=== PATIENT | female | born 1990 | race Caucasian/White ===

== ENCOUNTER 2018-02-27 17:34 | Outpatient (CLI) | payer BC, SELFPAY ==
[2018-02-27 18:06] LABS: Absolute Basophil Count 0.04 k/cumm (0.0-0.2); Absolute Monocyte Count 0.37 k/cumm (0.11-0.7); Basophils % 0.7; Eosinophils % 6.5; HCT 39.4 % (36.0-46.0); HGB 13.6 g/dL (12.0-15.5); Immature Grans % 0.2; Lymphocytes % 29.4; Mean Corp. HGB Concentration 34.5 g/dL (32.0-36.0); Mean Corpuscular Hemoglobin 30.6 pg (27.0-33.0); Mean Corpuscular Volume 88.5 fL (80-95); Mean Platelet Volume 10.4 fL (8.0-11.0); Neutrophils % 57.2; Platelet Count 233 x1000/uL (130-400); RBC 4.45 m/cumm (4.00-5.20); RBC Distribution Width 11.8 % (11.7-14.6); White Blood Cell Count 6.12 k/cumm (4.4-10.8)
[2018-02-27 18:20] LABS: Abs Immature Grans 0.01 k/cumm (0.0-0.09)
== END 2018-02-27 17:54 ==
PROVIDERS: PCP Nurse Practitioner Family; Visit Provider Internal Medicine Hematology & Oncology
DX: D69.3 Immune thrombocytopenic purpura (principal)
CPT/HCPCS: 85025

== ENCOUNTER 2018-04-01 20:28 | Emergency (ER) | payer BC, SELFPAY ==
[2018-04-01 20:38] VITALS: BP 125/80; PULSE 97; RESP 18; TEMP 37.5; O2SAT 99
--- NOTE | 2018-04-01 20:56 | W.ED.GENAD ---
Discharge Plan Disposition Patient Disposition: HOME Condition: Stable Discharge Details Chief Complaint: Orthopedic Clinical Impression: Lumbar strain Primary Care Provider: Jessica Mohamud ED Provider: Raji Saldaña Home Meds and New Rx's Prescriptions: New cyclobenzaprine 10 mg tablet 10 mg PO TID PRN (Reason: pain) Qty: 20 RF: 0 Continue cyclobenzaprine 10 mg Tablet 10 mg PO PRN PRNRF: 0 promethazine 12.5 mg Tablet 12.5 mg PO PRN PRNRF: 0 Discharge Instructions Instructions: Low Back Strain (ED) Discharge Data Discharge Physician: Raji Saldaña Medical Decision Making 27 yo female with hx of ITP, fibromyalgia, migraines, who comes in with 2 weeks of lower back pain. Denies fevers, urinary retention, ivdu, fevers, weakness. She denies any trauma or unexplained weight loss. She has pain throughout the lumbar region, no saddle anesthesia and is ambulating on her own. Based on her exam doubt sea or cauda equina or other spinal cord pathology, do not feel emergent MRI indicated. No trauma and no systemic symptoms so doubt fx of cancer at this time so do not feel xray or ct indicated. I suspect muscle spasm vs strain, or possible spinal stenosis vs disc hernaition. Will treat her pain and ressess. She is concered about her plt count so will check this as well pt's pain after a dose of toradol given her plt counts are normal is now to her baseline, stll has reassuing neuro exam. Will d/c and have her f/u with pcp, return precautions given Differential Diagnosis spinal stenosis, disc herniation, muscle spasm HPI General Mode of arrival: ambulatory. Date/Time Provider Initiated Documentation: 04/01/18 20:37. Limitations to Documentation: no limitations. Information obtained by: patient. History of Present Illness 27 year old F presents to the emergency department with the chief complaint of back pain, described as moderate, with intensity rated at 5. Quality is described as aching, and is localized to the back. Patient reports no radiation. Patient started experiencing this week(s) (2) other things that improve symptom(s), (bending forward) No exacerbating factors reported . Patient notes no other symptoms.. Patient did receive the following treatments prior to arrival, other (tylenol) Related Data Home Medications Medication Instructions Recorded Confirmed cyclobenzaprine 10 mg PO PRN PRN 04/01/18 04/01/18 cyclobenzaprine 10 mg PO TID PRN #20 tab 04/01/18 promethazine 12.5 mg PO PRN PRN 04/01/18 04/01/18 Previous Rx's Medication Instructions Recorded cyclobenzaprine 10 mg PO TID PRN #20 tab 04/01/18 Allergies Allergy/AdvReac Type Severity Reaction Status Date / Time chocolate flavor Allergy Severe Painful Unverified 10/07/17 11:31 tongue gluten Allergy Severe Gi Upset Unverified 10/07/17 11:31 ondansetron [From Zofran] Allergy Intermediate Other (See Unverified 04/01/18 20:46 Comment) lactase [From Dairy Aid] AdvReac Unverified 10/07/17 11:31 peanut AdvReac Unverified 10/07/17 11:31 pineapple AdvReac Unverified 10/07/17 11:31 Yeast AdvReac Unverified 10/07/17 11:31 Environmental Allergy Intermediate Runny Uncoded 10/07/17 11:31 nose, sneezing cottage cheese AdvReac Uncoded 10/07/17 11:31 wheat AdvReac Uncoded 10/07/17 11:31 General Stated Complaint: Orthopedic ALL: 4 Review of Systems Review of Systems All systems reviewed & are unremarkable except as noted in HPI and below Constitutional Denies chills, Denies fever(s) and Denies weakness Eyes Denies loss of vision ENT Denies change in voice Cardiovascular Denies chest pain and Denies dyspnea Respiratory Denies dyspnea Gastrointestinal Denies abdominal pain, Denies nausea and Denies vomiting Genitourinary Denies dysuria Musculoskeletal Denies joint swelling Integumentary/Breasts Denies rash Neurologic Denies loss of vision and Denies weakness Psychiatric Denies depression Endocrine Denies cold intolerance and Denies heat intolerance Allergic/Immunologic Reports urticaria PFSH Family History Mother Polyp of colon Grandmother Diabetes Polyp of colon aunt Diabetes Polyp of colon uncle Diabetes Polyp of colon Medical History Migraine Social History Smoking/Tobacco Use Status: Former Tobacco Use Exam Const General: no acute distress Orientation: alert HENMT Head: normal to inspection Ears: external ears normal General nose exam: external nose normal Mouth: moist mucous membranes Eyes General: appearance normal, both eyes and all related structures Neck Neck: normal visual inspection Resp Effort & Inspection: normal respiratory effort and able to speak in complete sentences Cardio Rate: regular rate Skin General skin exam: no rashes or lesions noted Neuro General: alert and oriented x3 Extrem General: normal to inspection Psych Mental Status: mental status grossly normal Course Vital Signs Temperature 37.5 C 04/01/18 20:38 Pulse 97 H 04/01/18 20:38 Respiratory Rate 18 04/01/18 20:38 Blood Pressure 125/80 04/01/18 20:38 Pulse Oximetry 99 04/01/18 20:38 Temperature 37.5 C 04/01/18 20:38 Temperature Source Temporal Artery Scan 04/01/18 20:38 Pulse 97 H 04/01/18 20:38 Respiratory Rate 18 04/01/18 20:38 Respiratory Effort 04/01/18 20:38 Blood Pressure 125/80 04/01/18 20:38 Pulse Oximetry 99 04/01/18 20:38 Oxygen Delivery Method Room Air 04/01/18 20:38 Oxygen Flow Rate 0 04/01/18 20:38 Pain Level 8 04/01/18 20:44
[2018-04-01] MEDS: Cyclobenzaprine 10 MG TAB PO ×2 (20:58→22:44)
--- NOTE | 2018-04-01 20:59 | ED.GENADUL_ITS ---
Discharge Plan Disposition Patient Disposition: HOME Condition: Stable Discharge Details Chief Complaint: Orthopedic Clinical Impression: Lumbar strain Primary Care Provider: Jessica Mohamud ED Provider: Raji Saldaña Home Meds and New Rx's Prescriptions: New cyclobenzaprine 10 mg tablet 10 mg PO TID PRN (Reason: pain) Qty: 20 RF: 0 Continue cyclobenzaprine 10 mg Tablet 10 mg PO PRN PRNRF: 0 promethazine 12.5 mg Tablet 12.5 mg PO PRN PRNRF: 0 Discharge Instructions Instructions: Low Back Strain (ED) Discharge Data Discharge Physician: Raji Saldaña Medical Decision Making 27 yo female with hx of ITP, fibromyalgia, migraines, who comes in with 2 weeks of lower back pain. Denies fevers, urinary retention, ivdu, fevers, weakness. She denies any trauma or unexplained weight loss. She has pain throughout the lumbar region, no saddle anesthesia and is ambulating on her own. Based on her exam doubt sea or cauda equina or other spinal cord pathology, do not feel emergent MRI indicated. No trauma and no systemic symptoms so doubt fx of cancer at this time so do not feel xray or ct indicated. I suspect muscle spasm vs strain, or possible spinal stenosis vs disc hernaition. Will treat her pain and ressess. She is concered about her plt count so will check this as well pt's pain after a dose of toradol given her plt counts are normal is now to her baseline, stll has reassuing neuro exam. Will d/c and have her f/u with pcp, return precautions given Differential Diagnosis spinal stenosis, disc herniation, muscle spasm HPI General Mode of arrival: ambulatory . Date/Time Provider Initiated Documentation: 04/01/18 20:37 . Limitations to Documentation: no limitations . Information obtained by: patient . History of Present Illness 27 year old F presents to the emergency department with the chief complaint of back pain, described as moderate, with intensity rated at 5. Quality is described as aching, and is localized to the back. Patient reports no radiation. Patient started experiencing this week(s) (2) other things that improve symptom(s), (bending forward) No exacerbating factors reported . Patient notes no other symptoms.. Patient did receive the following treatments prior to arrival, other (tylenol) Related Data Home Medications Medication Instructions Recorded Confirmed cyclobenzaprine 10 mg PO PRN PRN 04/01/18 04/01/18 cyclobenzaprine 10 mg PO TID PRN #20 tab 04/01/18 promethazine 12.5 mg PO PRN PRN 04/01/18 04/01/18 Previous Rx's Medication Instructions Recorded cyclobenzaprine 10 mg PO TID PRN #20 tab 04/01/18 Allergies Allergy/AdvReac Type Severity Reaction Status Date / Time chocolate flavor Allergy Severe Painful Unverified 10/07/17 11:31 tongue gluten Allergy Severe Gi Upset Unverified 10/07/17 11:31 ondansetron [From Zofran] Allergy Intermediate Other (See Unverified 04/01/18 20 :46 Comment) lactase [From Dairy Aid] AdvReac Unverified 10/07/17 11:31 peanut AdvReac Unverified 10/07/17 11:31 pineapple AdvReac Unverified 10/07/17 11:31 Yeast AdvReac Unverified 10/07/17 11:31 Environmental Allergy Intermediate Runny Uncoded 10/07/17 11:31 nose, sneezing cottage cheese AdvReac Uncoded 10/07/17 11:31 wheat AdvReac Uncoded 10/07/17 11:31 General Stated Complaint: Orthopedic ALL: 4 Review of Systems Review of Systems All systems reviewed & are unremarkable except as noted in HPI and below Constitutional Denies chills, Denies fever(s) and Denies weakness Eyes Denies loss of vision ENT Denies change in voice Cardiovascular Denies chest pain and Denies dyspnea Respiratory Denies dyspnea Gastrointestinal Denies abdominal pain, Denies nausea and Denies vomiting Genitourinary Denies dysuria Musculoskeletal Denies joint swelling Integumentary/Breasts Denies rash Neurologic Denies loss of vision and Denies weakness Psychiatric Denies depression Endocrine Denies cold intolerance and Denies heat intolerance Allergic/Immunologic Reports urticaria PFSH Family History Mother Polyp of colon Grandmother Diabetes Polyp of colon aunt Diabetes Polyp of colon uncle Diabetes Polyp of colon Medical History Migraine Social History Smoking/Tobacco Use Status: Former Tobacco Use Exam Const General: no acute distress Orientation: alert HENMT Head: normal to inspection Ears: external ears normal General nose exam: external nose normal Mouth: moist mucous membranes Eyes General: appearance normal, both eyes and all related structures Neck Neck: normal visual inspection Resp Effort & Inspection: normal respiratory effort and able to speak in complete sentences Cardio Rate: regular rate Skin General skin exam: no rashes or lesions noted Neuro General: alert and oriented x3 Extrem General: normal to inspection Psych Mental Status: mental status grossly normal Course Vital Signs Temperature 37.5 C 04/01/18 20:38 Pulse 97 H 04/01/18 20:38 Respiratory Rate 18 04/01/18 20:38 Blood Pressure 125/80 04/01/18 20:38 Pulse Oximetry 99 04/01/18 20:38 Temperature 37.5 C 04/01/18 20:38 Temperature Source Temporal Artery Scan 04/01/18 20:38 Pulse 97 H 04/01/18 20:38 Respiratory Rate 18 04/01/18 20:38 Respiratory Effort 04/01/18 20:38 Blood Pressure 125/80 04/01/18 20:38 Pulse Oximetry 99 04/01/18 20:38 Oxygen Delivery Method Room Air 04/01/18 20:38 Oxygen Flow Rate 0 04/01/18 20:38 Pain Level 8 04/01/18 20:44
[2018-04-01] MEDS: Promethazine 25 MG TAB (21:02)
[2018-04-01 21:12] LABS: Abs Immature Grans 0.02 k/cumm (0.0-0.09); Absolute Basophil Count 0.04 k/cumm (0.0-0.2); Absolute Eosinophil Count 0.37 k/cumm (0.0-0.7); Absolute Lymphocyte Count 3.23 k/cumm (1.2-3.4); Absolute Monocyte Count 0.68 k/cumm (0.11-0.7); Absolute Neutrophil Count 6.73 k/cumm (1.2-6.7); Basophils % 0.4; Eosinophils % 3.3; HCT 37.1 % (36.0-46.0); HGB 13.2 g/dL (12.0-15.5); Immature Grans % 0.2; Lymphocytes % 29.2; Mean Corp. HGB Concentration 35.6 g/dL (32.0-36.0); Mean Corpuscular Hemoglobin 30.8 pg (27.0-33.0); Mean Corpuscular Volume 86.7 fL (80-95); Mean Platelet Volume 9.6 fL (8.0-11.0); Monocytes % 6.1; Neutrophils % 60.8; Platelet Count 247 x1000/uL (130-400); RBC 4.28 m/cumm (4.00-5.20); RBC Distribution Width 11.9 % (11.7-14.6); White Blood Cell Count 11.07 k/cumm (4.4-10.8)
[2018-04-01] MEDS: Ketorolac 30 MG/ML VIAL IM (22:09)
[2018-04-01] MEDS: Promethazine 25 MG TAB PO (22:09)
== END 2018-04-01 22:53 | disposition home or self-care (01) ==
PROVIDERS: Emergency Provider Emergency Medicine; PCP Nurse Practitioner Family
DX: S39.012A Strain of muscle, fascia and tendon of lower back, initial encounter (principal); X50.9XXA Other and unspecified overexertion or strenuous movements or postures, initial encounter
CPT/HCPCS: 36415; 96372; 99284; 85025; 99283; J1885

== ENCOUNTER 2018-04-21 01:22 | Emergency (ER) | payer BC, SELFPAY ==
[2018-04-21 01:31] VITALS: BP 130/91; PULSE 116; RESP 16; TEMP 36.6; O2SAT 99
--- NOTE | 2018-04-21 02:11 | W.ED.GENAD ---
Discharge Plan Disposition Patient Disposition: HOME Condition: Good Discharge Details Chief Complaint: Nausea/Vomit/Diar Clinical Impression: Abdominal cramping, Nausea, vomiting, and diarrhea Primary Care Provider: Jessica Mohamud ED Provider: Pacheco Russell Meds and Gianfranco Rx's Prescriptions: New metronidazole 500 mg tablet 500 mg PO TID Qty: 20 RF: 0 dicyclomine 20 mg tablet 20 mg PO Q6H PRN PRN (Reason: cramping) Qty: 7 RF: 0 promethazine 25 mg tablet 25 mg PO Q6H PRN (Reason: nausea and vomiting) Qty: 20 RF: 0 Continue cyclobenzaprine 10 mg tablet 10 mg PO TID PRN (Reason: pain) Qty: 20 RF: 0 Discontinued promethazine 12.5 mg Tablet 12.5 mg PO PRN PRNRF: 0 Discharge Instructions Instructions: Metronidazole (By mouth), Acute Nausea and Vomiting (ED) Additional Instructions: Use the promethazine for nausea and vomiting. Use the dicyclomine for abdominal cramping. May use Tylenol for pain and fever as well. Antibiotic for presumed colitis. Follow-up with your doctor this week. Return to ED for high fever, persistent vomiting, worsening abdominal pain, bloody diarrhea Referrals: Jessica Mohamud [Primary Care Provider] - Medical Decision Making Patient presenting with nausea, vomiting, diarrhea acute onset this evening. Prior history of colitis for which she has been scoped a number of times with no clear etiology made. There has been no blood in her diarrhea. Her abdomen is mildly tender on the left side. IV is established and fluids and Phenergan ordered. Laboratory studies were ordered. Patient does have an elevated white count 16. Platelets counts are normal tonight at 236. Chemistries unremarkable other than slightly low potassium at 3.4. Liver function and lipase are normal. Urine positive for some blood and ketones. She does have a few red cells and white cells on micro but has many epithelial cells suggesting contamination. She has no urinary symptoms so this is not treated. Patient does feel better after Bentyl. She has not had further vomiting. She still has some abdominal discomfort to palpation but no guarding and nothing surgical. She did spike a low-grade fever here. She has had a handful of CAT scans in the past. I really do not want to rescan her tonight. It is possible that she has recurrent colitis but since it has been indeterminate I do not wish to start her on prednisone. I think it reasonable to try Flagyl and have her follow-up with primary care this week. Return to ED for worsening abdominal pain, bloody diarrhea, persistent vomiting, continued high fevers. HPI General Mode of arrival: ambulatory. Date/Time Provider Initiated Documentation: 04/21/18 02:10. Limitations to Documentation: no limitations. Information obtained by: patient. HPI Narrative: Patient presents to ED with complaints of nausea, vomiting, diarrhea since earlier this evening. She has been unable to keep anything down despite taking Zofran and Phenergan at home. She reports nonbloody emesis and diarrhea. She apparently has history of colitis of unknown etiology. She has no fever. She has crampy abdominal pain more left-sided than right. She has no urinary symptoms other than decreased urination. She has no vaginal bleeding or discharge. She denies . Related Data Home Medications Medication Instructions Recorded Confirmed cyclobenzaprine 10 mg PO TID PRN #20 tab 04/01/18 04/21/18 dicyclomine 20 mg PO Q6H PRN PRN #7 tab 04/21/18 metronidazole 500 mg PO TID #20 tab 04/21/18 promethazine 25 mg PO Q6H PRN #20 tab 04/21/18 Previous Rx's Medication Instructions Recorded cyclobenzaprine 10 mg PO TID PRN #20 tab 04/01/18 dicyclomine 20 mg PO Q6H PRN PRN #7 tab 04/21/18 metronidazole 500 mg PO TID #20 tab 04/21/18 promethazine 25 mg PO Q6H PRN #20 tab 04/21/18 Allergies Allergy/AdvReac Type Severity Reaction Status Date / Time chocolate flavor Allergy Severe Painful Unverified 04/21/18 01:35 tongue gluten Allergy Severe Gi Upset Unverified 04/21/18 01:35 ondansetron [From Zofran] Allergy Intermediate Other (See Unverified 04/21/18 01:35 Comment) lactase [From Dairy Aid] AdvReac Unverified 04/21/18 01:35 peanut AdvReac Unverified 04/21/18 01:35 pineapple AdvReac Unverified 04/21/18 01:35 Yeast AdvReac Unverified 04/21/18 01:35 Environmental Allergy Intermediate Runny Uncoded 04/21/18 01:35 nose, sneezing cottage cheese AdvReac Uncoded 04/21/18 01:35 wheat AdvReac Uncoded 04/21/18 01:35 General Stated Complaint: Nausea/Vomit/Diar ALL: 3 Review of Systems Constitutional Denies chills, Denies fever(s), Denies headache(s) and Denies weakness Eyes Denies eye discharge and Denies eye pain ENT Denies headache(s), Denies nasal congestion and Denies sore throat Cardiovascular Denies chest pain, Denies rapid heart rate and Denies dyspnea Respiratory Denies cough and Denies dyspnea Gastrointestinal Reports abdominal pain, Denies melena, Denies hematochezia, Reports cramping, Reports diarrhea, Reports nausea, Reports vomiting and Denies hematemesis Genitourinary Denies abnormal vaginal bleeding, Denies dysuria and Denies flank pain Musculoskeletal Denies back pain, Denies myalgias, Denies arthralgias and Denies numbness Integumentary/Breasts Denies rash Neurologic Denies headache(s), Denies numbness and Denies weakness Exam Const General: cooperative and no acute distress Orientation: alert and oriented x3 [facility] Head: normocephalic and atraumatic Mouth: mucous membranes dry Eyes Conjunctivae: conjunctivae normal Sclera: sclerae normal Resp Effort & Inspection: normal respiratory effort Auscultation: clear to auscultation bilaterally Cardio Rate: regular rate Rhythm: regular rhythm Heart Sounds: S1 normal and S2 normal GI Inspection: normal to inspection Palpation: soft, not firm, no guarding and tender (mildly tender to palpation on left) Auscultation: normal bowel sounds Skin General skin exam: no rashes or lesions noted Neuro General: alert, oriented x3, no focal motor deficits and CN's II-XI intact bilaterally Extrem General: normal to inspection and full ROM Course Vital Signs Temperature 97.9 F 04/21/18 01:31 Pulse 116 H 04/21/18 01:31 Respiratory Rate 16 04/21/18 01:31 Blood Pressure 130/91 H 04/21/18 01:31 Pulse Oximetry 99 04/21/18 01:31 Temperature 97.9 F 04/21/18 01:31 Temperature Source Skin 04/21/18 01:31 Pulse 116 H 04/21/18 01:31 Respiratory Rate 16 04/21/18 01:31 Respiratory Effort Non-Labored 04/21/18 01:33 Blood Pressure 130/91 H 04/21/18 01:31 Pulse Oximetry 99 04/21/18 01:31 Pain Level 6 04/21/18 01:31
--- NOTE | 2018-04-21 02:17 | ED.GENADUL_ITS ---
Discharge Plan Disposition Patient Disposition: HOME Condition: Good Discharge Details Chief Complaint: Nausea/Vomit/Diar Clinical Impression: Abdominal cramping, Nausea, vomiting, and diarrhea Primary Care Provider: Jessica Mohamud ED Provider: Pacheco Russell Meds and Gianfranco Rx's Prescriptions: New metronidazole 500 mg tablet 500 mg PO TID Qty: 20 RF: 0 dicyclomine 20 mg tablet 20 mg PO Q6H PRN PRN (Reason: cramping) Qty: 7 RF: 0 promethazine 25 mg tablet 25 mg PO Q6H PRN (Reason: nausea and vomiting) Qty: 20 RF: 0 Continue cyclobenzaprine 10 mg tablet 10 mg PO TID PRN (Reason: pain) Qty: 20 RF: 0 Discontinued promethazine 12.5 mg Tablet 12.5 mg PO PRN PRNRF: 0 Discharge Instructions Instructions: Metronidazole (By mouth), Acute Nausea and Vomiting (ED) Additional Instructions: Use the promethazine for nausea and vomiting. Use the dicyclomine for abdominal cramping. May use Tylenol for pain and fever as well. Antibiotic for presumed colitis. Follow-up with your doctor this week. Return to ED for high fever, persistent vomiting, worsening abdominal pain, bloody diarrhea Referrals: Jessica Mohamud [Primary Care Provider] - Medical Decision Making Patient presenting with nausea, vomiting, diarrhea acute onset this evening. Prior history of colitis for which she has been scoped a number of times with no clear etiology made. There has been no blood in her diarrhea. Her abdomen is mildly tender on the left side. IV is established and fluids and Phenergan ordered. Laboratory studies were ordered. Patient does have an elevated white count 16. Platelets counts are normal tonight at 236. Chemistries unremarkable other than slightly low potassium at 3.4. Liver function and lipase are normal. Urine positive for some blood and ketones. She does have a few red cells and white cells on micro but has many epithelial cells suggesting contamination. She has no urinary symptoms so this is not treated. Patient does feel better after Bentyl. She has not had further vomiting. She still has some abdominal discomfort to palpation but no guarding and nothing surgical. She did spike a low-grade fever here. She has had a handful of CAT scans in the past. I really do not want to rescan her tonight. It is possible that she has recurrent colitis but since it has been indeterminate I do not wish to start her on prednisone. I think it reasonable to try Flagyl and have her follow-up with primary care this week. Return to ED for worsening abdominal pain, bloody diarrhea, persistent vomiting, continued high fevers. HPI General Mode of arrival: ambulatory . Date/Time Provider Initiated Documentation: 04/21/18 02:10 . Limitations to Documentation: no limitations . Information obtained by: patient . HPI Narrative: Patient presents to ED with complaints of nausea, vomiting, diarrhea since earlier this evening. She has been unable to keep anything down despite taking Zofran and Phenergan at home. She reports nonbloody emesis and diarrhea. She apparently has history of colitis of unknown etiology. She has no fever. She has crampy abdominal pain more left-sided than right. She has no urinary symptoms other than decreased urination. She has no vaginal bleeding or discharge. She denies . Related Data Home Medications Medication Instructions Recorded Confirmed cyclobenzaprine 10 mg PO TID PRN #20 tab 04/01/18 04/21/18 dicyclomine 20 mg PO Q6H PRN PRN #7 tab 04/21/18 metronidazole 500 mg PO TID #20 tab 04/21/18 promethazine 25 mg PO Q6H PRN #20 tab 04/21/18 Previous Rx's Medication Instructions Recorded cyclobenzaprine 10 mg PO TID PRN #20 tab 04/01/18 dicyclomine 20 mg PO Q6H PRN PRN #7 tab 04/21/18 metronidazole 500 mg PO TID #20 tab 04/21/18 promethazine 25 mg PO Q6H PRN #20 tab 04/21/18 Allergies Allergy/AdvReac Type Severity Reaction Status Date / Time chocolate flavor Allergy Severe Painful Unverified 04/21/18 01:35 tongue gluten Allergy Severe Gi Upset Unverified 04/21/18 01:35 ondansetron [From Zofran] Allergy Intermediate Other (See Unverified 04/21/18 01 :35 Comment) lactase [From Dairy Aid] AdvReac Unverified 04/21/18 01:35 peanut AdvReac Unverified 04/21/18 01:35 pineapple AdvReac Unverified 04/21/18 01:35 Yeast AdvReac Unverified 04/21/18 01:35 Environmental Allergy Intermediate Runny Uncoded 04/21/18 01:35 nose, sneezing cottage cheese AdvReac Uncoded 04/21/18 01:35 wheat AdvReac Uncoded 04/21/18 01:35 General Stated Complaint: Nausea/Vomit/Diar ALL: 3 Review of Systems Constitutional Denies chills, Denies fever(s), Denies headache(s) and Denies weakness Eyes Denies eye discharge and Denies eye pain ENT Denies headache(s), Denies nasal congestion and Denies sore throat Cardiovascular Denies chest pain, Denies rapid heart rate and Denies dyspnea Respiratory Denies cough and Denies dyspnea Gastrointestinal Reports abdominal pain, Denies melena, Denies hematochezia, Reports cramping, Reports diarrhea, Reports nausea, Reports vomiting and Denies hematemesis Genitourinary Denies abnormal vaginal bleeding, Denies dysuria and Denies flank pain Musculoskeletal Denies back pain, Denies myalgias, Denies arthralgias and Denies numbness Integumentary/Breasts Denies rash Neurologic Denies headache(s), Denies numbness and Denies weakness Exam Const General: cooperative and no acute distress Orientation: alert and oriented x3 [facility] Head: normocephalic and atraumatic Mouth: mucous membranes dry Eyes Conjunctivae: conjunctivae normal Sclera: sclerae normal Resp Effort & Inspection: normal respiratory effort Auscultation: clear to auscultation bilaterally Cardio Rate: regular rate Rhythm: regular rhythm Heart Sounds: S1 normal and S2 normal GI Inspection: normal to inspection Palpation: soft, not firm, no guarding and tender (mildly tender to palpation on left) Auscultation: normal bowel sounds Skin General skin exam: no rashes or lesions noted Neuro General: alert, oriented x3, no focal motor deficits and CN's II-XI intact bilaterally Extrem General: normal to inspection and full ROM Course Vital Signs Temperature 97.9 F 04/21/18 01:31 Pulse 116 H 04/21/18 01:31 Respiratory Rate 16 04/21/18 01:31 Blood Pressure 130/91 H 04/21/18 01:31 Pulse Oximetry 99 04/21/18 01:31 Temperature 97.9 F 04/21/18 01:31 Temperature Source Skin 04/21/18 01:31 Pulse 116 H 04/21/18 01:31 Respiratory Rate 16 04/21/18 01:31 Respiratory Effort Non-Labored 04/21/18 01:33 Blood Pressure 130/91 H 04/21/18 01:31 Pulse Oximetry 99 04/21/18 01:31 Pain Level 6 04/21/18 01:31
[2018-04-21 02:28] LABS: Abs Immature Grans 0.04 k/cumm (0.0-0.09); Absolute Eosinophil Count 0.19 k/cumm (0.0-0.7); Absolute Monocyte Count 1.09 k/cumm (0.11-0.7); Absolute Neutrophil Count 13.52 k/cumm (1.2-6.7); Basophils % 0.2; Eosinophils % 1.2; HGB 13.7 g/dL (12.0-15.5); Immature Grans % 0.2; Lymphocytes % 7.5; Mean Corp. HGB Concentration 35.1 g/dL (32.0-36.0); Mean Corpuscular Hemoglobin 31.1 pg (27.0-33.0); Mean Corpuscular Volume 88.6 fL (80-95); Mean Platelet Volume 9.4 fL (8.0-11.0); Monocytes % 6.8; Neutrophils % 84.1; Platelet Count 236 x1000/uL (130-400); RBC Distribution Width 12.1 % (11.7-14.6); White Blood Cell Count 16.08 k/cumm (4.4-10.8)
[2018-04-21 02:30] LABS: Absolute Basophil Count 0.03 k/cumm (0.0-0.2); Absolute Lymphocyte Count 1.21 k/cumm (1.2-3.4)
[2018-04-21] MEDS: Normal Saline 1,000 ML 1000 ML IV (02:33)
[2018-04-21 02:40] LABS: ALT 19 U/L (12-78); AST 17 U/L (15-37); Albumin 4.2 g/dL (3.4-5.0); Alkaline Phosphatase 69 U/L (46-116); Anion Gap 11.2 mmol/L (3-11); BUN 8 mg/dL (7-18); Bilirubin, Total 0.9 mg/dL (0.2-1.0); CO2 26.8 mmol/L (21.0-32.0); CREATININE 0.87 mg/dL (0.55-1.02); Calcium 8.8 mg/dL (8.5-10.1); Chloride 103 mmol/L (98-107); Glucose 96 mg/dL (70-100); Lipase 125 U/L (73-393); Potassium 3.4 mmol/L (3.5-5.1); Sodium 141 mmol/L (136-145); Total Protein 7.4 g/dL (6.4-8.2)
[2018-04-21 03:19] LABS: Bilirubin Negative (Negative); Blood Moderate (Negative); Clarity Sl Cloudy; Glucose Negative (Negative); Ketones 15 mg/dL (Negative); Leukocyte Esterase Negative (Negative); Nitrite Negative (Negative); Specific Gravity 1.025 (1.005-1.025); Urobilinogen 0.2 EU/dL (Up TO 0.2)
[2018-04-21 03:26] LABS: Bacteria Few HPF (Negative); C & S Indicated? No/Sq. Contamination; Casts Negative LPF (Negative); Crystals Negative HPF (Negative); Epithelial Cells Many HPF (Negative); Mucus Heavy (Negative)
[2018-04-21] MEDS: Dicyclomine 20 MG TAB PO (03:28)
[2018-04-21 04:46] VITALS: BP 108/64; PULSE 96; RESP 16; TEMP 38; O2SAT 97
[2018-04-21] MEDS: metroNIDAZOLE 500 MG TAB PO (05:00)
== END 2018-04-21 05:05 | disposition home or self-care (01) ==
PROVIDERS: Emergency Provider Emergency Medicine; PCP Nurse Practitioner Family
DX: R11.2 Nausea with vomiting, unspecified (principal); R19.7 Diarrhea, unspecified; R10.32 Left lower quadrant pain; E87.6 Hypokalemia
CPT/HCPCS: 36415; 80053; 81025; 83690; 96361; 96365; 99284; 81003; 81015; 85025

== ENCOUNTER 2018-06-17 02:58 | Outpatient (CLI) | payer BC, SELFPAY ==
[2018-06-17 10:18] LABS: Abs Immature Grans 0.01 k/cumm (0.0-0.09); Absolute Basophil Count 0.04 k/cumm (0.0-0.2); Absolute Lymphocyte Count 2.16 k/cumm (1.2-3.4); Absolute Monocyte Count 0.46 k/cumm (0.11-0.7); Absolute Neutrophil Count 3.81 k/cumm (1.2-6.7); Basophils % 0.6; Eosinophils % 4.4; HCT 40.2 % (36.0-46.0); Immature Grans % 0.1; Lymphocytes % 31.9; Mean Corp. HGB Concentration 34.8 g/dL (32.0-36.0); Mean Corpuscular Hemoglobin 31.1 pg (27.0-33.0); Mean Corpuscular Volume 89.3 fL (80-95); Mean Platelet Volume 10.2 fL (8.0-11.0); Monocytes % 6.8; Neutrophils % 56.2; Platelet Count 237 x1000/uL (130-400); RBC Distribution Width 12.2 % (11.7-14.6); White Blood Cell Count 6.78 k/cumm (4.4-10.8)
== END 2018-06-17 03:18 ==
PROVIDERS: PCP Nurse Practitioner Family; Visit Provider Internal Medicine Hematology & Oncology
DX: D69.3 Immune thrombocytopenic purpura (principal)
CPT/HCPCS: 36415; 85025

== ENCOUNTER 2018-07-02 09:57 | Emergency (ER) | payer BC, SELFPAY ==
[2018-07-02] VITALS (12 sets, daily range): BP systolic 109–115; BP diastolic 62–75; PULSE 85–102; RESP 9–18; TEMP 36.8–37; O2SAT 98–100
--- NOTE | 2018-07-02 10:28 | ED.GENADUL_ITS ---
Discharge Plan Disposition Patient Disposition: HOME Condition: Stable Discharge Details Chief Complaint: Dizzy/Sync Clinical Impression: Vertigo Primary Care Provider: Jessica Mohamud ED Provider: Chantale Phelps Home Meds and New Rx's Prescriptions: New meclizine 25 mg tablet 25 mg PO BID PRN (Reason: vertigo) Qty: 10 RF: 0 Continued cyclobenzaprine 10 mg tablet 10 mg PO TID PRN (Reason: pain) Qty: 20 RF: 0 metronidazole 500 mg tablet 500 mg PO TID Qty: 20 RF: 0 dicyclomine 20 mg tablet 20 mg PO Q6H PRN PRN (Reason: cramping) Qty: 7 RF: 0 promethazine 25 mg tablet 25 mg PO Q6H PRN (Reason: nausea and vomiting) Qty: 20 RF: 0 Discharge Instructions Instructions: Meclizine (By mouth), Vertigo (ED) Additional Instructions: Please return immediately to the emergency department if you develop any new or worsening symptoms or if you become otherwise concerned. It is extremely important that you make an appointment to be seen by your primary care doctor within the next 1-2 weeks in follow-up for this visit. 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 On exam Pt is very well and non-toxic appearing. Neuro exam shows no objective deficit. Unclear peripheral vs central etiology of vertigo, possible metabolic/lyte derangement. Although unlikey, given ITP, raynauds, Pt may have underlying process that would predispose her to CVA. Do not suspect arrhythmia, as Pt with symptoms while in NSR on monitor. Exam/hx not c/w meningitis, ACS, sepsis, other acute emergent life-threatening process. Plan for MRI/MRA brain, screening labs, IVF, meclizine. I discussed imaging tests with Dr. Mi, who reported MRA unnecessary to diagnose posterior circulation CVA. EKG okay. MRI brain neg. Pt reports feeling much better after meclizine. Has been ambulating about ED without issue. Plan for rx meclizine for peripheral vertigo. Lengthy discussion with Pt and her father re: RTED precautions and importance of outpt f/u with PCP. Pt verbalizes understanding of the plan and is amenable. Medical Records Medical records reviewed: Yes I reviewed the patient's medical records. Imaging Data Radiologic Study: Radiologist's impression: MRI neg per radiology Lab Data Lab results reviewed: Yes I reviewed the patient's lab results. Laboratory Tests Range/Units 07/02/18 07/02/18 07/02/18 11:00 12:34 12:34 WBC (4.4-10.8) k/cumm 7.17 RBC (4.00-5.20) m/cumm 4.34 Hgb (12.0-15.5) g/dL 13.6 Hct (36.0-46.0) % 39.0 MCV (80-95) fL 89.9 MCH (27.0-33.0) pg 31.3 MCHC (32.0-36.0) g/dL 34.9 RDW (11.7-14.6) % 12.0 Plt Count (130-400) x1000/uL 256 MPV (8.0-11.0) fL 9.3 Immature Gran % 0.1 Neutrophils % 59.5 Lymphocytes % 30.1 Monocytes % 6.4 Eosinophils % 3.5 Basophils % 0.4 Absolute Neutrophils (1.2-6.7) k/cumm 4.26 Absolute Lymphocytes (1.2-3.4) k/cumm 2.16 Absolute Monocytes (0.11-0.7) k/cumm 0.46 Absolute Eosinophils (0.0-0.7) k/cumm 0.25 Absolute Basophils (0.0-0.2) k/cumm 0.03 Sodium (136-145) mmol/L 141 Potassium (3.5-5.1) mmol/L 3.4 L Chloride (98-107) mmol/L 106 Carbon Dioxide (21.0-32.0) mmol/L 24.7 Anion Gap (3-11) mmol/L 10.3 BUN (7-18) mg/dL 8 Creatinine (0.55-1.02) mg/dL 0.87 Estimated GFR/1.73 m2 (mL/min/1.73m2) >= 60.00 Glucose (70-100) mg/dL 100 Calcium (8.5-10.1) mg/dL 8.8 Total Bilirubin (0.2-1.0) mg/dL 0.6 AST (15-37) U/L 19 ALT (12-78) U/L 18 Alkaline Phosphatase (46-116) U/L 68 Total Protein (6.4-8.2) g/dL 7.7 Albumin (3.4-5.0) g/dL 4.2 Urine Color (Yellow) Yellow Urine Clarity Clear Urine pH (5-8) 7.0 Ur Specific [place] (1.005-1.025) 1.010 Urine Protein (Negative) mg/dL Negative Urine Ketones (Negative) mg/dL Negative Urine Blood (Negative) Negative Urine Nitrite (Negative) Negative Urine Bilirubin (Negative) Negative Urine Urobilinogen (Up TO 0.2) EU/dL 0.2 Ur Leukocyte Esterase (Negative) Negative Urine Glucose (Negative) mg/dL Negative ECG Data Attestation: I personally reviewed and interpreted this ECG (s) as follows: Interpretation: EKG shows normal sinus rhythm at 79, normal axis, no acute ischemic changes, no Brugada, no WPW, no long QT, no HOCM HPI General Mode of arrival: ambulatory . Date/Time Provider Initiated Documentation: 07/02/18 10:28 . Limitations to Documentation: no limitations . Information obtained by: patient, RN notes reviewed and old records reviewed . HPI Narrative: Daniela Ruiz is a 27 y/o woman with history of renal disease, ITP first treated 1 year ago, IBS, asthma presenting to the emergency department with vertigo. Patient reports that 2 days ago she had a sensation of rotation and also as if her whole head was shaking. This occurred at bedtime, although patient was able to go to sleep. When she awoke symptoms have resolved. Patient reports that she had similar sensation again last night, and again went to bed. Patient reports that she when she woke up this morning sensation of motion had increased. She did go to work, but noticed that whenever she was standing up she felt somewhat lightheaded, and also had difficulty walking down the hallway due to feeling off balance. When she tried to sit on the toilet she missed since on the ground due to being off balance. Patient has not fallen or hit her head. She describes her symptoms as a sense of motion and not as a sense of being about to faint. Has not had any loss of consciousness. She denies having any pain. She has had no nausea/vomiting/diarrhea. Patient reports fever without any symptoms for 4 days approximately 2 weeks ago, but otherwise has not had any recent illness. Has been eating and drinking as usual. No recent alcohol or drug use. No recent travel. Has never had similar symptoms in the past. Related Data Home Medications Medication Instructions Recorded Confirmed cyclobenzaprine 10 mg PO TID PRN #20 tab 04/01/18 07/02/18 dicyclomine 20 mg PO Q6H PRN PRN #7 tab 04/21/18 07/02/18 metronidazole 500 mg PO TID #20 tab 04/21/18 07/02/18 promethazine 25 mg PO Q6H PRN #20 tab 04/21/18 07/02/18 meclizine 25 mg PO BID PRN #10 tab 07/02/18 Previous Rx's Medication Instructions Recorded cyclobenzaprine 10 mg PO TID PRN #20 tab 04/01/18 dicyclomine 20 mg PO Q6H PRN PRN #7 tab 04/21/18 metronidazole 500 mg PO TID #20 tab 04/21/18 promethazine 25 mg PO Q6H PRN #20 tab 04/21/18 meclizine 25 mg PO BID PRN #10 tab 07/02/18 Allergies Allergy/AdvReac Type Severity Reaction Status Date / Time chocolate flavor Allergy Severe Painful Unverified 07/02/18 10:07 tongue gluten Allergy Severe Gi Upset Unverified 07/02/18 10:07 ondansetron [From Zofran] Allergy Intermediate Other (See Unverified 07/02/18 10:07 Comment) lactase [From Dairy Aid] AdvReac Unverified 07/02/18 10:07 peanut AdvReac Unverified 07/02/18 10:07 pineapple AdvReac Unverified 07/02/18 10:07 Yeast AdvReac Unverified 07/02/18 10:07 Environmental Allergy Intermediate Runny Uncoded 07/02/18 10:07 nose, sneezing cottage cheese AdvReac Uncoded 07/02/18 10:07 wheat AdvReac Uncoded 07/02/18 10:07 General Stated Complaint: Dizzy/Sync ALL: 2 Review of Systems Review of Systems Constitutional: denies fevers Eyes: denies eye pain ENT: denies facial pain, dental pain, sore throat, ear pain, tinnitus Cardiovascular: denies chest pain, edema Respiratory: denies SOB, cough GI: denies abdominal pain, vomiting, diarrhea : denies flank pain MSK: denies back pain, neck pain, arthralgias, myalgias Skin: denies rash Neuro: denies headaches, weakness, reports vertigo, lightheadedness PFSH Medical History Colitis (Acute) History of ITP (Chronic) Migraine Social History Smoking/Tobacco Use Status: Former Tobacco Use Exam Narrative Exam Narrative: Constitutional: well and [id number], pleasant, conversing normally HENT: head atraumatic, normocephalic normal inspection, mucous membranes moist, b/l TMs and canals normal Eyes: conjunctiva normal, sclera normal, PERRLA 3mm, EOMI without nystagmus Neck: no stridor, normal ROM, trachea midline Chest: normal inspection Resp: normal work of breathing, LCTAB Cardio: normal rate, normal rhythm, no murmur appreciated GI: abdomen soft, non-tender, non-distended Back: normal inspection, no rash Skin: warm, dry, normal color, no rash Neuro: alert, 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 normal tone. normal gait. Ext: no edema Psych: normal mood, normal affect, normal behavior Course Vital Signs Temperature 36.8 C 07/02/18 10:02 Pulse 90 07/02/18 10:02 Respiratory Rate 18 07/02/18 10:02 Blood Pressure 113/64 07/02/18 10:02 Pulse Oximetry 100 07/02/18 10:02 Temperature 36.8 C 07/02/18 10:02 Temperature Source Temporal Artery Scan 07/02/18 10:02 Pulse 90 07/02/18 10:02 Respiratory Rate 18 07/02/18 10:02 Respiratory Effort Non-Labored 07/02/18 10:02 Blood Pressure 113/64 07/02/18 10:02 Blood Pressure Position Supine 07/02/18 10:02 Pulse Oximetry 100 07/02/18 10:02 Oxygen Delivery Method Room Air 07/02/18 10:02 Oxygen Flow Rate 0 07/02/18 10:02 Pain Level 0 07/02/18 10:02
--- NOTE | 2018-07-02 10:48 | DI.MRI_ITS ---
SYMPTOMS/DIAGNOSIS: VERTIGO, H/O ITP MRI OF THE BRAIN: Routine noncontrast examination was performed. There is normal signal in the brain parenchyma. No intracranial mass, midline shift or mass effect is identified. The diffusion weighted images have a normal appearance. No intracranial hemorrhage is present. There is a normal flow void seen in the [place], the distal vertebral arteries and basilar artery. The pituitary gland is grossly unremarkable. The visualized paranasal sinuses are clear. IMPRESSION: Normal MRI of the brain. The findings were discussed with the emergency department on the date of the examination.
[2018-07-02] MEDS: LORazepam 1 MG TAB PO (11:37)
[2018-07-02 12:00] LABS: Bilirubin Negative (Negative); Blood Negative (Negative); Clarity Clear; Glucose Negative (Negative); Ketones Negative (Negative); Leukocyte Esterase Negative (Negative); Nitrite Negative (Negative); Urobilinogen 0.2 EU/dL (Up TO 0.2)
[2018-07-02] MEDS: Meclizine 25 MG TAB PO (12:32)
[2018-07-02] MEDS: Normal Saline 1,000 ML 1000 ML IV (12:33)
[2018-07-02 12:43] LABS: Abs Immature Grans 0.01 k/cumm (0.0-0.09); Absolute Basophil Count 0.03 k/cumm (0.0-0.2); Absolute Eosinophil Count 0.25 k/cumm (0.0-0.7); Absolute Lymphocyte Count 2.16 k/cumm (1.2-3.4); Absolute Monocyte Count 0.46 k/cumm (0.11-0.7); Absolute Neutrophil Count 4.26 k/cumm (1.2-6.7); Basophils % 0.4; Eosinophils % 3.5; HGB 13.6 g/dL (12.0-15.5); Immature Grans % 0.1; Lymphocytes % 30.1; Mean Corp. HGB Concentration 34.9 g/dL (32.0-36.0); Mean Corpuscular Hemoglobin 31.3 pg (27.0-33.0); Mean Corpuscular Volume 89.9 fL (80-95); Mean Platelet Volume 9.3 fL (8.0-11.0); Monocytes % 6.4; Neutrophils % 59.5; Platelet Count 256 x1000/uL (130-400); RBC 4.34 m/cumm (4.00-5.20); White Blood Cell Count 7.17 k/cumm (4.4-10.8)
[2018-07-02 12:56] LABS: ALT 18 U/L (12-78); AST 19 U/L (15-37); Albumin 4.2 g/dL (3.4-5.0); Alkaline Phosphatase 68 U/L (46-116); Anion Gap 10.3 mmol/L (3-11); BUN 8 mg/dL (7-18); Bilirubin, Total 0.6 mg/dL (0.2-1.0); CO2 24.7 mmol/L (21.0-32.0); CREATININE 0.87 mg/dL (0.55-1.02); Calcium 8.8 mg/dL (8.5-10.1); Chloride 106 mmol/L (98-107); Glucose 100 mg/dL (70-100); Potassium 3.4 mmol/L (3.5-5.1); Sodium 141 mmol/L (136-145); Total Protein 7.7 g/dL (6.4-8.2)
--- NOTE | 2018-07-02 14:02 | NUR.NOTE ---
patient reports feelingbetter, eating lunch, IV dc'd patient home with family Nursing Note:
== END 2018-07-02 14:00 | disposition home or self-care (01) ==
PROVIDERS: Emergency Provider Student in an Organized Health Care Education/Training Program; PCP Nurse Practitioner Family
DX: H81.399 Other peripheral vertigo, unspecified ear (principal); D69.3 Immune thrombocytopenic purpura
CPT/HCPCS: 36415; 80053; 81025; 99285; 70551; 81003; 85025

== ENCOUNTER 2018-07-05 21:18 | Outpatient (REF) | payer BC, SELFPAY ==
[2018-07-05 21:54] LABS: Anion Gap 10.3 mmol/L (3-11); BUN 7 mg/dL (7-18); CO2 25.7 mmol/L (21.0-32.0); CREATININE 0.88 mg/dL (0.55-1.02); Calcium 8.7 mg/dL (8.5-10.1); Chloride 106 mmol/L (98-107); Glucose 99 mg/dL (70-100); Potassium 4.3 mmol/L (3.5-5.1); Sodium 142 mmol/L (136-145); TSH (W/Ref FT4) 1.78 uIU/mL (0.358-3.74)
== END 2018-07-05 21:38 ==
LOC: NCHCN 21:18
PROVIDERS: PCP Nurse Practitioner Family; Visit Provider Nurse Practitioner Family
DX: R42 Dizziness and giddiness (principal); F41.8 Other specified anxiety disorders; G47.00 Insomnia, unspecified
CPT/HCPCS: 80048; 84443

== ENCOUNTER 2018-08-02 02:33 | Outpatient (CLI) | payer BC, SELFPAY ==
--- NOTE | 2018-08-09 07:18 | HOLTER_ITS ---
HOLTER MONITOR RECORDING DATE OF DICTATION August 07, 2018 DATE OF RECORDING August 02, 2018 DATE OF ANALYSIS August 05, 2018 INDICATION Dizziness. FINDINGS 1. Baseline sinus rhythm/sinus tachycardia, heart rate spectrum 80 - 161 beats per minute, average 111 beats per minute. 2. No supraventricular ectopy. 3. No ventricular ectopy. 4. No pauses. 5. SYMPTOMS: Chest throbbing x30min with sinus tachycardia 115 beats per minute, dizziness x10 minutes with sinus tachycardia 105 beats per minute, add flutter x5 minutes with sinus rhythm 93 beats per minute, chest throbbing x30 minutes with sinus rhythm 96 beats per minute, dizziness x5 minutes with sinus rhythm 99 beats per minute, chest throbbing x5 minutes with sinus tachycardia 112 beats per minute, dizziness x10 minutes with sinus tachycardia 135 beats per minute, heart burn x30 minutes with sinus tachycardia 113 beats per minute, heart burn x5 minutes with sinus tachycardia 106 beats per minute. Cirilo Morel M.D. RENETTA/amy T - 08/09/2018
== END 2018-08-02 02:53 ==
PROVIDERS: PCP Nurse Practitioner Family; Visit Provider Nurse Practitioner
DX: R42 Dizziness and giddiness (principal); R00.0 Tachycardia, unspecified
CPT/HCPCS: 93225

== ENCOUNTER 2018-08-05 08:37 | Outpatient (CLI) | payer BC, SELFPAY | END 2018-08-05 08:57 | PROVIDERS: PCP Nurse Practitioner Family; Visit Provider Nurse Practitioner | DX: R42 Dizziness and giddiness (principal); R00.0 Tachycardia, unspecified | CPT/HCPCS: 93226 ==

== ENCOUNTER 2018-10-01 15:07 | Outpatient (CLI) | payer BC, SELFPAY ==
[2018-10-01 15:42] LABS: Abs Immature Grans 0.02 k/cumm (0.0-0.09); Absolute Basophil Count 0.05 k/cumm (0.0-0.2); Absolute Eosinophil Count 0.54 k/cumm (0.0-0.7); Absolute Lymphocyte Count 2.46 k/cumm (1.2-3.4); Absolute Monocyte Count 0.55 k/cumm (0.11-0.7); Absolute Neutrophil Count 4.55 k/cumm (1.2-6.7); Basophils % 0.6; Eosinophils % 6.6; HCT 36.8 % (36.0-46.0); HGB 12.2 g/dL (12.0-15.5); Immature Grans % 0.2; Lymphocytes % 30.1; Mean Corp. HGB Concentration 33.2 g/dL (32.0-36.0); Mean Corpuscular Hemoglobin 30.3 pg (27.0-33.0); Mean Corpuscular Volume 91.3 fL (80-95); Mean Platelet Volume 9.1 fL (8.0-11.0); Monocytes % 6.7; Neutrophils % 55.8; Platelet Count 242 x1000/uL (130-400); RBC 4.03 m/cumm (4.00-5.20); RBC Distribution Width 12.1 % (11.7-14.6); White Blood Cell Count 8.17 k/cumm (4.4-10.8)
== END 2018-10-01 15:27 ==
PROVIDERS: PCP Nurse Practitioner Family; Visit Provider Internal Medicine Hematology & Oncology
DX: D69.3 Immune thrombocytopenic purpura (principal)
CPT/HCPCS: 36415; 85025

== ENCOUNTER 2018-10-11 09:44 | Outpatient (CLI) | payer BC, SELFPAY | END 2018-10-11 10:04 | PROVIDERS: PCP Nurse Practitioner Family; Visit Provider Internal Medicine Interventional Cardiology | DX: R00.0 Tachycardia, unspecified (principal) | CPT/HCPCS: 93005; 93010 ==

== ENCOUNTER 2018-11-16 14:12 | Outpatient (REF) | payer BC, SELFPAY ==
[2018-11-16 22:12] LABS: HCT 37.7 % (36.0-46.0); HGB 12.5 g/dL (12.0-15.5); Mean Corp. HGB Concentration 33.2 g/dL (32.0-36.0); Mean Corpuscular Hemoglobin 30.5 pg (27.0-33.0); Mean Platelet Volume 10.2 fL (8.0-11.0); Platelet Count 274 x1000/uL (130-400); RBC Distribution Width 12.6 % (11.7-14.6); White Blood Cell Count 7.25 k/cumm (4.4-10.8)
[2018-11-16 22:37] LABS: TSH (W/Ref FT4) 2.82 uIU/mL (0.358-3.74)
== END 2018-11-16 14:32 ==
LOC: NCHCN 14:12
PROVIDERS: PCP Nurse Practitioner Family; Visit Provider Nurse Practitioner Family
DX: E03.9 Hypothyroidism, unspecified (principal); F41.8 Other specified anxiety disorders; R00.0 Tachycardia, unspecified; E66.9 Obesity, unspecified
CPT/HCPCS: 85027; 84443

== ENCOUNTER 2018-11-29 01:10 | Outpatient (CLI) | payer BC, SELFPAY ==
--- NOTE | 2018-11-29 13:00 | NS.NUTBLAN_ITS ---
DESCRIPTION: Daniela Ruiz presents for weight management for ongoing weight gain. She has co-morbidities of Idiopathic Thrombocytopenia. Her chemo treatment has impacted her lung and muscle capacity. She was also treated with Dexamethasone. She was diagnosed with celiac/crohns disease 4-5 years ago but does not follow gluten free diet at this time. She reports a strong family history of diabetes and is determined to prevent this. Daniela has had a steady weight gain of 28 pounds over the past year with a gain of 5 pounds over the past 3 month. She most recently is following a vegetarian meal plan for past 3 months. She eats 2 eggs with toast for breakfast; protein shake or vegetable sandwich for lunch; grain and vegetables for supper. She also has other protein sources of prydeinig yogurt, cottage cheese or cheese. She drinks Lactaid or almond milk. She does have foods she loves such as Tu and Danie ice cream, munchkins, oatmeal raisin cookies, pretzels, dark chocolate. At times she eats these less discriminately. She also states she sleep eats. She finds wrappers the next morning. She attempts to purchase food that is portioned for her family to avoid having open food available. Daniela states she does not believe she eats more than 1000 calories daily. She has tracked her food in the past. She also reports tendency for dehydration and she has an Noreen to remind her to drinks. Daniela walks 1.5 miles in the evening. She tracks her steps aiming for 10,000 steps. She attempts to do yoga with goal of 30 minutes twice a week. She states she is currently on FMLA for anxiety and depression. BMI: 33 A1c 5.3 NUTRITION DIAGNOSIS: Obesity as a result of night eating and question of chemo treatment and h/o GI distress. IINTERVENTION: Discussed her weight gain causes which she does not feel she understands given she eats minimal calories. DIscussed strategies to decrease likelihood of sleep-eating. Discussed impact of gluten on her GI symptoms and weight. PLAN: She will have snack 1 hour prior to going to bed to address sleep eating follow gluten free meal plan for the next 2 weeks
== END 2018-11-29 01:30 ==
PROVIDERS: PCP Nurse Practitioner Family; Visit Provider Dietitian, Registered
DX: R63.5 Abnormal weight gain (principal); E66.09 Other obesity due to excess calories; Z68.33 Body mass index [BMI] 33.0-33.9, adult; Z71.3 Dietary counseling and surveillance
CPT/HCPCS: 97802

== ENCOUNTER 2019-01-14 12:26 | Emergency (ER) | payer BC, SELFPAY ==
[2019-01-14 12:30] VITALS: BP 121/68; PULSE 91; RESP 20; TEMP 36.8; O2SAT 99
[2019-01-14] MEDS: Normal Saline 1,000 ML 1000 ML IV (13:00)
--- NOTE | 2019-01-14 13:12 | ED.GENADUL_ITS ---
Discharge Plan Disposition Patient Disposition: HOME Condition: Stable Discharge Details Chief Complaint: Nausea/Vomit/Diar Clinical Impression: Abdominal pain Primary Care Provider: Jessica Mohamud ED Provider: Randy Rai Home Meds and New Rx's Prescriptions: No Action Nexplanon 68 mg implant 1 implant SBD ONCE RF: 0 dicyclomine 10 mg capsule 10 mg PO QID RF: 0 albuterol sulfate 2.5 mg /3 mL (0.083 %) solution for nebulization 1.25 mg IH QID PRNRF: 0 Flovent HFA 44 mcg/actuation HFA aerosol inhaler 1 inh IH BID RF: 0 sumatriptan succinate 100 mg tablet 100 mg PO ONCE RF: 0 propranolol 10 mg tablet 10 mg PO BID RF: 0 quetiapine [Seroquel] 25 mg tablet 25 mg PO HS RF: 0 paroxetine HCl [Paxil] 20 mg tablet 30 mg PO DAILY RF: 0 cyclobenzaprine 10 mg tablet 10 mg PO TID PRN (Reason: pain) Qty: 20 RF: 0 meclizine 25 mg tablet 25 mg PO BID PRN (Reason: vertigo) Qty: 10 RF: 0 dicyclomine 20 mg tablet 20 mg PO Q6H PRN PRN (Reason: cramping) Qty: 7 RF: 0 promethazine 25 mg tablet 25 mg PO Q6H PRN (Reason: nausea and vomiting) Qty: 20 RF: 0 Discharge Instructions Instructions: Abdominal Pain (ED) Medical Decision Making 28-year-old female past medical history of IBS and ITP with nausea vomiting and diarrhea benign soft nonrigid no guarding abdominal exam with mild right upper quadrant tenderness positive Sanchez sign. Stool guaiac negative we will check basic labs give IV fluid and right upper quadrant ultrasound and observe in the emergency depart. 2:05 PM patient resting comfortably labs only remarkable for blood sugar 130 patient not fasting to follow-up for repeat labs with 5 primary care. Right upper quadrant ultrasound negative. Will DC patient home fluids rest primary care follow-up Thursday return to ER for worsening pain fever chills inability to tolerate oral fluids or other concern. HPI 28-year-old female past medical history of colitis irritable bowel syndrome & ITP presents with 4 days of diffuse intermittent abdominal pain loose diarrhea and last 2 days with 4-5 episodes of vomiting last episode today with some blood-streaked sputum in the emesis. No known sick contacts no recent trauma no fever chills shortness of breath chest pain loss of consciousness. No previous abdominal surgeries. Pain is sharp nonradiating diffuse mildly worse patient's right upper quadrant. General Date/Time Provider Initiated Documentation: 01/14/19 12:54 . Related Data Home Medications Medication Instructions Recorded Confirmed cyclobenzaprine 10 mg PO TID PRN #20 tab 04/01/18 01/14/19 dicyclomine 20 mg PO Q6H PRN PRN #7 tab 04/21/18 01/14/19 promethazine 25 mg PO Q6H PRN #20 tab 04/21/18 01/14/19 meclizine 25 mg PO BID PRN #10 tab 07/02/18 01/14/19 albuterol sulfate 1.25 mg IH QID PRN 10/11/18 01/14/19 dicyclomine 10 mg capsule 10 mg PO QID 10/11/18 01/14/19 etonogestrel 68 mg subdermal 1 implant SBD ONCE 10/11/18 01/14/19 implant fluticasone propionate 44 1 inh IH BID 10/11/18 01/14/19 mcg/actuation HFA aerosol inhaler paroxetine HCl 20 mg tablet 30 mg PO DAILY tab 10/11/18 01/14/19 propranolol 10 mg tablet 10 mg PO BID 10/11/18 01/14/19 quetiapine 25 mg tablet 25 mg PO HS tab 10/11/18 01/14/19 sumatriptan succinate 100 mg tablet 100 mg PO ONCE 10/11/18 01/14/19 Previous Rx's Medication Instructions Recorded cyclobenzaprine 10 mg PO TID PRN #20 tab 04/01/18 dicyclomine 20 mg PO Q6H PRN PRN #7 tab 04/21/18 promethazine 25 mg PO Q6H PRN #20 tab 04/21/18 meclizine 25 mg PO BID PRN #10 tab 07/02/18 Allergies Allergy/AdvReac Type Severity Reaction Status Date / Time chocolate flavor Allergy Severe Painful Unverified 01/14/19 12:33 tongue gluten Allergy Severe Gi Upset Unverified 01/14/19 12:33 ondansetron [From Zofran] Allergy Intermediate Other (See Unverified 01/14/19 12:33 Comment) lactase [From Dairy Aid] AdvReac Unverified 01/14/19 12:33 peanut AdvReac Unverified 01/14/19 12:33 pineapple AdvReac Unverified 01/14/19 12:33 Yeast AdvReac Unverified 01/14/19 12:33 Environmental Allergy Intermediate Runny Uncoded 01/14/19 12:33 nose, sneezing cottage cheese AdvReac Uncoded 01/14/19 12:33 wheat AdvReac Uncoded 01/14/19 12:33 General Stated Complaint: Nausea/Vomit/Diar ALL: 3 Review of Systems Review of Systems All systems reviewed & are unremarkable except as noted in HPI and below PFSH Social History Smoking/Tobacco Use Status: Former Tobacco Use Alcohol Intake: never Drug use: Never Substance use type: does not use Do you feel safe at home: Yes Do you feel safe in your relationship?: Yes Exam Const General: cooperative, healthy appearing, no acute distress, well developed and well groomed Nutritional Appearance: well nourished Orientation: alert, awake and oriented x3 HENMT Head: normal to inspection, normocephalic and atraumatic Ears: hearing grossly normal bilaterally and external ears normal General nose exam: external nose normal Face and sinus: normal facial exam Mouth: oral mucosae normal and lip normal Chest Chest: normal inspection of the chest Resp Effort & Inspection: normal respiratory effort and able to speak in complete sentences Cardio Jugular venous pressure: no JVD Rate: regular rate GI Inspection: normal to inspection Palpation: soft and tender Percussion: normal to percussion Skin General skin exam: no rashes or lesions noted Lesions: no lesions Rashes: no rashes Trauma: no lacerations or abrasions Neuro General: alert, awake and oriented x3 Cognition: normal cognition Motor: muscle tone normal throughout Sensory Exam: no sensory deficits noted Extrem General: normal to inspection Right upper extremity: normal to inspection Left upper extremity: normal to inspection Right lower extremity: normal to inspection Left lower extremity: normal to inspection Psych Appearance: grossly normal Mental Status: mental status grossly normal Speech and Movement: speech and movement normal Course Vital Signs Temperature 36.8 C 01/14/19 12:30 Pulse 91 H 01/14/19 12:30 Respiratory Rate 20 01/14/19 12:30 Blood Pressure 121/68 01/14/19 12:30 Pulse Oximetry 99 01/14/19 12:30 Temperature 36.8 C 01/14/19 12:30 Temperature Source Temporal Artery Scan 01/14/19 12:30 Pulse 91 H 01/14/19 12:30 Respiratory Rate 20 01/14/19 12:30 Respiratory Effort Non-Labored 01/14/19 12:30 Blood Pressure 121/68 01/14/19 12:30 Pulse Oximetry 99 01/14/19 12:30 Oxygen Delivery Method Room Air 01/14/19 12:30 Oxygen Flow Rate 0 01/14/19 12:30 Pain Level 8 01/14/19 12:30
--- NOTE | 2019-01-14 13:12 | DI.US_ITS ---
SYMPTOM/DIAGNOSIS: RUQ PAIN, NAUSEA, VOMITING, DIARRHEA ABDOMEN ULTRASOUND: Routine examination was performed. The aorta and inferior vena cava are unremarkable. The liver is normal in size. There is diffuse increased echogenicity of the liver consistent with fatty infiltration. No hepatic mass is seen. The gallbladder is negative. No stones or sludge is seen. There is a negative sonographic Sanchez's sign. The common duct is with normal limits at .2 cm. The pancreas, spleen and kidneys are unremarkable. IMPRESSION: Hepatic steatosis.
[2019-01-14 13:27] LABS: Abs Immature Grans 0.03 k/cumm (0.0-0.09); Absolute Basophil Count 0.02 k/cumm (0.0-0.2); Absolute Eosinophil Count 0.08 k/cumm (0.0-0.7); Absolute Lymphocyte Count 0.69 k/cumm (1.2-3.4); Absolute Monocyte Count 0.49 k/cumm (0.11-0.7); Absolute Neutrophil Count 6.87 k/cumm (1.2-6.7); Basophils % 0.2; HCT 42.6 % (36.0-46.0); HGB 14.5 g/dL (12.0-15.5); Immature Grans % 0.4; Lymphocytes % 8.4; Mean Corpuscular Hemoglobin 30.3 pg (27.0-33.0); Mean Corpuscular Volume 88.9 fL (80-95); Mean Platelet Volume 9.1 fL (8.0-11.0); Platelet Count 271 x1000/uL (130-400); RBC 4.79 m/cumm (4.00-5.20); RBC Distribution Width 12.5 % (11.7-14.6); White Blood Cell Count 8.18 k/cumm (4.4-10.8)
[2019-01-14 13:28] LABS: Bilirubin Negative (Negative); Blood Trace-lysed (Negative); Clarity Clear (Clear); Glucose Negative (Negative); Ketones Negative (Negative); Leukocyte Esterase Negative (Negative); Nitrite Negative (Negative); Specific Gravity >= 1.030 (1.005-1.025); Urobilinogen 0.2 EU/dL (Up TO 0.2)
[2019-01-14 13:38] LABS: Bacteria Few HPF (Negative); C & S Indicated? No; Casts Negative LPF (Negative); Crystals Negative HPF (Negative); Epithelial Cells Few HPF (Negative); Mucus Heavy (Negative); Other Cells Rare Renal (Negative); RBC 0-2 (0-2); WBC 0-2 HPF (0-5)
[2019-01-14 13:41] LABS: ALT 20 U/L (12-78); AST 18 U/L (15-37); Albumin 3.9 g/dL (3.4-5.0); Alkaline Phosphatase 99 U/L (46-116); Anion Gap 9.4 mmol/L (3-11); BUN 6 mg/dL (7-18); Bilirubin, Direct 0.05 mg/dL (0.00-0.20); Bilirubin, Total 0.4 mg/dL (0.2-1.0); CO2 25.6 mmol/L (21.0-32.0); CREATININE 0.86 mg/dL (0.55-1.02); Calcium 8.8 mg/dL (8.5-10.1); Chloride 102 mmol/L (98-107); Glucose 131 mg/dL (70-100); Lipase 101 U/L (73-393); Potassium 3.8 mmol/L (3.5-5.1); Sodium 137 mmol/L (136-145); Total Protein 7.8 g/dL (6.4-8.2)
[2019-01-14 14:17] VITALS: BP 121/68; PULSE 91; RESP 20; TEMP 36.8; O2SAT 99
== END 2019-01-14 14:17 | disposition home or self-care (01) ==
PROVIDERS: Emergency Provider Emergency Medicine; PCP Nurse Practitioner Family
DX: R10.11 Right upper quadrant pain (principal)
CPT/HCPCS: 36415; 80053; 80076; 81025; 83690; 96360; 99285; 76700; 81003; 81015; 85025; 99284

== ENCOUNTER 2019-01-14 20:20 | Inpatient (IN) | payer BC, SELFPAY ==
[2019-01-14 20:25] VITALS: BP 127/79; PULSE 121; RESP 20; TEMP 37.2; O2SAT 99
[2019-01-14] MEDS: Normal Saline 1,000 ML 1000 ML IV (21:06)
[2019-01-14 21:36] LABS: Abs Immature Grans 0.01 k/cumm (0.0-0.09); Absolute Basophil Count 0.02 k/cumm (0.0-0.2); Absolute Eosinophil Count 0.03 k/cumm (0.0-0.7); Absolute Lymphocyte Count 0.69 k/cumm (1.2-3.4); Absolute Monocyte Count 0.39 k/cumm (0.11-0.7); Absolute Neutrophil Count 5.91 k/cumm (1.2-6.7); Basophils % 0.3; Eosinophils % 0.4; HGB 13.6 g/dL (12.0-15.5); Immature Grans % 0.1; Lymphocytes % 9.8; Mean Corpuscular Volume 88.1 fL (80-95); Monocytes % 5.5; Neutrophils % 83.9; Platelet Count 230 x1000/uL (130-400); RBC 4.54 m/cumm (4.00-5.20); RBC Distribution Width 12.4 % (11.7-14.6); White Blood Cell Count 7.05 k/cumm (4.4-10.8)
[2019-01-14 21:40] LABS: ALT 21 U/L (12-78); AST 16 U/L (15-37); Albumin 3.6 g/dL (3.4-5.0); Alkaline Phosphatase 92 U/L (46-116); BUN 4 mg/dL (7-18); Bilirubin, Total 0.3 mg/dL (0.2-1.0); CREATININE 0.89 mg/dL (0.55-1.02); Calcium 8.3 mg/dL (8.5-10.1); Chloride 104 mmol/L (98-107); Glucose 109 mg/dL (70-100); Magnesium 1.5 mg/dL (1.8-2.4); Potassium 3.5 mmol/L (3.5-5.1); Sodium 138 mmol/L (136-145); Total Protein 7.1 g/dL (6.4-8.2)
[2019-01-14 22:07] LABS: Lipase 101 U/L (73-393)
[2019-01-14] MEDS: Magnesium Oxide 400 MG TAB PO (23:02)
[2019-01-14] MEDS: Ketorolac 30 MG/ML VIAL IVP (23:02)
--- NOTE | 2019-01-14 23:08 | W.ED.GENAD ---
Discharge Plan Disposition Patient Disposition: [facility] INPATIENT Condition: Stable Discharge Details Chief Complaint: Nausea/Vomit/Diar Clinical Impression: Acute appendicitis Admit Date/Time: 01/15/19 01:12 Admit Provider: Wil Chavez Attending Provider: Wil Chavez Primary Care Provider: Jessica Mohamud ED Provider: Shiv Green Hospital Course Hospital Course: 28 y/o female who presented to the ED on 01/15/19 with findings consistent with acute appendicitis. CT abd/pelvis showed a dilated appendix with scant periappendiceal fluid consistent with an early appendicitis. She underwent an uneventful laparoscopic appendectomy on 01/15/19. Findings noted consistent with possible endometriosis in addition to the early acute appendicitis. Reviewed with patient. She is currently asymptomatic on control. Photos from surgery provided. Patient to follow-up with PCP. Postoperatively she had some nausea and vomiting associated with Dilaudid. She denies any nausea or vomiting this am, has voided, had a bowel movement, and is tolerating a regular diet. She notes some soreness at her umbilical incision site. Pain controlled with Toradol. 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 Homegoing instructions/restrictions discussed. Discharge Instructions Instructions: Laparoscopic Appendectomy (DC) Additional Instructions: No lifting > 20 pounds x 2 weeks. May shower, climb stairs, ambulate as tolerated. Avoid strenuous exercise x 2 weeks. OK to stretch/ walk. Forms: Nursing Discharge Form Referrals: Jessica Mohamud [Primary Care Provider] - (1-2 weeks. Follow-up possible endometriosis on laparoscopy.) Gwen Harrison MD [ [facility] STAFF PHYSICIAN] - (2 weeks. Post-op follow-up s/p laparoscopic appendectomy.) Discharge Data Discharge Date/Time-TO BE ENTERED AT DEPARTURE: 01/15/19 01:51 Medical Decision Making <Taran Wright NP - Last Filed: 01/17/19 19:00> Patient presenting to the emergency department for chief complaint of abdominal pain, nausea vomiting diarrhea. Patient states this started couple days ago with diarrhea that is now worsened with now having abdominal pain and watery diarrhea along with her profuse vomiting. Patient was seen earlier today and evaluated emergency department with no acute findings noted and negative ultrasound the right upper quadrant and was discharged home. Patient went home and was able to take half tablet of Phenergan but this did not help her symptoms and she continued to have nausea and vomiting and not able to tolerate any p.o. intake and came back to the emergency department. Patient does state slightly worsened abdominal pain. Physical exam shows a soft abdomen with tenderness to the left lower quadrant and epigastrium otherwise no focal surgical findings noted but given that patient is having worsening of symptoms and unable to tolerate p.o. intake I do feel that IV fluids, labs, and CT imaging is warranted at this time. Pending results patient given 1 L normal saline, IV Phenergan, and Toradol. Review of labs show unremarkable CBC, CMP showing hypomagnesemia otherwise nondiagnostic findings with normal lipase, and LFTs. <Shiv Green, - Last Filed: 01/15/19 01:15> The case was signed out to me by my colleague Taran Wright. We are pending CT results. CT scan per virtual radiology shows that the appendix is borderline dilated at 7 mm with trace adjacent stranding suspicious for acute appendicitis. I discussed the case with Dr. Chavez, she agrees on the need for surgery in the morning. She has requested that I place admission orders and in order for Invanz. Nasal be placed. She has accepted care for the patient. Currently the patient appears hemodynamically stable. I have extensively reviewed the treatment plan with the patient. I have addressed all patient concerns at this time. I have also discussed the plan with the admitting physician and they agree with the current assessment and plan and have agreed to assume responsibility for the patient. All parties demonstrate verbal understanding and agreement with our assessment and plan at this time. FINDINGS: Liver: Normal. No mass. Gallbladder and bile ducts: Normal. No calcified stones. No ductal dilation. Pancreas: Normal. No ductal dilation. Spleen: Normal. No splenomegaly. Adrenals: Normal. No mass. Kidneys and ureters: Normal. No hydronephrosis. Stomach and bowel: Normal. No obstruction. No mucosal thickening. Appendix: The appendix is borderline dilated at 7 mm with trace adjacent stranding, suspicious for acute appendicitis. Intraperitoneal space: Normal. No free air. No significant fluid collection. Vasculature: Normal. No abdominal aortic aneurysm. Lymph nodes: Normal. No enlarged lymph nodes. Bladder: Unremarkable as visualized. Reproductive: Unremarkable as visualized. Bones/joints: No acute fracture. No dislocation. Soft tissues: Unremarkable. IMPRESSION: The appendix is borderline dilated at 7 mm with trace adjacent stranding, suspicious for acute appendicitis. Dictated and Authenticated by: Raji Rashid MD. Ordering:ISIS Chirinos MD HPI <Taran Wright [employer]TER - Last Filed: 01/17/19 19:00> General Mode of arrival: ambulatory. Date/Time Provider Initiated Documentation: 01/14/19 20:24. Limitations to Documentation: no limitations. Information obtained by: patient. History of Present Illness 28 year old F presents to the emergency department with the chief complaint of Abdominal pain, nausea vomiting diarrhea, described as moderate, with intensity rated at 3. Quality is described as aching and sharp, and is localized to the abdomen. Patient started experiencing this day(s) (4) and it has been constant. No relieving factors improve symptom(s), No exacerbating factors reported . Patient did receive the following treatments prior to arrival, other (P.o. Phenergan) Related Data Home Medications Medication Instructions Recorded Confirmed cyclobenzaprine 10 mg PO TID PRN #20 tab 04/01/18 01/15/19 promethazine 25 mg PO Q6H PRN #20 tab 04/21/18 01/14/19 meclizine 25 mg PO BID PRN #10 tab 07/02/18 01/14/19 albuterol sulfate 1.25 mg IH QID PRN 10/11/18 01/15/19 etonogestrel 68 mg subdermal 1 implant SBD ONCE 10/11/18 01/14/19 implant fluticasone propionate 44 1 inh IH BID 10/11/18 01/14/19 mcg/actuation HFA aerosol inhaler paroxetine HCl 20 mg tablet 30 mg PO DAILY tab 10/11/18 01/14/19 propranolol 10 mg tablet 10 mg PO BID 10/11/18 01/14/19 quetiapine 25 mg tablet 25 mg PO HS tab 10/11/18 01/14/19 sumatriptan succinate 100 mg tablet 100 mg PO ONCE 10/11/18 01/14/19 paroxetine HCl [Paxil] 50 mg PO DAILY 01/15/19 01/15/19 ketorolac 10 mg PO Q6H PRN 5 Days tab MDD 01/16/19 40 mg Previous Rx's Medication Instructions Recorded cyclobenzaprine 10 mg PO TID PRN #20 tab 04/01/18 promethazine 25 mg PO Q6H PRN #20 tab 04/21/18 meclizine 25 mg PO BID PRN #10 tab 07/02/18 ketorolac 10 mg PO Q6H PRN 5 Days tab MDD 01/16/19 40 mg Allergies Allergy/AdvReac Type Severity Reaction Status Date / Time chocolate flavor Allergy Severe Painful Unverified 01/14/19 20:31 tongue gluten Allergy Severe Gi Upset Unverified 01/14/19 20:31 ondansetron [From Zofran] Allergy Intermediate Other (See Unverified 01/14/19 20:31 Comment) lactase [From Dairy Aid] AdvReac Unverified 01/14/19 20:31 peanut AdvReac Unverified 01/14/19 20:31 pineapple AdvReac Unverified 01/14/19 20:31 Yeast AdvReac Unverified 01/14/19 20:31 Environmental Allergy Intermediate Runny Uncoded 01/14/19 20:31 nose, sneezing cottage cheese AdvReac Uncoded 01/14/19 20:31 wheat AdvReac Uncoded 01/14/19 20:31 General Stated Complaint: Nausea/Vomit/Diar ALL: 4 Review of Systems <Taran Wright NP - Last Filed: 01/17/19 19:00> Constitutional Denies chills, Denies fever(s) and Reports poor appetite Cardiovascular Denies chest pain and Denies dyspnea Respiratory Denies cough and Denies dyspnea Gastrointestinal Reports as per HPI, Reports abdominal pain, Denies melena, Denies change in bowel habits, Denies constipation, Reports diarrhea, Reports nausea and Reports vomiting Genitourinary Denies hematuria, Denies urinary incontinence, Denies urinary hesitancy and Denies urinary urgency Integumentary/Breasts Denies rash PFSH <Taran Wright NP - Last Filed: 01/17/19 19:00> Medical History (Updated 01/15/19 @ 18:50 by Wil Chavez MD) Colitis (Acute) History of ITP (Chronic) Migraine Surgical History (Updated 01/15/19 @ 08:05 by Wil Chavez MD) H/O colonoscopy (Chronic) H/O esophagogastroduodenoscopy (Chronic) Family History Mother Polyp of colon Grandmother Diabetes Polyp of colon aunt Diabetes Polyp of colon uncle Diabetes Polyp of colon Social History Smoking/Tobacco Use Status: Former Tobacco Use Alcohol Intake: never Drug use: Never Substance use type: does not use Do you feel safe at home: Yes Do you feel safe in your relationship?: Yes Exam <Taran Wright NP - Last Filed: 01/17/19 19:00> Const General: cooperative Orientation: alert, awake and oriented x3 Resp Effort & Inspection: normal respiratory effort and able to speak in complete sentences Auscultation: clear to auscultation bilaterally Cardio Rate: regular rate Rhythm: regular rhythm Heart Sounds: S1 normal and S2 normal GI Palpation: soft, no hepatosplenomegaly, not firm, no guarding, no masses, no pulsatile masses, not rigid, no splenomegaly and tender in the epigastrum and in the LLQ; not at McBurney's point and Sanchez's sign negative Auscultation: normal bowel sounds Back/Spine/Pelvis Back: no CVA tenderness Neuro General: alert, awake, oriented x3, gait normal and moves all extremities Course <Taran Wright NP - Last Filed: 01/17/19 19:00> Vital Signs Temperature 37.2 C 01/14/19 20:25 Pulse 121 H 01/14/19 20:25 Respiratory Rate 20 01/14/19 20:25 Blood Pressure 127/79 01/14/19 20:25 Pulse Oximetry 99 01/14/19 20:25 Temperature 37.2 C 01/14/19 20:25 Temperature Source Temporal Artery Scan 01/14/19 20:25 Pulse 121 H 01/14/19 20:25 Respiratory Rate 20 01/14/19 20:25 Respiratory Effort 01/14/19 20:25 Blood Pressure 127/79 01/14/19 20:25 Blood Pressure Position Sitting 01/14/19 20:25 Pulse Oximetry 99 01/14/19 20:25 Oxygen Delivery Method Room Air 01/14/19 20:25 Oxygen Flow Rate 0 01/14/19 20:25 Pain Level 0 01/14/19 23:02 Lab/Test Results Lab/Test Results: Laboratory Tests Range/Units 01/14/19 01/14/19 21:00 21:00 WBC (4.4-10.8) k/cumm 7.05 RBC (4.00-5.20) m/cumm 4.54 Hgb (12.0-15.5) g/dL 13.6 Hct (36.0-46.0) % 40.0 MCV (80-95) fL 88.1 MCH (27.0-33.0) pg 30.0 MCHC (32.0-36.0) g/dL 34.0 RDW (11.7-14.6) % 12.4 Plt Count (130-400) x1000/uL 230 MPV (8.0-11.0) fL 9.0 Immature Gran % 0.1 Neutrophils % 83.9 Lymphocytes % 9.8 Monocytes % 5.5 Eosinophils % 0.4 Basophils % 0.3 Absolute Neutrophils (1.2-6.7) k/cumm 5.91 Absolute Lymphocytes (1.2-3.4) k/cumm 0.69 L Absolute Monocytes (0.11-0.7) k/cumm 0.39 Absolute Eosinophils (0.0-0.7) k/cumm 0.03 Absolute Basophils (0.0-0.2) k/cumm 0.02 Sodium (136-145) mmol/L 138 Potassium (3.5-5.1) mmol/L 3.5 Chloride (98-107) mmol/L 104 Carbon Dioxide (21.0-32.0) mmol/L 23.0 Anion Gap (3-11) mmol/L 11.0 BUN (7-18) mg/dL 4 L Creatinine (0.55-1.02) mg/dL 0.89 Estimated GFR/1.73 m2 (mL/min/1.73m2) >= 60.00 Glucose (70-100) mg/dL 109 H Calcium (8.5-10.1) mg/dL 8.3 L Magnesium (1.8-2.4) mg/dL 1.5 L Total Bilirubin (0.2-1.0) mg/dL 0.3 AST (15-37) U/L 16 ALT (12-78) U/L 21 Alkaline Phosphatase (46-116) U/L 92 Total Protein (6.4-8.2) g/dL 7.1 Albumin (3.4-5.0) g/dL 3.6 Lipase (73-393) U/L 101 Sign Out <Taran Wright NP - Last Filed: 01/17/19 19:00> Sign Out Data: Sign Out Comment: Patient signed out to Dr. Green pending CT imaging results and reassessment along with p.o. challenge if no acute findings are noted. Last updated by Taran Wright NP at 01/14/19 23:56
[2019-01-14] MEDS: Omnipaque 350 MG/ML 100 ML BTL IJ (23:42)
--- NOTE | 2019-01-14 23:46 | DI.CT_ITS ---
SYMPTOM/DIAGNOSIS: ABD PAIN CT ABDOMEN AND PELVIS: CT scan of the abdomen and pelvis was performed following the uneventful administration of intravenous contrast material. Comparison is 02/04/17 The visualized lung bases are clear. The liver is normal in size. No suspicious hepatic mass is seen. The portals, superior mesenteric and splenic veins are patent. The gallbladder is negative. There is o biliary ductal dilatation. The pancreas and peripancreatic soft tissues are unremarkable as are the spleen, adrenal glands, kidneys, ureters and bladder. The reproductive organs are unremarkable. The appendix measures 0.7 cm in diameter. Mild increased attenuation is seen in the periappendiceal fat. This may represent an acute appendicitis. No abscess or free air is seen. No free fluid is seen in the pelvis. The remainder of the bowel is unremarkable. The aorta is of normal caliber. No acute osseous abnormality is identified. IMPRESSION: Appendix measuring 0.7 cm in diameter with question of mild increased attenuation in the surrounding fat. The findings raise the question of acute appendicitis. No abscess or free air.
[2019-01-15] VITALS (19 sets, daily range): BP systolic 79–122; BP diastolic 47–70; PULSE 85–101; RESP 9–24; TEMP 36.2–37.6; O2SAT 90–99
--- NOTE | 2019-01-15 01:03 | DI.VRAD_ITS ---
Addendum created by Raji Rashid MD on 01/15/2019 1:35:58 AM EDT THIS REPORT CONTAINS FINDINGS THAT MAY BE CRITICAL TO PATIENT CARE. The findings were discussed with UMU HDEZ at 1:35 AM EDT on 01/15/2019. The findings were acknowledged and understood. Initial report created on 01/15/2019 1:03:36 AM EDT EXAM: CT Abdomen and Pelvis With Contrast EXAM DATE/TIME: 01/14/2019 10:22 PM CLINICAL HISTORY: 28 years old, female; Abdominal pain; Generalized; Additional info: Nausea/vomiting and fever, history of ibs TECHNIQUE: Imaging protocol: Axial computed tomography images of the abdomen and pelvis with intravenous contrast. Coronal and sagittal reformatted images were created and reviewed. Radiation optimization: All CT scans at this facility use at least one of these dose optimization techniques: automated exposure control; mA and/or kV adjustment per patient size (includes targeted exams where dose is matched to clinical indication); or iterative reconstruction. Contrast material: [id number]; Contrast volume: 100 ml; Contrast route: IV; COMPARISON: CT ABD PELVIS WITH CONTRAST 02/04/2017 10:38 PM FINDINGS: Liver: Normal. No mass. Gallbladder and bile ducts: Normal. No calcified stones. No ductal dilation. Pancreas: Normal. No ductal dilation. Spleen: Normal. No splenomegaly. Adrenals: Normal. No mass. Kidneys and ureters: Normal. No hydronephrosis. Stomach and bowel: Normal. No obstruction. No mucosal thickening. Appendix: The appendix is borderline dilated at 7 mm with trace adjacent stranding, suspicious for acute appendicitis. Intraperitoneal space: Normal. No free air. No significant fluid collection. Vasculature: Normal. No abdominal aortic aneurysm. Lymph nodes: Normal. No enlarged lymph nodes. Bladder: Unremarkable as visualized. Reproductive: Unremarkable as visualized. Bones/joints: No acute fracture. No dislocation. Soft tissues: Unremarkable. IMPRESSION: The appendix is borderline dilated at 7 mm with trace adjacent stranding, suspicious for acute appendicitis. Dictated and Authenticated by: Raji Rashid MD. Ordering:ISIS Chirinos MD
[2019-01-15] MEDS: Normal Saline 1,000 ML 125 ML IV (01:34)
[2019-01-15] MEDS: HYDROmorphone 2 MG/ML VIAL 1 MG IVP ×2 (04:05→17:45)
--- NOTE | 2019-01-15 07:57 | W.PM.HP.N ---
Date of service: 01/15/19 Time of Service: 07:57 Assessment and Plan (1) Acute appendicitis: Current visit: Yes Status: Acute 28 y/o female with signs and symptoms consistent with acute appendicitis on history/exam/CT. Findings reviewed with patient. Recommended to proceed with a laparoscopic appendectomy this morning. Patient received Invanz in the ED for antibiotic coverage. Operative procedure with risks, benefits, and alternatives reviewed. These include but are not limited to risks with anesthesia, bleeding, infection, scarring, conversion to open, drain placement, injury to adjacent structures and organs, and possible additional procedures. We discussed tentative plans for discharge home later today after surgery pending her clinical course. All questions answered. Patient wishes to proceed with surgery. See orders. History of Present Illness Chief Complaint: Abdominal pain Narrative: 28 y/o female seen with her mother at the bedside. Patient notes a history of IBS. She had diarrhea starting 4 days ago which worsened with more cramping and watery diarrhea over the last 2 days. (+) nausea and vomiting. (+) fever up to 100.8 and chills. She denies any dysuria or hematuria. She notes left-sided discomfort typical for her IBS. However, she has also had pain in the epigastrium and mid-abdomen over the past few days. Her pain has now settled with a fullness/ pressure in the right lower quadrant. She was seen in the ED earlier in the day on 01/14/19 and had an abdominal ultrasound which noted hepatic steatosis but no acute findings. She was discharged home but then returned to the ED later in the day on 01/14/19 for worsening symptoms and had a CT abd/pelvis which suggested early appendicitis with an enlarged apppendix and trace amount of periappendiceal fluid. WBC has been within normal limits. Review of Systems Review of Systems All systems reviewed & are unremarkable except as noted in HPI and below Constitutional Reports as per HPI, Reports chills and Reports fever(s) Cardiovascular Denies chest pain, Reports rapid heart rate and Denies dyspnea Respiratory Denies cough and Denies dyspnea Gastrointestinal Reports abdominal pain, Denies melena, Denies hematochezia, Reports diarrhea, Reports nausea and Reports vomiting Genitourinary Denies hematuria and Denies dysuria Musculoskeletal Reports back pain and Reports myalgias [facility] [place] Medical History (Updated 01/15/19 @ 08:19 by Wil Chavez MD) Colitis (Acute) History of ITP (Chronic) Migraine Surgical History (Updated 01/15/19 @ 08:05 by Wil Chavez MD) H/O colonoscopy (Chronic) H/O esophagogastroduodenoscopy (Chronic) Family History Mother Polyp of colon Grandmother Diabetes Polyp of colon aunt Diabetes Polyp of colon uncle Diabetes Polyp of colon Social History Smoking/Tobacco Use Status: Former Tobacco Use Alcohol Intake: never Drug use: Never Substance use type: does not use Do you feel safe at home: Yes Do you feel safe in your relationship?: Yes Meds Home Medications Medication Instructions Recorded Confirmed Type cyclobenzaprine 10 mg PO TID PRN #20 tab 04/01/18 01/15/19 Rx promethazine 25 mg PO Q6H PRN #20 tab 04/21/18 01/14/19 Rx meclizine 25 mg PO BID PRN #10 tab 07/02/18 01/14/19 Rx albuterol sulfate 1.25 mg IH QID PRN 10/11/18 01/15/19 History etonogestrel 68 mg subdermal 1 implant SBD ONCE 10/11/18 01/14/19 History implant fluticasone propionate 44 1 inh IH BID 10/11/18 01/14/19 History mcg/actuation HFA aerosol inhaler paroxetine HCl 20 mg tablet 30 mg PO DAILY tab 10/11/18 01/14/19 History propranolol 10 mg tablet 10 mg PO BID 10/11/18 01/14/19 History quetiapine 25 mg tablet 25 mg PO HS tab 10/11/18 01/14/19 History sumatriptan succinate 100 mg tablet 100 mg PO ONCE 10/11/18 01/14/19 History paroxetine HCl [Paxil] 50 mg PO DAILY 01/15/19 01/15/19 History Allergies Allergy/AdvReac Type Severity Reaction Status Date / Time chocolate flavor Allergy Severe Painful Unverified 01/14/19 20:31 tongue gluten Allergy Severe Gi Upset Unverified 01/14/19 20:31 ondansetron [From Zofran] Allergy Intermediate Other (See Unverified 01/14/19 20:31 Comment) lactase [From Dairy Aid] AdvReac Unverified 01/14/19 20:31 peanut AdvReac Unverified 01/14/19 20:31 pineapple AdvReac Unverified 01/14/19 20:31 Yeast AdvReac Unverified 01/14/19 20:31 Environmental Allergy Intermediate Runny Uncoded 01/14/19 20:31 nose, sneezing cottage cheese AdvReac Uncoded 01/14/19 20:31 wheat AdvReac Uncoded 01/14/19 20:31 Exam Const General: cooperative, comfortable, no acute distress and well developed Nutritional Appearance: well nourished Orientation: alert and oriented x3 HENMT Head: normocephalic and atraumatic Eyes Sclera: sclerae normal Neck Neck: trachea midline, supple and no JVD Resp Effort & Inspection: normal respiratory effort and able to speak in complete sentences Cardio Jugular venous pressure: no JVD Rate: regular rate Rhythm: regular rhythm GI Inspection: non-distended and no scars Palpation: soft, not firm, no guarding, not rigid and tender (mildly tender diffusely) in the RLQ (moderately tender localized to RLQ) Skin General skin exam: no rashes or lesions noted and no jaundice Neuro General: oriented x3 Speech: speech normal Psych Appearance: grossly normal Mental Status: mental status grossly normal Results Imaging Abdomen CT scan report/results: report reviewed and image reviewed CT scan - pelvis: report reviewed and image reviewed Imaging Studies: Patient Name: Nessa DELUNA #: [id number]: ER Ordering Provider: : [facility] ER Primary Care Provider: Jessica Mohamud Date of Exam: 01/15/19Sex: F : 1990Age: 28 Exam(s) Addendum created by Raji Rashid MD on 01/15/2019 1:35:58 AM EDT THIS REPORT CONTAINS FINDINGS THAT MAY BE CRITICAL TO PATIENT CARE. The findings were discussed with UMU HDEZ at 1:35 AM EDT on 01/15/2019. The findings were acknowledged and understood. Initial report created on 01/15/2019 1:03:36 AM EDT EXAM: CT Abdomen and Pelvis With Contrast EXAM DATE/TIME: 01/14/2019 10:22 PM CLINICAL HISTORY: 28 years old, female; Abdominal pain; Generalized; Additional info: Nausea/vomiting and fever, history of ibs TECHNIQUE: Imaging protocol: Axial computed tomography images of the abdomen and pelvis with intravenous contrast. Coronal and sagittal reformatted images were created and reviewed. Radiation optimization: All CT scans at this facility use at least one of these dose optimization techniques: automated exposure control; mA and/or kV adjustment per patient size (includes targeted exams where dose is matched to clinical indication); or iterative reconstruction. Contrast material: [id number]; Contrast volume: 100 ml; Contrast route: IV; COMPARISON: CT ABD PELVIS WITH CONTRAST 02/04/2017 10:38 PM FINDINGS: Liver: Normal. No mass. Gallbladder and bile ducts: Normal. No calcified stones. No ductal dilation. Pancreas: Normal. No ductal dilation. Spleen: Normal. No splenomegaly. Adrenals: Normal. No mass. Kidneys and ureters: Normal. No hydronephrosis. Stomach and bowel: Normal. No obstruction. No mucosal thickening. Appendix: The appendix is borderline dilated at 7 mm with trace adjacent stranding, suspicious for acute appendicitis. Intraperitoneal space: Normal. No free air. No significant fluid collection. Vasculature: Normal. No abdominal aortic aneurysm. Lymph nodes: Normal. No enlarged lymph nodes. Bladder: Unremarkable as visualized. Reproductive: Unremarkable as visualized. Bones/joints: No acute fracture. No dislocation. Soft tissues: Unremarkable. IMPRESSION: The appendix is borderline dilated at 7 mm with trace adjacent stranding, suspicious for acute appendicitis. Dictated and Authenticated by: Raji Rashid MD. Ordering:ISIS Chirinos MD Ordered By: CC: Dictated By: Annie nguyen 01/14/19 2222 01/15/19 0135 Transcribed By: Katelynn Damon This is privileged, confidential information intended only for the provider named. Any use or distribution by any person other than this provider is strictly prohibited. If you receive this report in error, please notify us immediately at [phone] and return the original report to us at the address above. Thank-you. Labs : 01/14/19 21:00 01/14/19 21:00 Laboratory Results - last 24 hr 01/14/19 01/14/19 21:00 21:00 WBC 7.05 RBC 4.54 Hgb 13.6 Hct 40.0 MCV 88.1 MCH 30.0 MCHC 34.0 RDW 12.4 Plt Count 230 MPV 9.0 Immature Gran % 0.1 Neutrophils % 83.9 Lymphocytes % 9.8 Monocytes % 5.5 Eosinophils % 0.4 Basophils % 0.3 Absolute Neutrophils 5.91 Absolute Lymphocytes 0.69 L Absolute Monocytes 0.39 Absolute Eosinophils 0.03 Absolute Basophils 0.02 Sodium 138 Potassium 3.5 Chloride 104 Carbon Dioxide 23.0 Anion Gap 11.0 BUN 4 L Creatinine 0.89 Estimated GFR/1.73 m2 >= 60.00 Glucose 109 H Calcium 8.3 L Magnesium 1.5 L Total Bilirubin 0.3 AST 16 ALT 21 Alkaline Phosphatase 92 Total Protein 7.1 Albumin 3.6 Lipase 101 Last Vital Signs Temp 36.6 C 01/15/19 06:00 Pulse 96 H 01/15/19 06:00 Resp 16 01/15/19 06:00 BP 103/67 01/15/19 06:00 Pulse Ox 98 01/15/19 06:00
[2019-01-15] MEDS: Lactated Ringers 1,000 ML 125 ML IV ×2 (08:30→11:50)
--- NOTE | 2019-01-15 10:31 | APP_PTH ---
PATIENT: Daniela Ruiz LOC: [id number] AGE/SX: 28/F ROOM: [id number] RE01/15/[address]: Wil Chavez : 1990 BED: A DIS: 01/16/2019 SPEC #: [id number] RECD: 01/17/19 10:48 STATUS: SOUGeorgie REQ #: [id number] FRANCO: 01/15/19 10:[address]: Wil Chavez DEPT: Surgical Specimen RECD BY: Kayce Baeza ENTERED: 01/17/19 10:48 SP TYPE: Appendix OTHR DR: Jessica Mohamud Tissues: 1 - APPENDIX NOT INCIDENTAL Procedures: GROSS AND MICRO LEVEL 3 Comments: [id number]
[2019-01-15] MEDS: Bupivacaine 0.25% Pres-Free 30 ML VIAL (10:39)
--- NOTE | 2019-01-15 11:16 | W.PM.OP ---
Date of service: 01/15/19 Time of Service: 11:16 Operative Note DATE OF PROCEDURE: 01/15/19 PRE-OP DIAGNOSIS: Acute appendicitis POST-OP DIAGNOSIS: same PROCEDURE: Laparoscopic appendectomy SURGEON: Wil Chavez AIRCRAFT MAINTENANCE SUPERVISOR: Conchis Randhawa ANESTHESIA: GETA ESTIMATED BLOOD LOSS: 1 PATHOLOGY: other (Appendix) COMPLICATIONS: None Patient was transported to: PACU Patient's condition: stable Indications: 28 y/o female who presented to the ED at [facility] with signs and symptoms consistent with acute appendicitis. Patient presents at this time for a laparoscopic appendectomy. Operative procedure including risks, benefits,and alternatives discussed with patient and informed consent obtained prior to surgery. Findings: Thickened and mildl inflamed appendix with serous periappendiceal fluid consistent with acute appendicitis. Procedure Description: The patient was brought to the operating room and placed on the table in the supine position. SCDs in place on both lower extremities. Patient was intubated and placed under general anesthesia. Patel catheter was placed. Left arm carefully tucked at the side. Anterior abdominal wall was prepped with Chloraprep then draped in the usual sterile fashion. Time out performed per protocol. Patient had received Invanz in the ED for perioperative antibiotic coverage. Initial incision made just below the umbilicus. This was carried down to the fascia which was grasped, elevated, and sharply incised. Peritoneal cavity was then bluntly entered in the midline and swept with a finger. No adhesions noted. Stay sutures of 0-vicryl were placed on either side of the fascial opening. Twyla port was inserted and abdomen insufflated to 15 mm Hg. Remaining ports were placed under direct vision after injection with 0.25% Marcaine including a 5 mm port in the suprapubic region and a second 5 mm port in the LLQ. There was good visualization in the peritoneal cavity. Visualized cecum, right colon, sigmoid colon, and distal small bowel were grossly unremarkable as were the uterus, right tube and ovary, and gallbladder. There were noted to be small dark spots on the peritoneal surface of the pelvic/ right lower abdominal wall suggestive of endometriosis. Patient had not noted any history of endometriosis. Photos were taken and given to patient's family post-procedure. Serous fluid also noted in the pelvis which appeared to be reactive secondary to appendicitis. The appendix was noted to be thickened and mildly inflamed consistent with an early appendicitis. Appendix was noted to be lateral and retrocecal. Base of the appendix was isolated and divided with the 45 mm endoGIA medium-thick (purple) cartridge. A vascular (ku) cartridge was utilized to divide the mesoappendix. The pelvis and right lower quadrant were irrigated with saline and suctioned until the effluent was clear. Staple lines intact with good hemostasis on inspection. No signs of injury noted to adjacent bowel. Cautery was not used intraoperatively. Abdomen was desufflated as ports were removed under direct vision. Fascial suture was tied together in a pursestring fashion to close the midline fascia. Additional 0.25% Marcaine injected at the umbilical site for post-op analgesia. Skin incisions closed with subcuticular 4-0 monocryl and skin adhesive. Patient tolerated surgery well, was awakened from anesthesia, and transferred to recovery in satisfactory condition. Operative findings reviewed with patient's family and patient post-op.
[2019-01-15] MEDS: Albuterol 2.5 MG/3 ML INH SOLN VIAL (12:12)
--- NOTE | 2019-01-15 12:35 | PHARADMIT ---
Admission Pharmacy Clinical Review ACUTE APPY (SURGERY 01/15) Code Status Full Code Current Weight Wgt-87.5 kg Renally Cleared and Narrow Therapeutic Index Meds CrCl~76.4 mL/Min Meds-OK QTc Value / Action Taken QTc-461 (September-2018) BP Control, Fever BP- 79/48 Tmax-37.2C Electrolytes reviewed Na- 138 K+3.5 Mag-1.5 DVT Prophylaxis none Opiate Usage / Scheduled Bowel Regimen Ordered Yes No Plt/SCr for Heparin / Enoxaparin Plts-230 SCr-0.89 INR for Warfarin na H/H stable, WBC/Bands H&H-13.6/40.0 WBC- 7.05 Antibiotic appropriateness Ertepenem Cultures and Sensitivities none Surgical ABX d/c within 24 hr na DM control / Insulin Dosing BG-109 Heart Failure (Check EF%) (FLOYD's, B-Block, Diuretics) Propranolol IV to PO Switch No Home Meds Reviewed Yes Home Meds Not Ordered Flexeril, Diazepam, Meclizine, Nexplanon, Flovent, Paxil, Seroquel, Sumatriptan Comments
[2019-01-15] MEDS: Acetaminophen 325 MG TAB 650 MG PO ×2 (13:38→23:50)
[2019-01-15] MEDS: Lactated Ringers 1,000 ML 75 ML IV (15:42)
--- NOTE | 2019-01-15 16:12 | PDOC.CMIN ---
Care Management Initial Assess REASON FOR HOSPITALIZATION:: Acute Appendicitis PAST MEDICAL HISTORY/PAST SURGICAL HISTORY:: Medical: Colitis (Acute), History of ITP (Chronic), Migraine. Surgical: H/O colonoscopy (Chronic), H/O esophagogastroduodenoscopy (Chronic) PREVIOUS FUNCTIONAL STATUS/SOCIAL/FAMILY SUPPORTS:: Independent at baseline CURRENT FUNCTIONAL STATUS:: Just returned from the OR. Very sleepy and unable to have a conversation at this time. ADVANCE DIRECTIVES:: None on file Has patient been provided with information about the portal?: No Did the patient sign up for the portal?: No CODE STATUS:: Full Code INSURANCE COVERAGE / FINANCIAL ISSUES:: BC/BS CURRENT HOME/COMMUNITY SERVICES/EQUIPMENT:: None at this time PRIMARY CARE PHYSICIAN:: Jessica Mohamud POTENTIAL DISCHARGE NEEDS:: Limitations and follow up appointment with surgeon PATIENT/FAMILY EDUCATION NEEDS:: Discharge instructions ANTICIPATED BARRIERS TO DISCHARGE:: None identified TRANSPORTATION:: Family PLAN:: Return home when medically cleared for discharge. No services needed. Family will transporrt.
--- NOTE | 2019-01-15 18:47 | W.PM.PROGNOT ---
Date of Service Date of service: 01/15/19 Time of Service: 18:47 Assessment and Plan (1) Acute appendicitis: Current visit: Yes Status: Acute POD # 0 s/p lap appy this am. Will hold discharge til am. Encouraged OOB/diet as tolerated. Encouraged non-narcotic pain meds as tolerated. Heat pack to abdominal wall prn pain. Reviewed operative findings with patient. Findings suggestive of endometriosis. Patient denies pelvic pain but does not have periods on Nexplanon. She has a PCP but does not see a HYDROGENATION STILL OPERATOR regularly. Copy of surgical photos had been given to the patient's Mom post-operatively. Follow-up with PCP re: possible referral to HYDROGENATION STILL OPERATOR as outpatient. Findings of early acute appendicitis also reviewed. Re-eval for discharge in am. Qualifiers: Acute appendicitis type: with localized peritonitis Appendicitis gangrene presence: without gangrene Appendicitis perforation presence: without perforation Appendicitis abscess presence: without abscess Qualified Code(s): K35.30 - Acute appendicitis with localized peritonitis, without perforation or gangrene Subjective Interval history since last seen: Tolerated small amounts of po diet. Just medicated for pain with Dilaudid and notes nausea attributed to Dilaudid. Up to bathroom and voided without problems earlier. Exam Const General: cooperative and well developed Nutritional Appearance: well nourished Orientation: alert and oriented x3 Resp Effort & Inspection: normal respiratory effort and able to speak in complete sentences GI Inspection: incision (surgical sites x 3 - dry/clean/intact) Palpation: soft, not firm, no guarding, not rigid and nontender Skin General skin exam: no rashes or lesions noted and no jaundice Objective Objective Clinical Data: Abnormal lab results 01/14/19 01/14/19 Range/Units 21:00 21:00 Absolute Lymphocytes 0.69 L (1.2-3.4) k/cumm BUN 4 L (7-18) mg/dL Glucose 109 H (70-100) mg/dL Calcium 8.3 L (8.5-10.1) mg/dL Magnesium 1.5 L (1.8-2.4) mg/dL Vital Signs Temperature 37.0 C 01/15/19 15:31 Temperature Source Tympanic 01/15/19 15:31 Pulse 89 01/15/19 15:31 Pulse Rhythm Regular 01/15/19 08:30 Respiratory Rate 18 01/15/19 15:31 Respiratory Effort 01/15/19 08:30 Respiratory Depth Normal 01/15/19 08:30 Respiratory Pattern Normal 01/15/19 08:30 Blood Pressure 122/70 01/15/19 15:31 Blood Pressure Position Sitting 01/14/19 20:25 Pulse Oximetry 94 L 01/15/19 15:31 Respiratory End-tidal CO2 36 01/15/19 12:21 Oxygen Delivery Method Room Air 01/15/19 15:31 Oxygen Flow Rate 0 01/15/19 15:31 Pain Level 4 01/15/19 17:45 Comment 01/15/19 14:25 Intake & Output 01/14/19 01/15/19 01/15/19 23:59 11:59 23:59 Intake Total 1051 / 1051 1880.500 / 2851.333 970.833 / 2851.333 Output Total 50 / 550 500 / 550 Balance 1051 / 1051 1830.500 / 2301.333 470.833 / 2301.333 Weight 86.183 kg 87.5 kg 87.5 kg Intake: IV 1051 / 1051 1850.500 / 2771.333 920.833 / 2771.333 Oral 30 / 80 50 / 80 Output: Urine 50 / 550 500 / 550 Other: Urine Color Yellow Yellow Urine Appearance Clear Clear Urine Odor None Stool Size Moderate Stool Characteristics Liquid Emesis Description Bile None None Voiding Methods Toilet Toilet Laboratory Results WBC 7.05 k/cumm (4.4-10.8) 01/14/19 21:00 RBC 4.54 m/cumm (4.00-5.20) 01/14/19 21:00 Hgb 13.6 g/dL (12.0-15.5) 01/14/19 21:00 Hct 40.0 % (36.0-46.0) 01/14/19 21:00 MCV 88.1 fL (80-95) 01/14/19 21:00 MCH 30.0 pg (27.0-33.0) 01/14/19 21:00 MCHC 34.0 g/dL (32.0-36.0) 01/14/19 21:00 RDW 12.4 % (11.7-14.6) 01/14/19 21:00 Plt Count 230 x1000/uL (130-400) 01/14/19 21:00 MPV 9.0 fL (8.0-11.0) 01/14/19 21:00 Immature Gran % 0.1 01/14/19 21:00 83.9 01/14/19 21:00 9.8 01/14/19 21:00 5.5 01/14/19 21:00 0.4 01/14/19 21:00 0.3 01/14/19 21:00 Absolute Neutrophils 5.91 k/cumm (1.2-6.7) 01/14/19 21:00 Absolute Lymphocytes 0.69 k/cumm (1.2-3.4) L 01/14/19 21:00 Absolute Monocytes 0.39 k/cumm (0.11-0.7) 01/14/19 21:00 Absolute Eosinophils 0.03 k/cumm (0.0-0.7) 01/14/19 21:00 Absolute Basophils 0.02 k/cumm (0.0-0.2) 01/14/19 21:00 Sodium 138 mmol/L (136-145) 01/14/19 21:00 Potassium 3.5 mmol/L (3.5-5.1) 01/14/19 21:00 Chloride 104 mmol/L (98-107) 01/14/19 21:00 Carbon Dioxide 23.0 mmol/L (21.0-32.0) 01/14/19 21:00 11.0 mmol/L (3-11) 01/14/19 21:00 BUN 4 mg/dL (7-18) L 01/14/19 21:00 0.89 mg/dL (0.55-1.02) 01/14/19 21:00 >= 60.00 (mL/min/1.73m2) 01/14/19 21:00 Glucose 109 mg/dL (70-100) H 01/14/19 21:00 Calcium 8.3 mg/dL (8.5-10.1) L 01/14/19 21:00 Magnesium 1.5 mg/dL (1.8-2.4) L 01/14/19 21:00 0.3 mg/dL (0.2-1.0) 01/14/19 21:00 AST 16 U/L (15-37) 01/14/19 21:00 ALT 21 U/L (12-78) 01/14/19 21:00 92 U/L (46-116) 01/14/19 21:00 7.1 g/dL (6.4-8.2) 01/14/19 21:00 3.6 g/dL (3.4-5.0) 01/14/19 21:00 101 U/L (73-393) 01/14/19 21:00
[2019-01-15] MEDS: Propranolol 10 MG TAB PO (20:24)
[2019-01-15] MEDS: Ketorolac 30 MG/ML VIAL IVP (20:27)
[2019-01-15] MEDS: Normal Saline Flush 10 ML SYR IVP (20:28)
[2019-01-16] MEDS: Ketorolac 30 MG/ML VIAL IVP (02:18)
[2019-01-16] MEDS: Normal Saline Flush 10 ML SYR IVP ×2 (02:19→07:58)
[2019-01-16 04:40] VITALS: BP 124/71; PULSE 85; RESP 18; TEMP 36.5; O2SAT 98
[2019-01-16] MEDS: Lactated Ringers 1,000 ML 75 ML IV (05:18)
[2019-01-16] MEDS: Ibuprofen 400 MG TAB PO (06:53)
[2019-01-16] MEDS: Acetaminophen 325 MG TAB 650 MG PO (06:54)
[2019-01-16 07:45] VITALS: BP 106/64; PULSE 85; RESP 16; TEMP 37.2; O2SAT 99
[2019-01-16] MEDS: HYDROmorphone 2 MG/ML VIAL 0.5 MG IVP (07:58)
[2019-01-16] MEDS: Propranolol 10 MG TAB PO (07:59)
--- NOTE | 2019-01-16 09:53 | W.PM.DS.N ---
Date of service: 01/16/19 Time of Service: 09:57 DS: Diagnosis Discharge Diagnosis (1) Acute appendicitis: Status: Acute Discharge Plan Disposition Patient Disposition: HOME Condition: Stable Discharge Details Chief Complaint: Nausea/Vomit/Diar Clinical Impression: Acute appendicitis Reason For Visit: ACUTE APPE Admit Date/Time: 01/15/19 01:12 Admit Provider: Wil Chavez Attending Provider: Wil Chavez Primary Care Provider: Jessica Mohamud ED Provider: Shiv Green Hospital Course Hospital Course: 28 y/o female who presented to the ED on 01/15/19 with findings consistent with acute appendicitis. CT abd/pelvis showed a dilated appendix with scant periappendiceal fluid consistent with an early appendicitis. She underwent an uneventful laparoscopic appendectomy on 01/15/19. Findings noted consistent with possible endometriosis in addition to the early acute appendicitis. Reviewed with patient. She is currently asymptomatic on control. Photos from surgery provided. Patient to follow-up with PCP. Postoperatively she had some nausea and vomiting associated with Dilaudid. She denies any nausea or vomiting this am, has voided, had a bowel movement, and is tolerating a regular diet. She notes some soreness at her umbilical incision site. Pain controlled with Toradol. 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 Homegoing instructions/restrictions discussed. Home Meds and New Rx's Prescriptions: New ketorolac 10 mg tablet 10 mg PO Q6H MDD 40 mg PRN (Reason: pain) 5 Days RF: 0 Continued Nexplanon 68 mg implant 1 implant SBD ONCE RF: 0 albuterol sulfate 2.5 mg /3 mL (0.083 %) solution for nebulization 1.25 mg IH QID PRNRF: 0 Flovent HFA 44 mcg/actuation HFA aerosol inhaler 1 inh IH BID RF: 0 sumatriptan succinate 100 mg tablet 100 mg PO ONCE RF: 0 propranolol 10 mg tablet 10 mg PO BID RF: 0 quetiapine [Seroquel] 25 mg tablet 25 mg PO HS RF: 0 paroxetine HCl [Paxil] 20 mg tablet 30 mg PO DAILY RF: 0 cyclobenzaprine 10 mg tablet 10 mg PO TID PRN (Reason: pain) Qty: 20 RF: 0 meclizine 25 mg tablet 25 mg PO BID PRN (Reason: vertigo) Qty: 10 RF: 0 paroxetine HCl [Paxil] 40 mg Tablet 50 mg PO DAILY RF: 0 promethazine 25 mg tablet 25 mg PO Q6H PRN (Reason: nausea and vomiting) Qty: 20 RF: 0 Discharge Instructions Instructions: Laparoscopic Appendectomy (DC) Additional Instructions: No lifting > 20 pounds x 2 weeks. May shower, climb stairs, ambulate as tolerated. Avoid strenuous exercise x 2 weeks. OK to stretch/ walk. Referrals: Jessica Mohamud [Primary Care Provider] - (1-2 weeks. Follow-up possible endometriosis on laparoscopy.) Gwen Harrison MD [ [facility] STAFF PHYSICIAN] - (2 weeks. Post-op follow-up s/p laparoscopic appendectomy.) Activity:: See instructions. Equipment/Supplies:: No Equipment Needed Diet:: As Tolerated Discharge Orders Discharge Orders: Discharge Order (Routine); Ordered 01/16/19 Ordered By: Wil Chavez Exam Const General: cooperative, comfortable, no acute distress and well developed Nutritional Appearance: well nourished Orientation: alert and oriented x3 HENMT Head: normocephalic and atraumatic Resp Effort & Inspection: normal respiratory effort and able to speak in complete sentences GI Inspection: non-distended and incision (surgical sites x 3 - dry/clean/intact) Palpation: soft, not firm, no guarding and not rigid Skin General skin exam: no rashes or lesions noted and no jaundice Neuro Speech: speech normal DS: Data Vitals/I&O Vitals and I&O: Vital Signs Temperature 37.2 C 01/16/19 07:45 Temperature Source Tympanic 01/16/19 07:45 Pulse 85 01/16/19 07:45 Pulse Rhythm Regular 01/16/19 08:16 Respiratory Rate 16 01/16/19 07:45 Respiratory Effort Non-Labored 01/16/19 08:16 Respiratory Depth Normal 01/16/19 08:16 Respiratory Pattern Normal 01/16/19 08:16 Blood Pressure 106/64 01/16/19 07:45 Blood Pressure Position Sitting 01/14/19 20:25 Pulse Oximetry 99 01/16/19 07:45 Respiratory End-tidal CO2 36 01/15/19 12:21 Oxygen Delivery Method Room Air 01/16/19 07:45 Oxygen Flow Rate 0 01/16/19 07:45 Pain Level 6 01/16/19 07:58 Comment 01/15/19 14:25 Intake & Output 01/15/19 01/15/19 01/16/19 11:59 23:59 11:59 Intake Total 1880.500 / 3322.666 1442.166 / 3322.666 1000 / 1000 Output Total 50 / 2700 2650 / 2700 800 / 800 Balance 1830.500 / 622.666 -1207.834 / 622.666 200 / 200 Weight 87.5 kg 87.5 kg Intake: IV 1850.500 / 3242.666 1392.166 / 3242.666 1000 / 1000 Oral 30 / 80 50 / 80 Output: Urine 50 / 2100 0 / 2100 800 / 800 Emesis 600 / 600 Other: Urine Color Yellow Yellow Yellow Urine Appearance Clear Clear Clear Urine Odor None None Comment Void on toilet an unmeasured amount at this time. Stool Size Small Moderate Stool Characteristics Liquid Liquid Brown Brown Emesis Description None Retching Undigested Food Voiding Methods Toilet Toilet Toilet [facility] Medical History (Updated 01/15/19 @ 18:50 by Wil Chavez MD) Colitis (Acute) History of ITP (Chronic) Migraine Surgical History (Updated 01/15/19 @ 08:05 by Wil Chavez MD) H/O colonoscopy (Chronic) H/O esophagogastroduodenoscopy (Chronic) Family History Mother Polyp of colon Grandmother Diabetes Polyp of colon aunt Diabetes Polyp of colon uncle Diabetes Polyp of colon Social History Smoking/Tobacco Use Status: Former Tobacco Use Alcohol Intake: never Drug use: Never Substance use type: does not use Do you feel safe at home: Yes Do you feel safe in your relationship?: Yes
--- NOTE | 2019-01-16 15:11 | PDOC.CMDIS ---
LACE Index Scoring Tool - Questions: Length of Stay (in days): 1 Acuity (Admit via E.D.?): Yes E.D. Visits: 1 - Answers: Total Score: 5 Risk of Readmission: Low Risk Care Management Discharge Reason for Hospitalization: Acute Appendicitis Discharge Plan: Daniela will return home withher and two sons. No services needed. Family will transport by ar. Patient/Family Education Needs: Discharge instructions and follow up appointments
== END 2019-01-16 11:57 | disposition home or self-care (01) | DRG 343 ==
LOC: ER 01-15 01:21 → MS 01-15 01:53
PROVIDERS: Nurse Practitioner Family; Admitting Provider Surgery; Emergency Provider Student in an Organized Health Care Education/Training Program; PCP Nurse Practitioner Family; Visit Provider Surgery
PROC: 0DTJ4ZZ Resection of Appendix, Percutaneous Endoscopic Approach (ICD-10-PCS; CPT 44970; principal; 2019-01-15 08:35)
DX: K35.30 Acute appendicitis with localized peritonitis, without perforation or gangrene (principal); N80.3 Endometriosis of pelvic peritoneum
CPT/HCPCS: 44970; 36415; 80053; 83690; 96361; 96365; 96375; 99222; 99238; 99285; NC; 74177; 83735; 85025; 88304; 99284; J1335; J1885; J2250; J3490; J7613

== ENCOUNTER 2019-01-18 11:23 | Emergency (ER) | payer BC, SELFPAY ==
[2019-01-18 11:26] VITALS: BP 121/76; PULSE 99; RESP 20; TEMP 36.6; O2SAT 98
--- NOTE | 2019-01-18 11:36 | NUR.NOTE ---
pt as per triage pending md leon Nursing Note:
--- NOTE | 2019-01-18 11:46 | ED.GENADUL_ITS ---
Discharge Plan Disposition Patient Disposition: HOME Condition: Improving Discharge Details Chief Complaint: Abd Prob Clinical Impression: Post-operative pain, Status post appendectomy Primary Care Provider: Jessica Mohamud ED Provider: Yamilet Mathias Home Meds and New Rx's Prescriptions: Continued Nexplanon 68 mg implant 1 implant SBD ONCE RF: 0 albuterol sulfate 2.5 mg /3 mL (0.083 %) solution for nebulization 1.25 mg IH QID PRNRF: 0 Flovent HFA 44 mcg/actuation HFA aerosol inhaler 1 inh IH BID RF: 0 sumatriptan succinate 100 mg tablet 100 mg PO ONCE RF: 0 propranolol 10 mg tablet 10 mg PO BID RF: 0 quetiapine [Seroquel] 25 mg tablet 25 mg PO HS RF: 0 paroxetine HCl [Paxil] 20 mg tablet 30 mg PO DAILY RF: 0 cyclobenzaprine 10 mg tablet 10 mg PO TID PRN (Reason: pain) Qty: 20 RF: 0 meclizine 25 mg tablet 25 mg PO BID PRN (Reason: vertigo) Qty: 10 RF: 0 paroxetine HCl [Paxil] 40 mg Tablet 50 mg PO DAILY RF: 0 ketorolac 10 mg tablet 10 mg PO Q6H MDD 40 mg PRN (Reason: pain) 5 Days RF: 0 promethazine 25 mg tablet 25 mg PO Q6H PRN (Reason: nausea and vomiting) Qty: 20 RF: 0 Discharge Instructions Instructions: Abdominal Pain (ED) Additional Instructions: Take your ketorolac that you have at home as needed for pain and your Phenergan as needed and directed for nausea and vomiting Follow-up with your scheduled appointment with your primary care doctor on and with surgery as directed. Return to the emergency department if you develop any worsening or new concerning symptoms of fever or worsening pain. Discharge Data Discharge Date/Time-TO BE ENTERED AT DEPARTURE: 01/18/19 14:45 Discharge Physician: Yamilet Mathias Medical Decision Making 28-year-old female who is 3 days status post appendectomy presents with persistent abdominal pain, nausea and hot and cold chills. Vitals within normal limits. Afebrile. Patient appears nontoxic. She does appear uncomfortable. Her abdomen is soft and diffusely tender, worse in the left mid and lower quadrants and suprapubic region. Differential diagnosis includes postoperative pain, seroma, abscess or other acute abdominal process. Will place an IV, bolus IV fluids, labs, urinalysis and refer for CT abdomen and pelvis. Labs and imaging reviewed and unremarkable. Normal white blood cell count. Potassium 3.3, repleted. Lipase within normal limits. Urinalysis noted 10-20 WBCs but appeared contaminated. CT abdomen pelvis negative for acute findings. Patient feels better on reassessment. Abdomen soft and no rigidity or guarding. Case discussed with surgery and recommended patient continue her ketorolac and Phenergan that she has at home in addition to Tylenol and heating pad. She is instructed to follow-up with her scheduled appointment with her primary care doctor in 2 days and with surgery as directed. She is advised to return here immediately with any worsening or new concerning symptoms. Medical Records Medical records reviewed: Yes I reviewed the patient's medical records. Imaging Data Radiologic Study: Radiologist's impression: CT SCAN OF THE ABDOMEN AND PELVIS: CT scan of the abdomen and pelvis was performed following the uneventful administration of intravenous contrast material. Comparison examination is 01/14/19. The lung bases appear clear. The liver, gallbladder, bile ducts, pancreas, spleen, adrenal glands, kidneys, ureters and bladder are unremarkable, as are the reproductive organs. The portal, superior mesenteric and splenic veins are patent. The aorta is of normal caliber. No significant abdominal or pelvic adenopathy, ascites or pneumoperitoneum is seen. The patient is now status post appendectomy. No focal fluid collection is seen in the pelvis or abdomen to suggest abscess. IMPRESSION: Status post appendectomy. No evidence of an acute abdomen or pelvic process. Lab Data Lab results reviewed: Yes I reviewed the patient's lab results. Laboratory Tests Range/Units 01/18/19 01/18/19 01/18/19 12:00 12:00 12:10 WBC (4.4-10.8) k/cumm 6.76 RBC (4.00-5.20) m/cumm 4.38 Hgb (12.0-15.5) g/dL 13.1 Hct (36.0-46.0) % 38.3 MCV (80-95) fL 87.4 MCH (27.0-33.0) pg 29.9 MCHC (32.0-36.0) g/dL 34.2 RDW (11.7-14.6) % 12.3 Plt Count (130-400) x1000/uL 238 MPV (8.0-11.0) fL 8.9 Immature Gran % 0.3 Neutrophils % 67.2 Lymphocytes % 17.2 Monocytes % 9.2 Eosinophils % 5.5 Basophils % 0.6 Absolute Neutrophils (1.2-6.7) k/cumm 4.55 Absolute Lymphocytes (1.2-3.4) k/cumm 1.16 L Absolute Monocytes (0.11-0.7) k/cumm 0.62 Absolute Eosinophils (0.0-0.7) k/cumm 0.37 Absolute Basophils (0.0-0.2) k/cumm 0.04 Sodium (136-145) mmol/L 140 Potassium (3.5-5.1) mmol/L 3.3 L Chloride (98-107) mmol/L 104 Carbon Dioxide (21.0-32.0) mmol/L 28.4 Anion Gap (3-11) mmol/L 7.6 BUN (7-18) mg/dL 7 Creatinine (0.55-1.02) mg/dL 0.88 Estimated GFR/1.73 m2 (mL/min/1.73m2) >= 60.00 Glucose (70-100) mg/dL 97 Calcium (8.5-10.1) mg/dL 8.4 L Total Bilirubin (0.2-1.0) mg/dL 0.3 AST (15-37) U/L 22 ALT (12-78) U/L 25 Alkaline Phosphatase (46-116) U/L 76 Total Protein (6.4-8.2) g/dL 6.8 Albumin (3.4-5.0) g/dL 3.2 L Lipase (73-393) U/L 116 Urine Color (Yellow) Yellow Urine Clarity (Clear) Clear Urine pH (5-8) 7.0 Ur Specific [place] (1.005-1.025) 1.015 Urine Protein (Negative) mg/dL Negative Urine Ketones (Negative) mg/dL Negative Urine Blood (Negative) Negative Urine Nitrite (Negative) Negative Urine Bilirubin (Negative) Negative Urine Urobilinogen (Up TO 0.2) EU/dL 0.2 Ur Leukocyte Esterase (Negative) Small H Urine RBC (0-2) Negative Urine WBC (0-5) HPF 10-20 Ur Epithelial Cells (Negative) HPF Moderate Urine Crystals (Negative) HPF Negative Urine Bacteria (Negative) HPF Few Urine Casts (Negative) LPF Negative Urine Mucus (Negative) Negative Urine Other (Negative) Few renal Ur Culture Indicated? No/sq. contamination Urine Glucose (Negative) mg/dL Negative HPI General Mode of arrival: ambulatory . Date/Time Provider Initiated Documentation: 01/18/19 11:23 . Limitations to Documentation: no limitations . Information obtained by: patient . HPI Narrative: Pt is a 28yo F who is 2 days s/p appendectomy who presents to the ED w/ a c/o persistent diffuse abdominal pain since her surgery, that is worse on the left side and sharp without relief with Toradol given here upon discharge. She admits to nausea but denies any vomiting. She last ate this morning. She states her last bowel movement was today with liquid yellow stool but denies any bleeding. She denies any fever, chest pain, shortness of breath. She states her pain is currently 5/10. Related Data Home Medications Medication Instructions Recorded Confirmed cyclobenzaprine 10 mg PO TID PRN #20 tab 04/01/18 01/15/19 promethazine 25 mg PO Q6H PRN #20 tab 04/21/18 01/14/19 meclizine 25 mg PO BID PRN #10 tab 07/02/18 01/14/19 albuterol sulfate 1.25 mg IH QID PRN 10/11/18 01/15/19 etonogestrel 68 mg subdermal 1 implant SBD ONCE 10/11/18 01/14/19 implant fluticasone propionate 44 1 inh IH BID 10/11/18 01/14/19 mcg/actuation HFA aerosol inhaler paroxetine HCl 20 mg tablet 30 mg PO DAILY tab 10/11/18 01/14/19 propranolol 10 mg tablet 10 mg PO BID 10/11/18 01/14/19 quetiapine 25 mg tablet 25 mg PO HS tab 10/11/18 01/14/19 sumatriptan succinate 100 mg tablet 100 mg PO ONCE 10/11/18 01/14/19 paroxetine HCl [Paxil] 50 mg PO DAILY 01/15/19 01/15/19 ketorolac 10 mg PO Q6H PRN 5 Days tab MDD 01/16/19 40 mg Previous Rx's Medication Instructions Recorded cyclobenzaprine 10 mg PO TID PRN #20 tab 04/01/18 promethazine 25 mg PO Q6H PRN #20 tab 04/21/18 meclizine 25 mg PO BID PRN #10 tab 07/02/18 ketorolac 10 mg PO Q6H PRN 5 Days tab MDD 01/16/19 40 mg Allergies Allergy/AdvReac Type Severity Reaction Status Date / Time chocolate flavor Allergy Severe Painful Unverified 01/14/19 20:31 tongue gluten Allergy Severe Gi Upset Unverified 01/14/19 20:31 ondansetron [From Zofran] Allergy Intermediate Other (See Unverified 01/14/19 20:31 Comment) lactase [From Dairy Aid] AdvReac Unverified 01/14/19 20:31 peanut AdvReac Unverified 01/14/19 20:31 pineapple AdvReac Unverified 01/14/19 20:31 Yeast AdvReac Unverified 01/14/19 20:31 Environmental Allergy Intermediate Runny Uncoded 01/14/19 20:31 nose, sneezing cottage cheese AdvReac Uncoded 01/14/19 20:31 wheat AdvReac Uncoded 01/14/19 20:31 General Stated Complaint: Abd Prob ALL: 3 Review of Systems Review of Systems All systems reviewed & are unremarkable except as noted in HPI and below Constitutional Reports as per HPI, Denies chills and Denies fever(s) Eyes Denies blurry vision ENT Denies dizziness, Denies sore throat and Denies throat swelling Cardiovascular Denies chest pain and Denies dyspnea Respiratory Denies cough and Denies dyspnea Gastrointestinal Reports abdominal pain, Denies diarrhea, Reports nausea and Denies vomiting Genitourinary Denies hematuria and Denies dysuria Musculoskeletal Denies back pain and Denies numbness Integumentary/Breasts Denies lesions and Denies rash Neurologic Denies dizziness, Denies focal weakness and Denies numbness Allergic/Immunologic Denies throat swelling PFSH Medical History Colitis (Acute) History of IBS (Acute) History of ITP (Chronic) Migraine Surgical History H/O colonoscopy (Chronic) H/O esophagogastroduodenoscopy (Chronic) History of appendectomy (Chronic) Family History Mother Polyp of colon Grandmother Diabetes Polyp of colon aunt Diabetes Polyp of colon uncle Diabetes Polyp of colon Social History Smoking/Tobacco Use Status: Former Tobacco Use Alcohol Intake: never Drug use: Never Substance use type: does not use Do you feel safe at home: Yes Do you feel safe in your relationship?: Yes Exam Const General: cooperative, healthy appearing and no acute distress HENMT Head: normal to inspection Face and sinus: normal facial exam Eyes General: appearance normal, both eyes and all related structures EOM: EOM intact bilaterally Neck Neck: normal visual inspection and No submandibular swelling Lymphatic: no lymphadenopathy noted Chest Chest: normal inspection of the chest and no tenderness Resp Effort & Inspection: normal respiratory effort and able to speak in complete sentences Auscultation: clear to auscultation bilaterally Cardio Rate: regular rate Rhythm: regular rhythm GI Inspection: normal to inspection and abdominal wall ecchymosis (minimal, at periumbilical and LLQ incisions) Palpation: soft, not firm, no guarding, not rigid and tender (diffusely tender, worse on L side) Auscultation: normal bowel sounds Other: periumbilical and LLQ incision intact, no bleeding or drainage, no fluctuance or induration Skin General skin exam: no rashes or lesions noted Neuro General: alert, awake and oriented x3 Cognition: normal cognition Speech: speech normal Motor: muscle tone normal throughout Sensory Exam: no sensory deficits noted Extrem General: normal to inspection, full ROM, normal capillary refill, no calf tenderness bilaterally and no edema Psych Appearance: grossly normal Mental Status: mental status grossly normal Speech and Movement: speech and movement normal Affect: normal affect Course Vital Signs Temperature 97.8 F 01/18/19 11:26 Pulse 99 H 01/18/19 11:26 Respiratory Rate 20 01/18/19 11:26 Blood Pressure 121/76 01/18/19 11:26 Pulse Oximetry 98 01/18/19 11:26 Temperature 97.8 F 01/18/19 11:26 Temperature Source Temporal Artery Scan 01/18/19 11:26 Pulse 99 H 01/18/19 11:26 Respiratory Rate 20 01/18/19 11:26 Respiratory Effort Non-Labored 01/18/19 11:35 Blood Pressure 121/76 01/18/19 11:26 Pulse Oximetry 98 01/18/19 11:26 Oxygen Delivery Method Room Air 01/18/19 11:26 Oxygen Flow Rate 0 01/18/19 11:26 Pain Level 8 01/18/19 11:35
--- NOTE | 2019-01-18 11:46 | DI.CT_ITS ---
SYMPTOMS/DIAGNOSIS: DIFFUSE ABDOMINAL PAIN S/P APPENDECTOMY, ? ACUTE ABSCESS/SEROMA/ACUTE ABDOMINAL PROCESS CT SCAN OF THE ABDOMEN AND PELVIS: CT scan of the abdomen and pelvis was performed following the uneventful administration of intravenous contrast material. Comparison examination is 01/14/19. The lung bases appear clear. The liver, gallbladder, bile ducts, pancreas, spleen, adrenal glands, kidneys, ureters and bladder are unremarkable, as are the reproductive organs. The portal, superior mesenteric and splenic veins are patent. The aorta is of normal caliber. No significant abdominal or pelvic adenopathy, ascites or pneumoperitoneum is seen. The patient is now status post appendectomy. No focal fluid collection is seen in the pelvis or abdomen to suggest abscess. IMPRESSION: Status post appendectomy. No evidence of an acute abdomen or pelvic process. The findings were discussed with Dr. Mathias of the Emergency Department on the date of the examination.
--- NOTE | 2019-01-18 12:02 | NUR.NOTE ---
labs drawn Nursing Note:
[2019-01-18 12:08] LABS: Abs Immature Grans 0.02 k/cumm (0.0-0.09); Absolute Basophil Count 0.04 k/cumm (0.0-0.2); Absolute Eosinophil Count 0.37 k/cumm (0.0-0.7); Absolute Lymphocyte Count 1.16 k/cumm (1.2-3.4); Absolute Monocyte Count 0.62 k/cumm (0.11-0.7); Absolute Neutrophil Count 4.55 k/cumm (1.2-6.7); Basophils % 0.6; Eosinophils % 5.5; HCT 38.3 % (36.0-46.0); HGB 13.1 g/dL (12.0-15.5); Immature Grans % 0.3; Lymphocytes % 17.2; Mean Corp. HGB Concentration 34.2 g/dL (32.0-36.0); Mean Corpuscular Hemoglobin 29.9 pg (27.0-33.0); Mean Corpuscular Volume 87.4 fL (80-95); Mean Platelet Volume 8.9 fL (8.0-11.0); Monocytes % 9.2; Neutrophils % 67.2; Platelet Count 238 x1000/uL (130-400); RBC 4.38 m/cumm (4.00-5.20); RBC Distribution Width 12.3 % (11.7-14.6); White Blood Cell Count 6.76 k/cumm (4.4-10.8)
[2019-01-18 12:17] LABS: Bilirubin Negative (Negative); Blood Negative (Negative); Clarity Clear (Clear); Glucose Negative (Negative); Ketones Negative (Negative); Leukocyte Esterase Small (Negative); Nitrite Negative (Negative); Specific Gravity 1.015 (1.005-1.025); Urobilinogen 0.2 EU/dL (Up TO 0.2)
[2019-01-18 12:27] LABS: Bacteria Few HPF (Negative); C & S Indicated? No/Sq. Contamination; Casts Negative LPF (Negative); Crystals Negative HPF (Negative); Epithelial Cells Moderate HPF (Negative); Mucus Negative (Negative); Other Cells Few Renal (Negative); RBC Negative (0-2)
[2019-01-18 12:28] LABS: ALT 25 U/L (12-78); AST 22 U/L (15-37); Albumin 3.2 g/dL (3.4-5.0); Alkaline Phosphatase 76 U/L (46-116); Anion Gap 7.6 mmol/L (3-11); BUN 7 mg/dL (7-18); Bilirubin, Total 0.3 mg/dL (0.2-1.0); CO2 28.4 mmol/L (21.0-32.0); CREATININE 0.88 mg/dL (0.55-1.02); Calcium 8.4 mg/dL (8.5-10.1); Chloride 104 mmol/L (98-107); Glucose 97 mg/dL (70-100); Lipase 116 U/L (73-393); Potassium 3.3 mmol/L (3.5-5.1); Sodium 140 mmol/L (136-145); Total Protein 6.8 g/dL (6.4-8.2)
[2019-01-18] MEDS: Normal Saline 1,000 ML 1000 ML IV (12:33)
[2019-01-18] MEDS: Omnipaque 350 MG/ML 100 ML BTL IJ (13:10)
[2019-01-18] MEDS: Breeza Beverage 473 ML BTL PO (13:11)
[2019-01-18] MEDS: Omnipaque 350 MG/ML 50 ML BTL IJ (13:12)
== END 2019-01-18 14:45 | disposition home or self-care (01) ==
PROVIDERS: Emergency Provider Physician Assistant; PCP Nurse Practitioner Family
DX: G89.18 Other acute postprocedural pain (principal); R10.9 Unspecified abdominal pain; Z90.89 Acquired absence of other organs
CPT/HCPCS: 36415; 80053; 81025; 83690; 96361; 96365; 96375; 99285; 74177; 81003; 81015; 85025; 99284; J2405; J3490; Q9967

== ENCOUNTER 2019-03-17 18:41 | Outpatient (REF) | payer SELFPAY ==
[2019-03-17 21:25] LABS: Abs Immature Grans 0.02 k/cumm (0.0-0.09); Absolute Basophil Count 0.04 k/cumm (0.0-0.2); Absolute Eosinophil Count 0.61 k/cumm (0.0-0.7); Absolute Lymphocyte Count 3.21 k/cumm (1.2-3.4); Absolute Monocyte Count 0.82 k/cumm (0.11-0.7); Absolute Neutrophil Count 5.65 k/cumm (1.2-6.7); Basophils % 0.4; Eosinophils % 5.9; HCT 38.7 % (36.0-46.0); HGB 13.2 g/dL (12.0-15.5); Immature Grans % 0.2; Mean Corp. HGB Concentration 34.1 g/dL (32.0-36.0); Mean Corpuscular Hemoglobin 29.9 pg (27.0-33.0); Mean Corpuscular Volume 87.8 fL (80-95); Mean Platelet Volume 9.9 fL (8.0-11.0); Monocytes % 7.9; Neutrophils % 54.6; Platelet Count 324 x1000/uL (130-400); RBC 4.41 m/cumm (4.00-5.20); RBC Distribution Width 12.8 % (11.7-14.6); White Blood Cell Count 10.35 k/cumm (4.4-10.8)
[2019-03-17 21:49] LABS: ALT 22 U/L (14-59); AST 23 U/L (15-37); Albumin 4.3 g/dL (3.4-5.0); Alkaline Phosphatase 87 U/L (46-116); Amylase 38 U/L (25-115); Anion Gap 13.1 mmol/L (3-11); BUN 10 mg/dL (7-18); Bilirubin, Total 0.3 mg/dL (0.2-1.0); CO2 22.9 mmol/L (21.0-32.0); CREATININE 0.89 mg/dL (0.55-1.02); Calcium 9.1 mg/dL (8.5-10.1); Chloride 105 mmol/L (98-107); Glucose 92 mg/dL (70-100); Lipase 176 U/L (73-393); Potassium 3.9 mmol/L (3.5-5.1); Sodium 141 mmol/L (136-145); TSH (W/Ref FT4) 2.33 uIU/mL (0.36-3.74); Total Protein 7.3 g/dL (6.4-8.2)
[2019-03-19 11:56] LABS: Campylobacter PCR SEE COMMENTS; Salmonella PCR SEE COMMENTS; Shiga Toxin PCR SEE COMMENTS; Shigella/Enteroinvasive Ecoli SEE COMMENTS
== END 2019-03-17 19:01 ==
LOC: NCHCN 18:41
PROVIDERS: PCP Nurse Practitioner Family; Visit Provider Nurse Practitioner Family
DX: R19.7 Diarrhea, unspecified (principal); K21.9 Gastro-esophageal reflux disease without esophagitis
CPT/HCPCS: 80053; 83690; 87505; 82150; 84443; 85025; 87177

== ENCOUNTER 2019-03-21 00:29 | Outpatient (CLI) | payer SELFPAY ==
--- NOTE | 2019-03-21 13:27 | DI.RAD_ITS ---
EXAM: XR ABDOMEN FLAT PLATE INDICATION: DIARRHEA, R19.7, ESOPHAGEAL REFLUX, K21.9. TECHNIQUE: 2D digital imaging was performed. FINDINGS: The bowel gas pattern is nonspecific. There is a small amount of stool throughout the colon. There is no evidence of bowel obstruction. The bones and joints are unremarkable. IMPRESSION: There is no evidence of an acute abdomen.
== END 2019-03-21 00:49 ==
PROVIDERS: PCP Nurse Practitioner Family; Visit Provider Nurse Practitioner Family
DX: K21.9 Gastro-esophageal reflux disease without esophagitis
CPT/HCPCS: 74018

== ENCOUNTER 2019-03-28 17:58 | Outpatient (REF) | payer SELFPAY | END 2019-03-28 18:18 | LOC: LBN 17:58 | PROVIDERS: PCP Nurse Practitioner Family; Visit Provider Surgery | DX: R69 Illness, unspecified (principal) | CPT/HCPCS: 87324 ==

== ENCOUNTER 2019-04-19 16:54 | Emergency (ER) | payer SELFPAY ==
[2019-04-19 16:57] VITALS: BP 138/82; PULSE 76; TEMP 36.8; O2SAT 100
--- NOTE | 2019-04-19 17:09 | ED.GENADUL_ITS ---
Discharge Plan Disposition Patient Disposition: HOME Condition: Fair Discharge Details Chief Complaint: GI Bleed Clinical Impression: Colitis Primary Care Provider: Jessica Mohamud ED Provider: Yolie Suarez Home Meds and New Rx's Prescriptions: New promethazine 25 mg tablet 25 mg PO Q6H PRN (Reason: nausea and vomiting) Qty: 10 RF: 0 Continued paroxetine HCl [Paxil] 40 mg tablet 40 mg PO DAILY RF: 0 Nexplanon 68 mg implant 1 implant SBD ONCE RF: 0 albuterol sulfate 2.5 mg /3 mL (0.083 %) solution for nebulization 1.25 mg IH QID PRNRF: 0 Flovent HFA 44 mcg/actuation HFA aerosol inhaler 1 inh IH BID RF: 0 propranolol 10 mg tablet 10 mg PO BID RF: 0 quetiapine [Seroquel] 25 mg tablet 25 mg PO HS RF: 0 cyclobenzaprine 10 mg tablet 10 mg PO TID PRN (Reason: pain) Qty: 20 RF: 0 meclizine 25 mg tablet 25 mg PO BID PRN (Reason: vertigo) Qty: 10 RF: 0 paroxetine HCl [Paxil] 40 mg Tablet 50 mg PO DAILY RF: 0 promethazine 25 mg tablet 25 mg PO Q6H PRN (Reason: nausea and vomiting) Qty: 20 RF: 0 Discharge Instructions Instructions: Promethazine (By mouth), Colitis (ED) Additional Instructions: Encourage hydration. Please continue with the Phenergan as prescribed if you have any recurrence of your nausea. Please follow-up with primary care if not improved in 1 week. If you develop fever/chills, increased pain or other new/worsening symptoms please seek care urgently once again. Otherwise, this is likely a viral etiology and will continue to improve. Stand Alone Forms: Work Release Referrals: Jessica Mohamud [Primary Care Provider] - Discharge Data Discharge Date/Time-TO BE ENTERED AT DEPARTURE: 04/19/19 19:40 Medical Decision Making Patient is a 28-year-old female presenting with chief complaint of left lower quadrant pain. She reports she has chronic left lower quadrant pain and associates this with her IBS. States that typically her pain is a 2 out of 10 but today it greatly exacerbated and is now feeling very similar to when she had my appendix out. Patient did have an appendectomy here 3 months ago per her report. States that yesterday she was having diarrhea, nausea and vomiting. However, her primary concern is that she noted some tarry stools yesterday and had black diarrhea today. Patient is concerned for possible GI bleed. She reports she has had multiple colonoscopies which have been thickened left colon. States that she and her primary had noted a mass in her rectum that she had evaluated by gastroenterology who were not able to feel this. They were primarily concern for possible internal hemorrhoid. However, patient is denying any bright light blood per rectum. On exam, patient is resting comfortably. She does have some left-sided abdominal discomfort with palpation but this seems to be quite mild. There is no peritoneal findings, no guarding or rebound tenderness. She has no CVA tende rness. She is denying any hematuria, dysuria or change in urinary habits. Patient believes she is able to give us a stool sample. She denies any recent antibiotics, no recent travel, camping. The diarrhea has been improving, do not feel that she needs stool study completed at this time as likely will not require antibiotics. However, given the patient's history, I am concerned for possible diverticulitis with the pain along the left side and feel that imaging is appropriate. Discussed this plan with the patient is in agreement. Patient received IV hydration. Labs reviewed. No leukocytosis. No electrolyte abnormalities. Urine significant for 15 ketones and trace leukocyte esterase. Again, patient is denying any urinary symptoms. I did consider possible kidney stone given the location of pain but find this less likely as she does not have any RBCs in the urine. CT is pending. CT was reviewed by radiologist: Liver: The liver is normal. Gallbladder and bile ducts: Normal. No calcified stones. No ductal dilation. Pancreas: The pancreas is normal. Spleen: The spleen is normal. Adrenals: No adrenal mass is present. Kidneys and ureters: The kidneys excrete contrast normally without evidence of solid renal mass or hydronephrosis. Stomach and bowel: Mild thickening of the wall of the descending and proximal sigmoid colon. Appendix: Patient is status post appendectomy. Intraperitoneal space: Unremarkable. No free air. No significant fluid collection. Vasculature: Unremarkable. No abdominal aortic aneurysm. Lymph nodes: Unremarkable. No enlarged lymph nodes. Bladder: Unremarkable as visualized. Reproductive: Unremarkable as visualized. Bones/joints: Unremarkable. No acute fracture. Soft tissues: Unremarkable. IMPRESSION: Mild thickening of the wall of the descending and proximal sigmoid colon that may represent mild colitis. Please correlate clinically. Discussed these findings with the patient. She is not surprised with this and advised that this is typically what is noted on her imaging. However, we did discuss that this may also be associated with her acute illness of vomiting diarrhea. Her Hemoccult was negative. Patient has not had Further bowel movements while here. She has been resting comfortably. Initially, she is not endorsing any nausea but no this. Will give Phenergan orally. She feels like she is able to be discharged at this point. Encourage hydration. Close follow-up with primary care if not improving. 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 She was given strict return precautions. All her questions and concerns were addressed she is in agreement this plan. HPI General Mode of arrival: ambulatory . Date/Time Provider Initiated Documentation: 04/19/19 17:06 . Limitations to Documentation: no limitations . Information obtained by: patient and RN notes reviewed . HPI Narrative: Patient is a 28-year-old female presented with chief complaint of GI bleed. She reports that yesterday she noted some dark tarry stools and was concerned for possible GI bleed. Had diarrhea and vomiting. 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 States that today, she is been having nausea but no vomiting. The diarrhea seems to have slowed but continues to notice that it is dark. Is concerned that she may have a GI bleed. She reports that she has had a multitude of gastroenterology issues historically, is followed by them closely. Reports IBS. Also reported that she was able to palpate an internal rectal mass. This is not able to be palpated by gastroenterology and there was a question of this having been internal hemorrhoid. She denies any bright red blood per rectum. Is not having pain with bowel movements. Patient is also endorsing left-sided abdominal discomfort. She reports she is a chronic left- sided discomfort but is much more than typical. States that this area has been noted to be inflamed on previous colonoscopies. Patient is status appendectomy, EGD and colonoscopy. Related Data Home Medications Medication Instructions Recorded Confirmed cyclobenzaprine 10 mg PO TID PRN #20 tab 04/01/18 03/28/19 promethazine 25 mg PO Q6H PRN #20 tab 04/21/18 03/28/19 meclizine 25 mg PO BID PRN #10 tab 07/02/18 03/28/19 albuterol sulfate 1.25 mg IH QID PRN 10/11/18 03/28/19 etonogestrel 68 mg subdermal 1 implant SBD ONCE 10/11/18 03/28/19 implant fluticasone propionate 44 1 inh IH BID 10/11/18 03/28/19 mcg/actuation HFA aerosol inhaler propranolol 10 mg tablet 10 mg PO BID 10/11/18 04/19/19 quetiapine 25 mg tablet 25 mg PO HS tab 10/11/18 03/28/19 paroxetine HCl [Paxil] 50 mg PO DAILY 01/15/19 04/19/19 paroxetine HCl 40 mg tablet 40 mg PO DAILY 03/28/19 04/19/19 promethazine 25 mg PO Q6H PRN #10 tab 04/19/19 Previous Rx's Medication Instructions Recorded cyclobenzaprine 10 mg PO TID PRN #20 tab 04/01/18 promethazine 25 mg PO Q6H PRN #20 tab 04/21/18 meclizine 25 mg PO BID PRN #10 tab 07/02/18 promethazine 25 mg PO Q6H PRN #10 tab 04/19/19 Allergies Allergy/AdvReac Type Severity Reaction Status Date / Time chocolate flavor Allergy Severe Painful Verified 04/19/19 17:55 tongue lamotrigine Allergy Unknown Verified 04/19/19 17:55 gluten AdvReac Severe Gi Upset Verified 04/19/19 18:01 ondansetron [From Zofran] AdvReac Intermediate Other (See Verified 04/19/19 18:01 Comment) lactase [From Dairy Aid] AdvReac Verified 04/19/19 17:55 peanut AdvReac Verified 04/19/19 17:55 pineapple AdvReac Verified 04/19/19 17:55 Yeast AdvReac Verified 04/19/19 17:55 Environmental Allergy Intermediate Runny Uncoded 04/19/19 17:55 nose, sneezing cottage cheese AdvReac Uncoded 04/19/19 17:55 wheat AdvReac Uncoded 04/19/19 17:55 General Stated Complaint: GenMedical ALL: 3 Review of Systems Constitutional Constitutional: Reports as per HPI, Denies chills, Denies fatigue, Denies fever(s) and Denies headache(s) ENT Ears, Nose, Mouth, and Throat: Denies headache(s) Cardiovascular Cardiovascular: Reports as per HPI, Denies chest pain and Denies dyspnea Respiratory Respiratory: Reports as per HPI, Denies cough and Denies dyspnea Gastrointestinal Gastrointestinal: Reports as per HPI Musculoskeletal Musculoskeletal: Reports as per HPI and Denies back pain Integumentary/Breasts Skin/Breast: Reports as per HPI and Denies rash Neurologic Neurologic: Reports as per HPI and Denies headache(s) Endocrine Endocrine: Denies fatigue [facility] Medical History Acute appendicitis (Inactive) MARK positive (Acute) Asthma, intermittent (Acute) Colitis (Acute) Diarrhea (Acute) Dizziness (Acute) Esophageal reflux (Chronic) Fatty liver (Acute) Fibromyalgia (Acute) Headache (Acute) Hip pain, bilateral (Acute) History of gluten intolerance (Acute) History of IBS (Acute) History of ITP (Chronic) Hypokalemia (Acute) Immune thrombocytopenic purpura (Acute) Leg pain, bilateral (Acute) Maculopapular rash (Acute) Menorrhagia (Acute) Migraine Murmur, cardiac (Acute) Obesity (Chronic) Post traumatic stress disorder (PTSD) (Acute) Raynauds syndrome (Acute) Rectal mass (Acute) Sinus tachycardia (Acute) Stress incontinence (Acute) Subclinical hypothyroidism (Acute) Surgical History H/O colonoscopy (Chronic) x 2 H/O esophagogastroduodenoscopy (Chronic) x 2 S/P laparoscopic appendectomy (Acute ~01/15/19) Social History Smoking/Tobacco Use Status: Former Tobacco Use Alcohol Intake: never Drug use: Never Substance use type: does not use Do you feel safe at home: Yes Do you feel safe in your relationship?: Yes Exam Const General: cooperative, healthy appearing, comfortable, no acute distress and well developed Nutritional Appearance: average body habitus and well nourished Orientation: alert and awake HENAL Head: normal to inspection Mouth: moist mucous membranes Resp Effort & Inspection: normal respiratory effort, able to speak in complete sentences and no respiratory distress Auscultation: clear to auscultation bilaterally, no rales, no rhonchi and no wheezes Cardio Rate: regular rate Rhythm: regular rhythm Heart Sounds: S1 normal and S2 normal GI Inspection: normal to inspection, no edema, non-distended, no large pannus, no visible herniation and no visible pulsation Palpation: soft, no hepatosplenomegaly, not firm, no guarding, no hernias, no pulsatile masses, not rigid and tender in the LLQ; with no rebound tenderness Percussion: normal to percussion Rectal Exam - female: laceration Back/Spine/Pelvis Back: no CVA tenderness Skin General skin exam: no rashes or lesions noted Trauma: no lacerations or abrasions Neuro General: alert and awake Cognition: normal cognition Speech: speech normal Gait: normal gait Psych Appearance: grossly normal and well kempt Mental Status: mental status grossly normal Speech and Movement: speech and movement normal Course Vital Signs Vital signs: Vital Signs Temperature 36.8 C 04/19/19 16:57 Pulse 76 04/19/19 16:57 Blood Pressure 138/82 04/19/19 16:57 Pulse Oximetry 100 04/19/19 16:57 Temperature 36.8 C 04/19/19 16:57 Temperature Source Skin 04/19/19 16:57 Pulse 76 04/19/19 16:57 Blood Pressure 138/82 04/19/19 16:57 Blood Pressure Position Sitting 04/19/19 16:57 Pulse Oximetry 100 04/19/19 16:57 Oxygen Delivery Method Room Air 04/19/19 16:57 Oxygen Flow Rate 0 04/19/19 16:57 Pain Level 6 04/19/19 16:57 Comment 04/19/19 16:57
--- NOTE | 2019-04-19 17:15 | DI.CT_ITS ---
EXAM: CT ABDOMEN PELVIS W CLINICAL HISTORY: LLQ pain. TECHNIQUE: The examination was carried out according to the usual protocol with intravenous administ ration of 100 cc of Omnipaque 350. COMPARISON: No exams were available for comparison FINDINGS: The liver is intact. The gallbladder is normal. There are no stones or ductal dilatation. The pancr eas and spleen and adrenals are intact. The kidneys are intact. There is some mild thickening of th e wall of the descending and proximal sigmoid colon. The patient is status post appendectomy. There is no evidence of free air or free fluid in the intraperitoneal space. The abdominal aorta is intac t. There is no evidence of an aneurysm. There is no evidence of lymphadenopathy. Bladder is unremar kable. The reproductive organs as visualized appear unremarkable. No acute bony abnormality is seen. The soft tissues are unremarkable. IMPRESSION: Mild thickening of the wall of the descending and proximal sigmoid colon is demonstrated which could represent mild colitis. Clinical correlation is suggested.
[2019-04-19 17:54] LABS: Bilirubin Negative (Negative); Blood Negative (Negative); Clarity Clear (Clear); Glucose Negative (Negative); Ketones 15 mg/dL (Negative); Leukocyte Esterase Trace (Negative); Nitrite Negative (Negative); Urobilinogen 0.2 EU/dL (Up TO 0.2)
[2019-04-19 18:09] LABS: Abs Immature Grans 0.01 k/cumm (0.0-0.09); Absolute Basophil Count 0.04 k/cumm (0.0-0.2); Absolute Eosinophil Count 0.33 k/cumm (0.0-0.7); Absolute Lymphocyte Count 3.08 k/cumm (1.2-3.4); Absolute Monocyte Count 0.64 k/cumm (0.11-0.7); Absolute Neutrophil Count 5.87 k/cumm (1.2-6.7); Basophils % 0.4; Eosinophils % 3.3; HCT 38.4 % (36.0-46.0); HGB 13.3 g/dL (12.0-15.5); Immature Grans % 0.1; Lymphocytes % 30.9; Mean Corp. HGB Concentration 34.6 g/dL (32.0-36.0); Mean Corpuscular Hemoglobin 30.5 pg (27.0-33.0); Mean Corpuscular Volume 88.1 fL (80-95); Mean Platelet Volume 9.1 fL (8.0-11.0); Monocytes % 6.4; Neutrophils % 58.9; Platelet Count 290 x1000/uL (130-400); RBC 4.36 m/cumm (4.00-5.20); RBC Distribution Width 12.7 % (11.7-14.6); White Blood Cell Count 9.97 k/cumm (4.4-10.8)
[2019-04-19 18:13] LABS: Bacteria Rare HPF (Negative); C & S Indicated? No; Casts Negative LPF (Negative); Crystals Negative HPF (Negative); Epithelial Cells Rare HPF (Negative); Mucus Negative (Negative); Other Cells Negative (Negative); RBC Negative (0-2); WBC 0-2 HPF (0-5)
[2019-04-19] MEDS: Omnipaque 350 MG/ML 100 ML BTL IJ (18:16)
[2019-04-19 18:20] LABS: ALT 16 U/L (14-59); AST 20 U/L (15-37); Albumin 4.2 g/dL (3.4-5.0); Alkaline Phosphatase 83 U/L (46-116); Anion Gap 12.6 mmol/L (3-11); BUN 6 mg/dL (7-18); Bilirubin, Total 0.6 mg/dL (0.2-1.0); CO2 24.4 mmol/L (21.0-32.0); CREATININE 0.78 mg/dL (0.55-1.02); Calcium 9.1 mg/dL (8.5-10.1); Chloride 104 mmol/L (98-107); Glucose 88 mg/dL (70-100); Lipase 125 U/L (73-393); Potassium 3.7 mmol/L (3.5-5.1); Sodium 141 mmol/L (136-145); Total Protein 7.6 g/dL (6.4-8.2)
[2019-04-19] MEDS: Lactated Ringers 1,000 ML 1000 ML IV (18:31)
--- NOTE | 2019-04-19 18:32 | NUR.NOTE ---
Nursing Note: Stool heme negative- tested in 2 separate areas. Provider aware.
--- NOTE | 2019-04-19 18:51 | DI.VRAD_ITS ---
PROCEDURE INFORMATION: Exam: CT Abdomen And Pelvis With Contrast Exam date and time: 04/19/2019 6:14 PM Clinical history: 28 years old, female; Abdominal pain TECHNIQUE: Imaging protocol: Computed tomography of the abdomen and pelvis with intravenous contrast. COMPARISON: CT Abdomen^ROUTINE ABDOMEN PELVIS WITH CONTRAST (Adult) 01/18/2019 1:01 PM FINDINGS: Liver: The liver is normal. Gallbladder and bile ducts: Normal. No calcified stones. No ductal dilation. Pancreas: The pancreas is normal. Spleen: The spleen is normal. Adrenals: No adrenal mass is present. Kidneys and ureters: The kidneys excrete contrast normally without evidence of solid renal mass or hydronephrosis. Stomach and bowel: Mild thickening of the wall of the descending and proximal sigmoid colon. Appendix: Patient is status post appendectomy. Intraperitoneal space: Unremarkable. No free air. No significant fluid collection. Vasculature: Unremarkable. No abdominal aortic aneurysm. Lymph nodes: Unremarkable. No enlarged lymph nodes. Bladder: Unremarkable as visualized. Reproductive: Unremarkable as visualized. Bones/joints: Unremarkable. No acute fracture. Soft tissues: Unremarkable. IMPRESSION: Mild thickening of the wall of the descending and proximal sigmoid colon that may represent mild colitis. Please correlate clinically. Dictated and Authenticated by: Nicolas Alamo MD. Ordering:QUINTON Urbano MD
[2019-04-19] MEDS: Promethazine 25 MG TAB PO (19:21)
== END 2019-04-19 19:40 | disposition home or self-care (01) ==
PROVIDERS: Emergency Provider Physician Assistant; PCP Nurse Practitioner Family
DX: K52.9 Noninfective gastroenteritis and colitis, unspecified (principal); Z98.890 Other specified postprocedural states
CPT/HCPCS: 36415; 80053; 81025; 83690; 96360; 99285; 74177; 81003; 81015; 85025; 99284; J3490

== ENCOUNTER 2019-06-06 18:09 | Outpatient (REF) | payer SELFPAY ==
--- NOTE | 2019-06-06 17:30 | PAPFT_PTH ---
PATIENT: Daniela Ruiz LOC: [facility] U#:[id number] AGE/SX: 28/F ROOM: RE06/06/[address]: Jessica Mohamud : 1990 BED: DIS: 06/06/2019 SPEC #: [id number] RECD: 06/07/19 12:43 STATUS: MARY RELeelee #: [id number] FRANCO: 06/06/19 17:[address]: Jessica Mohamud DEPT: [facility] Cytology RECD BY: Gissell Queen Tissues: 1 - CX/ENDOCX FOR PAP SMEARS Procedures: PAP THIN PREP/UVM Screening HPV DNA PROBE Comments: [id number] (CHLAMYDIA/GC)
[2019-06-08 15:06] LABS: Chlamydia Result Negative (Negative); GC Result Negative (Negative)
== END 2019-06-06 18:29 ==
LOC: NCHCN 18:09
PROVIDERS: PCP Nurse Practitioner Family; Visit Provider Nurse Practitioner Family
DX: Z11.3 Encounter for screening for infections with a predominantly sexual mode of transmission (principal); Z12.4 Encounter for screening for malignant neoplasm of cervix; N94.6 Dysmenorrhea, unspecified; Z01.419 Encounter for gynecological examination (general) (routine) without abnormal findings; Z00.00 Encounter for general adult medical examination without abnormal findings
CPT/HCPCS: 87491; 87591; 88142; 87624

== ENCOUNTER 2019-08-29 10:06 | Outpatient (CLI) | payer MEDICAID, SELFPAY ==
[2019-08-29 10:24] LABS: Absolute Basophil Count 0.02 k/cumm (0.0-0.2); Absolute Eosinophil Count 0.14 k/cumm (0.0-0.7); Absolute Lymphocyte Count 1.64 k/cumm (1.2-3.4); Absolute Monocyte Count 0.62 k/cumm (0.11-0.7); Absolute Neutrophil Count 2.62 k/cumm (1.2-6.7); Basophils % 0.4; Eosinophils % 2.8; HCT 42.5 % (36.0-46.0); HGB 14.6 g/dL (12.0-15.5); Lymphocytes % 32.5; Mean Corp. HGB Concentration 34.4 g/dL (32.0-36.0); Mean Corpuscular Hemoglobin 30.5 pg (27.0-33.0); Mean Corpuscular Volume 88.9 fL (80-95); Mean Platelet Volume 9.2 fL (8.0-11.0); Monocytes % 12.3; Platelet Count 260 x1000/uL (130-400); RBC 4.78 m/cumm (4.00-5.20); RBC Distribution Width 12.8 % (11.7-14.6); White Blood Cell Count 5.04 k/cumm (4.4-10.8)
== END 2019-08-29 10:26 ==
PROVIDERS: PCP Nurse Practitioner Family; Visit Provider Nurse Practitioner Family
DX: D69.3 Immune thrombocytopenic purpura (principal)
CPT/HCPCS: 36415; 85025

== ENCOUNTER 2019-10-22 09:35 | Emergency (ER) | payer MEDICAID, SELFPAY ==
[2019-10-22 09:39] VITALS: BP 142/80; PULSE 96; RESP 22; TEMP 37.1; O2SAT 100
--- NOTE | 2019-10-22 09:51 | W.ED.GENAD ---
Discharge Plan Disposition Patient Disposition: HOME Condition: Improving Discharge Details Chief Complaint: Nausea/Vomit/Diar Clinical Impression: Gastroenteritis Primary Care Provider: Jessica Mohamud ED Provider: Amadeo Ozuna Home Meds and New Rx's Prescriptions: New promethazine 25 mg tablet 25 mg PO TID PRN (Reason: nausea and vomiting) Qty: 10 RF: 0 Continued Nexplanon 68 mg implant 1 implant SBD ONCE RF: 0 albuterol sulfate 2.5 mg /3 mL (0.083 %) solution for nebulization 1.25 mg IH QID PRNRF: 0 Flovent HFA 44 mcg/actuation HFA aerosol inhaler 1 inh IH BID RF: 0 meclizine 25 mg tablet 25 mg PO BID PRN (Reason: vertigo) Qty: 10 RF: 0 citalopram [Celexa] 40 mg Tablet 40 mg PO DAILY RF: 0 mirtazapine 45 mg Tablet 45 mg PO HS RF: 0 Discontinued promethazine 25 mg tablet 25 mg PO Q6H PRN (Reason: nausea and vomiting) Qty: 20 RF: 0 Discharge Instructions Instructions: Gastroenteritis (ED) Additional Instructions: Small, frequent sips of fluids to maintain hydration. May use the provided Phenergan as needed for persistent nausea. Return if you develop worsening pain, high fever, persistent uncontrolled vomiting, or any other acute concerns. Medical Decision Making 28-year-old female presents with hours of nausea and vomiting at home. She did have a positive sick contact with her son who had a GI bug. She denies a fever, no cough, no recent travel or known ill contacts. She arrives with reassuring vital signs, afebrile, soft abdominal exam but with somewhat diminished bowel sounds. She does have a surgical history including appendectomy. Differential diagnosis includes gastroenteritis, ileus, bowel obstruction. IV access established, patient given fluid bolus and antiemetic, labs obtained, and she is referred for x-ray. CBC reveals a white count 10, medic at 40, platelets 282. Chemistries reassuring, glucose is 117, unremarkable electrolytes and LFTs. X-ray is without evidence of obstruction, there is note of a question of slight atelectasis at the right base but no focal consolidation. Following fluids, antiemetic, patient able to take a popsicle by mouth. Lab Data Lab results reviewed: Yes I reviewed the patient's lab results. Labs: Laboratory Results - last 24 hr 10/22/19 10/22/19 10/22/19 09:55 09:55 10:00 WBC 10.12 RBC 4.56 Hgb 14.0 Hct 40.7 MCV 89.3 MCH 30.7 MCHC 34.4 RDW 12.9 Plt Count 282 MPV 9.1 Immature Gran % 0.3 Neutrophils % 78.6 Lymphocytes % 15.0 Monocytes % 4.2 Eosinophils % 1.7 Basophils % 0.2 Absolute Neutrophils 7.96 H Absolute Lymphocytes 1.52 Absolute Monocytes 0.42 Absolute Eosinophils 0.17 Absolute Basophils 0.02 Sodium 139 Potassium 3.8 Chloride 104 Carbon Dioxide 26.2 Anion Gap 8.8 BUN 11 Creatinine 0.95 Estimated GFR/1.73 m2 >= 60.00 Glucose 117 H Calcium 8.6 Magnesium 1.9 Total Bilirubin 0.3 AST 35 ALT 39 Alkaline Phosphatase 90 Total Protein 7.6 Albumin 4.0 Urine Color Cancelled Urine Clarity Cancelled Urine pH Cancelled Ur Specific Gregory Cancelled Urine Protein Cancelled Urine Ketones Cancelled Urine Blood Cancelled Urine Nitrite Cancelled Urine Bilirubin Cancelled Urine Urobilinogen Cancelled Ur Leukocyte Esterase Cancelled Urine Glucose Cancelled HPI General Mode of arrival: ambulatory. Date/Time Provider Initiated Documentation: 10/22/19 09:35. Limitations to Documentation: no limitations. Information obtained by: patient. History of Present Illness 28 year old F presents to the emergency department with the chief complaint of Nausea and vomiting beginning this morning, described as moderate, Quality is described as dull, and is localized to the abdomen. Patient reports no radiation. Patient started experiencing this hour(s) and it has been intermittent. Rest improves symptom(s), Eating worsens symptoms . Patient notes other; denies fever/chills and headaches. Patient did receive the following treatments prior to arrival, none Related Data Home Medications Medication Instructions Recorded Confirmed meclizine 25 mg PO BID PRN #10 tab 07/02/18 10/22/19 albuterol sulfate 1.25 mg IH QID PRN 10/11/18 10/22/19 etonogestrel 68 mg subdermal 1 implant SBD ONCE 10/11/18 10/22/19 implant fluticasone propionate 44 1 inh IH BID 10/11/18 10/22/19 mcg/actuation HFA aerosol inhaler citalopram [Celexa] 40 mg PO DAILY 10/22/19 10/22/19 mirtazapine 45 mg PO HS 10/22/19 10/22/19 promethazine 25 mg PO TID PRN #10 tab 10/22/19 Previous Rx's Medication Instructions Recorded meclizine 25 mg PO BID PRN #10 tab 07/02/18 promethazine 25 mg PO TID PRN #10 tab 10/22/19 Allergies Allergy/AdvReac Type Severity Reaction Status Date / Time chocolate flavor Allergy Severe Painful Verified 10/22/19 09:43 tongue lamotrigine Allergy Unknown Verified 10/22/19 09:43 gluten AdvReac Severe Gi Upset Verified 10/22/19 09:43 ondansetron [From Zofran] AdvReac Intermediate Other (See Verified 10/22/19 09:43 Comment) lactase [From Dairy Aid] AdvReac Verified 10/22/19 09:43 peanut AdvReac Verified 10/22/19 09:43 pineapple AdvReac Verified 10/22/19 09:43 Yeast AdvReac Verified 10/22/19 09:43 Environmental Allergy Intermediate Runny Uncoded 10/22/19 09:43 nose, sneezing cottage cheese AdvReac Uncoded 10/22/19 09:43 wheat AdvReac Uncoded 10/22/19 09:43 General Stated Complaint: Nausea/Vomit/Diar ALL: 3 Review of Systems Narrative: Denies travel, known sick contacts, no fever or cough. 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 She has otherwise been well. Positive sick contacts with her son who had a GI bug [facility] Medical History Acute appendicitis (Inactive) MARK positive (Acute) Asthma, intermittent (Acute) Colitis (Acute) Diarrhea (Acute) Dizziness (Acute) Esophageal reflux (Chronic) Fatty liver (Acute) Fibromyalgia (Acute) Headache (Acute) Hip pain, bilateral (Acute) History of gluten intolerance (Acute) History of IBS (Acute) History of ITP (Chronic) Hypokalemia (Acute) Immune thrombocytopenic purpura (Acute) Leg pain, bilateral (Acute) Maculopapular rash (Acute) Menorrhagia (Acute) Migraine Murmur, cardiac (Acute) Obesity (Chronic) Post traumatic stress disorder (PTSD) (Acute) Raynauds syndrome (Acute) Rectal mass (Acute) Sinus tachycardia (Acute) Stress incontinence (Acute) Subclinical hypothyroidism (Acute) Surgical History H/O colonoscopy (Chronic) x 2 H/O esophagogastroduodenoscopy (Chronic) x 2 S/P laparoscopic appendectomy (Acute ~01/15/19) Social History Smoking/Tobacco Use Status: Former Tobacco Use Alcohol Intake: never Drug use: Never Substance use type: does not use Do you feel safe at home: Yes Do you feel safe in your relationship?: Yes Exam Narrative Exam Narrative: GEN: awake, alert, oriented 3. Pleasant, well groomed, interactive. HEAD: Normocephalic, atraumatic ENT: Mucous membranes moist, External ear exam unremarkable EYES: PERRL, EOMI NECK: Full ROM, no TEO, no menigismus CHEST/RESP: Nontender, clear to auscultation bilateral, no wheeze/rhonchi/rales CARDIOVASCULAR: RRR, no murmur, rub na. 2+ Rad pulse bilateral ABDOMEN: Soft, nontender, no mass. + But decreased bowel sounds EXT: Full ROM, no edema, no rash Neuro: Grossly normal neurologic exam, conversant, interactive. Psych: Speech fluent, thoughts congruent, affect normal Course Vital Signs Vital signs: Vital Signs Temperature 37.1 C 10/22/19 09:39 Pulse 96 H 10/22/19 09:39 Respiratory Rate 22 10/22/19 09:39 Blood Pressure 142/80 H 10/22/19 09:39 Pulse Oximetry 100 10/22/19 09:39 Temperature 37.1 C 10/22/19 09:39 Temperature Source Skin 10/22/19 09:39 Pulse 96 H 10/22/19 09:39 Respiratory Rate 22 10/22/19 09:39 Respiratory Effort 10/22/19 09:46 Blood Pressure 142/80 H 10/22/19 09:39 Blood Pressure Position Sitting 10/22/19 09:39 Pulse Oximetry 100 10/22/19 09:39 Oxygen Delivery Method Room Air 10/22/19 09:39 Oxygen Flow Rate 0 04/25/20 09:39 Pain Level 3 10/22/19 09:39
[2019-10-22] MEDS: Normal Saline Flush 10 ML SYR IVP (10:01)
[2019-10-22] MEDS: Normal Saline 1,000 ML 1000 ML IV (10:01)
[2019-10-22 10:14] LABS: Abs Immature Grans 0.03 k/cumm (0.0-0.09); Absolute Basophil Count 0.02 k/cumm (0.0-0.2); Absolute Eosinophil Count 0.17 k/cumm (0.0-0.7); Absolute Lymphocyte Count 1.52 k/cumm (1.2-3.4); Absolute Monocyte Count 0.42 k/cumm (0.11-0.7); Absolute Neutrophil Count 7.96 k/cumm (1.2-6.7); Basophils % 0.2; Eosinophils % 1.7; HCT 40.7 % (36.0-46.0); Immature Grans % 0.3 %; Mean Corp. HGB Concentration 34.4 g/dL (32.0-36.0); Mean Corpuscular Hemoglobin 30.7 pg (27.0-33.0); Mean Corpuscular Volume 89.3 fL (80-95); Mean Platelet Volume 9.1 fL (8.0-11.0); Monocytes % 4.2; Neutrophils % 78.6; Platelet Count 282 x1000/uL (130-400); RBC 4.56 m/cumm (4.00-5.20); RBC Distribution Width 12.9 % (11.7-14.6); White Blood Cell Count 10.12 k/cumm (4.4-10.8)
[2019-10-22 10:31] LABS: ALT 39 U/L (14-59); AST 35 U/L (15-37); Alkaline Phosphatase 90 U/L (46-116); Anion Gap 8.8 mmol/L (3-11); BUN 11 mg/dL (7-18); Bilirubin, Total 0.3 mg/dL (0.2-1.0); CO2 26.2 mmol/L (21.0-32.0); CREATININE 0.95 mg/dL (0.55-1.02); Calcium 8.6 mg/dL (8.5-10.1); Chloride 104 mmol/L (98-107); Glucose 117 mg/dL (74-106); Magnesium 1.9 mg/dL (1.8-2.4); Potassium 3.8 mmol/L (3.5-5.1); Sodium 139 mmol/L (136-145); Total Protein 7.6 g/dL (6.4-8.2)
--- NOTE | 2019-10-22 10:37 | DI.RAD_ITS ---
EXAM: XR ABD FLAT UPRIGHT PA CHEST CLINICAL HISTORY: Nausea and vomiting. Distant appendicitis. TECHNIQUE: 2D digital imaging was performed. COMPARISON: No exams were available for comparison FINDINGS: Lungs: Clear. No pneumothorax is present. Heart: Normal in size. Mediastinum: Normal. Bones: Unremarkable. Other: The patient has an umbilical ring that could not be removed. Abdomen:There are nondilated loops of small and large bowel containing gas and stool. There are no di lated loops to suggest ileus or obstruction. There is no evidence of free intra-abdominal gas. There is a moderate amount of retained stool in the right colon. IMPRESSION: Normal radiographs of the chest and abdomen. DATA REPOSITORY: RADIATION DOSE DELIVERED:
[2019-10-22 11:03] VITALS: BP 106/55; PULSE 73; RESP 20; TEMP 36.5; O2SAT 100
--- NOTE | 2019-10-22 11:05 | DI.VRAD_ITS ---
PROCEDURE INFORMATION: Exam: XR Complete Acute Abdomen Series Exam date and time: 10/22/2019 10:32 AM Age: 28 years old Clinical indication: Nausea and vomiting; Patient HX: Nausea, vomiting, distant appendicitis. TECHNIQUE: Imaging protocol: XR complete acute abdomen series, including 2 or more views of the abdomen and a single view chest. COMPARISON: CR CHEST 2 VIEWS PA,LAT 07/10/2017 12:36 PM FINDINGS: Lungs: Mild opacities in the medial right base may represent atelectasis or pneumonia. Pleural space: Normal. No pneumothorax. Heart/Mediastinum: Normal. No cardiomegaly. Gastrointestinal tract: Constipation in the right colon Intraperitoneal space: Normal. No free air. Bones/joints: Normal. No acute fracture. Soft tissues: Metallic density is thought to represent a umbilical ring IMPRESSION: Mild opacities in the medial right base may represent atelectasis or pneumonia. Dictated and Authenticated by: Teena Delgado MD. Ordering:DEVORA Childs MD
[2019-10-22 11:57] VITALS: BP 107/59; PULSE 89; RESP 16; TEMP 36.3; O2SAT 100
== END 2019-10-22 12:15 | disposition home or self-care (01) ==
LOC: ER 12:04
PROVIDERS: Emergency Provider Emergency Medicine; PCP Nurse Practitioner Family
DX: K52.89 Other specified noninfective gastroenteritis and colitis (principal)
CPT/HCPCS: 80053; 81025; 96361; 96365; 96366; 99285; 74022; 81003; 83735; 85025; 99284

== ENCOUNTER 2019-11-12 10:04 | Emergency (ER) | payer MEDICAID, SELFPAY ==
[2019-11-12 10:10] VITALS: BP 118/61; PULSE 94; RESP 16; TEMP 36.4; O2SAT 98
--- NOTE | 2019-11-12 10:23 | W.ED.GENAD ---
Discharge Plan Disposition Patient Disposition: HOME Condition: Improving Discharge Details Chief Complaint: Nausea/Vomit/Diar Clinical Impression: Gastroenteritis Primary Care Provider: Jessica Mohamud ED Provider: Amadeo Ozuna Home Meds and New Rx's Prescriptions: Continued Nexplanon 68 mg implant 1 implant SBD ONCE RF: 0 albuterol sulfate 2.5 mg /3 mL (0.083 %) solution for nebulization 1.25 mg IH QID PRNRF: 0 Flovent HFA 44 mcg/actuation HFA aerosol inhaler 1 inh IH BID RF: 0 promethazine 25 mg tablet 25 mg PO TID PRN (Reason: nausea and vomiting) Qty: 10 RF: 0 citalopram [Celexa] 40 mg Tablet 40 mg PO DAILY RF: 0 Discharge Instructions Instructions: Gastroenteritis (ED) Additional Instructions: Home to rest. Small, frequent sips of fluids to maintain hydration. May slowly progress a bland diet. Phenergan as needed at home for nausea. Return if you have a fever, recurrent vomiting, or any other acute concerns. Medical Decision Making 29-year-old female presents from home. She has a longstanding history of irritable bowel syndrome, presents with nausea, vomiting, loose watery stools that began after eating [employer] food and sushi with raw fish last night. No travel or known sick contacts, she is afebrile and well-appearing. IV access established, patient given 2 L fluid bolus, antiemetic, screening laboratories were obtained. Unremarkable CBC, chemistries note mild elevation of Cr over baseline. Pt improving with IVF and able to tolerate PO. She is improving and appears to respond nicely to conservative management of probable gastroenteritis. She will require possible PRN use of antiemetic at home and has done well with Phenergan in the past. Appropriate for discharge to home at this time. She understands homecare as well as indications to seek reevaluation. Lab Data Lab results reviewed: Yes I reviewed the patient's lab results. Labs: Laboratory Results - last 24 hr 11/12/19 11/12/19 10:55 10:55 WBC 9.25 RBC 4.69 Hgb 14.3 Hct 41.7 MCV 88.9 MCH 30.5 MCHC 34.3 RDW 12.5 Plt Count 285 MPV 8.9 Immature Gran % 0.2 Neutrophils % 80.5 Lymphocytes % 13.0 Monocytes % 5.0 Eosinophils % 1.1 Basophils % 0.2 Absolute Neutrophils 7.45 H Absolute Lymphocytes 1.20 Absolute Monocytes 0.46 Absolute Eosinophils 0.10 Absolute Basophils 0.02 Sodium 138 Potassium 4.0 Chloride 104 Carbon Dioxide 27.3 Anion Gap 6.7 BUN 10 Creatinine 1.03 H Estimated GFR/1.73 m2 >= 60.00 Glucose 118 H Calcium 8.7 Total Bilirubin 0.4 AST 21 ALT 22 Alkaline Phosphatase 86 Total Protein 7.5 Albumin 4.0 Lipase 136 HPI General Mode of arrival: ambulatory. Date/Time Provider Initiated Documentation: 11/12/19 10:09. Limitations to Documentation: no limitations. Information obtained by: patient. History of Present Illness 29 year old F presents to the emergency department with the chief complaint of Nausea, vomiting, diarrhea for hours time after eating sushi/setswana, described as moderate, Quality is described as dull, and is localized to the abdomen. Patient reports no radiation. Patient started experiencing this hour(s) and it has been intermittent. No relieving factors improve symptom(s), No exacerbating factors reported . Patient notes nausea/vomiting and other (Diarrhea). Patient did receive the following treatments prior to arrival, other (Phenergan but vomited up) Related Data Home Medications Medication Instructions Recorded Confirmed albuterol sulfate 1.25 mg IH QID PRN 10/11/18 11/12/19 etonogestrel 68 mg subdermal 1 implant SBD ONCE 10/11/18 11/12/19 implant fluticasone propionate 44 1 inh IH BID 10/11/18 11/12/19 mcg/actuation HFA aerosol inhaler citalopram [Celexa] 40 mg PO DAILY 10/22/19 11/12/19 promethazine 25 mg PO TID PRN #10 tab 11/12/19 Previous Rx's Medication Instructions Recorded promethazine 25 mg PO TID PRN #10 tab 11/12/19 Allergies Allergy/AdvReac Type Severity Reaction Status Date / Time chocolate flavor Allergy Severe Painful Verified 11/12/19 10:14 tongue lamotrigine Allergy Unknown Verified 11/12/19 10:14 gluten AdvReac Severe Gi Upset Verified 11/12/19 10:14 ondansetron [From Zofran] AdvReac Intermediate Other (See Verified 11/12/19 10:14 Comment) lactase [From Dairy Aid] AdvReac Verified 11/12/19 10:14 peanut AdvReac Verified 11/12/19 10:14 pineapple AdvReac Verified 11/12/19 10:14 Yeast AdvReac Verified 11/12/19 10:14 Environmental Allergy Intermediate Runny Uncoded 11/12/19 10:14 nose, sneezing cottage cheese AdvReac Uncoded 11/12/19 10:14 wheat AdvReac Uncoded 11/12/19 10:14 General Stated Complaint: Nausea/Vomit/Diar ALL: 3 Review of Systems Narrative: Similar to previous. No recent illness. No fever, chills. Positive nausea, vomiting, watery stool, no blood in the effluent. 6 systems reviewed and otherwise negative [facility] Medical History Acute appendicitis (Inactive) MARK positive (Acute) Asthma, intermittent (Acute) Colitis (Acute) Diarrhea (Acute) Dizziness (Acute) Esophageal reflux (Chronic) Fatty liver (Acute) Fibromyalgia (Acute) Headache (Acute) Hip pain, bilateral (Acute) History of gluten intolerance (Acute) History of IBS (Acute) History of ITP (Chronic) Hypokalemia (Acute) Immune thrombocytopenic purpura (Acute) Leg pain, bilateral (Acute) Maculopapular rash (Acute) Menorrhagia (Acute) Migraine Murmur, cardiac (Acute) Obesity (Chronic) Post traumatic stress disorder (PTSD) (Acute) Raynauds syndrome (Acute) Rectal mass (Acute) Sinus tachycardia (Acute) Stress incontinence (Acute) Subclinical hypothyroidism (Acute) Surgical History H/O colonoscopy (Chronic) x 2 H/O esophagogastroduodenoscopy (Chronic) x 2 S/P laparoscopic appendectomy (Acute ~01/15/19) Social History Smoking/Tobacco Use Status: Former Tobacco Use Alcohol Intake: never Drug use: Never Substance use type: marijuana Do you feel safe at home: Yes Do you feel safe in your relationship?: Yes Exam Narrative Exam Narrative: GEN: awake, alert, oriented 3. Pleasant, well groomed, interactive. HEAD: Normocephalic, atraumatic ENT: Mucous membranes dry, oropharynx unremarkable, External ear exam unremarkable EYES: PERRL, EOMI NECK: Full ROM, no TEO, no menigismus CHEST/RESP: Nontender, clear to auscultation bilateral, no wheeze/rhonchi/rales CARDIOVASCULAR: RRR, no murmur, rub na. 2+ Rad pulse bilateral ABDOMEN: Soft, diminished bowel sounds, diffusely tender but no rebound or guarding, no mass. EXT: Full ROM, no edema, no rash Neuro: Grossly normal neurologic exam, conversant, interactive. Psych: Speech fluent, thoughts congruent, affect normal Course Vital Signs Vital signs: Vital Signs Temperature 36.4 C L 11/12/19 10:10 Pulse 94 H 11/12/19 10:10 Respiratory Rate 16 11/12/19 10:10 Blood Pressure 118/61 11/12/19 10:10 Pulse Oximetry 98 11/12/19 10:10 Temperature 36.4 C L 11/12/19 10:10 Temperature Source Tympanic 11/12/19 10:10 Pulse 94 H 11/12/19 10:10 Respiratory Rate 16 11/12/19 10:10 Respiratory Effort Non-Labored 11/12/19 10:13 Blood Pressure 118/61 11/12/19 10:10 Blood Pressure Position Sitting 11/12/19 10:10 Pulse Oximetry 98 11/12/19 10:10 Oxygen Delivery Method Room Air 11/12/19 10:10 Oxygen Flow Rate 0 11/12/19 10:10 Pain Level 3 11/12/19 10:10
[2019-11-12] MEDS: Normal Saline 1,000 ML 2000 ML IV (11:00)
[2019-11-12 11:02] LABS: Abs Immature Grans 0.02 k/cumm (0.0-0.09); Absolute Basophil Count 0.02 k/cumm (0.0-0.2); Absolute Monocyte Count 0.46 k/cumm (0.11-0.7); Absolute Neutrophil Count 7.45 k/cumm (1.2-6.7); Basophils % 0.2; Eosinophils % 1.1; HCT 41.7 % (36.0-46.0); HGB 14.3 g/dL (12.0-15.5); Immature Grans % 0.2 %; Mean Corp. HGB Concentration 34.3 g/dL (32.0-36.0); Mean Corpuscular Hemoglobin 30.5 pg (27.0-33.0); Mean Corpuscular Volume 88.9 fL (80-95); Mean Platelet Volume 8.9 fL (8.0-11.0); Neutrophils % 80.5; Platelet Count 285 x1000/uL (130-400); RBC 4.69 m/cumm (4.00-5.20); RBC Distribution Width 12.5 % (11.7-14.6); White Blood Cell Count 9.25 k/cumm (4.4-10.8)
[2019-11-12 11:15] LABS: ALT 22 U/L (14-59); AST 21 U/L (15-37); Alkaline Phosphatase 86 U/L (46-116); Anion Gap 6.7 mmol/L (3-11); BUN 10 mg/dL (7-18); Bilirubin, Total 0.4 mg/dL (0.2-1.0); CO2 27.3 mmol/L (21.0-32.0); CREATININE 1.03 mg/dL (0.55-1.02); Calcium 8.7 mg/dL (8.5-10.1); Chloride 104 mmol/L (98-107); Glucose 118 mg/dL (74-106); Lipase 136 U/L (73-393); Sodium 138 mmol/L (136-145); Total Protein 7.5 g/dL (6.4-8.2)
[2019-11-12] MEDS: Normal Saline 1,000 ML 1000 ML IV (13:27)
== END 2019-11-12 13:37 | disposition home or self-care (01) ==
PROVIDERS: Emergency Provider Emergency Medicine; PCP Nurse Practitioner Family
DX: K52.89 Other specified noninfective gastroenteritis and colitis (principal); R45.4 Irritability and anger; K51.50 Left sided colitis without complications
CPT/HCPCS: 36415; 80053; 83690; 96361; 96365; 96375; 99284; 99285; 74019; 74177; 85025; J1100; J1885; J2060; J3490; J7042

== ENCOUNTER 2019-11-12 15:20 | Emergency (ER) | payer MEDICAID, SELFPAY ==
--- NOTE | 2019-11-12 15:21 | DI.RAD_ITS ---
EXAM: 2D digital imaging was performed. CLINICAL HISTORY: Nausea and vomiting, abdominal pain. COMPARISON: CT CT ABDOMEN PELVIS W from 11/12/2019 TECHNIQUE: Supine and uprightSupine and Lateral views of the abdomen was performed. FINDINGS: LUNG BASES: Clear. BOWEL GAS PATTERN: There is a paucity of air in the bowel. No findings to suggest obstruction. FREE AIR: None. CALCIFICATIONS: No radiopaque calcifications. OSSEOUS STRUCTURES: Normal for age. OTHER FINDINGS: None. IMPRESSION: No evidence of an acute abdomen. DATA REPOSITORY: RADIATION DOSE DELIVERED:
[2019-11-12 15:25] VITALS: BP 125/68; PULSE 100; RESP 16; TEMP 36.3; O2SAT 98
--- NOTE | 2019-11-12 15:46 | W.ED.GENAD ---
Discharge Plan Disposition Patient Disposition: HOME Condition: Improving Discharge Details Chief Complaint: Nausea/Vomit/Diar Clinical Impression: Gastroenteritis Primary Care Provider: Jessica Mohamud ED Provider: Amadeo Ozuna Home Meds and New Rx's Prescriptions: New famotidine 20 mg tablet 20 mg PO DAILY Qty: 14 RF: 0 dicyclomine 20 mg tablet 20 mg PO BID PRN (Reason: abdominal cramps) Qty: 14 RF: 0 Continued Nexplanon 68 mg implant 1 implant SBD ONCE RF: 0 albuterol sulfate 2.5 mg /3 mL (0.083 %) solution for nebulization 1.25 mg IH QID PRNRF: 0 Flovent HFA 44 mcg/actuation HFA aerosol inhaler 1 inh IH BID RF: 0 promethazine 25 mg tablet 25 mg PO TID PRN (Reason: nausea and vomiting) Qty: 10 RF: 0 citalopram [Celexa] 40 mg Tablet 40 mg PO DAILY RF: 0 Discharge Instructions Instructions: Gastroenteritis (ED) Additional Instructions: May use the previously prescribed Phenergan as needed for nausea. Home to rest this evening and continue small, frequent sips of fluids. May use Bentyl as needed for abdominal cramps and we will have you restart your famotidine once daily for at least the next 7 days time. Return if you have a fever, abdominal bloating, or any other acute concerns. May use Ativan tonight x1 if needed for persistent nausea. Medical Decision Making 29-year-old female presents from home after visit to the ER earlier in the day when she responded well to fluids and antiemetics for presumed gastroenteritis. She states after leaving the hospital she developed recurrent crampy abdominal pain and vomited her prescribed Phenergan. She remains afebrile with stable vital signs. Labs obtained at previous visit today revealed normal LFTs, unremarkable CBC and chemistries that noted slightly elevated creatinine at 1.03. Patient was given IV fluids and antiemetic along with a small aliquot of ketorolac for pain. I reviewed her records which do show [address] scans and previous episodes of colitis. Patient underwent flat and upright abdominal x-ray with no evidence of obstruction or free air, there is a paucity of bowel gas which was seen on comparison exam. Patient now relates that she is allergic to pineapple and believes she did ingest pineapple last night. There is a consideration of mild allergic reaction. Patient states she does not tolerate steroids well and therefore was given a single half dose of dexamethasone as well as Mylanta for some mild complaints of heartburn. Following these interventions and further dextrose containing fluid resuscitation, the patient did have some initial improvement and then with recurrent upper abdominal pain and nausea. She has a history of colitis, does have a risk for bowel obstruction, and despite a number of previous CT scans was referred for advanced imaging given the nonspecific findings on x-ray and persistence of pain. CT reveals mild left sided colitis with mild wall edema. This is similar presentation to that she has had in the past with good recovery in the outpatient setting. She requests, and I do feel is reasonable, to have an additional dose of Ativan for home tonight. She is stable and improving at this time. HPI General Mode of arrival: ambulatory. Date/Time Provider Initiated Documentation: 11/12/19 15:21. Limitations to Documentation: no limitations. Information obtained by: patient. History of Present Illness 29 year old F presents to the emergency department with the chief complaint of Recurrent vomiting and loose stools, described as similar to prior episodes, Quality is described as constant, and is localized to the abdomen. Patient reports no radiation. Patient started experiencing this hour(s) and it has been constant. No relieving factors improve symptom(s), No exacerbating factors reported . Patient notes loss of appetite and nausea/vomiting. Patient did receive the following treatments prior to arrival, other (Phenergan which she states she again vomited) Related Data Home Medications Medication Instructions Recorded Confirmed albuterol sulfate 1.25 mg IH QID PRN 10/11/18 11/12/19 etonogestrel 68 mg subdermal 1 implant SBD ONCE 10/11/18 11/12/19 implant fluticasone propionate 44 1 inh IH BID 10/11/18 11/12/19 mcg/actuation HFA aerosol inhaler citalopram [Celexa] 40 mg PO DAILY 10/22/19 11/12/19 dicyclomine 20 mg PO BID PRN #14 tab 11/12/19 famotidine 20 mg PO DAILY #14 tab 11/12/19 promethazine 25 mg PO TID PRN #10 tab 11/12/19 Previous Rx's Medication Instructions Recorded dicyclomine 20 mg PO BID PRN #14 tab 11/12/19 famotidine 20 mg PO DAILY #14 tab 11/12/19 promethazine 25 mg PO TID PRN #10 tab 11/12/19 Allergies Allergy/AdvReac Type Severity Reaction Status Date / Time chocolate flavor Allergy Severe Painful Verified 11/12/19 10:14 tongue lamotrigine Allergy Unknown Verified 11/12/19 10:14 gluten AdvReac Severe Gi Upset Verified 11/12/19 10:14 ondansetron [From Zofran] AdvReac Intermediate Other (See Verified 11/12/19 10:14 Comment) lactase [From Dairy Aid] AdvReac Verified 11/12/19 10:14 peanut AdvReac Verified 11/12/19 10:14 pineapple AdvReac Verified 11/12/19 10:14 Yeast AdvReac Verified 11/12/19 10:14 Environmental Allergy Intermediate Runny Uncoded 11/12/19 10:14 nose, sneezing cottage cheese AdvReac Uncoded 11/12/19 10:14 wheat AdvReac Uncoded 11/12/19 10:14 General Stated Complaint: Nausea/Vomit/Diar ALL: 3 Review of Systems Narrative: 4 systems reviewed and otherwise negative [facility] Medical History Acute appendicitis (Inactive) MARK positive (Acute) Asthma, intermittent (Acute) Colitis (Acute) Diarrhea (Acute) Dizziness (Acute) Esophageal reflux (Chronic) Fatty liver (Acute) Fibromyalgia (Acute) Headache (Acute) Hip pain, bilateral (Acute) History of gluten intolerance (Acute) History of IBS (Acute) History of ITP (Chronic) Hypokalemia (Acute) Immune thrombocytopenic purpura (Acute) Leg pain, bilateral (Acute) Maculopapular rash (Acute) Menorrhagia (Acute) Migraine Murmur, cardiac (Acute) Obesity (Chronic) Post traumatic stress disorder (PTSD) (Acute) Raynauds syndrome (Acute) Rectal mass (Acute) Sinus tachycardia (Acute) Stress incontinence (Acute) Subclinical hypothyroidism (Acute) Surgical History H/O colonoscopy (Chronic) x 2 H/O esophagogastroduodenoscopy (Chronic) x 2 S/P laparoscopic appendectomy (Acute ~07/20/19) Social History Smoking/Tobacco Use Status: Former Tobacco Use Alcohol Intake: never Drug use: Never Substance use type: marijuana Do you feel safe at home: Yes Do you feel safe in your relationship?: Yes Exam Narrative Exam Narrative: GEN: awake, alert, oriented 3. Pleasant, well groomed, interactive. HEAD: Normocephalic, atraumatic ENT: Mucous membranes moist, oropharynx unremarkable, External ear exam unremarkable EYES: PERRL, EOMI NECK: Full ROM, no TOE, no menigismus CHEST/RESP: Nontender, clear to auscultation bilateral, no wheeze/rhonchi/rales CARDIOVASCULAR: RRR, no murmur, rub na. 2+ Rad pulse bilateral ABDOMEN: Soft, mild diffusely tender without rebound or guarding, no mass. +Bowel sounds EXT: Full ROM, no edema, no rash Neuro: Grossly normal neurologic exam, conversant, interactive. Psych: Speech fluent, thoughts congruent, affect normal Course Vital Signs Vital signs: Vital Signs Temperature 36.3 C L 11/12/19 15:25 Pulse 100 H 11/12/19 15:25 Respiratory Rate 16 11/12/19 15:25 Blood Pressure 125/68 11/12/19 15:25 Pulse Oximetry 98 11/12/19 15:25 Temperature 36.3 C L 11/12/19 15:25 Temperature Source Tympanic 11/12/19 15:25 Pulse 100 H 11/12/19 15:25 Respiratory Rate 16 11/12/19 15:25 Respiratory Effort Non-Labored 11/12/19 15:27 Blood Pressure 125/68 11/12/19 15:25 Blood Pressure Position Sitting 11/12/19 15:25 Pulse Oximetry 98 11/12/19 15:25 Oxygen Delivery Method Room Air 11/12/19 15:25 Oxygen Flow Rate 0 11/12/19 15:25 Pain Level 4 11/12/19 15:25
[2019-11-12] MEDS: DEXTROSE 5%-0.9% SALINE 1,000 ML 150 ML IV (16:03)
[2019-11-12] MEDS: Ketorolac 15 MG/ML VIAL IVP (16:03)
--- NOTE | 2019-11-12 16:28 | DI.VRAD_ITS ---
PROCEDURE INFORMATION: Exam: XR Abdomen, 2 Views Exam date and time: 11/12/2019 4:23 PM Age: 29 years old Clinical indication: Abdominal pain TECHNIQUE: Imaging protocol: XR of the abdomen. Views: 2 Views. COMPARISON: CR XR ABD FLAT UPRIGHT PA CHEST 10/22/2019 10:31 AM FINDINGS: Gastrointestinal tract: There is a paucity of small and large bowel gas present on the exam. Overall appearance is unchanged from prior study. Previously seen periumbilical ring is no longer identified. Intraperitoneal space: Normal. No free air. Bones/joints: Unremarkable for age. IMPRESSION: Paucity of small bowel gas, nonspecific. This was seen previously as well. No definite acute abnormality noted. COMMENTS: Preliminary interpretation is based on receipt of 3 image(s). A final report will be issued subsequently. Dictated and Authenticated by: Katarina García MD. Ordering:DEVORA Childs MD
[2019-11-12] MEDS: Dexamethasone 4 MG/ML VIAL 5 MG IVP (17:16)
[2019-11-12] MEDS: Famotidine 20 MG TAB PO (18:09)
[2019-11-12] MEDS: Dicyclomine 10 MG CAP PO (18:09)
--- NOTE | 2019-11-12 18:30 | DI.CT_ITS ---
EXAM: CT ABDOMEN PELVIS W CLINICAL HISTORY: Persistent abd pain, vomiting, hx colitis TECHNIQUE: Imaging Protocol: Axial computed tomography images with coronal and sagittal reformatted images were created and reviewed CONTRAST MATERIAL: Intravenous: Omnipaque 350 Contrast volume:100 mL Oral: No COMPARISON: CT CT ABDOMEN PELVIS W from 04/19/2019 FINDINGS: ABDOMEN: Lung Bases: Normal where visualized. Liver: Normal density. No measurable mass. Portal, Superior Mesenteric, and Splenic Veins: Unremarkable. Gallbladder and Biliary Tract: No radiodense calculus or dilation. Pancreas: Normal density, no abnormal calcifications or inflammatory process. Spleen: Normal. Adrenals: No masses seen. Kidneys: Normal size, contour and axis. No radiodense stones or obstructive uropathy. No masses seen. Abdominal Aorta: Abdominal portion non-dilated. Bowel: No evidence of obstruction. Mild thickening of the wall of the distal transverse colon, desce nding colon and proximal sigmoid colon. While this may be due to underdistention, an infectious or i nflammatory colitis cannot be excluded. Patient appears to be status post appendectomy. Peritoneal Cavity: No ascites, collection or mesenteric inflammatory response. Lymph Nodes: Within normal limits. Bones: Unremarkable. Soft Tissues: Unremarkable. PELVIS: Bladder: Symmetric distention, no gross wall thickening. Reproductive Organs: Unremarkable as visualized. Lymph Nodes: Within normal limits. Bones: Within normal limits. IMPRESSION: Question of mild thickening of the wall of the distal transverse colon, descending colon and proximal sigmoid colon. While this may be due to underdistention, an infectious or inflammatory colitis chai ot be excluded. RADIATION DOSE DELIVERED: Total DLP DATA REPOSITORY: All CT scans at this facility are submitted to the National Radiology Data Registry (NRDR) Dose Index Registry (DIR) with the [employer] (A[employer]). RADIATION OPTIMIZATION: All CT scans at this facility use at least one of these dose optimization te chniques: automated exposure control; mA and/or kV adjustment per patient size (includes targeted exa ms where dose is matched to clinical indication); or iterative reconstruction.
[2019-11-12 18:34] VITALS: BP 126/82; PULSE 79; RESP 18; O2SAT 98
--- NOTE | 2019-11-12 18:34 | NUR.NOTE ---
pt reports nausa returning Nursing Note:
[2019-11-12] MEDS: LORazepam 2 MG/ML VIAL 0.5 MG IVP (18:40)
[2019-11-12 18:45] VITALS: BP 116/65; PULSE 77; RESP 16; TEMP 37; O2SAT 100
[2019-11-12] MEDS: Normal Saline - Diluent 50 ML VIAL IV (19:17)
[2019-11-12] MEDS: Omnipaque 350 MG/ML 100 ML BTL IJ (19:17)
--- NOTE | 2019-11-12 19:37 | DI.VRAD_ITS ---
PROCEDURE INFORMATION: Exam: CT Abdomen And Pelvis With Contrast Exam date and time: 11/12/2019 7:09 PM Age: 29 years old Clinical indication: Abdominal pain; Generalized; Patient HX: Persistent abd pain, vomiting; Additional info: HX colitis TECHNIQUE: Imaging protocol: Computed tomography of the abdomen and pelvis with intravenous contrast. COMPARISON: CT ABDOMEN PELVIS W 04/19/2019 6:17 PM FINDINGS: Mediastinum: Small hiatal hernia noted. Liver: Normal. No mass. Gallbladder and bile ducts: Normal. No calcified stones. No ductal dilation. Pancreas: Normal. No ductal dilation. Spleen: Normal. No splenomegaly. Adrenals: Normal. No mass. Kidneys and ureters: Normal. No hydronephrosis. Stomach and bowel: There is mild wall edema involving the distal transverse colon, descending colon, sigmoid and rectum. Mild right-sided colonic involvement is not excludable. Appendix: Status post appendectomy. Intraperitoneal space: Unremarkable. No free air. No significant fluid collection. Vasculature: Unremarkable. No abdominal aortic aneurysm. Lymph nodes: Unremarkable. No enlarged lymph nodes. Bladder: Unremarkable as visualized. Reproductive: Unremarkable as visualized. Bones/joints: Unremarkable. No acute fracture. Soft tissues: Unremarkable. IMPRESSION: Findings consistent with left-sided colitis. COMMENTS: Preliminary interpretation is based on receipt of 1232 image(s). A final report will be issued subsequently. Dictated and Authenticated by: Katarina García MD. Ordering:DEVORA Childs MD
[2019-11-12 19:59] VITALS: BP 118/68; PULSE 66; RESP 16; TEMP 36.6; O2SAT 98
--- NOTE | 2019-11-14 10:42 | NUR.NOTE ---
Nursing Note: Received call from [facility] stating pt brought prescription for Famotidine that was not signed by the Prescriber. Verbal order given for Famotidine 20mg daily QTY #14 no refills as prescribed by Dr. Ozuna.
== END 2019-11-12 20:00 | disposition home or self-care (01) ==
PROVIDERS: Emergency Provider Emergency Medicine; PCP Nurse Practitioner Family
DX: K51.50 Left sided colitis without complications (principal)
CPT/HCPCS: 36415; 96361; 96365; 96375; 99285; 74019; 74177; 99284; J1100; J1885; J2060; J3490; J7042

== ENCOUNTER 2019-12-11 08:22 | Emergency (ER) | payer MEDICAID, SELFPAY ==
[2019-12-11] VITALS (14 sets, daily range): BP systolic 99–131; BP diastolic 63–79; PULSE 53–100; RESP 10–28; TEMP 37; O2SAT 98–100
--- NOTE | 2019-12-11 08:28 | ED.GENADUL_ITS ---
Discharge Plan Disposition Patient Disposition: HOME Condition: Good Discharge Details Chief Complaint: Nausea/Vomit/Diar Clinical Impression: Nausea & vomiting Primary Care Provider: Jessica Mohamud ED Provider: Yolie Suarez Home Meds and New Rx's Prescriptions: New promethazine [Promethegan] 25 mg suppository 25 mg DC Q6H PRN (Reason: nausea and vomiting) Qty: 12 RF: 0 Continued Nexplanon 68 mg implant 1 implant SBD ONCE RF: 0 albuterol sulfate 2.5 mg /3 mL (0.083 %) solution for nebulization 1.25 mg IH QID PRNRF: 0 Flovent HFA 44 mcg/actuation HFA aerosol inhaler 1 inh IH BID RF: 0 promethazine 25 mg tablet 25 mg PO TID PRN (Reason: nausea and vomiting) Qty: 10 RF: 0 citalopram [Celexa] 40 mg Tablet 40 mg PO DAILY RF: 0 famotidine 20 mg tablet 20 mg PO DAILY Qty: 14 RF: 0 dicyclomine 20 mg tablet 20 mg PO BID PRN (Reason: abdominal cramps) Qty: 14 RF: 0 Discharge Instructions Instructions: Acute Nausea and Vomiting (ED) Additional Instructions: Continue to encourage frequent sips of fluids. Please use your Phenergan suppositories as previously advised. Please follow-up with primary care this week for reevaluation if not improved. If you develop abdominal pain, have blood in your vomit, or unable to stay hydrated, fevers or other new/worsening symptom please seek care urgently once again. You will need outpatient COVID-19 testing. Order has been placed. This will be performed in the outpatient testing site. In the interim, please continue to quarantine. Stand Alone Forms: POSITIVE COVID-19/TO BE TESTED Referrals: Jessica Mohamud [Primary Care Provider] - Discharge Data Discharge Date/Time-TO BE ENTERED AT DEPARTURE: 12/11/19 11:40 Medical Decision Making Patient is a 29-year-old female presenting today for recurrent nausea and vomiting symptoms x2 days. Patient has been here multiple times for gastroenteritis in the past. She reports she had multiple endoscopies and colonoscopies without diagnosis of her chronic recurrent abdominal upset. She reports that gastroenterology thinks I am crazy. She does report that she does have a history of anxiety but states that she has been being treated for this. She reports that typically when she has flares it manifested primarily left-sided abdominal discomfort however, she reports that for the past 2 days she has been having nausea and vomiting without pain. States that she vomited x1 this morning. Denies any hematemesis. Denies any fevers but does report that she is had chills. No change in bowel habits. Patient did just recently traveled to [place] to visit her sister. Came back 4 days ago. No known sick contacts. Denies any cough or other COVID-19 symptoms. Patient reports that she used rectal Phenergan last night with relief of her symptoms. Has not used any today. On exam, patient is resting comfortably. She appears nontoxic. Vital signs significant for heart rate of 95. Patient is not hypotensive. Lungs are clear. Normal cardiac exam. Abdomen is benign with no tenderness or peritoneal findings noted. Normal bowel sounds. Sounds to be recurrence of patient's chronic nausea and vomiting. Unclear etiology is so much is been ruled out by gastroenterology historically. This may also be viral versus bacterial etiology in the more acute setting. I did consider COVID-19 and plan for outpatient testing particularly given her recent travel. I see no evidence of acute abdominal pathology. Plan for the laboratory letter evaluation, hydration and treatment with Phenergan which essentially worked well for the patient historically. Labs were reviewed. No leukocytosis. Patient's not anemic. Normal CBC. Chemistry significant for mildly low potassium of 3.4. Has I am concerned that the patient may continue to drop her potassium if the vomiting persists, will replenish with 10 IV here. Creatinine is slightly elevated at 1.09. Patient is receiving IV hydration, will receive a total of 2 L. Labs otherwise without significant abnormality. Patient did have a small amount of leukocyte esterase in her urinalysis she does have moderate epithelial cells and few bacteria. This seems to be primarily associated with contamination patient denies any evidence to suggest urinary tract infection. Patient has not exhibited any vomiting here. She reports that she continues have some mild nausea although it is markedly improved. States that Viscous Lidocaine and Mylanta often works well for her. Patient given GI cocktail. Symptoms improved. Patient feels ready for discharge. Patient is hemodynamically stable. Pulse of 79. She is able to sip on water and hold this down with any evidence of recurrent symptoms. Patient to be discharged home with recurrent nausea and vomiting. I did advise close follow-up with primary care. Patient does have frustrated with her lack of progress with gastroenterology. I am hoping a primary care may have other idea for her continued nausea and vomiting. She has had success with rectal Phen ergan historically and has run out of this at home. I will refill this for her today. Patient was given return precautions. All of her questions or concerns were addressed and she is in agreement this plan. HPI General Mode of arrival: ambulatory . Date/Time Provider Initiated Documentation: 12/11/19 08:29 . Limitations to Documentation: no limitations . Information obtained by: patient and RN notes reviewed . History of Present Illness 29 year old F presents to the emergency department with the chief complaint of nausea and vomiting, described as moderate and similar to prior episodes, with intensity rated at 4. Quality is described as other (denies pain, reports nausea only), and is localized to the abdomen. Patient reports no radiation. Patient started experiencing this day(s) and it has been constant. Medication improves symptom(s), (phenergan supository) No exacerbating factors reported . Patient notes fever/chills (reports chills), loss of appetite (has been hydrating but denies food intake) and nausea/vomiting (last vomited at 0700); denies cough, diaphoresis, rash and shortness of breath. Patient did receive the following treatments prior to arrival, none Related Data Home Medications Medication Instructions Recorded Confirmed albuterol sulfate 1.25 mg IH QID PRN 10/11/18 12/11/19 etonogestrel 68 mg subdermal 1 implant SBD ONCE 10/11/18 12/11/19 implant fluticasone propionate 44 1 inh IH BID 10/11/18 12/11/19 mcg/actuation HFA aerosol inhaler citalopram [Celexa] 40 mg PO DAILY 10/22/19 12/11/19 dicyclomine 20 mg PO BID PRN #14 tab 11/12/19 12/11/19 famotidine 20 mg PO DAILY #14 tab 11/12/19 12/11/19 promethazine 25 mg PO TID PRN #10 tab 11/12/19 12/11/19 promethazine [Promethegan] 25 mg DC Q6H PRN #12 each 12/11/19 Previous Rx's Medication Instructions Recorded dicyclomine 20 mg PO BID PRN #14 tab 11/12/19 famotidine 20 mg PO DAILY #14 tab 11/12/19 promethazine 25 mg PO TID PRN #10 tab 11/12/19 promethazine [Promethegan] 25 mg DC Q6H PRN #12 each 12/11/19 Allergies Allergy/AdvReac Type Severity Reaction Status Date / Time chocolate flavor Allergy Severe Painful Verified 12/11/19 08:34 tongue lamotrigine Allergy Unknown Verified 12/11/19 08:34 gluten AdvReac Severe Gi Upset Verified 12/11/19 08:34 ondansetron [From Zofran] AdvReac Intermediate Other (See Verified 12/11/19 08:34 Comment) lactase [From Dairy Aid] AdvReac Verified 12/11/19 08:34 peanut AdvReac Verified 12/11/19 08:34 pineapple AdvReac Verified 12/11/19 08:34 Yeast AdvReac Verified 12/11/19 08:34 Environmental Allergy Intermediate Runny Uncoded 12/11/19 08:34 nose, sneezing cottage cheese AdvReac Uncoded 12/11/19 08:34 wheat AdvReac Uncoded 12/11/19 08:34 General ALL: 3 Review of Systems Constitutional Constitutional: Reports as per HPI, Reports chills, Denies fatigue, Denies fever(s), Denies headache(s) and Reports poor appetite ENT Ears, Nose, Mouth, and Throat: Denies headache(s) Cardiovascular Cardiovascular: Reports as per HPI, Denies chest pain and Denies dyspnea Respiratory Respiratory: Reports as per HPI, Denies cough and Denies dyspnea Gastrointestinal Gastrointestinal: Reports as per HPI, Denies abdominal pain, Denies melena, Denies bloating, Denies hematochezia, Denies coffee ground emesis, Denies constipation, Denies cramping, Reports nausea and Reports vomiting Musculoskeletal Musculoskeletal: Reports as per HPI and Denies back pain Integumentary/Breasts Skin/Breast: Reports as per HPI and Denies rash Neurologic Neurologic: Reports as per HPI and Denies headache(s) Endocrine Endocrine: Denies fatigue PFSH Social History Smoking/Tobacco Use Status: Former Tobacco Use Alcohol Intake: current Alcohol Intake frequency: holidays/special occasions only Drug use: Occasionally Substance use type: marijuana Do you feel safe at home: Yes Do you feel safe in your relationship?: Yes Exam Const General: cooperative, healthy appearing, comfortable, no acute distress and well developed Nutritional Appearance: average body habitus and well nourished Orientation: alert and awake HENMO Head: normal to inspection Mouth: mucous membranes dry (patient appears dry) Resp Effort & Inspection: normal respiratory effort, able to speak in complete sentences and no respiratory distress Auscultation: clear to auscultation bilaterally, no rales, no rhonchi and no wheezes Cardio Rate: regular rate Rhythm: regular rhythm Heart Sounds: S1 normal and S2 normal GI Inspection: normal to inspection Palpation: soft, no hepatosplenomegaly, not firm, not rigid and nontender Percussion: normal to percussion Auscultation: normal bowel sounds Back/Spine/Pelvis Back: no CVA tenderness Skin General skin exam: no rashes or lesions noted Trauma: no lacerations or abrasions Neuro General: patient alert and patient awake Cognition: normal cognition Speech: speech normal Gait: normal gait Psych Appearance: grossly normal and well kempt Mental Status: mental status grossly normal Speech and Movement: speech and movement normal
[2019-12-11 09:05] LABS: Abs Immature Grans 0.01 k/cumm (0.0-0.09); Absolute Basophil Count 0.03 k/cumm (0.0-0.2); Absolute Eosinophil Count 0.19 k/cumm (0.0-0.7); Absolute Lymphocyte Count 1.89 k/cumm (1.2-3.4); Absolute Monocyte Count 0.58 k/cumm (0.11-0.7); Absolute Neutrophil Count 7.14 k/cumm (1.2-6.7); Basophils % 0.3; Eosinophils % 1.9; HGB 14.9 g/dL (12.0-15.5); Immature Grans % 0.1 %; Lymphocytes % 19.2; Mean Corp. HGB Concentration 34.7 g/dL (32.0-36.0); Mean Corpuscular Hemoglobin 30.6 pg (27.0-33.0); Mean Corpuscular Volume 88.3 fL (80-95); Mean Platelet Volume 9.2 fL (8.0-11.0); Monocytes % 5.9; Neutrophils % 72.6; Platelet Count 301 x1000/uL (130-400); RBC 4.87 m/cumm (4.00-5.20); RBC Distribution Width 12.7 % (11.7-14.6); White Blood Cell Count 9.84 k/cumm (4.4-10.8)
[2019-12-11] MEDS: Normal Saline 1,000 ML 1000 ML IV (09:08)
[2019-12-11 09:18] LABS: ALT 21 U/L (14-59); AST 21 U/L (15-37); Albumin 4.4 g/dL (3.4-5.0); Alkaline Phosphatase 93 U/L (46-116); Anion Gap 10.8 mmol/L (3-11); BUN 9 mg/dL (7-18); Bilirubin, Total 0.7 mg/dL (0.2-1.0); CO2 26.2 mmol/L (21.0-32.0); CREATININE 1.09 mg/dL (0.55-1.02); Calcium 8.8 mg/dL (8.5-10.1); Chloride 101 mmol/L (98-107); Estimated GFR 58.55 (mL/min/1.73m2); Glucose 112 mg/dL (74-106); Potassium 3.4 mmol/L (3.5-5.1); Sodium 138 mmol/L (136-145)
[2019-12-11 09:20] LABS: Bilirubin Negative (Negative); Blood Negative (Negative); Clarity Clear (Clear); Glucose Negative (Negative); Ketones Negative (Negative); Leukocyte Esterase Small (Negative); Nitrite Negative (Negative); Urobilinogen 0.2 EU/dL (Up TO 0.2); pH 5.5 (5-8)
[2019-12-11 09:34] LABS: Bacteria Few HPF (Negative); C & S Indicated? No/Sq. Contamination; Casts Negative LPF (Negative); Crystals Negative HPF (Negative); Epithelial Cells Moderate HPF (Negative); Mucus Trace (Negative); RBC 0-2 HPF (0-2)
[2019-12-11] MEDS: POTASSIUM CHLORIDE 10 MEQ/100 ML BAG 100 MEQ IVPB (09:52)
[2019-12-11 09:56] LABS: Lipase 139 U/L (73-393)
[2019-12-11] MEDS: Lactated Ringers 1,000 ML 1000 ML IV (10:18)
== END 2019-12-11 11:40 | disposition home or self-care (01) ==
PROVIDERS: Emergency Provider Physician Assistant; PCP Nurse Practitioner Family
DX: R11.2 Nausea with vomiting, unspecified (principal); E87.6 Hypokalemia
CPT/HCPCS: 36415; 80053; 83690; 93005; 96361; 96365; 96367; 99285; 81003; 81015; 85025; 93010; 99284; J3480

== ENCOUNTER 2019-12-12 07:35 | Observation (INO) | payer MEDICAID, SELFPAY ==
[2019-12-12] VITALS (19 sets, daily range): BP systolic 111–122; BP diastolic 61–76; PULSE 68–94; RESP 10–20; TEMP 36.2–36.9; O2SAT 95–100
--- NOTE | 2019-12-12 08:22 | ED.GENADUL_ITS ---
Discharge Plan Disposition Condition: Good Discharge Details Chief Complaint: Nausea/Vomit/Diar Admit Date/Time: 12/12/19 10:32 Admit Provider: Hemal Mccabe Attending Provider: Tony Dozier Primary Care Provider: Jessica Mohamud ED Provider: Chantale Phelps Discharge Instructions Activity:: Activity as Tolerated Equipment/Supplies:: No Equipment Needed Diet:: As Tolerated Discharge Orders Discharge Orders: Discharge Order (Routine); Ordered 12/14/19 Ordered By: Libertad Chen Discharge Data Discharge Date/Time-TO BE ENTERED AT DEPARTURE: 12/12/19 11:17 Medical Decision Making Daniela Ruiz is a 29-year-old woman with a history of asthma, 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 On exam patient is well and nontoxic-appearing. Abdominal exam benign. Concern for dehydration, electrolyte derangement, other. Exam/history at this time is not consistent with small bowel obstruction, acute surgical abdominal emergency, acute aortic pathology, acute coronary syndrome, sepsis. Do not suspect COVID-19 at this time. Plan for screening labs, EKG, urinalysis, urine , IV fluid hydration, IV Reglan. Will monitor and reassess. Labs reviewed, potassium 3.1. Yesterday potassium 3.4, potassium was repleted at that time. CBC unremarkable, no leukocytosis. Urinalysis shows ketones, high specific gravity. Urine test negative per nursing. Plan for admission for failed trial PO anti-emetics at home. Clinical Impression: intractable vomiting, hypokalemia Disposition: [facility] inpatient Medical Records Medical records reviewed: Yes I reviewed the patient's medical records. Lab Data Lab results reviewed: Yes I reviewed the patient's lab results. ECG Data Attestation: I personally reviewed and interpreted this ECG (s) as follows: Interpretation: EKG shows sinus rhythm at 76, normal axis, no acute ischemic changes, QTC 456, nondiagnostic EKG HPI General Mode of arrival: ambulatory . Date/Time Provider Initiated Documentation: 12/12/19 07:41 . Limitations to Documentation: no limitations . Information obtained by: patient, RN notes reviewed and old records reviewed . 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 Symptoms started 3 days ago. Patient reports that she has had chronic intermittent episodes of vomiting, diarrhea, and abdominal pain over the past 4 to 5 years. She has had significant work-up for this, including CT scans, upper and lower endoscopy with no etiology identified at this time. Per patient and record review, patient was seen here yesterday for same. In the emergency department she was hydrated, potassium 3.4 was repleted, and patient was discharged home with Phenergan suppositories. Patient reports that she took suppositories as prescribed, and has had no improvement in vomiting since discharge. She reports that she has not been able to hold down any fluids. Patient reports abdominal pain is unchanged since onset 3 days ago. Patient reports that symptoms are typical of her usual chronic vomiting/diarrhea/abdominal pain. She denies any other pain, fever, cough, shortness of breath, numbness, weakness, rash. Patient reports that she uses marijuana daily to manage her symptoms. Related Data Home Medications Medication Instructions Recorded Confirmed albuterol sulfate 1.25 mg IH QID PRN 10/11/18 12/12/19 etonogestrel 68 mg subdermal 1 implant SBD ONCE 10/11/18 12/12/19 implant fluticasone propionate 44 1 inh IH BID 10/11/18 12/12/19 mcg/actuation HFA aerosol inhaler dicyclomine 20 mg PO BID PRN #14 tab 11/12/19 12/12/19 famotidine 20 mg PO DAILY #14 tab 11/12/19 12/12/19 promethazine 25 mg PO TID PRN #10 tab 11/12/19 12/11/19 promethazine [Promethegan] 25 mg MT Q6H PRN #12 each 12/11/19 12/12/19 mirtazapine 45 mg PO QHS 12/12/19 12/12/19 escitalopram oxalate [Lexapro] 20 mg PO DAILY #30 tab 12/14/19 nystatin 1 applic TOPICAL TID #30 gm 12/14/19 potassium chloride 10 meq PO DAILY #30 tab 12/14/19 Previous Rx's Medication Instructions Recorded dicyclomine 20 mg PO BID PRN #14 tab 11/12/19 famotidine 20 mg PO DAILY #14 tab 11/12/19 promethazine 25 mg PO TID PRN #10 tab 11/12/19 promethazine [Promethegan] 25 mg MT Q6H PRN #12 each 12/11/19 escitalopram oxalate [Lexapro] 20 mg PO DAILY #30 tab 12/14/19 nystatin 1 applic TOPICAL TID #30 gm 12/14/19 potassium chloride 10 meq PO DAILY #30 tab 12/14/19 Allergies Allergy/AdvReac Type Severity Reaction Status Date / Time chocolate flavor Allergy Severe Painful Verified 12/12/19 07:45 tongue lamotrigine Allergy Unknown Verified 12/12/19 07:45 gluten AdvReac Severe Gi Upset Verified 12/12/19 07:45 ondansetron [From Zofran] AdvReac Intermediate Other (See Verified 12/12/19 07:45 Comment) lactase [From Dairy Aid] AdvReac Verified 12/12/19 07:45 peanut AdvReac Verified 12/12/19 07:45 pineapple AdvReac Verified 12/12/19 07:45 Yeast AdvReac Verified 12/12/19 07:45 Environmental Allergy Intermediate Runny Uncoded 12/12/19 07:45 nose, sneezing cottage cheese AdvReac Uncoded 12/12/19 07:45 wheat AdvReac Uncoded 12/12/19 07:45 General Stated Complaint: Nausea/Vomit/Diar ALL: 3 Review of Systems Narrative: Constitutional: denies fevers (reports temp of 99 last night) Eyes: denies eye pain ENT: denies ear pain, dental pain, sore throat Cardiovascular: denies chest pain Respiratory: denies SOB, cough GI: Denies bloody stool, bloody emesis, dark stool, constipation, reports abdominal pain, vomiting, diarrhea : denies flank pain MSK: denies back pain, neck pain, arthralgias, myalgias Skin: denies rash Neuro: denies headaches, numbness, weakness PFSH Medical History (Updated 12/12/19 @ 16:33 by Hemal Mccabe) Acute appendicitis (Inactive) MARK positive (Acute) Asthma, intermittent (Chronic) Colitis (Acute) Diarrhea (Acute) Dizziness (Acute) Esophageal reflux (Chronic) Fatty liver (Acute) Fibromyalgia (Acute) Headache (Acute) Hip pain, bilateral (Acute) History of gluten intolerance (Acute) History of IBS (Acute) History of ITP (Chronic) Hypokalemia (Acute) Immune thrombocytopenic purpura (Acute) Leg pain, bilateral (Acute) Maculopapular rash (Acute) Menorrhagia (Acute) Migraine Murmur, cardiac (Acute) Obesity (Chronic) Post traumatic stress disorder (PTSD) (Acute) Raynauds syndrome (Acute) Rectal mass (Acute) Sinus tachycardia (Acute) Stress incontinence (Acute) Subclinical hypothyroidism (Acute) Surgical History H/O colonoscopy (Chronic) x 2 H/O esophagogastroduodenoscopy (Chronic) x 2 S/P laparoscopic appendectomy (Acute ~01/15/19) Family History Mother Polyp of colon Grandmother Diabetes Polyp of colon aunt Diabetes Polyp of colon uncle Diabetes Polyp of colon Social History (Updated 12/12/19 @ 16:22 by Hemal Mccabe) Smoking/Tobacco Use Status: Former Tobacco Use Alcohol Intake: current Alcohol Intake frequency: holidays/special occasions only Details: She denies use over the past week Drug use: Occasionally Substance use type: marijuana Details: She denies use for at least the past 6 days Do you feel safe at home: Yes Do you feel safe in your relationship?: Yes Additional Social history: Lives in [place] with her fianc? and 2 school-aged children. 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 Exam Narrative Exam Narrative: Constitutional: well and [id number], pleasant, conversing normally HENT: head atraumatic/normocephalic/normal inspection, mucous membranes moist Eyes: conjunctiva normal, sclera normal, pupils 3mm b/l Neck: no stridor, normal ROM, trachea midline Resp: normal work of breathing Cardio: normal rate, normal rhythm GI: abdomen soft, non-tender, non-distended Back: normal inspection, no rash Skin: warm, dry, normal color, no rash Neuro: alert, not altered, grossly non-focal, normal tone Ext: no edema, moving all extremities equally Psych: normal mood, normal affect, normal behavior Course Vital Signs Vital signs: Vital Signs Temperature 36.2 C L 12/12/19 07:39 Pulse 94 H 12/12/19 07:39 Respiratory Rate 18 12/12/19 07:39 Blood Pressure 122/74 12/12/19 07:39 Pulse Oximetry 100 12/12/19 07:39 Temperature 36.2 C L 12/12/19 07:39 Temperature Source Temporal Artery Scan 12/12/19 07:39 Pulse 94 H 12/12/19 07:39 Respiratory Rate 18 12/12/19 07:39 Respiratory Effort Non-Labored 12/12/19 07:48 Blood Pressure 122/74 12/12/19 07:39 Blood Pressure Position Sitting 12/12/19 07:39 Pulse Oximetry 100 12/12/19 07:39 Oxygen Delivery Method Room Air 12/12/19 07:39 Oxygen Flow Rate 0 12/12/19 07:39 Pain Level 6 12/12/19 07:39
[2019-12-12 08:41] LABS: Abs Immature Grans 0.01 k/cumm (0.0-0.09); Absolute Basophil Count 0.03 k/cumm (0.0-0.2); Absolute Eosinophil Count 0.11 k/cumm (0.0-0.7); Absolute Lymphocyte Count 1.98 k/cumm (1.2-3.4); Absolute Monocyte Count 0.52 k/cumm (0.11-0.7); Absolute Neutrophil Count 6.24 k/cumm (1.2-6.7); Basophils % 0.3; Eosinophils % 1.2; HCT 42.3 % (36.0-46.0); HGB 14.4 g/dL (12.0-15.5); Immature Grans % 0.1 %; Lymphocytes % 22.3; Mean Corpuscular Hemoglobin 30.2 pg (27.0-33.0); Mean Corpuscular Volume 88.7 fL (80-95); Mean Platelet Volume 9.4 fL (8.0-11.0); Monocytes % 5.8; Neutrophils % 70.3; Platelet Count 268 x1000/uL (130-400); RBC 4.77 m/cumm (4.00-5.20); RBC Distribution Width 12.6 % (11.7-14.6); White Blood Cell Count 8.89 k/cumm (4.4-10.8)
[2019-12-12] MEDS: Normal Saline 1,000 ML 1000 ML IV ×2 (08:42→10:41)
[2019-12-12] MEDS: Metoclopramide 10 MG/2 ML VIAL IVP (08:47)
[2019-12-12 08:53] LABS: ALT 22 U/L (14-59); AST 22 U/L (15-37); Albumin 4.3 g/dL (3.4-5.0); Alkaline Phosphatase 85 U/L (46-116); Anion Gap 11.6 mmol/L (3-11); BUN 9 mg/dL (7-18); Bilirubin, Total 0.8 mg/dL (0.2-1.0); CO2 24.4 mmol/L (21.0-32.0); CREATININE 0.96 mg/dL (0.55-1.02); Calcium 8.9 mg/dL (8.5-10.1); Chloride 102 mmol/L (98-107); Glucose 107 mg/dL (74-106); Lipase 190 U/L (73-393); Potassium 3.1 mmol/L (3.5-5.1); Sodium 138 mmol/L (136-145); Total Protein 7.8 g/dL (6.4-8.2)
[2019-12-12 08:56] LABS: Bilirubin Small (Negative); Blood Negative (Negative); Clarity Clear (Clear); Glucose Negative (Negative); Ketones 80 mg/dL (Negative); Leukocyte Esterase Negative (Negative); Nitrite Negative (Negative); Specific Gravity >= 1.030 (1.005-1.025); Urobilinogen 0.2 EU/dL (Up TO 0.2); pH 5.5 (5-8)
[2019-12-12] MEDS: POTASSIUM CHLORIDE 20 MEQ/100 ML BAG 50 MEQ IVPB ×2 (09:16→12:38)
[2019-12-12] MEDS: POTASSIUM CHLORIDE/D5-0.9%NACL 1,000 ML 150 MEQ IV ×2 (11:45→18:32)
--- NOTE | 2019-12-12 16:10 | HPE_ITS ---
Date of service: 12/12/19 Time of Service: 15:41 Assessment and Plan Assessment and plan (1) Dehydration: Status: Acute Assessment and plan: Dehydration is critical reason for admission, given she failed outpatient management for the emergency room yesterday. Recurrent fluid status is improved after 2 boluses and emergency room and regular IV fluids. Patient does have a long history of vomiting and diarrheal illness, though she states her current symptoms are different. She may very well have an acute gastroenteritis. Given she has felt fevers and chills, I will order stool studies for C. difficile and bacterial antigens. Also get fecal leukocyte to see if this is inflammatory. COVID infection can present with vomiting and diarrhea, swab has been taken and she is on precautions. For now, treat supportively with IV fluids and antiemetics. If no signs of inflammatory diarrhea, can also add antidiarrheals. Patient has a history of multiple food intolerances, but she denies any new f oods that may have provoked a severe intolerance. We will adjust her diet per her pre-. (2) Hypokalemia: Status: Acute Assessment and plan: Secondary to vomiting diarrhea. Normal magnesium. Replacing potassium with IV fluids. (3) Anahi infection of flexural skin: Status: Acute Assessment and plan: Nystatin to the skin in the groin. (4) Asthma, intermittent: Status: Chronic Assessment and plan: Not active. Continue inhaled corticosteroid and albuterol MDI as needed. (5) Post traumatic stress disorder (PTSD): Status: Acute Assessment and plan: Mood appears stable despite being unable to tolerate her medications over the past several days. I have changed her citalopram to escitalopram at equivalent dose given her frequent use of antiemetics to avoid QT prolongation. (6) DVT prophylaxis: Status: Acute Assessment and plan: She is young and walking and not on treatment therapy, non-smoker. Low risk, will use SCDs while she is in the bed. (7) Discharge planning issues: Status: Acute Assessment and plan: Patient is observation status for supportive care. Given her travel and acute infection, she will be on respiratory precautions until she is out of the 1 week quarantine with a second negative swab done on day 7, which will be tomorrow afternoon. History of Present Illness History of Present Illness Chief Complaint: Vomiting and diarrhea Narrative: 29-year-old female with history of IBS, GERD, and multiple dietary intolerances who presented emergency room today with ongoing vomiting diarrhea and inability to keep fluids down. Symptoms started on Thursday, 2 days prior to admission. She went to sleep the night before slightly queasy, woke up with profuse vomiting and watery diarrhea. Both vomitus and diarrhea started more yellowish and have become green in coloration. No blood or black in either. Treated with some epigastric crampy pain that is different from her usual IBS/colitis pain which is in the left lower quadrant and more associated with bloating. She presented the emergency room December 10, 1 day prior to admission. She was given IV fluids and a run of 10 mEq potassium for potassium 3.4. She was also given a GI cocktail which helped some. She was discharged with Phenergan suppositories. Vomiting and diarrhea did not improve and [facility] so she returned to the emergency room today. [place] feverish yesterday, temperature was 100.1. She is also had some sweating at night over the last 2 days. She denies any respiratory symptoms including cough, sore throat, runny nose. Patient traveled to the [facility] for 3-day trip, returning around 2 PM on December 05. She denies sick contacts while there or exposure to large groups, other than the airport. Fikarine? did vomit this morning, but he attributed to postnasal drip. She denies any other exposures or sick contacts. She does feel like she has intestinal infection rather than bleeding exacerbation of her chronic gastrointestinal syndrome. Review of Systems Narrative: Per HPI. General: No recent weight change HEENT: Has chronic migraines, but no current headache. No vision changes or eye irritation. No sore throat or ear pain. Mouth sores or difficulty swallowing. Respiratory: No cough or sputum production. No wheezing. Cardiovascular: No chest pain or palpitations GI: Per HPI : Amenorrheic since Nexplanon placement. No vaginal discharge. No dysuria or hematuria. MSK: No joint pain or swelling Skin: No rashes or other skin lesions, no open wounds Psychiatric: No mood swings or recurrent severe depression or anxiety. Has been unable to take her regular medication over the past few days Heme: No bleeding or bruising [facility] Medical History Acute appendicitis (Inactive) MARK positive (Acute) Asthma, intermittent (Acute) Colitis (Acute) Diarrhea (Acute) Dizziness (Acute) Esophageal reflux (Chronic) Fatty liver (Acute) Fibromyalgia (Acute) Headache (Acute) Hip pain, bilateral (Acute) History of gluten intolerance (Acute) History of IBS (Acute) History of ITP (Chronic) Hypokalemia (Acute) Immune thrombocytopenic purpura (Acute) Leg pain, bilateral (Acute) Maculopapular rash (Acute) Menorrhagia (Acute) Migraine Murmur, cardiac (Acute) Obesity (Chronic) Post traumatic stress disorder (PTSD) (Acute) Raynauds syndrome (Acute) Rectal mass (Acute) Sinus tachycardia (Acute) Stress incontinence (Acute) Subclinical hypothyroidism (Acute) Surgical History H/O colonoscopy (Chronic) x 2 H/O esophagogastroduodenoscopy (Chronic) x 2 S/P laparoscopic appendectomy (Acute ~01/15/19) Family History Mother Polyp of colon Grandmother Diabetes Polyp of colon aunt Diabetes Polyp of colon uncle Diabetes Polyp of colon Social History (Updated 12/12/19 @ 16:22 by Hemal Mccabe) Smoking/Tobacco Use Status: Former Tobacco Use Alcohol Intake: current Alcohol Intake frequency: holidays/special occasions only Details: She denies use over the past week Drug use: Occasionally Substance use type: marijuana Details: She denies use for at least the past 6 days Do you feel safe at home: Yes Do you feel safe in your relationship?: Yes Additional Social history: Lives in [place] with her [facility]? and 2 school-aged children. 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 Female Reproductive History Menstrual control method: implanted Meds Home Medications and Allergies Home Medications Medication Instructions Recorded Confirmed Type albuterol sulfate 1.25 mg IH QID PRN 10/11/18 12/12/19 History etonogestrel 68 mg subdermal 1 implant SBD ONCE 10/11/18 12/12/19 History implant fluticasone propionate 44 1 inh IH BID 10/11/18 12/12/19 History mcg/actuation HFA aerosol inhaler citalopram [Celexa] 40 mg PO DAILY 10/22/19 12/12/19 History dicyclomine 20 mg PO BID PRN #14 tab 11/12/19 12/12/19 Rx famotidine 20 mg PO DAILY #14 tab 11/12/19 12/12/19 Rx promethazine 25 mg PO TID PRN #10 tab 11/12/19 12/11/19 Rx promethazine [Promethegan] 25 mg [place] Q6H PRN #12 each 12/11/19 12/12/19 Rx mirtazapine 45 mg PO QHS 12/12/19 12/12/19 History Allergies Allergy/AdvReac Type Severity Reaction Status Date / Time chocolate flavor Allergy Severe Painful Verified 12/12/19 07:45 tongue lamotrigine Allergy Unknown Verified 12/12/19 07:45 gluten AdvReac Severe Gi Upset Verified 12/12/19 07:45 ondansetron [From Zofran] AdvReac Intermediate Other (See Verified 12/12/19 07:45 Comment) lactase [From Dairy Aid] AdvReac Verified 12/12/19 07:45 peanut AdvReac Verified 12/12/19 07:45 pineapple AdvReac Verified 12/12/19 07:45 Yeast AdvReac Verified 12/12/19 07:45 Environmental Allergy Intermediate Runny Uncoded 12/12/19 07:45 nose, sneezing cottage cheese AdvReac Uncoded 12/12/19 07:45 wheat AdvReac Uncoded 12/12/19 07:45 Exam Narrative Exam Narrative: General: Alert and oriented x3, pleasant, no acute distress. HEENT: Normocephalic, atraumatic. Conjunctive are clear with no icterus. Pupils equal 3 mm in room light, extraocular motion intact. No rhinorrhea. Mucous membranes moist with oropharynx benign. Neck is supple with no masses or lymphadenopathy. Lungs: Clear to auscultation bilaterally normal effort. Cardiovascular: Regular rate and rhythm, 1 out of 6 systolic murmur at the left sternal border, no radiation. Abdomen: Active bowel sounds. Soft, nondistended. Mild tenderness in epigastrium slightly more on right than left. Negative Sanchez's. No organomegaly or other masses. No rebound. Extremities: No cyanosis, clubbing, or edema. Nontender to palpation legs. MSK: No joint redness or swelling. No deformity. Skin: 5 mm red patch in left inguinal fold. No other rashes or skin lesions. Neurologic: Cranial nerves grossly intact. Normal speech and coordination. No tremor. Psychiatric: Normal mood and affect. Normal thought process. Results Labs Result diagrams: 12/12/19 08:05 12/12/19 08:05 Labs: Laboratory Results - last 24 hr 12/12/19 12/12/19 12/12/19 08:05 08:05 08:05 WBC 8.89 RBC 4.77 Hgb 14.4 Hct 42.3 MCV 88.7 MCH 30.2 MCHC 34.0 RDW 12.6 Plt Count 268 MPV 9.4 Immature Gran % 0.1 Neutrophils % 70.3 Lymphocytes % 22.3 Monocytes % 5.8 Eosinophils % 1.2 Basophils % 0.3 Absolute Neutrophils 6.24 Absolute Lymphocytes 1.98 Absolute Monocytes 0.52 Absolute Eosinophils 0.11 Absolute Basophils 0.03 Sodium 138 Potassium 3.1 L Chloride 102 Carbon Dioxide 24.4 Anion Gap 11.6 H BUN 9 Creatinine 0.96 Estimated GFR/1.73 m2 >= 60.00 Glucose 107 H Calcium 8.9 Magnesium 2.0 Total Bilirubin 0.8 AST 22 ALT 22 Alkaline Phosphatase 85 Total Protein 7.8 Albumin 4.3 Lipase 190 Urine Color Urine Clarity Urine pH Ur Specific [place] Urine Protein Urine Ketones Urine Blood Urine Nitrite Urine Bilirubin Urine Urobilinogen Ur Leukocyte Esterase Urine Glucose 12/12/19 08:39 WBC RBC Hgb Hct MCV MCH MCHC RDW Plt Count MPV Immature Gran % Neutrophils % Lymphocytes % Monocytes % Eosinophils % Basophils % Absolute Neutrophils Absolute Lymphocytes Absolute Monocytes Absolute Eosinophils Absolute Basophils Sodium Potassium Chloride Carbon Dioxide Anion Gap BUN Creatinine Estimated GFR/1.73 m2 Glucose Calcium Magnesium Total Bilirubin AST ALT Alkaline Phosphatase Total Protein Albumin Lipase Urine Color Yellow Urine Clarity Clear Urine pH 5.5 Ur Specific [place] >= 1.030 H Urine Protein Negative Urine Ketones 80 H Urine Blood Negative Urine Nitrite Negative Urine Bilirubin Small H Urine Urobilinogen 0.2 Ur Leukocyte Esterase Negative Urine Glucose Negative Last Vital Signs Temp 36.6 C 12/12/19 11:28 Pulse 81 12/12/19 11:28 Resp 18 12/12/19 11:28 BP 116/67 12/12/19 11:28 Pulse Ox 100 12/12/19 11:28 COVID-19 Screening In the past 14 days, have you traveled outside of [place] or [place]?: YES Had IN PERSON contact w/suspected or confirmed C-19 person: No
[2019-12-12] MEDS: Dicyclomine 20 MG TAB PO (16:12)
[2019-12-12] MEDS: Nystatin CREAM 15 GM TUBE TP (20:33)
[2019-12-12] MEDS: Mirtazapine 15 MG TAB 45 MG PO (20:33)
[2019-12-13] MEDS: POTASSIUM CHLORIDE/D5-0.9%NACL 1,000 ML 150 MEQ IV ×4 (00:21→19:18)
[2019-12-13] MEDS: Famotidine 20 MG TAB PO (06:07)
[2019-12-13 07:36] LABS: Anion Gap 10.1 mmol/L (3-11); BUN 4 mg/dL (7-18); CO2 22.9 mmol/L (21.0-32.0); CREATININE 0.84 mg/dL (0.55-1.02); Calcium 8.3 mg/dL (8.5-10.1); Chloride 107 mmol/L (98-107); Glucose 105 mg/dL (74-106); Potassium 3.9 mmol/L (3.5-5.1); Sodium 140 mmol/L (136-145)
[2019-12-13 07:53] VITALS: BP 107/66; PULSE 73; RESP 18; TEMP 36.3; O2SAT 99
[2019-12-13] MEDS: Escitalopram 20 MG TAB PO (08:01)
[2019-12-13] MEDS: Nystatin CREAM 15 GM TUBE TP ×3 (08:02→20:05)
[2019-12-13] MEDS: diphenhydrAMINE 25 MG CAP PO ×2 (08:19→19:27)
[2019-12-13] MEDS: Normal Saline Flush 10 ML SYR (08:20)
[2019-12-13 08:31] LABS: COVID-19 RT-PCR UVMMC Result Negative (Negative)
--- NOTE | 2019-12-13 08:40 | PDOC.CMIN ---
- If Service Date Differs Date of service: 12/13/19 Time of Service: 15:33 Care Management Initial Assess REASON FOR HOSPITALIZATION:: Dehydration and vomiting PAST MEDICAL HISTORY/PAST SURGICAL HISTORY:: 5 ER visits 10/22/19-12/12/19. Acute appendicitis, MARK positive, asthma intermittent, colitis, esophageal reflux, fatty liver, fibromyalgia, bilateral hip pain, gluten intolerance, IBS, ITP, hypokalemia, immune thrombocytopenic purpura, bilateral leg pain, maculopapular rash, menorrhagia, migrain, cardiac murmur, obesity, PTSD, Raynauds syndrome, rectal mass, sinus tacchycardia, stress incontinence, sublinical hypothyroidism, colonoscopy, EGD, laparascopic appendectomy. PREVIOUS FUNCTIONAL STATUS/SOCIAL/FAMILY SUPPORTS:: Daniela resides in [facility]. Her mother resides in [place]. She is independent at baseline in the community. CURRENT FUNCTIONAL STATUS:: Daniela is in the CV-19 unit awaiting repeat Covid results, and remains in isolation at this time. CM continues to follow. ADVANCE DIRECTIVES:: None on file at [facility]. Has patient been provided with info about the portal/API?: Yes Did the patient sign up for the portal?: No CODE STATUS:: Full Code INSURANCE COVERAGE / FINANCIAL ISSUES:: Medicaid CURRENT HOME/COMMUNITY SERVICES/EQUIPMENT:: No current services or equipment. PRIMARY CARE PHYSICIAN:: Jessica Mohamud POTENTIAL DISCHARGE NEEDS:: Follow up appointment with PCP. PATIENT/FAMILY EDUCATION NEEDS:: Review discharge instructions, discuss Ask Me Three. ANTICIPATED BARRIERS TO DISCHARGE:: None identified at this time. TRANSPORTATION:: Via private vehicle with family. PLAN:: Daniela continues to be closely monitored at this time. Anticipate she will return home when ready per MD, she will follow up with her PCP and plan of care as prescribed. CM continues to follow.
[2019-12-13 12:28] VITALS: BP 121/73; PULSE 81; RESP 18; TEMP 36.4; O2SAT 99
--- NOTE | 2019-12-13 13:27 | W.NUTCONSULT ---
Date of service: 12/13/19 Time of Service: 13:27 Nutritional Consult ASSESSMENT: 29 year old female admitted after 3 days of n/v/d with dehydration, hypokalemia. PMH: IBS, PTSD. Has multiple food allergies including gluten, lactose, peanut and yeast allergy. Intolerant of pineapple. Following allergen free diet. Labs unremarkable however 15 lbs weight loss noted in last 12 months. Current BMI indicates obesity, recent weight loss considered beneficial. Estimated Needs: 8477-5608 kcal, 50-60 g protein, 2400 ml fluid. At nutritional risk in view of multiple food allergies and persistent frequent episodes of n/v/d in past year. labs unremarkable. NUTRITIONAL DIAGNOSIS: Increased nutrient needs in view of losses with frequent periods of n/v/d of unknown origin INTERVENTION: Allergen free diet MONITORING AND EVALUATION: weight, po intake, labs Time Spent in Nutritional Counseling and Treatment: 10
--- NOTE | 2019-12-13 16:02 | PGE_ITS ---
Date of Service Date of service: 12/13/19 Time of Service: 16:02 Assessment and Plan Assessment and plan (1) Nausea & vomiting: Status: Acute Assessment and plan: ongoing. will continue with IV hydration, antiemetics, (2) Hypokalemia: Status: Acute Assessment and plan: from GI losses, replete and follow (3) Anahi infection of flexural skin: Status: Acute Assessment and plan: continue Nystatin to the skin in the groin. (4) Asthma, intermittent: Status: Chronic Assessment and plan: stable, Continue inhaled corticosteroid and albuterol MDI as needed. (5) Post traumatic stress disorder (PTSD): Status: Acute Assessment and plan: Mood stable despite being unable to tolerate her medications over the past several days. she was changed from citalopram to escitalopram at equivalent dose given her frequent use of antiemetics to avoid QT prolongation. (6) DVT prophylaxis: Status: Acute Assessment and plan: low risk d/t age, ambulatory, non smoker, scd's when in bed (7) Discharge planning issues: Status: Acute Assessment and plan: Given her travel and acute infection, she will be on respiratory precautions until she is out of the 1 week quarantine with a second negative swab done today, on day 7. Subjective Subjective Patient reports: nausea and vomiting Interval history since last seen: patient with ongoing nausea, reports headache today. no fevers, hemodynamically stable Exam Narrative Exam Narrative: General: Alert and oriented x3, pleasant, no acute distress. pink warm dry HEENT: Normocephalic, atraumatic. Conjunctive are clear with no icterus. EOM intact Mucous membranes moist with no exudate. Neck is supple Lungs: Clear bilaterally, respirations even and unlabored. Cardiovascular: Regular rate and rhythm, Abdomen: Active bowel sounds. Soft, nondistended. Mild tenderness upper abdomen right than left. no masses, no rebound. Extremities: No edema, moves all extremities. Skin: rash left inguinal fold most consistent with fungal Neurologic: awake and oriented, no focal deficits Psychiatric: Normal mood and affect. Normal thought process. Objective Objective Clinical Data: Abnormal lab results 12/13/19 Range/Units 06:30 BUN 4 L (7-18) mg/dL Calcium 8.3 L (8.5-10.1) mg/dL Vital Signs Temperature 36.4 C L 12/13/19 12:28 Temperature Source Tympanic 06/16/20 12:28 Pulse 81 12/13/19 12:28 Pulse Rhythm Regular 12/13/19 09:14 Pulse 85 12/12/19 10:40 Respiratory Rate 18 12/13/19 12:28 Respiratory Effort Non-Labored 12/13/19 09:14 Respiratory Depth Normal 12/13/19 09:14 Respiratory Pattern Normal 12/13/19 09:14 Blood Pressure 121/73 12/13/19 12:28 Blood Pressure Mean 82 12/12/19 10:31 Blood Pressure Position Sitting 12/12/19 07:39 Pulse Oximetry 99 12/13/19 12:28 Oxygen Delivery Method Room Air 12/13/19 12:28 Oxygen Flow Rate 0 12/13/19 12:28 Pain Level 2 12/13/19 12:28 Intake & Output 12/12/19 12/13/19 12/13/19 23:59 11:59 23:59 Intake Total 1923.5 / 4023.5 1967.5 / 2967.5 1000 / 2967.5 Balance 1923.5 / 4023.5 1967.5 / 2967.5 1000 / 2967.5 Weight 82 kg Intake: IV 1923.5 / 4023.5 1717.5 / 2717.5 1000 / 2717.5 Oral 250 / 250 Other: Urine Appearance Clear Comment independant Stool Characteristics Liquid Laboratory Results WBC 8.89 k/cumm (4.4-10.8) 12/12/19 08:05 RBC 4.77 m/cumm (4.00-5.20) 12/12/19 08:05 Hgb 14.4 g/dL (12.0-15.5) 12/12/19 08:05 Hct 42.3 % (36.0-46.0) 12/12/19 08:05 MCV 88.7 fL (80-95) 12/12/19 08:05 MCH 30.2 pg (27.0-33.0) 12/12/19 08:05 MCHC 34.0 g/dL (32.0-36.0) 12/12/19 08:05 RDW 12.6 % (11.7-14.6) 12/12/19 08:05 Plt Count 268 x1000/uL (130-400) 12/12/19 08:05 MPV 9.4 fL (8.0-11.0) 12/12/19 08:05 Immature Gran % 0.1 % 12/12/19 08:05 Neutrophils % 70.3 12/12/19 08:05 Lymphocytes % 22.3 12/12/19 08:05 Monocytes % 5.8 12/12/19 08:05 Eosinophils % 1.2 12/12/19 08:05 Basophils % 0.3 12/12/19 08:05 Absolute Neutrophils 6.24 k/cumm (1.2-6.7) 12/12/19 08:05 Absolute Lymphocytes 1.98 k/cumm (1.2-3.4) 12/12/19 08:05 Absolute Monocytes 0.52 k/cumm (0.11-0.7) 12/12/19 08:05 Absolute Eosinophils 0.11 k/cumm (0.0-0.7) 12/12/19 08:05 Absolute Basophils 0.03 k/cumm (0.0-0.2) 12/12/19 08:05 Sodium 140 mmol/L (136-145) 12/13/19 06:30 Potassium 3.9 mmol/L (3.5-5.1) D 12/13/19 06:30 Chloride 107 mmol/L (98-107) 12/13/19 06:30 Carbon Dioxide 22.9 mmol/L (21.0-32.0) 12/13/19 06:30 Anion Gap 10.1 mmol/L (3-11) 12/13/19 06:30 BUN 4 mg/dL (7-18) L 12/13/19 06:30 Creatinine 0.84 mg/dL (0.55-1.02) 12/13/19 06:30 Estimated GFR/1.73 m2 >= 60.00 (mL/min/1.73m2) 12/13/19 06:30 Glucose 105 mg/dL (74-106) 12/13/19 06:30 Calcium 8.3 mg/dL (8.5-10.1) L 12/13/19 06:30 Magnesium 2.0 mg/dL (1.8-2.4) 12/12/19 08:05 Total Bilirubin 0.8 mg/dL (0.2-1.0) 12/12/19 08:05 AST 22 U/L (15-37) 12/12/19 08:05 ALT 22 U/L (14-59) 12/12/19 08:05 Alkaline Phosphatase 85 U/L (46-116) 12/12/19 08:05 Total Protein 7.8 g/dL (6.4-8.2) 12/12/19 08:05 Albumin 4.3 g/dL (3.4-5.0) 12/12/19 08:05 Lipase 190 U/L (73-393) 12/12/19 08:05 Urine Color Yellow (Yellow) 12/12/19 08:39 Urine Clarity Clear (Clear) 12/12/19 08:39 Urine pH 5.5 (5-8) 12/12/19 08:39 Ur Specific [place] >= 1.030 (1.005-1.025) H 12/12/19 08:39 Urine Protein Negative mg/dL (Negative) 12/12/19 08:39 Urine Ketones 80 mg/dL (Negative) H 12/12/19 08:39 Urine Blood Negative (Negative) 12/12/19 08:39 Urine Nitrite Negative (Negative) 12/12/19 08:39 Urine Bilirubin Small (Negative) H 12/12/19 08:39 Urine Urobilinogen 0.2 EU/dL (Up TO 0.2) 12/12/19 08:39 Ur Leukocyte Esterase Negative (Negative) 12/12/19 08:39 Urine Glucose Negative mg/dL (Negative) 12/12/19 08:39 COVID-19 PCR Negative (Negative) 12/12/19 10:55 Nasopharyn COVID-19 PCR Not Applicable 12/12/19 10:55 Ref Test Perform Site [facility] lab 12/12/19 10:55
[2019-12-13] MEDS: Acetaminophen 325 MG TAB 650 MG PO (16:20)
--- NOTE | 2019-12-13 16:33 | PHACLINREV_ITS ---
Pharmacy Admission Review - Admission Clinical Review (Last Updated 12/12/19 @ 16:33 by Hemal Mccabe) Post traumatic stress disorder (PTSD) (Acute) Hypokalemia (Acute) Discharge planning issues (Acute) DVT prophylaxis (Acute) Anahi infection of flexural skin (Acute) Dehydration (Acute) Nausea & vomiting (Acute) chocolate flavor Allergy (Severe, Verified 12/12/19 07:45) Painful tongue lamotrigine Allergy (Unknown, Verified 12/12/19 07:45) gluten Adverse Reaction (Severe, Verified 12/12/19 07:45) Gi Upset ondansetron [From Zofran] Adverse Reaction (Intermediate, Verified 12/12/19 07:45) Other (See Comment) lactase [From Dairy Aid] Adverse Reaction (Verified 12/12/19 07:45) peanut Adverse Reaction (Verified 12/12/19 07:45) pineapple Adverse Reaction (Verified 12/12/19 07:45) Yeast Adverse Reaction (Verified 12/12/19 07:45) Environmental Allergy (Intermediate, Uncoded 12/12/19 07:45) Runny nose, sneezing cottage cheese Adverse Reaction (Uncoded 12/12/19 07:45) wheat Adverse Reaction (Uncoded 12/12/19 07:45) Height 5 ft 3 in Weight 82 kg - Renal Dosing Renal Dosing: BUN 4 mg/dL (7-18) L 12/13/19 06:30 Creatinine 0.84 mg/dL (0.55-1.02) 12/13/19 06:30 Medications needing adjustments: Reviewed (Crcl ~98.3 mL/min using adjusted bodyweight. Current meds okay) - Anticoagulation Anticoagulation: Hgb 14.4 g/dL (12.0-15.5) 12/12/19 08:05 Hct 42.3 % (36.0-46.0) 12/12/19 08:05 Plt Count 268 x1000/uL (130-400) 12/12/19 08:05 Creatinine 0.84 mg/dL (0.55-1.02) 12/13/19 06:30 DVT Prohphylaxis: Reviewed (low risk (young and moving), has SCDs ordered per H &P) - Opiate Usage Evaluate Pain Scale/Pains Meds: N/A - Relevant Labs Sodium 140 mmol/L (136-145) 12/13/19 06:30 Potassium 3.9 mmol/L (3.5-5.1) D 12/13/19 06:30 Chloride 107 mmol/L (98-107) 12/13/19 06:30 Magnesium 2.0 mg/dL (1.8-2.4) 12/12/19 08:05 Electrolytes, C-Reactive P, ESR: Reviewed (has IVF w/ K+ still going) - DM Control DM Control: Glucose 105 mg/dL (74-106) 12/13/19 06:30 Insulin Dosing: N/A - Heart Failure/NC EF%, FLOYD's, B-Blockers, Diuretics: N/A - BP Control BP Control: Blood Pressure 121/73 Blood Pressure 107/66 If elevated: N/A - Qtc Review If Elevated: N/A (QTc 456) - IV to PO Switch IV Medications: N/A - Home Meds Home Med List reviewed: Reviewed (multiple QT prolonging meds: citalopram, promethazine, albuterol) Relevent Home Meds Not ordered & why?: albuterol, citalopram (changed to escitalopram), etonogestrel (implant), flouticasone (has mometasone ordered). - Current meds Current Medication Order Review: Intervened (pt has IV meds ordered but not IV access or flushes ordered (message sent to provider)) - Comments Comments/Follow Ups: watch K+, for any QT prolonging meds and for med changes.
[2019-12-13] MEDS: Normal Saline Flush 10 ML SYR IVP (19:26)
[2019-12-13] MEDS: Mirtazapine 15 MG TAB 45 MG PO (20:04)
[2019-12-13] MEDS: Mometasone 220 MCG 14 DOSE INHALER IH (20:05)
[2019-12-13 22:04] LABS: COVID-19 RT-PCR UVMMC Result Negative (Negative)
[2019-12-13 23:42] VITALS: BP 129/78; PULSE 78; RESP 18; TEMP 36.9; O2SAT 99
[2019-12-14] MEDS: POTASSIUM CHLORIDE/D5-0.9%NACL 1,000 ML 150 MEQ IV (02:56)
[2019-12-14 03:50] VITALS: BP 100/65; PULSE 72; RESP 17; TEMP 35.4; O2SAT 96
[2019-12-14] MEDS: Normal Saline Flush 10 ML SYR IVP (06:54)
[2019-12-14] MEDS: diphenhydrAMINE 25 MG CAP PO ×2 (06:54→08:24)
[2019-12-14 07:13] VITALS: BP 136/92; PULSE 101; RESP 18; TEMP 37.4; O2SAT 100
[2019-12-14 07:15] VITALS: O2SAT 100
[2019-12-14] MEDS: Escitalopram 20 MG TAB PO (08:24)
[2019-12-14] MEDS: Famotidine 20 MG TAB PO (08:24)
--- NOTE | 2019-12-14 09:09 | DSE_ITS ---
Date of service: 12/14/19 Time of Service: 09:10 DS: Diagnosis Discharge Diagnosis (1) Nausea & vomiting: Status: Acute (2) Hypokalemia: Status: Acute (3) Anahi infection of flexural skin: Status: Acute (4) Asthma, intermittent: Status: Chronic (5) Post traumatic stress disorder (PTSD): Status: Acute Discharge Plan Disposition Patient Disposition: HOME Condition: Good Discharge Details Chief Complaint: Nausea/Vomit/Diar Reason For Visit: DEHYDRATION, VOMITING Admit Date/Time: 12/12/19 10:32 Admit Provider: Hemal Mccabe Attending Provider: Hemal Mccabe Primary Care Provider: Jessica Mohamud ED Provider: Chantale Phelps Hospital Course Hospital Course: This is a 29-year-old female with history of IBS, GERD, and multiple dietary intolerances who presented emergency room with ongoing vomiting diarrhea and inability to keep fluids down. Symptoms started 2 days prior to admission. She Had also presented the emergency room December 10, 1 day prior to admission. She was given IV fluids and a run of 10 mEq potassium for potassium 3.4. She was also given a GI cocktail which helped some. She was discharged with Phenergan suppositories. Vomiting and diarrhea did not improve and she was unable to take fluids at home, so she returned to the emergency room today. temperature was 100.1. Patient traveled to the [facility] for 3-day trip, returning around 2 PM on December 05. She denies sick contacts while there or exposure to large groups, other than the airport. Fikarine? did vomit this morning, but he attributed to postnasal drip. She was referred to observation for IV hydration and antiemetics. She slowly improved and diet was advanced. Hemodynamically she remained stable. She was afebrile. Labs normalized. Lactoferrin and C. difficile were negative fecal bacterial pathogens still pending at time of discharge She was still experiencing some mild symptoms but was stable for discharge to home. She has prescriptions for Phenergan at home and will follow-up outpatient with her primary care provider and general surgery. She did have 2 COVID tests while hospitalized which were both negative. She will be discharged home on oral potassium. Her citalopram was changed to esitalopram at the equivalent dose given her frequent use of antiemetics to avoid QT prolongation. She will have lab work to check electrolytes and CBC on December 15. Her case and discharge plan was discussed with Dr. Dozier who is in agreement Home Meds and New Rx's Prescriptions: New nystatin 100,000 unit/gram Cream 1 applic topical TID Qty: 30 RF: 0 escitalopram oxalate [Lexapro] 20 mg Tablet 20 mg PO DAILY Qty: 30 RF: 0 potassium chloride 10 mEq tablet extended release 10 meq PO DAILY Qty: 30 RF: 0 Continued Nexplanon 68 mg implant 1 implant SBD ONCE RF: 0 albuterol sulfate 2.5 mg /3 mL (0.083 %) solution for nebulization 1.25 mg IH QID PRNRF: 0 Flovent HFA 44 mcg/actuation HFA aerosol inhaler 1 inh IH BID RF: 0 promethazine 25 mg tablet 25 mg PO TID PRN (Reason: nausea and vomiting) Qty: 10 RF: 0 mirtazapine 45 mg Tablet 45 mg PO QHS RF: 0 famotidine 20 mg tablet 20 mg PO DAILY Qty: 14 RF: 0 dicyclomine 20 mg tablet 20 mg PO BID PRN (Reason: abdominal cramps) Qty: 14 RF: 0 promethazine [Promethegan] 25 mg suppository 25 mg MA Q6H PRN (Reason: nausea and vomiting) Qty: 12 RF: 0 Discontinued citalopram [Celexa] 40 mg Tablet 40 mg PO DAILY RF: 0 Discharge Instructions Instructions: Acute Diarrhea (ED) Additional Instructions: continue medications as directed. clear liquids, advance as tolerated Referrals: Jessica Mohamud [Primary Care Provider] - (one week) Gwen Harrison MD [ [facility] STAFF PHYSICIAN] - Activity:: Activity as Tolerated Equipment/Supplies:: No Equipment Needed Diet:: As Tolerated Discharge Orders Discharge Orders: Discharge Order (Routine); Ordered 12/14/19 Ordered By: Libertad Chen Other Ambulatory Orders: Basic Metabolic Panel (Routine) Timeframe: 20191216 Location: None Selected Ordered By: Libertad Chen Complete Blood Count w/Diff (Routine) Timeframe: 20191216 Location: None Selected Ordered By: Libertad Chen DS: Summary Status at Discharge Functional status at discharge: independent ambulation Overall status at discharge: patient is progressing back to baseline Mental Status: mental status grossly normal Speech and Movement: speech and movement normal Mood: congruent mood Affect: normal affect Exam Narrative Exam Narrative: General: Alert and oriented x3, pleasant, no acute distress. pink warm dry HEENT: Normocephalic, atraumatic. Conjunctive are clear with no icterus. EOM intact Mucous membranes moist with no exudate. Neck is supple Lungs: Clear bilaterally, respirations even and unlabored. Cardiovascular: Regular rate and rhythm, Abdomen: Active bowel sounds. Soft, nondistended. Mild tenderness upper abdomen right than left. no masses, no rebound. Extremities: No edema, moves all extremities. Skin: rash left inguinal fold most consistent with fungal Neurologic: awake and oriented, no focal deficits Psychiatric: Normal mood and affect. Normal thought process. Psych Mental Status: mental status grossly normal Speech and Movement: speech and movement normal Mood: congruent mood Affect: normal affect DS: Data Vitals/I&O Vitals and I&O: Vital Signs Temperature 37.4 C 12/14/19 07:13 Temperature Source Tympanic 12/14/19 07:13 Pulse 101 H 12/14/19 07:13 Pulse Rhythm Regular 12/14/19 07:15 Pulse 85 12/12/19 10:40 Respiratory Rate 18 12/14/19 07:13 Respiratory Effort Non-Labored 12/14/19 07:15 Respiratory Depth Normal 12/14/19 07:15 Respiratory Pattern Normal 12/14/19 07:15 Blood Pressure 136/92 H 12/14/19 07:13 Blood Pressure Mean 82 12/12/19 10:31 Blood Pressure Position Sitting 12/12/19 07:39 Pulse Oximetry 100 12/14/19 07:15 Oxygen Delivery Method Room Air 12/14/19 07:15 Oxygen Flow Rate 0 12/14/19 07:15 Pain Level 6 12/14/19 07:13 Intake & Output 12/13/19 12/13/19 12/14/19 11:59 23:59 11:59 Intake Total 1966.3972.2005 1250 / 1250 Balance 2005 1250 / 1250 Weight 82 kg 83.2 kg Intake: IV 1717. / 3723.5 2005 1000 / 1000 Oral 250 / 250 250 / 250 Other: Urine Color Yellow Urine Appearance Clear Clear Comment independant Stool Size Moderate Stool Characteristics Liquid Emesis Description Bile Voiding Methods Toilet Toilet Data Completed and Pending Labs on day of discharge: Labs from last 24 hours 12/13/19 12:30 COVID-19 PCR Negative Fahad COVID-19 PCR Not Applicable Ref Test Perform Site [facility] Medical History (Updated 12/12/19 @ 16:33 by Hemal Mccabe) Acute appendicitis (Inactive) MARK positive (Acute) Asthma, intermittent (Chronic) Colitis (Acute) Diarrhea (Acute) Dizziness (Acute) Esophageal reflux (Chronic) Fatty liver (Acute) Fibromyalgia (Acute) Headache (Acute) Hip pain, bilateral (Acute) History of gluten intolerance (Acute) History of IBS (Acute) History of ITP (Chronic) Hypokalemia (Acute) Immune thrombocytopenic purpura (Acute) Leg pain, bilateral (Acute) Maculopapular rash (Acute) Menorrhagia (Acute) Migraine Murmur, cardiac (Acute) Obesity (Chronic) Post traumatic stress disorder (PTSD) (Acute) Raynauds syndrome (Acute) Rectal mass (Acute) Sinus tachycardia (Acute) Stress incontinence (Acute) Subclinical hypothyroidism (Acute) Surgical History H/O colonoscopy (Chronic) x 2 H/O esophagogastroduodenoscopy (Chronic) x 2 S/P laparoscopic appendectomy (Acute ~01/15/19) Family History Mother Polyp of colon Grandmother Diabetes Polyp of colon aunt Diabetes Polyp of colon uncle Diabetes Polyp of colon Social History (Updated 12/12/19 @ 16:22 by Hemal Mccabe) Smoking/Tobacco Use Status: Former Tobacco Use Alcohol Intake: current Alcohol Intake frequency: holidays/special occasions only Details: She denies use over the past week Drug use: Occasionally Substance use type: marijuana Details: She denies use for at least the past 6 days Do you feel safe at home: Yes Do you feel safe in your relationship?: Yes Additional Social history: Lives in [place] with her fianc? and 2 school-aged children. 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 Female Reproductive History Menstrual control method: implanted
--- NOTE | 2019-12-14 10:09 | PDOC.CMDIS ---
LACE Index Scoring Tool - Questions: Length of Stay (in days): 2 Acuity (Admit via E.D.?): Yes E.D. Visits: 9 - Answers: Total Score: 9 Risk of Readmission: Low Risk Care Management Discharge Reason for Hospitalization: Dehydration and vomiting Discharge Plan: Daniela will return home when ready per MD, she will follow up with her PCP and plan of care as prescribed. She will transport via private vehicle with family. Patient/Family Education Needs: Review discharge instructions, discuss Ask Me Three.
[2019-12-14 13:33] LABS: Campylobacter PCR Negative (Negative); Salmonella PCR Negative (Negative); Shiga Toxin PCR Negative (Negative); Shigella/Enteroinvasive Ecoli Negative (Negative)
== END 2019-12-14 12:05 | disposition home or self-care (01) ==
LOC: ER 09:53 → MS 11:19
PROVIDERS: Admitting Provider Family Medicine; Emergency Provider Student in an Organized Health Care Education/Training Program; PCP Nurse Practitioner Family; Visit Provider Internal Medicine
DX: E86.0 Dehydration (principal); E87.6 Hypokalemia; R11.2 Nausea with vomiting, unspecified; R19.7 Diarrhea, unspecified; B37.2 Candidiasis of skin and nail; F43.10 Post-traumatic stress disorder, unspecified; J45.20 Mild intermittent asthma, uncomplicated
CPT/HCPCS: 36415; 80048; 80053; 81025; 83690; 87505; 93005; 96361; 96365; 96366; 96375; 99217; 99219; 99226; 99285; U0003; 81003; 83630; 83735; 85025; 87324; 93010; 99284; G0378; J2765; J3480; J3490

== ENCOUNTER 2019-12-16 09:35 | Outpatient (CLI) | payer MEDICAID, SELFPAY ==
[2019-12-16 12:53] LABS: Absolute Basophil Count 0.02 k/cumm (0.0-0.2); Absolute Eosinophil Count 0.25 k/cumm (0.0-0.7); Absolute Lymphocyte Count 2.74 k/cumm (1.2-3.4); Absolute Monocyte Count 0.64 k/cumm (0.11-0.7); Absolute Neutrophil Count 4.35 k/cumm (1.2-6.7); Basophils % 0.3; Eosinophils % 3.1; HCT 40.5 % (36.0-46.0); Lymphocytes % 34.3; Mean Corp. HGB Concentration 34.6 g/dL (32.0-36.0); Mean Corpuscular Hemoglobin 30.7 pg (27.0-33.0); Mean Corpuscular Volume 88.8 fL (80-95); Mean Platelet Volume 9.3 fL (8.0-11.0); Neutrophils % 54.3; Platelet Count 306 x1000/uL (130-400); RBC 4.56 m/cumm (4.00-5.20); RBC Distribution Width 12.3 % (11.7-14.6)
[2019-12-16 13:43] LABS: Anion Gap 9.1 mmol/L (3-11); BUN 11 mg/dL (7-18); CO2 27.9 mmol/L (21.0-32.0); Calcium 9.1 mg/dL (8.5-10.1); Chloride 102 mmol/L (98-107); Glucose 91 mg/dL (74-106); Potassium 4.6 mmol/L (3.5-5.1); Sodium 139 mmol/L (136-145)
== END 2019-12-16 09:55 ==
PROVIDERS: PCP Nurse Practitioner Family; Visit Provider Nurse Practitioner Acute Care
DX: E87.6 Hypokalemia (principal); R11.2 Nausea with vomiting, unspecified
CPT/HCPCS: 36415; 80048; 85025

== ENCOUNTER 2020-01-16 13:46 | Outpatient (REF) | payer MEDICAID, SELFPAY ==
[2020-01-21 12:32] LABS: SARS-CoV-2 RNA Undetected (Undetected); SARS-CoV-2 Specimen Source Nasopharynx
== END 2020-01-16 14:06 ==
LOC: NCHCN 13:46
PROVIDERS: PCP Nurse Practitioner Family; Visit Provider Nurse Practitioner Family
DX: R09.81 Nasal congestion (principal)
CPT/HCPCS: U0003

== ENCOUNTER 2020-03-18 06:53 | Emergency (ER) | payer MEDICAID, SELFPAY ==
[2020-03-18 06:58] VITALS: BP 143/74; PULSE 101; RESP 18; TEMP 36.4; O2SAT 100
--- NOTE | 2020-03-18 07:12 | W.ED.GENAD ---
Discharge Plan Disposition Patient Disposition: HOME Condition: Improving Discharge Details Clinical Impression: Chronic vomiting Primary Care Provider: Jessica Mohamud ED Provider: Yamilet Mathias Home Meds and New Rx's Prescriptions: Continued Nexplanon 68 mg implant 1 implant SBD ONCE RF: 0 albuterol sulfate 2.5 mg /3 mL (0.083 %) solution for nebulization 1.25 mg IH QID PRNRF: 0 Flovent HFA 44 mcg/actuation HFA aerosol inhaler 1 inh IH BID RF: 0 linaclotide 290 mcg capsule 290 mcg PO QAM Qty: 30 RF: 5 mirtazapine 45 mg Tablet 45 mg PO QHS RF: 0 nystatin 100,000 unit/gram Cream 1 applic topical TID Qty: 30 RF: 0 escitalopram oxalate [Lexapro] 20 mg Tablet 20 mg PO DAILY Qty: 30 RF: 0 famotidine 20 mg tablet 20 mg PO DAILY Qty: 14 RF: 0 promethazine [Promethegan] 25 mg suppository 25 mg MS Q6H PRN (Reason: nausea and vomiting) Qty: 12 RF: 0 Discharge Instructions Instructions: Acute Nausea and Vomiting (ED) Additional Instructions: Drink plenty of fluids and get plenty of rest. Take the Phenergan that you have at home as needed and directed for nausea and vomiting. Follow-up with your primary care doctor in 1 week. Return to the emergency department with any worsening or new concerning symptoms. Discharge Data Discharge Date/Time-TO BE ENTERED AT DEPARTURE: 03/18/20 10:20 Discharge Physician: Yamilet Mathias Medical Decision Making <Pacheco Russell MD - Last Filed: 03/18/20 07:26> Patient reports that she typically gets fluids and promethazine and does much better. IV established laboratory and medications ordered. Patient will be signed out to oncoming physician to follow-up on labs and reevaluate patient for discharge. Medical Records Medical records reviewed: Yes I reviewed the patient's medical records. <Yamilet Mathias DO - Last Filed: 03/18/20 19:46> 0800 --please see Dr. Russell's note for initial presentation, exam and plan. Case endorsed to follow-up on patient's response to fluids and meds. 29-year-old female with a history of chronic vomiting for the past few years which she has been seen by Dr. Harrison for and told was likely a vagal response to bowel movements. She states she started a new job 3 weeks ago and thought that her acute on chronic vomiting for the past 2 weeks was due to stress. She has been taking Linzess for chronic constipation and now mainly has occasional diarrhea. Labs reviewed and unremarkable. Normal white blood cell count. Potassium 3.4. Urinalysis negative. She has tenderness to palpation in the epigastrium and left lower quadrant. She is still complaining of pain and nausea Will give a dose of morphine and haldol for intractable nausea and obtain CT scan to rule out any acute abdominal process such as diverticulitis, bowel obstruction. 1010 --CT reviewed and negative. Patient told nurse she needs to leave. Patient reassessed and she is tearful and crying and requesting to leave. Discussed with patient that we can give her a dose of Benadryl which may offset some restlessness she may be experiencing after the Phenergan, Compazine and Haldol. Patient is adamant that she does not feel restless or jittery and that she just mainly does not want to be in the ER anymore. She denies any uncomfortable or upsetting conversations or experiences and she states just wants to go home to rest. She has Phenergan suppository at home to take as needed. She is advised to follow-up with her primary care doctor and Dr. Harrison if needed for reevaluation. Usual and customary return precautions given prior to discharge. Medical Records Medical records reviewed: Yes I reviewed the patient's medical records. Imaging Data Radiologic Study: Radiologist's impression: Laboratory Tests Range/Units 03/18/20 03/18/20 03/18/20 07:20 07:20 08:40 WBC (4.4-10.8) 10^3/uL 6.00 RBC (3.93-5.22) 10^6/uL 4.60 Hgb (11.2-15.7) g/dL 14.2 Hct (36.0-46.0) % 41.2 MCV (80-95) fL 89.6 MCH (27.0-33.0) pg 30.9 MCHC (32.0-36.0) % 34.5 RDW (11.7-14.6) % 12.1 Plt Count (130-400) 10^3/uL 278 MPV (8.0-11.0) fL 9.7 Immature Gran % 0.3 Neutrophils % 61.0 Lymphocytes % 28.3 Monocytes % 6.5 Eosinophils % 3.2 Basophils % 0.7 Nucleated RBC % % 0 Absolute Neutrophils (1.2-6.7) 10^3/uL 3.66 Absolute Lymphocytes (1.2-3.4) 10^3/uL 1.70 Absolute Monocytes (0.1-0.8) 10^3/uL 0.39 Absolute Eosinophils (0.0-0.7) 10^3/uL 0.19 Absolute Basophils (0.0-0.2) 10^3/uL 0.04 Sodium (136-145) mmol/L 141 Potassium (3.5-5.1) mmol/L 3.4 L Chloride (98-107) mmol/L 104 Carbon Dioxide (21.0-32.0) mmol/L 24.5 Anion Gap (3-11) mmol/L 12.5 H BUN (7-18) mg/dL 7 Creatinine (0.55-1.02) mg/dL 1.00 Estimated GFR/1.73 m2 (mL/min/1.73m2) >= 60.00 Glucose (74-106) mg/dL 115 H Calcium (8.5-10.1) mg/dL 8.9 Magnesium (1.8-2.4) mg/dL 2.2 Total Bilirubin (0.2-1.0) mg/dL 0.5 AST (15-37) U/L 18 ALT (14-59) U/L 19 Alkaline Phosphatase (46-116) U/L 82 Total Protein (6.4-8.2) g/dL 7.6 Albumin (3.4-5.0) g/dL 4.3 Lipase (73-393) U/L 127 Urine Color (Yellow) Yellow Urine Clarity (Clear) Clear Urine pH (5-8) 5.5 Ur Specific [place] (1.005-1.025) 1.015 Urine Protein (Negative) mg/dL Negative Urine Ketones (Negative) mg/dL Negative Urine Blood (Negative) Negative Urine Nitrite (Negative) Negative Urine Bilirubin (Negative) Negative Urine Urobilinogen (Up TO 0.2) EU/dL 0.2 Ur Leukocyte Esterase (Negative) Negative Urine Glucose (Negative) mg/dL Negative Lab Data Lab results reviewed: Yes I reviewed the patient's lab results. Labs: Laboratory Tests Range/Units 03/18/20 03/18/20 03/18/20 07:20 07:20 08:40 WBC (4.4-10.8) 10^3/uL 6.00 RBC (3.93-5.22) 10^6/uL 4.60 Hgb (11.2-15.7) g/dL 14.2 Hct (36.0-46.0) % 41.2 MCV (80-95) fL 89.6 MCH (27.0-33.0) pg 30.9 MCHC (32.0-36.0) % 34.5 RDW (11.7-14.6) % 12.1 Plt Count (130-400) 10^3/uL 278 MPV (8.0-11.0) fL 9.7 Immature Gran % 0.3 Neutrophils % 61.0 Lymphocytes % 28.3 Monocytes % 6.5 Eosinophils % 3.2 Basophils % 0.7 Nucleated RBC % % 0 Absolute Neutrophils (1.2-6.7) 10^3/uL 3.66 Absolute Lymphocytes (1.2-3.4) 10^3/uL 1.70 Absolute Monocytes (0.1-0.8) 10^3/uL 0.39 Absolute Eosinophils (0.0-0.7) 10^3/uL 0.19 Absolute Basophils (0.0-0.2) 10^3/uL 0.04 Sodium (136-145) mmol/L 141 Potassium (3.5-5.1) mmol/L 3.4 L Chloride (98-107) mmol/L 104 Carbon Dioxide (21.0-32.0) mmol/L 24.5 Anion Gap (3-11) mmol/L 12.5 H BUN (7-18) mg/dL 7 Creatinine (0.55-1.02) mg/dL 1.00 Estimated GFR/1.73 m2 (mL/min/1.73m2) >= 60.00 Glucose (74-106) mg/dL 115 H Calcium (8.5-10.1) mg/dL 8.9 Magnesium (1.8-2.4) mg/dL 2.2 Total Bilirubin (0.2-1.0) mg/dL 0.5 AST (15-37) U/L 18 ALT (14-59) U/L 19 Alkaline Phosphatase (46-116) U/L 82 Total Protein (6.4-8.2) g/dL 7.6 Albumin (3.4-5.0) g/dL 4.3 Lipase (73-393) U/L 127 Urine Color (Yellow) Yellow Urine Clarity (Clear) Clear Urine pH (5-8) 5.5 Ur Specific [place] (1.005-1.025) 1.015 Urine Protein (Negative) mg/dL Negative Urine Ketones (Negative) mg/dL Negative Urine Blood (Negative) Negative Urine Nitrite (Negative) Negative Urine Bilirubin (Negative) Negative Urine Urobilinogen (Up TO 0.2) EU/dL 0.2 Ur Leukocyte Esterase (Negative) Negative Urine Glucose (Negative) mg/dL Negative HPI <Pacheco Russell MD - Last Filed: 03/18/20 07:26> General Mode of arrival: ambulatory. Date/Time Provider Initiated Documentation: 03/18/20 07:08. Limitations to Documentation: no limitations. Information obtained by: patient, RN notes reviewed and old records reviewed. HPI Narrative: Patient presents to ED with complaint of nausea and vomiting. Patient has history of same. Also has history of diarrhea which is essentially unchanged. For the last couple of weeks she has had nausea and vomiting, some days not as bad as others. The last few days she is not really been able to keep anything down. She denies fever. She denies chest pain, cough, shortness of breath. This is not something new for her with previous work-ups not revealing of etiology. Related Data Home Medications Medication Instructions Recorded Confirmed albuterol sulfate 1.25 mg IH QID PRN 10/11/18 03/18/20 etonogestrel 68 mg subdermal 1 implant SBD ONCE 10/11/18 03/18/20 implant fluticasone propionate 44 1 inh IH BID 10/11/18 03/18/20 mcg/actuation HFA aerosol inhaler famotidine 20 mg PO DAILY #14 tab 11/12/19 03/18/20 promethazine [Promethegan] 25 mg MS Q6H PRN #12 each 12/11/19 03/18/20 mirtazapine 45 mg PO QHS 12/12/19 03/18/20 escitalopram oxalate [Lexapro] 20 mg PO DAILY #30 tab 12/14/19 03/18/20 nystatin 1 applic TOPICAL TID #30 gm 12/14/19 03/18/20 linaclotide 290 mcg capsule 290 mcg PO QAM #30 cap 01/13/20 03/18/20 Previous Rx's Medication Instructions Recorded famotidine 20 mg PO DAILY #14 tab 11/12/19 promethazine [Promethegan] 25 mg MS Q6H PRN #12 each 12/11/19 escitalopram oxalate [Lexapro] 20 mg PO DAILY #30 tab 12/14/19 nystatin 1 applic TOPICAL TID #30 gm 12/14/19 linaclotide 290 mcg capsule 290 mcg PO QAM #30 cap 01/13/20 Allergies Allergy/AdvReac Type Severity Reaction Status Date / Time chocolate flavor Allergy Severe Painful Verified 03/18/20 07:01 tongue lamotrigine Allergy Unknown Verified 03/18/20 07:01 gluten AdvReac Severe Gi Upset Verified 03/18/20 07:01 ondansetron [From Zofran] AdvReac Intermediate Other (See Verified 03/18/20 07:01 Comment) lactase [From Dairy Aid] AdvReac Verified 03/18/20 07:01 peanut AdvReac Verified 03/18/20 07:01 pineapple AdvReac Verified 03/18/20 07:01 Yeast AdvReac Verified 03/18/20 07:01 Environmental Allergy Intermediate Runny Uncoded 03/18/20 07:01 nose, sneezing cottage cheese AdvReac Uncoded 03/18/20 07:01 wheat AdvReac Uncoded 03/18/20 07:01 General Stated Complaint: Nausea/Vomit/Diar ALL: 3 Review of Systems <Pacheco Russell MD - Last Filed: 03/18/20 07:26> Narrative: As documented in HPI otherwise negative as below. Const: no fever, chills, weakness Resp: no cough, SOB, pleuritic pain CV: no CP, diaphoresis, edema, syncope Neuro: no headache, numbness, focal weakness, confusion PFSH <Pacheco Russell MD - Last Filed: 03/18/20 07:26> Medical History MARK positive Asthma, intermittent Colitis Esophageal reflux Fatty liver Fibromyalgia History of gluten intolerance History of IBS History of ITP Hypokalemia Menorrhagia Migraine Murmur, cardiac Obesity Post traumatic stress disorder (PTSD) Raynauds syndrome Rectal mass Sinus tachycardia Stress incontinence Subclinical hypothyroidism Surgical History H/O colonoscopy x 2 H/O esophagogastroduodenoscopy x 2 S/P laparoscopic appendectomy (~01/15/19) Family History Mother Polyp of colon Grandmother Diabetes Polyp of colon aunt Diabetes Polyp of colon uncle Diabetes Polyp of colon Social History Smoking/Tobacco Use Status: Former Tobacco Use Alcohol Intake: current Alcohol Intake frequency: holidays/special occasions only Details: She denies use over the past week Drug use: Occasionally Substance use type: marijuana Do you feel safe at home: Yes Do you feel safe in your relationship?: Yes Additional Social history: Lives in [place] with her fianc? and 2 school-aged children. 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 Female Reproductive History Menstrual control method: implanted Exam <Pacheco Russell MD - Last Filed: 03/18/20 07:26> Narrative Exam Narrative: Vitals: Afebrile. Mild elevated blood pressure and tachycardia. Normal room air pulse ox. Const: Obese female in NAD. HEENT: NC/AT. Normal facial exam. Eyes: Normal conjunctiva and sclera. Neck: Supple. Trachea midline. Lungs: Normal respiratory effort. Lungs are clear. Cor: RRR without murmur/gallop. Good radial pulses. GI: Soft. NT/ND. No guarding or rebound. Neuro: A+O x 3. Normal speech, mentation, gait. Cranial nerves II - XII grossly intact. No gross motor or sensory deficit. Ext: No C/C/E. Skin: Warm and dry without rash. Course <Pacheco Russell MD - Last Filed: 03/18/20 07:26> Vital Signs Vital signs: Vital Signs Temperature 97.5 F L 03/18/20 06:58 Pulse 101 H 03/18/20 06:58 Respiratory Rate 18 03/18/20 06:58 Blood Pressure 143/74 H 03/18/20 06:58 Pulse Oximetry 100 03/18/20 06:58 Temperature 97.5 F L 03/18/20 06:58 Pulse 101 H 03/18/20 06:58 Respiratory Rate 18 03/18/20 06:58 Blood Pressure 143/74 H 03/18/20 06:58 Pulse Oximetry 100 03/18/20 06:58 Pain Level 7 03/18/20 06:58 Sign Out <Pacheco Russell MD - Last Filed: 03/18/20 07:26> Sign Out Data: Sign Out Comment: pending labs, re-eval after fluids/meds Last updated by Pacheco Russell MD at 03/18/20 08:08
[2020-03-18] MEDS: Normal Saline 1,000 ML 1000 ML IV ×2 (07:25→08:25)
[2020-03-18] MEDS: Normal Saline Flush 10 ML SYR IVP ×2 (07:41→09:37)
[2020-03-18 07:49] LABS: Abs Immature Grans 0.02 10^3/uL (0.0-0.06); Absolute Basophil Count 0.04 10^3/uL (0.0-0.2); Absolute Eosinophil Count 0.19 10^3/uL (0.0-0.7); Absolute Monocyte Count 0.39 10^3/uL (0.1-0.8); Absolute Neutrophil Count 3.66 10^3/uL (1.2-6.7); Basophils % 0.7; Eosinophils % 3.2; HCT 41.2 % (36.0-46.0); HGB 14.2 g/dL (11.2-15.7); Immature Grans % 0.3; Lymphocytes % 28.3; MCH 30.9 pg (27.0-33.0); MCHC 34.5 % (32.0-36.0); MCV 89.6 fL (80-95); MPV 9.7 fL (8.0-11.0); Monocytes % 6.5; Nucleated RBC 0 %; Platelet Count 278 10^3/uL (130-400); RDW 12.1 % (11.7-14.6); RDW-SD 39.3 fL
[2020-03-18 07:58] LABS: ALT 19 U/L (14-59); AST 18 U/L (15-37); Albumin 4.3 g/dL (3.4-5.0); Alkaline Phosphatase 82 U/L (46-116); Anion Gap 12.5 mmol/L (3-11); BUN 7 mg/dL (7-18); Bilirubin, Total 0.5 mg/dL (0.2-1.0); CO2 24.5 mmol/L (21.0-32.0); Calcium 8.9 mg/dL (8.5-10.1); Chloride 104 mmol/L (98-107); Glucose 115 mg/dL (74-106); Lipase 127 U/L (73-393); Magnesium 2.2 mg/dL (1.8-2.4); Potassium 3.4 mmol/L (3.5-5.1); Sodium 141 mmol/L (136-145); Total Protein 7.6 g/dL (6.4-8.2)
[2020-03-18] MEDS: Prochlorperazine 10 MG/2 ML VIAL IVP (08:25)
[2020-03-18 08:52] LABS: Bilirubin Negative (Negative); Blood Negative (Negative); Clarity Clear (Clear); Glucose Negative (Negative); Ketones Negative (Negative); Leukocyte Esterase Negative (Negative); Nitrite Negative (Negative); Specific Gravity 1.015 (1.005-1.025); Urobilinogen 0.2 EU/dL (Up TO 0.2); pH 5.5 (5-8)
--- NOTE | 2020-03-18 09:15 | DI.CT_ITS ---
EXAM: CT ABDOMEN PELVIS W CLINICAL HISTORY: vomiting, LLQ abd pain, r/o diverticulitis, SBO TECHNIQUE: Imaging Protocol: Axial computed tomography images with coronal and sagittal reformatted images were created and reviewed CONTRAST MATERIAL: Intravenous: Omnipaque 350 Contrast volume:100 mL Oral: No COMPARISON: CT CT ABDOMEN PELVIS W from 11/12/2019 FINDINGS: ABDOMEN: Lung Bases: Normal where visualized. Liver: Normal density. No measurable mass. Portal, Superior Mesenteric, and Splenic Veins: Unremarkable. Gallbladder and Biliary Tract: No radiodense calculus or dilation. Pancreas: Normal density, no abnormal calcifications or inflammatory process. Spleen: Normal. Adrenals: No masses seen. Kidneys: Normal size, contour and axis. No radiodense stones or obstructive uropathy. No masses seen. Abdominal Aorta: Abdominal portion non-dilated. Bowel: No evidence of bowel obstruction. The patient is status post appendectomy. There is thickeni ng of the wall of the colon throughout but the bowel is not distended. No pericolonic inflammatory c hanges are seen. No evidence of acute diverticulitis. Peritoneal Cavity: No ascites, collection or mesenteric inflammatory response. Lymph Nodes: Within normal limits. Bones: Unremarkable. Soft Tissues: Unremarkable. PELVIS: Bladder: Symmetric distention, no gross wall thickening. Reproductive Organs: Unremarkable as visualized. Lymph Nodes: Within normal limits. Bones: Within normal limits. IMPRESSION: 1. No definite acute abdominal or pelvic process. 2. Apparent colonic wall thickening throughout which may be due to lack of distension. No pericoloni c inflammatory changes are seen. RADIATION DOSE DELIVERED: 950.49mGy.cm Total DLP DATA REPOSITORY: All CT scans at this facility are submitted to the National Radiology Data Registry (NRDR) Dose Index Registry (DIR) with the [employer] (A[employer]). RADIATION OPTIMIZATION: All CT scans at this facility use at least one of these dose optimization te chniques: automated exposure control; mA and/or kV adjustment per patient size (includes targeted exa ms where dose is matched to clinical indication); or iterative reconstruction.
[2020-03-18] MEDS: Haloperidol 5 MG/ML VIAL 2 MG IV (09:35)
[2020-03-18] MEDS: Omnipaque 350 MG/ML 100 ML BTL IJ (09:36)
[2020-03-18] MEDS: Normal Saline - Diluent 50 ML VIAL IV (09:37)
--- NOTE | 2020-03-18 10:12 | DI.VRAD_ITS ---
PROCEDURE INFORMATION: Exam: CT Abdomen And Pelvis With Contrast Exam date and time: 03/18/2020 9:23 AM Age: 29 years old Clinical indication: Other: Vomiting, llq abd pain, R/O diverticulitis, sbo; Additional info: Vomiting x 2 wks, llq abd pain, R/O diverticulitis, sbo TECHNIQUE: Imaging protocol: Computed tomography of the abdomen and pelvis with intravenous contrast. Radiation optimization: All CT scans at this facility use at least one of these dose optimization techniques: automated exposure control; mA and/or kV adjustment per patient size (includes targeted exams where dose is matched to clinical indication); or iterative reconstruction. Contrast material: OMNIPAQUE 350; Contrast volume: 100 ml; Contrast route: INTRAVENOUS (IV); COMPARISON: CT ABDOMEN PELVIS W 11/12/2019 7:06 PM FINDINGS: Liver: Normal. Gallbladder and bile ducts: Normal. Pancreas: Normal. Spleen: Normal. Adrenals: Normal. Kidneys and ureters: Normal. Stomach and bowel: Normal. Appendix: There has been prior appendectomy. Intraperitoneal space: No ascites, pneumoperitoneum or peritoneal lesion. Vasculature: No occlusion, dissection or aneuysm. Lymph nodes: No mesenteric, retroperitoneal or inguinal adenopathy. Bladder: Normal. Reproductive: Normal uterus and ovaries. Bones/joints: No fracture or suspicious osseous lesion. Soft tissues: No mass or hernia. IMPRESSION: No acute disease in the abdomen or pelvis. Normal, status post appendectomy. Dictated and Authenticated by: Dawson Rachel MD. Ordering:ANNIE Woodard MD
[2020-03-18 10:15] VITALS: BP 132/74; PULSE 97; RESP 22; TEMP 36.6; O2SAT 100
[2020-03-18 10:20] VITALS: BP 132/74; PULSE 97; RESP 22; TEMP 36.6; O2SAT 100
== END 2020-03-18 10:20 | disposition home or self-care (01) ==
PROVIDERS: Emergency Medicine; Emergency Provider Physician Assistant; PCP Nurse Practitioner Family
DX: R11.2 Nausea with vomiting, unspecified (principal); R10.13 Epigastric pain; R10.32 Left lower quadrant pain
CPT/HCPCS: 36415; 80053; 81025; 83690; 96361; 96365; 96375; 99285; 74177; 81003; 83735; 85025; 99284; J0780; J1630; J3490

== ENCOUNTER 2020-06-04 09:53 | Outpatient (REF) | payer MEDICAID, SELFPAY ==
[2020-06-04 22:46] LABS: Magnesium 2.1 mg/dL (1.8-2.4); TSH (W/Ref FT4) 3.07 uIU/mL (0.36-3.74); Vitamin B12 412 pg/mL (193-986)
== END 2020-06-04 10:13 ==
LOC: NCHCN 09:53
PROVIDERS: PCP Nurse Practitioner Family; Visit Provider Nurse Practitioner Family
DX: R51.9 Headache, unspecified (principal); F90.9 Attention-deficit hyperactivity disorder, unspecified type; E03.9 Hypothyroidism, unspecified; K58.9 Irritable bowel syndrome, unspecified; E66.9 Obesity, unspecified
CPT/HCPCS: 82607; 83735; 84443

== ENCOUNTER 2020-07-19 11:10 | Outpatient (CLI) | payer MEDICAID, SELFPAY ==
[2020-07-20 22:16] LABS: COVID-19 RT-PCR Result NEGATIVE (Negative)
== END 2020-07-19 11:30 ==
PROVIDERS: PCP Nurse Practitioner Family; Visit Provider Nurse Practitioner Family
DX: R05 Cough (principal); Z20.822 Contact with and (suspected) exposure to COVID-19
CPT/HCPCS: U0003

== ENCOUNTER 2020-07-23 16:39 | Outpatient (REF) | payer MEDICAID, SELFPAY ==
[2020-07-25 12:32] LABS: COVID-19 RT-PCR UVMMC Result Negative (Negative)
== END 2020-07-23 16:59 ==
LOC: NCHCN 16:39
PROVIDERS: PCP Nurse Practitioner Family; Visit Provider Nurse Practitioner Family
DX: R05 Cough (principal); Z20.822 Contact with and (suspected) exposure to COVID-19
CPT/HCPCS: U0003

== ENCOUNTER 2020-07-24 10:38 | Outpatient (CLI) | payer MEDICAID, SELFPAY ==
--- NOTE | 2020-07-24 13:10 | DI.RAD_ITS ---
EXAM: XR CHEST 2V PA LATERAL CLINICAL HISTORY: COUGH R05 TECHNIQUE: 2D digital imaging was performed. COMPARISON: CR,XR XR ABD FLAT UPRIGHT PA CHEST from 10/22/2019 FINDINGS: MEDIASTINUM: Normal. HEART: Normal. PULMONARY VASCULATURE: Normal. LUNGS: Clear. PLEURAL SPACE: No pleural effusion or pneumothorax. BONE:Normal. IMPRESSION: No acute pulmonary findings. DATA REPOSITORY: RADIATION DOSE DELIVERED:
== END 2020-07-24 10:58 ==
PROVIDERS: PCP Nurse Practitioner Family; Visit Provider Nurse Practitioner Family
DX: R05 Cough (principal)
CPT/HCPCS: 71046

== ENCOUNTER 2020-11-06 13:39 | Outpatient (REF) | payer MEDICAID, SELFPAY ==
[2020-11-07 11:28] LABS: COVID-19 RT-PCR UVMMC Result Negative (Negative)
== END 2020-11-06 13:40 | disposition home or self-care (01) ==
LOC: NCHCN 13:39
PROVIDERS: PCP Nurse Practitioner Family; Visit Provider Nurse Practitioner Family
DX: Z20.822 Contact with and (suspected) exposure to COVID-19 (principal)
CPT/HCPCS: U0003

== ENCOUNTER 2020-11-14 13:50 | Outpatient (REF) | payer MEDICAID, SELFPAY ==
[2020-11-14 14:20] LABS: HCT 39.7 % (36.0-46.0); HGB 13.5 g/dL (11.2-15.7); MCH 30.9 pg (27.0-33.0); MCV 90.8 fL (80-95); MPV 10.3 fL (8.0-11.0); Platelet Count 254 10^3/uL (130-400); RBC 4.37 10^6/uL (3.93-5.22); RDW 12.2 % (11.7-14.6); RDW-SD 40.8 fL
== END 2020-11-14 13:51 | disposition home or self-care (01) ==
LOC: NCHCN 13:50
PROVIDERS: PCP Nurse Practitioner Family; Visit Provider Nurse Practitioner Family
DX: D69.3 Immune thrombocytopenic purpura (principal)
CPT/HCPCS: 85027

== ENCOUNTER 2020-12-18 02:54 | Outpatient (CLI) | payer MEDICAID, SELFPAY ==
[2020-12-18 10:04] LABS: Source Nasal/Nares
[2020-12-18 12:28] LABS: COVID-19 PCR Negative (Negative)
== END 2020-12-18 02:55 | disposition home or self-care (01) ==
LOC: LBO 02:54
PROVIDERS: PCP Nurse Practitioner Family; Visit Provider Obstetrics & Gynecology Gynecology
DX: Z20.822 Contact with and (suspected) exposure to COVID-19 (principal); Z01.818 Encounter for other preprocedural examination
CPT/HCPCS: 87635

== ENCOUNTER 2020-12-18 03:07 | Outpatient (CLI) | payer MEDICAID, SELFPAY ==
[2020-12-18 09:25] LABS: HCT 40.6 % (36.0-46.0); HGB 13.8 g/dL (11.2-15.7); MCH 31.3 pg (27.0-33.0); MCV 92.1 fL (80-95); MPV 9.2 fL (8.0-11.0); Platelet Count 235 10^3/uL (130-400); RBC 4.41 10^6/uL (3.93-5.22); RDW 11.9 % (11.7-14.6); RDW-SD 40.3 fL
[2020-12-18 10:43] LABS: Anion Gap 9.2 mmol/L (3-11); BUN 8 mg/dL (7-18); CO2 27.8 mmol/L (21.0-32.0); CREATININE 0.9 mg/dL (0.55-1.02); Calcium 8.9 mg/dL (8.5-10.1); Chloride 106 mmol/L (98-107); Glucose 105 mg/dL (74-106); Potassium 4.3 mmol/L (3.5-5.1); Sodium 143 mmol/L (136-145)
[2020-12-18 10:50] LABS: HCG Qual (Serum) Negative
== END 2020-12-18 03:08 | disposition home or self-care (01) ==
LOC: LBO 03:07
PROVIDERS: PCP Nurse Practitioner Family; Visit Provider Obstetrics & Gynecology Gynecology
DX: Z01.818 Encounter for other preprocedural examination (principal); Z01.812 Encounter for preprocedural laboratory examination; N94.6 Dysmenorrhea, unspecified; N93.9 Abnormal uterine and vaginal bleeding, unspecified
CPT/HCPCS: 36415; 80048; 85027; 86850; 86900; 86901; 84703

== ENCOUNTER 2020-12-20 10:25 | Observation (INO) | payer MEDICAID, SELFPAY ==
[2020-12-20] VITALS (13 sets, daily range): BP systolic 76–124; BP diastolic 34–73; PULSE 63–90; RESP 9–18; TEMP 36.2–36.9; O2SAT 96–100; BMI 32.9
[2020-12-20] MEDS: Lactated Ringers 1,000 ML 125 ML IV ×2 (06:49→11:05)
--- NOTE | 2020-12-20 07:15 | W.ANESPRE ---
General Info Date of Service Date Performed: 12/20/20 Height: 5 ft 3 in Weight: 84.4 kg Body Mass Index (BMI): 32.9 Surgical Procedure: Operation Date: 12/20/20 07:40 Proposed Procedures Side Surgeon p Hysterectomy Vaginal Laparoscopic Assist with salpingectomy, bladder cysto Seema Cardenas MD Meds Allergies and Home Medications Allergies Allergy/AdvReac Type Severity Reaction Status Date / Time chocolate flavor Allergy Severe Painful Verified 12/18/20 11:20 tongue lamotrigine Allergy Unknown Verified 12/18/20 11:20 gluten AdvReac Severe Gi Upset Verified 12/18/20 11:20 ondansetron [From Zofran] AdvReac Intermediate Agitation Verified 12/20/20 06:17 lactase [From Dairy Aid] AdvReac Verified 12/18/20 11:20 peanut AdvReac Verified 12/18/20 11:20 pineapple AdvReac Verified 12/18/20 11:20 Yeast AdvReac Verified 12/18/20 11:20 Environmental Allergy Intermediate Runny Uncoded 12/18/20 11:20 nose, sneezing wheat AdvReac Uncoded 12/18/20 11:20 Home Medication Medication Instructions Recorded albuterol sulfate 1.25 mg IH QID PRN 10/11/18 etonogestrel 68 mg subdermal 1 implant SBD ONCE 10/11/18 implant fluticasone propionate 44 1 inh IH BID 10/11/18 mcg/actuation HFA aerosol inhaler famotidine 20 mg PO DAILY #14 tab 11/12/19 promethazine [Promethegan] 25 mg DE Q6H PRN #12 each 12/11/19 mirtazapine 45 mg PO QHS 12/12/19 escitalopram oxalate [Lexapro] 20 mg PO DAILY #30 tab 12/14/19 Current Visit Medications: Current Medications Generic Name Dose Route Start Last Admin Trade Name Freq PRN Reason Stop Dose Admin Ringer's Solution 1,000 mls @ 125 mls/hr 12/20/20 06:00 12/20/20 06:49 IV 01/18/21 23:59 125 mls/hr INFUSION MATIAS Administration Cefazolin Sodium/Dextrose 2 gm in 50 mls @ 100 mls/hr 12/20/20 06:00 Ancef Duplex IVPB 12/20/20 16:00 PREOP [facility] IV Miscellaneous Supplies 1 each 12/20/20 06:00 Iv Access IV 01/18/21 23:59 DIRECTED MATIAS Sodium Chloride 0 ml 12/20/20 06:00 Normal Saline Flush 10 Ml Syr IV 01/18/21 23:59 PRN PRN Sodium Chloride 0 ml 12/20/20 06:00 Normal Saline 10 Ml Vial IJ 01/18/21 23:59 DIRECTED PRN Sterile Water 0 ml 12/20/20 06:00 Water,Injection,Sterile 10 Ml Vial IJ 01/18/21 23:59 DIRECTED PRN PFSH Active Problems Active Problems: Problem Status Onset Code Preoperative general physical examination Z01.818 History of ITP Z86.[address] Z97.5 Dysmenorrhea N94.6 Abnormal uterine bleeding (AUB) N93.9 Menorrhagia N92.0 Leg pain, bilateral M79.604, M79.605 Maculopapular rash R21 Post traumatic stress disorder (PTSD) F43.10 Hypokalemia E87.6 Discharge planning issues Z02.9 DVT prophylaxis Z29.9 Asthma, intermittent J45.20 Anahi infection of flexural skin B37.2 Dehydration E86.0 Diarrhea R19.7 S/P laparoscopic appendectomy ~01/15/19 Z90.49 Medical History Medical History Abnormal uterine bleeding (AUB) MARK positive Asthma, intermittent Colitis Dysmenorrhea Esophageal reflux Fatty liver Fibromyalgia History of gluten intolerance History of IBS 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 Hypokalemia Menorrhagia Migraine Murmur, cardiac Nexplanon in place Obesity Post traumatic stress disorder (PTSD) Raynauds syndrome Rectal mass Sinus tachycardia Stress incontinence Subclinical hypothyroidism Surgical History Surgical History H/O colonoscopy x 2 H/O esophagogastroduodenoscopy x 2 S/P laparoscopic appendectomy (~01/15/19) Tobacco Smoking/Tobacco Use Status: Former Tobacco Use Alcohol Alcohol Intake: current Alcohol intake frequency: holidays/special occasions only Details: She denies use over the past week Substance Use Substance use: Daily Substance use type: marijuana Vital Signs and Lab Results Vital Signs Most Recent Vital Signs in EMR: Most Recent Vital Signs Temp Pulse Resp BP Pulse Ox 36.7 C 77 18 119/72 100 12/20/20 06:10 12/20/20 06:10 12/20/20 06:10 12/20/20 06:10 12/20/20 06:10 Lab Results Blood Type / Crossmatch: Patient ABO/Rh A Positive 12/18/20 09:15 12/18/20 Antibody Screen NEGATIVE 12/18/20 09:15 12/18/20 Complete Blood Count: White Blood Count 8.60 10^3/uL (4.4-10.8) 12/18/20 09:15 12/18/20 Red Blood Count 4.41 10^6/uL (3.93-5.22) 12/18/20 09:15 12/18/20 Hemoglobin 13.8 g/dL (11.2-15.7) 12/18/20 09:15 12/18/20 Hematocrit 40.6 % (36.0-46.0) 12/18/20 09:15 12/18/20 Platelet Count 235 10^3/uL (130-400) 12/18/20 09:15 12/18/20 Complete Metabolic Panel: Sodium Level 143 mmol/L (136-145) 12/18/20 09:15 12/18/20 Potassium Level 4.3 mmol/L (3.5-5.1) 12/18/20 09:15 12/18/20 Chloride Level 106 mmol/L (98-107) 12/18/20 09:15 12/18/20 Carbon Dioxide Level 27.8 mmol/L (21.0-32.0) 12/18/20 09:15 12/18/20 Blood Urea Nitrogen 8 mg/dL (7-18) 12/18/20 09:15 12/18/20 Creatinine 0.9 mg/dL (0.55-1.02) 12/18/20 09:15 12/18/20 Estimated GFR/1.73 m2 >= 60.00 (mL/min/1.73m2) 12/18/20 09:15 12/18/20 Calcium Level 8.9 mg/dL (8.5-10.1) 12/18/20 09:15 12/18/20 Glucose Level 105 mg/dL (74-106) 12/18/20 09:15 12/18/20 Liver Function Panel: No Data to Display Coagulation Panel: No Data to Display Cardiac Panel: No Data to Display Arterial Blood Gas: No Data to Display Venous Blood Gas: No Data to Display Pancreas Panel: No Data to Display Thyroid Panel: No Data to Display Infectious Disease: Coronavirus (COVID-19)(PCR) Negative (Negative) 12/18/20 09:18 12/18/20 Coronavirus 2019 Source Nasal/Nares 12/18/20 09:18 12/18/20 Blood Cultures: No Data to Display Toxicology Panel: No Data to Display Panel: Serum HCG, Qualitative Negative 12/18/20 09:15 12/18/20 Imaging and Studies Imaging and Studies Echocardiogram Summary: 05/2017: Summary: 1. Left ventricle: The cavity size was normal. Systolic function was normal. The estimated ejection fraction was 60-65%. 2. Mitral valve: There was mild regurgitation. 3. Right ventricle: The cavity size was normal. Wall thickness was normal. Systolic function was normal. 4. Atrial septum: No defect or patent foramen ovale was identified. 5. Pulmonary arteries: Pulmonary systolic pressure was in the range of 20mm Hg to 30mm Hg. 6. Inferior vena cava: The vessel was patent and normal in size. The respirophasic diameter changes were in the normal range (greater than or equal to 50%), consistent with normal central venous pressure. Anesthesia Assessment and Plan Anesthesia History Personal History: PONV Family History: No Family History of Anesthesia Complications Exercise Tolerance Exercise Tolerance: Metabolic Equivalents>4 Pertinent Negatives Pertinent Negatives: No Symptoms of GERD, No Major Cardiovascular Symptoms or Complaints and No Major Pulmonary Symptoms or Complaints Cardiac & Pulmonary Exam Cardiac Exam: Known Innocent Murmur Pulmonary Exam: Clear Bilateral Breath Sounds Airway Exam Known Difficult Airway: No Mallampati Class: 2 Mouth Opening: Normal (> 3cm) Thyromental Distance: Greater than 3 cm Neck Range of Motion: Full ROM Neck Circumference: Normal Teeth Condition: Normal Dentition ASA Classification ASA Score: ASA 2 Emergency Case?: No NPO Status NPO Status: NPO Clears >2 hours, Solids >8 hours Status Status: Negative HCG Anesthesia Plan Resuscitation Status: Full Code Anesthesia Technique: General Anesthesia Airway Planned: Endotracheal Tube Pain Management: Intrathecal Analgesia Monitors Used: Standard Monitors
[2020-12-20] MEDS: ceFAZolin 2 GM/50 ML BAG IVPB (08:07)
[2020-12-20] MEDS: Bupivacaine 0.25% Pres-Free 30 ML VIAL (09:26)
--- NOTE | 2020-12-20 09:32 | UTER_PTH ---
PATIENT: Daniela Ruiz LOC: OBS U#:[id number] AGE/SX: 30/F ROOM: OBS.305 RE12/20/[address]: Seema Cardenas : 1990 BED: A DIS: 12/21/2020 SPEC #: [id number] RECD: 12/20/20 12:36 STATUS: MARY REQ #: [id number] FRANCO: 12/20/20 09:[address]: Seema Cardensa DEPT: Surgical Specimen RECD BY: Gissell Queen ENTERED: 12/20/20 12:36 SP TYPE: UTER OTHR DR: Jessica Mohamud Tissues: 1 - UTERUS W OR W/O OVARIES(NOT TUMOR/PROLAPSE) Procedures: GROSS AND MICRO LEVEL 5 Comments: [id number]
--- NOTE | 2020-12-20 10:51 | W.PM.OP ---
Date of service: 12/20/20 Time of Service: 10:51 Operative Note Operative Note DATE OF PROCEDURE: 12/20/20 PRE-OP DIAGNOSIS: dysmenorrhea, abnormal uterine bleeding POST-OP DIAGNOSIS: same PROCEDURE: Laparoscopic-assisted vaginal hysterectomy with bilateral salpingectomy,bladder cystoscopy, and Nexplanon removal. INTERIOR SURFACE INSULATION WORKER: Xuan Fuller ANESTHESIA TYPE: General LMA/ETT and Spinal Refer to Anesthesia Record ESTIMATED BLOOD LOSS: 20 PATHOLOGY: other (Uterus, cervix, and fallopian tubes to pathology) COMPLICATIONS: None Patient was transported to: PACU Patient's condition: stable Indications: 30yo G0 female with a history of longstanding abnormal uterine bleeding and dysmenorrhea. Patient had unsuccessfully used OCPs and a Nexplanon device to control her abnormal uterine bleeding without success. Counseled the patient regarding other treatment options including LARC, endometrial ablation,and hysterectomy. She was clear in her reasons for declining LARC and stated that she had no intention of becoming in the future and wanted definitive therapy in the form of a hyster Findings: Small mobile uterus with normal-appearing adnexa. Normal upper abdomen appendix surgically absent. Question of endometriosis noted on serosal surface of anterior portion of the lower uterine segment. No pelvic adhesions initiated. Bimanual exam at time of surgery without evidence of a cystocele or uterine descent. At completion of procedure vaginal vault was well suspended Procedure Description: Patient was taken to the operating room where she was placed in the dorsal supine position and general endotracheal anesthesia was administered without difficulty. She was then placed in the dorsal lithotomy position in [facility] with SCDs in place. After being prepped and draped in the usual sterile fashion a surgical timeout was performed. Patel catheter was placed to gravity drainage. A bivalve speculum was placed in the vagina the anterior lip of the cervix was grasped with a single-tooth tenaculum. A Neha uterine manipulator was successfully inserted into the uterine cavity, the catheter bulb inflated with 3 cc of normal saline and the device left in place. Attention was then turned to the patient's abdomen. She received 2 g of Ancef prior to skin incision. The umbilical fold was infiltrated with quarter percent Marcaine without epinephrine. A scalpel was then used to make a 12mm vertical skin incision in the umbilical fold. Two penetrating towel clips were used to tent up the skin and through the periumbilical incision and a Veres needle was introduced into the abdomen with carbon dioxide as the distention medium. Intra-abdominal placement was confirmed by a drop in the intra-abdominal pressure. Once a pneumoperitoneum was established a 12 mm Visiport was placed under direct visualization and intra-abdominal placement confirmed by use of the laparoscope. Patient was then placed in Trendelenburg position. Two sites approximately 6 cm diagonally from the umbilical incision the skin were infiltrated with 1cc of 0.25% Marcaine without epinephrine, incised with a scalpel and two 5 mm lower ports were placed under direct visualization. After careful inspection of the pelvis a LigaSure electrocautery device was used to clamp, cauterize and transect the left mesosalpinx to the left isthmus of the left fallopian tube. Left ovarian ligament was then similarly clamped cauterized and transected from its attachment to the body of the uterus. The left round ligament and broad ligament were then clamped, cauterized and transected to the level of the lower uterine segment. The vesico-uterine peritoneum was incised and the the from the lower uterine segment and mobilized off of the body of the cervix. The pedicles of the suspensory, round and broad ligaments were inspected and noted to be hemostatic. On the contralateral side the right mesosalpinx, ovarian ligament, round, and right broad ligament were sequentially clamped, cauterized and transected using the Ligasure device to the level of the insertion of the uterine artery. The remaining the vesicouterine peritoneum was incised across the lower uterine segment and the bladder flap created using the Ligasure device and gently counter traction. All pedicles were inspected and noted to be hemostatic. Decision was made to proceed with the vaginal portion of the case. Laparoscopic instruments were removed from the ports , the pneumoperitoneum was reduced, and the was abdomen covered with sterile drape. A weighted vaginal speculum was placed in the vagina and the anterior and posterior lips of the cervix were grasped with Piper clamps. A solution of 1% lidocaine with dilute epinephrine was used to infiltrate the body of the cervix in a circumferential fashion followed by a circumferential incision of the cervical epithelium with Bovie electrocautery. The posterior cul-de-sac was entered sharply and through the this incision a right angle retractor was placed. The left and right uterosacral ligament complexes were identified clamped, transected and suture-ligated and the suture held long. The vesicouterine fascia was identified and the anterior cul-de-sac bluntly sharply. Through this incision a curved right angled retractor was inserted and used to retract the bladder away from the operative field. The remaining right and left broad ligament attatchments were sequentially clamped, cauterized, and transected and the specimen was passed off of the operative field. The vaginal cuff was reapproximated in a vertical fashion with a running suture of 2-0 Vicryl. Instruments removed from the vagina and attention was again turned to the abdomen where a pneumoperitoneum was reestablished and the pelvis inspected using the laparoscope. The vaginal cuff was intact and required two applications of the Ligasure device at the midline and R lateral margin of the vaginal cuff closure. The cuff was inspected again with abdominal pressure set at both 15mmHg and 5 mmHg and was hemostatic, as were the round ligament and broad ligament pedicles. The instruments were removed from the port sites, the pneumoperitoneum reduced and the ports removed. The fascia of the periumbilical skin incision was closed with interrupted suture of 0 Vicryl. The skin of all port site incisions were reapproximated with a subcuticular closure of 4-0 Monocryl and and covered with skin glue. A cystoscopy was performed with both ureteral jets patent with a brisk reflux of indigo carmine colored urine from each ureteral orifice . The bladder was inspected and no evidence of sutures were present. Patel catheter was reinserted to gravity drainage and the patient was placed in the dorsal supine position. After she was awakened and extubated the skin over the previous Nexplanon injection site on her left arem was cleansed with Betadine and the previous scar infiltrated with 0.5 cc of 1% lidocaine without epinephrine. A stab incision was made with the #11 blade at the previous insertion site. The fibrous attachments to the Nexplanon device were dissected away and the tip of the Nexplanon was delivered through the skin incision. It was grasped with a sterile snap and delivered intact. The incision was reapproximated with a skin glue and covered with a dry sterile dressing. Pt was then transported to recovery area in stable condition. All sponge lap needle counts correct x2.
--- NOTE | 2020-12-20 13:26 | W.ANESPOSTOP ---
Postoperative Evaluation Date, Time and Location Date Performed: 12/20/20 Time Performed: 13:26 Patient Location: Obstetrics Vital Signs Most Recent Imported Vital Signs: Most Recent Vital Signs Temp Pulse Resp BP Pulse Ox 36.9 C 66 16 100/61 99 12/20/20 12:44 12/20/20 12:44 12/20/20 12:44 12/20/20 12:44 12/20/20 12:44 Assessment Mental Status: Awake (Alert & Oriented to Patient Baseline) Airway and Respiratory Function: Patent airway with normal (patient baseline) respiratory exam Cardiovascular Function: Hemodynamically Stable Hydration Status: Adequately Hydrated Nausea & Vomiting: No Nausea or Vomiting Pain: Pt. Denies Any Pain Peripheral Nerve Block: Patient did not receive a nerve block
[2020-12-20] MEDS: diphenhydrAMINE 25 MG CAP PO (14:19)
[2020-12-20] MEDS: Mirtazapine 15 MG TAB 45 MG PO (22:10)
[2020-12-20] MEDS: Escitalopram 20 MG TAB PO (22:10)
[2020-12-20] MEDS: Famotidine 20 MG TAB PO (22:10)
[2020-12-20] MEDS: Acetaminophen 500 MG TAB PO (22:12)
[2020-12-21 04:35] VITALS: BP 116/58; PULSE 54; RESP 16; TEMP 36.7; O2SAT 98
[2020-12-21 07:18] LABS: HCT 36.6 % (36.0-46.0); HGB 12.7 g/dL (11.2-15.7); MCH 30.9 pg (27.0-33.0); MCHC 34.7 % (32.0-36.0); MCV 89.1 fL (80-95); MPV 9.5 fL (8.0-11.0); Platelet Count 240 10^3/uL (130-400); RBC 4.11 10^6/uL (3.93-5.22); RDW 11.8 % (11.7-14.6); RDW-SD 37.6 fL; WBC 13.76 10^3/uL (4.4-10.8)
[2020-12-21 07:31] LABS: ALT 22 U/L (14-59); AST 20 U/L (15-37); Albumin 3.4 g/dL (3.4-5.0); Alkaline Phosphatase 69 U/L (46-116); Anion Gap 9.3 mmol/L (3-11); BUN 7 mg/dL (7-18); Bilirubin, Total 0.3 mg/dL (0.2-1.0); CO2 25.7 mmol/L (21.0-32.0); CREATININE 0.8 mg/dL (0.55-1.02); Calcium 8.3 mg/dL (8.5-10.1); Chloride 105 mmol/L (98-107); Glucose 129 mg/dL (74-106); Potassium 3.9 mmol/L (3.5-5.1); Sodium 140 mmol/L (136-145); Total Protein 6.5 g/dL (6.4-8.2)
--- NOTE | 2020-12-21 07:58 | W.PM.DS.N ---
Date of service: 12/21/20 Time of Service: 07:59 DS: Diagnosis Discharge Diagnosis (1) Dysmenorrhea: Status: Acute (2) Abnormal uterine bleeding (AUB): Status: Acute (3) History of laparoscopy-assisted vaginal hysterectomy: Status: Acute Discharge Plan Disposition Patient Disposition: HOME Condition: Good Discharge Details Reason For Visit: Laparoscopic-Assisted Vaginal Hysterectomy Admit Date/Time: 12/20/20 10:25 Admit Provider: Seema Cardenas Attending Provider: Seema Cardenas Primary Care Provider: Jessica Mohamud Hospital Course Hospital Course: Patient was admitted the morning of surgery and underwent a laparoscopic-assisted vaginal hysterectomy bilateral salpingectomy. Her Nexplanon device was removed at the time of surgery. Bladder cystoscopy was performed after the hysterectomy. Postop course was uncomplicated she required no narcotic analgesics and was discharged home on postop day #1 successfully voiding and tolerating a regular diet. The plan is to have her follow-up with Dr. Cardenas approximately 2 weeks to assess her postop status and to review the anatomic pathology. Home Meds and New Rx's Prescriptions: Discontinued Nexplanon 68 mg implant 1 implant SBD ONCE RF: 0 No Action albuterol sulfate 2.5 mg /3 mL (0.083 %) solution for nebulization 1.25 mg IH QID PRNRF: 0 Flovent HFA 44 mcg/actuation HFA aerosol inhaler 1 inh IH BID RF: 0 mirtazapine 45 mg Tablet 45 mg PO QHS RF: 0 escitalopram oxalate [Lexapro] 20 mg Tablet 20 mg PO DAILY Qty: 30 RF: 0 famotidine 20 mg tablet 20 mg PO DAILY Qty: 14 RF: 0 promethazine [Promethegan] 25 mg suppository 25 mg IN Q6H PRN (Reason: nausea and vomiting) Qty: 12 RF: 0 Discharge Instructions Additional Instructions: Rest as much as possible. No heavy lifting (no greater than 10 pounds) for 2 weeks. No driving a car until you can safely apply the brakes during emergency. Return to the office in 2 weeks we will inspect your incisions and reviewed the pathology findings. Plan to restrict your activity for 6 weeks. Stand Alone Forms: [facility] Post Gynecology Surgery Referrals: Seema Cardenas MD [ [facility] STAFF PHYSICIAN] - 01/08/21 1:20 pm Activity:: Activity as Tolerated Equipment/Supplies:: No Equipment Needed Diet:: As Tolerated Discharge Orders Discharge Orders: Discharge Order (Routine); Ordered 12/21/20 Ordered By: Seema Cardenas DS: Summary Time Spent with Patient providing and/or coordinating discharge services: Less than 30 minutes Status at Discharge Functional status at discharge: independent ambulation Overall status at discharge: patient is progressing back to baseline Mental Status: mental status grossly normal Speech and Movement: speech and movement normal Mood: congruent mood Affect: normal affect Exam Const General: no acute distress Nutritional Appearance: overweight Orientation: alert, awake and oriented x3 Resp Effort & Inspection: normal respiratory effort Auscultation: clear to auscultation bilaterally Cardio Rate: regular rate Rhythm: regular rhythm GI Inspection: incision (Clean dry intact. Skin glue in place. ecchymosis post periumbilical incis) Palpation: soft and tender (Minimal tenderness no ecchymosis) periumbilically General: deferred Skin General skin exam: no rashes or lesions noted Extrem General: normal to inspection, capillary refill normal and no clubbing, cyanosis or edema Psych Appearance: grossly normal Mental Status: mental status grossly normal Speech and Movement: speech and movement normal Mood: congruent mood Affect: normal affect DS: Data Vitals/I&O Vitals and I&O: Vital Signs Temperature 98.1 F 12/21/20 04:35 Temperature Source Oral 12/21/20 04:35 Pulse 54 L 12/21/20 04:35 Pulse Rhythm Regular 12/20/20 19:43 Respiratory Rate 16 12/21/20 04:35 Respiratory Effort Non-Labored 12/20/20 19:43 Respiratory Depth Normal 12/20/20 19:43 Respiratory Pattern Normal 12/20/20 19:43 Blood Pressure 116/58 L 12/21/20 04:35 Pulse Oximetry 98 12/21/20 04:35 Respiratory End-tidal CO2 38 12/20/20 11:38 Oxygen Delivery Method Room Air 12/21/20 04:35 Oxygen Flow Rate 0 12/21/20 04:35 Pain Level 0 12/21/20 04:35 Comment 12/20/20 12:30 Intake & Output 12/20/20 12/20/20 12/21/20 11:59 23:59 11:59 Intake Total 1350 / 2050 700 / 0 Output Total 1000 / 1000 Balance 1350 / 1050 -300 / 1050 Weight 186 lb 1.122 oz Intake: IV 1350 / 0 / 0 Output: Urine 1000 / 1000 Other: Urine Color Yellow Yellow Urine Appearance Clear Urine Odor None Comment urine is light blue from dye used in procedure Emesis Description None Voiding Methods Toilet Data Completed and Pending Labs on day of discharge: Labs from last 24 hours 12/21/20 12/21/20 07:01 07:01 WBC 13.76 H RBC 4.11 Hgb 12.7 Hct 36.6 MCV 89.1 MCH 30.9 MCHC 34.7 RDW 11.8 Plt Count 240 MPV 9.5 Sodium 140 Potassium 3.9 Chloride 105 Carbon Dioxide 25.7 Anion Gap 9.3 BUN 7 Creatinine 0.8 Estimated GFR/1.73 m2 >= 60.00 Glucose 129 H Calcium 8.3 L Total Bilirubin 0.3 AST 20 ALT 22 Alkaline Phosphatase 69 Total Protein 6.5 Albumin 3.4 PFSH Medical History (Updated 12/21/20 @ 08:00 by Seema Cardenas MD) Abnormal uterine bleeding (AUB) 12/20/20. 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 Hypokalemia Menorrhagia Migraine Murmur, cardiac Obesity Post traumatic stress disorder (PTSD) Raynauds syndrome Rectal mass Sinus tachycardia Stress incontinence Subclinical hypothyroidism Surgical History (Updated 12/21/20 @ 08:00 by Seema Cardenas MD) H/O colonoscopy x 2 H/O esophagogastroduodenoscopy x 2 History of laparoscopy-assisted vaginal hysterectomy S/P laparoscopic appendectomy (~01/15/19) Family History Mother Polyp of colon Grandmother Diabetes Polyp of colon aunt Diabetes Polyp of colon uncle Diabetes Polyp of colon Social History Smoking/Tobacco Use Status: Former Tobacco Use Quit Date: 06/29/04 Smoking risk assessment performed?: Yes Alcohol Intake: current Alcohol Intake frequency: holidays/special occasions only Details: She denies use over the past week Drug use: Daily Substance use type: marijuana Do you feel safe at home: Yes Do you feel safe in your relationship?: Yes History History 0 Para Hx # Term Pregnancies Multiple births Hx # Pregnancies Ectopic pregnancies AB induced Hx Number of Living Children AB spontaneous
[2020-12-21] MEDS: Acetaminophen 500 MG TAB PO (08:24)
[2020-12-21] MEDS: Docusate Sodium 100 MG CAP PO (08:24)
[2020-12-21 08:28] VITALS: BP 117/78; PULSE 88; RESP 16; TEMP 36.6; O2SAT 100
== END 2020-12-21 12:30 | disposition home or self-care (01) ==
LOC: OBS 12-21 08:03
PROVIDERS: Admitting Provider Obstetrics & Gynecology Gynecology; PCP Nurse Practitioner Family; Visit Provider Obstetrics & Gynecology Gynecology
PROC: 0UT9FZZ Resection of Uterus, Via Natural or Artificial Opening With Percutaneous Endoscopic Assistance (ICD-10-PCS; CPT 58552; principal; 2020-12-20 07:30)
DX: N94.6 Dysmenorrhea, unspecified (principal); N93.9 Abnormal uterine and vaginal bleeding, unspecified; D25.9 Leiomyoma of uterus, unspecified; Z30.8 Encounter for other contraceptive management; F43.10 Post-traumatic stress disorder, unspecified; K76.0 Fatty (change of) liver, not elsewhere classified; M79.7 Fibromyalgia; E87.6 Hypokalemia; E66.9 Obesity, unspecified; I73.00 Raynaud's syndrome without gangrene; R00.0 Tachycardia, unspecified
CPT/HCPCS: 58552; 11982; 52000; 36415; 80053; 85027; 86850; 86900; 86901; 88307; J0690; J1100; J1885; J2001; J2250; J2370; J2405; J3010

== ENCOUNTER 2021-05-21 00:44 | Outpatient (CLI) | payer MEDICAID, SELFPAY ==
--- NOTE | 2021-05-21 | DI.US_ITS ---
Exam(s) US ABDOMEN EXAM: US ABDOMEN INDICATION: FATTY LIVER, K76.0 COMPARISON: US US ABDOMEN from 01/14/2019 TECHNIQUE: Ultrasound abdomen performed using standard protocol FINDINGS: Abdominal ultrasound was performed according to the usual protocol. The liver is normal in size and shape. No focal hepatic lesion seen. There is no evidence of cholelithiasis or biliary dilatation. No gallbladder wall thickening or peric holecystic fluid collection. Portal venous flow is hepatopetal. Pancreas appears intact as visualized. Spleen is unremarkable in appearance with no focal lesion. Kidneys are normal in size and shape. No renal mass, hydronephrosis, or nephrolithiasis. Abdominal aorta and IVC are of normal diameter. IMPRESSION: Negative abdominal ultrasound .
== END 2021-05-21 01:04 ==
PROVIDERS: PCP Nurse Practitioner Family; Visit Provider Nurse Practitioner Family
DX: K76.0 Fatty (change of) liver, not elsewhere classified (principal)
CPT/HCPCS: 76700

== ENCOUNTER 2021-06-20 10:50 | Outpatient (REF) | payer MEDICAID, SELFPAY ==
[2021-06-20 15:27] LABS: Magnesium 2.2 mg/dL (1.8-2.4); Vitamin B12 283 pg/mL (193-986)
== END 2021-06-20 10:51 | disposition home or self-care (01) ==
LOC: NCHCN 10:50
PROVIDERS: PCP Nurse Practitioner Family; Visit Provider Nurse Practitioner Family
DX: E03.9 Hypothyroidism, unspecified (principal); F41.9 Anxiety disorder, unspecified; N39.3 Stress incontinence (female) (male); K76.0 Fatty (change of) liver, not elsewhere classified; R20.2 Paresthesia of skin
CPT/HCPCS: 82607; 83735; 84443

== ENCOUNTER 2021-08-25 17:52 | Emergency (ER) | payer MEDICAID, SELFPAY ==
[2021-08-25 18:00] VITALS: BP 152/82; PULSE 80; RESP 17; TEMP 36.6; O2SAT 99
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
[2021-08-25] MEDS: Clindamycin 150 MG CAP, 12 CAPS/BTL 450 MG PO (18:40)
== END 2021-08-25 19:24 | disposition home or self-care (01) ==
PROVIDERS: Emergency Provider Nurse Practitioner Acute Care; PCP Nurse Practitioner Family
DX: K04.7 Periapical abscess without sinus (principal)
CPT/HCPCS: 99283

== ENCOUNTER 2021-08-28 21:54 | Outpatient (REF) | payer MEDICAID, SELFPAY ==
[2021-08-30 12:24] LABS: COVID-19 RT-PCR UVMMC Result Negative (Negative)
== END 2021-08-28 21:55 | disposition home or self-care (01) ==
LOC: LBN 21:54
PROVIDERS: PCP Nurse Practitioner Family; Visit Provider Physician Assistant Medical
DX: Z20.822 Contact with and (suspected) exposure to COVID-19 (principal); J06.9 Acute upper respiratory infection, unspecified
CPT/HCPCS: U0003

== ENCOUNTER 2021-08-29 05:23 | Emergency (ER) | payer MEDICAID, SELFPAY ==
[2021-08-29 05:31] VITALS: BP 139/83; PULSE 91; RESP 16; TEMP 36.7; O2SAT 100
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
[2021-08-29 05:55] LABS: Abs Immature Grans 0.03 10^3/uL (0.0-0.06); Absolute Basophil Count 0.05 10^3/uL (0.0-0.2); Absolute Eosinophil Count 0.14 10^3/uL (0.0-0.7); Absolute Lymphocyte Count 2.91 10^3/uL (1.2-3.4); Absolute Monocyte Count 0.62 10^3/uL (0.1-0.8); Absolute Neutrophil Count 5.98 10^3/uL (1.2-6.7); Basophils % 0.5; Eosinophils % 1.4; HCT 40.4 % (36.0-46.0); HGB 13.5 g/dL (11.2-15.7); Immature Grans % 0.3; Lymphocytes % 29.9; MCH 30.8 pg (27.0-33.0); MCHC 33.4 % (32.0-36.0); MCV 92.2 fL (80-95); MPV 8.9 fL (8.0-11.0); Monocytes % 6.4; Neutrophils % 61.5; Nucleated RBC 0 %; Platelet Count 280 10^3/uL (130-400); RBC 4.38 10^6/uL (3.93-5.22); RDW 11.8 % (11.7-14.6); RDW-SD 40.1 fL; WBC 9.73 10^3/uL (4.4-10.8)
[2021-08-29] MEDS: Normal Saline 1,000 ML 1000 ML IV (05:59)
[2021-08-29 06:09] LABS: ALT 23 U/L (14-59); AST 20 U/L (15-37); Alkaline Phosphatase 72 U/L (46-116); Anion Gap 10.4 mmol/L (3-11); BUN 8 mg/dL (7-18); Bilirubin, Total 0.7 mg/dL (0.2-1.0); CO2 26.6 mmol/L (21.0-32.0); Calcium 8.8 mg/dL (8.5-10.1); Chloride 103 mmol/L (98-107); Glucose 115 mg/dL (74-106); Lipase 114 U/L (73-393); Potassium 3.4 mmol/L (3.5-5.1); Sodium 140 mmol/L (136-145); Total Protein 7.5 g/dL (6.4-8.2)
[2021-08-29] MEDS: Metoclopramide 10 MG/2 ML VIAL IVP (06:37)
[2021-08-29] MEDS: Ondansetron 4 MG/2 ML VIAL IVP (07:26)
== END 2021-08-29 07:41 | disposition home or self-care (01) ==
PROVIDERS: Emergency Provider Student in an Organized Health Care Education/Training Program; PCP Nurse Practitioner Family
DX: R11.10 Vomiting, unspecified (principal); R10.12 Left upper quadrant pain
CPT/HCPCS: 80053; 83690; 96361; 96365; 96375; 99284; 85025; 99283; J2405; J2765

== ENCOUNTER 2021-11-26 13:22 | Outpatient (CLI) | payer MEDICAID, SELFPAY ==
[2021-11-26 09:49] LABS: Abs Immature Grans 0.02 10^3/uL (0.0-0.06); Absolute Basophil Count 0.03 10^3/uL (0.0-0.2); Absolute Eosinophil Count 0.16 10^3/uL (0.0-0.7); Absolute Lymphocyte Count 2.19 10^3/uL (1.2-3.4); Absolute Monocyte Count 0.55 10^3/uL (0.1-0.8); Absolute Neutrophil Count 4.18 10^3/uL (1.2-6.7); Basophils % 0.4; Eosinophils % 2.2; HCT 37.7 % (36.0-46.0); Immature Grans % 0.3; Lymphocytes % 30.7; MCH 31.1 pg (27.0-33.0); MCHC 34.5 % (32.0-36.0); MCV 90 fL (80-95); MPV 9.1 fL (8.0-11.0); Monocytes % 7.7; Neutrophils % 58.7; Platelet Count 233 10^3/uL (130-400); RBC 4.18 10^6/uL (3.93-5.22); RDW-SD 39.6 fL; WBC 7.13 10^3/uL (4.4-10.8)
== END 2021-11-26 13:23 | disposition home or self-care (01) ==
LOC: LBO 13:25
PROVIDERS: PCP Nurse Practitioner Family; Visit Provider Nurse Practitioner Family
DX: D69.3 Immune thrombocytopenic purpura (principal)
CPT/HCPCS: 36415; 85025

== ENCOUNTER 2021-12-03 06:28 | PSDC | payer MEDICAID, SELFPAY ==
[2021-12-03] VITALS (8 sets, daily range): BP systolic 84–126; BP diastolic 46–71; PULSE 69–98; RESP 15–16; TEMP 36.3–36.6; O2SAT 96–99; BMI 30.4
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
[2021-12-03] MEDS: Lactated Ringers 1,000 ML 80 ML IV (07:22)
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
[2021-12-03] MEDS: ceFAZolin 2 GM/50 ML BAG IVPB (07:30)
--- NOTE | 2021-12-03 07:39 | W.PM.DSUDISC ---
Discharge Plan Disposition Patient Disposition: HOME Condition: Good Discharge Details Reason For Visit: ECTR Attending Provider: Yovani Negro Primary Care Provider: Jessica Mohamud Home Meds and New Rx's Prescriptions: New ibuprofen 600 mg tablet 600 mg PO TID Qty: 30 0RF acetaminophen 500 mg capsule 1,000 mg PO Q8H PRN PRNQty: 30 0RF hydrocodone-acetaminophen 5-325 mg tablet 1 tab PO Q6H PRNQty: 5 0RF Continued albuterol sulfate 2.5 mg /3 mL (0.083 %) solution for nebulization 1.25 mg IH QID PRN bupropion HCl [Wellbutrin XL] 300 mg tablet extended release 24 hr 300 mg PO QAM methylphenidate HCl [Concerta] 36 mg tablet extended release 24hr 36 mg PO DAILY omeprazole 20 mg capsule,delayed release(DR/EC) 20 mg PO DAILY PRN mirtazapine 30 mg tablet 15 mg PO QHS famotidine 20 mg tablet 20 mg PO DAILY Qty: 14 0RF Discharge Instructions Stand Alone Forms: Sruthi Garcia Tunnel Release Activity:: Activity as Tolerated Remove Dressings/Wound Care:: 48 hours Shower/Bathe:: 48 hours Activity:: Activity as Tolerated Diet:: As Tolerated Discharge Orders Discharge Orders: Discharge Order (Routine); Ordered 12/03/21 Ordered By: Lorelei Kim DS: Diagnosis Discharge Diagnosis (1) Bilateral carpal tunnel syndrome: Status: Acute
[2021-12-03] MEDS: Sodium Bicarbonate 50 MEQ/50 ML VIAL (07:45)
[2021-12-03] MEDS: Lidocaine 1% Multi-Dose W/EPI 1/100,000 50 ML VIAL (07:45)
[2021-12-03] MEDS: ePHEDrine 50 MG/ML VIAL 25 MG IM (08:10)
--- NOTE | 2021-12-03 08:14 | ROE_ITS ---
Date of service: 12/03/21 Time of Service: 07:45 Operative Note Operative Note DATE OF PROCEDURE: 12/03/21 PRE-OP DIAGNOSIS: Left Carpal Tunnel Syndrome POST-OP DIAGNOSIS: same PROCEDURE: Left Endoscopic Carpal Tunnel Release SURGEON: Yovani Negro ANESTHESIA TYPE: General:No Airway Refer to Anesthesia Record ESTIMATED BLOOD LOSS: 0 PATHOLOGY: none sent TOURNIQUET TIME: 4 COMPLICATIONS: None Patient was transported to: same day Patient's condition: stable Indications: I have seen Daniela in clinic for symptoms of carpal tunnel syndrome. The numbness, tingling, and pain limited function. Clinical exam findings with nerve conduction tests confirmed the diagnosis of carpal tunnel syndrome. Nonoperative measures such as bracing, time, activity modifications had been tried but disability and pain persisted. I discussed carpal tunnel release with the patient. I reviewed the risks of the procedure to include, but not limited to, bleeding, infection, pain, stiffness, incomplete release, damage to nerves or vessels, persistent numbness, recurrence. Despite these risks, the patient elected to proceed. Findings: There was tightened carpal tunnel. This was dilated and released successfully with the endoscopic with increased space within the tunnel. The antebrachial fascia was released proximally freeing the median nerve at the wrist. Procedure Description: Daniela was greeted in the preoperative holding area where the correct side was identified and marked. The consent was reviewed with the patient and signed. The history and physical was updated. All questions were answered. She was taken back to the operating room. The patient was placed into the supine position on the operating room table with the left arm on an arm board. A nonsterile tourniquet was placed high onto the arm. All bony prominences were well padded. Prophylactic antibiotics in the form of Cefazolin were administered. The left arm was then prepped with Chloraprep and draped in a standard fashion with stockinette and extremity drape. A timeout to confirm correct identity, side and site, procedure, allergies, anesthesia, and medical concerns was performed. The surgical site was marked in the volar wrist creases in line with the radial border of the fourth ray. This area was anesthetized with approximately 6cc of 1% Lidocaine. The limb was then exsanguinated with an Esmarch. The skin was incised with a 15 blade, approximately 1cm. The skin only was cut and the deeper tissue was dissected bluntly with a tenotomy scissor, avoiding passing nerve and venous structures. The fascia was penetrated and opened bluntly. A two-prong skin hook was placed under this proximal fascial edge. A series of hamate finders were used to identify and dilate the carpal tunnel. Synovial elevator was used to free synovial attachments to the underside of the transverse carpal ligament. My thumb was kept in the palm to jose the distal extent of the carpal tunnel and correctly position the hand. The Microaire end oscope was inserted without difficulty and without resistance. Excellent visualization showed horizontally running fibers of the transverse carpal ligament (TCL). The distal extent of the TCL was visualized and the end of the scope palpated with the thumb. The blade was elevated and withdrawn from distal to proximal. The TCL was split into two flaps. The endoscope was reinserted to confirm complete release and any remnant ligament was incised. The scope was withdrawn and the proximal aspect of the carpal tunnel was grossly inspected and appeared release with the median nerve visible. The antebrachial fascia at the level of the wrist was then freed from the overlying skin and then the underlying median nerve with blunt dissection. This was transected longitudinally for about 3cm proximal to the wrist incision. The wound was then irrigated with easy flow of irrigant distally and proximally. The incision was closed with a single 4-0 Nylon suture. The wound was dressed with Xeroform, Gauze, Kerlix and Jemal. The tourniquet was deflated with the initial dressing and held with some pressure. Blood flow returned easily to all digits with capillary refill less than 2 seconds. The patient tolerated the procedure well and was returned to the Same Day Surgery area in a stable condition suffering no known complication.
--- NOTE | 2021-12-03 09:04 | W.ANESPOSTOP ---
Postoperative Evaluation Date, Time and Location Date Performed: 12/03/21 Time Performed: 09:05 Patient Location: Day Surgery Unit Vital Signs Most Recent Imported Vital Signs: Most Recent Vital Signs Temp Pulse Resp BP Pulse Ox 36.3 C L 84 16 117/63 97 12/03/21 08:40 12/03/21 08:40 12/03/21 08:40 12/03/21 08:40 12/03/21 08:40 Pain Score Most Recent Pain Score: Most Recent Pain Score Pain Level 0 12/03/21 08:40 Assessment Mental Status: Arousable with meaningful communication Airway and Respiratory Function: Patent airway with normal (patient baseline) respiratory exam Cardiovascular Function: Hemodynamically Stable Hydration Status: Adequately Hydrated Nausea & Vomiting: No Nausea or Vomiting Pain: Pain is tolerable per patient Peripheral Nerve Block: Patient did not receive a nerve block
== END 2021-12-03 09:27 | disposition home or self-care (01) ==
PROVIDERS: PCP Nurse Practitioner Family; Visit Provider Student in an Organized Health Care Education/Training Program
PROC: 01N54ZZ Release Median Nerve, Percutaneous Endoscopic Approach (ICD-10-PCS; CPT 29848; principal; 2021-12-03 07:30)
DX: G56.03 Carpal tunnel syndrome, bilateral upper limbs (principal); E87.6 Hypokalemia; I73.00 Raynaud's syndrome without gangrene
CPT/HCPCS: 29848; J0690; J2250

== ENCOUNTER 2021-12-10 06:14 | Day surgery (SDC) | payer MEDICAID, SELFPAY ==
[2021-12-10] VITALS (7 sets, daily range): BP systolic 85–112; BP diastolic 35–68; PULSE 58–88; RESP 14–17; TEMP 36.1–36.4; O2SAT 94–100; BMI 29.0
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
--- NOTE | 2021-12-10 07:04 | W.PM.DSUDISC ---
Discharge Plan Disposition Patient Disposition: HOME Condition: Good Discharge Details Reason For Visit: Right Carpal Tunnel Syndrome Attending Provider: Yovani Negro Primary Care Provider: Jessica Mohamud Home Meds and New Rx's Prescriptions: Continued albuterol sulfate 2.5 mg /3 mL (0.083 %) solution for nebulization 1.25 mg IH QID PRN bupropion HCl [Wellbutrin XL] 300 mg tablet extended release 24 hr 300 mg PO QAM methylphenidate HCl [Concerta] 36 mg tablet extended release 24hr 36 mg PO DAILY omeprazole 20 mg capsule,delayed release(DR/EC) 20 mg PO DAILY PRN mirtazapine 30 mg tablet 15 mg PO QHS Label Comments: no longer taking acetaminophen 500 mg capsule 1,000 mg PO Q8H PRN PRNQty: 30 0RF famotidine 20 mg tablet 20 mg PO DAILY Qty: 14 0RF escitalopram oxalate [Lexapro] 20 mg Tablet 20 mg PO DAILY hydrocodone-acetaminophen 5-325 mg tablet 1 tab PO Q6H PRNQty: 5 0RF ibuprofen 600 mg tablet 600 mg PO TID Qty: 30 0RF Discharge Instructions Stand Alone Forms: Sruthi Garcia Tunnel Release Referrals: Yovani Negro MD [ [facility] STAFF PHYSICIAN] - Activity:: Elevate Remove Dressings/Wound Care:: 48 hours Shower/Bathe:: 48 hours Diet:: As Tolerated Discharge Orders Discharge Orders: Discharge Order (Routine); Ordered 12/10/21 Ordered By: Yovani Negro
[2021-12-10] MEDS: Lactated Ringers 1,000 ML 80 ML IV (07:05)
[2021-12-10] MEDS: ceFAZolin 2 GM/50 ML BAG IVPB (07:12)
--- NOTE | 2021-12-10 07:17 | NUR.NOTE ---
0710: Pt. told Rigoberto Chao CRNA, she wasnt feeling like she needed the phenergan this am, discussion about other meds that will be given, pt. states she doesnt want phenergan orderedNursing Note:
[2021-12-10] MEDS: Lidocaine 1% Multi-Dose W/EPI 1/100,000 50 ML VIAL (07:25)
[2021-12-10] MEDS: Sodium Bicarbonate 50 MEQ/50 ML VIAL (07:26)
[2021-12-10] MEDS: HYDROcodone 5/Acetaminophen 325 TAB PO (08:55)
--- NOTE | 2021-12-10 09:16 | W.PM.OP ---
Date of service: 12/10/21 Time of Service: 07:35 Operative Note Operative Note DATE OF PROCEDURE: 12/10/21 PRE-OP DIAGNOSIS: Right Carpal Tunnel Syndrome POST-OP DIAGNOSIS: same PROCEDURE: Right Endoscopic Carpal Tunnel Release SURGEON: Yovani Negro ANESTHESIA TYPE: General:No Airway Refer to Anesthesia Record ESTIMATED BLOOD LOSS: 0 PATHOLOGY: none sent TOURNIQUET TIME: 7 COMPLICATIONS: None Patient was transported to: same day Patient's condition: stable Indications: I have seen Daniela in clinic for symptoms of carpal tunnel syndrome. The numbness, tingling, and pain limited function. Clinical exam findings with nerve conduction tests confirmed the diagnosis of carpal tunnel syndrome. Nonoperative measures such as bracing, time, activity modifications had been tried but disability and pain persisted. She had the left side released one week prior with good results. I discussed carpal tunnel release with the patient. I reviewed the risks of the procedure to include, but not limited to, bleeding, infection, pain, stiffness, incomplete release, damage to nerves or vessels, persistent numbness, recurrence. Despite these risks, the patient elected to proceed. Findings: There was tightened carpal tunnel. Inside the carpal tunnel was significant amount of synovitis which made visualization more challenging than usual. This was dilated and released successfully with the endoscopic with increased space within the tunnel. The antebrachial fascia was released proximally freeing the median nerve at the wrist. Procedure Description: Daniela was greeted in the preoperative holding area where the correct side was identified and marked. The consent was reviewed with the patient and signed. The history and physical was updated. All questions were answered. She was taken back to the operating room. The patient was placed into the supine position on the operating room table with the right arm on an arm board. A nonsterile tourniquet was placed high onto the arm. All bony prominences were well padded. Prophylactic antibiotics in the form of Cefazolin were administered. The right arm was then prepped with Chloraprep and draped in a standard fashion with stockinette and extremity drape. A timeout to confirm correct identity, side and site, procedure, allergies, anesthesia, and medical concerns was performed. The surgical site was marked in the volar wrist creases in line with the radial border of the fourth ray. This area was anesthetized with approximately 6cc of 1% Lidocaine. The limb was then exsanguinated with an Esmarch. The skin was incised with a 15 blade, approximately 1cm. The skin only was cut and the deeper tissue was dissected bluntly with a tenotomy scissor, avoiding passing nerve and venous structures. The fascia was penetrated and opened bluntly. A two-prong skin hook was placed under this proximal fascial edge. A series of hamate finders were used to identify and dilate the carpal tunnel. Synovial elevator was used to free synovial attachments to the underside of the transverse carpal ligament. My thumb was kept in the palm to jose the distal extent of the carpal tunnel and correctly position the hand. The Microaire endoscope was inserted without difficulty and without resistance. There was abundant synovium in the carpal tunnel which took multiple passes with the elevator to release. After this, I was able to obtain good visualization showing horizontally running fibers of the transverse carpal ligament (TCL). The distal extent of the TCL was visualized and the end of the scope palpated with the thumb. The blade was elevated and withdrawn from distal to proximal. The TCL was split into two flaps. The endoscope was reinserted to confirm complete release and any remnant ligament was incised. The scope was withdrawn and the proximal aspect of the carpal tunnel was grossly inspected and appeared release with the median nerve visible. The antebrachial fascia at the level of the wrist was then freed from the overlying skin and then the underlying median nerve with blunt dissection. This was transected longitudinally for about 3cm proximal to the wrist incision. The wound was then irrigated with easy flow of irrigant distally and proximally. The incision was closed with a single 4-0 Nylon suture. The wound was dressed with Xeroform, Gauze, Kerlix and Jemal. The tourniquet was deflated with the initial dressing and held with some pressure. Blood flow returned easily to all digits with capillary refill less than 2 seconds. The patient tolerated the procedure well and was returned to the Same Day Surgery area in a stable condition suffering no known complication.
--- NOTE | 2021-12-10 09:49 | W.ANESPOSTOP ---
Postoperative Evaluation Date, Time and Location Date Performed: 12/10/21 Time Performed: 09:00 Patient Location: Day Surgery Unit Vital Signs Most Recent Imported Vital Signs: Most Recent Vital Signs Temp Pulse Resp BP Pulse Ox 36.1 C L 68 16 109/57 L 100 12/10/21 08:43 12/10/21 08:43 12/10/21 08:43 12/10/21 08:43 12/10/21 08:43 Pain Score Most Recent Pain Score: Most Recent Pain Score Pain Level 4 12/10/21 08:43 Assessment Mental Status: Awake (Alert & Oriented to Patient Baseline) Airway and Respiratory Function: Patent airway with normal (patient baseline) respiratory exam Cardiovascular Function: Hemodynamically Stable Hydration Status: Adequately Hydrated Nausea & Vomiting: No Nausea or Vomiting Pain: Pain is tolerable per patient Peripheral Nerve Block: Patient did not receive a nerve block
== END 2021-12-10 09:26 | disposition home or self-care (01) ==
PROVIDERS: PCP Nurse Practitioner Family; Visit Provider Student in an Organized Health Care Education/Training Program
PROC: 01N54ZZ Release Median Nerve, Percutaneous Endoscopic Approach (ICD-10-PCS; CPT 29848; principal; 2021-12-10 07:30)
DX: G56.01 Carpal tunnel syndrome, right upper limb (principal); D69.3 Immune thrombocytopenic purpura; J45.909 Unspecified asthma, uncomplicated; F41.8 Other specified anxiety disorders; I73.00 Raynaud's syndrome without gangrene
CPT/HCPCS: 29848; J0690; J2250; J2405; J2704

== ENCOUNTER 2021-12-19 10:10 | Outpatient (CLI) | payer MEDICAID, SELFPAY ==
[2021-12-19 09:42] LABS: Abs Immature Grans 0.01 10^3/uL (0.0-0.06); Absolute Basophil Count 0.05 10^3/uL (0.0-0.2); Absolute Eosinophil Count 0.15 10^3/uL (0.0-0.7); Absolute Lymphocyte Count 1.93 10^3/uL (1.2-3.4); Absolute Monocyte Count 0.47 10^3/uL (0.1-0.8); Absolute Neutrophil Count 3.94 10^3/uL (1.2-6.7); Basophils % 0.8; Eosinophils % 2.3; HCT 36.7 % (36.0-46.0); HGB 12.6 g/dL (11.2-15.7); Immature Grans % 0.2; Lymphocytes % 29.5; MCH 31.3 pg (27.0-33.0); MCHC 34.3 % (32.0-36.0); MCV 91 fL (80-95); MPV 9.4 fL (8.0-11.0); Monocytes % 7.2; Platelet Count 235 10^3/uL (130-400); RBC 4.03 10^6/uL (3.93-5.22); RDW-SD 40.5 fL; WBC 6.55 10^3/uL (4.4-10.8)
== END 2021-12-19 10:11 | disposition home or self-care (01) ==
LOC: LBO 10:10
PROVIDERS: PCP Nurse Practitioner Family; Visit Provider Nurse Practitioner Family
DX: R23.8 Other skin changes (principal)
CPT/HCPCS: 36415; 85025

== ENCOUNTER 2022-03-25 21:05 | Outpatient (REF) | payer MEDICAID, SELFPAY | END 2022-03-25 21:06 | disposition home or self-care (01) | LOC: LBN 21:05 | PROVIDERS: PCP Nurse Practitioner Family; Visit Provider Nurse Practitioner Family | DX: N89.8 Other specified noninflammatory disorders of vagina (principal) | CPT/HCPCS: 87070; 87205 ==

== ENCOUNTER 2022-05-01 09:19 | Outpatient (REF) | payer MEDICAID, SELFPAY ==
--- NOTE | 2022-05-01 08:15 | SKI_PTH ---
PATIENT: Daniela Ruiz LOC: [facility] U#:[id number] AGE/SX: 31/F ROOM: RE05/01/[address]: Jessica Mohamud : 1990 BED: DIS: 05/01/2022 SPEC #: [id number] RECD: 05/01/22 18:22 STATUS: MARY FLORES #: [id number] FRANCO: 05/01/22 08:[address]: Jessica Mohamud DEPT: Surgical Specimen RECD BY: Gissell Queen Tissues: 1 - SKIN BIOPSY(SHAVE/PUNCH) 2 - SKIN BIOPSY(SHAVE/PUNCH) Procedures: SKIN LEVEL 4 Comments: [id number]
== END 2022-05-01 09:20 | disposition home or self-care (01) ==
LOC: NCHCN 09:19
PROVIDERS: PCP Nurse Practitioner Family; Visit Provider Nurse Practitioner Family
DX: L98.8 Other specified disorders of the skin and subcutaneous tissue (principal)
CPT/HCPCS: 88305

== ENCOUNTER 2022-12-20 18:18 | Emergency (ER) | payer MEDICAID, SELFPAY ==
[2022-12-20 18:22] VITALS: BP 118/72; PULSE 110; RESP 18; TEMP 37; O2SAT 100
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
[2022-12-20] MEDS: Prochlorperazine 10 MG/2 ML VIAL IVP (18:49)
[2022-12-20] MEDS: Lactated Ringers 2,000 ML 1000 ML IV (18:49)
[2022-12-20 18:55] LABS: Abs Immature Grans 0.02 10^3/uL (0.0-0.06); Absolute Basophil Count 0.05 10^3/uL (0.0-0.2); Absolute Eosinophil Count 0.07 10^3/uL (0.0-0.7); Absolute Lymphocyte Count 2.14 10^3/uL (1.2-3.4); Absolute Monocyte Count 0.42 10^3/uL (0.1-0.8); Absolute Neutrophil Count 7.34 10^3/uL (1.2-6.7); Basophils % 0.5; Eosinophils % 0.7; HCT 39.2 % (36.0-46.0); HGB 14.1 g/dL (11.2-15.7); Immature Grans % 0.2; Lymphocytes % 21.3; MCH 31.4 pg (27.0-33.0); MCV 87 fL (80-95); MPV 9.3 fL (8.0-11.0); Monocytes % 4.2; Neutrophils % 73.1; Platelet Count 250 10^3/uL (130-400); RBC 4.49 10^6/uL (3.93-5.22); RDW 11.1 % (11.7-14.6); RDW-SD 35.9 fL; WBC 10.04 10^3/uL (4.4-10.8)
[2022-12-20] MEDS: diphenhydrAMINE 50 MG/ML VIAL IVP (19:11)
[2022-12-20 19:12] LABS: ALT 20 U/L (14-59); AST 18 U/L (15-37); Albumin 4.7 g/dL (3.4-5.0); Alkaline Phosphatase 62 U/L (46-116); Anion Gap 10.2 mmol/L (3-11); BUN 7 mg/dL (7-18); Bilirubin, Total 1.2 mg/dL (0.2-1.0); CO2 26.8 mmol/L (21.0-32.0); CREATININE 0.7 mg/dL (0.55-1.02); Calcium 9.2 mg/dL (8.5-10.1); Chloride 103 mmol/L (98-107); Estimated GFR 116.31 (mL/min/1.73m2); Glucose 101 mg/dL (74-106); Lipase 28 U/L (16-77); Potassium 3.7 mmol/L (3.5-5.1); Sodium 140 mmol/L (136-145); Total Protein 7.8 g/dL (6.4-8.2)
[2022-12-20 19:52] VITALS: BP 114/70; PULSE 72; RESP 16; O2SAT 99
== END 2022-12-20 19:53 | disposition home or self-care (01) ==
PROVIDERS: Emergency Provider Emergency Medicine; PCP Nurse Practitioner Family
DX: R11.2 Nausea with vomiting, unspecified (principal)
CPT/HCPCS: 36415; 80053; 83690; 96361; 96374; 96375; 99284; 83735; 85025; J0780; J1200

== ENCOUNTER 2023-12-07 05:51 | Emergency (ER) | payer MEDICAID, SELFPAY ==
[2023-12-07 05:54] VITALS: BP 127/96; PULSE 84; RESP 16; TEMP 36.8; O2SAT 100
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
[2023-12-07] MEDS: ACETAMINOPHEN 1,000 MG/100 ML BTL 400 MG IVPB (06:28)
[2023-12-07] MEDS: diphenhydrAMINE 50 MG/ML VIAL IVP (06:29)
[2023-12-07] MEDS: methylPREDNISolone SUCC 125 MG VIAL IVP (06:30)
[2023-12-07] MEDS: Lactated Ringers 1,000 ML 1000 ML IV (06:30)
[2023-12-07 06:32] LABS: Abs Immature Grans 0.02 10^3/uL (0.0-0.06); Absolute Basophil Count 0.05 10^3/uL (0.0-0.2); Absolute Eosinophil Count 0.22 10^3/uL (0.0-0.7); Absolute Lymphocyte Count 2.23 10^3/uL (1.2-3.4); Absolute Monocyte Count 0.37 10^3/uL (0.1-0.8); Absolute Neutrophil Count 3.57 10^3/uL (1.2-6.7); Basophils % 0.8 %; Eosinophils % 3.4 %; HCT 38.3 % (36.0-46.0); HGB 13.3 g/dL (11.2-15.7); Immature Grans % 0.3 %; Lymphocytes % 34.5 %; MCH 31.2 pg (27.0-33.0); MCHC 34.7 % (32.0-36.0); MCV 90 fL (80-95); Monocytes % 5.7 %; Neutrophils % 55.3 %; Platelet Count 227 10^3/uL (130-400); RBC 4.26 10^6/uL (3.93-5.22); RDW 11.5 % (11.7-14.6); RDW-SD 37.4 fL; WBC 6.46 10^3/uL (4.4-10.8)
[2023-12-07] MEDS: Prochlorperazine 10 MG/2 ML VIAL IVP (06:36)
[2023-12-07 06:52] LABS: ALT 21 U/L (14-59); AST 17 U/L (15-37); Albumin 4.4 g/dL (3.4-5.0); Alkaline Phosphatase 53 U/L (46-116); Anion Gap 12.5 mmol/L (3-11); BUN 6 mg/dL (7-18); Bilirubin, Total 0.5 mg/dL (0.2-1.0); CO2 26.5 mmol/L (21.0-32.0); CREATININE 0.8 mg/dL (0.55-1.02); Calcium 8.5 mg/dL (8.5-10.1); Chloride 102 mmol/L (98-107); Estimated GFR 98.48 (mL/min/1.73m2); Glucose 112 mg/dL (74-106); Potassium 3.4 mmol/L (3.5-5.1); Sodium 141 mmol/L (136-145); Total Protein 7.3 g/dL (6.4-8.2)
[2023-12-07 07:36] VITALS: BP 113/63; PULSE 77; RESP 16; TEMP 36.3; O2SAT 97
== END 2023-12-07 07:39 | disposition home or self-care (01) ==
PROVIDERS: Emergency Provider Student in an Organized Health Care Education/Training Program; PCP Nurse Practitioner Family
DX: G43.909 Migraine, unspecified, not intractable, without status migrainosus (principal); Z87.891 Personal history of nicotine dependence
CPT/HCPCS: 80053; 96361; 96374; 96375; 99284; 85025; 99283; J0131; J0780; J1200; J2919

== ENCOUNTER 2023-12-22 03:22 | Outpatient (CLI) | payer MEDICAID, SELFPAY ==
[2023-12-22 14:33] LABS: Abs Immature Grans 0.02 10^3/uL (0.0-0.06); Absolute Basophil Count 0.05 10^3/uL (0.0-0.2); Absolute Eosinophil Count 0.14 10^3/uL (0.0-0.7); Absolute Lymphocyte Count 2.55 10^3/uL (1.2-3.4); Absolute Monocyte Count 0.34 10^3/uL (0.1-0.8); Absolute Neutrophil Count 4.65 10^3/uL (1.2-6.7); Basophils % 0.6 %; Eosinophils % 1.8 %; HCT 36.4 % (36.0-46.0); HGB 12.5 g/dL (11.2-15.7); Immature Grans % 0.3 %; Lymphocytes % 32.9 %; MCH 31.3 pg (27.0-33.0); MCHC 34.3 % (32.0-36.0); MCV 91 fL (80-95); Monocytes % 4.4 %; Platelet Count 222 10^3/uL (130-400); RBC 3.99 10^6/uL (3.93-5.22); RDW 11.4 % (11.7-14.6); RDW-SD 38.4 fL; WBC 7.75 10^3/uL (4.4-10.8)
[2023-12-22 15:25] LABS: ALT 23 U/L (14-59); AST 17 U/L (15-37); Albumin 4.2 g/dL (3.4-5.0); Alkaline Phosphatase 51 U/L (46-116); Anion Gap 9.8 mmol/L (3-11); BUN 4 mg/dL (7-18); Bilirubin, Total 0.57 mg/dL (0.2-1.0); CO2 28.2 mmol/L (21.0-32.0); CREATININE 0.9 mg/dL (0.55-1.02); Calcium 8.7 mg/dL (8.5-10.1); Chloride 105 mmol/L (98-107); Glucose 86 mg/dL (74-106); Potassium 3.5 mmol/L (3.5-5.1); Sodium 143 mmol/L (136-145); TSH (W/Ref FT4) 0.96 uIU/mL (0.36-3.74)
== END 2023-12-22 03:23 | disposition home or self-care (01) ==
LOC: LBO 03:22
PROVIDERS: PCP Nurse Practitioner Family; Visit Provider Nurse Practitioner Family
DX: K76.0 Fatty (change of) liver, not elsewhere classified (principal); E03.9 Hypothyroidism, unspecified
CPT/HCPCS: 36415; 80053; 84443; 85025

== ENCOUNTER 2023-12-25 15:19 | Outpatient (REF) | payer MEDICAID, SELFPAY ==
[2023-12-25 17:49] LABS: Ferritin 67 ng/mL (8-252); Folate 10.9 ng/mL (8.6-20.0); Vitamin B12 264 pg/mL (193-986)
[2023-12-25 18:00] LABS: Iron 89 ug/dL (50-170); Total Iron Binding Capacity 277 ug/dL (250-450); Transferrin Sat 32 % (15-50)
[2023-12-26 22:01] LABS: Estradiol 109 pg/mL (See Note)
[2023-12-28 08:56] LABS: FSH 20.3 mIU/mL (See Note)
[2023-12-29 12:11] LABS: Ceruloplasmin 22.8 mg/dL
== END 2023-12-25 15:20 | disposition home or self-care (01) ==
LOC: NCHCN 15:19
PROVIDERS: PCP Nurse Practitioner Family; Visit Provider Family Medicine
DX: R61 Generalized hyperhidrosis (principal); R25.1 Tremor, unspecified
CPT/HCPCS: 82390; 82607; 82670; 82728; 82746; 83001; 83540; 83550

== ENCOUNTER 2024-05-03 06:50 | Emergency (ER) | payer MEDICAID, SELFPAY ==
[2024-05-03 06:56] VITALS: BP 125/72; PULSE 73; RESP 18; TEMP 36.5; O2SAT 100
--- NOTE | 2024-05-03 07:00 | DI.US_ITS ---
Exam(s) US ABDOMEN LIMITED EXAM: US ABDOMEN LIMITED CLINICAL HISTORY: pain in RUQ, eval GB TECHNIQUE: Ultrasound abdomen performed using standard protocol. COMPARISON: CT CT ABDOMEN PELVIS W from 11/12/[address] ABDOMEN PELVIS W from 03/18/2020 US US ABDOMEN from 05/21/2021 FINDINGS: PANCREAS: Normal where visualized. LIVER: Normal. Hepatopetal flow in the Portal Vein. The liver measures in 16.0 cm length. No evidence of a hepatic mass. GALLBLADDER: No evidence of cholelithiasis. No evidence of wall thickening. No pericholecystic fluid identified. BILIARY SYSTEM: Common bile duct measures < 7 mm. No intrahepatic biliary ductal dilation. BARCLAY'S SIGN: Negative. RIGHT KIDNEY: Kidney is normal in size. No evidence of renal calculi. No evidence of hydronephrosis. No renal mass or cyst identified. ASCITES: None seen. IMPRESSION: Normal sonographic appearance of the upper abdomen. DATA REPOSITORY:
[2024-05-03 07:16] LABS: Lactate 1.8 mmol/L (0.6-1.4)
[2024-05-03 07:17] LABS: Abs Immature Grans 0.06 10^3/uL (0.0-0.06); Absolute Basophil Count 0.05 10^3/uL (0.0-0.2); Absolute Eosinophil Count 0.09 10^3/uL (0.0-0.7); Absolute Lymphocyte Count 1.49 10^3/uL (1.2-3.4); Absolute Monocyte Count 0.46 10^3/uL (0.1-0.8); Absolute Neutrophil Count 8.17 10^3/uL (1.2-6.7); Basophils % 0.5 %; Eosinophils % 0.9 %; HCT 39.9 % (36.0-46.0); HGB 13.6 g/dL (11.2-15.7); Immature Grans % 0.6 %; Lymphocytes % 14.4 %; MCH 31.1 pg (27.0-33.0); MCHC 34.1 % (32.0-36.0); MCV 91 fL (80-95); MPV 8.9 fL (8.0-11.0); Monocytes % 4.5 %; Neutrophils % 79.1 %; Platelet Count 260 10^3/uL (130-400); RBC 4.38 10^6/uL (3.93-5.22); RDW 11.7 % (11.7-14.6); RDW-SD 39.1 fL; WBC 10.32 10^3/uL (4.4-10.8)
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
--- OUTSIDE RECORDS SUMMARY | 2024-05-03 07:18 | XMS_ITS | Data Portability ---
Author Organization [place] - [facility] [place] [address] Assessment Encounter Date Assessment Date Assessment LastModified by Organization Details LastModified Time 12/25/2023 12/25/2023 The total time devoted to today's encounter, including both the mnaa-en-zsfq time with the patient and/or family/caregive r and unv-qfut-lz-fac e time I personally spent is 44 minutes. eoleson Not available 12/25/2023 22:30:15 01/20/2024 01/20/2024 Daniela meets criteria for ADHD and the more bothersome symptoms she is experiencing are consistent with this. Trial of stimulant. She recalls concerta working in the past. Will start with this, if she does not tolerate after the first dose or two, can decrease dose for a week. I suspect she will be fine. Follow up in 1 month and adjust dose if needed. eoleson Not available 01/21/2024 19:53:07 Plan of Treatment Reminders Order Date Submit Date Provider Last Modified By Organization Details Last Modified Time Details Appointments Office Visit 30 2023 11:30A M Shandra Amanda Not available Not available Not available Lab vitamin B12 + folate, serum or blood 2023 024 [facility] ([facility] [address] [place] [address] [place], [address], 12/29/2023 14:33:13 iron + TIBC + ferritin, serum 2023 024 [facility] ([facility]), [address] [place] [address] Dr, [place], [address], 12/29/2023 14:33:03 cerulopla smin, serum 2023 024 [facility] ([facility]), [address] [place] [address] [place], [address], 12/29/2023 15:37:11 FSH (follicle -stimulat ing hormone), serum - 1 red and 2 tigers drawn in office. 2023 024 [facility] ([facility]), [address] [place] [address] [place], [address], 12/28/2023 10:04:32 estradiol , serum 2023 024 [facility] ([facility]), [address] [place] [address] [place], [address], 12/29/2023 14:33:42 Referral None recorded. Procedures None recorded. Surgeries None recorded. Imaging None recorded. Medication Orders neomycin- polymyxin -hydrocor t 3.5 mg-10,000 unit/mL-1 % ear drops,shaun p 2023 024 [facility], [address] [place], [address], 12/25/2023 10:50:22 cyclobenz aprine 5 mg tablet 2023 024 [facility], [address] [place], [address], 12/25/2023 16:16:34 omeprazol e 20 mg capsule,d elayed release 2023 024 [facility], [address] [place], [address], 12/25/2023 16:16:24 gabapenti n 300 mg capsule 2023 024 [facility], [address] [place] [address], [address], 01/08/2024 07:53:34 Concerta 36 mg tablet,ex tended release 2023 [facility], [address] [place] [address], [address], 03/13/2024 14:22:11 promethaz ine 25 mg tablet 2023 024 [facility], [address] [place] [address], [address], 03/14/2024 08:50:18 mirtazapi ne 7.5 mg tablet 2023 [facility], [address] [place] [address], [address], 03/14/2024 08:50:20 duloxetin e 30 mg capsule,d elayed release 2023 024 [facility], [address] [place] [address], [id number], 03/14/2024 08:50:18 duloxetin e 60 mg capsule,d elayed release 2023 024 [facility], [address] [place] [address], [address], 03/14/2024 08:50:16 Concerta 54 mg tablet,ex tended release 2023 024 [facility], [address] [place] [address], [id number], 03/14/2024 08:50:23 Patient TargetsNo targets recorded. Patient Instructions Encounter Date Encounter Id Patient Instructions Last Modified By Organization Details Last Modified Time 10/14/2023 [id number] No sx OM, mild O E, rec course eardrops, sudafed/benadryl for congestion, return if any worsening. rigo Not available 10/14/2023 13:40:49 03/14/2024 [id number] Dear Daniela Ruiz, Thank you for visiting us today. Your dedication to managing your anxiety and ADHD effectively is commendable. Here is a summary of the calvillo instructions and changes we discussed during your visit: - Medications: - Continue Concerta: As prescribed for ADHD. - Start Duloxetine: 30 mg in the morning for anxiety, with a plan to increase to 60 mg after one week. - Reduce Mirtazapine: To 7.5 mg at bedtime to aid sleep. - Continue Gabapentin: As needed for irritability, three times a day. - Keep Promethazine: On hand for nausea as needed. - Therapy and Support: - Explore Online CBT Therapy: Options that accept Medicaid. - Work with Nickoals: Our peer presidential support specialist will reach out to connect you with suitable counselors. - Follow-Up: - Schedule Appointment: Around late April. - General Advice: - Monitor for Side Effects: From new medications, such as headaches, dizziness, or gastrointestinal issues. - Manage Day-time Anxiety: using internal coping strategies. - Duloxetine Improvement: Be aware that it may take 4-6 weeks before you notice improvements in anxiety. - Increased Bleeding or Bruising: Please let us know if you experience this. We hope these adjustments will help improve your symptoms and overall well-being. Do not hesitate to reach out if you have any concerns or if your symptoms change. Warm regards, MD david Ingramlestyesha Not available 03/14/2024 08:51:35 Reason for Referral None Reported. Results Created Date Observation Date Name Description Value Unit Range Abnormal Flag Note LastModifiedBy Organization Detail LastModifiedTime 12/07/19 24 12/07/2023 COMPL ETE BLOOD COUNT W/DIF F WBC 6.46 10_3/ uL 4.4-10 .8 normal Not Available [address] [place], [address] 12/07/2023 07:30:03 12/07/19 24 12/07/2023 COMPL ETE BLOOD COUNT W/DIF F RBC 4.26 10_6/ uL 3.93-5 .22 normal Not Available [address] [place], [address] 12/07/2023 07:30:03 12/07/19 24 12/07/2023 COMPL ETE BLOOD COUNT W/DIF F HGB 13.3 g/dL 11.2-1 5.7 normal Not Available [address] [place], [address] 12/07/2023 07:30:03 12/07/19 24 12/07/2023 COMPL ETE BLOOD COUNT W/DIF F HCT 38.3 % 36.0-4 6.0 normal Not Available [address] [place], [address] 12/07/2023 07:30:03 12/07/19 24 12/07/2023 COMPL ETE BLOOD COUNT W/DIF F MCV 90 fL 80-95 normal Not Available [address] [place], [address] 12/07/2023 07:30:03 12/07/19 24 12/07/2023 COMPL ETE BLOOD COUNT W/DIF F MCH 31.2 pg 27.0-3 3.0 normal Not Available [address] [place], [address] 12/07/2023 07:30:03 12/07/19 24 12/07/2023 COMPL ETE BLOOD COUNT W/DIF F MCHC 34.7 % 32.0-3 6.0 normal Not Available [address] [place], [address] 12/07/2023 07:30:03 12/07/19 24 12/07/2023 COMPL ETE BLOOD COUNT W/DIF F RDW 11.5 % 11.7-1 4.6 low Not Available [address] [place], [address] 12/07/2023 07:30:03 12/07/19 24 12/07/2023 COMPL ETE BLOOD COUNT W/DIF F platelet count 227 10_3/ uL 130-40 0 normal Not Available [address] [place], [address] 12/07/2023 07:30:03 12/07/19 24 12/07/2023 COMPL ETE BLOOD COUNT W/DIF F MPV 9.0 fL 8.0-11 .0 normal Not Available [address] [place], [address] 12/07/2023 07:30:03 12/07/19 24 12/07/2023 COMPL ETE BLOOD COUNT W/DIF F neutrophils % 55.3 % Not Available [address] [place], [address] 12/07/2023 07:30:03 12/07/19 24 12/07/2023 COMPL ETE BLOOD COUNT W/DIF F lymphocytes % 34.5 % Not Available [address] [place], [address] 12/07/2023 07:30:03 12/07/19 24 12/07/2023 COMPL ETE BLOOD COUNT W/DIF F monocytes % 5.7 % Not Available [address] [place], [address] 12/07/2023 07:30:03 12/07/19 24 12/07/2023 COMPL ETE BLOOD COUNT W/DIF F eosinophils % 3.4 % Not Available [address] [place], [address] 12/07/2023 07:30:03 12/07/19 24 12/07/2023 COMPL ETE BLOOD COUNT W/DIF F basophils % 0.8 % Not Available [address] [place], [address] 12/07/2023 07:30:03 12/07/19 24 12/07/2023 COMPL ETE BLOOD COUNT W/DIF F immature grans % 0.3 % Not Available [address] [place], [address] 12/07/2023 07:30:03 12/07/19 24 12/07/2023 COMPL ETE BLOOD COUNT W/DIF F nucleated RBC 0.0 % 0.0-0. 3 normal Not Available [address] [place], [address] 12/07/2023 07:30:03 12/07/19 24 12/07/2023 COMPL ETE BLOOD COUNT W/DIF F absolute neutrophil count 3.57 10_3/ uL 1.2-6. 7 normal Not Available [address] [place], [address] 12/07/2023 07:30:03 12/07/19 24 12/07/2023 COMPL ETE BLOOD COUNT W/DIF F absolute lymphocyte count 2.23 10_3/ uL 1.2-3. 4 normal Not Available [address] [place], [address] 12/07/2023 07:30:03 12/07/19 24 12/07/2023 COMPL ETE BLOOD COUNT W/DIF F absolute monocyte count 0.37 10_3/ uL 0.1-0. 8 normal Not Available [address] [place], [address] 12/07/2023 07:30:03 12/07/19 24 12/07/2023 COMPL ETE BLOOD COUNT W/DIF F absolute eosinophil count 0.22 10_3/ uL 0.0-0. 7 normal Not Available [address] [place], [address] 12/07/2023 07:30:03 12/07/19 24 12/07/2023 COMPL ETE BLOOD COUNT W/DIF F absolute basophil count 0.05 10_3/ uL 0.0-0. 2 normal Not Available [address] [place], [address] 12/07/2023 07:30:03 12/07/19 24 12/07/2023 COMPR EHENS LORRIE METAB OLIC PANEL calcium 8.5 mg/dL 8.5-10 .1 normal Not Available [address] [place], [address] 12/07/2023 07:31:15 12/07/19 24 12/07/2023 COMPR EHENS LORRIE METAB OLIC PANEL glucose 112 mg/dL 74-106 high Not Available [address] [place], [address] 12/07/2023 07:31:15 12/07/19 24 12/07/2023 COMPR EHENS LORRIE METAB OLIC PANEL BUN 6 mg/dL 7-18 low Not Available Tucker martinez [address] [place], [address] 12/07/2023 07:31:15 12/07/19 24 12/07/2023 COMPR EHENS LORRIE METAB OLIC PANEL creatinine 0.8 mg/dL 0.55-1 .02 normal Not Available [address] [place], [address] 12/07/2023 07:31:15 12/07/19 24 12/07/2023 COMPR EHENS LORRIE METAB OLIC PANEL estimated GFR 98.48 mL/min /1.73m 2 The eGFR is calcu lated from a serum creat inine using the CKD-E PI 2020 equat ion. Other varia bles requi red for the equat ion are gende r and age; this equat ion does not inclu de a race coeff icien t. This equat ion has simil ar overa ll perfo rmanc e to previ ous equat ions excep t value s may diffe r, in parti cular , in patie nts with highe r value s of eGFR and young er-ag ed adult s. Not Available [address] [place], [address] 12/07/2023 07:31:15 12/07/19 24 12/07/2023 COMPR EHENS LORRIE METAB OLIC PANEL total protein 7.3 g/dL 6.4-8. 2 normal Not Available [address] [place], [address] 12/07/2023 07:31:15 12/07/19 24 12/07/2023 COMPR EHENS LORRIE METAB OLIC PANEL albumin 4.4 g/dL 3.4-5. 0 normal Not Available [address] [place], [address] 12/07/2023 07:31:15 12/07/19 24 12/07/2023 COMPR EHENS LORRIE METAB OLIC PANEL bilirubin, total 0.5 mg/dL 0.2-1. 0 normal Not Available [address] [place], [address] 12/07/2023 07:31:15 12/07/19 24 12/07/2023 COMPR EHENS LORRIE METAB OLIC PANEL alk phos 53 U/L 46-116 normal Not Available [address] [place], [address] 12/07/2023 07:31:15 12/07/19 24 12/07/2023 COMPR EHENS LORRIE METAB OLIC PANEL sodium 141 mmol/ L 136-14 5 normal Not Available [address] [place], [address] 12/07/2023 07:31:15 12/07/19 24 12/07/2023 COMPR EHENS LORRIE METAB OLIC PANEL potassium 3.4 mmol/ L 3.5-5. 1 low Not Available [address] [place], [address] 12/07/2023 07:31:15 12/07/19 24 12/07/2023 COMPR EHENS LORRIE METAB OLIC PANEL chloride 102 mmol/ L 98-107 normal Not Available [address] [place], [address] 12/07/2023 07:31:15 12/07/19 24 12/07/2023 COMPR EHENS LORRIE METAB OLIC PANEL CO2 26.5 mmol/ L 21.0-3 2.0 normal Not Available [address] [place], [address] 12/07/2023 07:31:15 12/07/19 24 12/07/2023 COMPR EHENS LORRIE METAB OLIC PANEL anion gap 12.5 mmol/ L 3-11 high Not Available [address] [place], [address] 12/07/2023 07:31:15 12/07/19 24 12/07/2023 COMPR EHENS LORRIE METAB OLIC PANEL AST 17 U/L 15-37 normal Not Available Tucker martinez [address] [place], [address] 12/07/2023 07:31:15 12/07/19 24 12/07/2023 COMPR EHENS LORRIE METAB OLIC PANEL ALT 21 U/L 14-59 normal Not Available Tucker martinez [address] [place], [address] 12/07/2023 07:31:15 12/22/19 24 12/22/2023 COMPL ETE BLOOD COUNT W/DIF F WBC 7.75 10_3/ uL 4.4-10 .8 normal Not Available [address] [place], [address] 12/22/2023 14:37:47 12/22/19 24 12/22/2023 COMPL ETE BLOOD COUNT W/DIF F RBC 3.99 10_6/ uL 3.93-5 .22 normal Not Available [address] [place], [address] 12/22/2023 14:37:47 12/22/19 24 12/22/2023 COMPL ETE BLOOD COUNT W/DIF F HGB 12.5 g/dL 11.2-1 5.7 normal Not Available [address] [place], [address] 12/22/2023 14:37:47 12/22/19 24 12/22/2023 COMPL ETE BLOOD COUNT W/DIF F HCT 36.4 % 36.0-4 6.0 normal Not Available [address] [place], [address] 12/22/2023 14:37:47 12/22/19 24 12/22/2023 COMPL ETE BLOOD COUNT W/DIF F MCV 91 fL 80-95 normal Not Available Tucker martinez [address] [place], [address] 12/22/2023 14:37:47 12/22/19 24 12/22/2023 COMPL ETE BLOOD COUNT W/DIF F MCH 31.3 pg 27.0-3 3.0 normal Not Available [address] [place], [address] 12/22/2023 14:37:47 12/22/19 24 12/22/2023 COMPL ETE BLOOD COUNT W/DIF F MCHC 34.3 % 32.0-3 6.0 normal Not Available [address] [place], [address] 12/22/2023 14:37:47 12/22/19 24 12/22/2023 COMPL ETE BLOOD COUNT W/DIF F RDW 11.4 % 11.7-1 4.6 low Not Available [address] [place], [address] 12/22/2023 14:37:47 12/22/19 24 12/22/2023 COMPL ETE BLOOD COUNT W/DIF F platelet count 222 10_3/ uL 130-40 0 normal Not Available [address] [place], [address] 12/22/2023 14:37:47 12/22/19 24 12/22/2023 COMPL ETE BLOOD COUNT W/DIF F MPV 9.0 fL 8.0-11 .0 normal Not Available [address] [place], [address] 12/22/2023 14:37:47 12/22/19 24 12/22/2023 COMPL ETE BLOOD COUNT W/DIF F neutrophils % 60.0 % Not Available [address] [place], [address] 12/22/2023 14:37:47 12/22/19 24 12/22/2023 COMPL ETE BLOOD COUNT W/DIF F lymphocytes % 32.9 % Not Available [address] [place], [address] 12/22/2023 14:37:47 12/22/19 24 12/22/2023 COMPL ETE BLOOD COUNT W/DIF F monocytes % 4.4 % Not Available [address] [place], [address] 12/22/2023 14:37:47 12/22/19 24 12/22/2023 COMPL ETE BLOOD COUNT W/DIF F eosinophils % 1.8 % Not Available [address] [place], [address] 12/22/2023 14:37:47 12/22/19 24 12/22/2023 COMPL ETE BLOOD COUNT W/DIF F basophils % 0.6 % Not Available [address] [place], [address] 12/22/2023 14:37:47 12/22/19 24 12/22/2023 COMPL ETE BLOOD COUNT W/DIF F immature grans % 0.3 % Not Available [facility] [id number] [place], [address] 12/22/2023 14:37:47 12/22/19 24 12/22/2023 COMPL ETE BLOOD COUNT W/DIF F nucleated RBC 0.0 % 0.0-0. 3 normal Not Available [address] [place], [address] 12/22/2023 14:37:47 12/22/19 24 12/22/2023 COMPL ETE BLOOD COUNT W/DIF F absolute neutrophil count 4.65 10_3/ uL 1.2-6. 7 normal Not Available [address] [place], [address] 12/22/2023 14:37:47 12/22/19 24 12/22/2023 COMPL ETE BLOOD COUNT W/DIF F absolute lymphocyte count 2.55 10_3/ uL 1.2-3. 4 normal Not Available [address] [place], [address] 12/22/2023 14:37:47 12/22/19 24 12/22/2023 COMPL ETE BLOOD COUNT W/DIF F absolute monocyte count 0.34 10_3/ uL 0.1-0. 8 normal Not Available [address] [place], [address] 12/22/2023 14:37:47 12/22/19 24 12/22/2023 COMPL ETE BLOOD COUNT W/DIF F absolute eosinophil count 0.14 10_3/ uL 0.0-0. 7 normal Not Available [address] [place], [address] 12/22/2023 14:37:47 12/22/19 24 12/22/2023 COMPL ETE BLOOD COUNT W/DIF F absolute basophil count 0.05 10_3/ uL 0.0-0. 2 normal Not Available [address] [place], [address] 12/22/2023 14:37:47 12/22/19 24 12/22/2023 COMPR EHENS LORRIE METAB OLIC PANEL calcium 8.7 mg/dL 8.5-10 .1 normal Not Available [address] [place], [address] 12/22/2023 15:34:02 12/22/19 24 12/22/2023 COMPR EHENS LORRIE METAB OLIC PANEL glucose 86 mg/dL 74-106 normal Not Available Tucker martinez [address] [place], [address] 12/22/2023 15:34:02 12/22/19 24 12/22/2023 COMPR EHENS LORRIE METAB OLIC PANEL BUN 4 mg/dL 7-18 low Not Available Tucker [address] [place], [address] 12/22/2023 15:34:02 12/22/19 24 12/22/2023 COMPR EHENS LORRIE METAB OLIC PANEL creatinine 0.9 mg/dL 0.55-1 .02 normal Not Available [address] [place], [address] 12/22/2023 15:34:02 12/22/19 24 12/22/2023 COMPR EHENS LORRIE METAB OLIC PANEL estimated GFR 85.50 mL/min /1.73m 2 The eGFR is calcu lated from a serum creat inine using the CKD-E PI 2020 equat ion. Other varia bles requi red for the equat ion are gende r and age; this equat ion does not inclu de a race coeff icien t. This equat ion has simil ar overa ll perfo rmanc e to previ ous equat ions excep t value s may diffe r, in parti cular , in patie nts with highe r value s of eGFR and young er-ag ed adult s. Not Available [address] [place], [address] 12/22/2023 15:34:02 12/22/19 24 12/22/2023 COMPR EHENS LORRIE METAB OLIC PANEL total protein 7.0 g/dL 6.4-8. 2 normal Not Available [address] [place], [address] 12/22/2023 15:34:02 12/22/19 24 12/22/2023 COMPR EHENS LORRIE METAB OLIC PANEL albumin 4.2 g/dL 3.4-5. 0 normal Not Available [address] [place], [address] 12/22/2023 15:34:02 12/22/19 24 12/22/2023 COMPR EHENS LORRIE METAB OLIC PANEL bilirubin, total 0.57 mg/dL 0.2-1. 0 normal Not Available [address] [place], [address] 12/22/2023 15:34:02 12/22/19 24 12/22/2023 COMPR EHENS LORRIE METAB OLIC PANEL alk phos 51 U/L 46-116 normal Not Available [address] [place], [address] 12/22/2023 15:34:02 12/22/19 24 12/22/2023 COMPR EHENS LORRIE METAB OLIC PANEL sodium 143 mmol/ L 136-14 5 normal Not Available [address] [place], [address] 12/22/2023 15:34:02 12/22/19 24 12/22/2023 COMPR EHENS LORRIE METAB OLIC PANEL potassium 3.5 mmol/ L 3.5-5. 1 normal Not Available [address] [place], [address] 12/22/2023 15:34:02 12/22/19 24 12/22/2023 COMPR EHENS LORRIE METAB OLIC PANEL chloride 105 mmol/ L 98-107 normal Not Available [address] [place], [address] 12/22/2023 15:34:02 12/22/19 24 12/22/2023 COMPR EHENS LORRIE METAB OLIC PANEL CO2 28.2 mmol/ L 21.0-3 2.0 normal Not Available [address] [place], [address] 12/22/2023 15:34:02 12/22/19 24 12/22/2023 COMPR EHENS LORRIE METAB OLIC PANEL anion gap 9.8 mmol/ L 3-11 normal Not Available [address] [place], [address] 12/22/2023 15:34:02 12/22/19 24 12/22/2023 COMPR EHENS LORRIE METAB OLIC PANEL AST 17 U/L 15-37 normal Not Available Tucker martinez [address] [place], [address] 12/22/2023 15:34:02 12/22/19 24 12/22/2023 COMPR EHENS LORRIE METAB OLIC PANEL ALT 23 U/L 14-59 normal Not Available Tucker martinez [address] [place], [address] 12/22/2023 15:34:02 12/22/19 24 12/22/2023 TSH (W/RE F FT4) TSH (w/ref FT4) 0.96 uIU/m L 0.36-3 .74 normal Not Available [address] [place], [address] 12/22/2023 15:34:02 12/25/19 24 12/25/2023 BRI TIN ferritin 67 NG/mL 8-252 normal Not Available [facility] [address] [place] [address] [place], [address], 12/25/2023 17:53:25 12/25/19 24 12/25/2023 VITAM IN B12 vitamin B12 264 pg/mL 193-98 6 normal Not Available [facility]) [address] [place] [address] [place], [address], 12/25/2023 17:53:25 12/25/19 24 12/25/2023 FOLAT E folate 10.9 NG/mL 8.6-20 .0 normal Not Available [facility]) [address] [place] [address] [place], [address], 12/25/2023 17:53:26 12/25/19 24 12/25/2023 IRON AND IBCT iron 89 ug/dL 50-170 normal Not Available [facility]) [address] [place] [address] [place], [address], 12/25/2023 18:02:25 12/25/19 24 12/25/2023 IRON AND IBCT total iron binding capacity 277 ug/dL 250-45 0 normal Not Available [facility]) [address] [place] [address] [place], [address], 12/25/2023 18:02:25 12/25/19 24 12/25/2023 IRON AND IBCT transferrin sat 32 % 15-50 normal Not Available [facility] [address] [place] [address] [place], [address], 12/25/2023 18:02:25 12/25/19 24 12/26/2023 ESTRA DIOL estradiol 109 pg/mL see note NOTE: FEMAL E REFER ENCE RANGE S: MENST RUATI NG By cycle day relat lorrie to LH peak Folli cular (-12 to -4 days) 20-14 4 pg/mL Midcy jody (-3 to +2 days) 64-35 7 pg/mL Lutea l (+4 to +12 days) 56-21 4 pg/mL POSTM ENOPA USAL <32 pg/mL *Cros s react ivity with Fulve stran t could lead to a false ly eleva saray estra diol resul t in patie nts treat ed with this drug. Test perfo rmed or refer red by [facility] [address] [place] [address] Not Available [facility] ([facility]) [address] [place] [address] [place], [address], 12/28/2023 08:23:22 12/25/19 24 12/26/2023 ESTRA DIOL estradiol 109 pg/mL see note NOTE: FEMAL E REFER ENCE RANGE S: MENST RUATI NG By cycle day relat lorrie to LH peak Folli cular (-12 to -4 days) 20-14 4 pg/mL Midcy jody (-3 to +2 days) 64-35 7 pg/mL Lutea l (+4 to +12 days) 56-21 4 pg/mL POSTM ENOPA USAL <32 pg/mL *Cros s react ivity with Fulve stran t could lead to a false ly eleva saray estra diol resul t in patie nts treat ed with this drug. Test perfo rmed or refer red by [facility] [address] [place] [address] Not Available [facility]) [address] [place] [address] [place], [address], 12/28/2023 10:04:31 12/25/19 24 12/28/2023 FSH FSH 20.3 mIU/m L see note NOTE: Femal e FSH Refer ence Range s (Mens truat ing): PHYSI OLOGI ANDREW STATU S REFER ENCE RANGE ----- ----- ----- ----- ----- ----- ----- Folli cular (-12 to -4 days) : 2.5 - 10.2 mIU/m L Midcy jody (-3 to +2 days) : 3.4 - 33.4 mIU/m L Lutea l (+4 to +12 days) : 1.5 - 9.1 mIU/m L Postm enopa usal: 23.0 - 116.3 mIU/m L Refer ence Range s for pedia tric non-m enstr uatin g femal e patie nts have not been estab liswilma d. Test perfo rmed or refer red by [facility] [address] [place] [address] Not Available [address] [place], [address] 12/29/2023 15:37:12 12/25/19 24 12/29/2023 CERUL OPLAS MIN ceruloplasmi n 22.8 mg/dL ----- ----- ----- ----R EFERE NCE VALUE ----- ----- ----- ----- ----- - 20.0 - 51.0 Test Perfo rmed by: [facility] [address], [facility] [place] [address] Lab Direc tor: Arleth Gonzalez nn Ph.D. ; CLIA# [id number] Not Available [address] [place], [address] 12/29/2023 15:37:11 12/25/19 24 12/26/2023 ESTRA DIOL estradiol 109 pg/mL see note NOTE: FEMAL E REFER ENCE RANGE S: MENST RUATI NG By cycle day relat lorrie to LH peak Folli cular (-12 to -4 days) 20-14 4 pg/mL Midcy jody (-3 to +2 days) 64-35 7 pg/mL Lutea l (+4 to +12 days) 56-21 4 pg/mL POSTM ENOPA USAL <32 pg/mL *Cros s react ivity with Fulve stran t could lead to a false ly eleva saray estra diol resul t in patie nts treat ed with this drug. Test perfo rmed or refer red by [facility] [address] [place] [address] Not Available [address] [place] [place], [address] 12/29/2023 15:37:12 03/13/20 24 04/19/2019 imagi ng/di agnos tic resul t No observ ation record ed. [email or web address] Not Available 03/13 21:57:01 03/13/20 24 01/14/2019 imagi ng/di agnos tic resul t No observ ation record ed. [email or web address] Not Available 03/13 21:57:01 03/13/20 24 03/18/2020 imagi ng/di agnos tic resul t No observ ation record ed. [email or web address] Not Available 03/13 21:57:02 03/13/20 24 10/22/2019 imagi ng/di agnos tic resul t No observ ation record ed. [email or web address] Not Available 03/13 21:57:03 03/13/20 24 11/12/2019 imagi ng/di agnos tic resul t No observ ation record ed. [email or web address] Not Available 03/13 21:57:05 03/13/20 24 11/12/2019 imagi ng/di agnos tic resul t No observ ation record ed. [email or web address] Not Available 03/13 21:57:06 03/13/20 24 03/21/2019 imagi ng/di agnos tic resul t No observ ation record ed. [email or web address] Not Available 03/13 22:00:39 03/13/20 24 10/23/2019 imagi ng/di agnos tic resul t No observ ation record ed. [email or web address] Not Available 03/13 22:00:40 03/13/20 24 11/13/2019 imagi ng/di agnos tic resul t No observ ation record ed. [email or web address] Not Available 03/13 22:00:41 03/13/20 24 07/24/2020 imagi ng/di agnos tic resul t No observ ation record ed. [email or web address] Not Available 03/13 22:00:42 03/13/20 24 07/24/2020 imagi ng/di agnos tic resul t No observ ation record ed. [email or web address] Not Available 03/13 22:00:43 03/13/20 24 08/07/2018 imagi ng/di agnos tic resul t No observ ation record ed. [email or web address] Not Available 03/13 22:02:01 03/13/20 24 11/13/2019 imagi ng/di agnos tic resul t No observ ation record ed. [email or web address] Not Available 03/13 22:02:18 03/13/20 24 03/18/2020 imagi ng/di agnos tic resul t No observ ation record ed. [email or web address] Not Available 03/13 22:02:19 03/13/20 24 01/14/2019 imagi ng/di agnos tic resul t No observ ation record ed. [email or web address] Not Available 03/13 22:02:20 03/13/20 24 05/21/2021 imagi ng/di agnos tic resul t No observ ation record ed. [email or web address] Not Available 03/13 22:02:21 03/13/20 24 07/02/2018 imagi ng/di agnos tic resul t No observ ation record ed. [email or web address] Not Available 03/13 22:02:24 03/13/20 24 04/20/2019 imagi ng/di agnos tic resul t No observ ation record ed. [email or web address] Not Available 03/13 22:02:25 03/13/20 24 01/18/2019 imagi ng/di agnos tic resul t No observ ation record ed. [email or web address] Not Available 03/13 22:02:26 03/13/20 24 01/16/2019 imagi ng/di agnos tic resul t No observ ation record ed. [email or web address] Not Available 03/13 22:02:27 Result Notes None recorded. Problems Name Problem SNOMED Code Status Onset Date Resolution Date Notes Provider Name and Address Organization Details Recorded Time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 Not Available mirtazapi ne 30 mg tablet 1 tablet by mouth at bedtime take 1 tab QHS for 1 month, then reduce to 1/2 tab QHS for 1 month 10/30 completed Not Available Not Available Not Available nystatin 100,000 unit/gram topical cream apply three times daily to affected area 04/02 completed prescrib ed by [facility] Not Available Not Available Not Available Rituxan 10 mg/mL concentra te,intrav enous 375mg/M2 weekly X 4 doses 05/08 completed [facility] Not Available Not Available Not Available ranitidin e 150 mg tablet take 1 tab po HS for acid reflux 06/19 completed Not Available Not Available Not Available dexametha sone 4 mg tablet 10 tabs daily for 4 days every 21 days 05/08 completed [facility]. Not Available Not Available Not Available buspirone 10 mg tablet Take 1 tablet by mouth once a day as needed 05/20 completed Not Available Not Available Not Available Concerta 36 mg tablet,ex tended release TAKE ONE TABLET BY MOUTH EVERY DAY 03/13 completed Not Available Not Available Not Available promethaz ine 25 mg tablet TAKE ONE TABLET BY MOUTH THREE TIMES A DAY NEEDED active Not Available Not Available No t Available gabapenti n 300 mg capsule TAKE ONE CAPSULE BY MOUTH THREE TIMES A DAY active Not Available Not Available No t Available sertralin e 25 mg tablet Take 1 tab by mouth daily 2016 active Not Available Not Available Not Avai lable buspirone 7.5 mg tablet one at bedtime. 03/14 completed Not Available Not Available Not Available omeprazol e 20 mg capsule,d elayed release TAKE ONE CAPSULE BY MOUTH EVERY DAY NEEDED active Not Available Not Available No t Available magnesium citrate oral solution 09/14 completed Not Available Not Available Not Available mirtazapi ne 45 mg tablet TAKE ONE TABLET BY MOUTH AT BEDTIME 09/30 completed Not Available Not Available Not Available hydroxyzi ne HCl 25 mg tablet Take 1 tab by mouth at bedtime as needed 06/10 completed Not Available Not Available Not Available Entocort EC 3 mg capsule,d elayed,ex tended release 3 capsules daily 02/17 completed Not Available Not Available Not Available Seroquel 100 mg tablet Take 1 tab by mouth daily at bedtime 09/[address] goetz Not Available Not Available Not Available mirtazapi ne 15 mg tablet TAKE ONE TABLET BY MOUTH AT BEDTIME 03/14 completed Not Available Not Available Not Available diazepam 10 mg tablet Take 1 tablet [facility] 07/[address] goetz Not Available Not Available Not Available Tylenol-C odeine #3 300 mg-30 mg tablet take 1 tablet every 6 hours as needed for cough 09/14 completed Not Available Not Available Not Available ibuprofen 600 mg tablet Take 1 tab by mouth three times daily as needed 02/09 completed Not Available Not Available Not Available dexametha sone 0.5 mg tablet 40mg tablet daily 06/19 completed Not Available Not Available Not Available Paxil 10 mg tablet Take 1 tab by mouth daily. total daily dosage is 30mg daily 11/16 completed Not Available Not Available Not Available sertralin e 50 mg tablet TAKE ONE TABLET BY MOUTH EVERY DAY 02/27 completed Not Available Not Available Not Available Celexa 40 mg tablet Take 1 tab by mouth daily 12/18 completed dose increase Not Available Not Available Not Available Ambien 5 mg tablet Take 1/2- 1 tab by mouth at bedtime as needed for insomnia 09/10 completed Not Available Not Available Not Available doxycycli ne hyclate 100 mg tablet Take 1 tab by mouth twice daily 09/08 completed Not Available Not Available Not Available dicyclomi ne 10 mg capsule take 1 capsule every 8 hours as needed abdomina l cramps 12/25 completed Not Available Not Available Not Available loratadin e 10 mg tablet Take 1 tab by mouth daily PRN 02/09 completed Not Available Not Available Not Available diazepam 5 mg tablet Take 1 tab daily prn. Use sparingl y. 02/09 completed Not Available Not Available Not Available amoxicill in 875 mg-potass ium clavulana te 125 mg tablet Take 1 tablet by mouth twice a day 06/27 completed Not Available Not Available Not Available Ventolin HFA 90 mcg/actua tion aerosol inhaler INHALE TWO PUFFS BY MOUTH EVERY 4 TO 6 HOURS NEEDED (USE WITH SPACER) 08/16 completed Not Available Not Available Not Available buspirone 15 mg tablet Take 1 tab by mouth daily 02/09 completed Not Available Not Available Not Available oxycodone 5 mg tablet TAKE 1 TABLET BY MOUTH EVERY 6 HOURS NEEDED FOR PAIN (SEVERE PAIN 8 TO 10) 06/25 completed Not Available Not Available Not Available neomycin- polymyxin -hydrocor t 3.5 mg-10,000 unit/mL-1 % ear drops,shaun p INSTILL 4 DROPS INTO AFFECTED EAR(S) BY OTIC ROUTE 3 TIMES PER DAY for 1 week 12/24 completed Not Available Not Available Not Available Concerta 27 mg tablet,ex tended release Take 1 tablet by mouth once a day 05/20 completed fill 04/09/20 Not Available Not Available Not Available escitalop anjelica 10 mg tablet Take 1 tab by mouth daily 04/25 completed Not Available Not Available Not Available escitalop anjelica 20 mg tablet TAKE ONE TABLET BY MOUTH EVERY DAY 12/19 completed Not Available Not Available Not Available cyclobenz aprine 5 mg tablet TAKE ONE TABLET BY MOUTH TWICE A DAY NEEDED active Not Available Not Available No t Available potassium chloride ER 10 mEq tablet,ex tended release(p art/cryst ) one tab daily by mouth 12/25 completed Prescrib ed by [facility] ER Not Available Not Available Not Available Wellbutri n XL 150 mg 24 hr tablet, extended release Take 1 tablet by mouth once a day 05/20 completed Not Available Not Available Not Available Wellbutri n XL 300 mg 24 hr tablet, extended release Take 1 tablet by mouth once a day 07/24 completed Not Available Not Available Not Available mirtazapi ne 7.5 mg tablet TAKE ONE TABLET BY MOUTH AT BEDTIME active Not Available Not Available No t Available duloxetin e 30 mg capsule,d elayed release TAKE ONE CAPSULE BY MOUTH EVERY DAY active Not Available Not Available No t Available duloxetin e 60 mg capsule,d elayed release TAKE ONE CAPSULE BY MOUTH EVERY DAY active Not Available Not Available No t Available Constulos e 10 gram/15 mL oral solution 2 tablespo ons 3 times a day till stooling 08/14 completed Not Available Not Available Not Available Flovent HFA 44 mcg/actua tion aerosol inhaler INHALE ONE PUFF BY MOUTH TWICE A DAY 08/14 completed Not Available Not Available Not Available Flovent HFA 110 mcg/actua tion aerosol inhaler Inhale 2 puffs by mouth twice daily 08/14 completed Not Available Not Available Not Available multivita min 1 tab a day 07/05 completed Not Available Not Available Not Available Xopenex HFA 45 mcg/actua tion aerosol inhaler 2 puffs every 6 hours as needed for cough/ dyspnea 12/25 completed Not Available Not Available Not Available Multivita l 1 tab qd 04/22 completed Not Available Not Available Not Available acetylcys teine 600 mg capsule TAKE ONE CAPSULE BY MOUTH FOUR TIMES A DAY 06/25 completed Not Available Not Available Not Available Vyvanse 30 mg capsule Take 1 capsule by mouth once a day 09/12 completed stopped Not Available Not Available Not Available omeprazol e 20 mg tablet,de layed release Take 1 tab by mouth daily. 06/19 completed Not Available Not Available Not Available Probiotic 1 tab daily 04/22 completed Not Available Not Available Not Available Aerochamb er Mini use in conjunct ion with your inhaler 09/14 completed Not Available Not Available Not Available Nexplanon 68 mg subdermal implant inserted 03/09/182017 active Not Available Not Available Not Avai lable melatonin 10 mg tablet 1 tab qhs 06/04 completed Not Available Not Available Not Available Belsomra 10 mg tablet take 1/2- 1 tablet at bedtime 09/14 completed Not Available Not Available Not Available Vitals Date Recorded Body height Body mass index (BMI) Body weight Respiratory rate Body temperature Oxygen saturation Oxygen saturation in Arterial blood by Pulse oximetry Heart rate Systolic blood pressure Diastolic blood pressure Provider Name and Address Organization Details Last Updated DateTime 4 160.02 cm 25.2 kg/m2 69307.1 2 g 16 /min 97.5 [degF] 99 % 99 % 90 /min 118 mm[Hg] 76 mm[Hg] Ximena Trimble MA [facility]. 4 13:24:33 Date Recorded Body height Body mass index (BMI) Body weight Body temperature Oxygen saturation Oxygen saturation in Arterial blood by Pulse oximetry Heart rate Systolic blood pressure Diastolic blood pressure Provider Name and Address Organization Details Last Updated DateTime 4 160.02 cm 25.7 kg/m2 59310.8 9 g 96.7 [degF] 97 % 97 % 82 /min 110 mm[Hg] 70 mm[Hg] JOYCE BRUNO MA [facility], [facility]. 4 10:55:15 Date Recorded Body height Body mass index (BMI) Body weight Body temperature Oxygen saturation Oxygen saturation in Arterial blood by Pulse oximetry Heart rate Systolic blood pressure Diastolic blood pressure Provider Name and Address Organization Details Last Updated DateTime 4 160.02 cm 25.7 kg/m2 38361.8 9 g 97.6 [degF] 98 % 98 % 74 /min 110 mm[Hg] 72 mm[Hg] ANGI MARAVILLA MA [facility], [facility] 4 07:34:52 Date Recorded Body height Body mass index (BMI) Body weight Body temperature Oxygen saturation Oxygen saturation in Arterial blood by Pulse oximetry Heart rate Systolic blood pressure Diastolic blood pressure Provider Name and Address Organization Details Last Updated DateTime 4 160.02 cm 25.9 kg/m2 07014.4 9 g 97.8 [degF] 97 % 97 % 100 /min 112 mm[Hg] 68 mm[Hg] JOYCE BRUNO MA [facility], [facility] 4 13:53:23 Date Recorded Body height Body mass index (BMI) Body weight Body temperature Oxygen saturation Oxygen saturation in Arterial blood by Pulse oximetry Heart rate Systolic blood pressure Diastolic blood pressure Provider Name and Address Organization Details Last Updated DateTime 4 160.02 cm 25.9 kg/m2 53717.4 9 g 96.9 [degF] 97 % 97 % 80 /min 118 mm[Hg] 78 mm[Hg] JOYCE BRUNO MA [facility], [facility]. 4 08:07:27 Social History Question Answer Notes LastModified by Organizat ion Details LastModified Time Tobacco Smoking Status Never Smoker ANDREEA LOPEZ, [facility], [facility] 06/25/2023 09:51:31 1) Date Of Last VPMS Check? 03/14/2024 Information not available 03/14/2024 2) VPMS Findings No Concerns Information not available 03/14/2024 What Was The Date Of Your Most Recent Tobacco Screening? 12/25/2023 Information not available 12/25/2023 Has Tobacco Cessation Counseling Been Provided? No Information not available 12/25/2023 Do You Or Have You Ever Used Any Other Forms Of Tobacco Or Nicotine? No mdimick Information not available 06/25/2023 Sex: Female Functional Status None recorded. Mental Status None recorded. Family History Relationship Description Onset Age of this Age Resolved Age Notes LastModified by Organization Details LastModified Time Mother Family history of disorder of lung [email or web address] Not available 2022 03:55:06 Notes:*Problem: Mother- an e- hypothyroidism, prediabetes, obesity Father- unknown hx; estranged from Siblings- 2- Taran is hearing impaired. Yovani is hypoglycemic Children- none HTN: MGGM HLD: no CAD: no DM: yes Breast CA: no Colon CA: yes, maternal great grandparents (both) Uterine/ ovarian CA: no Other: Paternal grandparents both have alzhemier's Medical History No medical history recorded. Gynecological HistoryNo gynecological history recorded. Obstetrics History GPAL:G 0 P 0 0 0 0 Immunizations Vaccine Type Date Status Provider Name and Address Organization Details Recorded Time MMR 12/15/1997 completed Not Available [facility] 05:06:09 MMR 02/16/1990 completed Not Available [facility] 05:06:10 DTaP, unspecified formulation 11/12/1993 completed Not Available [facility] 05/08/2023 05:06:11 DTaP, unspecified formulation 01/20/1989 completed Not Available [facility] 05/08/2023 05:06:11 DTaP, unspecified formulation 03/24/1989 completed Not Available [facility] 05/08/2023 05:06:11 DTaP, unspecified formulation 05/05/1990 completed Not Available [facility] 05/08/2023 05:06:11 DTaP, unspecified formulation 05/26/1989 completed Not Available [facility] 05/08/2023 05:06:12 meningococcal ACWY, unspecified formulation 02/25/2007 completed Not Available [facility] 05/08/2023 05:06:12 Tdap 12/09/2011 completed Not Available [facility] 05:06:12 Tdap 04/08/2016 completed Not Available [facility] 05:06:13 HPV, unspecified formulation 12/17/2007 completed Not Available [facility] 05/08/2023 05:06:13 HPV, unspecified formulation 02/25/2007 completed Not Available [facility] 05/08/2023 05:06:13 HPV, unspecified formulation 05/28/2007 completed Not Available [facility] 05/08/2023 05:06:14 Td(adult) unspecified formulation 12/09/2011 completed Not Available [facility] 05/08/2023 05:06:14 Hib, unspecified formulation 02/16/1990 completed Not Available [facility] 05/08/2023 05:06:17 varicella 1993 completed Not Available [facility] 05:06:18 Hep B, unspecified formulation 10/15/2000 completed Not Available [facility] 05/08/2023 05:06:18 Hep B, unspecified formulation 12/23/1999 completed Not Available [facility] 05/08/2023 05:06:19 Hep B, unspecified formulation 03/21/2000 completed Not Available [facility] 05/08/2023 05:06:19 polio, unspecified formulation 11/12/1993 completed Not Available [facility] 05/08/2023 05:06:20 polio, unspecified formulation 01/20/1989 completed Not Available [facility] 05/08/2023 05:06:20 polio, unspecified formulation 03/24/1989 completed Not Available [facility] 05/08/2023 05:06:20 polio, unspecified formulation 05/05/1990 completed Not Available [facility] 05/08/2023 05:06:20 polio, unspecified formulation 05/26/1989 completed Not Available [facility] 05/08/2023 05:06:20 Past Encounters Encounter ID Performer Location Encounter Start Date Encounter Closed Date Diagnosis/Indication Diagnosis SNOMED-CT Code Diagnosis ICD10 Code [id number] JESSICA SALMON APRN [address] [address] 06/25/2023 09:34:48 06/25/2023 10:28:30 Steatosis of liver 372679424 K76.0 Fibromyalgia 107110785 M 79.7 Hypothyroidism 00954749 E03.9 Mild inter mittent asthma 242440142 J45.20 Gastroesop hageal reflux disease without esophagitis 967998709 K21.9 Irritable bowel syndrome 36121390 K58.9 Headache 37501958 R51.9 Thrombocyt openic purpura 882534283 D69.3 Anxiety 38916197 F41.9 Menopausal flushing 1984 13080 N95.1 [id number] Mckay Vilchis MD [address],[facility] [address] [place] [address] 10/14/2023 13:17:26 10/14/2023 13:38:08 Otitis externa of right ear 4017611251 550090 H60.91 [id number] SHANDRA AMANDA MD [address] [address] 12/25/2023 10:31:02 12/25/2023 12:12:30 Hot sweats 124251515 R61 Tremor 13436904 R25.1 Fibromyalgia 265641867 M 79.7 Gastroesop hageal reflux disease without esophagitis 295070680 K21.9 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 Postural dizziness 71576 7008 R42 [id number] SHANDRA AMANDA MD [address] [address] 01/08/2024 07:14:48 01/08/2024 08:04:56 Feeling irritable 10052609 R45.4 Cannabis h yperemesis syndrome co-occurrent and due to cannabis dependence 3734626103 4527461 R11.15 [id number] SHANDRA AMANDA MD [address] [address] 01/20/2024 13:34:26 01/20/2024 14:21:46 Attention deficit hyperactivity disorder 014667752 F90.9 Feeling irritable 974364 07 R45.4 [id number] SHANDRA AMANDA MD [address] [address] 03/14/2024 07:58:52 03/14/2024 08:51:53 Attention deficit hyperactivity disorder 418116813 F90.9 Anxiety 37061596 F41.9 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.15 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 Health Concerns Section Related Observation LastModified by Organization Detai ls LastModified Time None Recorded Concern Status LastModified by Organization Details LastModified Time None Recorded Advance Directives Directive None Recorded Payers Encounter Date Sequence Insurance Name Policy Number Policy Espinal Covered Member ID Espinal Member ID Guarantor Name 10/14/2023 1 [facility] Daniela Nunezfield [id number] Daniela Nunezfield 12/25/2023 1 [facility] (MEDICAID) Daniela Nunezfield [id number] Daniela Nunezfield 01/08/2024 1 [facility] (MEDICAID) Daniela Nunezfield [id number] Daniela Nunezfield 01/20/2024 1 [facility] ([facility]ICA[facility]) Daniela Nunezfield [id number] Daniela Nunezfield 03/14/2024 1 [facility] ([facility]ICA[facility]) Daniela Nunezfield [id number] Daniela Nunezfield Notes Date Note Type Note Provider Name and Address Organization Details Recorded Time 10/14/2023 text/html HPI Notes: some congestion from allergies, no fevers or sore throat, no hx chronic recurrent ear pain. Mckay Vilchis MD [address], [place], [address], [facility]. 10/14/2023 13:41:07 12/25/2023 text/html HPI Notes: 33 yo F presents to transfer care to [facility]. Has h/o MYERS, back and hip pain, fibro, ITP in remission, IBS, headaches, asthma, GERD. Mental health history including anxiety, depression, PTSD, insomnia, ADHD. Anxiety, depression - on buspirone and mirtazapine. Would like to discuss vomiting issues as well as constellation of neurologic symptoms. Vomiting: Has always had trouble with food, even as child. Had food aversions, anemic. Would eat like a bird. Even if starving, would only eat three bites and then done, felt full. Since around 2017, vomiting has been a big issues. The thought of food will cause nausea. Sometimes fine, can eat small portions and do fine sometimes. Other times, can barely get through a bite and then will vomit in the morning 5-6 times. When this first started it seemed like it was GI pain causing the vomiting. Now just morning vomiting out of nowhere. Reviewed GI records, doesn't seem GI has commented on the vomiting in the past. Avoiding gluten doesn't help. Will go through cycles of that for months at a time. Puking for 4 days at this point right now. Not eating at night, worried about puking the next morning. Or feels rock in stomach after eating. Lower abdomen feels constipated ,or notes movement in intestine, or top of stomach gurgles, then knows she will be in the bathroom vomiting. MJ helps her eat and allows her to keep the food down for a little while. Smokes every day for at least 4 years. Showers help stop the vomiting. Has cut back but not completely quit the MJ in the time she has had the vomiting. If really constipated, even if not pushing the poop out, ends up vomiting. Tried fodmap, gluten free, dairy free, shakes/meal replacement. Has had colonoscopies, endoscopies, imaging. Promethazine - does help when keeps it down Suppository is sedating. Was told once that her descending colon looked swollen on imaging but biopsies have been normal. Has tried linzess, makes gut pain worse. Bentyl, amitriptyline, doesn't help. MJ helps with reactivity, gives her thicker skin. Otherwise, she is easily tearful even if she doesn't feel sad. Finds this frustrating. Neuro issues: Has been having some difficulty getting the right word out even if she knows in her head what she is trying to say. Hands shake if using hand for a long time. 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 R worse than L. Bilateral carpal tunnel, made it worse, no feeling in between two fingers. Wrist hurts on the right, left wrist has electricity type feeling. Gets stabbing pain in neck. easily car sick, roller coaster feeling on flat road even when driving. Is woozy, weak knee feeling, used to be with vasovagal triggers but now happens more easily, feels like legs feel weak. L shoulder feels restless, has to whip arm around. Worse at night. Gets tunnel vision upon standing up from kneeling, bent over, crouching. Can't stand heat. Was told she has menopause since hysterectomy but still has her ovaries. Working on water intake, has been better. carries iced tea around. Can do gatorade. Doesn't like water. The aphasia, hand shaking and weakness, worse over the last year. Roller coaster feeling last 6-8 months, weak knee/woozy last 6-8 months, shoulder symptoms going on for a year or so. MD Elizabeth [address], [place], [id number], [facility]. 12/25/2023 22:30:40 01/08/2024 text/html HPI Notes: Seen 2 weeks ago with c/o daily vomiting in the morning, causing her to eat less. She was advised to stop smoking marijuana to rule out cannabinoid hyperemesis syndrome. The was helping her with irritability and controlling anger. Since stopping the MJ, the vomiting has resolved. She had one day where she used a few joints again and woke up the next day vomiting. However, she has really been struggling with her emotions and mood since then. It is starting to affect her marriage. Feels like everyone hates her. She wrote thoughts down regarding this, see scanned in docs. Has trouble focusing. States her mind moves too fast to allow her to be mindful and present, or think before she responds. The had been helping with this. She called a few days ago, struggling, and we started gabapentin. This has helped significantly. She has tried concerta and vyvanse in the past. Thinks that she wanted to increase the dose but it was causing her HR to increase. Doesn't recall if seroquel was helpful. She talks to people in her [place] but not current therapist. Saw psych at [facility] once, didn't like the person she saw. Has otherwise not seen psychiatry. MD Elizabeth [address], [place], [phone], [facility]. 01/08/2024 08:16:44 01/20/2024 text/html HPI Notes: Sheela denton presents essentially for a mood follow up. She is doing ok, gabapentin has helped a lot with irritability. However, it is hard to take it consistently with her schedule. Feels if she is doing things according to plan, she does fine but when there are twists in the day/her plan she struggles. Feels frazzled. Hard to find an inner calm. Has been feeling so much better since stopping marijuana. Worried she will fall back into these habits if her mental health doesn't improve. Worried about going back to school, time pressure is tough and worried about that, staying on task. Has h/o ADHD and stimulants have helped in the past, she recalls concerta being helpful. She recalls wanting to increase the dose but it was causing her HR to increase so they couldn't. She notes she was using marijuana then so that may have confounded things. She previously recalled trouble focusing. States her mind moves too fast to allow her to be mindful and present, or think before she responds. The MJ had helped slow her mind down. She endorses difficulty with focus, procrastination since childhood. She puts off tasks that require more thought. She starts multiple tasks without completing them as she goes. Doesn't recall seroquel helping. Some constipation issues. Going to work on probiotics. SHANDRA AMANDA MD [address], [place], [phone], [facility]. 01/21/2024 19:53:52 03/14/2024 text/html HPI Notes: [facility] Follow-Up - Daniela presents for a follow-up on her mental health. She reports that since stopping marijuana, her anxiety and irritability have worsened. Daniela has a history of using marijuana to manage anxiety and is now seeking alternative management methods. Therapy Experience - Daniela has had a mixed experience with therapy, including talk therapy, and EMDR. She is open to considering therapy. Medication Management - Daniela is interested in minimizing medication and questions the effectiveness of taking buspirone at bedtime for anxiety. She reports that gabapentin helps with irritability when she remembers to take it. Daniela has been on mirtazapine for sleep, but SSRIs have caused weight gain or decreased libido. She has tried Lexapro (escitalopram) and Paxil (paroxetine) but stopped due to side effects. She has also tried Wellbutrin, which was not a good fit for anxiety and irritability. Daniela is interested in trying an SNRI like Cymbalta (duloxetine) or Effexor (venlafaxine) due to fewer weight gain issues. ADHD Management - Daniela has ADHD and was started on Concerta in December, which has been helpful for her ADHD symptoms, but she still feels anxious. Sleep Issues - Regarding her sleep, Daniela reports that it could be better but is not as bad as it has been. She identifies as a genuine insomniac and has had sleep studies conducted. She can go to bed early and fall asleep quickly, but it otherwise often takes a long time for her to fall asleep. Other Concerns - Daniela mentions that other people have noticed her anxiety, including a parent volunteer at her school. She describes her experience with Concerta as helping her balance all the things going on but making her more aware of her anxiety. Daniela also reports recent nausea related to a back injury. She has significantly reduced her marijuana use, now using only about half a gram every other day. Her nausea is much better since decreasing use. SHANDRA AMANDA MD [address], [place], [address], [place] [facility]. 03/14/2024 08:58:52 OBGyn Episode No OBEpisode recorded.
[2024-05-03] MEDS: Metoclopramide 10 MG/2 ML VIAL IVP (07:19)
[2024-05-03] MEDS: MORPHine 4 MG/ML SYR IVP (07:19)
--- OUTSIDE RECORDS SUMMARY | 2024-05-03 07:19 | XMS_ITS | Encounter Summary ---
Author Organization [facility] [place] [address] Care Team Providers Care Wildfire Prevention Specialist Name Role Phone Presley Santillan MD Primary Care Provider Reason for Visit * Reason Onset Date Comments Labs Only 11/04/2017 Lab Tracking Encounter Details Date Type Department Care Team (Late st Contact Info) Description 11/04/2017 Telephone Hematology/Oncology at [address] [phone] Nolberto Monreal, RN Labs Only (Lab Tracking) Social History Tobacco Use Types Packs/Day Years Used Date Smoking Tobacco: Former Cigarettes 0 02/17/2010 - 02/17/2011 Smokeless Tobacco: Never Comments:quit years ago Alcohol Use Standard Drinks/Week Comments Yes 2 (1 standard drink = 0.6 oz pur e alcohol) 1-2 a week Sex and Gender Information Value Date Recorded Sex Assigned at Not on file Gender Identity Not on file Sexual Orientation Not on file documented as of this encounter Miscellaneous Notes * Telephone Encounter - Nolberto Monreal RN - 11/04/2017 11:36 AM EDT LAB TRACKING Yaneth Gardner [id number] Diagnosis: ITP Labs ordered: every 4 weeks CBC (and PRN if pt wants to see one, she will let us know she went to lab she realizes we may not get back to her for a few days with results) Medications: Dex 40mg x 4 days every 3 weeks completed 04/2017 Rituxan infusions x4 (03/11/17-04/01/17) Assessment: Spoke with Pt, no concerns at this time. Plan: Pt reports she will go for labs again November 26. Results for YANETH GARDNER ( ) as of 11/04/2017 11:36 Ref. Range 08/26/2017 00:00 09/23/2017 00:00 10/07/2017 00:00 11/02/2017 00:00 WBC Unknown 6.34 7.27 8.71 9.43 Hemoglobin Unknown 13.4 13.2 13.5 12.3 Hematocrit Unknown 38.6 38.7 39.0 35.7 Platelets Unknown 195 201 233 234 Neutr Abs (ANC) Unknown 3.51 4.34 6.48 5.87 Date WBC HGB/HCT PLT ANC PLAN LABS 07/31/17 8.59 12.8/38.0 201k 6.04 Patient has been under the weather. Labs again first week of August. 07/07/17 8.24 12.5/36.7 237k 5.45 Had bruising on knees and elbows [facility] 07/28/18 06/01/17 7.27 12.2/36.4 209k 3.86 Stopped dex [facility] 06/30/16 05/25/17 8.15 12.2/35.5 153k 5.21 Dex 40 mg 05/25-05/28 [facility] 06/1505/04/17 7.77 12.4/36.3 153k 4.74 Dex 40 mg 05/04-05/07 [facility] 05/2504/20/17 10.15 12.6/35.2 175k 5.67 Completed 4 days of dex 04/16/17 [facility] 05/04/17 04/10/17 10.44 12.3/36.1 112k 7.26 4ht cycle dex start 04/13. Prior to vs with Dr Whitfield on 04/2203/30/17 9.57 12.7/36.1 206k 5.04 4th Rituxan due03/31 Labs again on 04/0703/24/17 7.87 12/34.9 120k 5.13 3rd rituxan due 03/25 Labs again 03/31/17 03/16/17 11.79 12.1/34.8 129k 8.18 2nd Rituxan given 03/18 [facility] 03/2403/06/17 11.59 11.8/35.4 166k 9.67 1st rituxan given 03/11 [facility] 03/16 documented in this encounter Plan of Treatment Not on file documented as of this encounter Procedures Procedure Name Priority Date/Time Associated Diagnosis Comments CBC (WITH DIFF) Routine 11/02/2017 documented in this encounter Results * CBC (with Diff) (11/02/2017) White Blood Cell 9.43 Hemoglobin 12.3 Hematocrit 35.7 Platelet 234 Neutrophil Absolute (ANC) - Automated 5.87 Blood specimen (specimen) 11/02/2017 Mercedez Whitfield MD HEMATOLOGY ORDER ALBERTA documented in this encounter Visit Diagnoses Not on filedocumented in this encounter Care Teams Wildfire Prevention Specialist Relationship Specialty Start Date End Date Presley Santillan MD [address] [place] [address] PCP - General Internal Medicine 02/10/17 documented as of this encounter
--- OUTSIDE RECORDS SUMMARY | 2024-05-03 07:19 | XMS_ITS | Encounter Summary ---
Author Organization [facility] Address [facility] [place] [address] Care Team Providers Care Media Marketing Manager Name Role Phone Presley Santillan MD Primary Care Provider [phone] Encounter Details Date Type Department Care Team (Latest Contact Info) Description 02/02/2023 Travel Social History Tobacco Use Types Packs/Day Years Used Date Smoking Tobacco: Former Cigarettes 0 02/17/2010 - 02/17/2011 Smokeless Tobacco: Never Comments:quit years ago Alcohol Use Standard Drinks/Week Comments Yes 0 (1 standard drink = 0.6 oz pur e alcohol) rarely ever Overall Financial Resource Strain (CARDIA) Answe r Date Recorded How hard is it for you to pa y for the very basics like food, housing, medical care, and heating? Somewhat hard 04/18/2022 Hunger Vital Sign Answer Date Recorded Within the past 12 months, y ou worried that your food would run out before you got the money to buy more. Never true 04/18/20 22 Within the past 12 months, t he food you bought just didn't last and you didn't have money to get more. Never true 04/18/2022 PRAPARE - Transportation Answer Date Re corded In the past 12 months, has l ack of transportation kept you from medical appointments or from getting medications? No 03/30 In the past 12 months, has l ack of transportation kept you from meetings, work, or from getting things needed for daily living? No 04/18/2022 Housing Stability Vital Sign Answer Fernando e Recorded In the last 12 months, was t here a time when you were not able to pay the mortgage or rent on time? No 04/18/2022 In the last 12 months, how many places have you lived? 1 04/18/2022 In the last 12 months, was t here a time when you did not have a steady place to sleep or slept in a chcf (including now)? No 04/18/2022 DH IPV Inpatient Questions Answer Date Recorded Does Anyone Try to Keep You From Having Contact with Others or Doing Things Outside Your Home? no 10/20/2022 Feels Threatened by Someone no 09/28 Feels Unsafe at Home or Work/School no 10/20/2022 Physical Signs of Abuse Present no 10/20/2022 Sex and Gender Information Value Date Recorded Sex Assigned at Not on file Gender Identity Not on file Sexual Orientation Not on file documented as of this encounter Plan of Treatment Not on file documented as of this encounter Visit Diagnoses Not on filedocumented in this encounter Care Teams Media Marketing Manager Relationship Specialty Start Date End Date Presley Santillan MD [address] [place] [id number] PCP - General Internal Medicine 02/10/17 documented as of this encounter
--- OUTSIDE RECORDS SUMMARY | 2024-05-03 07:19 | XMS_ITS | Encounter Summary ---
Author Organization [facility] [place] [address] Care Team Providers Care Software Engineering Analyst Name Role Phone Presley Santillan MD Primary Care Provider [phone] Reason for Visit * Reason Onset Date Comments Reminder Appointment 06/16/2018 for labs Encounter Details Date Type Department Care Team (Late st Contact Info) Description 06/16/2018 Telephone Hematology/Oncology at [address] [phone] Nolberto Monreal RN Reminder Appointment (for labs) Social History Tobacco Use Types Packs/Day Years [...] Telephone Encounter - Nolberto Monreal RN - 06/16/2018 4:17 PM EST Called and LM on identified VM to remind Pt she is due for labs per lab tracking. documented in this encounter Plan of Treatment Not on file documented as of this encounter Visit Diagnoses Not on filedocumented in this encounter Care Teams Software Engineering Analyst Relationship Specialty Start Date End Date Presley Santillan MD [address] [place] [address] PCP - General Internal Medicine 02/10/17 documented as of this encounter
--- OUTSIDE RECORDS SUMMARY | 2024-05-03 07:19 | XMS_ITS | Encounter Summary ---
Author Organization [facility] Address [facility] [place] [address] Care Team Providers Care Ore Fielder Name Role Phone Presley Santillan MD Primary Care Provider [phone] Reason for Visit * Reason Comments Establish Care * Consultation (Routine) - Closed Specialty Diagnoses / Procedures Referred By Contac t Referred To Contact Hematology and Oncology Diagnoses Immune thrombocytopenic purpura Cora Robles APRN [address] [place] [address] [facility] [address] [place] [address] Referral ID Status Reason Start Date Expiration Date V isits Requested Visits Authorized [id number] Closed Consult, Test & Treat PCP Updated and/or Approved 12/25/2021 12/25/2022 1 1 Encounter Details Date Type Department Care Team (Latest Contact Info) Description 04/18/2022 9:00 AM EDT Office Visit [place] [address] Samira Oneill MD [facility] [address] [place] [address] Guille Rivas, [facility] HEMATOLOGY/[place] [address] Nory Clemons RN Easy bruising; Benign joint hypermobility syndrome Social History Tobacco Use Types Packs/Day Years [...] place to sleep or slept in a nursing home (including now)? No 04/18/2022 Sex and Gender Information Value Date Recorded Sex Assigned at Not on file Gender Identity Not on file Sexual Orientation Not on file documented as of this encounter Last Filed Vital Signs Vital Sign Reading Time Taken Comments Blood Pressure 114/63 04/18/2022 8:48 AM EDT Pulse 97 04/18/2022 8:48 AM EDT Temperature 36.6 ??C (97.9 ??F) 04/18/2022 8:48 AM ED T Respiratory Rate 16 04/18/2022 8:48 AM EDT Oxygen Saturation 100% 04/18/2022 8:48 AM EDT Inhaled Oxygen Concentration - - Weight 64.7 kg (142 lb 10.2 oz) 04/18/2022 8:48 AM EDT Height 160.3 cm (5' 3.11) 04/18/2022 8:48 AM ED T Body Mass Index 25.18 04/18/2022 8:48 AM EDT documented in this encounter Progress Notes * Guille Rivas, DO - 04/18/2022 9:00 AM EDT Images from the original note were not included. THROMBOSIS CONSULTATION DATE OF VISIT 04/18/2022 Patient Daniela Ruiz 1990 REFFERAL FROM: ELIGIO Gordon PRIMARY CARE PHYSICIAN Presley Santillan MD REASON FOR CONSULTATION Easy Bruising HISTORY OF THE PRESENT ILLNESS Daniela Ruiz is a 31 y.o. female with ITP, ADHD, fibromyalgia, anxiety, and Raynaud's Phenomenon, who is seen in consultation at the request of Cora Robles APRN for easy bruising. The history is obtained from the patient, and I have reviewed extensive medical records provided by the referring physician and located in the electronic medical record to fill in gaps in the patient's recollection of events, treatments and outcomes. Daniela is a 31 yo F with a history of ITP diagnosed in 2017 and treated with IVIG, Dex and Rituximab. She has not followed at [facility] (Dr. Whitfield) since 2018. Daniela is here with a complaint of easy bruising. She has noted this since she was a child. Some of these have occurred with trauma but somewhat out. She often wakes up in the morning with new bruises without explanation. She once noted a bruise on her leg from sitting down. These bruises are usually faint and start by being light green and fade to yellow. The bruising lasts about from 2 to 3 da ys to 2 to 3 weeks. Of note, she has not been on steroids since 2018. She had undergone a hysterectomy for heavy menstrual bleeding since menarche and did not have any perioperative bleeding complications. She has neverhad pRBC transfusions before. She reports that she had been undergoing work-up for colon inflammation but has not been formally diagnosed with inflammatory bowel disease. She is currently undergoing a flare which manifests as left-sided upper and lower abdominal pain with constipation. She denies any black or bloody stools. PAST MEDICAL HISTORY ITP, ADHD, fibromyalgia, anxiety, and Raynaud's Phenomenon OPERATIVE PROCEDURES Numerous colonoscopies for suspicion of IBD. Carpel Tunnel Release b/l Appendectomy recently (since 2018). [place] Teeth Hysterectomy (for heavy mensural bleeding). OBSTETRIC HISTORY Never had a confirmed . There were 2 incidences where she thought she was by symptoms but never had a positive test. MEDICATIONS Current Outpatient Medications on File Prior to Visit Medication Sig Dispense Refill ??? buPROPion XL (Wellbutrin XL) 150 mg Tablet Extended Release 24 hr Take 150 mg by mouth every morning. ??? methylphenidate (RITALIN) 10 mg Tablet Take 18 mg by mouth 2 times daily. Not sure of dose ??? cyclobenzaprine (FLEXERIL) 5 mg Tablet daily as needed. ??? [DISCONTINUED] Psyllium Seed-Sucrose (0) Powder Take by mouth. ??? [DISCONTINUED] albuterol (PROVENTIL) 2.5 mg /3 mL (0.083 %) Solution for Nebulization ??? [DISCONTINUED] dicyclomine (BENTYL) 10 mg Capsule Take 1 capsule by mouth 4 times daily. 120 capsule 5 ??? [DISCONTINUED] SUMAtriptan (IMITREX) 100 mg Tablet Take 100 mg by mouth as needed for Migraine. No current facility-administered medications on file prior to visit. ADVERSE DRUG REACTIONS Allergies as of 04/18/2022 - Review Complete 07/18/2019 Allergen Reaction Noted ??? Zofran odt [ondansetron] Other (See Comments) 06/25/2017 ??? [place] Other (See Comments) 02/10/2017 ??? Cis free text allergy ??? Gluten Other (See Comments) 02/10/2017 ??? Milk containing products Other (See Comments) 02/10/2017 ??? Peanut Other (See Comments) 02/10/2017 ??? Yeast Other (See Comments) 02/10/2017 ??? Cis free text allergy FAMILY HISTORY No one in family with hematologic issues. No one with cancer. SOCIAL HISTORY She smoked marijuana daily. No history of drug use. Rarely drinks alcohol. 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 She has 2 step children from a common law marriage. REVIEW OF SYSTEMS Fevers/chills/sweats No Recent infections No Unexplained weight loss No Headache/lightheadedness/syncope No Sinus pain/pressure No Oral sores/lesions/bleeding No Sore throat/dysphagia No Nosebleeds No Cough/SOB/chest pain/heart racing No Nausea/vomiting/dyspepsia No Abdominal pain No Diarrhea/constipation No Urinary pain, burning, incontinence No Hematuria No Vaginal discharge/bleeding No Skin rashes/ulcers No Back/joint pain/swelling Yes Leg swelling/pain/redness No Bruising/petechiae/bleeding/melena Yes Sensory/motor No Polydipsia/polyuria/heat/cold intol No Lumps/bumps/swollen glands No Other Negative except as above PHYSICAL EXAMINATION BP 114/63 (Patient Position: Sitting) Pulse 97 Temp 36.6 ??C (97.9 ??F) (Temporal) Resp 16 Ht 160.3 cm (5' 3.11) Wt 64.7 kg (142 lb 10.2 oz) SpO2 100% BMI 25.18 kg/m?? GENERAL: Well-appearing, articulate white female. HEENT: Oropharynx clear; no mucosal lesions, petechiae, bleeding, thrush or ulcers. NECK: Supple; no cervical, supraclavicular or submental adenopathy. BREASTS: Exam deferred. CHEST/LUNGS: Clear to auscultation/percussion. No rales, rhonchi, wheezes. HEART: Regular rate and rhythm; no murmur, rub, gallop GASTROINTESTINAL: LUQ and LLQ abd pain to palpation. +Bowel sounds. GENITOURINARY: Exam deferred. EXTREMITIES: No clubbing, cyanosis or edema. No erythema, tenderness or palpable cords. No venous varicosities. Some mild bruising on the abdomen and extremity. All fading. MUSCULOSKELETAL: Spine nontender. Full ROM all joints. No acutely inflamed joints. SKIN: No ecchymoses, petechiae, ulcers or rashes. Joint hyperextension. LYMPH: No palpable lymph nodes. NEUROLOGIC: Alert, oriented. Speech clear, coherent. No focal deficits noted. PSYCHIATRIC: Appropriate affect, no apparent distress. Beighton score for joint hypermobility: LABORATORY STUDIES 11/14/2020: Plt 254 12/18/2020: Plt 235 CBC 12/21/2020: Plt 240 CBC 08/29/2021: Plt 280 CBC 11/26/2021: WBC 7.13 Hgb 13.0 Plt 233 CBC 12/19/2021: Plt 235 RADIOGRAPHIC STUDIES I have personally reviewed images from the following studies where available: IMPRESSION Daniela Ruiz is a 31 y.o. woman with ITP, ADHD, fibromyalgia, anxiety, and Raynaud's Phenomenon, who is seen in consultation at the request of Cora Robles APRN for easy bruising. Daniela's bruising has been lifelong and has not been worsened since her ITP diagnosis. 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 She has a 9 out of 9 Beighton Score. We discussed that we would still like to rule out bleeding or bruising disorders with a bleeding screen. Additionally Daniela had a past medical history of hypothyroidism that was but is no longer being treated. Therefore we will screen her for recurrent hypothyroidism. Barring any surprises, we counseled Daniela on benign joint hypermobility syndrome and gave her a printed information regarding her diagnosis. We explained that some of the joint pain that she had experienced in the past mighthave been secondary to this. We recommended a diet rich in vitamins as it contributes to the collagen backbone and might help prevent some of the bruising. We also recommended avoiding ibuprofen or aspirin to an extent of possible which might also allay some of the bruising symptoms. However we explained that ultimately the bruising will continue and that it is benign and besides the cosmetic effect, there are no other problems. We will plan to follow with Daniela for a tele visit to go over the results of her bleeding screentoday. PLAN/RECOMMENDATIONS - Bleeding screen and TSH. - Avoid traumatic sports or high impact situations. - Avoid NSAIDs and aspirin when possible. - Maintain a diet rich in vitamin C. I informed Daniela Ruiz that she can call back with any questions. Patient was seen and discussed with Guille Lewis DO Fellow, Hematology and Medical Oncology [facility] [place] Pager: [phone], 04/18/22, 2:20 PM * Samira Oneill MD - 04/18/2022 9:00 AM EDT +*+*+*+*+*+*+*+*+*+*+*+*+*+*+*+*+*+*+*+*+*+*+*+*+*+*+*+*+*+*+*+*+*+*+*+*+*+* Hemostasis Attending Physician I have independently interviewed and examined this patient in the outpatient clinic and have personally reviewed the relevant clinical, laboratory and radiological data with Dr. Guille Rivas, Hematology/Oncology Fellow. Please refer to the separate consultation note, with which I concur, for complete details of our encounter with this patient. I have reviewed and endorse the recommendations as outlined and have made any additions/corrections below. In brief, Daniela has a lifelong history of easy bruisability and heavy menstrual periods but doesnot seem to bleed excessively with hemostatic challenges. She has a history of ITP but this was successfully treated with rituximab and corticosteroids and she's been in remission since 2017. She hasan otherwise normal CBC, kidney and liver function tests. A TSH was increased a few years ago. On clinical exam today, she meets / Beighton criteria for benign joint hypermobility, which I suspect is the underlying etiology of her bruising. We reviewed this entity with her and reassured her that this is not a disease but merely an unfortunate effect of having joints that are more lax than averag e, which extends to blood vessels that are also more fragile than average. Other associations with joint hypermobility include uterine atony leading to post- hemorrhage, uterine prolapse and stress urinary incontinence. Joint hypermobility often results from abnormal collagen proteins that can also affect blood vessels. Accordingly, people with joint hypermobility often have easy bruising as Daniela does. She takes an SNRI which has mild antiplatelet effects, but on its own does not pose a significantlyincreased bleeding risk. We reviewed with her that NSAIDs are not contraindicated for her but that she may notice increased bruising and should limit their use to not much more than once or twice a week if possible. I recommended that she make sure her diet contains a good source of vitamin C to ensure blood vessel strength by supporting collagen synthesis. We will check a screening coagulation panel to assess for additional abnormalities as well as a TSHas hypothyroidism can be associated with a mild bleeding diathesis due to a mild platelet function disorder. Daniela had the opportunity to ask questions and indicated that all her questions were answered toher satisfaction. She'll follow up with us by video in a few weeks to review the test results and we'll finalize our recommendations at that time. Samira Oneill MD [facility] documented in this encounter Plan of Treatment Not on file documented as of this encounter Results * ABORh Type Manual (04/18/2022 10:10 AM EDT) Expires at [id number] on: 04/21/2022 [facility] ABORH Type A Pos [facility] Blood 04/18/2022 10:1 0 AM EDT 04/18/2022 10:16 AM EDT Narrative Resulting Agency Comment Spec In Lab Samira Oneill MD BLOOD BANK LAB ORD ERABLES Performing Organization Address City/[facility] Co de Phone Number [facility] [place] [address] * TSH (04/18/2022 10:10 AM EDT) Thyroid Stimulating Hormone 1.07 0.27 - 4.20 mcIU/mL [facility] Comment: Reference Interval (mcIU/mL): Females: ??First Trimester: 0.23-3.88 ??Second Trimester: 0.22-3.90 ??Third Trimester: 0.44-4.66 Blood 04/18/2022 10:1 0 AM EDT 04/18/2022 10:32 AM EDT Narrative Resulting Agency Comment Spec In Lab Samira Oneill MD CHEMISTRY ORDERABL ES [facility] [place] [address] documented in this encounter Visit Diagnoses Diagnosis Easy bruising Other symptoms involving skin and integumentary tissues Benign joint hypermobility syndrome documented in this encounter Care Teams Ore Fielder Relationship Specialty Start Date End Date Presley Santillan MD [address] [place] [address] PCP - General Internal Medicine 02/10/17 documented as of this encounter
--- OUTSIDE RECORDS SUMMARY | 2024-05-03 07:19 | XMS_ITS | Encounter Summary ---
Author Organization [facility] Address [facility] [place] [address] Care Team Providers Care Environmental Compliance Engineer Name Role Phone Presley Santillan MD Primary Care Provider Encounter Details Date Type Department Care Team (Late st Contact Info) Description 12/20/2018 Orders Only Hematology/Oncology at [address] [phone] Mercedez Whitfield MD [facility] [address] [place] [address] Idiopathic thrombocytopenic purpura Social History Tobacco Use Types Packs/Day Years [...] documented as of this encounter Visit Diagnoses Diagnosis Idiopathic thrombocytopenic purpura Immune thrombocytopenic purpura documented in this encounter Care Teams Environmental Compliance Engineer Relationship Specialty Start Date End Date Presley Santillan MD [address] [place] [address] PCP - General Internal Medicine 02/10/17 documented as of this encounter
--- OUTSIDE RECORDS SUMMARY | 2024-05-03 07:19 | XMS_ITS | Encounter Summary ---
Author Organization [facility] [place] [address] Care Team Providers Care Demolition Crane Operator Name Role Phone Presley Santillan MD Primary Care Provider [phone] Reason for Visit * Reason Onset Date Comments Labs Only 10/01/2018 Lab Tracking Encounter Details Date Type Department Care Team (Late st Contact Info) Description 10/01/2018 Telephone Hematology/Oncology at [address] [address] Geovanna Quintero, RN Labs Only (Lab Tracking) Social History [...] encounter Miscellaneous Notes * Telephone Encounter - Geovanna Quintero, RN - 10/01/2018 4:57 PM EDT LAB TRACKING Yaneth Gardner [id number] Diagnosis: ITP Labs ordered: every 3 months CBC (and PRN if pt wants to see one, she will let us know she went to lab she realizes we may not get back to her for a few days with results) Medications: Dex 40mg x 4 days every 3 weeks completed 04/2017 Rituxan infusions x4 (03/11/17-04/01/17) Assessment:/Plan: Labs sent to Dr. Whitfield for review. The patient was called and given the results. In the future it would be helpful to send her a written reminder in the mail when labs are due. Results for YANETH GARDNER ( ) as of 10/01/2018 16:57 Ref. Range 10/07/2017 00:00 11/02/2017 00:00 12/01/2017 00:00 06/17/2018 00:00 10/01/2018 00:00 WBC Unknown 8.71 9.43 7.46 6.78 8.17 Hemoglobin Unknown 13.5 12.3 12.1 14.0 12.2 Hematocrit Unknown 39.0 35.7 35.3 40.2 36.8 Platelets Unknown 233 234 222 237 242 Neutr Abs (ANC) Unknown 6.48 5.87 3.90 3.81 4.55 documented in this encounter Plan of Treatment Not on file documented as of this encounter Procedures Procedure Name Priority Date/Time Associated Diagnosis Comments CBC (WITH DIFF) Routine 10/01/2018 documented in this encounter Results * CBC (with Diff) (10/01/2018) White Blood Cell 8.17 Hemoglobin 12.2 Hematocrit 36.8 Platelet 242 Neutrophil Absolute (ANC) - Automated 4.55 Blood specimen (specimen) 10/01/2018 Mercedez Whitfield MD HEMATOLOGY ORDER [place] documented in this encounter Visit Diagnoses Not on filedocumented in this encounter Care Teams Demolition Crane Operator Relationship Specialty Start Date End Date Presley Santillan MD [address] [place] [address] PCP - General Internal Medicine 02/10/17 documented as of this encounter
--- OUTSIDE RECORDS SUMMARY | 2024-05-03 07:19 | XMS_ITS | Encounter Summary ---
Author Organization [facility] [place] [address] Care Team Providers Care Ip Network Architect Name Role Phone Presley Santillan MD Primary Care Provider Reason for Visit * Reason Onset Date Comments Labs Only 09/23/2017 lab tracking Encounter Details Date Type Department Care Team (Late st Contact Info) Description 09/23/2017 Telephone Hematology/Oncology at [address] [phone] Anamaria Lamas RN Labs Only (lab tracking) Social History Tobacco Use Types Packs/Day Years [...] encounter Miscellaneous Notes * Telephone Encounter - Anaamria Lamas RN - 09/23/2017 4:28 PM EDT LAB TRACKING Yaneth Gardner [id number] Diagnosis: ITP Labs ordered: every 4 weeks CBC (and PRN if pt wants to see one , she will let us know she went to lab she realizes we may not get back to her for a few days with results) Medications: Dex 40mg x 4 days every 3 weeks completed 04/2017 Rituxan infusions x4 (03/11/17-04/01/17) Assessment: Patient states she is well without any bleeding issues. Plan: saw Dr. Whitfield in clinic today will continue labs as follows September, October, December, Feb , see provider in Feb. Results for YANETH GARDNER ( ) as of 09/23/2017 16:30 Ref. Range 08/26/2017 00:00 09/23/2017 00:00 WBC Unknown 6.34 7.27 Hemoglobin Unknown 13.4 13.2 Hematocrit Unknown 38.6 38.7 Platelets Unknown 195 201 Neutr Abs (ANC) Unknown 3.51 4.34 Date WBC HGB/HCT PLT ANC PLAN LABS 07/31/17 8.59 12.8/38.0 201k 6.04 Patient has been under the weather. Labs again first week of August. 07/07/17 8.24 12.5/36.7 237k 5.45 Had bruising on knees and elbows [facility] 07/28/18 06/01/17 7.27 12.2/36.4 209k 3.86 Stopped dex [facility] 06/30/16 05/25/17 8.15 12.2/35.5 153k 5.21 Dex 40 mg 05/25-05/28 [facility] 06/1505/04/17 7.77 12.4/36.3 153k 4.74 Dex 40 mg 05/04-05/07 [facility] 05/2504/20/17 10.15 12.6/35.2 175k 5.67 Completed 4 days of dex 04/16/17 [facility] 05/04/17 04/10/17 10.44 12.3/36.1 112k 7.26 4ht cycle dex start 04/13. Prior to vs with Dr Whitfield on 04/2203/30/17 9.57 12.7/36.1 206k 5.04 4th Rituxan due03/31 Labs again on 04/0703/24/17 7.87 12/34.9 120k 5.13 3rd rituxan due 03/25 Labs again 03/31/17 03/16/17 11.79 12.1/34.8 129k 8.18 2nd Rituxan given 03/18 [facility] 03/2403/06/17 11.59 11.8/35.4 166k 9.67 1st rituxan given 03/11 [facility] 03/16 documented in this encounter Plan of Treatment Not on file documented as of this encounter Procedures Procedure Name Priority Date/Time Associated Diagnosis Comments CBC (WITH DIFF) Routine 09/23/2017 documented in this encounter Results * CBC (with Diff) (09/23/2017) White Blood Cell 7.27 Hemoglobin 13.2 Hematocrit 38.7 Platelet 201 Neutrophil Absolute (ANC) - Automated 4.34 Blood specimen (specimen) 09/23/2017 Historical Provider HEMATOLOGY ORDERA BLES documented in this encounter Visit Diagnoses Not on filedocumented in this encounter Care Teams Ip Network Architect Relationship Specialty Start Date End Date Presley Santillan MD [address] [place] [address] PCP - General Internal Medicine 02/10/17 documented as of this encounter
--- OUTSIDE RECORDS SUMMARY | 2024-05-03 07:19 | XMS_ITS | Encounter Summary ---
Author Organization [facility] Address [facility] [place] [address] Care Team Providers Care Irish Moss Gatherer Name Role Phone Presley Santillan MD Primary Care Provider Encounter Details Date Type Department Care Team (Late st Contact Info) Description 11/03/2022 Telephone Plastic Surgery at [facility] [place] [phone] Vikki Ford Social History Tobacco Use Types Packs/Day Years [...] place to sleep or slept in a skilled nursing (including now)? No 04/18/2022 [facility] IP[facility] Inpatient [...] encounter Miscellaneous Notes * Telephone Encounter - Vikki Ford - 11/03/2022 2:59 PM EDT ----- Message from ZAHRA Baum sent at 11/03/2022 2:44 PM EDT ----- Regarding: referral Apparently this patient wants an external OT appointment closer to home. That's what she told OT but she did not give them a facility name.. can we call her when you get a chance and see where she would like a referral sent to? I'm happy to send one wherever she likes. Thanks milo documented in this encounter Plan of Treatment Not on file documented as of this encounter Visit Diagnoses Not on filedocumented in this encounter Care Teams Irish Moss Gatherer Relationship Specialty Start Date End Date Presley Santillan MD [address] [place] [address] PCP - General Internal Medicine 02/10/17 documented as of this encounter
--- OUTSIDE RECORDS SUMMARY | 2024-05-03 07:19 | XMS_ITS | Encounter Summary ---
Author Organization [facility] Address [facility] [place] [address] Care Team Providers Care Lay Out Drafter Name Role Phone Presley Santillan MD Primary Care Provider Reason for Referral * Occupational Therapy (Routine) - Closed Specialty Diagnoses / Procedures Referred By Daryl t Referred To Contact Diagnoses Carpal tunnel syndrome, bilateral Christian Abdullahi MD [facility] [address] Unknown None Referral ID Status Reason Start Date Expiration Date V isits Requested Visits Authorized [id number] Closed Evaluate and Treat 10/17/2022 04/15/2023 12 12 Encounter Details Date Type Department Care Team (Late st Contact Info) Description 10/17/2022 Orders [place] [address] Christian Abdullahi MD [facility] [place] [address] Carpal tunnel syndrome, bilateral (Primary Dx) Social History Tobacco Use Types Packs/Day Years [...] place to sleep or slept in a [facility] (including now)? No 04/18/2022 Sex and Gender Information Value Date Recorded Sex Assigned at Not on file Gender Identity Not on file Sexual Orientation Not on file documented as of this encounter Plan of Treatment Scheduled Referrals Name Type Priority Associated Diagnoses Order Schedule Referral to Occupational Therapy Outpatient Referral Routine Carpal tunnel syndrome, bilateral Ordered: 10/17/2022 documented as of this encounter Visit Diagnoses Diagnosis Carpal tunnel syndrome, bilateral- Primary Carpal tunnel syndrome documented in this encounter Care Teams Lay Out Drafter Relationship Specialty Start Date End Date Presley Santillan MD [address] [place] [address] PCP - General Internal Medicine 02/10/17 documented as of this encounter
--- OUTSIDE RECORDS SUMMARY | 2024-05-03 07:19 | XMS_ITS | Encounter Summary ---
Author Organization [facility] Address [facility] [place] [address] Care Team Providers Care Cook Fruit Name Role Phone Presley Santillan MD Primary Care Provider Reason for Visit * Reason Comments Follow Up Surgery S/p re-release right carpal tunnel with median nerve Encounter Details Date Type Department Care Team (Late st Contact Info) Description 02/02/2023 10:20 AM EDT Office [place] [address] Jocelyn Padilla SPECIALTY DEVELOPMENT CONSULTANT [facility] [place] [address] Surgery follow-up Social History Tobacco Use Types Packs/Day Years Used Date Smoking Tobacco: Former Cigarettes 0 02/17/2010 - 02/17/2011 Smokeless Tobacco: Never Tobacco Cessation:Counseling Given: Not Answered Comments:quit years ago Alcohol Use Standard Drinks/Week [...] place to sleep or slept in a half-way (including now)? No 04/18/2022 DH IPV Inpatient [...] on file documented as of this encounter Patient Instructions * Patient Instructions* Jocelyn Padilla APRN - 02/02/2023 10:20 AM EDT Follow up 3 months Night splinting bilaterally - wrist cock-up. No activity restrictions. documented in this encounter Progress Notes * Jocelyn Padilla APRN - 02/02/2023 10:20 AM EDT Plastic Surgery Post Op Note Provider: Jocelyn Padilla APRN Date of surgery: 10/20/22 Procedure(s): re-release right carpal tunnel with median nerve exploration and fat grafting (Kaylen) Complications: None reported HPI: Pt reports being well. She did one visit of hand therapy and has continued exercises at home. She is now able to do everything she wants with her hands with the exception of kneading dough. She is inquiring about her left hand. She has some symptoms on that side. She is aware of not trying to bend her wrists at night and this makes it difficult for her to sleep. Examination: Patient is alert, conversant, comfortable, ambulating Incision: maturing scar. Full active ROM> Impression: Daniela Ruiz is a 32 y.o. female who was seen today for follow up afterthe above procedure. Please see the operative note for details. Improvement in symptoms on right. Mild CT symptoms on left. Plan: Follow up 3 months Night splinting bilaterally - wrist cock-up. No activity restrictions. Dr. Abdullahi in to examine patient. He agrees with this plan. documented in this encounter Plan of Treatment Not on file documented as of this encounter Visit Diagnoses Diagnosis Surgery follow-up Follow-up examination, following unspecified surgery documented in this encounter Care Teams Cook Fruit Relationship Specialty Start Date End Date Presley Santillan MD [address] [place] [address] PCP - General Internal Medicine 02/10/17 documented as of this encounter
--- OUTSIDE RECORDS SUMMARY | 2024-05-03 07:19 | XMS_ITS | Encounter Summary ---
Author Organization [facility] Address [facility] [place] [address] Care Team Providers Care Foot Worker Name Role Phone Presley Santillan MD Primary Care Provider Reason for Visit * Occupational Therapy (Routine) - Closed Specialty Diagnoses / Procedures Referred By Daryl sargent Referred To Contact Occupational Therapy Diagnoses Carpal tunnel syndrome, bilateral Vini Greene, [facility] [place] [address] [facility] [address] [place] [address] Referral ID Status Reason Start Date Expiration Date V isits Requested Visits Authorized [id number] Closed Evaluate and Treat 10/20/2022 10/20/2023 30 30 Encounter Details Date Type Department Care Team (Late st Contact Info) Description 11/03/2022 11:15 AM EDT Office Visit Occupational Therapy at [facility] [address] [place] [address] Mercedez Shaw, OT Carpal tunnel syndrome of right wrist Social History Tobacco Use Types Packs/Day Years Used Date Smoking Tobacco: Former Cigarettes 0 02/17/2010 - 02/17/2011 Smokeless Tobacco: Never Comments:quit years ago Alcohol Use Standard Drinks/Week Comments Yes 0 (1 standard drink = 0.6 oz pur e alcohol) rarely ever Overall Financial Resource Strain (CARDIA) Karstene r Date Recorded How hard is it [...] place to sleep or slept in a alf (including now)? No 04/18/2022 DH IPV Inpatient [...] as of this encounter Miscellaneous Notes * Initial Evaluation - Mercedez Shaw, OT - 11/03/2022 11:15 AM EDT OCCUPATIONAL THERAPY INITIAL UPPER EXTREMITY EVALUATION Referral Source: Vini Greene PA-C & Dr. Kaylen Benitez MD Follow-up: Early January Total Treatment time: 45 Minutes Timed Code Treatment Time: 0 minutes History of Current Condition: Daniela Ruiz is a 31 y.o. year old Ambidextrous hand dominant person but relies predominatnly on her R hand who presents 2/wks s/p R CTR with fat grafting performed by Dr. Abdullahi on 10/20/22. Daniela is referred to Occupational Therapy for evaluation andtreatment. Patient presents today alone. Pertinent History and/or Co-morbidities: 1. Carpal tunnel syndrome of right wrist Date of onset of symptoms: Years Date of surgery: 10/20/22 - Dr. 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 Open a tight or new jar Unable 2. Write Severe difficulty 3. Turn a calvillo Moderate difficulty 4. Prepare a meal Severe difficulty 5. Push open a heavy door Moderate difficulty 6. Place an object on a shelf above your head Unable 7. Do heavy snuff drier (eg wash cornejo, wash floors) Unable 8. Garden or do yard work Severe difficulty 9. Make a bed Moderate difficulty 10. Carry a shopping bag or briefcase Moderate difficulty 11. Carry a heavy object (over 10 lbs) Unable 12. Change a lightbulb overhead Unable 13. Wash or blow dry your hair Severe difficulty 14. Wash your back Severe difficulty 15. Put on a pullover sweater Mild difficulty 16. Use a knife to cut food Unable 17. Recreational activities which require little effort (eg cardplaying, knitting, etc) Unable 18. Recreational activities in which you take some force or impact through your arm, shoulder or hand (eg golf, hammering, tennis, etc) Unable 19. Recreational activities in which you move your arm freely (eg playing frisbee, badminton, etc) Unable 20. Manage transportation needs (getting from one place to another) Mild difficulty 21. Sexual activities Unable 22. During the past week, to what extent has your arm, shoulder or hand problem interfered with your normal social activities with family, friends, neighbours or groups? Extremely 23. During the past week, were you limited in your work or other regular daily activities as a result of your arm, shoulder or hand problem? Moderately limited 24. Arm, shoulder or hand pain Moderate 25. Arm, shoulder or hand pain when you performed any specific activity Severe 26. Tingling (pins and needles) in your arm, shoulder or hand Moderate 27. Weakness in your arm, shoulder or hand Extreme 28. Stiffness in your arm, shoulder or hand Extreme 29. During the past week, how much difficulty have you had sleeping because of the pain in your arm, shoulder or hand? Severe difficulty 30. I feel less capable, less confident or less useful because of my arm, shoulder or hand problem Strongly agree 1. Work Technique Severe Difficulty 2. Usual Work Severe Difficulty 3. Work As Well Severe Difficulty 4. Spending your usual amount of time doing your work Severe Difficulty Sports/Performing Arts No DASH Score 77.5 DASH - Work Score 75 Standardized measurement of functional limitation related to an upper extremity disability, using 0-100 scale indicating percent of perceived functional impairment. 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, ice Symptoms worsen with: Special Testing Completed: Incision: Sutures removed by plastics, bandaged Edema: Present throughout the hand Tenderness: Incisional Sensation: MF 'falling asleep sensation'; RF diminished sensation radial side Active Range of Motion: Right Eval 5/8 Left Wrist Extension/Flexion 37/10 74/80 Ulnar/Radial Deviation 12/10 30/31 Pronation/Supination WNL WNL Composite Extension/Flexion 15/20 76/45 Digits Right: Eval 5/8 MP PIP DIP DPC Thumb -12/46 +5/45 - 1.5 Index Finger 0/50 81 51 2 Middle Finger 57 77 57 2 Ring Finger 42 87 51 2 Small Finger 39 76 58 2 Digits Left: DPC Thumb 0 Index Finger 0 Middle Finger 0 Ring Finger 0 Small Finger 0 DPC = distance measured from finger tip to distal palmar crease Strength: deferred 2/2 2/wks post op Treatment Today: Evaluation LOW Complexity (49411) Educated patient in etiology and biomechanics as related to the patient's symptoms Instructed patient in: Rest and activity modification and Protocol related to current diagnosis Provided with home exercise program to include the reviewed therex below, see scanned documents Therex / HEP: Composite fist Tendon glides AROM wrist flex/ext Dispensed full finger compression glove and fingertip free compression glove for mgmt of edema Discussed scar tissue massage with lotion once her incision is closed Retrograde massage throughout the day for mgmt edema ASSESSMENT: Daniela has edema, decreased ROM, pain, and scar tissue mgmt causing functional deficits in ADL/IADL performance. Please see above, PSFS and DASH for specific functional deficits. Daniela Ruiz is able to demonstrate home exercises with written instructions provided. Daniela has identified needs for skilled therapy to address deficits noted during evaluation to maximize functional performance. Of note, she would like to receive therapy closer to home. Will message the plastics PA for an external referral. Daniela Ruiz has good potential for gains with therapy; potential barriers to progress include. Global Mental Function: With gross screening of patient's global mental functions, patient demonstrates orientation to person, place, time, and situation. Patient's affect/behavior is appropriate andcooperative today. PLAN: Pt plans to f/u at a therapy clinic closer to home. (X) Daniela Ruiz participated in the evaluation, collaborated on treatment goals, and agrees to the treatment plan. documented in this encounter Plan of Treatment Scheduled Referrals Name Type Priority Associated Diagnoses Order Schedule Referral to Occupational Therapy Outpatient Referral Routine Carpal tunnel syndrome, bilateral Ordered: 10/20/2022 documented as of this encounter Visit Diagnoses Diagnosis Carpal tunnel syndrome of right wrist Carpal tunnel syndrome documented in this encounter Care Teams Foot Worker Relationship Specialty Start Date End Date Presley Santillan MD [address] [place] [address] PCP - General Internal Medicine 02/10/17 documented as of this encounter
--- OUTSIDE RECORDS SUMMARY | 2024-05-03 07:19 | XMS_ITS | Encounter Summary ---
Author Organization [facility] [place] [address] Care Team Providers Care Carver And Checkerer Specials Name Role Phone Presley Santillan MD Primary Care Provider [phone] Encounter Details Date Type Department Care Team (Late st Contact Info) Description 03/02/2018 Telephone Hematology Oncology at [address] [address] Carlita Hoskins RN Social History Tobacco Use Types Packs/Day Years [...] encounter Miscellaneous Notes * Telephone Encounter - Carlita Hoskins RN - 03/02/2018 4:49 PM EDT Platelet count 233 No complaints Labs again in May documented in this encounter Plan of Treatment Not on file documented as of this encounter Visit Diagnoses Not on filedocumented in this encounter Care Teams Carver And Checkerer Specials Relationship Specialty Start Date End Date Presley Santillan MD [address] [place] [address] PCP - General Internal Medicine 02/10/17 documented as of this encounter
--- OUTSIDE RECORDS SUMMARY | 2024-05-03 07:19 | XMS_ITS | Encounter Summary ---
[place] [address] Care Team Providers Care Bone Density Technician Name Role Phone Presley Santillan MD Primary Care Provider Reason for Referral * Consultation (Routine) - Closed Specialty Diagnoses / Procedures Referred By Contac t Referred To Contact Hematology and Oncology Diagnoses Immune thrombocytopenic purpura Cora Robles APRN [address] [place] [address] [facility] [address] [place] [address] Referral ID Status Reason Start Date Expiration Date V isits Requested Visits Authorized [id number] Closed Consult, Test & Treat PCP Updated and/or Approved 12/25/2021 12/25/2022 1 1 Encounter Details Date Type Department Care Team (Latest Contact Info) Description 12/25/2021 Transcribe Orders eDH Incoming Referrals [phone] Cora Robles APRN [address] [place] [address] Immune thrombocytopenic purpura Social History Tobacco Use Types Packs/Day Years Used Date Smoking Tobacco: Former Cigarettes 0 02/17/2010 - 02/17/2011 Smokeless Tobacco: Never Comments:quit years ago Alcohol Use Standard Drinks/Week Comments Yes 0 (1 standard drink = 0.6 oz pur e alcohol) rarely ever Sex and Gender Information Value Date Recorded Sex Assigned at Not on file Gender Identity Not on file Sexual Orientation Not on file documented as of this encounter Plan of Treatment Scheduled Referrals Name Type Priority Associated Diagnoses Orde r Schedule Referral to Hematology and Oncology Outpatient Referral Routine Immune thrombocytopenic purpura Ordered: 12/25/2021 documented as of this encounter Visit Diagnoses Diagnosis Immune thrombocytopenic purpura documented in this encounter Care Teams Bone Density Technician Relationship Specialty Start Date End Date Presley Santillan MD [address] [place] [id number] PCP - General Internal Medicine 02/10/17 documented as of this encounter
--- OUTSIDE RECORDS SUMMARY | 2024-05-03 07:19 | XMS_ITS | Encounter Summary ---
Author Organization [facility] [place] [address] Care Team Providers Care Frit Burner Name Role Phone Presley Santillan MD Primary Care Provider [phone] Reason for Visit * Reason Onset Date Comments Labs Only 12/01/2017 Encounter Details Date Type Department Care Team (Late st Contact Info) Description 12/01/2017 Telephone Hematology Oncology at [address] [address] Kandis Hill I RN Labs Only Social History Tobacco Use Types Packs/Day Years [...] encounter Miscellaneous Notes * Telephone Encounter - Kandis Hill RN - 12/01/2017 3:01 PM EDT Labs have not been drawn. Placed call and left mesage on identified VM with request for call back. documented in this encounter Plan of Treatment Not on file documented as of this encounter Visit Diagnoses Not on filedocumented in this encounter Care Teams Frit Burner Relationship Specialty Start Date End Date Presley Santillan MD [address] [place] [address] PCP - General Internal Medicine 02/10/17 documented as of this encounter
--- OUTSIDE RECORDS SUMMARY | 2024-05-03 07:19 | XMS_ITS | Encounter Summary ---
Author Organization [facility] [place] [address] Care Team Providers Care Atomic Physics Teacher Name Role Phone Presley Santillan MD Primary Care Provider Reason for Visit * Reason Onset Date Comments Labs Only 06/17/2018 lab tracking Encounter Details Date Type Department Care Team (Late st Contact Info) Description 06/17/2018 Telephone Hematology/Oncology at [address] [address] Anamaria Lamas RN Labs Only [...] encounter Miscellaneous Notes * Telephone Encounter - Anamaria Lamas RN - 06/17/2018 2:34 PM EST LAB TRACKING Yaneth Gardner [id number] Diagnosis: ITP Labs ordered: every 3 months CBC (and PRN if pt wants to see one, she will let us know she went to lab she realizes we may not get back to her for a few days with results) Medications: Dex 40mg x 4 days every 3 weeks completed 04/2017 Rituxan infusions x4 (03/11/17-04/01/17) Assessment:/Plan: Labs sent to Dr. Whitfield for review, pt can have labs again in 3 months, spoke with pt and she will go around september 15. Results for YANETH GARDNER ( ) as of 06/17/2018 14:35 Ref. Range 09/23/2017 00:00 10/07/2017 00:00 11/02/2017 00:00 12/01/2017 00:00 06/17/2018 00:00 WBC Unknown 7.27 8.71 9.43 7.46 6.78 Hemoglobin Unknown 13.2 13.5 12.3 12.1 14.0 Hematocrit Unknown 38.7 39.0 35.7 35.3 40.2 Platelets Unknown 201 233 234 222 237 Neutr Abs (ANC) Unknown 4.34 6.48 5.87 3.90 3.81 documented in this encounter Plan of Treatment Not on file documented as of this encounter Procedures Procedure Name Priority Date/Time Associated Diagnosis Comments CBC (WITH DIFF) Routine 06/17/2018 documented in this encounter Results * CBC (with Diff) (06/17/2018) White Blood Cell 6.78 Hemoglobin 14.0 Hematocrit 40.2 Platelet 237 Neutrophil Absolute (ANC) - Automated 3.81 Blood specimen (specimen) 06/17/2018 Historical Provider HEMATOLOGY ORDERA BLES documented in this encounter Visit Diagnoses Not on filedocumented in this encounter Care Teams Atomic Physics Teacher Relationship Specialty Start Date End Date Presley Santillan MD [address] [place] [address] PCP - General Internal Medicine 02/10/17 documented as of this encounter
--- OUTSIDE RECORDS SUMMARY | 2024-05-03 07:19 | XMS_ITS | Encounter Summary ---
Author Organization Formerly [facility] [place] [address] Care Team Providers Care Hand Spinner Name Role Phone Presley Santillan MD Primary Care Provider Reason for Visit * Auth/Cert (Routine) Specialty Diagnoses / Procedures Referred By Contac t Referred To Contact Diagnoses CARPAL TUNNEL SYNDROME Procedures PRO REVISE MEDIAN N/CARPAL TUNNEL SURG PRO GRAFTING OF AUTOLOGOUS SOFT TISS BY DIRECT EXCISION PRO REVISE ULNAR NERVE AT WRIST PRO REVISE MEDIAN N/CARPAL TUNNEL SURG MEDIAN NERVE DECOMPRESSION (CARPAL TUNNEL RELEASE) (WRVU 4.97) GRAFTING OF AUTOLOGOUS SOFT TISSUE, OTHER, HARVESTED BY DIRECT EXCISION (FAT, DERMIS, OR FASCIA) (WRVU 6.68) NEUROPLASTY &/OR TRANSPOSITION, ULNAR NERVE AT WRIST (WRVU 4.97) MEDIAN NERVE DECOMPRESSION (CARPAL TUNNEL RELEASE) MARK (WRVU 4.97) Christian Abdullahi MD [facility] [place] [address] [facility] Referral ID Status Reason Start Date Expiration Date Visits Re quested Visits Authorized [id number] 1 1 Encounter Details Date Type Department Care Team (Late st Contact Info) Description 10/20/2022 1:44 PM EDT Anesthesia Event [facility] [place] [id number] Shawna Fletcher MD Palmer, Justin D, MD [facility] [place] [address] Anesthesia Record Procedure Summary Procedure Name Responsible Anesthesiologist Anesthesia Start Time Anesthesia Stop Time MEDIAN NERVE DECOMPRESSION (CARPAL TUNNEL RELEASE) (WRVU 4.97) (Right: Hand) Shawna Fletcher MD 10/20/22 1344 10/20/22 1554 Events Date Time Event Comment 10/20/2022 1252 1344 AN Verify 1344 Start 1344 An Start Data 1349 An Induction 1352 An Intubation 1354 Anesthesia Ready 1414 An Tourn Inflated 1415 Procedure Start 1436 Break/Relief In I assumed ca re for Break Relief before which we: 1. Identified the patient 2. Identified the responsible provider(s) 3. Reviewed the pertinent medical history 4. Discussed the surgical plan and course 5. Reviewed intra-op anesthesia management and issues during anesthesia 6. Set expectations for the relief (and/or post-procedure) period 7. Allowed opportunity for questions and acknowledgement of understanding Catrachita Strong CRNA 1451 Break/Relief Out 1554 Stop 1600 an stop data 1605 Recovery or ICU Handoff Naomie ent care was transferred to the destination unit staff after review of the patient's medical history, current anesthetic/surgical status and plan, according to the Provider Handoff Checklist. Meds Name Total Propofol 250 mg Propofol INF 465.75 mg Midazolam 2 mg IV Lidocaine 50 mg ceFAZolin 2 g Dexmedetomidine 20 mcg PHENYLephrine 480 mcg HYDROmorphone 2 mg/mL 1 mg diphenhydrAMINE 25 mg Lactated Ringers 850 mL * Agents Name O2 Air N2O Sevoflurane (et) * Blood No blood administrations on file. Lines, Drains, and Airways Type Details Placement Removal Supraglottic Mask Ventilation: No t Attempted (0); LMA Type: iGel; LMA Size: 3; Inserted by: temitope alvarez 10/20/22 1357 by Eder Nice MD Incision 10/20/22; 1415; Righ t; palm 10/20/22 1415 by Rock De Dios, RN Incision 10/20/22; 1518; medial; lower quadrant; non-laparascopic puncture 10/20/22 1518 by Rock De Dios, RN (RETIRED) Peripheral IV Line - Single Lumen 10/20/22; 1231; metacarpal vein (top of hand), left; [id number] catheter system; Anatomical Landmarks; 22 gauge; emk; no longer indicated, catheter/device intact, removed per policy/procedure; 10/20/22; 165310/20/22 1231 by Cyndi Lepe RN 10/20/22 1654 by Hoang Acevedo RN documented in this encounter Social History Tobacco Use Types Packs/Day Years [...] on file documented as of this encounter OR Notes * Anesthesia Postprocedure Evaluation - Eder Nice MD - 10/20/2022 4:04 PM EDT Department of Anesthesiology Post-procedure Note Patient: Daniela Ruiz Procedure Summary Date: 10/20/22 Room / Location: [address] Anesthesia Start: 1344 Anesthesia Stop: 1554 Procedures: MEDIAN NERVE DECOMPRESSION (CARPAL TUNNEL RELEASE) (WRVU 4.97) (Right: Hand) GRAFTING OF AUTOLOGOUS SOFT TISSUE, OTHER, HARVESTED BY DIRECT EXCISION (FAT, DERMIS, OR FASCIA) (WRVU 6.68) (Perineum) MEDIAN NERVE DECOMPRESSION (CARPAL TUNNEL RELEASE) MARK (WRVU 4.97) (Right: Hand) Diagnosis: Carpal tunnel syndrome of right wrist (CARPAL TUNNEL SYNDROME) Surgeons: Christian Abdullahi MD; Daniela Justin MD Responsible Provider: Shawna Fletcher MD Anesthesia Type: general ASA Status: 2 All Anesthesia Providers: Anesthesiologist: Shawna Fletcher MD Ip Network Architect: Eder Nice MD Vitals Value Taken Time BP 106/76 10/20/22 1600 Temp 36.2 ??C (97.2 ??F) 10/20/22 1551 Pulse 76 10/20/22 1603 Resp 14 10/20/22 1551 SpO2 100 % 10/20/22 1602 Pain Level 0 10/20/22 1600 Vitals shown include unvalidated device data. Patient Location: PACU/[facility] Level of Consciousness: Conscious but Sleepy Pain Management: Satisfactory Analgesia PONV: None Cardiovascular Status: Hemodynamically Stable Respiratory Status: Stable Respiratory Status Postoperative Fluid Status: Intravascular EUvolemia Possible Anesthetic Complications: NONE apparent at time of evaluation Final Primary Anesthesia Type: General (The anesthetic type performed was the same as planned.) Comments: * Anesthesia Preprocedure Evaluation - Shawna Fletcher MD - 10/19/2022 8:05 PM EDT Pre-Anesthesia Evaluation for: Daniela Ruiz a 31 y.o. female. Procedure(s): MEDIAN NERVE DECOMPRESSION (CARPAL TUNNEL RELEASE) (WRVU 4.97) GRAFTING OF AUTOLOGOUS SOFT TISSUE, OTHER, HARVESTED BY DIRECT EXCISION (FAT, DERMIS, OR FASCIA) (WRVU 6.68) NEUROPLASTY &/OR TRANSPOSITION, ULNAR NERVE AT WRIST (WRVU 4.97) MEDIAN NERVE DECOMPRESSION (CARPAL TUNNEL RELEASE) MARK (WRVU 4.97) Patient Active Problem List Diagnosis Date Noted ??? Carpal tunnel syndrome, bilateral 07/19/2022 ??? Irritable bowel syndrome with both constipation and diarrhea 07/13/2017 ??? Acute ITP 02/10/2017 No past medical history on file. Past Surgical History: Procedure Laterality Date ??? PRO COLONOSCOPY, BIOPSY N/A 07/18/2019 COLONOSCOPY FLEXIBLE, WITH BX (WRVU 3.66) performed by Marino Smith MD at [facility] ??? PRO COLONOSCOPY, DIAGNOSTIC N/A 06/25/2017 COLONOSCOPY, DIAGNOSTIC performed by Marino Smith MD at [facility] ??? PRO UPPER GI ENDOSCOPY, DIAGNOSTIC N/A 06/25/2017 EGD, UPPER GI ENDOSCOPY performed by Marino Smith MD at [facility] Social History Tobacco Use ??? Smoking status: Former Years: 1.00 Types: Cigarettes Quit date: 02/17/2011 Years since quittin.6 ??? Smokeless tobacco: Never ??? Tobacco comments: quit years ago Substance Use Topics ??? Alcohol use: Yes Comment: rarely ever Social History Substance and Sexual Activity Drug Use Yes Comment: PRN valium Allergies Allergen Reactions ??? Zofran Odt [Ondansetron] Other (See Comments) MAKES ME RESTLESS ??? [place] Other (See Comments) Abdominal pain ??? Cis Free Text Allergy environmental. CIS - Allergic Rhinitis ??? Gluten Other (See Comments) Abdominal pain/intestinal pain ??? Milk Containing Products Other (See Comments) Abdominal/intestinal pain ??? Peanut Other (See Comments) Abdominal pain ??? Yeast Other (See Comments) Abdominal/intestinal pain ??? Cis Free Text Allergy sugars. CIS - Sensitive Medications: MAR and/or home medications have been reviewed. Physical Exam: Preprocedure Vitals Current as of 10/19/222004 No BP, pulse, respiration, SpO2, or temperature recorded. Height: Weight: BMI: IBW: Airway Assessment: Mallampati: I TM distance: >3 FB Neck ROM: full Cardiovascular Assessment: system normal Pulmonary Assessment: unlabored breathing Dental Assessment: Misc Assessment: IV access: Peripheral line Last Filed Perioperative Cognitive Screening None Anesthesia Plan: ASA 2 general, with a(n) intravenous induction 31f who presents for right median nerve decompression/fat grafting. PMH includes acute incident of ITP. No anesthesia/airway history other than colo/EGD. Last plt 215 in 2021. Plan: MARIANNE Nice MD Anesthesiology PGY4 Region - Other Informed Consent: Anesthetic plan and risks discussed with patient. Plan discussed with resident and attending. Anesthesia Screening documented in this encounter Plan of Treatment Not on file documented as of this encounter Visit Diagnoses Not on filedocumented in this encounter Administered Medications Inactive Administered Medications - up to 3 most recent administrations Medication Order MAR Action Action Date Dose Rate Site ceFAZolin (Ancef) 1 g in dextrose 5% 50 mL infusion Intravenous, PRN, Starting on Thu10/20/22 at 1354, Until Thu10/20/22 at 1554, Administer over 30 Minutes, Anesthesia Intra-op Given 10/20/2022 1:54 PM EDT 2 g dexmedeTOMIDine (Precedex) (4 mcg/mL) bolus injection (Anesthsia) Intravenous, PRN, Starting on Thu10/20/22 at 1402, Until Thu10/20/22 at 1554, Anesthesia Intra-op, Routine Given 10/20/2022 2:10 PM EDT 8 mcg Given 10/20/2022 2:02 PM EDT 4 mcg Given 10/20/2022 1:54 PM EDT 8 mcg diphenhydrAMINE (Benadryl) (50 mg/mL) injection Intravenous, PRN, Starting on Thu10/20/22 at 1530, Until Thu10/20/22 at 1554, Anesthesia Intra-op, Routine Given 10/20/2022 3:30 PM EDT 25 mg HYDROmorphone (Dilaudid) (2 mg/mL) multi-dose injection solution Intravenous, PRN, Starting on Thu10/20/22 at 1427, Until Thu10/20/22 at 1554, Anesthesia Intra-op, Routine Given 10/20/2022 3:26 PM EDT 0.2 mg Given 10/20/2022 2:53 PM EDT 0.2 mg Given 10/20/2022 2:27 PM EDT 0.6 mg lactated ringers infusion Intravenous, CONTINUOUS PRN, Starting on Thu10/20/22 at 1344, Until Thu10/20/22 at 1554, Anesthesia Intra-op New Bag 10/20/2022 1:44 PM EDT lidocaine (pf) (Xylocaine) (20 mg/mL) 2% injection syringe Intravenous, PRN, Starting on Thu10/20/22 at 1344, Until Thu10/20/22 at 1554, Anesthesia Intra-op, Routine Given 10/20/2022 1:44 PM EDT 50 mg midazolam (pf) (Versed) (1 mg/mL) multi-dose injection Intravenous, PRN, Starting on Thu10/20/22 at 1344, Until Thu10/20/22 at 1554, Anesthesia Intra-op, Routine Given 10/20/2022 1:44 PM EDT 2 mg PHENYLephrine in NS (PF) (FRANDY-SYNEPHRINE) 0.8 mg/10 mL (80 mcg/mL) multi-dose injection Syrg Intravenous, PRN, Starting on Thu10/20/22 at 1402, Until Thu10/20/22 at 1554, Anesthesia Intra-op, Routine Given 10/20/2022 2:50 PM EDT 80 mcg Given 10/20/2022 2:40 PM EDT 80 mcg Given 10/20/2022 2:31 PM EDT 80 mcg propofoL (Diprivan) (10 mg/mL) infusion Intravenous, CONTINUOUS PRN, Starting on Thu10/20/22 at 1354, Until Thu10/20/22 at 1554, Anesthesia Intra-op, Routine Rate/Dose Change 10/20/2022 2:15 PM EDT 75 mcg/kg/min 27.945 mL/hr Rate/Dose Change 10/20/2022 2:06 PM EDT 100 mcg/kg/min 37. 26 mL/hr New Bag 10/20/2022 1:54 PM EDT 50 mcg/kg/min 18.63 mL/h r propofoL (Diprivan) 10 mg/mL bolus injection (Anesthesia) Intravenous, PRN, Starting on Thu10/20/22 at 1349, Until Thu10/20/22 at 1554, Anesthesia Intra-op Given 10/20/2022 1:51 PM EDT 50 mg Given 10/20/2022 1:49 PM EDT 200 mg documented in this encounter Care Teams Hand Spinner Relationship Specialty Start Date End Date Presley Santillan MD [address] [place] [address] PCP - General Internal Medicine 02/10/17 documented as of this encounter
--- OUTSIDE RECORDS SUMMARY | 2024-05-03 07:19 | XMS_ITS | Encounter Summary ---
Author Organization Formerly [facility] [place] [address] Care Team Providers Care Learning Disabilities Teacher Name Role Phone Presley Santillan MD Primary Care Provider [phone] Reason for Visit * Auth/Cert (Routine) Specialty [...] (CARPAL TUNNEL RELEASE) MARK (WRVU 4.97) Christian Haynes MD [facility] [address] [facility] Referral ID Status Reason Start Date Expiration Date Visits Re quested Visits Authorized [id number] 1 1 Encounter Details Date Type Department Care Team (Late st Contact Info) Description 10/20/2022 1:20 PM EDT - 10/20/2022 3:40 PM EDT Surgery Outpatient [place] [address] Christian Haynes MD [facility] [address] MEDIAN NERVE DECOMPRESSION (CARPAL TUNNEL RELEASE) (WRVU 4.97) Social History Tobacco Use Types Packs/Day Years [...] place to sleep or slept in a correction (including now)? No 04/18/2022 DH IPV Inpatient [...] Sign Reading Time Taken Comments Blood Pressure 122/78 10/20/2022 12:20 PM EDT Pulse 67 10/20/2022 12:20 PM EDT Temperature 36.6 ??C (97.9 ??F) 10/20/2022 12:20 PM E DT Respiratory Rate 18 10/20/2022 12:20 PM EDT Oxygen Saturation 99% 10/20/2022 12:20 PM EDT Inhaled Oxygen Concentration - - Weight 62.1 kg (137 lb) 10/20/2022 12:12 PM EDT Height 160 cm (5' 3) 10/20/2022 12:12 PM EDT Body Mass Index 24.27 10/20/2022 12:12 PM EDT documented in this encounter Discharge Instructions * Discharge Instructions* Cyndi Lepe RN - 10/20/2022 11:57 AM EDT General Anesthesia Discharge Instructions Go home and rest. You may be sleepy for several hours. Take it easy as sudden position changes may cause nausea and/or dizziness. Use caution on stairs. Do not smoke if you are alone. Follow a light to regular diet as tolerated today. If nausea occurs, start with clear liquids, and progress slowly to a regular diet. Do not drive, operate machinery, drink alcoholic beverages or make any legal decisions after havinggeneral anesthesia. The medications given change your reaction time and alter your judgement. IV site -- slight redness is normal, you can use warm compresses. If tenderness and redness increases or foul drainage occurs, please contact your M.D. Patients who have had endotracheal tubes/LMA (tubes used by the anesthesia staff to ensure a safe airway during your operation) may have a sore throat. This is normal and cold liquids or soothing lozenges will help ease this discomfort. Narcotic pain medications can cause constipation, please ask the surgeons office what they recommend for prevention of this. Some non-pharmaceutical means of constipation prevention include increasing intake of fluids, eating more fruits and vegetables as well as fruit juices. If you are uncomfortable and/or unable to urinate within 8 hours of discharge and it is before 5 pm, call your physician. If it is after 5pm go to the closest emergency room or call the hospital railroad signal and switch operator at [phone] and ask for physician correspondence analyst covering for your physician. Questions or problems after 5pm or on a weekend: Call the [facility] railroad signal and switch operator at and ask for the physician correspondence analyst covering for your doctor. At 1215pm you received 1000 mg of acetaminophen- Your next dose should not be taken before 8 hours have passed. Next dose not before- 815pm You should not take more than a total of 3000 mg of acetaminophen in a 24 hour period. * Patient Instructions* Kandi Bal APRN - 10/20/2022 11:34 AM EDT Hand Discharge Instructions Keep dressing on and dry for 48 hours, then remove and leave the incision open to air. Keep hand elevated on pillow at night. Ok to shower, but put a bag over your hand and the dressing to keep dry for the next two days, thenit is ok to let water run over the incision. Do not submerge your incision in water until your follow-up appointment. Take Ibuprofen (Motrin, Advil) and acetaminophen (Tylenol) around the clock for pain relief. Take narcotic pain medication as needed for breakthrough pain. Maximum dose of acetaminophen is 4000mg perday. Ok to return to light duty with your hand, however, you should not use the hand to lift anything for six weeks after surgery. Call our office if: Fingers /orand hand are white, numb or cold. You have signs of infection A temperature over 100.4 F. Redness of the incision lines that is beginning to spread away from the incision. Yellow pus-like or foul smelling drainage from the incision or drain site. Increase pain/discomfort that is not relieved by your pain medication. You will have an appointment to have your sutures removed in 14 days. To make an appointment or forquestions about scheduling, please contact our administrative offices at [phone] Future Appointments Date Time Provider Department Center 11/03/2022 1:40 PM Kandi Bal APRN [facility] [place] [facility] For clinical questions, please call our nurses at [phone] Both offices are open Thursday thru Thursday 8a - 5p. With emergencies after hours, call the hospital railroad signal and switch operator at [phone] and ask for the Plastic Surgery Resident correspondence analyst. documented in this encounter Medications at Time of Discharge Medication Sig Dispensed Refills Start Date End Date famotidine (Pepcid) 20 mg tablet Take 20 mg by mouth daily. 08/25/2022 cyclobenzaprine (FLEXERIL) 5 mg Tablet daily as needed. 07/10/2017 oxyCODONE (Roxicodone) 5 mg tablet Take 1 tablet by mouth every 6 hours as needed for Pain (severe pain 8-10). 10 tablet 10/20/2022 02/02/2023 documented as of this encounter Progress Notes * Hoang Acevedo RN - 10/20/2022 4:56 PM EDT Discharge instructions and medications reviewed with patient and escort. All questions answered andwritten copy sent home with patient. Patient ambulated to car for discharge accompanied by [facility] staff member. documented in this encounter H&P Notes * Vini Greene PA - 10/20/2022 1:22 PM EDT Patient Name: Daniela Ruiz Patient Age: 31 y.o. Birthdate: 1990 Admit date: 10/20/2022 Attending Physician: Christian Haynes MD PLASTIC SURGERY INTERVAL H&P CC: residual paraesthesia and worsening of symptoms bilaterally, s/p carpal tunnel release S: Daniela Ruiz's condition is unchanged since H&P originally performed. Denies any new ED visits, hospitalizations, trauma, or new events. Overall the patient has been doing well and now presents for right hand re release carpal tunnel with median nerve exploration, nerve repair and fat grafting. History reviewed. No pertinent past medical history. Past Surgical History: Procedure Laterality Date ??? PARTIAL HYSTERECTOMY 12/10/2020 [facility] ??? PRO COLONOSCOPY, BIOPSY N/A 07/18/2019 COLONOSCOPY FLEXIBLE, WITH BX (WRVU 3.66) performed by Marino Smith MD at [facility] ??? PRO COLONOSCOPY, DIAGNOSTIC N/A 06/25/2017 COLONOSCOPY, DIAGNOSTIC performed by Marino Smith MD at [facility] ??? PRO UPPER GI ENDOSCOPY, DIAGNOSTIC N/A 06/25/2017 EGD, UPPER GI ENDOSCOPY performed by Marino Smith MD at [facility] Allergies Allergen Reactions ??? Zofran Odt [Ondansetron] Other (See Comments) MAKES ME RESTLESS ??? Buckner Other (See Comments) Abdominal pain ??? Cis Free Text Allergy environmental. CIS - Allergic Rhinitis ??? Gluten Other (See Comments) Abdominal pain/intestinal pain ??? Milk Containing Products Other (See Comments) Abdominal/intestinal pain ??? Peanut Other (See Comments) Abdominal pain ??? Yeast Other (See Comments) Abdominal/intestinal pain ??? Cis Free Text Allergy sugars. CIS - Sensitive No current facility-administered medications on file prior to encounter. Current Outpatient Medications on File Prior to Encounter Medication Sig Dispense Refill ??? famotidine (Pepcid) 20 mg tablet Take 20 mg by mouth daily. ??? cyclobenzaprine (FLEXERIL) 5 mg Tablet daily as needed. History reviewed. No pertinent family history. Social History Socioeconomic History ??? Marital status: Single Spouse name: Not on file ??? Number of children: Not on file ??? Years of education: Not on file ??? Highest education level: Not on file Occupational History ??? Not on file Tobacco Use ??? Smoking status: Former Years: 1.00 Types: Cigarettes Quit date: 02/17/2011 Years since quittin.6 ??? Smokeless tobacco: Never ??? Tobacco comments: quit years ago Substance and Sexual Activity ??? Alcohol use: Yes Comment: rarely ever ??? Drug use: Yes Frequency: 7.0 times per week Types: Marijuana Comment: PRN valium ??? Sexual activity: Yes Partners: Male control/protection: Surgical Comment: partner vasectomy Other Topics Concern ??? Not on file Social History Narrative ??? Not on file Social Determinants of Health Financial Resource Strain: Medium Risk ??? Difficulty of Paying Living Expenses: Somewhat hard Food Insecurity: No Food Insecurity ??? Worried About Running Out of Food in the Last Year: Never true ??? Ran Out of Food in the Last Year: Never true Transportation Needs: No Transportation Needs ??? Lack of Transportation (Medical): No ??? Lack of Transportation (Non-Medical): No Physical Activity: Not on file Housing Stability: Low Risk ??? Unable to Pay for Housing in the Last Year: No ??? Number of Places Lived in the Last Year: 1 ??? Unstable Housing in the Last Year: No Review of Systems: Constitutional: denies fever, chills Skin: denies rashes or skin changes HEENT, CV, Resp, GI, , Neuro: negative O: Patient Vitals for the past 24 hrs: BP Temp Temp src Pulse Resp SpO2 Height Weight 10/20/22 1220 122/78 36.6 ??C (97.9 ??F) Temporal 67 18 99 % -- -- 10/20/22 1212 -- -- -- -- -- -- 160 cm (5' 3) 62.1 kg (137 lb) NAD, A&Ox3 Non-labored respirations, clear to auscultation bilaterally Regular rate and rhythm Site: marked by attending AP: 31 y.o. female with CARPAL TUNNEL SYNDROME. - After extensive discussion of the risks, benefits, and alteratives of surgical intervention, the patient consented to proceed with surgery. - IV antibiotics ordered - Proceed to OR for: Procedure(s): MEDIAN NERVE DECOMPRESSION (CARPAL TUNNEL RELEASE) (WRVU 4.97) GRAFTING OF AUTOLOGOUS SOFT TISSUE, OTHER, HARVESTED BY DIRECT EXCISION (FAT, DERMIS, OR FASCIA) (WRVU 6.68) NEUROPLASTY &/OR TRANSPOSITION, ULNAR NERVE AT WRIST (WRVU 4.97) MEDIAN NERVE DECOMPRESSION (CARPAL TUNNEL RELEASE) MARK (WRVU 4.97) ZAHRA Baum documented in this encounter Miscellaneous Notes * Op Note - Christian Haynes MD - 10/20/2022 2:15 PM EDT [facility] [place] Patient Name: Daniela Ruiz : [id number] MR#: [id number] Case Date: 10/20/2022 Surgeon: Surgeon(s) and Role: Panel 1: * Christian Haynes MD - Primary Panel 2: * Daniela Justin MD - Primary * Kathryn Baldwin MD - Resident Preoperative diagnosis: CARPAL TUNNEL SYNDROME Postoperative diagnosis: CARPAL TUNNEL SYNDROME Procedure(s) (LRB): MEDIAN NERVE DECOMPRESSION (CARPAL TUNNEL RELEASE) (WRVU 4.97) (Right) GRAFTING OF AUTOLOGOUS SOFT TISSUE, OTHER, HARVESTED BY DIRECT EXCISION (FAT, DERMIS, OR FASCIA) (WRVU 6.68) (N/A) MEDIAN NERVE DECOMPRESSION (CARPAL TUNNEL RELEASE) MARK (WRVU 4.97) (Right) Neurolysis of median nerve with magnification and fat grafting from abdomen Anesthesia: General Estimated Blood Loss: Specimens removed during surgery: None Drains: * No LDAs found * Surgical Closure: Primary Closure - skin incision is completely closed without any wires, celina, drains or other devices Disposition: awakened from anesthesia, extubated and taken to the recovery room in a stable condition, having suffered no apparent untoward event. Condition: doing well without problems (Please see the Surgical Encounter Summary for any Implant and Specimen details pertinent to this patient.) HPI/Surgical Indications: Patient is s/p endoscopic release of right median nerve with persistent pain and numbness Procedure Description: patient brought to the OR. Time out was done. Patient was given general anesthesia. Right arm and abdomen were prepped and draped in A sterile manner. Tourniquet was applied tothe right arm for one hour. Local anesthesia block was done of abdomen and right wrist. Nerve median was explored. neurolysis was done. Most ulnar nerve of median nerve was scarred at the carpal tunnel. This was released under magnification. The nerve appeared to be intact. Fat 25 cc was harvested from the abdomen through an incision below the umbilicus. This was Processed with puregraft.10 cc ofpurified was Fat was placed around the median nerve. The deep layer was closed with 3-0 vicryl and the skin with 4-0 nylon. The abdomen was closed with 4-0 chromic. Light dressing was applied to abdomen. The hand was placed in a soft dressing with xeroform, fluffs, kerlix and a apryl. There were no complications. Surgical Infection Prevention Bundle Used? No Attestation: Case Date: 10/20/2022 I was present and I participated during the entire procedure (does not need to include opening and closing). CHRISTIAN HAYNES MD 10/20/2022 * Op Note - Daniela Justin MD - 10/20/2022 2:15 PM EDT [facility] [place] Patient Name: Daniela Ruiz : [id number] MR#: [id number] Case Date: 10/20/2022 Surgeon: Surgeon(s) and Role: Panel 1: * Christian Haynes MD - Primary Panel 2: * Daniela Justin MD - Primary * Kathryn Baldwin MD - Resident Preoperative diagnosis: CARPAL TUNNEL SYNDROME Postoperative diagnosis: CARPAL TUNNEL SYNDROME Procedure(s) (LRB): MEDIAN NERVE DECOMPRESSION (CARPAL TUNNEL RELEASE) (WRVU 4.97) (Right) GRAFTING OF AUTOLOGOUS SOFT TISSUE, OTHER, HARVESTED BY DIRECT EXCISION (FAT, DERMIS, OR FASCIA) (WRVU 6.68) (N/A) MEDIAN NERVE DECOMPRESSION (CARPAL TUNNEL RELEASE) MARK (WRVU 4.97) (Right) Anesthesia: General Estimated Blood Loss: Specimens removed during surgery: None Drains: * No LDAs found * Surgical Closure: Primary Closure - skin incision is completely closed without any wires, celina, drains or other devices Disposition: awakened from anesthesia, extubated and taken to the recovery room in a stable condition, having suffered no apparent untoward event. Condition: doing well without problems (Please see the Surgical Encounter Summary for any Implant and Specimen details pertinent to this patient.) Daniela Ruiz is a 31-year-old woman who presents with recurrent right carpal tunnel syndrome following endoscopic carpal tunnel release, with resulting numbness in the anterior web betweenthe ring and middle finger. After discussion of the risks, benefits, and alternatives, she elected to undergo open carpal tunnel release. The patient was seen and interviewed in the preoperative holding area. An updated history and physical was obtained. The operative site was the right wrist, this is marked with [place]. The patient was brought back to the operating by anesthesia. General anesthesia with LMA was induced without complication. She was positioned supine with the arm on an armboard. A tourniquet was applied. The entire arm was circumferentially prepped and draped in the usual sterile fashion. A timeout was undertaken, 2 g of cefazolin were administered intravenously. The arm was exsanguinated, and the tourniquet was raised. We opened the incision with a 15 blade. The skin was anesthetized quarter percent Marcaine with epinephrine. The fine tenotomy scissors was now used to dissect through the subcutaneousfascia until we could identify the median nerve proximal to the carpal tunnel. This was followed distally until we encountered the site of her prior endoscopic release incision. This area was denselyscarred. We released the scar, and then continued to release the overlying transverse carpal ligament through the carpal tunnel into the hand. We then inspected the median nerve and found it to be incomplete continuity. We also saw the thenar branch very clearly. We were satisfied with her decompre ssion but at this point. We proceeded to irrigate the entire wound, the tourniquet was released, meticulous hemostasis was obtained. And we closed in layered fashion. Ended with 3-0 Vicryl's were used for the dermal layer, and the skin was closed with interrupted 4 oh nylons. At the end of the case, all counts were correct. I was present for the entire procedure and served as co- surgeon with Dr. Christian Haynes. Surgical Infection Prevention Bundle Used? N/A Attestation: Case Date: 10/20/2022 I was present and I participated during the entire procedure (does not need to include opening and closing). Daniela Justin MD 10/22/2022 documented in this encounter Plan of Treatment Scheduled Referrals Name Type Priority Associated Diagnoses Order Schedule Referral to Occupational Therapy Outpatient Referral Routine Carpal tunnel syndrome, bilateral Ordered: 10/20/2022 documented as of this encounter Procedures Procedure Name Priority Date/Time Associated Diagnosis Comments Revise Median N/Carpal Tunnel Surg (26889) 10/20/2022 1:43 PM EDT Carpal tunnel syndrome of right wrist Grafting of Autologous Soft Tiss by Direct Excision (10246) 10/20/2022 1:43 PM EDT Carpal tunnel syndrome of right wrist Revise Median N/Carpal Tunnel Surg ([id number]) 10/20/2022 1:43 PM EDT Carpal tunnel syndrome of right wrist documented in this encounter Visit Diagnoses Diagnosis Carpal tunnel syndrome, bilateral Carpal tunnel syndrome Carpal tunnel syndrome of right wrist Carpal tunnel syndrome documented in this encounter Administered Medications Inactive Administered Medications - up to 3 most recent administrations Medication Order MAR Action Action Date Dose Rate Site acetaminophen (Tylenol) tablet 1,000 mg 1,000 mg, Oral, ONCE, 1 dose, On Thu10/20/22 at 1215, Administer with SIP of H2O only. Maximum dose of acetaminophen is 4,000 mg from all sources in 24 hours., Day of Surgery (Day of Procedure), Routine Given 10/20/2022 12:34 PM EDT 1,000 mg BUpivacaine (pf) (Marcaine) (5 mg/mL) 0.5% injection ONCE PRN, Starting on Thu10/20/22 at 1432, Until Thu10/20/22 at 1900, Intra-Operative (Intra-Procedure), Routine Given 10/20/2022 2:32 PM EDT 5 mLs 19- Surgical Site oxyCODONE (Roxicodone) tablet 5 mg 5 mg, Oral, EVERY 4 HOURS PRN, Starting on Thu10/20/22 at 1550, Until Thu10/20/22 at 1900, Pain, Recovery (Recovery-Hospital Unit), Routine Given 10/20/2022 4:16 PM EDT 5 mg documented in this encounter Active and Recently Administered Medications Times are shown in EDT. Scheduled Medication Order 10/18/2022 10/19/2022 10/20/2022 acetaminophen (Tylenol) tablet 1,000 mg (COMPLETED) 1,000 mg, Oral, ONCE, 1 dose, On Thu10/20/22 at 1215, Administer with SIP of H2O only. Maximum dose of acetaminophen is 4,000 mg from all sources in 24 hours., Day of Surgery (Day of Procedure), Routine 1234 (Given - Provid er: Cyndi Lepe RN) PRN Medication Order 10/18/2022 10/19/2022 10/20/2022 BUpivacaine (pf) (Marcaine) (5 mg/mL) 0.5% injection (CANCELED) ONCE PRN, Starting on Thu10/20/22 at 1432, Until Thu10/20/22 at 1900, Intra-Operative (Intra-Procedure), Routine 1432 (Given - Provid er: Christian Haynes MD) oxyCODONE (Roxicodone) tablet 5 mg 5 mg, Oral, EVERY 4 HOURS PRN, Starting on Thu10/20/22 at 1550, Until Thu10/20/22 at 1900, Pain, Recovery (Recovery-Hospital Unit), Routine 1616 (Given - Provid er: Hoang Acevedo RN) documented in this encounter Care Teams Learning Disabilities Teacher Relationship Specialty Start Date End Date Presley Santillan MD [address] [place] [address] PCP - General Internal Medicine 02/10/17 documented as of this encounter
--- OUTSIDE RECORDS SUMMARY | 2024-05-03 07:19 | XMS_ITS | Encounter Summary ---
Author Organization [facility] Address [facility] [place] [address] Care Team Providers Care Manager Electrical Name Role Phone Presley Santillan MD Primary Care Provider [phone] Encounter Details Date Type Department Care Team (Latest Contact Info) Description 05/02/2022 Travel Social History Tobacco Use Types Packs/Day [...] place to sleep or slept in a fpc (including now)? No 04/18/2022 Sex and Gender Information Value Date Recorded Sex Assigned at Not on file Gender Identity Not on file Sexual Orientation Not on file documented as of this encounter Plan of Treatment Not on file documented as of this encounter Visit Diagnoses Not on filedocumented in this encounter Care Teams Manager Electrical Relationship Specialty Start Date End Date Presley Santillan MD [address] [place] [id number] PCP - General Internal Medicine 02/10/17 documented as of this encounter
--- OUTSIDE RECORDS SUMMARY | 2024-05-03 07:19 | XMS_ITS | Encounter Summary ---
Author Organization Formerly [facility] [place] [address] Care Team Providers Care Radiotelegraph Operator Servicer Name Role Phone Presley Santillan MD Primary Care Provider [phone] Reason for Visit * Reason Onset Date Comments Labs Only 09/29/2018 Encounter Details Date Type Department Care Team (Late st Contact Info) Description 09/29/2018 Telephone Hematology/Oncology at [address] [address] Anamaria Lamas RN Labs Only Social History Tobacco Use [...] Telephone Encounter - Anamaria Lamas RN - 09/29/2018 11:03 AM EDT Mailed letter to pt's home requesting she does lab work and to call when she does this.. We called he phone number and left several messages over past week with no response. documented in this encounter Plan of Treatment Not on file documented as of this encounter Visit Diagnoses Not on filedocumented in this encounter Care Teams Radiotelegraph Operator Servicer Relationship Specialty Start Date End Date Presley Santillan MD [address] [place] [address] PCP - General Internal Medicine 02/10/17 documented as of this encounter
--- OUTSIDE RECORDS SUMMARY | 2024-05-03 07:19 | XMS_ITS | Encounter Summary ---
Author Organization [facility] [place] [address] Care Team Providers Care Pulper Tender Name Role Phone Presley Santillan MD Primary Care Provider [phone] Reason for Visit * Reason Onset Date Comments Follow-up 01/05/2019 Encounter Details Date Type Department Care Team (Late st Contact Info) Description 01/05/2019 Telephone Hematology/Oncology at [address] [phone] Anamaria Lamas RN Follow-up Social History Tobacco Use Types Packs/Day Years [...] Telephone Encounter - Anamaria Lamas RN - 01/05/2019 9:30 AM EDT Called pt on her cell phone , left message reminding her to get labs and that we sent her a letter two weeks ago reminding her of this. I asked that she call the clinic when she has gone and we will look for the labs at that time. Dr. Whitfield updated. documented in this encounter Plan of Treatment Not on file documented as of this encounter Visit Diagnoses Not on filedocumented in this encounter Care Teams Pulper Tender Relationship Specialty Start Date End Date Presley Santillan MD [address] [place] [address] PCP - General Internal Medicine 02/10/17 documented as of this encounter
--- OUTSIDE RECORDS SUMMARY | 2024-05-03 07:19 | XMS_ITS | Encounter Summary ---
Author Organization [facility] [place] [address] Care Team Providers Care Manager Surgery Name Role Phone Presley Santillan MD Primary Care Provider Reason for Visit * Reason Onset Date Comments Labs Only 10/22/2017 lab tracking Encounter Details Date Type Department Care Team (Late st Contact Info) Description 10/22/2017 Telephone Hematology/Oncology at [address] [phone] Anamaria Lamas RN Labs Only [...] Telephone Encounter - Anamaria Lamas RN - 10/22/2017 9:09 AM EDT LAB TRACKING Yaneth Gardner [id number] Diagnosis: ITP Labs ordered: every 4 weeks CBC (and PRN if pt wants to see one , she will let us know she went to lab she realizes we may not get back to her for a few days with results) Medications: Dex 40mg x 4 days every 3 weeks completed 04/2017 Rituxan infusions x4 (03/11/17-04/01/17) Assessment: Pt had labs when seeing another provider Plan: labs again in october Results for YANETH GARDNER ( ) as of 10/22/2017 09:10 Ref. Range 08/26/2017 00:00 09/23/2017 00:00 10/07/2017 00:00 WBC Unknown 6.34 7.27 8.71 Hemoglobin Unknown 13.4 13.2 13.5 Hematocrit Unknown 38.6 38.7 39.0 Platelets Unknown 195 201 233 Neutr Abs (ANC) Unknown 3.51 4.34 6.48 Date WBC HGB/HCT PLT ANC PLAN LABS 07/31/17 8.59 12.8/38.0 201k 6.04 Patient has been under the weather. Labs again first week of August. 07/07/17 8.24 12.5/36.7 237k 5.45 Had bruising on knees and elbows [facility] 07/28/18 06/01/17 7.27 12.2/36.4 209k 3.86 Stopped dex [facility] 06/30/16 05/25/17 8.15 12.2/35.5 153k 5.21 Dex 40 mg 05/25-05/28 [facility] 06/1505/04/17 7.77 12.4/36.3 153k 4.74 Dex 40 mg 05/04-05/07 [facility] 05/2504/20/17 10.15 12.6/35.2 175k 5.67 Completed 4 days of dex 04/16/17 [facility] 05/04/17 04/10/17 10.44 12.3/36.1 112k 7.26 4ht cycle dex start 04/13. Prior to vs with Dr Whitfield on 04/2203/30/17 9.57 12.7/36.1 206k 5.04 4th Rituxan due03/31 Labs again on 04/0703/24/17 7.87 12/34.9 120k 5.13 3rd rituxan due 03/25 Labs again 03/31/17 03/16/17 11.79 12.1/34.8 129k 8.18 2nd Rituxan given 03/18 [facility] 03/2403/06/17 11.59 11.8/35.4 166k 9.67 1st rituxan given 03/11 [facility] 03/16 documented in this encounter Plan of Treatment Not on file documented as of this encounter Procedures Procedure Name Priority Date/Time Associated Diagnosis Comments CBC (WITH DIFF) Routine 10/07/2017 documented in this encounter Results * CBC (with Diff) (10/07/2017) White Blood Cell 8.71 Hemoglobin 13.5 Hematocrit 39.0 Platelet 233 Neutrophil Absolute (ANC) - Automated 6.48 Blood specimen (specimen) 10/07/2017 Historical Provider HEMATOLOGY ORDERA BLES documented in this encounter Visit Diagnoses Not on filedocumented in this encounter Care Teams Manager Surgery Relationship Specialty Start Date End Date Presley Santillan MD [address] [place] [address] PCP - General Internal Medicine 02/10/17 documented as of this encounter
--- OUTSIDE RECORDS SUMMARY | 2024-05-03 07:19 | XMS_ITS | Encounter Summary ---
Author Organization [facility] Address [facility] [place] [address] Care Team Providers Care Fountain Manager Name Role Phone Presley Santillan MD Primary Care Provider [phone] Encounter Details Date Type Department Care Team (Latest Contact Info) Description 11/03/2022 Travel Social History Tobacco Use Types Packs/Day [...] place to sleep or slept in a fci (including now)? No 04/18/2022 [facility] IPV Inpatient [...] on filedocumented in this encounter Care Teams Fountain Manager Relationship Specialty Start Date End Date Presley Santillan MD [address] [place] [id number] PCP - General Internal Medicine 02/10/17 documented as of this encounter
--- OUTSIDE RECORDS SUMMARY | 2024-05-03 07:19 | XMS_ITS | Encounter Summary ---
Author Organization [facility] [place] [address] Care Team Providers Care Nuclear Power Reactor Operator Name Role Phone Presley Santillan MD Primary Care Provider Reason for Visit * Reason Onset Date Comments Labs Only 12/02/2017 Encounter Details Date Type Department Care Team (Late st Contact Info) Description 12/02/2017 Telephone Hematology [place] [phone] Kandis Hill I, RN Labs Only Social History Tobacco Use [...] Notes * Telephone Encounter - Kandis Hill I RN - 12/02/2017 8:50 AM EDT LAB TRACKING Yaneth Herrera Jj [id number] Diagnosis: ITP Labs ordered: every 8 weeks CBC (and PRN if pt wants [...] reports she will go for labs again 02/03 Results for YANETH DESOUZA ( ) as of 12/02/2017 08:49 Ref. Range 08/26/2017 00:00 09/23/2017 00:00 10/07/2017 00:00 11/02/2017 00:00 12/01/2017 00:00 WBC Unknown 6.34 7.27 8.71 9.43 7.46 Hemoglobin Unknown 13.4 13.2 13.5 12.3 12.1 Hematocrit Unknown 38.6 38.7 39.0 35.7 35.3 Platelets Unknown 195 201 233 234 222 Neutr Abs (ANC) Unknown 3.51 4.34 6.48 5.87 3.90 Date WBC HGB/HCT PLT ANC PLAN LABS 07/31/17 8.59 12.8/38.0 201k 6.04 Patient has been under the weather. Labs again first week of August. 07/07/17 8.24 12.5/36.7 237k 5.45 Had bruising on knees and elbows [facility] 07/28/18 06/01/17 7.27 12.2/36.4 209k 3.86 Stopped dex [facility] 06/30/16 05/25/17 8.15 12.2/35.5 153k 5.21 Dex 40 mg 05/25-05/28 [facility] 06/1505/04/17 7.77 12.4/36.3 153k 4.74 Dex 40 mg 05/04-05/07 [facility] 05/2504/20/17 10.15 12.6/35.2 175k 5.67 Completed 4 days of dex 04/16/17 [facility] 05/04/17 04/10/17 10.44 12.3/36.1 112k 7.26 4ht [...] on filedocumented in this encounter Care Teams Nuclear Power Reactor Operator Relationship Specialty Start Date End Date Presley Santillan MD [address] [place] [address] PCP - General Internal Medicine 02/10/17 documented as of this encounter
--- OUTSIDE RECORDS SUMMARY | 2024-05-03 07:19 | XMS_ITS | Encounter Summary ---
Author Organization [facility] Address [facility] [place] [address] Care Team Providers Care Business Area Manager Name Role Phone Presley Santillan MD Primary Care Provider [phone] Encounter Details Date Type Department Care Team (Latest Contact Info) Description 05/02/2022 12:00 PM EDT TH Visit (TeleHealth) [place]ology [place] [phone] Samira Oneill MD [facility] [address] [place]Y [place] [address] Bruising; Benign joint hypermobility syndrome Social History Tobacco [...] place to sleep or slept in a long term (including now)? No 04/18/2022 Sex and Gender Information Value Date Recorded Sex Assigned at Not on file Gender Identity Not on file Sexual Orientation Not on file documented as of this encounter Progress Notes * Samira Oneill MD - 05/02/2022 12:00 PM EDT Images from the original note were not included. THROMBOSIS CONSULTATION DATE OF VISIT 05/02/2022 Patient Daniela Ruiz 1990 REFFERAL FROM: ELIGIO Gordon PRIMARY CARE PHYSICIAN Presley Santillan MD REASON FOR FOLLOW UP Review lab test results This patient verbally consents to this video telehealth format and understands that this visit may be billed, similar to a clinic office visit. HISTORY OF THE PRESENT ILLNESS Daniela Ruiz is a 31 y.o. female with ITP, ADHD, fibromyalgia, anxiety, and Raynaud's Phenomenon, who is seen in follow up To review the results of lab tests done to evaluate easy bruisability. Daniela is a 31 yo F with a history of ITP diagnosed in 2017 and treated with IVIG, Dex and Rituximab. She has not followed at [facility] (Dr. Whitfield) since 2018. Daniela is here [...] She denies any black or bloody stools. INTERVAL HISTORY Daniela reports doing well with no new symptoms PAST MEDICAL HISTORY Easy bruisability as above ITP, ADHD, fibromyalgia, anxiety, and Raynaud's Phenomenon OPERATIVE PROCEDURES Numerous colonoscopies for suspicion of IBD. Carpel Tunnel Release b/l Appendectomy recently (since 2018). [place] Teeth Hysterectomy (for heavy mensural bleeding). OBSTETRIC [...] (FLEXERIL) 5 mg Tablet daily as needed. No current facility-administered medications on file prior to visit. ADVERSE DRUG REACTIONS Allergies as of 05/02/2022 - Review Complete 07/18/2019 Allergen Reaction Noted ??? Zofran odt [ondansetron] Other (See Comments) 06/25/2017 ??? [place] Other (See Comments) 02/10/2017 ??? Cis free [...] use. Rarely drinks alcohol. 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 She has 2 step children from a [...] Other Negative except as above PHYSICAL EXAMINATION There were no vitals taken for this visit. Video visit. Limited PE possible. GENERAL: Well-appearing, articulate white female in good spirits LABORATORY STUDIES 11/14/2020: Plt 254 12/18/2020: Plt 235 CBC 12/21/2020: Plt 240 CBC 08/29/2021: Plt 280 CBC 11/26/2021: WBC 7.13 Hgb 13.0 Plt 233 CBC 12/19/2021: Plt 235 Latest Reference Range & Units 04/18/22 10:10 WBC 4.0 - 9.5 x10(3)/mcL 7.4 RBC 4.00 - 5.21 x10(6)/mcL 4.26 Hemoglobin 11.7 - 15.5 g/dL 13.4 Hematocrit 35.7 - 45.8 % 38.7 MCV 82.6 - 94.4 fL 90.8 MCH 27.1 - 32.0 pg 31.5 MCHC 31.7 - 35.0 g/dL 34.6 RDWSD 37.0 - 46.0 fL 40.0 RDWCV 11.5 - 14.1 % 12.0 Platelets 145 - 357 x10(3)/mcL 215 MPV 7.6 - 12.9 fL 10.8 nRBC % Auto % 0.0 nRBC Abs Auto 0.000 - 0.000 x10(3)/mcL 0.000 Neutr Abs (ANC) 1.70 - 6.10 x10(3)/mcL 5.63 Neutrophils % % 75.8 Immature Gran % % 0.10 Lymphocytes % % 18.0 Monocytes % % 4.8 Eosinophils % % 0.8 Basophils % % 0.5 Ellie Gran Abs 0.00 - 0.04 x10(3)/mcL 0.01 Lymphocytes Abs 0.9 - 3.2 x10(3)/mcL 1.3 Monocyte Abs 0.3 - 0.9 x10(3)/mcL 0.4 Eosinophils Abs 0.0 - 0.4 x10(3)/mcL 0.1 Basophils Abs 0.0 - 0.1 x10(3)/mcL 0.0 PT 9.4 - 12.5 sec 11.5 INR 1.0 PTT 25 - 37 sec 34 Fibrinogen 200 - 393 mg/dL 308 Thrombin Time 10 - 17 sec 15 Factor 8 Assay 50 - 150 % 81 vWF Antigen % 92 vWF Activity % activity 77 Col/Epi 90 - 160 sec 112 TSH 0.27 - 4.20 mcIU/mL 1.07 ABORh Type A Pos RADIOGRAPHIC STUDIES I have personally reviewed images from the following studies where available: No relevant studies. IMPRESSION Daniela Ruiz is a 31 y.o. woman with easy bruisability likely on the basis of benign joint hypermobility. She has no laboratory evidence for an underlying bleeding disorder. Her ITP is not active and her thyroid function is normal. PLAN/RECOMMENDATIONS I reviewed the reassuring test results with Daniela and discussed with her that these results further support benign joint hypermobility as the underlying cause of easy bruisability. We reviewed precautions. She takes an SNRI which has mild antiplatelet effects, but on its own doesnot pose a significantly increased bleeding risk and is not contraindicated. We reviewed with her that NSAIDs are also not contraindicated for her but that she may notice increased bruising and should limit their use to not much more than once or twice a week if possible. I recommended that she make sure her diet contains a good source of vitamin C to ensure blood vessel strength by supporting collagen synthesis and vitamin K to support coagulation factor synthesis. We also reviewed skin protection from the sun. She does not require routine hemostatic support. Daniela Ruiz had the opportunity to ask questions and indicated that all her questions were answered to her satisfaction. While I won't plan to see her back routinely, I'll be happy to see her back at any time in the future as appropriate. Samira Oneill MD [facility] documented in this encounter Plan of Treatment Not on file documented as of this encounter Visit Diagnoses Diagnosis Bruising Contusion of unspecified site Benign joint hypermobility syndrome documented in this encounter Care Teams Business Area Manager Relationship Specialty Start Date End Date Presley Santillan MD [address] [place] [id number] PCP - General Internal Medicine 02/10/17 documented as of this encounter
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
--- OUTSIDE RECORDS SUMMARY | 2024-05-03 07:19 | XMS_ITS | Encounter Summary ---
Author Organization [facility] [place] [address] Care Team Providers Care Spare Person Name Role Phone Presley Santillan MD Primary Care Provider [phone] Reason for Visit * Reason Onset Date Comments Follow-up 09/15/2018 Encounter Details Date Type Department Care Team (Late st Contact Info) Description 09/15/2018 Telephone Hematology/Oncology at [address] [address] Nolberto Monreal RN Follow-up Social History Tobacco Use Types [...] Telephone Encounter - Nolberto Monreal RN - 09/15/2018 4:55 PM EDT Called and LM on Pt's cell to return call. She is due for CBC per lab tracking. Will continue to follow. documented in this encounter Plan of Treatment Not on file documented as of this encounter Visit Diagnoses Not on filedocumented in this encounter Care Teams Spare Person Relationship Specialty Start Date End Date Presley Santillan MD [address] [place] [address] PCP - General Internal Medicine 02/10/17 documented as of this encounter
--- OUTSIDE RECORDS SUMMARY | 2024-05-03 07:19 | XMS_ITS | Encounter Summary ---
Author Organization [facility] Address [facility] [place] [address] Care Team Providers Care Greenhouse Transplanter Name Role Phone Presley Santillan MD Primary Care Provider [phone] Encounter Details Date Type Department Care Team (Latest Contact Info) Description 06/27/2022 Travel Social History Tobacco Use Types Packs/Day [...] place to sleep or slept in a long-term (including now)? No 04/18/2022 Sex and Gender Information Value Date Recorded Sex Assigned at Not on file Gender Identity Not on file Sexual Orientation Not on file documented as of this encounter Plan of Treatment Not on file documented as of this encounter Visit Diagnoses Not on filedocumented in this encounter Care Teams Greenhouse Transplanter Relationship Specialty Start Date End Date Presley Santlilan MD [address] [place] [id number] PCP - General Internal Medicine 02/10/17 documented as of this encounter
--- OUTSIDE RECORDS SUMMARY | 2024-05-03 07:19 | XMS_ITS | Encounter Summary ---
Author Organization [facility] [place] [address] Care Team Providers Care Frame Cleaner Name Role Phone Presley Santillan MD Primary Care Provider [phone] Reason for Visit * Reason Onset Date Comments Labs Only 09/21/2018 Reminder to get labs Encounter Details Date Type Department Care Team (Late st Contact Info) Description 09/21/2018 Telephone Hematology/Oncology at [address] [phone] Geovanna Quintero RN Labs Only (Reminder to get labs) Social History Tobacco Use Types Packs/Day [...] Miscellaneous Notes * Telephone Encounter - Geovanna Quintero RN - 09/21/2018 10:35 AM EDT Called patient and left message for her to get labs and to call the clinic so we know to be lookingfor them. documented in this encounter Plan of Treatment Not on file documented as of this encounter Visit Diagnoses Not on filedocumented in this encounter Care Teams Frame Cleaner Relationship Specialty Start Date End Date Presley Santillan MD [address] [place] [address] PCP - General Internal Medicine 02/10/17 documented as of this encounter
--- OUTSIDE RECORDS SUMMARY | 2024-05-03 07:19 | XMS_ITS | Encounter Summary ---
Author Organization [facility] [place] [address] Care Team Providers Care Electric Lineman Name Role Phone Presley Santillan MD Primary Care Provider [phone] Reason for Visit * Reason Onset Date Comments Follow-up 12/20/2018 Encounter Details Date Type Department Care Team (Late st Contact Info) Description 12/20/2018 Telephone Hematology/Oncology at [address] [phone] Anamaria Lamas RN Follow-up Social [...] Telephone Encounter - Anamaria Lamas RN - 12/20/2018 8:52 AM EDT Per pt request letter mailed to pt stating she is due for labs by 12/29/18. CBC lab slip enclosedAntonio Jay look for labs on December 29. documented in this encounter Plan of Treatment Not on file documented as of this encounter Visit Diagnoses Not on filedocumented in this encounter Care Teams Electric Lineman Relationship Specialty Start Date End Date Presley Santillan MD [address] [place] [address] PCP - General Internal Medicine 02/10/17 documented as of this encounter
--- OUTSIDE RECORDS SUMMARY | 2024-05-03 07:19 | XMS_ITS | Encounter Summary ---
Author Organization [facility] Address [facility] [place] [address] Care Team Providers Care Top Cager Name Role Phone Presley Santillan MD Primary Care Provider [phone] Reason for Visit * Reason Comments Follow Up Surgery Encounter Details Date Type Department Care Team (Late st Contact Info) Description 11/03/2022 10:00 AM EDT Office [place] [phone] Jocelyn Padilla SEARCH ENGINE OPTIMIZATION STRATEGIST [facility] [place] [address] Surgery follow-up Social History Tobacco Use Types [...] place to sleep or slept in a fdc (including now)? No 04/18/2022 DH IPV Inpatient [...] as of this encounter Progress Notes * Jocelyn Padilla APRN - 11/03/2022 10:00 AM EDT Plastic Surgery Post Op Note Jocelyn Padilla APRN Date of surgery: 10/20/22 Procedure(s): re-release right carpal tunnel with median nerve exploration and fat grafting (Abdullahi) Complications: None reported HPI: Pt reports that her incision and wrist have been quite sensitive and notes that taking oxycodone did not help with her pain. She reports that she has limited ROM, however she is unsure if this is due to her anxiety and fear, or from the stiffness that she has in her hand/wrist. She notes that her paraesthesias are improving. Examination: Patient is alert, conversant, comfortable, ambulating Incision: CDI, healing well. Sutures removed today. No collection, no erythema, no evidence of cellulitis. Some limitations with ROM Donor site incision intact. Impression: Daniela Ruiz is a 31 y.o. female who was seen today for follow up afterthe above procedure. Please see the operative note for details. Healing as to be expected. Plan: Follow up 3 months. Hand therapy. I, Eloise Saab, have performed the documentation for this encounter in the presence of and acting as a scribe for JOCELYN PADILLA APRN. I performed the services which were documented by the scribe, and I agree with the accuracy of the documentation in this encounter. JOCELYN PADILLA APRN ] documented in this encounter Plan of Treatment Not on file documented as of this encounter Visit Diagnoses Diagnosis Surgery follow-up Follow-up examination, following unspecified surgery documented in this encounter Care Teams Top Cager Relationship Specialty Start Date End Date Presley Santillan MD [address] [place] [address] PCP - General Internal Medicine 02/10/17 documented as of this encounter
--- OUTSIDE RECORDS SUMMARY | 2024-05-03 07:19 | XMS_ITS | Encounter Summary ---
Author Organization [facility] Address [facility] [place] [address] Care Team Providers Care A/C Tech Name Role Phone Presley Santillan MD Primary Care Provider [phone] Encounter Details Date Type Department Care Team (Latest Contact Info) Description 04/18/2022 9:53 AM EDT - 04/18/2022 11:59 PM EDT Hospital Encounter [place] [phone] Easy bruising Discharge Disposition: Home Social History Tobacco Use Types Packs/Day Years [...] place to sleep or slept in a senior living (including now)? No 04/18/2022 Sex and Gender Information Value Date Recorded Sex Assigned at Not on file Gender Identity Not on file Sexual Orientation Not on file documented as of this encounter Medications at Time of Discharge Medication Sig Dispensed Refills Start Date End Date cyclobenzaprine (FLEXERIL) 5 mg Tablet daily as needed. 07/10/2017 buPROPion XL (Wellbutrin XL) 150 mg Tablet Extended Release 24 hr Take 150 mg by mouth every morning. 10/13/2022 methylphenidate (RITALIN) 10 mg Tablet Take 18 mg by mouth 2 times daily. Not sure of dose 10/13/2022 documented as of this encounter Plan of Treatment Not on file documented as of this encounter Procedures Procedure Name Priority Date/Time Associated Diagnosis Comments TYPE AND SCREEN VALIDITY Routine 04/18/2022 10:10 AM EDT HC HEMOGRAM Routine 04/18/2022 10:10 AM EDT Easy bruising HC ABO TYPE Routine 04/18/2022 10:10 AM EDT Easy bruising HEMOGRAM Routine 04/18/2022 10:10 AM EDT Easy bruising DIFFERENTIAL, AUTOMATED Routine 04/18/20 10:10 AM EDT Easy bruising VON WILLEBRAND FACTOR ANTIGEN Routine 04/18/2022 10:10 AM EDT Easy bruising VON WILLEBRAND FACTOR ACTIVITY Routine 04/18/2022 10:10 AM EDT Easy bruising APTT Routine 04/18/2022 10:10 AM EDT Easy bruising THROMBIN TIME Routine 04/18/2022 10:10 AM EDT Easy bruising PROTHROMBIN TIME Routine 04/18/2022 10:1 0 AM EDT Easy bruising PL[place]LET FUNCTION TEST [place] Routine 04/18/2022 10:10 AM EDT Easy bruising FIBRINOGEN Routine 04/18/2022 10:10 AM EDT Easy bruising FACTOR 8 ASSAY Routine 04/18/2022 10:10 AM EDT Easy bruising HC THYROID STIMULATING HORMONE, SERUM Routine 04/18/2022 10:10 AM EDT Easy bruising BLEEDING SCREEN INTERPRETATION Routine 04/18/2022 9:58 AM EDT documented in this encounter Results * Type and Screen Validity (04/18/2022 10:10 AM EDT) Pathologist [facility] T&S only valid at [facility] LABORATORY Comment:This Type and Screen result is only valid at the [facility] Blood 04/18/2022 10:1 0 AM EDT 04/18/2022 10:16 AM EDT Narrative Resulting Agency Comment Spec In Lab Marshar Evelyn DIXON BLOOD BANK LAB ORDER [facility] [place] [address] * Differential, Automated (04/18/2022 10:10 AM EDT) Neutrophil % 75.8 % [facility] Neutrophil Absolute 5.63 1.70 - 6.10 x10(3)/[facility] LABORATORY Lymph % 18.0 % [facility] LABORATORY Lymphocytes Abs 1.3 0.9 - 3.2 x10(3)/[facility] LABORATORY Monocyte % 4.8 % [facility] Monocyte Abs 0.4 0.3 - 0.9 x10(3)/[facility] LABORATORY Eos % 0.8 % [facility] LABORATORY Eosinophils Abs 0.1 0.0 - 0.4 x10(3)/[facility] LABORATORY Basophil % 0.5 % [facility] Baso Absolute 0.0 0.0 - 0.1 x10(3)/[facility] LABORATORY Immature Gran % 0.10 % [facility] Comment: Immature granulocytes(IG's)percentage and absolute count will include metamyelocytes, myelocytes, and promyelocytes. Blood smears from CBCs yielding IG's will be scanned manually for concordance. If this scan disagrees with the automated IG or if promyelocytes are noted, a manual differential will be performed. Immature Gran Absolute 0.01 0.00 - 0.04 x10(3)/[facility] LABORATORY Blood 04/18/2022 10:1 0 AM EDT 04/18/2022 10:32 AM EDT Narrative Resulting Agency Comment Spec In Lab Samer Evelyn DIXON HEMATOLOGY ORDERABLE S [facility] [place] [address] * Hemogram (04/18/2022 10:10 AM EDT) White Blood Cell 7.4 4.0 - 9.5 x10(3)/[facility] LABORATORY Red Blood Cell 4.26 4.00 - 5.21 x10(6)/[facility] LABORATORY Hemoglobin 13.4 11.7 - 15.5 g/dL [facility] Hematocrit 38.7 35.7 - 45.8 % [facility] Mean Cell Volume 90.8 82.6 - 94.4 fL [facility] Mean Cell Hemoglobin 31.5 27.1 - 32.0 pg [facility] Mean Cell Hemoglobin Concentration 34.6 31.7 - 35.0 g/dL [facility] Platelet 215 145 - 357 x10(3)/[facility] LABORATORY RDW Standard Deviation 40.0 37.0 - 46.0 fL [facility] RDW coefficient of variation 12.0 11.5 - 14.1 % [facility] Mean Platelet Volume 10.8 7.6 - 12.9 fL [facility] NRBC% auto 0.0 % [facility] NRBC Absolute 0.000 0.000 - 0.000 x10(3)/[facility] LABORATORY Blood 04/18/2022 10:1 0 AM EDT 04/18/2022 10:32 AM EDT Narrative Resulting Agency Comment Spec In Lab Samer Evelyn DIXON HEMATOLOGY ORDERABLE S Performing Organization Address City/State/[facility] Co de Phone Number [facility] [place] [address] * Platelet function analysis ([facility] (04/18/2022 10:10 AM EDT) Col/Epi 112 90 - 160 sec [facility] Comment: The PFA-100 test result is dependent on platelet function, plasma von Willebrand factor level, platelet number and the hematocrit. The PFA-100 test is initially performed with the Col/Epi cartridge. A normal Col/Epi closure time (<=160 seconds) excludes the presence of a significant platelet function defect and the Col/ADP test is not performed. If the Col/Epi closure time is prolonged (>160 seconds), the Col/ADP test is automatically performed. If the Col/ADP result is normal (<=120 seconds), then drug-induced platelet dysfunction is most likely (e.g., due to aspirin, NSAIDs). Prolongation of both test results (Col/Epi >160 seconds, Col/ADP >120 seconds) may indicate the presence of a hereditary or acquired qualitative platelet disorder, though jail aspirin treatment may sometimes cause a modestly prolonged Col/ADP closure time. Additionally, anemia and thrombocytopenia will result in prolonged closure times for both tests. Once aspirin use, anemia and thrombocytopenia have been excluded, further evaluation to exclude von Willebrand disease and inherited/acquired platelet dysfunction (e.g., due to uremia, platelet storage pool disorders, release defects, Olivier-Soulier disease, and Glanzmann thromboasthenia) should be considered. Blood 04/18/2022 10:1 0 AM EDT 04/18/2022 11:56 AM EDT Narrative Resulting Agency Comment Spec In Lab [facility] HEMATOLOGY ORDERABLE S Performing Organization Address [facility] Co de Phone Number [facility] [place] [address] * Von Willebrand Factor Antigen (04/18/2022 10:10 AM EDT) von Willebrand Factor Antigen 92 % [facility] Comment: ABO blood group has a significant influence on vWF antigen levels in normal individuals. Type O has a range of 42 ? 141%. Type A, B, and AB have a range of 66 - 176%. The presence of Rheumatoid Factor may produce an overestimation of the test results. Blood 04/18/2022 10:1 0 AM EDT 04/18/2022 11:56 AM EDT Narrative Resulting Agency Comment Spec In Lab [facility] HEMATOLOGY ORDERABLE S Performing Organization Address [facility] Co de Phone Number [facility] [place] [address] * Von Willebrand Factor Activity (04/18/2022 10:10 AM EDT) Von Willebrand Factor Assay 77 % activity [facility] Comment: ABO blood group has a significant influence on vWF activity levels in normal individuals. Type O has a range of 40 ? 126%. Type A, B, and AB have a range of 49 - 163%. Blood 04/18/2022 10:1 0 AM EDT 04/18/2022 11:56 AM EDT Narrative Resulting Agency Comment Spec In Lab [facility] HEMATOLOGY ORDERABLE S [facility] [place] [address] * Factor 8 assay (04/18/2022 10:10 AM EDT) [facility] Factor VIII Assay 81 50 - 150 % [facility] Blood 04/18/2022 10:1 0 AM EDT 04/18/2022 11:56 AM EDT Narrative Resulting Agency Comment Spec In Lab Samekaty Rivas DO HEMATOLOGY ORDERABLE S Performing Organization Address City/[facility]/ZIP Co de Phone Number [facility] [place] [address] * Fibrinogen (04/18/2022 10:10 AM EDT) [facility] Fibrinogen 308 200 - 393 mg/dL [facility] Comment: A fibrinogen level >100 mg/dL is adequate for hemostasis in most patients without underlying bleeding disorders. Blood 04/18/2022 10:1 0 AM EDT 04/18/2022 11:56 AM EDT Narrative Resulting Agency Comment Spec In Lab Guille Rivas DO HEMATOLOGY ORDERABLE S Performing Organization Address [facility]/ZIP Co de Phone Number [facility] [place] [address] * Thrombin time (04/18/2022 10:10 AM EDT) [facility] Thrombin Time 15 10 - 17 sec [facility] Comment: Specimen drawn more than one hour prior to testing. Results may not be reliable for heparin monitoring. Result may be falsely low. A prolongation in the thrombin time (>20 seconds) may be indicative of hypofibrinogenemia or dysfibrinogenemia. The thrombin time will be prolonged, often markedly so, by the presence of heparin or direct thrombin inhibitors (argatroban, bivalirudin, dabigatran) in the specimen. Blood 04/18/2022 10:1 0 AM EDT 04/18/2022 11:56 AM EDT Narrative Resulting Agency Comment Spec In Lab Guille Rivas DO HEMATOLOGY ORDERABLE S Performing Organization Address City/[facility]/ZIP Co de Phone Number [facility] [place] [address] * APTT (04/18/2022 10:10 AM EDT) Partial Thromboplastin Time 34 25 - 37 sec [facility] Comment: The PTT is NOT appropriate for heparin monitoring. Use the Anti-Xa level for heparin monitoring (HEP UFH) or LMWH monitoring (HEP LMW). A PTT less than 37 seconds generally indicates adequate hemostasis. Blood 04/18/2022 10:1 0 AM EDT 04/18/2022 11:56 AM EDT Narrative Resulting Agency Comment Spec In Lab Guille Rivas DO HEMATOLOGY ORDERABLE S Performing Organization Address [facility] Co de Phone Number [facility] [place] [address] * Prothrombin Time (04/18/2022 10:10 AM EDT) Prothrombin Time 11.5 9.4 - 12.5 sec [facility] International Normalization Ratio 1.0 [facility] Comment: An INR <2.0 indicates adequate procoagulant activity for hemostasis in most patients without underlying bleeding disorders, though the INR may not adequately reflect hemostatic capacity in patients with liver disease and synthetic impairment. The recommended target INR range for therapeutic anticoagulation is 2.0 ? 3.0 for most applications, though lower and higher ranges may be appropriate depending on clinical circumstances. Blood 04/18/2022 10:1 0 AM EDT 04/18/2022 11:56 AM EDT Narrative Resulting Agency Comment Spec In Lab Guille Rivas DO HEMATOLOGY ORDERABLE S Performing Organization Address City/[facility]/ZIP Co de Phone Number [facility] [place] [address] * TSH (04/18/2022 10:10 AM EDT) Thyroid Stimulating Hormone 1.07 0.27 - 4.20 mcIU/mL [facility] Comment: Reference Interval (mcIU/mL): Females: ??First Trimester: 0.23-3.88 ??Second Trimester: 0.22-3.90 ??Third Trimester: 0.44-4.66 Blood 04/18/2022 10:1 0 AM EDT 04/18/2022 10:32 AM EDT Narrative Resulting Agency Comment Spec In Lab Samira Oneill MD CHEMISTRY ORDERABL ES Performing Organization Address [facility]/ZIP Co de Phone Number [facility] [place] [address] * ABORh Type Manual (04/18/2022 10:10 AM EDT) Expires at [id number] on: 04/21/2022 [facility] ABORH Type A Pos [facility] Blood 04/18/2022 10:1 0 AM EDT 04/18/2022 10:16 AM EDT Narrative Resulting Agency Comment Spec In Lab Samira Oneill MD BLOOD BANK LAB ORD ERABLES Performing Organization Address [facility]/ZIP Co de Phone Number [facility] [place] [address] * Bleeding Screen Report (04/18/2022 9:58 AM EDT) Bleeding Screen Report [id number] ? Location: 3K The signing pathologist has (i) examined the relevant preparation(s) for the specimen(s) and (ii) rendered or confirmed the diagnosis(es). . ?Bleeding Screen DIAGNOSIS No evidence for significant platelet function disorder, coagulation factor deficiency or von Willebrand disease. A significant bleeding disorder is not identified on the basis of these test results. Consider medication effect, vitamin deficiency, collagen vascular, medical (kidney, liver, thyroid) or anatomic etiologies. If bleeding persists and remains unexplained, consideration for platelet function studies may be an appropriate next step. Electronically signed by: ?Pasquale CHRISTENSEN, Marlys Richards Verified: ??04/22/2022 10:07 ??Pathologist Performed at: ??[facility] [place]. [place], [place], [place] ADDITIONAL STUDIES See Epic for laboratory values. Platelet morphology: Normal ABO Type: A _ PFA-100 platelet function studies can only be performed on blood collected on site at the [facility] facility and are not performed when platelet aggregation studies performed concurrently. The PFA-100 Col/ADP is not performed when PFA-100 Col/EPI is normal. CLINICAL INFORMATION 31 y/o female with history of life long extensive easy bruising. No relevant family history. No antiplatelet or anticoagulant medications. [facility] 04/18/2022 9:58 AM EDT Samer Evelyn DIXON HEMATOLOGY ORDERABLE S [facility] [place] [address] documented in this encounter Visit Diagnoses Diagnosis Easy bruising Other symptoms involving skin and integumentary tissues documented in this encounter Care Teams A/C Tech Relationship Specialty Start Date End Date Presley Santillan MD [address] [place] [address] PCP - General Internal Medicine 02/10/17 documented as of this encounter
--- OUTSIDE RECORDS SUMMARY | 2024-05-03 07:19 | XMS_ITS | Encounter Summary ---
Author Organization [facility] Address [facility] [place] [address] Care Team Providers Care Operations Research Group Manager Name Role Phone Presley Santillan MD Primary Care Provider Encounter Details Date Type Department Care Team (Late st Contact Info) Description 07/18/2019 12:30 PM EST - 07/18/2019 3:44 PM EST Hospital En[place] [id number] Marino Smith MD [facility] [place] [address] Discharge Disposition: Home Social History Tobacco Use [...] Sign Reading Time Taken Comments Blood Pressure 110/65 07/18/2019 3:10 PM EST Pulse 86 07/18/2019 2:40 PM EST Temperature 36.7 ??C (98.1 ??F) 07/18/2019 1:06 PM ES T Respiratory Rate 18 07/18/2019 3:10 PM EST Oxygen Saturation 97% 07/18/2019 3:10 PM EST Inhaled Oxygen Concentration - - Weight 79.4 kg (175 lb) 07/18/2019 1:06 PM EST Height 160 cm (5' 3) 07/18/2019 1:06 PM EST Body Mass Index 31 07/18/2019 1:06 PM EST documented in this encounter Discharge Instructions * Attachments The following attachments cannot be sent through Care Everywhere. * Colonoscopy: Post-op (Tajik) documented in this encounter Medications at Time of Discharge Medication Sig Dispensed Refills Start Date End Date cyclobenzaprine (FLEXERIL) 5 mg Tablet daily as needed. 07/10/2017 Psyllium Seed-Sucrose (0) Powder Take by mouth. 04/18/2022 albuterol (PROVENTIL) 2.5 mg /3 mL (0.083 %) Solution for Nebulization 07/10/2017 04/18/2022 dicyclomine (BENTYL) 10 mg CapsuleIndications:Irri table bowel syndrome with diarrhea,Abdominal pain, generalized Take 1 capsule by mouth 4 times daily. 120 capsule 5 07/13/2017 04/18/2022 SUMAtriptan (IMITREX) 100 mg Tablet Take 100 mg by mouth as needed for Migraine. 04/18/2022 documented as of this encounter H&P Notes * Marino Smith MD - 07/18/2019 1:56 PM EST Patient Name: Daniela Gardner Patient Age: 28 y.o. Birthdate: 1990 Admit date: 07/18/2019 Attending Physician: Marino Smith MD Gastroenterology & Hepatology Pre-Procedure History and Physical Planned Procedure: Colonoscopy: Indication: worsening diarrhea and abnormal rectal exam. Patient Active Problem List Diagnosis Code ??? Acute ITP D69.3 ??? Irritable bowel syndrome with both constipation and diarrhea K58.2 Medications: Reviewed in EDH Allergies Allergen Reactions ??? Zofran Odt [Ondansetron] Other (See Comments) MAKES ME RESTLESS ??? [place] Other (See Comments) Abdominal pain ??? Cis Free Text Allergy environmental. CIS - Allergic Rhinitis ??? Gluten Other (See Comments) Abdominal pain/intestinal pain ??? Milk Containing Products Other (See Comments) Abdominal/intestinal pain ??? Peanut Other (See Comments) Abdominal pain ??? Yeast Other (See Comments) Abdominal/intestinal pain ??? Cis Free Text Allergy sugars. CIS - Sensitive Social History/Family History: Reviewed in EDH. No changes Exam: Most Recent Vitals: 07/18/19 1306 BP: 118/72 Pulse: 93 Resp: 18 Temp: 36.7 ??C (98.1 ??F) SpO2: 100% GEN: NAD, AAOX3 HEENT: NC/AT dryMM, anicteric Chest: CTAB Heart: RRR, nl s1, s2 Abdomen: normal bowel sounds, soft, non tender Assessment and Plan: Proceed with Colonoscopy: ASA Grade: ASA 2 - Patient with mild systemic disease with no functional limitations Mallampati: I (soft palate, uvula, fauces, tonsillar pillars visible) Sedation plan: IV Conscious Sedation Risks and benefits of the procedure were discussed with the patient. Risks discussed including bleeding, infection, reaction to anesthesia, perforation or other intraabdominal trauma, pancreatitis (if applicable), missing a cancer (if applicable) and/or other unforseen complication. Informed Consent signed by patient (or signs and displays sales representative). documented in this encounter Plan of Treatment Not on file documented as of this encounter Procedures Procedure Name Priority Date/Time Associated Diagnosis Comments SPECIMEN TO PATHOLOGY Routine 07/18/2019 2:44 PM EST SURGICAL PATHOLOGY REPORT Routine 07/18/2019 2:41 PM EST COLONOSCOPY Routine 07/18/2019 2:20 PM EST Colonoscopy, Biopsy ([id number]) 07/18/2019 2:19 PM EST colo documented in this encounter Results * Specimen to Pathology (07/18/2019 2:44 PM EST) AP Specimen 07/18/2019 2:44 PM EST 07/18/2019 2:44 PM EST Narrative [facility] - 07/18/2019 2:44 PM EST Specimen requisition ordered. ??Separate Pathology report to follow Marino Smith MD PATHOLOGY/CYTOLOG Y ORDERABLES [facility] [place] [address] * Surgical Pathology Report (07/18/2019 2:41 PM EST) Final Diagnosis [id number] ? Location: 4T; EA10; A The signing pathologist has (i) examined the relevant preparation(s) for the specimen(s) and (ii) rendered or confirmed the diagnosis(es). . ?Surgical Pathology DIAGNOSIS Random colon, biopsy: Colonic mucosa within normal limits. CR-PX Electronically signed by: ??Tati Bunch MD Verified: ??07/22/2019 ?Pathologist Performed at: ??-[facility] Dept. of Pathology, [place], [place] CLINICAL INFORMATION Specimen Submitted: A - Random colon biopsies non-targeted Clinical History and Diagnosis: Chronic diarrhea SPECIMEN PROCESSING A - Labeled/Fixativ e: Random colon biopsies non-targeted, formalin. Quantity/Size: Six, averaging 0.3 cm. Tissue Description: Soft, pink tissues. Sections/Proces sing: Submitted en toto ??in 2 cassettes labeled A1-A2. ??ejr 07/22/2019 9:06 AM EST [facility] GI Biopsy 07/18/2019 2:41 PM EST 07/18/2019 2:41 PM EST Marino Smith MD PATHOLOGY/CYTOLOG Y ORDERABLES [facility] [place] [address] * COLONOSCOPY (07/18/2019 2:20 PM EST) COLONOSCOPY [facility] Endoscopy ___ Procedure Date: 07/18/2019 2:20 PM ? Patient Name: Daniela Gardner ? Date of : 1990 ? Age: 28 ? Order #: [id number] ? Instrument Name: [id number] ? ___ Procedure: ? Colonoscopy Indications: ? Chronic diarrhea, Abnormal rectal exam Patient Profile: ? This is a 28 year old female. Refer ? to note in patient chart for ? documentation of history and ? physical. Last Colonoscopy: 2017. Providers: ? Marino Smith MD, Mari Milner ? HESHAM Lyn, Migdalia Cintron Referring : ?Jessica Mohamud Medicines: ? Midazolam 5 mg IV, Fentanyl 250 ? micrograms IV, Diphenhydramine 50 mg ? IV Complications: ? No immediate complications. ___ Procedure: ? Pre-Anesthesia Assessment: ? - Prior to the procedure, a History ? and Physical was performed, and ? patient medications and allergies ? were reviewed. The patient's ? tolerance of previous anesthesia was ? also reviewed. The risks and benefits ? of the procedure and the sedation ? options and risks were discussed with ? the patient. All questions were ? answered, and informed consent was ? obtained. Prior Anticoagulants: The ? patient has taken no previous ? anticoagulant or antiplatelet agents. ? ASA Grade Assessment: II - A patient ? with mild systemic disease. After ? reviewing the risks and benefits, the ? patient was deemed in satisfactory ? condition to undergo the procedure. ? The procedure, indications, benefits, ? risks and alternatives were explained ? to the patient. Specifically ? discussed were potential ? complications including, but not ? limited to, bleeding, perforation, ? infection, missing a cancer, and ? adverse medication reactions. The ? patient was placed in the left ? lateral decubitus position, and a ? digital rectal exam was performed. ? The Colonoscope was inserted in the ? anus and under direct visualization, ? advanced to 15 cm into the ileum. ? Careful inspection was made as the ? colonoscope was withdrawn. The ? colonoscopy was performed without ? difficulty. The patient tolerated the ? procedure well. The terminal ileum, ? ileocecal valve, appendiceal orifice, ? and rectum were photographed. The ? quality of the bowel preparation was ? evaluated using the BBPS ([place] ? Bowel Preparation Scale) with scores ? of: Right Colon = 3, Transverse Colon ? = 3 and Left Colon = 3 (entire mucosa ? seen well with no residual staining, ? small fragments of stool or opaque ? liquid). The total BBPS score equals ? 9. The entire colon was well ? visualized. Scope withdrawal time was ? 8 minutes. ? Findings: ? The perianal and digital rectal examinations were ? normal. Pertinent negatives include no palpable ? rectal lesions. ? The colon (entire examined portion) appeared normal. ? The terminal ileum appeared normal. ? The retroflexed view of the distal rectum and anal ? verge was normal and showed no anal or rectal ? abnormalities. ? Biopsies for histology were taken with a cold forceps ? from the ascending colon, transverse colon, ? descending colon and sigmoid colon for evaluation of ? microscopic colitis. ? Moderate Sedation: ? Moderate (conscious) sedation was administered by the ? endoscopy nurse and supervised by the endoscopist. ? The patient's oxygen saturation, heart rate, blood ? pressure and response to care were monitored. ? I was present during the intraservice time as ? documented by the sedation RN. Impression: ?- Normal digital rectal exam. There ? is no palpable mass on VILLA. ? - The entire examined colon is normal. ? - The examined portion of the ileum ? was normal. ? - The distal rectum and anal verge ? are normal on retroflexion view. ? - Biopsies were taken with a cold ? forceps from the ascending colon, ? transverse colon, descending colon ? and sigmoid colon for evaluation of ? microscopic colitis. Recommendation: ?- Use fiber, for example Citrucel, ? Fibercon, Konsyl or Metamucil. ? Attending Participation: ? I personally performed the entire procedure. I was ? present during the intraservice time as documented by ? the sedation RN. ? Dr. Dima Smith __ Marino Smith MD 07/18/2019 3:04:26 PM Number of Addenda: 0 Note Initiated On: 07/18/2019 2:20 PM PROVATION 07/18/2019 2:20 PM EST Jessica Mohamud [employer] SURGICAL ORDERABLES PROVATION documented in this encounter Visit Diagnoses Not on filedocumented in this encounter Administered Medications Inactive Administered Medications - up to 3 most recent administrations Medication Order MAR Action Action Date Dose Rate Site lactated ringers infusion 100 mL/hr, Intravenous, CONTINUOUS, Starting on Thu07/18/19 at 1315, Until Thu07/18/19 at 1522, Endoscopy (Day of Procedure) New Bag 07/18/2019 1:15 PM EST 100 mL/hr 100 mL/hr documented in this encounter Active and Recently Administered Medications Times are shown in EST. Continuous Medication Order 07/16/2019 07/17/2019 07/18/2019 lactated ringers infusion (CANCELED) 100 mL/hr, Intravenous, CONTINUOUS, Starting on Thu07/18/19 at 1315, Until Thu07/18/19 at 1522, Endoscopy (Day of Procedure) 1315 (New Bag - Prov ider: Leo Whitley RN) PRN Medication Order 07/16/2019 07/17/2019 07/18/2019 diphenhydrAMINE (BENADRYL) injection (CANCELED) ONCE PRN, Starting on Thu07/18/19 at 1427, Until Thu07/18/19 at 1744, Intra-Operative (Intra-Procedure), Routine 1427 (Given - Provid er: Mari Lyn RN)1432 (Given - Provider: Mari Lyn RN) fentaNYL 50 mcg/mL multi-dose injection (CANCELED) ONCE PRN, Starting on Thu07/18/19 at 1422, Until Thu07/18/19 at 1744, Intra-Operative (Intra-Procedure), Routine 1422 (Given - Provid er: Mari Lyn RN)1425 (Given - Provider: Mari Lyn RN)1430 (Given - Provider: Mari Lyn RN)1433 (Given - Provider: Mari Lyn, HESHAM)1439 (Given - Provider: Mari Lyn, HESHAM) midazolam (PF) (VERSED) multi-dose injection (CANCELED) ONCE PRN, Starting on Thu07/18/19 at 1422, Until 07/18/19 at 1744, Intra-Operative (Intra-Procedure), Routine 1422 (Given - Provid er: Mari Lyn RN)1425 (Given - Provider: Mari Lyn RN)1430 (Given - Provider: Mari Lyn RN)1433 (Given - Provider: Mari Lyn RN)1439 (Given - Provider: Mari Lyn RN) documented in this encounter Care Teams Operations Research Group Manager Relationship Specialty Start Date End Date Presley Santillan MD [address] [place] [address] PCP - General Internal Medicine 02/10/17 documented as of this encounter
--- OUTSIDE RECORDS SUMMARY | 2024-05-03 07:19 | XMS_ITS | Encounter Summary ---
Author Organization [facility] Address [facility] [place] [address] Care Team Providers Care Sales Hunter Name Role Phone Presley Santillan MD Primary Care Provider Reason for Visit * Consultation (Routine) - Closed Specialty Diagnoses / Procedures Referred By Daryl sargent Referred To Contact Plastic Surgery Diagnoses Bilateral carpal tunnel syndrome bilateral carpal tunnel syndrome- for PNF clinic Yovani Negro MD [address] [place] [address] [facility] Plastic Surg [address] [place] [address] Referral ID Status Reason Start Date Expiration Date Visits Re quested Visits Authorized [id number] Closed 04/29/2022 04/29/2023 1 1 Encounter Details Date Type Department Care Team (Late st Contact Info) Description 06/27/2022 1:45 PM EST Office Visit [place] [address] Christian Haynes MD [facility] [place] [address] Carpal tunnel syndrome, bilateral Social History Tobacco Use Types Packs/Day Years [...] Sign Reading Time Taken Comments Blood Pressure - - Pulse - - Temperature - - Respiratory Rate - - Oxygen Saturation - - Inhaled Oxygen Concentration - - Weight 64.4 kg (142 lb) 06/27/2022 1:45 PM EST Height 160 cm (5' 3) 06/27/2022 1:45 PM EST Body Mass Index 25.15 06/27/2022 1:45 PM EST documented in this encounter Patient Instructions * Patient Instructions* Maria Isabel Younger CCMA - 06/27/2022 1:45 PM EST Preoperative Instructions You have been scheduled to have plastic surgery. The instructions below are specific to your procedure. Two Weeks prior to Surgery Do not take any Aspirin or aspirin containing products for the 2 weeks leading up to surgery. You may resume taking 48 hours after surgery. Do not take medications containing Ibuprofen. Do not take any anti-steroidal's such as Advil, Aleve, Celebrex, Daypro, Indocin, Midol, Motrin, Naproxen, Nuprinand Toradol. These medications increase your risk of bleeding. You may resume taking any of these medications 48 hours after surgery. Stop Vitamin E, Garlic supplements, Ginseng, Fish Oil tablets, Ginkgo and [place]'s Wort and any other herbals. You may resume taking 48 hours after surgery. If you need medication for pain, you may take Tylenol or extra strength Tylenol during this two week period. Medication Specific Instructions n/a One Week prior to Surgery Please call if you feel ill, have cold or fever, have a rash or breaks in the skin near your surgical site. Stay hydrated. Avoid alcohol and recreational drugs Three Days before Surgery Do not shave near your surgical site One Day before Surgery Hand Surgery - Scrub your hand with an antibacterial soap for several minutes the night before and morning of surgery. Trim your fingernails and scrub them with a nail brush. DO NOT wear any rings, nail jordanian or artifical nails. The Same Day Surgery Team will call you the business day before your surgery to give you instructions specific to your procedure and your surgical time. Generally, you will be asked not to eat any solids after midnight. You are allowed clear liquids (water, janes sol, apple juice, black coffee andplain tea) until 2 hours prior to your surgery. Day of Surgery A local [place] truck driver is required at time of discharge. If you are a Same Day procedure and do not have a driveryour surgery will be canceled. DO NOT wear any jewelry, makeup or artificial nails the day of surgery. DO NOT apply any lotions, powders or deodorants on or near the surgical site the day of surgery. Do wear comfortable, loose fitting clothes. Anesthesia will meet with you the morning of surgery. They will perform an assessment and review your history with you. Contact Information: During regular office hours (Thursday- Thursday, non-holiday 8:00 am- 5:00 pm) For an appointment or insurance questions [phone] For questions pertaining to your surgical date [phone] For nursing related questions [phone] On weekends, holidays or after office hours: Call [phone] and ask the core blower operator to page the Plastic Surgery Resident cut in station operator. documented in this encounter Progress Notes * Christian Haynes MD - 06/27/2022 1:45 PM EST Plastic Surgery Consultation Note (Peripheral Nerve Clinic) Provider(s): Christian Haynes/Daniela Justin M.D. CC: S/p bilateral carpal tunnel releases HPI: Daniela Ruiz is a 31 y.o. female who presents to [facility] to discuss her concerns for ongoing issues with both her hands s/p endoscopic bilateral carpal tunnel releases that she underwent back in November with Dr. Negro. Post surgery she continues to have ongoing bothersome symptoms and notes that her right wrist is most problematic. She expresses that both of her hands are painfuland she continues to have reduced sensation at the tips of her fingers. Post surgery she thought she was recovering well in regards to her left wrist however, after her healing she continued to have index finger numbness and expresses that her right hand has had a host of problems post surgery. 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 She is here to understand her options. 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 Past Surgical History: Procedure Laterality Date ??? PRO COLONOSCOPY, BIOPSY N/A 07/18/2019 COLONOSCOPY FLEXIBLE, WITH BX (WRVU 3.66) performed by Marino Smith MD at [facility] ENDOSCOPY ??? PRO COLONOSCOPY, DIAGNOSTIC N/A 06/25/2017 COLONOSCOPY, DIAGNOSTIC performed by Marino Smith MD at [facility] ENDOSCOPY ??? PRO UPPER GI ENDOSCOPY, DIAGNOSTIC N/A 06/25/2017 EGD, UPPER GI ENDOSCOPY performed by Marino Smith MD at [facility] ENDOSCOPY Social History Socioeconomic History ??? Marital status: Single Spouse name: Not on file ??? Number of children: Not on file ??? Years of education: Not on file ??? Highest education level: Not on file Occupational History ??? Not on file Tobacco Use ??? Smoking status: Former Years: 1.00 Types: Cigarettes Quit date: 02/17/2011 Years since quittin.3 ??? Smokeless tobacco: Never ??? Tobacco comments: quit years ago Substance and Sexual Activity ??? Alcohol use: Yes Comment: rarely ever ??? Drug use: Yes Comment: PRN valium ??? Sexual activity: Yes [...] Unstable Housing in the Last Year: No Allergies Allergen Reactions ??? Zofran Odt [Ondansetron] Other (See Comments) MAKES ME RESTLESS ??? [place] Other (See Comments) Abdominal pain ??? Cis Free Text Allergy environmental. CIS - Allergic Rhinitis ??? Gluten Other (See Comments) Abdominal pain/intestinal pain ??? Milk Containing Products Other (See Comments) Abdominal/intestinal pain ??? Peanut Other (See Comments) Abdominal pain ??? Yeast Other (See Comments) Abdominal/intestinal pain ??? Cis Free Text Allergy sugars. CIS - Sensitive Current Outpatient Medications on File Prior to [...] facility-administered medications on file prior to visit. Examination: There were no vitals taken for this visit. Constitutional: No acute distress Well healed transverse scars bialterally No thenar atrophy bilaterally 5/5 thumb abduction bilaterally DS 5/5 + compression on the left +tinels in the left phalanes bilaterally EMG 04/05/22 Right median,ulnar, and median sensory were all normal. However, bilateral median palmar study were abnormal with difference in peak latency. Impression: Daniela Ruiz 31 y.o. female patient s/p endoscopic bilateral carpal tunnel releases continues to have residual paraesthesia and worsening of symptoms bilaterally, right worse then left. Discussed with patient that we recommend proceeding with revision on the right for now with nerve exploration possible repair and fat grafting- fat will be harvested from abdomen area. Post surgery she will need at least 2 weeks for recovery. Surgical Grid Dr Haynes Duration: 2 hours Timeframe: next available Coordinated with Dr. Justin (both providers will proceed at the same time.) Procedure: re release carpal tunnel with median nerve exploration, nerve repair and fat grafting CPT: 02421,63579, 49959 Surgical site: right Side: wrist Anesthesia: General Follow up: 14-21 Days THHF: Y/N: no PAT: no Implants needed: yes axogen graft OT needed at post op visit: no Plan: Proceed with releasing on the right, nerve exploration,repair and fat grafting. Follow up in 14-21 days. INanci, have performed the documentation for this encounter in the presence of and acting as a scribe for CHRISTIAN HAYNES MD. documented in this encounter Plan of Treatment Not on file documented as of this encounter Visit Diagnoses Diagnosis Carpal tunnel syndrome, bilateral Carpal tunnel syndrome documented in this encounter Care Teams Sales Hunter Relationship Specialty Start Date End Date Presley Santillan MD [address] [place] [address] PCP - General Internal Medicine 02/10/17 documented as of this encounter
--- OUTSIDE RECORDS SUMMARY | 2024-05-03 07:19 | XMS_ITS | Encounter Summary ---
Author Organization [facility] [place] [address] Care Team Providers Care Form Grader Operator Name Role Phone Presley Santillan MD Primary Care Provider [phone] Encounter Details Date Type Department Care Team (Late st Contact Info) Description 06/27/2022 2:00 PM EST Office [place] [address] Daniela Justin MD [facility] [place] [address] Carpal tunnel syndrome, bilateral Social History Tobacco [...] place to sleep or slept in a assisted (including now)? No 04/18/2022 Sex and Gender Information Value Date Recorded Sex Assigned at Not on file Gender Identity Not on file Sexual Orientation Not on file documented as of this encounter Progress Notes * Daniela Justin MD - 06/27/2022 2:00 PM EST This patient was seen with Dr. Christian Abdullahi, please see his notes for further details. documented in this encounter Plan of Treatment Not on file documented as of this encounter Visit Diagnoses Diagnosis Carpal tunnel syndrome, bilateral Carpal tunnel syndrome documented in this encounter Care Teams Form Grader Operator Relationship Specialty Start Date End Date Presley Santillan MD [address] [place] [address] PCP - General Internal Medicine 02/10/17 documented as of this encounter
--- OUTSIDE RECORDS SUMMARY | 2024-05-03 07:19 | XMS_ITS | Encounter Summary ---
Author Organization [facility] Address [facility] [place] [address] Care Team Providers Care University Relations Vice President Name Role Phone Presley Santillan MD Primary Care Provider Reason for Referral * Occupational Therapy (Routine) - Closed Specialty Diagnoses / Procedures Referred By Daryl sargent Referred To Contact Occupational Therapy Diagnoses Carpal tunnel syndrome, bilateral Vini Greene PA [facility] [address] PLASTIC [place] [address] [facility] [address] [place] [address] Referral ID Status Reason Start Date Expiration Date V isits Requested Visits Authorized [id number] Closed Evaluate and Treat 10/20/2022 10/20/2023 30 30 Reason for Visit * Auth/Cert (Routine) Specialty Diagnoses / Procedures Referred By Daryl sargent Referred To Contact Diagnoses CARPAL TUNNEL SYNDROME [...] RELEASE) MARK (WRVU 4.97) Christian Haynes MD [facility] [place]LASTIC [place] [address] [facility] Referral ID Status Reason Start Date Expiration Date Visits Re quested Visits Authorized [id number] 1 1 Encounter Details Date Type Department Care Team (Latest Contact Info) Description 10/20/2022 11:29 AM EDT - 10/20/2022 5:00 PM EDT Hospital Encounter Outpatient [place] [address] Christian Haynes MD [facility] PLASTIC [place] [address] Carpal tunnel syndrome, bilateral Discharge Disposition: Home Social History Tobacco Use [...] place to sleep or slept in a custodial (including now)? No 04/18/2022 DH IPV Inpatient [...] Sign Reading Time Taken Comments Blood Pressure 106/85 10/20/2022 4:30 PM EDT Pulse 56 10/20/2022 4:40 PM EDT Temperature 36.2 ??C (97.2 ??F) 10/20/2022 3:51 PM ED T Respiratory Rate 16 10/20/2022 4:30 PM EDT Oxygen Saturation 99% 10/20/2022 4:40 PM EDT Inhaled Oxygen Concentration - - [...] closest emergency room or call the hospital 411 directory assistance operator at [phone] and ask for physician induction heating equipment setter covering for your physician. Questions or problems after 5pm or on a weekend: Call the [facility] 411 directory assistance operator at and ask for the physician induction heating equipment setter covering for your doctor. At 1215pm you [...] scheduling, please contact our administrative offices at [phone] Future Appointments Date Time Provider Department Center 11/03/2022 1:40 PM Kandi Bal APRN [facility] For clinical questions, please call our nurses at [phone] Both offices are open Thursday thru Thursday 8a - 5p. With emergencies after hours, call the hospital 411 directory assistance operator at [phone] and ask for the Plastic Surgery Resident induction heating equipment setter. documented in this encounter Medications at Time [...] 3.66) performed by Marino Smith MD at [facility] ENDOSCOPY ??? PRO COLONOSCOPY, DIAGNOSTIC N/A 06/25/2017 COLONOSCOPY, DIAGNOSTIC performed by Marino Smith MD at [facility] ENDOSCOPY ??? PRO UPPER GI ENDOSCOPY, DIAGNOSTIC N/A 06/25/2017 EGD, UPPER GI ENDOSCOPY performed by Marino Smith MD at [facility] ENDOSCOPY Allergies Allergen Reactions ??? Zofran Odt [Ondansetron] Other (See Comments) MAKES ME RESTLESS ??? [place] Other (See Comments) Abdominal pain ??? Cis [...] Haynes MD - 10/20/2022 2:15 PM EDT [facility] Operative Note Patient Name: Daniela Ruiz : [id number] MR#: [id number] Case Date: 10/20/2022 Surgeon: Surgeon(s) and Role: [...] (N/A) MEDIAN NERVE DECOMPRESSION (CARPAL TUNNEL RELEASE) AMRK (WRVU 4.97) (Right) Neurolysis of median nerve [...] Justin MD - 10/20/2022 2:15 PM EDT [facility] Operative Note Patient Name: Daniela Ruiz : [id number] MR#: [id number] Case Date: 10/20/2022 Surgeon: Surgeon(s) and Role: [...] right wrist, this is marked with green pitka's point. The patient was brought back to the [...] Diagnosis Comments Revise Median N/Carpal Tunnel Surg ([id number]) 10/20/2022 1:43 PM EDT Carpal tunnel syndrome of right wrist Grafting of Autologous Soft Tiss by Direct Excision ([id number]) 10/20/2022 1:43 PM EDT Carpal tunnel syndrome of right wrist Revise Median N/Carpal Tunnel Surg ([id number]) 10/20/2022 1:43 PM EDT Carpal tunnel syndrome [...] Given 10/20/2022 12:34 PM EDT 1,000 mg oxyCODONE (Roxicodone) tablet 5 mg 5 mg, [...] RN) documented in this encounter Care Teams University Relations Vice President Relationship Specialty Start Date End Date Presley Santillan MD [address] [place] [address] PCP - General Internal Medicine 02/10/17 documented as of this encounter
--- OUTSIDE RECORDS SUMMARY | 2024-05-03 07:19 | XMS_ITS | Encounter Summary ---
Author Organization [facility] Address [facility] [place] [address] Care Team Providers Care Compotype Operator Name Role Phone Presley Santillan MD Primary Care Provider [phone] Encounter Details Date Type Department Care Team (Late st Contact Info) Description 07/18/2019 1:45 PM EST - 07/18/2019 2:30 PM EST [place] [id number] Marino Smith MD [facility] [place] [address] COLONOSCOPY FLEXIBLE, WITH BX (WRVU 3.56) Social History Tobacco Use Types Packs/Day Years [...] Sign Reading Time Taken Comments Blood Pressure 108/69 07/18/2019 2:30 PM EST Pulse 94 07/18/2019 2:30 PM EST Temperature 36.7 ??C (98.1 ??F) 07/18/2019 1:06 PM ES T Respiratory Rate 18 07/18/2019 2:30 PM EST Oxygen Saturation 99% 07/18/2019 2:30 PM EST Inhaled Oxygen Concentration - - Weight 79.4 kg (175 lb) 07/18/2019 1:06 PM EST Height 160 cm (5' 3) 07/18/2019 1:06 PM EST Body Mass Index 31 07/18/2019 1:06 PM EST documented in this encounter Discharge Instructions * Attachments The following attachments cannot be sent through Care Everywhere. * Colonoscopy: Post-op (Bengali) documented in this encounter Medications at Time [...] Other (See Comments) MAKES ME RESTLESS ??? [place] Other (See Comments) Abdominal pain ??? Cis [...] complication. Informed Consent signed by patient (or player services representative). documented in this encounter Plan of Treatment Not on file documented as of this encounter Procedures Procedure Name Priority Date/Time Associated Diagnosis Comments SPECIMEN TO PATHOLOGY Routine 07/18/2019 2:44 PM EST SURGICAL PATHOLOGY REPORT Routine 07/18/2019 2:41 PM EST COLONOSCOPY Routine 07/18/2019 2:20 PM EST Colonoscopy, Biopsy ([id number]) 07/18/2019 2:19 PM EST colo documented in this encounter Results * Specimen to Pathology (07/18/2019 2:44 PM EST) AP Specimen 07/18/2019 2:44 PM EST 07/18/2019 2:44 PM EST Narrative [facility] - 07/18/2019 2:44 PM EST Specimen requisition ordered. ??Separate Pathology report to follow Marino Smith MD PATHOLOGY/CYTOLOG Y ORDERABLES [facility] [place] [address] * Surgical Pathology Report (07/18/2019 2:41 PM EST) Final Diagnosis [id number] ? Location: 4T; EA10; A The signing pathologist has (i) examined the relevant preparation(s) for the specimen(s) and (ii) rendered or confirmed the diagnosis(es). . ?Surgical Pathology DIAGNOSIS Random colon, biopsy: Colonic mucosa within normal limits. CR-PX Electronically signed by: ??Tati Bunch MD Verified: ??07/22/2019 ?Pathologist Performed at: ??[facility] [place] [place], [place], [place] CLINICAL INFORMATION Specimen Submitted: A - Random colon biopsies non-targeted Clinical History and Diagnosis: Chronic diarrhea SPECIMEN PROCESSING A - Labeled/Fixativ e: Random colon biopsies non-targeted, formalin. Quantity/Size: Six, averaging 0.3 cm. Tissue Description: Soft, pink tissues. Sections/Proces sing: Submitted en toto ??in 2 cassettes labeled A1-A2. ??ejr 07/22/2019 9:06 AM EST [facility] GI Biopsy 07/18/2019 2:41 PM EST 07/18/2019 2:41 PM EST Marino Smith MD PATHOLOGY/CYTOLOG Y ORDERABLES [facility] [place] [address] * COLONOSCOPY (07/18/2019 2:20 PM EST) COLONOSCOPY [facility] Endoscopy ___ Procedure Date: 07/18/2019 2:20 PM ? Patient Name: Daniela Gardner ? Date of : 1990 ? Age: 28 ? Order #: [id number] ? Instrument Name: [id number] ? ___ Procedure: ? Colonoscopy Indications: ? Chronic diarrhea, Abnormal rectal exam Patient Profile: ? This is a 28 year old female. Refer ? to note in patient chart for ? documentation of history and ? physical. Last Colonoscopy: 2017. Providers: ? Marino Smith MD, Mari Milner ? HESHAM Lyn, Migadlia Cintron Referring : ?Jessica Mohamud Medicines: ? [...] preparation was ? evaluated using the BBPS (Coleman ? Bowel Preparation Scale) with scores ? [...] PROVATION 07/18/2019 2:20 PM EST Jessica Mohamud TIN STACKER GENERAL SURGICAL ORDERABLES PROVATION documented in this encounter Visit Diagnoses Not on filedocumented in this encounter Administered Medications Inactive Administered Medications - up to 3 most recent administrations Medication Order MAR Action Action Date Dose Rate Site diphenhydrAMINE (BENADRYL) injection ONCE PRN, Starting on Thu07/18/19 at 1427, Until Thu07/18/19 at 1744, Intra-Operative (Intra-Procedure), Routine Given 07/18/2019 2:32 PM EST 25 mg Right Arm Given 07/18/2019 2:27 PM EST 25 mg Ri ght Arm fentaNYL 50 mcg/mL multi-dose injection ONCE PRN, Starting on 07/18/19 at 1422, Until Thu07/18/19 at 1744, Intra-Operative (Intra-Procedure), Routine Given 07/18/2019 2:39 PM EST 50 mcg Right Arm Given 07/18/2019 2:33 PM EST 50 mcg Ri ght Arm Given 07/18/2019 2:30 PM EST 50 mcg Ri ght Arm lactated ringers infusion 100 mL/hr, Intravenous, CONTINUOUS, Starting on Thu07/18/19 at 1315, Until Thu07/18/19 at 1522, Endoscopy (Day of Procedure) New Bag 07/18/2019 1:15 PM EST 100 mL/hr 100 mL/hr midazolam (PF) (VERSED) multi-dose injection ONCE PRN, Starting on Thu07/18/19 at 1422, Until Thu07/18/19 at 1744, Intra-Operative (Intra-Procedure), Routine Given 07/18/2019 2:39 PM EST 1 mg Right Arm Given 07/18/2019 2:33 PM EST 1 mg Ri ght Arm Given 07/18/2019 2:30 PM EST 1 mg Ri ght Arm documented in this encounter Active and Recently Administered Medications Times are shown in EST. Continuous Medication Order 07/16/2019 07/17/2019 07/18/2019 lactated ringers infusion (CANCELED) 100 mL/hr, Intravenous, CONTINUOUS, Starting on 07/18/19 at 1315, Until Thu07/18/19 at 1522, Endoscopy (Day of Procedure) 1315 (New Bag - Prov ider: Leo Whitley RN) PRN Medication Order 07/16/2019 07/17/2019 07/18/2019 diphenhydrAMINE (BENADRYL) injection (CANCELED) ONCE PRN, Starting on 07/18/19 at 1427, Until Thu07/18/19 at 1744, Intra-Operative (Intra-Procedure), Routine 1427 (Given - Provid er: Mari Lyn RN)1432 (Given - Provider: Mari Lyn RN) fentaNYL 50 mcg/mL multi-dose injection (CANCELED) ONCE PRN, Starting on 07/18/19 at 1422, Until 07/18/19 at 1744, Intra-Operative (Intra-Procedure), Routine 1422 (Given - Provid er: Mari Lyn RN)1425 (Given - Provider: Mari Lyn RN)1430 (Given - Provider: Mari Lyn RN)1433 (Given - Provider: Mari Lyn RN)1439 (Given - Provider: Mari Lyn RN) midazolam (PF) (VERSED) multi-dose injection (CANCELED) ONCE PRN, Starting on Thu07/18/19 at 1422, Until 07/18/19 at 1744, Intra-Operative (Intra-Procedure), Routine 1422 (Given - Provid er: Mari Lyn RN)1425 (Given - Provider: Mari Lyn RN)1430 (Given - Provider: Mari Lyn RN)1433 (Given - Provider: Mari Lyn RN)1439 (Given - Provider: Mari Lyn RN) documented in this encounter Care Teams Compotype Operator Relationship Specialty Start Date End Date Presley Santillan MD [address] [place] [address] PCP - General Internal Medicine 02/10/17 documented as of this encounter
--- OUTSIDE RECORDS SUMMARY | 2024-05-03 07:19 | XMS_ITS | Encounter Summary ---
Author Organization [facility] [place] [address] Care Team Providers Care Network Architect Name Role Phone Presley Santillna MD Primary Care Provider [phone] Encounter Details Date Type Department Care Team (Late st Contact Info) Description 09/10/2022 Orders Only Neurosurgery at [facility] [place] [address] Daniela Justin MD [facility] [place] [address] Carpal tunnel syndrome, bilateral (Primary Dx) Social [...] place to sleep or slept in a group home (including now)? No 04/18/2022 Sex and Gender Information Value Date Recorded Sex Assigned at Not on file Gender Identity Not on file Sexual Orientation Not on file documented as of this encounter Plan of Treatment Not on file documented as of this encounter Visit Diagnoses Diagnosis Carpal tunnel syndrome, bilateral- Primary Carpal tunnel syndrome documented in this encounter Care Teams Network Architect Relationship Specialty Start Date End Date Presley Santillan MD [address] [place] [address] PCP - General Internal Medicine 02/10/17 documented as of this encounter
--- OUTSIDE RECORDS SUMMARY | 2024-05-03 07:19 | XMS_ITS | Encounter Summary ---
Author Organization [facility] Address [facility] [place] [address] Care Team Providers Care Copy Lathe Operator Name Role Phone Presley Santillan MD Primary Care Provider [phone] Encounter Details Date Type Department Care Team (Late st Contact Info) Description 09/04/2022 Telephone Plastic Surgery at [facility] [place] [phone] Julianne Urrutia Social History Tobacco Use Types Packs/Day Years [...] on filedocumented in this encounter Care Teams Copy Lathe Operator Relationship Specialty Start Date End Date Presley Santillan MD [address] [place] [address] PCP - General Internal Medicine 02/10/17 documented as of this encounter
--- OUTSIDE RECORDS SUMMARY | 2024-05-03 07:19 | XMS_ITS | Encounter Summary ---
Author Organization [facility] [address] Care Team Providers Care Repair Welder Name Role Phone Presley Santillan MD Primary Care Provider [phone] Encounter Details Date Type Department Care Team (Late st Contact Info) Description 12/02/2017 External Results Hematology [place] [phone] Mercedez [place]field MD [facility] [address] [place] [address] Social History Tobacco Use Types Packs/Day Years [...] Associated Diagnosis Comments CBC (WITH DIFF) Routine 12/01/2017 documented in this encounter Results * CBC (with Diff) (12/01/2017) White Blood Cell 7.46 Hemoglobin 12.1 Hematocrit 35.3 Platelet 222 Neutrophil Absolute (ANC) - Automated 3.90 Blood specimen (specimen) 12/01/2017 Mercedez M Roseann MD HEMATOLOGY ORDER [place] documented in this encounter Visit Diagnoses Not on filedocumented in this encounter Care Teams Repair Welder Relationship Specialty Start Date End Date Presley Santillan MD [address] [place] [address] PCP - General Internal Medicine 02/10/17 documented as of this encounter
--- OUTSIDE RECORDS SUMMARY | 2024-05-03 07:19 | XMS_ITS | Encounter Summary ---
Author Organization [facility] Address [facility] [place] [address] Care Team Providers Care Gun Sealing Machine Operator Name Role Phone Presley Santillan MD Primary Care Provider [phone] Encounter Details Date Type Department Care Team (Late st Contact Info) Description 08/28/2022 Telephone Plastic Surgery at [facility] [place] [phone] Vikki Ford Social History Tobacco Use Types [...] place to sleep or slept in a intermediate (including now)? No 04/18/2022 Sex and Gender Information Value Date Recorded Sex Assigned at Not on file Gender Identity Not on file Sexual Orientation Not on file documented as of this encounter Plan of Treatment Not on file documented as of this encounter Visit Diagnoses Not on filedocumented in this encounter Care Teams Gun Sealing Machine Operator Relationship Specialty Start Date End Date Presley Santillan MD [address] [place] [address] PCP - General Internal Medicine 02/10/17 documented as of this encounter
--- OUTSIDE RECORDS SUMMARY | 2024-05-03 07:19 | XMS_ITS | Clinical Summary ---
Author Organization [facility] Address [facility] [place] [address] Care Team Providers Care Supervisor Shop Name Role Phone Presley Santillan MD Primary Care Provider Allergies Active Allergy Reactions Criticality Noted Date Comments [place] Other (See Comments) 02/10/2017 Abdominal pain Cis Free Text Allergy Low sugars. CIS - Sensitive Cis Free Text Allergy environmental. CIS - Allergic Rhinitis Gluten Other (See Comments) 02/10/2017 Abdominal pain/intestinal pain Milk Containing Products (Dairy) Other (See Comments) 02/10/2017 Abdominal/intestinal pain Peanut Other (See Comments) 02/10/2017 Abdominal pain Yeast Other (See Comments) 02/10/2017 Abdominal/intestinal pain Ondansetron Other (See Comments) Medium 06/25/2017 MAKES ME RESTLESS Medications Medication Sig Dispensed Refills Start Date End Date Status cyclobenzaprine (FLEXERIL) 5 mg Tablet daily as needed. 07/10/2017 Active famotidine (Pepcid) 20 mg tablet Take 20 mg by mouth daily. 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 03/03/17 - Cycle 2 pulse Dex and dose #1 Rituxan (plan for 4 weekly doses) Rituximab given weekly X 4 03/11/17 to 10/4/17. -Cycle 3 Pulse Dex due 03/24/17 -Cycle 4 pulse Dex 04/13/17 - Cycle 5 pulse Dex due 05/04/17 ?? Resolved Problems Problem Noted Date Diagnosed Date Resolved Date Thrombocytopenia 02/10/2017 03/17/2017 Social History Tobacco Use Types Packs/Day Years [...] a senior living (including now)? No 04/18/2022 DH IPV Inpatient [...] on file Sexual Orientation Not on file Last Filed Vital Signs Vital Sign Reading [...] Mass Index 24.27 10/20/2022 12:12 PM EDT Plan of Treatment Health Maintenance Due Date Last Done Comments Tetanus/Diphtheria/Pertussis Vaccines (1 - Tdap) 11/10 HPV test 2018 PAP Smear 2018 Covid-19 Vaccine ( season) 2024 Influenza (Flu) vaccine (1 o f 1 - Influenza standard series) 02/28/2024 HIV screen Completed 02/10/2017 Hepatitis C Screening Completed 02/11/2017 Procedures Procedure Name Priority Date/Time Associated Diagnosis Comments HEPATITIS C ANTIBODY Routine 02/11/2017 1:13 PM EDT HIV SCREEN, 4TH GENERATION ([facility]/CGP/APD/NLH) Routine 02/10/2017 10:37 PM EDT from Last 3 Months or Most Recently Relevant to Health Maintenance Results * Hepatitis C Antibody (02/11/2017 1:13 PM EDT) Hepatitis C Antibody Negative Negative [facility] Comment: An updated Hepatitis C Ab assay reagent was implemented on 09/10/16. Please contact Dr. Alvarez at [phone] with any questions or concerns. Blood specimen (specimen) 02/11/2017 1:13 PM EDT 02/11/2017 1:32 PM EDT Narrative Resulting Agency Comment Spec In Lab Hemal Goodrich Jr., MD CHEMISTRY ORDERABLES [facility] [place] [address] * HIV Screen, 4th Generation (02/10/2017 10:37 PM EDT) HIV Ab/Ag Screen Negative Negative [facility] Comment: This 4th Generation HIV test screens for the presence of the HIV-1 p24 antigen as well as antibodies reactive against HIV-1 and HIV-2. A negative screen does not rule out an acute HIV infection. If acute HIV infection is suspected, testing should be repeated in 2 - 3 weeks or HIV nucleic acid testing performed. Blood specimen (specimen) 02/10/2017 10:37 PM EDT 02/10/2017 10:42 PM EDT Narrative Resulting Agency Comment Spec In Lab Hemal Goodrich Jr., MD CHEMISTRY ORDERABLES Performing Organization Address City/[facility] Co de Phone Number [facility] [place] [address] from Last 3 Months or Most Recently Relevant to Health Maintenance Advance Directives * Full Code (Latest Code Status on File) Date Activated Date Inactivated Comments 02/10/2017 9:01 PM 02/13/2017 4:36 PM Question Answer Comments Does patient have capacity to make decision: Yes * Full Code Date Activated Date Inactivated Comments 02/10/2017 8:04 PM 02/10/2017 9:01 PM Question Answer Comments Does patient have capacity to make decision: Yes Care Teams Supervisor Shop Relationship Specialty Start Date End Date Presley Santillan MD [address] [place] [address] PCP - General Internal Medicine 02/10/17
--- OUTSIDE RECORDS SUMMARY | 2024-05-03 07:19 | XMS_ITS | Encounter Summary ---
Author Organization [facility] [place] [address] Care Team Providers Care Electrical Engineering Director Name Role Phone Presley Santillan MD Primary Care Provider [phone] Encounter Details Date Type Department Care Team (Late st Contact Info) Description 12/02/2017 Notes Only Hematology Oncology at [address] [phone] Kandis Hill RN Social History Tobacco Use Types Packs/Day [...] as of this encounter Progress Notes * Kandis Hill RN - 12/02/2017 9:20 AM EDT Patient's last name is now Joseph. Clinical Primary Care Md notified. documented in this encounter Plan of Treatment Not on file documented as of this encounter Visit Diagnoses Not on filedocumented in this encounter Care Teams Electrical Engineering Director Relationship Specialty Start Date End Date Presley Santillan MD [address] [place] [address] PCP - General Internal Medicine 02/10/17 documented as of this encounter
--- OUTSIDE RECORDS SUMMARY | 2024-05-03 07:20 | XMS_ITS | Encounter Summary ---
Author Organization [facility] [place] [address] Care Team Providers Care Online Journalist Name Role Phone Presley Santillan MD Primary Care Provider Reason for Visit * Auth/Cert Specialty Diagnoses / Procedures Referred By Contac t Referred To Contact Diagnoses h/o colitis seen on CT scan at OSH, c/o abdominal pain, alternating diarreha/constipation. Needs to r/o IBD Procedures PRO COLONOSCOPY, DIAGNOSTIC PRO UPPER GI ENDOSCOPY, DIAGNOSTIC PRO ANESTH, UGI ENDOSCOPY PRO ANESTH, INTESTINE, SCOPE, LOW COLONOSCOPY, DIAGNOSTIC EGD, UPPER GI ENDOSCOPY Referral ID Status Reason Start Date Expiration Date Visits Re quested Visits Authorized [id number] 1 1 Encounter Details Date Type Department Care Team (Late st Contact Info) Description 06/25/2017 11:32 AM EST Anesthesia [place] [address] James Montiel DO [facility] DR [place] [address] Anesthesia Record Procedure Summary Procedure Name Responsible Anesthesiologist Anesthesia Start Time Anesthesia Stop Time COLONOSCOPY, DIAGNOSTIC (WRVU 3.26) (Trunk) James Montiel DO 06/25/17 1132 06/25/17 1225 Events Date Time Event Comment 06/25/2017 1042 1132 Start 1134 AN Verify 1135 An Start Data 1140 An Induction 4 L/min O2 via NC. Smooth IV induction; spontaneous ventilation maintained. 1142 Anesthesia Ready 1144 Procedure Start 1220 Procedure Stop 1223 an stop data Patient spontan eously ventilating without issue. VSS. Responding to commands. 1224 Recovery or ICU Handoff Naomei ent care was transferred to the destination unit staff after review of the patient's medical history, current anesthetic/surgical status and plan, according to the Provider Handoff Checklist. 1225 Stop Patient awake, alert, and oriented; actively conversing with staff. Spontaneous ventilation without issue. VSS. Full report given to POWER PLANT OPERATOR APPRENTICE. Meds Name Total IV Lidocaine 50 mg Propofol 140 mg Propofol INF 336.6 mg lactated Ringers infusion 900 mL * Agents Name O2 Auxiliary Flowmeter 1 * Blood No blood administrations on file. Lines, Drains, and Airways Type Details Placement Removal (RETIRED) Peripheral IV Line - Single Lumen 04/17/17; 1256; median cubital vein (antecubital fossa), right; gyym-chr-zjbytc catheter system; 22 gauge, 3/4 in length; tolerated well, appears comfortable; 06/25/17; 1306 04/17/17 1256 by Nitesh Brooke 06/25/17 1306 by Grisel Castanon RN (RETIRED) Peripheral IV Line - Single Lumen 06/25/17; 1030; metacarpal vein (top of hand), right; chtp-mue-heamoh catheter system; 20 gauge, 1 in length; SLYVIA; distraction, intradermal injection, tolerated well; 0; 06/25/17; 1232 06/25/17 1030 by Mercedez York RN 06/25/17 1232 by Karen Wade RN documented in this encounter Social History [...] OR Notes * Anesthesia Postprocedure Evaluation - James Montiel DO - 06/25/2017 2:53 PM EST [facility] Department of Anesthesiology Post-procedure Note Patient: Daniela Gardner Procedure Summary Date Anesthesia Start Anesthesia Stop Room / Location 06/25/17 1132 1225 [facility] ENDO 4 / [facility] END[facility] Procedure Diagnosis Surgeon Responsible Provider COLONOSCOPY, DIAGNOSTIC (N/A Trunk); EGD, UPPER GI ENDOSCOPY (N/A Trunk) Alternating constipation and diarrhea; Abdominal pain, unspecified location (h/o colitis seen on CT scan at OSH, c/o abdominal pain, alternating diarreha/constipation. Needs to r/o IBD Doctor ; (consult)) Marino Smith MD Joshi, [place], DO All Anesthesia Providers: Anesthesiologist: James Montiel DO PLANOGRAPH OPERATOR: Zaira Velasquez CRNA Most Recent Vitals: 06/25/17 1250 BP: Pulse: Resp: SpO2: 100% Pain Patient Location: PACU[facility] Level of Consciousness: Awake and Alert Pain Management: Satisfactory Analgesia PONV: None Cardiovascular Status: Hemodynamically Stable Respiratory Status: Stable Respiratory Status Postoperative Fluid Status: Intravascular EUvolemia Possible Anesthetic Complications: NONE apparent at time of evaluation Final Primary Anesthesia Type: Comments: * Anesthesia Preprocedure Evaluation - James Montiel DO - 06/24/2017 8:24 PM EST Pre-Anesthesia Evaluation for: Daniela Gardner a 26 y.o. female. Procedure(s): COLONOSCOPY, DIAGNOSTIC EGD, UPPER GI ENDOSCOPY Patient Active Problem List Diagnosis ??? Acute ITP DX 02/12: Received IVIG in house and 4 days of Dex on 02/10, with rapid response, and normalization of platelets. 03/03/17 - Cycle 2 pulse Dex and dose #1 Rituxan (plan for 4 weekly doses) Rituximab given weekly X 4 03/11/17 to 04/01/17. -Cycle 3 Pulse Dex due 03/24/17 -Cycle 4 pulse Dex 04/13/17 - Cycle 5 pulse Dex due 05/04/17 ?? No past medical history on file. No past surgical history on file. Social History Substance Use Topics ??? Smoking status: Former Smoker Years: 1.00 Types: Cigarettes Quit date: 02/17/2011 ??? Smokeless tobacco: Never Used Comment: quit years ago ??? Alcohol use Not on file History Drug Use Not on file Allergies Allergen Reactions ??? [place] Other (See Comments) Abdominal pain ??? Cis [...] home medications have been reviewed. Physical Exam: There were no vitals filed for this visit. There is no height or weight on file to calculate BMI. Airway Assessment: Mallampati: I TM distance: >3 FB Neck ROM: full Cardiovascular Assessment: Rhythm: regular Rate: normal Pulmonary Assessment: breath sounds clear to auscultation Dental Assessment: - normal exam Misc Assessment: Patient is wearing No contact(s). IV access: Peripheral line Anesthesia Plan: ASA 2 MAC, with a(n) intravenous induction 26 yr old with ITP. Last plt count 80,000 in 02/2017. EG/D/colonoscopy. More recent plt approximately 180,000. Patient also states she has asthma and takes Flovent for her symptoms. She also was diagnosed with mitral valve regurgitation. (mild) Echocardiogram done elsewhere. She denies any tachyarrhy thmias. Patient is requesting promethazine for nausea. Ok to proceed. Region - Other Informed Consent: Anesthetic plan and risks discussed with patient. Plan discussed with PLANOGRAPH OPERATOR and attending. PAT Staff Note documented in this encounter Plan of Treatment Not on file documented as of this encounter Visit Diagnoses Not on filedocumented in this encounter Administered Medications Inactive Administered Medications - up to 3 most recent administrations Medication Order MAR Action Action Date Dose Rate Site lactated Ringers infusion 100 mL/hr, Intravenous, CONTINUOUS, Starting on Dionne 06/25/17 at 1045, Until Dionne 06/25/17 at 1306, Endoscopy (Day of Procedure) New Bag 06/25/2017 10:30 AM EST lidocaine (PF) (XYLOCAINE) 100 mg/5 mL (2 %) injection PRN, Starting on Dionne 12/28/17 at 1140, Until Dionne 06/25/17 at 1224, Anesthesia Intra-op, Routine Given 06/25/2017 11:40 AM EST 50 mg propofol (DIPRIVAN) 10 mg/mL bolus injection (Anesthesia) PRN, Starting on Dionne 06/25/17 at 1140, Until Dionne 06/25/17 at 1224, Anesthesia Intra-op Given 06/25/2017 11:42 AM EST 40 mg Given 06/25/2017 11:41 AM EST 40 mg Given 06/25/2017 11:40 AM EST 60 mg propofol (DIPRIVAN) infusion CONTINUOUS PRN, Starting on Dionne 06/25/17 at 1142, Until Dionne 06/25/17 at 1224, Anesthesia Intra-op, Routine Rate/Dose Change 06/25/2017 12:00 PM EST 100 mcg/kg/min 40.8 mL/hr Rate/Dose Change 06/25/2017 11:58 AM EST 125 mcg/kg/min 51 mL/hr Rate/Dose Change 06/25/2017 11:52 AM EST 150 mcg/kg/min 61 .2 mL/hr documented in this encounter Care Teams Online Journalist Relationship Specialty Start Date End Date Presley Santillan MD [address] [place] [address] PCP - General Internal Medicine 02/10/17 documented as of this encounter
--- OUTSIDE RECORDS SUMMARY | 2024-05-03 07:20 | XMS_ITS | Encounter Summary ---
Author Organization [facility] Address [facility] [place] [address] Care Team Providers Care Glass Tinter Name Role Phone Presley Santillan MD Primary Care Provider Encounter Details Date Type Department Care Team (Late st Contact Info) Description 03/18/2017 8:00 AM EDT Office Visit Hematology/Oncolog y at [address] [phone] Mercedez Whitfield MD [facility] [address] HEMATOLOGY [place] [address] Angeli Dao, [place] [facility] [address] [place] [address] Acute ITP; Idiopathic thrombocytopenic purpura Social History Tobacco Use Types Packs/Day Years Used Date Smoking Tobacco: Former Cigarettes 0 02/17/2010 - 02/17/2011 Smokeless Tobacco: Never Comments:quit years ago Sex and Gender Information Value Date Recorded Sex Assigned at Not on file Gender Identity Not on file Sexual Orientation Not on file documented as of this encounter Last Filed Vital Signs Vital Sign Reading Time Taken Comments Blood Pressure 113/72 03/18/2017 8:00 AM EDT Pulse 96 03/18/2017 8:00 AM EDT Temperature 37 ??C (98.6 ??F) 03/18/2017 8:00 AM EDT Respiratory Rate 18 03/18/2017 8:00 AM EDT Oxygen Saturation 100% 03/18/2017 8:00 AM EDT Inhaled Oxygen Concentration - - Weight 65.3 kg (144 lb) 03/18/2017 8:00 AM EDT Height 160 cm (5' 2.99) 03/18/2017 8:00 AM EDT copied Body Mass Index 25.51 03/18/2017 8:00 AM EDT documented in this encounter Progress Notes * Angeli Dao, FELL CUTTER - 03/18/2017 8:00 AM EDT Subjective: Patient ID: Daniela Gardner is a 26 y.o. female here for f/u of ITP Patient Active Problem List Diagnosis ??? Acute ITP DX 02/12: Received IVIG in house and 4 days of Dex on 02/10, with rapid response, and normalization of platelets. 03/03/17 - Cycle 2 pulse Dex and dose #1 Rituxan (plan for 4 weekly doses) -Cycle 3 Pulse Dex due 03/24/17 ?? HPI Daniela is doing quite well. 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 NO bleeding or bruising. She does feel a bit 'sore' feels bruised, but is not. She has had some acid reflux - she does have Protonoix - she does not always take it. She did have to use her i nhaler yesterday. Both children at home with URI's. No fevers/chills. She has recently changed her diet - has increased her gluten - this has changed her bowels slightly - but no significant diarrheaor constipation. Review of Systems Constitutional: Positive for fatigue. Improving HENT: Negative. Eyes: Negative. Respiratory: Positive for shortness of breath. Negative for cough. Mild asthma symtpoms - inhaler PRN effective Cardiovascular: Negative. Negative for chest pain, palpitations and leg swelling. Gastrointestinal: Positive for constipation and diarrhea. Negative for nausea and vomiting. And GERD sx as above Genitourinary: Negative. Musculoskeletal: Positive for myalgias. Non- specific Skin: Negative. Neurological: Negative. Negative for weakness and numbness. Psychiatric/Behavioral: Negative. Objective: Physical Exam Constitutional: She is oriented to person, place, and time. She appears well- developed and well-nourished. No distress. HENT: Mouth/Throat: Oropharynx is clear and moist. No oropharyngeal exudate. Eyes: Conjunctivae are normal. Pupils are equal, round, and reactive to light. Neck: Normal range of motion. Neck supple. Cardiovascular: Normal rate, regular rhythm and normal heart sounds. No murmur heard. Pulmonary/Chest: Effort normal and breath sounds normal. She has no wheezes. She has no rales. Abdominal: Soft. Bowel sounds are normal. She exhibits no mass. There is no rebound and no guarding. Musculoskeletal: Normal range of motion. She exhibits no edema. Lymphadenopathy: She has no cervical adenopathy. She has no axillary adenopathy. Right: No inguinal and no supraclavicular adenopathy present. Left: No inguinal and no supraclavicular adenopathy present. Neurological: She is alert and oriented to person, place, and time. Skin: Skin is warm and dry. No bruises or pettechiae Psychiatric: She has a normal mood and affect. BP 113/72 (Patient Position: Sitting) Pulse 96 Temp 37 ??C (98.6 ??F) (Oral) Resp 18 Ht 160cm (5' 2.99) Comment: copied Wt 65.3 kg (144 lb) SpO2 100% BMI 25.51 kg/m2 WBC: 11.8 HG- 12.1 PLT- 129K Assessment and Plan: 1. ITP - Daniela was originally treated with IVIG as inpatient along with pulse Dex. She had a nice rapid response. Platelets did drop slightly and she was started on Rituxan last week. She tolerated this quite well with an atypical ? Infusion reaction with a cough and flush. She prefers to not have rapid Rituxan today - we will use second time dose and consider rapid for next infusion if she has no reactions today. GERD sx - worse with steroids - encourage to take daily PPI during Pulse of Dex as well as for a few days after. Due for Dex - will start cycle 3 on 03/24/17. RX provided and reviewed dosing - 10 pills - 4 mg each- daily for 4 days. Daniela Gardner will return to clinic in 3 weeks. We will conitnue with weekly CBC until then. she will call before then if any concerns or changes in status. 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
--- OUTSIDE RECORDS SUMMARY | 2024-05-03 07:20 | XMS_ITS | Encounter Summary ---
Author Organization [facility] [place] [address] Care Team Providers Care Mill Helper Name Role Phone Presley Santillan MD Primary Care Provider Reason for Referral * Diagnostic Test (Routine) - Closed Specialty Diagnoses / Procedures Referred By Daryl sargent Referred To Contact Radiology Diagnoses Alternating constipation and diarrhea Abdominal pain, unspecified location Procedures MRI Enterography wwo Contrast Litzy Barron APRN [facility] [place] [address] [place] [address] Referral ID Status Reason Start Date Expiration Date V isits Requested Visits Authorized [id number] Closed Specialty Service Requested 04/06/2017 06/04/2017 1 1 Reason for Visit * Consultation (Routine) - Closed Specialty Diagnoses / Procedures Referred By Daryl sargent Referred To Contact Gastroenterology Diagnoses Colitis; suspected non-infectious colitis. Presley Santillan MD [address] [place] [address] [facility] [place] [address] Referral ID Status Reason Start Date Expiration Date V isits Requested Visits Authorized [id number] Closed Consult, Test & Treat Connection Center 02/10/2017 02/10/2018 1 1 Encounter Details Date Type Department Care Team (Late st Contact Info) Description 02/17/2017 1:00 PM EDT Office Visit [place] [address] Litzy Barron, LEAD PL SQL DEVELOPER [facility] [place] [address] Abdominal pain, unspecified location; Alternating constipation and diarrhea; Gastroesophageal reflux disease, esophagitis presence not specified Social History Tobacco Use Types Packs/Day Years Used Date Smoking Tobacco: Former Cigarettes 0 02/17/2010 - 02/17/2011 Smokeless Tobacco: Never Comments:2 cigarettes a week Sex and Gender Information Value Date Recorded Sex Assigned at Not on file Gender Identity Not on file Sexual Orientation Not on file documented as of this encounter Last Filed Vital Signs Vital Sign Reading Time Taken Comments Blood Pressure 128/77 02/17/2017 1:00 PM EDT Pulse 99 02/17/2017 1:00 PM EDT Temperature - - Respiratory Rate - - Oxygen Saturation - - Inhaled Oxygen Concentration - - Weight 71 kg (156 lb 8 oz) 02/17/2017 1:00 PM ED T Height 154.9 cm (5' 1) 02/17/2017 1:00 PM EDT Body Mass Index 29.57 02/17/2017 1:00 PM EDT documented in this encounter Progress Notes * Litzy Barron, LEAD PL SQL DEVELOPER - 02/17/2017 1:00 PM EDT Department of Gastroenterology Outpatient Consult Note Reason for Consult: possible colitis ?? History of Present Illness: Ms. Gardner is a 26 y.o. female with pmh of irritable bowel syndrome ( constipation/diarrhea), Raynaud's phenomenon, hx of possible colitis who was admitted 02/11/17 for rapidly??progressive thrombocytopenia, ITP, s/p IVIG and now on oral steroid ( dexamethasone) followed by hematology, presents to our [facility] for further evaluation of possible colitis. She is scheduled to see Dr. Smith in April but advised to come in sooner instead. She has seen our GI team during her hospitalization, please see GI in- patient notes for details. Further work up for colitis( endoscopy) were on hold at that time due to severe thrombocytopenia. She reports longstanding history of constipation/diarrhea all her life. Certain foods could trigger her sxs but other times it could occur randomly. She has gluten sensitivity and has avoided gluten for many years. Despite avoiding gluten, some days she'll still have bouts of diarrhea/constipation, all at once. She'll have difficulty passing stool, and needs to either lift her legs up to defecate and stool will be hard followed by liquid stool multiples times per day. No bleeding. Never took laxatives. She has chronic abdominal pain the past 5 years. She has constant pain, pain scale 2-3/10 LLQ that fluctuates in intensity and flares up intermittently with associated nausea/vomiting. She gets bloated at times. Once in a while will take Motrin for aches/pains. Most recently she went to local ER due to increased/severe abdominal pain. She had a CT scan on 02/04/17 found Nonspecific colitis involving descending and sigmoid colon. Likely this is either infectious or inflammatory bowel disease.. She reports that last year, she had similar episodes of increased abdominal pain and had CT scan , EGD and colonoscopy, see below. ? No fever/chills. Review of Systems - as above, the rests negative. No past medical history on file. Patient Active Problem List Diagnosis Code ??? Thrombocytopenia D69.6 ??? Acute ITP D69.3 No past surgical history on file. Social History Social History ??? Marital status: Single Spouse name: N/A ??? Number of children: N/A ??? Years of education: N/A Occupational History ??? Not on file. Social History Main Topics ??? Smoking status: Former Smoker Years: 1.00 Types: Cigarettes Quit date: 02/17/2011 ??? Smokeless tobacco: Never Used Comment: 2 cigarettes a week ??? Alcohol use Not on file ??? Drug use: Not on file ??? Sexual activity: Not on file Other Topics Concern ??? 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 P. Grandfather colon cancer M. great grandmother colon cancer No IBD history. Vitals: 02/17/17 1300 BP: 128/77 Pulse: 99 Weight: 71 kg (156 lb 8 oz) Height: 154.9 cm (5' 1) Physical Exam Constitutional: She appears well-developed and well-nourished. No distress. HENT: Mouth/Throat: Oropharynx is clear and moist. No oropharyngeal exudate. Eyes: Conjunctivae are normal. No scleral icterus. Cardiovascular: Normal rate and regular rhythm. Pulmonary/Chest: Effort normal and breath sounds normal. No respiratory distress. Abdominal: Soft. Bowel sounds are normal. She exhibits no distension. There is tenderness (diffuse tendenrss on palpatpoin L>R and epigastric area. ). Neurological: She is alert. TESTINGS: LABS: Ref. Range 02/17/2017 10:05 WBC Latest Ref Range: 4.0 - 9.5 x10(3)/mcL 8.8 RBC Latest Ref Range: 4.00 - 5.21 x10(6)/mcL 3.99 (L) Hemoglobin Latest Ref Range: 11.7 - 15.5 gm/dL 12.6 Hematocrit Latest Ref Range: 35.7 - 45.8 % 34.2 (L) MCV Latest Ref Range: 82.6 - 94.4 fL 85.7 MCH Latest Ref Range: 27.1 - 32.0 pg 31.6 MCHC Latest Ref Range: 31.7 - 35.0 gm/dL 36.8 (H) RDWSD Latest Ref Range: 37.0 - 46.0 fL 35.8 (L) RDWCV Latest Ref Range: 11.5 - 14.1 % 11.7 Platelets Latest Ref Range: 145 - 357 x10(3)/mcL 217 MPV Latest Ref Range: 7.6 - 12.9 fL 9.1 nRBC % Auto Latest Units: % 0.0 nRBC Abs Auto Latest Ref Range: 0.000 - 0.000 x10(3)/mcL 0.000 Neutr Abs (ANC) Latest Ref Range: 1.70 - 6.10 x10(3)/mcL 3.70 Neutrophils % Latest Units: % 42.1 Immature Gran % Latest Units: % 0.80 Lymphocytes % Latest Units: % 44.3 Monocytes % Latest Units: % 9.3 Eosinophils % Latest Units: % 3.4 Basophils % Latest Units: % 0.1 Ellie Gran Abs Latest Ref Range: 0.00 - 0.04 x10(3)/mcL 0.07 (H) Lymphocytes Abs Latest Ref Range: 0.9 - 3.2 x10(3)/mcL 3.9 (H) Monocyte Abs Latest Ref Range: 0.3 - 0.9 x10(3)/mcL 0.8 Eosinophils Abs Latest Ref Range: 0.0 - 0.4 x10(3)/mcL 0.3 Basophils Abs Latest Ref Range: 0.0 - 0.1 x10(3)/mcL 0.0 Sodium Latest Ref Range: 135 - 145 mmol/L 138 Potassium Latest Ref Range: 3.5 - 5.0 mmol/L 3.8 Chloride Latest Ref Range: 98 - 107 mmol/L 101 CO2 Latest Ref Range: 22 - 31 mmol/L 25 Anion Gap Latest Ref Range: 5 - 15 mmol/L 12 BUN Latest Ref Range: 8 - 18 mg/dL 10 Creatinine Latest Ref Range: 0.70 - 1.20 mg/dL 0.93 Estimated GFR Latest Ref Range: >=60 >60 Glucose Lvl Latest Ref Range: 65 - 199 mg/dL 89 Calcium Latest Ref Range: 8.5 - 10.5 mg/dL 8.7 Total Protein Latest Ref Range: 6.1 - 8.0 gm/dL 7.3 Albumin Latest Ref Range: 3.2 - 5.2 gm/dL 3.8 Total Bilirubin Latest Ref Range: 0.2 - 1.3 mg/dL 0.9 Alk Phos Latest Ref Range: 40 - 104 unit/L 41 AST Latest Ref Range: 0 - 30 unit/L 12 ALT Latest Ref Range: 0 - 30 unit/L 8 CK, Total Latest Ref Range: 0 - 160 unit/L 26 Ref. Range 02/11/2017 16:03 H pylori Stool Ag Latest Ref Range: Negative Negative Imaging: CT abdomen and pelvis- IV contrast only ( [facility] 02/05/17) Nonspecific colitis involving descending and sigmoid colon. Likely this is either infectious or inflammatory bowel disease. ? CT abdomen and pelvis (08/12/15) - taken from Dr. Goldsmith note Mild thickening of the wall of the descending and proximal sigmoid colon. This may be due to decompressed bowel versus nonspecific colitis. ? ENDOSCOPY ([facility], Dr. Matute): EGD 09/04/15: normal duodenum... The stomach grossly unremarkable with no hiatal hernia. Esophagus was grossly unremarkable, no abnormalities. Pathology: Duodenum- with focal foveolar metaplasia and Ken' gland hyperplasia consistent with peptic duodenitis. Stomach, antrum- reactive (chemical)gastropathy. No evidence of H. pylori on H&E stain. Distal esophagus- w/ features of reflux esophagitis Prox esophagus- no specific pathologic features. ? Colonoscopy 09/04/15: appeared to be unremarkable except for one polyp that was about 0.75 cm in diameter in the transverse colon. ??Pathology: TI- no specific pathologic features. Ascending colon- no specific pathologic features. Transverse colon,polyp- Sessile serrated adenoma Transverse colon- with reactive lymphoid aggregate Descending colon- with focal hyperplastic changes Sigmoid- with reactive lymphoid aggregate Rectum- no specific pathologic features. ASSESSMENT/PLAN: Ms. Gardner is a 26 y.o. female with pmh of irritable bowel syndrome ( constipation/diarrhea), Raynaud's phenomenon, hx of possible colitis who was admitted 02/11/17 for rapidly??progressive thrombocytopenia, ITP, s/p IVIG and now on oral steroid ( dexamethasone) followed by hematology, presents to our [facility] for further evaluation of possible colitis. She has evidence of nonspecific colitis on recent CT scan. She had a colonoscopy last year that wasnegative. We will need to restage her disease to evaluate for any progression of disease. I recommend getting MRE, EGD and colonoscopy. She prefers to hold off on above testings until she finished her TX for her ITP. Her platelet currently is back to normal. In the meantime, We will get labs today for ESR, CRP and TSH I told her that she needs tTG IGA but needs to get back on regular with gluten diet for at least 3 weeks which she could do at the same time prior to her EGD as well. We will also get stool studies to R/O infection and calprotectin which is a surrogate marker for inflammation. Continue Protonix daily. Avoid all NSAID'S use as it could trigger IBD sx's. OK to use tylenol for aches/pain. Lastly, she may also have symptoms of pelvic floor dysfunction and in the future, once we have above findings and once ITP has been treated , we could consider anal manometry and consider PT for pelvic floor rehab if needed. RTC after above testings with Dr. Smith or sooner with me if needed. documented in this encounter Plan of Treatment Scheduled Orders Name Type Priority Associated Diagnoses Orde r Schedule COLONOSCOPY Procedures Routine Alternating constipation and diarrhea Abdominal pain, unspecified location Ordered: 02/17/2017 UPPER GI ENDOSCOPY Procedures Routine Alternating constipation and diarrhea Abdominal pain, unspecified location Ordered: 02/17/2017 documented as of this encounter Results * MRI Enterography wwo Contrast (04/17/2017 5:00 PM EDT) Anatomical Region Laterality Modality Abdomen Magnetic Resonan ce Impressions 04/20/2017 9:36 AM EDT No inflammatory bowel disease. Preliminary report signed by: Pj Goodrich at 04/20/2017 9:02 AM I have personally reviewed the image(s) and the residents interpretation and agree with the findings, Raji Nguyen at 04/20/2017 9:36 AM Narrative 04/20/2017 9:36 AM EDT EXAMINATION: MRI ENTEROGRAPHY WWO CONTRAST CLINICAL HISTORY: h/o thrombocytopenia, abdominal pain, n/v, prior CT from OSH found colitis, ? infection vs inflammatory bowel disease. PLease evalute for IBD TECHNIQUE: ??MRI of the abdomen and pelvis was performed with images obtained prior to and following intravenous administration of 6ml of Gadavist. ??1 ml glucagon was also administered. COMPARISON: None FINDINGS: GI tract: No dilated small or large bowel, bowel wall thickening, or mesenteric inflammation. ??No mucosal hyperenhancement. Normal appearance of the terminal ileum. Moderate fecal load throughout the colon. Peritoneum/mesentery: No free fluid or focal fluid collection. Liver: Normal signal, no lesions. Bile ducts: Nondilated. Gallbladder: No gallstones. Normal caliber wall. Pancreas: Normal. Spleen: Normal. Adrenals: Normal. Kidneys: Normal. Lymph nodes: No lymphadenopathy. Reproductive structures: A simple appearing 4 cm left ovarian cyst. No additional imaging is required. Osseous structures: No marrow signal abnormality. Procedure Note Raji Nguyen MD - 04/20/2017 EXAMINATION: MRI ENTEROGRAPHY WWO CONTRAST CLINICAL HISTORY: h/o thrombocytopenia, abdominal pain, n/v, prior CT fromOSH found colitis, ? infection vs inflammatory bowel disease. PLease evalutefor IBD TECHNIQUE: MRI of the abdomen and pelvis was performed with imagesobtained prior to and following intravenous administration of 6ml of Gadavist. 1ml glucagon was also administered. COMPARISON: None FINDINGS: GI tract: No dilated small or large bowel, bowel wall thickening, ormesenteric inflammation. No mucosal hyperenhancement. Normal appearance of theterminal ileum. Moderate fecal load throughout the colon. Peritoneum/mesentery: No free fluid or focal fluid collection. Liver: Normal signal, no lesions. Bile ducts: Nondilated. Gallbladder: No gallstones. Normal caliber wall. Pancreas: Normal. Spleen: Normal. Adrenals: Normal. Kidneys: Normal. Lymph nodes: No lymphadenopathy. Reproductive structures: A simple appearing 4 cm left ovarian cyst. No additional imaging is required. Osseous structures: No marrow signal abnormality. IMPRESSION No inflammatory bowel disease. Preliminary report signed by: Pj Goodrich at 04/20/2017 9:02 AM I have personally reviewed the image(s) and the residents interpretationand agree with the findings, Raji Nguyen at 04/20/2017 9:36 AM 9:36 AM Litzy Barron [address]AD [address] SQL DEVELOPER IMG MRI ORDERABLE S * (ABNORMAL) TSH (03/03/2017 8:59 AM EDT) Thyroid Stimulating Hormone 7.90(H) 0.27 - 4.20 mlU/ML [facility] Blood specimen (specimen) 03/03/2017 8:59 AM EDT 03/03/2017 9:10 AM EDT Narrative Resulting Agency Comment Spec In Lab Litzy Barron LEAD PL SQL DEVELOPER CHEMISTRY ORDERAB LES [facility] [place] [address] * CRP, acute inflammation (03/03/2017 8:59 AM EDT) C-Reactive Protein 1.8 <=4.9 mg/L [facility] Blood specimen (specimen) 03/03/2017 8:59 AM EDT 03/03/2017 9:10 AM EDT Narrative Resulting Agency Comment Spec In Lab Litzy Barron LEAD PL SQL DEVELOPER CHEMISTRY ORDERAB LES Performing Organization Address [facility]/ZIP Co de Phone Number [facility] [place] [address] * (ABNORMAL) Sedimentation rate (03/03/2017 8:59 AM EDT) Sedimentation Rate Automated 38(H) 0 - 20 mm/hr [facility] Blood specimen (specimen) 03/03/2017 8:59 AM EDT 03/03/2017 9:10 AM EDT Narrative Resulting Agency Comment Spec In Lab Litzy Henrynahomisharifa LEAD [address] SQL DEVELOPER HEMATOLOGY ORDERA BLES Performing Organization Address [facility] Co de Phone Number [facility] [place] [address] * Calprotectin (03/02/2017 4:30 PM EDT) Calprotectin <15.6 <=50.0 (Normal) mcg/gm [facility] Comment: Test Performed by: [facility] [address] [address] Stool specimen (specimen) 03/02/2017 4:30 PM EDT 03/03/2017 9:19 AM EDT Narrative Resulting Agency Comment Spec In Lab Litzy Henrynahomisharifa LEAD [address] SQL DEVELOPER BODY FLUIDS AND S TOOLS ORDERABLES Performing Organization Address [facility] Co de Phone Number [facility] [place] [address] * C. Difficile Screen (03/02/2017 4:30 PM EDT) C Diff Interp Negative Negative [facility] Comment: C. diff ??Negative Clostridium difficile is not present in the specimen. If patient is having diarrhea suspected to be from an infectious cause, then Contact Precautions are still required. Stool specimen (specimen) 03/02/2017 4:30 PM EDT 03/03/2017 8:57 AM EDT Narrative Resulting Agency Comment Spec In Lab MinalQuinten Barron LEAD PL SQL DEVELOPER MICROBIOLOGY - [place] [address] documented in this encounter Visit Diagnoses Diagnosis Abdominal pain, unspecified location Alternating constipation and diarrhea Other symptoms involving digestive system Gastroesophageal reflux disease, esophagitis presence not specified Alternating constipation and diarrhea Other symptoms involving digestive system Abdominal pain, unspecified location documented in this encounter Care Teams Mill Helper Relationship Specialty Start Date End Date Presley Santillan MD [address] [id number] PCP - General Internal Medicine 02/10/17 documented as of this encounter
--- OUTSIDE RECORDS SUMMARY | 2024-05-03 07:20 | XMS_ITS | Encounter Summary ---
Author Organization [facility] [place] [address] Care Team Providers Care Dielectric Testing Machine Operator Name Role Phone Presley Santillan MD Primary Care Provider Reason for Visit * Reason Onset Date Comments Labs Only 07/08/2017 Lab Tracking Encounter Details Date Type Department Care Team (Late st Contact Info) Description 07/08/2017 Telephone Hematology Oncology at [address] [address] Carlita Hoskins RN Labs Only (Lab Tracking) Social History [...] Telephone Encounter - Carlita Hoskins RN - 07/08/2017 4:00 PM EST LAB TRACKING Daniela Gardner [id number] Diagnosis: ITP Labs ordered: every 4 weeks CBC (and PRN if pt wants to see one , she will let us know she went to lab she realizes we may not get back to her for a few days with results) Medications: Dex 40mg x 4 days every 3 weeks completed 04/2017 Rituxan infusions x4 (03/11/17-04/01/17) Assessment: Called triage nurse with complaints of bleeding gums, bruising on knees. Plan pt will have labs done at end of month again. Date WBC HGB/HCT PLT ANC PLAN LABS 07/07/17 8.24 12.5/36.7 237k 5.45 Had bruising on knees and elbows [facility] 07/28/18 06/01/17 7.27 12.2/36.4 209k 3.86 Stopped dex [facility] 06/30/16 05/25/17 8.15 12.2/35.5 153k 5.21 Dex 40 mg 05/25-05/28 [facility] 06/1505/04/17 7.77 12.4/36.3 153k 4.74 Dex 40 mg 05/04-05/07 [facility] 05/2504/20/17 10.15 12.6/35.2 175k 5.67 Completed 4 days of dex 04/16/17 [facility] 05/04/17 04/10/17 10.44 12.3/36.1 112k 7.26 4ht cycle dex start 04/13. Prior to vs with Dr Whitfield on 04/2203/30/17 9.57 12.7/36.1 206k 5.04 4th Rituxan due03/31 Labs again on 04/0703/24/17 7.87 12/34.9 120k 5.13 3rd rituxan due 03/25 Labs again 03/31/17 03/16/17 11.79 12.1/34.8 129k 8.18 2nd Rituxan given 03/18 [facility] 03/2403/06/17 11.59 11.8/35.4 166k 9.67 1st rituxan given 03/11 [facility] 03/16 documented in this encounter Plan of Treatment Not on file documented as of this encounter Visit Diagnoses Not on filedocumented in this encounter Care Teams Dielectric Testing Machine Operator Relationship Specialty Start Date End Date Presley Santillan MD [address] [place] [address] PCP - General Internal Medicine 02/10/17 documented as of this encounter
--- OUTSIDE RECORDS SUMMARY | 2024-05-03 07:20 | XMS_ITS | Encounter Summary ---
Author Organization [facility] Address [facility] [place] [address] Care Team Providers Care Senior Net Application Developer Name Role Phone Presley Santillan MD Primary Care Provider Encounter Details Date Type Department Care Team (Late st Contact Info) Description 03/03/2017 9:30 AM EDT Office Visit Hematology [place] [address] Dennys Fajardo MD [facility] [address] HEMATOLOGY [place] [address] Acute ITP Social History Tobacco Use Types Packs/Day Years [...] Sign Reading Time Taken Comments Blood Pressure 115/57 03/03/2017 9:17 AM EDT Pulse 90 03/03/2017 9:17 AM EDT Temperature 36.4 ??C (97.5 ??F) 03/03/2017 9:17 AM ED T Respiratory Rate 16 03/03/2017 9:17 AM EDT Oxygen Saturation 100% 03/03/2017 9:17 AM EDT Inhaled Oxygen Concentration - - Weight 62.3 kg (137 lb 6.4 oz) 03/03/2017 9:17 A M EDT Height 160 cm (5' 3) 03/03/2017 9:17 AM EDT Body Mass Index 24.34 03/03/2017 9:17 AM EDT documented in this encounter Progress Notes * Dennys Fajardo MD - 03/03/2017 9:30 AM EDT OUTPATIENT HEMATOLOGY/ ONCOLOGY CONSULTATION HISTORY PRESENT ILLNESS This patient is a 26 y.o. female presenting for evaluation of ITP. Presentation: 26F w/ hx of IBS and Raynaud's phenomenon, presented to an outside hospital with abdominal pain. CT scan was performed which showed questionable colitis. She was also found to have platelets of roughly 56. She was discharged to home, and followed up with her PCP a few days later. Abdominal symptoms continued, and then she was found to have platelets= 14, while other cell lines were normal. She was then admitted to [facility] for urgent treatment of suspected ITP. No previous platelet abnormalities. No history of bleeding. No family history of bleeding. Relevant PMHx/ risk factors: ?? Raynaud's phenomenon Work up ?? Imaging: ?? Colonoscopy (~2015)- normal, no evidence of IBD by direct observation or biospies (per outside report) ?? CT abdomen and pelvis (02/05/17) Wall thickening of descending and rectosigmoid, consistent with infectious or inflammatory colitis ? CT abdomen and pelvis (08/12/15) Mild thickening of the wall of the descending and proximal sigmoid colon. This may be due to decompressed bowel versus nonspecific colitis. ?? Labs: ?? H.Pylori- negative by stool antigen ?? Hep B negative ?? HIV negative ?? MARK+ (1:160), antiDS DNA- negative ?? Biopsy: ?? (02/12) PERIPHERAL BLOOD, SMEAR: Marked thrombocytopenia in an otherwise unremarkable peripheral smear ?? Stage: Treatment Course ?? 02/11/2017- plts= 14: Diagnosis- IVIG + Dexamethasone 40mg x 4 days ?? 02/17- plts= 227 ?? Also had myalgias- ? IVIG side effect vs fibromyalgia. Resolved with 4 days of Dex 4mg daily ?? 03/03- C2D1 of Dex 40mg x 4 days ?? 03/03- Plts= 80 INTERIM HISTORY Today, pt feels very tired. 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 She also had a good day on Thursday, but then developed a bad migraine, requriing a trip to ED. Symptoms resolved with Reglan. No fevers/ chills. Her myalgias have resolved. After doing more research online, pt believes she may have fibromyalgia, which could have been triggered by stress of new ITP diagnosis. 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 QUEtiapine (SEROQUEL) 100 mg Tablet Yes NYSTOP Powder Yes budesonide (ENTOCORT EC) 3 mg Capsule, Delayed & Ext.Release Yes amitriptyline (ELAVIL) 25 mg Tablet Yes dexamethasone (DECADRON) 4 mg Tablet Take 10 tablets by mouth daily. For 4 days, every 21 days Yes pantoprazole (PROTONIX) 40 mg Tablet, Delayed Release (E.C.) Take 1 tablet by mouth daily. Yes PAST MEDICAL HISTORY- reviewed Patient Active Problem List Diagnosis Code ??? Thrombocytopenia D69.6 ??? Acute ITP D69.3 Migraines PAST SURGICAL HISTORY None FAMILY HISTORY- reviewed No ITP or heme disease COMPREHENSIVE REVIEW OF SYSTEMS Besides what is mentioned in the HPI, all other systems are negative PHYSICAL EXAMINATION Vitals: 03/03/17 0917 BP: 115/57 Pulse: 90 Resp: 16 Temp: 36.4 ??C (97.5 ??F) NAD, pleasant, Heart is RRR Lung sounds are CTAB Abd is soft, NT/ ND Lymphadenopathy is not appreciated Joints are not swollen or inflamed There are no gross neurologic deficits Affect and mood are appropriate for the situation There are no appreciable rashes or bruises on skin examined LABORATORY EVALUATION Recent Results (from the past 24 hour(s)) Platelet count Result Value Ref Range Platelets 80 (L) 145 - 357 x10(3)/mcL Plat Immature % 5.6 0.0 - 7.4 % Comprehensive metabolic panel (non-fasting) Result Value Ref Range Glucose Lvl 95 65 - 199 mg/dL BUN 12 8 - 18 mg/dL Creatinine 0.95 0.70 - 1.20 mg/dL Sodium 142 135 - 145 mmol/L Potassium 3.9 3.5 - 5.0 mmol/L Chloride 103 98 - 107 mmol/L CO2 24 22 - 31 mmol/L Anion Gap 15 5 - 15 mmol/L Calcium 9.3 8.5 - 10.5 mg/dL Total Protein 7.4 6.1 - 8.0 gm/dL Albumin 4.4 3.2 - 5.2 gm/dL AST 24 0 - 30 unit/L ALT 29 0 - 30 unit/L Alk Phos 49 40 - 104 unit/L Total Bilirubin 0.5 0.2 - 1.3 mg/dL Estimated GFR >60 >=60 Hemogram Result Value Ref Range WBC 6.1 4.0 - 9.5 x10(3)/mcL RBC 3.87 (L) 4.00 - 5.21 x10(6)/mcL Hemoglobin 12.2 11.7 - 15.5 gm/dL Hematocrit 35.3 (L) 35.7 - 45.8 % MCV 91.2 82.6 - 94.4 fL MCH 31.5 27.1 - 32.0 pg MCHC 34.6 31.7 - 35.0 gm/dL Platelets 80 (L) 145 - 357 x10(3)/mcL RDWSD 43.8 37.0 - 46.0 fL RDWCV 13.3 11.5 - 14.1 % MPV 10.9 7.6 - 12.9 fL nRBC % Auto 0.0 % nRBC Abs Auto 0.000 0.000 - 0.000 x10(3)/mcL Differential, Automated Result Value Ref Range Neutrophils % 51.7 % Neutr Abs (ANC) 3.16 1.70 - 6.10 x10(3)/mcL Lymphocytes % 35.0 % Lymphocytes Abs 2.1 0.9 - 3.2 x10(3)/mcL Monocytes % 6.7 % Monocyte Abs 0.4 0.3 - 0.9 x10(3)/mcL Eosinophils % 5.7 % Eosinophils Abs 0.4 0.0 - 0.4 x10(3)/mcL Basophils % 0.7 % Basophils Abs 0.0 0.0 - 0.1 x10(3)/mcL Immature Gran % 0.20 % Ellie Gran Abs 0.01 0.00 - 0.04 x10(3)/mcL Sedimentation rate Result Value Ref Range Sed Rate 38 (H) 0 - 20 mm/hr CRP, acute inflammation Result Value Ref Range CRP 1.8 <=4.9 mg/L TSH Result Value Ref Range TSH 7.90 (H) 0.27 - 4.20 mlU/ML RADIOGRAPHIC EVALUATION As above PATHOLOGY EVALUATION As above ASSESSMENT: Daniela Gardner is a 26 y.o. female presents with ITP. Unclear trigger. Received IVIG and 4 days of Dex on 02/10, with rapid response, and normalization of platelets. Now on day 22, her platelets have been dropping, which is clearly disappointing to her. The underlying trigger of her ITP has not been discovered. Infectious work up has been negative, and no evidence on imaging or labs of an underlying lymphoproliferative disorder. In the future, I might consider evaluation by Rheumatology for her +MARK and Raynauds, and how these might relate to her ITP. However, at this time, there are no clearly rheumatologic symptoms for evaluation, and the MARK is highly non-specific. We discussed the potential treatment options from here. 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 Ms Gardner in interested in this, as she hopes to not have to worry about her platelets and bleeding again. We discussed the option of switching to Prednisone, with a prolonged taper, but Ms Gardner has intolerable side effects to any steroids, and would prefer to continue the high dose Dex. In addition, platelets trending down today, on day 21 of C1. Her rapid response was most consistentwith the effect of IvIG, which makes me concerned that she may be less responsive to the Dexamathasone. Although she still has a technical respnse, I would like to continue the Dex 40mg x 4 days q 21days x 6 cycles, and also add Rituximab 375mg/ m2 weekly x 4 doses. Today will be C2D1 of Dex. Will set up Rituximab and transfer of care to [facility] for Rituximab treatment. The addition of Rituximab will also increase the chance of fpc remission. Today, we also some of Ms Gardner's fears about her ITP leading to a more aggressive malignancy, such as leukemia. I reassured her that ITP is not related to acute leukemias. Plan ?? Pulse Dex 40mg x 4 days, starting today. ?? Check labs and meet provider at [facility] next week ?? Hopefully schedule Rituximab infusion on day of appt in [facility] Dennys Fajardo MD Pager: [phone] 03/03/2017 documented in this encounter Miscellaneous Notes * Addendum Note - Dennys Fajardo MD - 03/06/2017 8:29 AM EDTAddended by: DENNYS FAJARDO on: 03/06/2017 08:29 AM Modules accepted: Orders documented in this encounter Plan of Treatment Not on file documented as of this encounter Results * Comprehensive metabolic panel (non-fasting) (03/03/2017 8:59 AM EDT) [facility] Glucose 95 65 - 199 mg/dL [facility] Comment:Diabetes: >=200 mg/d L plus symptoms Blood Urea Nitrogen 12 8 - 18 mg/dL [facility] Creatinine 0.95 0.70 - 1.20 mg/dL [facility] Comment: Please note that the pediatric reference intervals supplied above were not validated at [facility]. Results from pediatric patients should be interpreted in conjunction to the patient's age, height and muscle mass. Sodium 142 135 - 145 mmol/L [facility] Potassium 3.9 3.5 - 5.0 mmol/L [facility] Comment: Please note: ??Patients with WBC >100,000 may have falsely elevated Potassium levels. ??For accurate Potassium quantification in these patients send serum separator tube (gold top) for subsequent determinations. ??Contact the Clinical Chemistry Laboratory if there are any questions. Chloride 103 98 - 107 mmol/L [facility] Carbon Dioxide 24 22 - 31 mmol/L [facility] Anion Gap 15 5 - 15 mmol/L [facility] Calcium 9.3 8.5 - 10.5 mg/dL [facility] Protein, Total 7.4 6.1 - 8.0 gm/dL [facility] Albumin 4.4 3.2 - 5.2 gm/dL [facility] Aspartate Aminotransferase 24 0 - 30 unit/L [facility] Alanine Aminotransferase 29 0 - 30 unit/L [facility] Alkaline Phosphatase 49 40 - 104 unit/L [facility] Bilirubin, Total 0.5 0.2 - 1.3 mg/dL [facility] Est Glomerular Filtration Rate >60 >=60 [facility] Comment: This estimated GFR (eGFR) value was calculated using the MDRD equation which has been validated on patients between the ages of 18 and 70. The MDRD should not be used to assess kidney function in patients < 18 years of age or in patients with extremes of body mass, or in patients with acute kidney failure. This value should be multiplied by 1.2 for patients. For further information please copy and paste the following links into your internet browser. [email or web address] Blood specimen (specimen) 03/03/2017 8:59 AM EDT 03/03/2017 9:10 AM EDT Narrative Resulting Agency Comment Spec In Lab Dennys Fajardo MD CHEMISTRY ORDERABL ES [facility] [place] [id number] * (ABNORMAL) Platelet count (03/03/2017 8:59 AM EDT) Platelet 80(L) 145 - 357 x10(3)/mc L [facility] Immature Plt % 5.6 0.0 - 7.4 % [facility] Comment: Limitation of the Immature Platelet Fraction (IPF)-May be less reliable when the platelet count is less than 25a342/uL due to statistical imprecision. The IPF value provides an assessment of the Bone Marrow production status. ??It is useful in differentiating Thrombocytopenia caused by platelet destruction/consumption versus decreased production. It also helps to determine the imminent release of platelets and can be therefore a helpful parameter in Chemotherapy and Bone marrow transplant patients. ELEVATED IPF value: ?? When the bone marrow is in a state of over production such as when increased destruction and consumption are the underlying issue. ?? When the marrow is recovering post chemotherapy or bone marrow transplant. LOW to NORMAL IPF value: ?? When the bone marrow in not responding and is in a decreased state of production. References: [employer] The Clinical Value of the Immature Platelet Fraction (IPF) in Cell Recovery Document Number [id number] 11/2010 [employer] The Role of the Immature Platelet Fraction (IPF) in the Differential Diagnosis of Thrombocytopenia, Document [id number] V011/07/13 P011/09 Blood specimen (specimen) 03/03/2017 8:59 AM EDT 03/03/2017 9:10 AM EDT Narrative Resulting Agency Comment Spec In Lab Dennys Fajardo MD HEMATOLOGY ORDERAB LES [facility] [place] [address] documented in this encounter Visit Diagnoses Diagnosis Acute ITP Immune thrombocytopenic purpura documented in this encounter Care Teams Senior Net Application Developer Relationship Specialty Start Date End Date Presley Santillan MD [address] [place] [address] PCP - General Internal Medicine 02/10/17 documented as of this encounter
--- OUTSIDE RECORDS SUMMARY | 2024-05-03 07:20 | XMS_ITS | Encounter Summary ---
Author Organization [facility] Address [facility] [place] [address] Care Team Providers Care Employee Training Specialist Name Role Phone Presley Santillan MD [...] Expiration Date Visits Re quested Visits Authorized [id number] 1 1 Encounter Details Date Type Department Care Team (Late st Contact Info) Description 06/25/2017 11:00 AM EST - 06/25/2017 12:00 PM EST [place] [address] Marino Smith MD [facility] [place] [address] COLONOSCOPY, DIAGNOSTIC (WRVU 3.26) Social History Tobacco Use Types Packs/Day Years [...] Sign Reading Time Taken Comments Blood Pressure 116/76 06/25/2017 10:31 AM EST Pulse 87 06/25/2017 10:31 AM EST Temperature - - Respiratory Rate 16 06/25/2017 10:31 AM EST Oxygen Saturation 100% 06/25/2017 10:31 AM EST Inhaled Oxygen Concentration - - Weight 68 kg (150 lb) 06/25/2017 10:31 AM EST Height 160 cm (5' 3) 06/25/2017 10:31 AM EST Body Mass Index 26.57 06/25/2017 10:31 AM EST documented in this encounter Discharge Instructions * Discharge Instructions* Karen Wade RN - 06/25/2017 12:32 PM EST Colonoscopy What to expect after the procedure You may feel a little more gassy or bloated than usual. This is normal. You should expect the return of normal bowel function in the 2 to 3 days. Activity Because of the sedation that you received your judgement and reaction time are effected ?? Go home and rest quietly for the remainder of the day. You may resume your normal activities tomorrow. ?? Change from one position to the next slowly. You may lose your balance unexpectedly ?? Be careful on stairs, as you may be unsteady on your feet FOR THE NEXT 24 HRS ?? DO NOT DRIVE OR OPERATE ANY MACHINERY ?? DO NOT DRINK ALCOHOLIC BEVERAGES ?? DO NOT SIGN LEGAL DOCUMENTS ?? If you are a smoker: DO NOT SMOKE WHILE YOU ARE ALONE Diet ?? Start by eating small portions of foods that ordinarily will not upset your stomach . Avoid gas producing foods for the next few days ?? Be gentle with what you choose to start with ?? Drink plenty of fluids ( unless your doctor has told you not to). IV SITE-- slight redness, or tenderness is normal. You can use warm compresses if you become concerned. If the tenderness +/or redness increases or foul drainage and a red streak occurs, please contact your PCP immediately When shoud you call for help? Call 911 anytime you think you may need emergency care. For example If you pass out ( loss of consciousness) If you pass maroon or bloody stools If you have severe belly pain Call your doctor now or seek immediate medical care If your stools are black and tarlike If your stools have streaks of blood, but you did not have a biopsy or any polyps removed If you have belly pain, or your belly is swollen and firm If you vomit If you have a fever If you are very dizzy Watch closely for changes in your health, and be sure to contact your doctor if you have any problems Your doctor will let you know when you will need your next colonoscopy. The results of your test and your risk for colorectal cancer will help your doctor decide how often you need to be checked. Thursday-Thursday Same Day Endo [phone] 7a-8p Otherwise contact [phone] and ask to speak to the stationary engineer supervisor decontaminator Follow up care is a calvillo part of your treatment and safety. Be sure to make and go to all appointments, and call your doctor if you are having problems. Discharge instructions reviewed with patient who expresses understanding documented in this encounter Medications at Time of Discharge Medication Sig Dispensed Refills Start Date End Date SUMAtriptan (IMITREX) 100 mg Tablet Take 100 mg by mouth as needed for Migraine. 04/18/2022 QUEtiapine (SEROQUEL) 100 mg Tablet Take 100 mg by mouth nightly. 01/19/2017 09/23/2017 pantoprazole (PROTONIX) 40 mg Tablet, Delayed Release (E.C.)Indications:Abdomin al pain, unspecified location,Alternating constipation and diarrhea,Gastroesophageal reflux disease, esophagitis presence not specified Take 1 tablet by mouth daily. 30 tablet 3 02/17/2017 09/23/2017 documented as of this encounter H&P Notes * Marino Smith MD - 06/25/2017 10:29 AM EST Patient Name: Daniela Gardner Patient Age: 26 y.o. 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 History of chronic constipation, question of colitis in past vs incomplete distension of colon. Patient Active Problem List Diagnosis Code ??? 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 Zofran Odt [Ondansetron] Other (See Comments) MAKES ME RESTLESS ??? [place] Other (See Comments) Abdominal pain ??? Cis [...] EDH. No changes Exam: Most Recent Vitals: 06/25/17 1031 BP: 116/76 Pulse: 87 Resp: 16 SpO2: 100% GEN: NAD, AAOX3 HEENT: NC/AT dryMM, anicteric Chest: CTAB Heart: RRR, nl s1, s2 Abdomen: normal bowel sounds, soft, non tender Assessment and Plan: Proceed with EGD: Colonoscopy: ASA Grade: ASA 2 - Patient with mild systemic disease with no functional limitations Mallampati: I (soft palate, uvula, fauces, tonsillar pillars visible) Sedation plan: Monitored Anesthesia Care Risks and benefits of the procedure were discussed with the patient. Consent has been signed. documented in this encounter Plan of Treatment Not on file documented as of this encounter Procedures Procedure Name Priority Date/Time Associated Diagnosis Comments SPECIMEN TO PATHOLOGY Routine 06/25/2017 12:18 PM EST SPECIMEN TO PATHOLOGY Routine 06/25/2017 12:18 PM EST SPECIMEN TO PATHOLOGY Routine 06/25/2017 12:18 PM EST SPECIMEN TO PATHOLOGY Routine 06/25/2017 12:18 PM EST SPECIMEN TO PATHOLOGY Routine 06/25/2017 12:18 PM EST SURGICAL PATHOLOGY REPORT Routine 06/25/2017 12:17 PM EST EGD, UPPER GI ENDOSCOPY (WRVU 2.09) 06/25/2017 11:34 AM EST Alternating constipation and diarrhea Abdominal pain, unspecified location COLONOSCOPY, DIAGNOSTIC (WRVU 3.26) 06/25/2017 11:34 AM EST Alternating constipation and diarrhea Abdominal pain, unspecified location UPPER GI ENDOSCOPY Routine 06/25/2017 11 :27 AM EST COLONOSCOPY Routine 06/25/2017 11:25 AM EST documented in this encounter Results * Specimen to Pathology (surgical or derm) (06/25/2017 12:18 PM EST) AP Specimen 06/25/2017 12:1 8 PM EST 06/25/2017 1:20 PM EST Narrative [facility] - 06/25/2017 1:20 PM EST Specimen requisition ordered. ??Separate Pathology report to follow Resulting Agency Comment Spec In Lab Marino Smith MD PATHOLOGY/CYTOLOG Y ORDERABLES Performing Organization Address City/[facility]/ZIP Co de Phone Number [facility] [place] [address] * Specimen to Pathology (surgical or derm) (06/25/2017 12:18 PM EST) AP Specimen 06/25/2017 12:1 8 PM EST 06/25/2017 1:20 PM EST Narrative [facility] - 06/25/2017 1:20 PM EST Specimen requisition ordered. ??Separate Pathology report to follow Resulting Agency Comment Spec In Lab Marino Smith MD PATHOLOGY/CYTOLOG [place] [address] * Specimen to Pathology (surgical or derm) (06/25/2017 12:18 PM EST) AP Specimen 06/25/2017 12:1 8 PM EST 06/25/2017 1:20 PM EST Narrative [facility] - 06/25/2017 1:20 PM EST Specimen requisition ordered. ??Separate Pathology report to follow Resulting Agency Comment Spec In Lab Marino Smith MD PATHOLOGY/CYTOLOG Y ORDERABLES Performing Organization Address [facility]/[place] [address] * Specimen to Pathology (surgical or derm) (06/25/2017 12:18 PM EST) AP Specimen 06/25/2017 12:1 8 PM EST 06/25/2017 1:20 PM EST Narrative [facility] - 06/25/2017 1:20 PM EST Specimen requisition ordered. ??Separate Pathology report to follow Resulting Agency Comment Spec In Lab Marino Smith MD PATHOLOGY/CYTOLOG Y ORDERABLES Performing Organization Address [facility]/[place] [address] * Specimen to Pathology (surgical or derm) (06/25/2017 12:18 PM EST) AP Specimen 06/25/2017 12:1 8 PM EST 06/25/2017 1:20 PM EST Narrative [facility] - 06/25/2017 1:20 PM EST Specimen requisition ordered. ??Separate Pathology report to follow Resulting Agency Comment Spec In Lab Marino Smith MD PATHOLOGY/CYTOLOG Y ORDERABLES Performing Organization Address [facility]/[place] [address] * Surgical Pathology Report (06/25/2017 12:17 PM EST) Final Diagnosis [id number] ? Location: 4T; EA09; A The signing pathologist has (i) examined the relevant preparation(s) for the specimen(s) and (ii) rendered or confirmed the diagnosis(es). . ?Surgical Pathology DIAGNOSIS A - Duodenum, focal erosion, ?? biopsy: - ??Duodenal mucosa, negative for diagnostic abnormality ??. B - Antrum and body, ?? biopsy: - Gastric antrum-type and body/fundic-typ e mucosa, negative for diagnostic abnormality. C - Right colon, ??biopsy: - Colonic mucosa, negative for diagnostic abnormality. D - Descending colon, ?? biopsy: - Colonic mucosa, negative for diagnostic abnormality. E - Sigmoid colon, ??biopsy: - Colonic mucosa, negative for diagnostic abnormality. CR-PX Electronically signed by: ??David Oshea MD Verified: ??06/26/2017 ?Pathologist Performed at: ??-[facility] [place], [place], [place] CLINICAL INFORMATION Specimen Submitted: A - Duodenum 2 focal errosions owise normal B - Gastric antrum and body normal mucosa for history C - Right colon ??ascending and transvrese ?? otherwise normal D - Descending colon normal mucosa for histology E - Sigmoid colon mucosa minimally congested Clinical History: Chronic diarrhea abdominal pain Clinical Diagnosis: Same SPECIMEN PROCESSING A - Labeled/Fixativ e: Duodenum focal erosions, formalin. Quantity/Size: Six, 0.3-0.4 cm. Tissue Description: ??Soft, ku-pink tissue ??. Sections/Proces sing: (T2) B - Labeled/Fixativ e: Gastric antrum and body, formalin. Quantity/Size: Four, 0.2-0.3 cm. Tissue Description: ??Soft, ku-pink tissue ??. Sections/Proces sing: (T1) C - Labeled/Fixativ e: Right colon, formalin. Quantity/Size: Seven, 0.2-0.3 cm. Tissue Description: ??Soft, ku-pink tissue ??. Sections/Proces sing: (T2) D - Labeled/Fixativ e: Descending colon, formalin. . SPECIMEN PROCESSING Quantity/Size: Three, averaging 0.3 cm. Tissue Description: ??Soft, ku-pink tissue ??. Sections/Proces sing: (T1) E - Labeled/Fixativ e: Sigmoid colon, formalin. Quantity/Size: Three, 0.3-0.4 cm. Tissue Description: ??Soft, ku-pink tissue ??. Sections/Proces sing: (T1) ??ejr 06/26/2017 4:03 PM EST [facility] GI Biopsy 06/25/2017 12:1 7 PM EST 06/25/2017 12:17 PM EST GI Biopsy 06/25/2017 12:1 7 PM EST 06/25/2017 12:17 PM EST GI Biopsy 06/25/2017 12:1 7 PM EST 06/25/2017 12:17 PM EST GI Biopsy 06/25/2017 12:1 7 PM EST 06/25/2017 12:17 PM EST GI Biopsy 06/25/2017 12:1 7 PM EST 06/25/2017 12:17 PM EST Marino Smith MD PATHOLOGY/CYTOLOG Y ORDERABLES Performing Organization Address City/State/[place] Co de Phone Number [facility] [place] [address] * UPPER GI ENDOSCOPY (06/25/2017 11:27 AM EST) UPPER GI ENDOSCOPY [facility] Endoscopy Procedure Date: 06/25/2017 11:27 AM ? Patient Name: Daniela Gardner ? N: [id number] ? Date of : 1990 ? Age: 26 ? Order #: [id number] ? Instrument Name: [id number] ? Procedure: ? Upper GI endoscopy Indications: ? Upper abdominal pain, Diarrhea Providers: ? Marino Smith MD, Teresa Hartmann, ? RN, Lashawn Patterson MD: ?Presley Santillan MD Requesting Provider: Litzy Barron MD Medicines: ? Propofol per Anesthesia Complications: ? No immediate complications. Procedure: ? Pre-Anesthesia Assessment: ? - Prior [...] and ? adverse medication reactions. The ? Endoscope was introduced through the ? mouth, and advanced to the third part ? of duodenum. The patient tolerated ? the procedure well. The upper GI ? endoscopy was accomplished without ? difficulty. The patient tolerated the ? procedure well. ? Findings: ? The examined esophagus was normal. ? The Z-line was regular and was found 37 cm from the ? incisors. ? The stomach was normal. Biopsies were taken with a ? cold forceps for histology. ? There were two focal superficial erosions in the ? duodenal bulb. The examined duodenum was otherwise ? normal with normal appearing villi. Biopsies were ? taken with a cold forceps for histology from the ? duodenal bulb and second/third portion. ? Moderate Sedation: ? Not applicable - See Anesthesia documentation Impression: ?- Normal esophagus. ? - Z-line regular, 37 cm from the ? incisors. ? - Normal stomach. Biopsied. ? - Two focal superficial erosions in ? duodenal bulb. Otherwise normal ? examined duodenum. Biopsied. Recommendation: ?- Await pathology results. ? - Proceed with colonoscopy. ? - Avoid/minimize NSAIDs such as ? Ibuprofen (Advil/Motrin) and Naproxen ? (Aleve). ? Attending Participation: ? I personally performed the entire procedure. ? Dr. Dima Smith ____ Marino Smith MD 06/25/2017 11:56:20 AM Number of Addenda: 0 Note Initiated On: 06/25/2017 11:27 AM PROVATION 06/25/2017 11:2 7 AM EST Presley Santillan MD GENERAL SURGICAL ORD ERABLES PROVATION * COLONOSCOPY (06/25/2017 11:25 AM EST) COLONOSCOPY [facility] Endoscopy Procedure Date: 06/25/2017 11:25 AM ? Patient Name: Daniela Gardner ? N: [id number] ? Date of : 1990 ? Age: 26 ? Order #: [id number] ? Instrument Name: [id number] ? Procedure: ? Colonoscopy Indications: ? Upper abdominal pain, Clinically ? significant diarrhea of unexplained ? origin Patient Profile: ? This is a 26 year old female. Refer ? to note in patient chart for ? documentation of history and physical. Providers: ? Marino Smith MD, Teresa Hartmann, ? RN, Lashawn Pryor Referring MD: ?Presley Santillan MD Requesting Provider: Litzy Barron MD Medicines: ? Monitored Anesthesia Care Complications: ? No immediate complications. Procedure: ? Pre-Anesthesia Assessment: ? - Prior [...] patient tolerated the ? procedure well. The quality of the ? bowel preparation was evaluated using ? the BBPS ([place] Bowel Preparation ? Scale) with scores of: Right Colon = ? 2 (minor amount of residual staining, ? small fragments of stool and/or ? opaque liquid, but mucosa seen well), ? Transverse Colon = 3 (entire mucosa ? seen well with no residual staining, ? small fragments of stool or opaque ? liquid) and Left Colon = 3 (entire ? mucosa seen well with no residual ? staining, small fragments of stool or ? opaque liquid). The total BBPS score ? equals 8. The quality of the bowel ? preparation was good. The terminal ? ileum, ileocecal valve, appendiceal ? orifice, and rectum were ? photographed. Scope withdrawal time ? was 15 minutes. ? Findings: ? The perianal and digital rectal examinations were ? normal. ? An area of mildly congested mucosa with patchy mild ? mucosal erythema was found in the sigmoid colon. ? There was no evidence of ulceration or mucosal ? inflammation. Biopsies were taken with a cold forceps ? for histology in the sigmoid colon. ? The entire examined colon appeared otherwise normal. ? Biopsies were taken with a cold forceps for histology ? from the right colon (ascending/transv erse) and ? descending colon. ? The terminal ileum appeared normal. ? The exam was otherwise without abnormality on direct ? and retroflexion views. ? Moderate Sedation: ? Not applicable - See Anesthesia documentation Impression: ?- Congested mucosa with patchy ? erythema in the sigmoid colon. ? Otherwise normal without ? inflammation. Biopsied. ? - The entire examined colon is ? otherwise normal. Biopsied. ? - The examined portion of the ileum ? was normal. ? - The examination was otherwise ? normal on direct and retroflexion ? views. Recommendation: ?- Await pathology results. ? - Follow-up in GI clinic as scheduled. ? Attending Participation: ? I personally performed the entire procedure. ? Dr. Dima Smith ____ Marino Smith MD 06/25/2017 12:44:00 PM Number of Addenda: 0 Note Initiated On: 06/25/2017 11:25 AM PROVATION 06/25/2017 11:2 5 AM EST Presley Santillan MD GENERAL SURGICAL ORD ERABLES PROVATION documented in this encounter Visit Diagnoses Diagnosis Alternating constipation and diarrhea Other symptoms involving digestive system Abdominal pain, unspecified location documented in this encounter Administered Medications Inactive Administered Medications - up to 3 most recent administrations Medication Order MAR Action Action Date Dose Rate Site promethazine (PHENERGAN) injection 6.25 mg 6.25 mg, Intravenous, ONCE, On Dionne 06/25/17 at 1100, 1 dose, VESICANT - Dilute with a minimum of 10 mL saline. LARGE VEIN only. Inject over 10 minutes into the farthest port of a running IV infusion. Remain with the patient and STOP infusion immediately if patient reports burning. Avoid extravasation. Given 06/25/2017 10:51 AM EST 6.25 mg documented in this encounter Active and Recently Administered Medications Times are shown in EST. Scheduled Medication Order 06/23/2017 06/24/2017 06/25/2017 promethazine (PHENERGAN) injection 6.25 mg (COMPLETED) 6.25 mg, Intravenous, ONCE, On Dionne 06/25/17 at 1100, 1 dose, VESICANT - Dilute with a minimum of 10 mL saline. LARGE VEIN only. Inject over 10 minutes into the farthest port of a running IV infusion. Remain with the patient and STOP infusion immediately if patient reports burning. Avoid extravasation. 1051 (Given - Provid er: Melanie Velasquez, HESHAM)1100 (Due) Continuous Medication Order 06/23/2017 06/24/2017 06/25/2017 lactated Ringers infusion (CANCELED) 100 mL/hr, Intravenous, CONTINUOUS, Starting on Dionne 06/25/17 at 1045, Until Dionne 06/25/17 at 1306, Endoscopy (Day of Procedure) 1030 (New Bag - Prov ider: Zaira Velasquez CRNA - Comment: Started by pre-op RN)1130 (Anesthesia Volume Adjustment - Provider: Zaira Velasquez CRNA)1220 (Anesthesia Volume Adjustment - Provider: Zaira Velasquez CRNA) documented in this encounter Care Teams Employee Training Specialist Relationship Specialty Start Date End Date Presley Santillan MD [address] [place] [address] PCP - General Internal Medicine 02/10/17 documented as of this encounter
--- OUTSIDE RECORDS SUMMARY | 2024-05-03 07:20 | XMS_ITS | Encounter Summary ---
Author Organization [facility] [address] Care Team Providers Care Crab Backer Name Role Phone Presley Santillan MD Primary Care Provider Reason for Visit * Reason Onset Date Comments Labs Only 03/18/2017 Lab Tracking Encounter Details Date Type Department Care Team (Late st Contact Info) Description 03/18/2017 Telephone Hematology/Oncology at [address] [phone] Nolberto Monrael RN Labs Only (Lab Tracking) Social History [...] Telephone Encounter - Nolberto Monreal RN - 03/18/2017 8:45 AM EDT LAB TRACKING Daniela Gardner [id number] Diagnosis: ITP Labs ordered: weekly CBC Medications: Dex 40mg x 4 days Rituxan infusions x4 Date WBC HGB/HCT PLT ANC PLAN LABS 03/16/17 11.79 12.1/34.8 129k 8.18 2nd Rituxan given 03/18 [facility] 03/2403/06/17 11.59 11.8/35.4 166k 9.67 1st rituxan given 03/11 [facility] 03/16 documented in this encounter Plan of Treatment Not on file documented as of this encounter Visit Diagnoses Not on filedocumented in this encounter Care Teams Crab Backer Relationship Specialty Start Date End Date Presley Santillan MD [address] [place] [address] PCP - General Internal Medicine 02/10/17 documented as of this encounter
--- OUTSIDE RECORDS SUMMARY | 2024-05-03 07:20 | XMS_ITS | Encounter Summary ---
Author Organization [facility] [place] [address] Care Team Providers Care Enterprise Systems Administrator Name Role Phone Presley Santillan MD Primary Care Provider Reason for Visit * Reason Comments Chemotherapy # 2 of 4 * Treatment/Therapy Plan Authorization (Routine) - Closed Specialty Diagnoses / Procedures Referred By Contac t Referred To Contact Hematology and Oncology Diagnoses Acute ITP Immune thrombocytopenic purpura Procedures TC RITUXIMAB, 100MG, INJECTION (RITUXAN) Yovani Fajardo MD [facility] [address] HEMATOLOGY [place] [address] [facility] [address] [place] [address] Referral ID Status Reason Start Date Expiration Date Visits Re quested Visits Authorized [id number] Closed 03/06/2017 03/06/2018 52 52 Encounter Details Date Type Department Care Team (Late st Contact Info) Description 03/18/2017 8:30 AM EDT Infusion Hematology Oncology at [address] [phone] Acute ITP Social History Tobacco Use Types Packs/Day Years Used Date Smoking Tobacco: Former Cigarettes 0 02/17/2010 - 02/17/2011 Smokeless Tobacco: Never Comments:quit years ago Sex and Gender Information Value Date Recorded Sex Assigned at Not on file Gender Identity Not on file Sexual Orientation Not on file documented as of this encounter Progress Notes * Celeste Posada RN - 03/18/2017 8:30 AM EDT INFUSION THERAPY ADMINISTRATION NOTES DIAGNOSIS: ITP REASON FOR VISIT: Rituxan ( given at Second time rate) Treatment # 2 SUBJECTIVE Daniela Gardner offers no complaints. OBJECTIVE LAB DATA: Platelet Count 129 IV ACCESS: Peripheral IV L Cephalic. Discontinued prior to discharge REACTIONS (DESCRIPTION, TIME, INTERVENTION AND EFFECTIVENESS) Daniela Gardner was awake, alert and tolerated treatment well. PLAN Return to clinic per routine. documented in this encounter Plan of Treatment Not on file documented as of this encounter Visit Diagnoses Diagnosis Acute ITP Immune thrombocytopenic purpura documented in this encounter Administered Medications Inactive Administered Medications - up to 3 most recent administrations Medication Order MAR Action Action Date Dose Rate Site acetaminophen (TYLENOL) tablet 650 mg 650 mg, Oral, ONCE, 1 dose, On Thu03/18/17 at 0830, Maximum dose of acetaminophen is 4000 mg from all sources in 24 hours., Routine Given 03/18/2017 9:05 AM EDT 650 mg dexamethasone (DECADRON) injection 10 mg 10 mg, Intravenous, ONCE, 1 dose, On Thu03/18/17 at 0830 Given 03/18/2017 9:05 AM EDT 10 mg diphenhydrAMINE (BENADRYL) capsule 50 mg 50 mg, Oral, ONCE, 1 dose, On Thu03/18/17 at 0830, Routine Given 03/18/2017 9:03 AM EDT 50 mg LORazepam (ATIVAN) tablet 0.5 mg 0.5 mg, Oral, EVERY 1 HOUR PRN, Starting on Thu03/18/17 at 0836, Until Thu03/18/17 at 1653, Anxiety, Nausea, Vomiting, If multiple antiemetics are ordered, use in the following sequence: Ondansetron>Prochlorperazine or Promethazine>Lorazepam>Metoclopram jojo, Routine Given 03/18/2017 9:04 AM EDT 0.5 mg riTUXimab (RITUXAN) 600 mg in sodium chloride 0.9% 300 mL infusion 600 mg, Intravenous, ONCE, 1 dose, On Thu03/18/17 at 0830, Dose 1 of 4 New Bag 03/18/2017 9:46 AM EDT 600 mg documented in this encounter Care Teams Enterprise Systems Administrator Relationship Specialty Start Date End Date Presley Santillan MD [address] [place] [address] PCP - General Internal Medicine 02/10/17 documented as of this encounter
--- OUTSIDE RECORDS SUMMARY | 2024-05-03 07:20 | XMS_ITS | Encounter Summary ---
Author Organization [facility] [place] [address] Care Team Providers Care Circular Distributor Name Role Phone Presley Santillan MD Primary Care Provider Reason for Visit * Reason Onset Date Comments Labs Only 03/24/2017 Lab Tracking Encounter Details Date Type Department Care Team (Late st Contact Info) Description 03/24/2017 Telephone Hematology Oncology at [address] [phone] Carlita Hoskins RN Labs Only [...] Telephone Encounter - Carlita Hoskins RN - 03/24/2017 1:23 PM EDT LAB TRACKING Daniela Gardner [id number] Diagnosis: ITP Labs ordered: weekly CBC Medications: Dex 40mg x 4 days Start Cycle #3 on 03/24 Rituxan infusions x4 Date WBC HGB/HCT PLT ANC PLAN LABS 03/24/17 7.87 12/34.9 120k 5.13 3rd rituxan due 03/25 Labs again 03/31/17 03/16/17 11.79 12.1/34.8 129k 8.18 2nd Rituxan given 03/18 [facility] 03/2403/06/17 11.59 11.8/35.4 166k 9.67 1st rituxan given 03/11 [facility] 03/16 documented in this encounter Plan of Treatment Not on file documented as of this encounter Visit Diagnoses Not on filedocumented in this encounter Care Teams Circular Distributor Relationship Specialty Start Date End Date Presley Santillan MD [address] [place] [address] PCP - General Internal Medicine 02/10/17 documented as of this encounter
--- OUTSIDE RECORDS SUMMARY | 2024-05-03 07:20 | XMS_ITS | Encounter Summary ---
Author Organization [facility] [place] [address] Care Team Providers Care Sql Server Developer Name Role Phone Presley Santillan MD Primary Care Provider [phone] Encounter Details Date Type Department Care Team (Late st Contact Info) Description 06/23/2017 Telephone Hematology/Oncology at [address] [phone] Yusra Troy Social History Tobacco Use Types Packs/Day Years Used Date Smoking Tobacco: Former Cigarettes 0 02/17/2010 - 02/17/2011 Smokeless Tobacco: Never Comments:quit years ago Sex and Gender Information Value Date Recorded Sex Assigned at Not on file Gender Identity Not on file Sexual Orientation Not on file documented as of this encounter Miscellaneous Notes * Telephone Encounter - Yusra Troy - 06/23/2017 11:14 AM EST Daniela just called and asked if we could keep an eye out for her labs and call her with the results. documented in this encounter Plan of Treatment Not on file documented as of this encounter Visit Diagnoses Not on filedocumented in this encounter Care Teams Sql Server Developer Relationship Specialty Start Date End Date Presley Santillan MD [address] [place] [address] PCP - General Internal Medicine 02/10/17 documented as of this encounter
--- OUTSIDE RECORDS SUMMARY | 2024-05-03 07:20 | XMS_ITS | Encounter Summary ---
Author Organization [facility] [place] [address] Care Team Providers Care Land Development Manager Name Role Phone Presley Santillan MD Primary Care Provider [phone] Reason for Visit * Reason Onset Date Comments Labs Only 08/31/2017 lab tracking Encounter Details Date Type Department Care Team (Late st Contact Info) Description 08/31/2017 Telephone Hematology/Oncology at [address] [phone] Anamaria Lamas RN Labs Only [...] Telephone Encounter - Anamaria Lamas RN - 08/31/2017 9:57 AM EST LAB TRACKING Yaneth Gardner [id number] Diagnosis: ITP Labs ordered: every 4 weeks [...] she is well without any bleeding issues. Plan:Labs normal reviewed with Angeli Dao PAPER GLUING OPERATOR, labs again in 4 weeks. Results for YANETH GARDNER ( ) as of 08/31/2017 10:00 Ref. Range 08/26/2017 00:00 WBC Unknown 6.34 Hemoglobin Unknown 13.4 Hematocrit Unknown 38.6 Platelets Unknown 195 Neutr Abs (ANC) Unknown 3.51 Date WBC HGB/HCT PLT ANC PLAN LABS 07/31/17 8.59 12.8/38.0 201k 6.04 Patient has been under the weather. Labs again first week of August. 07/07/17 8.24 12.5/36.7 237k 5.45 Had bruising on knees and elbows [facility] 07/28/18 06/01/17 7.27 12.2/36.4 209k 3.86 Stopped dex [facility] 06/30/16 05/25/17 8.15 12.2/35.5 153k 5.21 Dex 40 mg 05/25-05/28 [facility] 06/1505/04/17 7.77 12.4/36.3 153k 4.74 Dex 40 mg 05/04-05/07 [facility] 05/2504/20/17 10.15 12.6/35.2 175k 5.67 Completed 4 days of dex 04/16/17 [facility] 05/04/17 04/10/17 10.44 12.3/36.1 112k 7.26 4ht cycle dex start 04/13. Prior to vs with Dr Whitfield on 04/2203/30/17 9.57 12.7/36.1 206k 5.04 4th Rituxan due03/31 Labs again on 04/0703/24/17 7.87 12/34.9 120k 5.13 3rd rituxan due 03/25 Labs again 03/31/17 03/16/17 11.79 12.1/34.8 129k 8.18 2nd Rituxan given 03/18 [facility] 03/2403/06/17 11.59 11.8/35.4 166k 9.67 1st rituxan given 03/11 [facility] 03/16 documented in this encounter Plan of Treatment Not on file documented as of this encounter Procedures Procedure Name Priority Date/Time Associated Diagnosis Comments CBC (WITH DIFF) Routine 08/26/2017 documented in this encounter Results * CBC (with Diff) (08/26/2017) White Blood Cell 6.34 Hemoglobin 13.4 Hematocrit 38.6 Platelet 195 Neutrophil Absolute (ANC) - Automated 3.51 Blood specimen (specimen) 08/26/2017 Historical Provider HEMATOLOGY ORDERA BLES documented in this encounter Visit Diagnoses Not on filedocumented in this encounter Care Teams Land Development Manager Relationship Specialty Start Date End Date Presley Santillan MD [address] [place] [address] PCP - General Internal Medicine 02/10/17 documented as of this encounter
--- OUTSIDE RECORDS SUMMARY | 2024-05-03 07:20 | XMS_ITS | Encounter Summary ---
Author Organization [facility] Address [facility] [place] [address] Care Team Providers Care Size Marker Name Role Phone Presley Santillan MD Primary [...] Expiration Date Visits Re quested Visits Authorized [id number] 1 1 Encounter Details Date Type Department Care Team (Latest Contact Info) Description 06/25/2017 9:45 AM EST - 06/25/2017 1:34 PM EST Hospital Encounter [place] [address] Sara Siddiqui MD [facility] [place] [address] Discharge Disposition: Home Social History Tobacco Use [...] Sign Reading Time Taken Comments Blood Pressure 103/65 06/25/2017 12:45 PM EST Pulse 87 06/25/2017 10:31 AM EST Temperature - - Respiratory Rate 18 06/25/2017 12:32 PM EST Oxygen Saturation 100% 06/25/2017 12:50 PM EST Inhaled Oxygen Concentration - - [...] to be checked. Thursday-Thursday Same Day Endo [phone]-8p Otherwise contact [phone] and ask to speak to the die trimmer commissioned sales associate Follow up care is a [place] part [...] Other (See Comments) MAKES ME RESTLESS ??? [place] Other (See Comments) Abdominal pain ??? Cis [...] PM EST 06/25/2017 1:20 PM EST Narrative [facility] - 06/25/2017 1:20 PM EST Specimen requisition ordered. ??Separate Pathology report to follow Resulting Agency Comment Spec In Lab Marino Smith MD PATHOLOGY/CYTOLOG Y ORDERABLES Performing Organization Address City/[facility]/ZIP Co de Phone Number [facility] [place] [address] * Specimen to Pathology (surgical or derm) (06/25/2017 12:18 PM EST) AP Specimen 06/25/2017 12:1 8 PM EST 06/25/2017 1:20 PM EST Narrative [facility] - 06/25/2017 1:20 PM EST Specimen requisition ordered. ??Separate Pathology report to follow Resulting Agency Comment Spec In Lab Marino Smith MD PATHOLOGY/CYTOLOG Y ORDERABLES Performing Organization Address City/[facility]/[place] [address] * Specimen to Pathology (surgical or derm) (06/25/2017 12:18 PM EST) AP Specimen 06/25/2017 12:1 8 PM EST 06/25/2017 1:20 PM EST Narrative [facility] - 06/25/2017 1:20 PM EST Specimen requisition ordered. ??Separate Pathology report to follow Resulting Agency Comment Spec In Lab Marino Smith MD PATHOLOGY/CYTOLOG Y ORDERABLES Performing Organization Address [facility] [place] [address] * Specimen to Pathology (surgical or derm) (06/25/2017 12:18 PM EST) AP Specimen 06/25/2017 12:1 8 PM EST 06/25/2017 1:20 PM EST Narrative [facility] - 06/25/2017 1:20 PM EST Specimen requisition ordered. ??Separate Pathology report to follow Resulting Agency Comment Spec In Lab Marino Smith MD PATHOLOGY/CYTOLOG Y ORDERABLES Performing Organization Address [facility] [place] [address] * Specimen to Pathology (surgical or derm) (06/25/2017 12:18 PM EST) AP Specimen 06/25/2017 12:1 8 PM EST 06/25/2017 1:20 PM EST Narrative [facility] - 06/25/2017 1:20 PM EST Specimen requisition ordered. ??Separate Pathology report to follow Resulting Agency Comment Spec In Lab Marino Smith MD PATHOLOGY/CYTOLOG Y ORDERABLES Performing Organization Address [facility] [place] [address] * Surgical Pathology Report (06/25/2017 12:17 PM EST) Final Diagnosis [id number] ? Location: 4T; EA09; A The signing [...] Oshea MD Verified: ??06/26/2017 ?Pathologist Performed at: ??-[facility] Dept. of Pathology, [place], [place] CLINICAL INFORMATION Specimen Submitted: A - [...] sing: (T1) ??ejr 06/26/2017 4:03 PM EST [facility] GI Biopsy 06/25/2017 12:1 7 [...] PATHOLOGY/CYTOLOG Y ORDERABLES [facility] [place] [address] * UPPER GI ENDOSCOPY (06/25/2017 11:27 AM EST) UPPER GI ENDOSCOPY [facility] Endoscopy Procedure Date: 06/25/2017 11:27 AM ? Patient Name: Daniela Gardner ? N: [id number] ? Date of : 1990 ? Age: 26 ? Order #: [id number] ? Instrument Name: [id number] ? Procedure: ? Upper GI endoscopy Indications: [...] * COLONOSCOPY (06/25/2017 11:25 AM EST) COLONOSCOPY [facility] Endoscopy Procedure Date: 06/25/2017 11:25 AM ? Patient Name: Daniela Gardner ? N: [id number] ? Date of : 1990 ? Age: 26 ? Order #: [id number] ? Instrument Name: [id number] ? Procedure: ? Colonoscopy Indications: ? Upper [...] preparation was evaluated using ? the BBPS ([place] Bowel Preparation ? Scale) with scores of: [...] extravasation. 1051 (Given - Provid er: Melanie Velasquez RN)1100 (Due) Continuous Medication Order 06/23/2017 06/24/2017 06/25/2017 [...] CRNA) documented in this encounter Care Teams Size Marker Relationship Specialty Start Date End Date Presley Santillan MD [address] [place] [address] PCP - General Internal Medicine 02/10/17 documented as of this encounter
--- OUTSIDE RECORDS SUMMARY | 2024-05-03 07:20 | XMS_ITS | Encounter Summary ---
Author Organization [facility] [place] [address] Care Team Providers Care Prosthodontist/Educator Name Role Phone Presley Santillan MD Primary Care Provider Reason for Visit * Reason Onset Date Comments Labs Only 04/22/2017 lab tracking Encounter Details Date Type Department Care Team (Late st Contact Info) Description 04/22/2017 Telephone Hematology/Oncology at [address] [phone] Anamaria Lamas RN Labs Only [...] Telephone Encounter - Anamaria Lamas RN - 04/22/2017 3:43 PM EDT LAB TRACKINGSpoke with patient who reports that she is having bruising which started 2 days ago. Denies bleeding.Asked to have cbc done early. Starts 4 cycle of dex on Thursday. Daniela Sharon Gardner [id number] Diagnosis: ITP Labs ordered: every 3 weeks CBC (and PRN if pt wants to see one , she will let us know she went to lab she realizes we may not get back to her for a few days with results) Medications: Dex 40mg x 4 days every 3 weeks Rituxan infusions x4 (03/11/17-04/01/17) Assessment saw Dr. Whitfield in clinic today Plan dex 40 mg daily for 4 days every 3 weeks with labs Date WBC HGB/HCT PLT ANC PLAN LABS 04/20/17 10.15 12.6/35.2 175k 5.67 Completed 4 days of dex 04/16/17 [facility] 05/04/17 04/10/17 10.44 12.3/36.1 112k 7.26 4ht cycle dex start 04/13. Prior to vs with Dr Whitfield on 04/2203/30/17 9.57 12.7/36.1 206k 5.04 4th Rituxan due03/31 Labs again on 04/0703/24/17 7.87 12/34.9 120k 5.13 3rd rituxan due 03/25 Labs again 03/31/17 03/16/17 11.79 12.1/34.8 129k 8.18 2nd Rituxan given 03/18 [facility] 03/2403/06/17 11.59 11.8/35.4 166k 9.67 1st rituxan given 03/11 [facility] 03/16 documented in this encounter Plan of Treatment Not on file documented as of this encounter Visit Diagnoses Not on filedocumented in this encounter Care Teams Prosthodontist/Educator Relationship Specialty Start Date End Date Presley Santillan MD [address] [place] [address] PCP - General Internal Medicine 02/10/17 documented as of this encounter
--- OUTSIDE RECORDS SUMMARY | 2024-05-03 07:20 | XMS_ITS | Encounter Summary ---
Author Organization [facility] [place] [address] Care Team Providers Care Button Grader Name Role Phone Presley Santillan MD Primary Care Provider Reason for Visit * Diagnostic Test (Routine) - Closed Specialty Diagnoses / Procedures Referred By Contac t Referred To Contact Radiology Diagnoses Alternating constipation and diarrhea Abdominal pain, unspecified location Procedures MRI Enterography wwo Contrast Litzy Barron APRN [facility] [place] [address] [place] [address] Referral ID Status Reason Start Date Expiration Date V isits Requested Visits Authorized [id number] Closed Specialty Service Requested 04/06/2017 06/04/2017 1 1 Encounter Details Date Type Department Care Team (Latest Contact Info) Description 04/17/2017 10:28 AM EDT - 04/17/2017 11:59 PM EDT Hospital [place] [address] Litzy Barron APRN [facility] [place] [address] Discharge Disposition: Home Social History Tobacco Use [...] Sig Dispensed Refills Start Date End Date sertraline (ZOLOFT) 25 mg TabletIndications:Mood Swings Take 100 mg by mouth daily. Indications: Mood Swings 06/25/2017 dexamethasone (DECADRON) 4 mg Tablet Take 10 tablets by mouth daily. For 4 days, every 21 days 40 tablet 3 03/18/2017 06/03/2017 diaZEPam (VALIUM) 5 mg Tablet Take 2.5 mg by mouth nightly. 06/03/2017 multivitamin (THERAGRAN) Tablet Take 1 tablet by mouth daily. 04/22/2017 levothyroxine (SYNTHROID) 25 mcg Tablet Take 25 mcg by mouth daily. 06/03/2017 SUMAtriptan (IMITREX) 100 mg Tablet Take 100 mg by mouth as needed for Migraine. 04/18/2022 QUEtiapine (SEROQUEL) 100 mg Tablet Take 100 mg by mouth nightly. 01/19/2017 09/23/2017 pantoprazole (PROTONIX) 40 mg Tablet, Delayed Release (E.C.)Indications:Abdomi nal pain, unspecified location,Alternating constipation and diarrhea,Gastroesophagea l reflux disease, esophagitis presence not specified Take 1 tablet by mouth daily. 30 tablet 3 02/17/2017 09/23/2017 documented as of this encounter Plan of Treatment Not on file documented as of this encounter Procedures Procedure Name Priority Date/Time Associated Diagnosis Comments MRI ENTEROGRAPHY WITH/WO CONTRAST Routine 04/17/2017 5:00 PM EDT Alternating constipation and diarrhea Abdominal pain, unspecified location documented in this encounter Visit Diagnoses Not on filedocumented in this encounter Administered Medications Inactive Administered Medications - up to 3 most recent administrations Medication Order MAR Action Action Date Dose Rate Site gadobutrol (GADAVIST) 1 mMol/mL injection 0-20 mL 0-20 mL, Intravenous, ONCE PRN, 1 dose, Starting on Thu04/17/17 at 1251, Until Thu04/17/17 at 1659, Per Protocol, Radiology Contrast, Routine Given 04/17/2017 4:59 PM EDT 6 mLs documented in this encounter Care Teams Button Grader Relationship Specialty Start Date End Date Presley Santillan MD [address] [place] [address] PCP - General Internal Medicine 02/10/17 documented as of this encounter
--- OUTSIDE RECORDS SUMMARY | 2024-05-03 07:20 | XMS_ITS | Encounter Summary ---
Author Organization [facility] [place] [address] Care Team Providers Care Authorization Nurse Name Role Phone Presley Santillan MD Primary Care Provider Encounter Details Date Type Department Care Team (Late st Contact Info) Description 03/12/2017 Telephone Hematology/Oncology at [address] [phone] Solo Emmanuel Social History Tobacco Use Types Packs/Day Years Used Date Smoking Tobacco: Former Cigarettes 0 02/17/2010 - 02/17/2011 Smokeless Tobacco: Never Comments:quit years ago Sex and Gender Information Value Date Recorded Sex Assigned at Not on file Gender Identity Not on file Sexual Orientation Not on file documented as of this encounter Miscellaneous Notes * Telephone Encounter - Solo Emmanuel - 03/12/2017 3:24 PM EDT Called pt and told her that her apt with [facility] will be on 03/18 @ 8 with infusion to follow. Pt agreed. She stated she would get labs every Thursday. documented in this encounter Plan of Treatment Not on file documented as of this encounter Visit Diagnoses Not on filedocumented in this encounter Care Teams Authorization Nurse Relationship Specialty Start Date End Date Presley Santillan MD [address] [place] [address] PCP - General Internal Medicine 02/10/17 documented as of this encounter
--- OUTSIDE RECORDS SUMMARY | 2024-05-03 07:20 | XMS_ITS | Encounter Summary ---
Author Organization [facility] [place] [address] Care Team Providers Care Plant Clerk Name Role Phone Presley Santillan MD Primary Care Provider [phone] Reason for Visit * Reason Onset Date Comments Illness 03/30/2017 I don't feel we ll Encounter Details Date Type Department Care Team (Late st Contact Info) Description 03/30/2017 Telephone Hematology/Oncology at [address] [phone] Geovanna Quintero, RN Illness (I don't feel well) Social History Tobacco Use Types Packs/Day Years Used Date Smoking Tobacco: Former Cigarettes 0 02/17/2010 - 02/17/2011 Smokeless Tobacco: Never Comments:quit years ago Sex and Gender Information Value Date Recorded Sex Assigned at Not on file Gender Identity Not on file Sexual Orientation Not on file documented as of this encounter Miscellaneous Notes * Telephone Encounter - Geovanna Quintero, RN - 03/30/2017 5:04 PM EDT Patient had called and she did not feel well. She said she was going to get labs at local hospital.I called her when labs resulted. She said her symptoms were, Not feeling well, flushed, hot flashes, fatigue, headache and blurry vision, and also mentally spacey. No fever reported. We discussed options of going to local ED or called and speaking to oncology provider she said as long as my labs are ok then I will probably be ok. Lab results reported to patient, All labs wnl, platelets 206.She verbalized relief and said she was probably just coming down with a cold. I reiterated her options of calling or if symptoms worsen to go to local ED. She verbalized understanding and was satisfied with the encounter. documented in this encounter Plan of Treatment Not on file documented as of this encounter Visit Diagnoses Not on filedocumented in this encounter Care Teams Plant Clerk Relationship Specialty Start Date End Date Presley Santillan MD [address] [place] [address] PCP - General Internal Medicine 02/10/17 documented as of this encounter
--- OUTSIDE RECORDS SUMMARY | 2024-05-03 07:20 | XMS_ITS | Encounter Summary ---
Author Organization [facility] [place] [address] Care Team Providers Care Horse Stud Manager Name Role Phone Presley Santillan MD Primary Care Provider [phone] Reason for Visit * Reason Onset Date Comments Labs Only 05/04/2017 lab tracking Encounter Details Date Type Department Care Team (Late st Contact Info) Description 05/04/2017 Telephone Hematology/Oncology at [address] [phone] Anamaria Lamas RN Labs Only [...] Telephone Encounter - Anamaria Lamas RN - 05/11/2017 11:25 AM EST LAB TRACKING Daniela Gardner [id number] Diagnosis: ITP Labs ordered: every 3 weeks CBC (and PRN if pt wants to see one , she will let us know she went to lab she realizes we may not get back to her for a few days with results) Medications: Dex 40mg x 4 days every 3 weeks Rituxan infusions x4 (03/11/17-04/01/17) Assessment labs sent to Dr. Whitfield for review Plan dex 40 mg daily for 4 days every 3 weeks with labs Date WBC HGB/HCT PLT ANC PLAN LABS 05/04/17 7.77 12.4/36.3 153k 4.74 Dex 40 mg 05/04-05/07 nv 05/2504/20/17 10.15 12.6/35.2 175k 5.67 Completed 4 days of dex 04/16/17 nv 05/04/17 04/10/17 10.44 12.3/36.1 112k 7.26 4ht cycle dex start 04/13. Prior to vs with Dr Whitfield on 04/2203/30/17 9.57 12.7/36.1 206k 5.04 4th Rituxan due03/31 Labs again on 04/0703/24/17 7.87 12/34.9 120k 5.13 3rd rituxan due 03/25 Labs again 03/31/17 03/16/17 11.79 12.1/34.8 129k 8.18 2nd Rituxan given 03/18 [facility] 03/2403/06/17 11.59 11.8/35.4 166k 9.67 1st rituxan given 03/11 [facility] 03/16 documented in this encounter Plan of Treatment Not on file documented as of this encounter Visit Diagnoses Not on filedocumented in this encounter Care Teams Horse Stud Manager Relationship Specialty Start Date End Date Presley Santillan MD [address] [place] [address] PCP - General Internal Medicine 02/10/17 documented as of this encounter
--- OUTSIDE RECORDS SUMMARY | 2024-05-03 07:20 | XMS_ITS | Encounter Summary ---
Author Organization [facility] Address [facility] [place] [address] Care Team Providers Care Electric Tool Repairer Name Role Phone Presley Santillan MD Primary Care Provider Encounter Details Date Type Department Care Team (Latest Contact Info) Description 03/03/2017 8:36 AM EDT - 03/03/2017 11:59 PM EDT Hospital Encounter [place] [phone] Acute ITP; Alternating constipation and diarrhea; Abdominal pain, unspecified location Discharge Disposition: Home Social History Tobacco Use [...] Sig Dispensed Refills Start Date End Date QUEtiapine (SEROQUEL) 100 mg Tablet Take 100 mg by mouth nightly. 01/19/2017 09/23/2017 NYSTOP Powder 12/26/2016 03/11/2017 budesonide (ENTOCORT EC) 3 mg Capsule, Delayed & Ext.Release 02/09/2017 03/11/2017 amitriptyline (ELAVIL) 25 mg Tablet 11/13/2016 03/11/2017 dexamethasone (DECADRON) 4 mg Tablet Take 10 tablets by mouth daily. For 4 days, every 21 days 100 tablet 1 02/17/2017 03/18/2017 pantoprazole (PROTONIX) 40 mg Tablet, Delayed Release (E.C.)Indications:Abdomi nal pain, unspecified location,Alternating constipation and diarrhea,Gastroesophagea l reflux disease, esophagitis presence not specified Take 1 tablet by mouth daily. 30 tablet 3 02/17/2017 09/23/2017 documented as of this encounter Plan of Treatment Not on file documented as of this encounter Procedures Procedure Name Priority Date/Time Associated Diagnosis Comments CRP, ACUTE INFLAMMATION Routine 03/03/2017 8:59 AM EDT Alternating constipation and diarrhea Abdominal pain, unspecified location HEMOGRAM Routine 03/03/2017 8:59 AM EDT Acute ITP DIFFERENTIAL, AUTOMATED Routine 03/03/2017 8:59 AM EDT Acute ITP SEDIMENTATION RATE Routine 03/03/2017 8: 59 AM EDT Alternating constipation and diarrhea Abdominal pain, unspecified location PLATELET COUNT Routine 03/03/2017 8:59 AM EDT Acute ITP CBC (WITH DIFF) Routine 03/03/2017 8:59 AM EDT Acute ITP TSH Routine 03/03/2017 8:59 AM EDT Alternating constipation and diarrhea Abdominal pain, unspecified location COMPREHENSIVE METABOLIC PANEL Routine 03/03/2017 8:59 AM EDT Acute ITP documented in this encounter Results * (ABNORMAL) TSH (03/03/2017 8:59 AM EDT) Pathologist [facility] Thyroid Stimulating Hormone 7.90(H) 0.27 - 4.20 mlU/ML [facility] Blood specimen (specimen) 03/03/2017 8:59 AM EDT 03/03/2017 9:10 AM EDT Narrative Resulting Agency Comment Spec In Lab Litzy Barron IT INFRASTRUCTURE CONSULTANT CHEMISTRY ORDERAB LES [facility] [place] [address] * CRP, acute inflammation (03/03/2017 8:59 AM EDT) C-Reactive Protein 1.8 <=4.9 mg/L [facility] Blood specimen (specimen) 03/03/2017 8:59 AM EDT 03/03/2017 9:10 AM EDT Narrative Resulting Agency Comment Spec In Lab Litzy Henrylamar IT INFRASTRUCTURE CONSULTANT CHEMISTRY ORDERAB LES Performing Organization Address City/[facility]/ZIP Co de Phone Number [facility] [place] [address] * (ABNORMAL) Sedimentation rate (03/03/2017 8:59 AM EDT) [facility] Sedimentation Rate Automated 38(H) 0 - 20 mm/hr [facility] Blood specimen (specimen) 03/03/2017 8:59 AM EDT 03/03/2017 9:10 AM EDT Narrative Resulting Agency Comment Spec In Lab Litzy Henrylamar IT INFRASTRUCTURE CONSULTANT HEMATOLOGY ORDERA BLES Performing Organization Address City/[facility]/ZIP Co de Phone Number [facility] [place] [address] * Differential, Automated (03/03/2017 8:59 AM EDT) [facility] Neutrophil % 51.7 % [facility] Neutrophil Absolute 3.16 1.70 - 6.10 x10(3)/[facility] Lymph % 35.0 % [facility] Lymphocytes Abs 2.1 0.9 - 3.2 x10(3)/[facility] Monocyte % 6.7 % [facility] Monocyte Abs 0.4 0.3 - 0.9 x10(3)/[facility] Eos % 5.7 % [facility] Eosinophils Abs 0.4 0.0 - 0.4 x10(3)/[facility] Basophil % 0.7 % [facility] Baso Absolute 0.0 0.0 - 0.1 x10(3)/[facility] Immature Gran % 0.20 % [facility] Comment: Immature granulocytes(IG's)percentage and absolute count will include metamyelocytes, myelocytes, and promyelocytes. Blood smears from CBCs yielding IG's will be scanned manually for concordance. If this scan disagrees with the automated IG or if promyelocytes are noted, a manual differential will be performed. Immature Gran Absolute 0.01 0.00 - 0.04 x10(3)/[facility] Blood specimen (specimen) 03/03/2017 8:59 AM EDT 03/03/2017 9:10 AM EDT Narrative Resulting Agency Comment Spec In Lab Yovani Fajardo MD HEMATOLOGY ORDERAB LES [facility] [place] [address] * (ABNORMAL) Hemogram (03/03/2017 8:59 AM EDT) White Blood Cell 6.1 4.0 - 9.5 x10(3)/ L [facility] Red Blood Cell 3.87(L) 4.00 - 5.21 x10(6)/mc L [facility] Hemoglobin 12.2 11.7 - 15.5 gm/dL [facility] Hematocrit 35.3(L) 35.7 - 45.8 % [facility] Mean Cell Volume 91.2 82.6 - 94.4 fL [facility] Mean Cell Hemoglobin 31.5 27.1 - 32.0 pg [facility] Mean Cell Hemoglobin Concentration 34.6 31.7 - 35.0 gm/dL [facility] Platelet 80(L) 145 - 357 x10(3)/mc L [facility] RDW Standard Deviation 43.8 37.0 - 46.0 fL [facility] RDW coefficient of variation 13.3 11.5 - 14.1 % [facility] Mean Platelet Volume 10.9 7.6 - 12.9 fL [facility] NRBC% auto 0.0 % [facility] NRBC Absolute 0.000 0.000 - 0.000 x10(3)/mc L [facility] Blood specimen (specimen) 03/03/2017 8:59 AM EDT 03/03/2017 9:10 AM EDT Narrative Resulting Agency Comment Spec In Lab Yovani Fajardo MD HEMATOLOGY ORDERAB LES [facility] [place] [address] * Comprehensive metabolic panel (non-fasting) (03/03/2017 8:59 AM EDT) Glucose 95 65 - 199 mg/dL [facility] Comment:Diabetes: >=200 mg/d L plus symptoms Blood Urea Nitrogen 12 8 - 18 mg/dL [facility] Creatinine 0.95 0.70 - 1.20 mg/dL [facility] Comment: Please note that the pediatric reference intervals supplied above were not validated at [facility]. Results from pediatric patients should be interpreted in conjunction to the patient's age, height and muscle mass. Sodium 142 135 - 145 mmol/L [facility] Potassium 3.9 3.5 - 5.0 mmol/L [facility] Comment: Please note: ??Patients with WBC >100,000 may have falsely elevated Potassium levels. ??For accurate Potassium quantification in these patients send serum separator tube (gold top) for subsequent determinations. ??Contact the Clinical Chemistry Laboratory if there are any questions. Chloride 103 98 - 107 mmol/L [facility] Carbon Dioxide 24 22 - 31 mmol/L [facility] Anion Gap 15 5 - 15 mmol/L [facility] Calcium 9.3 8.5 - 10.5 mg/dL [facility] Protein, Total 7.4 6.1 - 8.0 gm/dL [facility] Albumin 4.4 3.2 - 5.2 gm/dL [facility] Aspartate Aminotransferase 24 0 - 30 unit/L [facility] Alanine Aminotransferase 29 0 - 30 unit/L [facility] Alkaline Phosphatase 49 40 - 104 unit/L [facility] Bilirubin, Total 0.5 0.2 - 1.3 mg/dL [facility] Est Glomerular Filtration Rate >60 >=60 [facility] Comment: This estimated GFR (eGFR) value [...] the following links into your internet browser. [email or web address] Blood specimen (specimen) 03/03/2017 8:59 AM EDT 03/03/2017 9:10 AM EDT Narrative Resulting Agency Comment Spec In Lab Yovani Fajardo MD CHEMISTRY ORDERABL ES [facility] [place] [address] * (ABNORMAL) Platelet count (03/03/2017 8:59 AM EDT) Platelet 80(L) 145 - 357 x10(3)/mc L [facility] Immature Plt % 5.6 0.0 - 7.4 % [facility] Comment: Limitation of the Immature Platelet Fraction (IPF)-May be less reliable when the platelet count is less than 90o240/uL due to statistical imprecision. The IPF value [...] in a decreased state of production. References: [employer] The Clinical Value of the Immature Platelet Fraction (IPF) in Cell Recovery Document Number 10-1143 11/2010 [employer] The Role of the Immature Platelet Fraction (IPF) in the Differential Diagnosis of Thrombocytopenia, Document MKT-10-1209 V05 P011/09 Blood specimen (specimen) 03/03/2017 8:59 AM EDT 03/03/2017 9:10 AM EDT Narrative Resulting Agency Comment Spec In Lab Yovani Fajardo MD HEMATOLOGY ORDERAB LES Performing Organization Address City/State/[facility] Co de Phone Number [facility] [place] [address] documented in this encounter Visit Diagnoses Diagnosis Acute ITP Immune thrombocytopenic purpura Alternating constipation and diarrhea Other symptoms involving digestive system Abdominal pain, unspecified location documented in this encounter Care Teams Electric Tool Repairer Relationship Specialty Start Date End Date Presley Santillan MD [address] [place] [address] PCP - General Internal Medicine 02/10/17 documented as of this encounter
--- OUTSIDE RECORDS SUMMARY | 2024-05-03 07:20 | XMS_ITS | Encounter Summary ---
Author Organization [facility] [place] [address] Care Team Providers Care Gamma Ray Operator Name Role Phone Presley Santillan MD Primary Care Provider Reason for Visit * Reason Comments Chemotherapy Rituxan #3 of 4 * Treatment/Therapy Plan Authorization (Routine) - Closed Specialty Diagnoses / Procedures Referred By Contac t Referred To Contact Hematology and Oncology Diagnoses Acute ITP Immune thrombocytopenic purpura Procedures TC RITUXIMAB, 100MG, INJECTION (RITUXAN) Yovani Fajardo MD [facility] [address] HEMATOLOGY [place] [address] [facility] [address] [place] [address] Referral ID Status Reason Start Date Expiration Date Visits Re quested Visits Authorized [id number] Closed 03/06/2017 03/06/2018 52 52 Encounter Details Date Type Department Care Team (Late st Contact Info) Description 03/25/2017 10:00 AM EDT Infusion Hematology Oncology at [address] [phone] Acute ITP Social History Tobacco Use Types Packs/Day Years Used Date Smoking Tobacco: Former Cigarettes 0 02/17/2010 - 02/17/2011 Smokeless Tobacco: Never Comments:quit years ago Sex and Gender Information Value Date Recorded Sex Assigned at Not on file Gender Identity Not on file Sexual Orientation Not on file documented as of this encounter Progress Notes * Celeste Posada RN - 03/25/2017 10:00 AM EDT INFUSION THERAPY ADMINISTRATION NOTES DIAGNOSIS: ITP REASON FOR VISIT: Rituxan ( given at second time rate) Treatment # 3 SUBJECTIVE Daniela Gardner offers no complaints. OBJECTIVE [...] 650 mg, Oral, ONCE, 1 dose, On Thu03/25/17 at 1100, Maximum dose of acetaminophen is 4000 mg from all sources in 24 hours., Routine Given 03/25/2017 11:01 AM EDT 650 mg dexamethasone (DECADRON) injection 10 mg 10 mg, Intravenous, ONCE, 1 dose, On Thu03/25/17 at 1100 Given 03/25/2017 11:04 AM EDT 10 mg diphenhydrAMINE (BENADRYL) capsule 50 mg 50 mg, Oral, ONCE, 1 dose, On Thu03/25/17 at 1100, Routine Given 03/25/2017 11:02 AM EDT 50 mg riTUXimab (RITUXAN) 600 mg in sodium chloride 0.9% 300 mL infusion 600 mg, Intravenous, ONCE, 1 dose, On Thu03/25/17 at 1130, Dose 3 of 4 New Bag 03/25/2017 11:46 AM EDT 600 mg documented in this encounter Care Teams Gamma Ray Operator Relationship Specialty Start Date End Date Presley Santillan MD [address] [place] [address] PCP - General Internal Medicine 02/10/17 documented as of this encounter
--- OUTSIDE RECORDS SUMMARY | 2024-05-03 07:20 | XMS_ITS | Encounter Summary ---
Author Organization [facility] Address [facility] [place] [address] Care Team Providers Care Commercial Real Estate Assistant Name Role Phone Presley Santillan MD Primary Care Provider [phone] Encounter Details Date Type Department Care Team (Late st Contact Info) Description 03/11/2017 10:00 AM EDT Office Visit Hematology/Oncology at [address] [phone] Mercedez Goldberg MD [facility] [address] HEMATOLOGY [place] [address] Acute ITP Social History Tobacco Use Types [...] Sign Reading Time Taken Comments Blood Pressure 105/56 03/11/2017 9:55 AM EDT Pulse 86 03/11/2017 9:55 AM EDT Temperature 36.4 ??C (97.5 ??F) 03/11/2017 9:55 AM ED T Respiratory Rate 16 03/11/2017 9:55 AM EDT Oxygen Saturation 100% 03/11/2017 9:55 AM EDT Inhaled Oxygen Concentration - - Weight 62.1 kg (137 lb) 03/11/2017 9:55 AM EDT Height 160 cm (5' 2.99) 03/11/2017 9:55 AM EDT Body Mass Index 24.27 03/11/2017 9:55 AM EDT documented in this encounter Progress Notes * Mercedez Goldberg MD - 03/11/2017 10:00 AM EDT OUTPATIENT HEMATOLOGY/ ONCOLOGY CONSULTATION HISTORY [...] were normal. She was then admitted to [facility] for urgent treatment of suspected ITP. No [...] triggered by stress of new ITP diagnosis. The first seen in transfer today from Dr. Horacio Fajardo for ongoing treatment of her ITP. 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 She has multiple complaints today. She says she has ongoing bruising although if she had any at was extremely faint and difficult for me to appreciate. She also complains of ongoing total body aches, which she thought was fibromyalgia. Now she is wondering if the muscle aches just come after her dexamethasone. She also noted that when she got IVIG her entire arm 8. I have not seen this before with IVIG. She stated that they slowed the infusion but that did not change the symptoms. Our nurses also wondered whether the muscle cramping could've been an adverse reaction to Benadryl. 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 diaZEPam (VALIUM) 5 mg Tablet Take 2.5 mg by mouth nightly. Yes multivitamin (THERAGRAN) Tablet Take 1 tablet by mouth daily. Yes levothyroxine (SYNTHROID) 25 mcg Tablet Take 25 mcg by mouth daily. Yes QUEtiapine (SEROQUEL) 100 mg Tablet Take 100 mg by mouth nightly. Yes dexamethasone (DECADRON) 4 mg Tablet Take 10 tablets by mouth daily. For 4 days, every 21 days Yes pantoprazole (PROTONIX) 40 mg Tablet, Delayed Release (E.C.) Take 1 tablet by mouth daily. Yes SUMAtriptan (IMITREX) 100 mg Tablet Take 100 mg by mouth as needed for Migraine. PAST MEDICAL HISTORY- reviewed Patient Active Problem List Diagnosis Code ??? Thrombocytopenia D69.6 ??? 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 COMPREHENSIVE REVIEW OF SYSTEMS Besides what is mentioned in the HPI, all other systems are negative PHYSICAL EXAMINATION Most Recent Vitals: 03/11/17 0955 BP: 105/56 Pulse: 86 Resp: 16 Temp: 36.4 ??C (97.5 ??F) SpO2: 100% NAD, pleasant, Heart is RRR Lung sounds are CTAB Abd is soft, NT/ ND Lymphadenopathy is not appreciated Joints are not swollen or inflamed There are no gross neurologic deficits Affect and mood are appropriate for the situation There are no appreciable rashes or bruises on skin examined LABORATORY EVALUATION No results found for this or any previous visit (from the past 24 hour(s)). RADIOGRAPHIC EVALUATION As above PATHOLOGY EVALUATION As above ASSESSMENT: Daniela Gardner is a 26 y.o. female presents with ITP. Unclear trigger. Received IVIG and 4 days of Dex on 02/10, with rapid response, and normalization of platelets. On day 22, her platelets have been dropping, [...] effective, 6 cycles increases the likelihood of [facility] remission (based on Carmen et al, 2013). [...] Rituximab 375mg/ m2 weekly x 4 doses. She is s/p C#2 dexamethasone 40mg X 4 days. Rituximab day 1 today. I discussed the benefits and risks of rituxan with the patient. These include but are not limited to fever night after infusion and infusional reactions that include but are not limited to rash, hives, anaphylaxis, shortness of breath, chest pain, rigors, bone pain, fever, hepatitis B reactivation and case reports of EXPORT AGENT infections. Patient should use control, is not recommended while on rituximab or for a period of time following the rituximab. she agreed to proceed with therapy. She states that her significant other has had a vasectomy. Plan ?? Pulse Dex 40mg x 4 days, starting 03/03 and again on 03/24 ?? Rituximab day 1 today. Then weekly for a total of 4 infusions. ?? Given her anxiety, I think she would do well with a toxicity check next week with RAIL SIGNAL MECHANIC. ?? Continue weekly CBC at [facility] with RN tracking ?? Appointment with [facility] on week #4 of rituximab MERCEDEZ GOLDBERG MD Pager: [phone] 03/11/2017 * Anamaria Lamas RN - 03/11/2017 10:00 AM EDT MEDICAL ONCOLOGY INITIAL NURSING ASSESSMENT ADVANCE DIRECTIVES: In EDH [ ] Has documents [ x ] Will bring in [ ] IF NO: Advance Directive pamphlet provided : Referral to Care Management : PRESENTING SYSTEMS and PATHOLOGY: had colonitis issues, labs drawn and low platelets seen REVIEW OF SYSTEMS: see gabi note Prior Radiotherapy: no[ x ] Yes[ ]Site Date Facility Prior Chemotherapy: no[ x ] Yes[ ] Drug: Oncologist- LastTreatment: NO: YES: Claustrophobia or requires sedation for MRIs x Allergy to CT or MRI contrast agent or iodine or shellfish x Diabetic and on metformin x Metal in body, implanted device, worked with metal, body piercings,braces x Dentures or hearing device xx Pacemaker x Difficulty breathing while lying flat x Kidney problems/creatinine x Balance difficulty: [ x ]no [ ]yes At risk for fall: [ x ] no [ ] yes If yes, actions implemented to prevent fall. Patient/family instructed to avoid independent ambulation. Use wheelchair and ask for assistance of staff while in the clinic. ADL [ x ] no limits [ ] needs dressing assistance [ ] needs meal assistance Assistive device:[ x ]none [ ]cane [ ]walker [ ]wheelchair [ ]other: explain PAIN ASSESSMENT: [3 ] out of 10 Location: Description: [ ] Dull [ ] Sharp [ ] Burning [ ] Throbbing [ ] Radiating [ ] Continuous [ ]Intermittent Aggravating Factors: [ ] Movement [ ] Position [ ]Immobility [ ]Other Alleviating Factors: [ ]Medication [ ] Positioning [ ] Other Current Pain Management Plan: [ x ]Satisfied [ ] Not satisfied SOCIAL ASSESSMENT: See EDH social assessment information entered. Support Systems: lives back and forth mom, dad and finance and his two children transportation plan: [x ]private vehicle [ ] RCT needs Social Work referral [ ] Unknown at this time needs Social Work referral Barriers to treatment: Referrals/Interventions: LEARNING STYLE: Visual and verbal, wants written material and verbal discussion. TEACHING: __ NCI ???Chemotherapy and You?? and folder given __ Specific chemotherapy literature provided and reviewed with patient documented in this encounter Plan of Treatment Not on file documented as of this encounter Procedures Procedure Name Priority Date/Time Associated Diagnosis Comments CHEMOTHERAPY SCAN 03/11/2017 12: 00 AM EDT documented in this encounter Results * SCAN DOC: CHEMOTHERAPY (03/11/2017 12:00 AM EDT) Narrative 03/11/2017 12:00 AM EDT Ordered by an unspecified provider. Scanning Provider MEDIA MGR SCAN EXT O RDR/RSLT documented in this encounter Visit Diagnoses Diagnosis Acute ITP Immune thrombocytopenic purpura documented in this encounter Care Teams Commercial Real Estate Assistant Relationship Specialty Start Date End Date Presley Santillan MD [address] [place] [address] PCP - General Internal Medicine 02/10/17 documented as of this encounter
--- OUTSIDE RECORDS SUMMARY | 2024-05-03 07:20 | XMS_ITS | Encounter Summary ---
Author Organization [facility] [place] [address] Care Team Providers Care Glass Mould Cleaner Name Role Phone Presley Santillan MD Primary Care Provider [phone] Reason for Visit * Reason Onset Date Comments Labs Only 04/10/2017 Encounter Details Date Type Department Care Team (Late st Contact Info) Description 04/10/2017 Telephone Hematology Oncology at [address] [phone] Kandis Hill I, RN Labs Only Social [...] Encounter - Kandis Hill I RN - 04/10/2017 4:51 PM EDT LAB TRACKINGSpoke with patient who reports that she is having bruising which started 2 days ago. Denies bleeding.Asked to have cbc done early. Starts 4 cycle of dex on Thursday. Daniela Gardner [id number] Diagnosis: ITP Labs ordered: weekly CBC Medications: Dex 40mg x 4 days Start Cycle #3 on 03/24 Rituxan infusions x4 Spoke with patient who reports that she is having bruising which started 2 days ago. Denies bleeding. Starts 4 cycle of dex on Thursday. Dr Whitfield reviewed results. NO change to plan. Repeat lab prior to vs with Dr Whitfield. Date WBC HGB/HCT PLT ANC PLAN LABS 04/10/17 10.44 12.3/36.1 112k 7.26 4ht cycle dex start 04/13. Prior to vs with Dr Whitfield on 04/2203/30/17 9.57 12.7/36.1 206k 5.04 4th Rituxan due03/31 Labs again on 04/0703/24/17 7.87 12/34.9 120k 5.13 3rd rituxan due 03/25 Labs again 03/31/17 03/16/17 11.79 12.1/34.8 129k 8.18 2nd Rituxan given 03/[address] [facility] 03/2403/06/17 11.59 11.8/35.4 166k 9.67 1st rituxan given 03/[address] [facility] 03/16 documented in this encounter Plan of Treatment Not on file documented as of this encounter Visit Diagnoses Not on filedocumented in this encounter Care Teams Glass Mould Cleaner Relationship Specialty Start Date End Date Presley Santillan MD [address] [place] [address] PCP - General Internal Medicine 02/10/17 documented as of this encounter
--- OUTSIDE RECORDS SUMMARY | 2024-05-03 07:20 | XMS_ITS | Encounter Summary ---
Author Organization [facility] [place] [address] Care Team Providers Care Metal Bonding Press Operator Name Role Phone Presley Santillan MD Primary Care Provider [phone] Reason for Visit * Reason Onset Date Comments Labs Only 03/31/2017 Lab Tracking Encounter Details Date Type Department Care Team (Late st Contact Info) Description 03/31/2017 Telephone Hematology Oncology at [address] [phone] Carlita Hoskins RN Labs Only [...] Telephone Encounter - Carlita Hoskins RN - 03/31/2017 11:17 AM EDT LAB TRACKING Daniela Gardner [id number] Diagnosis: ITP Labs ordered: weekly CBC Medications: Dex 40mg x 4 days Start Cycle #3 on 03/24 Rituxan infusions x4 Date WBC HGB/HCT PLT ANC PLAN LABS 03/30/17 9.57 12.7/36.1 206k 5.04 4th Rituxan due03/31 [...] on filedocumented in this encounter Care Teams Metal Bonding Press Operator Relationship Specialty Start Date End Date Presley Santillan MD [address] [place] [address] PCP - General Internal Medicine 02/10/17 documented as of this encounter
--- OUTSIDE RECORDS SUMMARY | 2024-05-03 07:20 | XMS_ITS | Encounter Summary ---
Author Organization [facility] Address [facility] [place] [address] Care Team Providers Care Hangar Attendant Name Role Phone Presley Santillan MD Primary Care Provider Encounter Details Date Type Department Care Team (Latest Contact Info) Description 03/02/2017 8:42 AM EDT - 03/02/2017 8:44 AM EDT Hospital Encounter Laboratory [facility] [place] [phone] Alternating constipation and diarrhea; Abdominal pain, unspecified [...] Procedure Name Priority Date/Time Associated Diagnosis Comments STOOL CULTURE SCREEN ([facility] [place]/CGP/APD/NLH) Routine 03/02/2017 4:30 PM EDT Alternating constipation and diarrhea Abdominal pain, unspecified location CAMPYLOBACTER ANTIGEN Routine 03/02/2017 4:30 PM EDT Alternating constipation and diarrhea Abdominal pain, unspecified location C. DIFFICILE SCREEN Routine 03/02/2017 4 :30 PM EDT Alternating constipation and diarrhea Abdominal pain, unspecified location CALPROTECTIN,STOOL Routine 03/02/2017 4: 30 PM EDT Alternating constipation and diarrhea Abdominal pain, unspecified location SHIGA TOXIN ASSAY Routine 03/02/2017 4:3 0 PM EDT Alternating constipation and diarrhea Abdominal pain, unspecified location STOOL CULTURE Routine 03/02/2017 4:30 PM EDT Alternating constipation and diarrhea Abdominal pain, unspecified location documented in this encounter Results * Shiga Toxin Detection (03/02/2017 4:30 PM EDT) Shiga Toxin Assay EIA Negative for Shiga Toxin 1 EIA Negative for Shiga Toxin 2 [facility] Stool specimen (specimen) 03/02/2017 4:30 PM EDT 03/03/2017 8:57 AM EDT Narrative Resulting Agency Comment Spec In Lab Litzy Barron APRN MICROBIOLOGY - NERAL ORDERABLES [facility] [place] [address] * Campylobacter Antigen (03/02/2017 4:30 PM EDT) Campylobacter Ag Immunoassay Negative for Campylobacter Antigen [facility] Stool specimen (specimen) 03/02/2017 4:30 PM EDT 03/03/2017 8:57 AM EDT Narrative Resulting Agency Comment Spec In Lab Litzy Barron WEB DATABASE DEVELOPER MICROBIOLOGY - GE NERAL ORDERABLES [facility] [place] [place] [address] * Stool culture (03/02/2017 4:30 PM EDT) Stool Culture No enteric pathogens isolated [facility] Stool specimen (specimen) 03/02/2017 4:30 PM EDT 03/03/2017 8:57 AM EDT Narrative Resulting Agency Comment Spec In Lab Litzy Barron WEB DATABASE DEVELOPER MICROBIOLOGY - GE NERAL ORDERABLES Performing Organization Address [facility] Co de Phone Number [facility] [place] [address] * C. Difficile Screen (03/02/2017 4:30 PM EDT) C Diff Interp Negative Negative [facility] Comment: C. diff ??Negative Clostridium difficile is not present in the specimen. If patient is having diarrhea suspected to be from an infectious cause, then Contact Precautions are still required. Stool specimen (specimen) 03/02/2017 4:30 PM EDT 03/03/2017 8:57 AM EDT Narrative Resulting Agency Comment Spec In Lab Litzy Barron WEB DATABASE DEVELOPER MICROBIOLOGY - GE NERAL ORDERABLES Performing Organization Address City/[facility]/ZIP Co de Phone Number [facility] [place] [address] * Calprotectin (03/02/2017 4:30 PM EDT) Calprotectin <15.6 <=50.0 (Normal) [facility] [place]/gm [facility] Comment: Test Performed by: [address] [address] Stool specimen (specimen) 03/02/2017 4:30 PM EDT 03/03/2017 9:19 AM EDT Narrative Resulting Agency Comment Spec In Lab Litzy Terrazasv WEB DATABASE DEVELOPER BODY FLUIDS AND S TOOLS ORDERABLES Performing Organization Address City/State/[facility] Co de Phone Number [facility] [place] [address] documented in this encounter Visit Diagnoses Diagnosis Alternating constipation and diarrhea Other symptoms involving digestive system Abdominal pain, unspecified location documented in this encounter Care Teams Hangar Attendant Relationship Specialty Start Date End Date Presley Santillan MD [address] [place] [id number] PCP - General Internal Medicine 02/10/17 documented as of this encounter
--- OUTSIDE RECORDS SUMMARY | 2024-05-03 07:20 | XMS_ITS | Encounter Summary ---
Author Organization [facility] [place] [address] Care Team Providers Care Inspector Missile Name Role Phone Presley Santillan MD Primary Care Provider Reason for Visit * Reason Onset Date Comments Labs Only 06/03/2017 lab tracking Encounter Details Date Type Department Care Team (Late st Contact Info) Description 06/03/2017 Telephone Hematology/Oncology at [address] [phone] Anamaria Lmaas RN Labs Only (lab tracking) Social History [...] Telephone Encounter - Anamaria Lamas RN - 06/03/2017 2:19 PM EST LAB TRACKING Daniela Gardner [id number] Diagnosis: ITP Labs ordered: every 4 weeks CBC (and PRN if pt wants to see one , she will let us know she went to lab she realizes we may not get back to her for a few days with results) Medications: Dex 40mg x 4 days every 3 weeks completed 04/2017 Rituxan infusions x4 (03/11/17-04/01/17) Assessment saw Angeli Acosta COUNSELING SERVICES DIRECTOR in clinic today Plan pt will do labs in 4 weeks Date WBC HGB/HCT PLT ANC PLAN LABS 06/01/17 7.27 12.2/36.4 209k 3.86 Stopped dex [facility] 06/30/16 05/25/17 8.15 12.2/35.5 153k 5.21 Dex 40 mg 05/25-05/28 [facility] 06/1505/04/17 7.77 12.4/36.3 153k 4.74 Dex 40 mg 05/04-05/07 [facility] 05/2504/20/17 10.15 12.6/35.2 175k 5.67 Completed 4 days of dex 04/16/17 [facility] 05/04/17 04/10/17 10.44 12.3/36.1 112k 7.26 4ht cycle dex start 04/13. Prior to vs with Dr Whitfield on 04/2203/30/17 9.57 12.7/36.1 206k 5.04 4th Rituxan due03/31 Labs again on 04/0703/24/17 7.87 12/34.9 120k 5.13 3rd rituxan due 03/25 Labs again 03/31/17 03/16/17 11.79 12.1/34.8 129k 8.18 2nd Rituxan given 03/18 [facility] 03/2403/06/17 11.59 11.8/35.4 166k 9.67 1st rituxan given 03/11 [facility] 03/16 documented in this encounter Plan of Treatment Not on file documented as of this encounter Visit Diagnoses Not on filedocumented in this encounter Care Teams Inspector Missile Relationship Specialty Start Date End Date Presley Santillan MD [address] [place] [address] PCP - General Internal Medicine 02/10/17 documented as of this encounter
--- OUTSIDE RECORDS SUMMARY | 2024-05-03 07:20 | XMS_ITS | Encounter Summary ---
Author Organization [facility] Address [facility] [place] [address] Care Team Providers Care Lighting Equipment Operator Name Role Phone Presley Santillan MD Primary Care Provider [phone] Encounter Details Date Type Department Care Team (Late st Contact Info) Description 04/01/2017 9:30 AM EDT Office Visit Hematology/Oncolog y at [address] [phone] Mercedez Whitfield MD [facility] [address] [place] [address] Angeli Dao, KOTA [facility] [address] [place] [address] Idiopathic thrombocytopenic purpura Social History Tobacco Use [...] Sign Reading Time Taken Comments Blood Pressure 119/72 04/01/2017 9:51 AM EDT Pulse 84 04/01/2017 9:51 AM EDT Temperature 36.7 ??C (98.1 ??F) 04/01/2017 9:51 AM ED T Respiratory Rate 16 04/01/2017 9:51 AM EDT Oxygen Saturation 100% 04/01/2017 9:51 AM EDT Inhaled Oxygen Concentration - - Weight 63.8 kg (140 lb 9.6 oz) 04/01/2017 9:51 A M EDT Height - - Body Mass Index 24.91 03/18/2017 8:00 AM EDT documented in this encounter Progress Notes * Angeli Dao, TECHNICAL SALES DIRECTOR - 04/01/2017 9:30 AM EDT Subjective: Patient ID: Daniela Gardner [...] doses) -Cycle 3 Pulse Dex due 03/24/17 -Cycle 4 Due - 04/14/17 ?? HPI Daniela is being seen today at her request. She is due for dose #4 (final dose) of Rituxan today. She is here to discuss her Dexamethasone - she doesn't think she can keep taking it. She is struggling with relationship issues seocndary to the side effects of the Dex. She is also tired, Gets achy coming off, has ahd some skin breakouts, hair thinning, increased appetite and increased OCD tendencies. She is wondering if she can stop the Dex. Review of Systems Constitutional: Positive for fatigue. Negative for chills and fever. Gastrointestinal: Colitis symptoms chronic and stable Skin: Acne break outs Hematological: Negative. Psychiatric/Behavioral: Positive for agitation, decreased concentration and sleep disturbance. The patient is nervous/anxious. Objective: Physical Exam Constitutional: She is oriented to person, place, and time. She appears well- developed and well-nourished. No distress. Eyes: Conjunctivae are normal. Neck: Normal range of motion. Pulmonary/Chest: Effort normal. Neurological: She is alert and oriented to person, place, and time. Skin: Skin is warm and dry. Mild acne on face Psychiatric: She has a normal mood and affect. Date WBC HGB/HCT PLT ANC PLAN LABS ?? 03/30/17 ?? 9.57 ?? 12.7/36.1 ?? 206k ?? 5.04 ?? 4th Rituxan due03/31 Before next office visit ?? 03/24/17 7.87 12/34.9 120k 5.13 3rd rituxan due 03/25 Labs again 03/31/17 03/16/17 11.79 12.1/34.8 129k 8.18 2nd Rituxan given 03/18 [facility] 03/2403/06/17 11.59 11.8/35.4 166k 9.67 1st rituxan given 03/11 [facility] 03/16 BP 119/72 (Patient Position: Sitting) Pulse 84 Temp 36.7 ??C (98.1 ??F) (Oral) Resp 16 Wt 63.8 kg (140 lb 9.6 oz) SpO2 100% BMI 24.91 kg/m2 Assessment and Plan: 1. ITP - Daniela has had nice response IVIG followed by Pulse Dex and Rituxan therapy. She is due for her 4th and final Rituxan today which we will proceed with. She I sdue again for a DEX cycle on 04/13/17. All of this 30 minute visit was on discussionr egarding risk/benefit of more cycles of Dexamethasone. Her response rates increase with up to 6 cycles of Dex. We discussed numerous strategiesto help with the side effects. She is aware that she can stop at any time- but we would recommend that she try and get in all 6 cycles to maximize her chance of chcf response. - she will discuss with her family the importance of support during this time of therapy - I encouraged her to demand less of herself during this time - it is only temporary. Difficult to keep up a hectic schedule -we reviewed temporary nature of s/e like hair thinning, increased appetite and skin issues. She will get all the junk food out of the house. -I encouraged her to exercise /walk daily -she will discuss with PCP increasing her zoloft dose -she does think this helping. -we will move forward one cycle at a time She would like to do less labs/visits if possible - will decrease labs to Q3 weeks before each dex dose. She was scheduled for next week which we will cancel since she was seen today. We will re-schedule her for 04/22. She agrees to start her 4th cycle of Dex on 04/13. She will callbefore then if any changes in status. 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
--- OUTSIDE RECORDS SUMMARY | 2024-05-03 07:20 | XMS_ITS | Encounter Summary ---
Author Organization [facility] Address [facility] [place] [address] Care Team Providers Care Claims Administrator Name Role Phone Presley Santillan MD Primary Care Provider [phone] Encounter Details Date Type Department Care Team (Latest Contact Info) Description 06/03/2017 9:00 AM EST Office Visit Hematology/Oncology at [address] [phone] Angeli Dao, VARNISH SUPERVISOR [facility] DR [place] [address] Idiopathic thrombocytopenic purpura Social History Tobacco Use [...] Reading Time Taken Comments Blood Pressure 110/65 06/03/2017 9:04 AM EST Pulse 86 06/03/2017 9:04 AM EST Temperature 37 ??C (98.6 ??F) 06/03/2017 9:04 AM EST Respiratory Rate 16 06/03/2017 9:04 AM EST Oxygen Saturation 100% 06/03/2017 9:04 AM EST Inhaled Oxygen Concentration - - Weight 68.9 kg (152 lb) 06/03/2017 9:04 AM EST Height 160 cm (5' 2.99) 06/03/2017 9:04 AM EST Body Mass Index 26.93 06/03/2017 9:04 AM EST documented in this encounter Progress Notes * Angeli Dao, VARNISH SUPERVISOR - 06/03/2017 9:00 AM EST Subjective: Patient ID: Daniela Gardner is a [...] Cycle 5 pulse Dex due 05/04/17 ?? HPI Daniela has been struggling with Dex side effects - affects her 'physically, mentally and emotionally'. It is taking her longer and longer to return to baseline - it has been almost a month since last pulse and just now starting to feel better. She has a colo coming up. She has had pins and needles In her feet when first awakening - resolves once she takes a few steps. She also had a dizzy spelllast week - feels like she is spinning in numerous directions. This was surrounding her migraines- occurs when lying in bed. Occurred a few weeks after her dex. She also had a holter monitor - negative for her symptoms - but PCP heard new murmor - having echo tomorrow. Review of Systems Constitutional: Positive for fatigue and unexpected weight change. Respiratory: Negative. Gastrointestinal: Negative. Genitourinary: Positive for vaginal bleeding. Has had some unusal spotting Musculoskeletal: Positive for arthralgias. Chronic Skin: Positive for rash. Reports pettechia on legs during treatment Neurological: Positive for dizziness and headaches. As above Objective: Physical Exam Constitutional: She is oriented to person, place, and time. She appears well- developed and well-nourished. No distress. Eyes: Conjunctivae are normal. Musculoskeletal: Normal range of motion. She exhibits no edema. Neurological: She is alert and oriented to person, place, and time. Skin: Skin is warm and dry. NO Pettechia - skin colored small raised papules along lower legs Psychiatric: Her behavior is normal. WBC- 7.3 HG- 12.2 Plts- 209 Assessment and Plan: 1. ITP -Daniela has completed 5 cycles of PUlse Dex with normal platelet coutns. She has struggledwith s/e of dex - most being emotional at this time declines cycle 6. We did review at thsi point we will monitor for relapse - start with monthly CBC. We reviewed s/sx of relapse specifically abnormal bleeding and bruising. We reviewed photos of pettechia so she is aware - reassured her that the small bump son her legs are likely secondary to shaving and NOT Petechiae which are dark red and flat. Other symptoms of dizzyness, headaches, ect all pre-date her ITP and steriod therapy - she will continue to follow with PCP for these. Daniela Gardner will return to clinic in 3 months. she will call before then if any concerns or changes in status. documented in this encounter Plan of Treatment Not on file documented as of this encounter Visit Diagnoses Diagnosis Idiopathic thrombocytopenic purpura Immune thrombocytopenic purpura documented in this encounter Care Teams Claims Administrator Relationship Specialty Start Date End Date Presley Santillan MD [address] [place] [address] PCP - General Internal Medicine 02/10/17 documented as of this encounter
--- OUTSIDE RECORDS SUMMARY | 2024-05-03 07:20 | XMS_ITS | Encounter Summary ---
Author Organization [facility] [place] [address] Care Team Providers Care Sole Leveler Name Role Phone Presley Santillan MD Primary Care Provider Reason for Visit * Reason Comments Chemotherapy Cycle 1 Day 1 * Treatment/Therapy Plan Authorization (Routine) - Closed Specialty Diagnoses / Procedures Referred By Contac t Referred To Contact Hematology and Oncology Diagnoses Acute ITP Immune thrombocytopenic purpura Procedures TC RITUXIMAB, 100MG, INJECTION (RITUXAN) Yovani Fajardo MD [facility] DR HEMATOLOGY [place] [address] [facility] [address] [place] [address] Referral ID Status Reason Start Date Expiration Date Visits Re quested Visits Authorized [id number] Closed 03/06/2017 03/06/2018 52 52 Encounter Details Date Type Department Care Team (Late st Contact Info) Description 03/11/2017 10:30 AM EDT Infusion Hematology Oncology at [address] [phone] Acute ITP Social History Tobacco Use Types Packs/Day Years Used Date Smoking Tobacco: Former Cigarettes 0 02/17/2010 - 02/17/2011 Smokeless Tobacco: Never Comments:quit years ago Sex and Gender Information Value Date Recorded Sex Assigned at Not on file Gender Identity Not on file Sexual Orientation Not on file documented as of this encounter Progress Notes * Celeste Posada RN - 03/11/2017 10:30 AM EDT INFUSION THERAPY ADMINISTRATION NOTES DIAGNOSIS: ITP REASON FOR VISIT: Rituxan ( given at First time rate) Treatment # 1 SUBJECTIVE Daniela Gardner offers no complaints. OBJECTIVE LAB DATA: Platelet Count IV ACCESS: Peripheral IV L hand REACTIONS (DESCRIPTION, TIME, INTERVENTION AND EFFECTIVENESS) 14:10 /o feeling flushed and scratchy throat after coming back from bathroom. Infusion stopped. IV NS open to gravity. Bp 114/71 HR 106 AAntonio Dao TEAM CDL DRIVER in to see pt. States feeling better at 14:20. 14:28 121/75 HR 99 . Pt states feeling fine now. Med restarted per Sharon Daniela Gardner was awake, alert and tolerated remainder of treatment well. Teaching sheets given PLAN Return to clinic per routine. documented [...] 650 mg, Oral, ONCE, 1 dose, On Thu03/11/17 at 1130, Maximum dose of acetaminophen is 4000 mg from all sources in 24 hours., Routine Given 03/11/2017 12:25 PM EDT 650 mg dexamethasone (DECADRON) injection 10 mg 10 mg, Intravenous, ONCE, 1 dose, On Thu03/11/17 at 1130 Given 03/11/2017 12:25 PM EDT 10 mg diphenhydrAMINE (BENADRYL) capsule 50 mg 50 mg, Oral, ONCE, 1 dose, On Thu03/11/17 at 1130, Routine Given 03/11/2017 12:25 PM EDT 50 mg riTUXimab (RITUXAN) 600 mg in sodium chloride 0.9% 300 mL infusion 600 mg, Intravenous, ONCE, 1 dose, On Thu03/11/17 at 1130, Dose 1 of 4 New Bag 03/11/2017 1:08 PM EDT 600 mg documented in this encounter Care Teams Sole Leveler Relationship Specialty Start Date End Date Presley Santillan MD [address] [place] [address] PCP - General Internal Medicine 02/10/17 documented as of this encounter
--- OUTSIDE RECORDS SUMMARY | 2024-05-03 07:20 | XMS_ITS | Encounter Summary ---
Author Organization [facility] Address [facility] [place] [address] Care Team Providers Care Pacs Administrator Name Role Phone Presley Santillan MD Primary Care Provider Reason for Visit * Reason Comments Advice Only * Consultation (Urgent) - Specialty Diagnoses / Procedures Referred By Contac t Referred To Contact Hematology and Oncology Diagnoses Chronic ITP (idiopathic thrombocytopenia) ITP Procedures ITP Presley Santillan MD [address] [place] [address] [facility] Hem Onc [address] [place] [address] Referral ID Status Reason Start Date Expiration Date V isits Requested Visits Authorized [id number] Consult, Test & Treat 02/10/2017 02/10/2018 1 1 Encounter Details Date Type Department Care Team (Late st Contact Info) Description 02/17/2017 11:00 AM EDT Office Visit Hematology [place] [address] Yovani Fajardo MD [facility] [address] [place] [address] Acute ITP Social History Tobacco Use Types [...] Time Taken Comments Blood Pressure 128/77 02/17/2017 10:19 AM EDT Pulse 99 02/17/2017 10:19 AM EDT Temperature 37.1 ??C (98.8 ??F) 02/17/2017 10:19 AM E DT Respiratory Rate 20 02/17/2017 10:19 AM EDT Oxygen Saturation 100% 02/17/2017 10:19 AM EDT Inhaled Oxygen Concentration - - Weight 60.5 kg (133 lb 6.4 oz) 02/17/2017 10:19 AM EDT Height 156.5 cm (5' 1.61) 02/17/2017 10:19 AM E DT Body Mass Index 24.71 02/17/2017 10:19 AM EDT documented in this encounter Progress Notes * Yovani Fajardo MD - 02/17/2017 11:00 AM EDT OUTPATIENT HEMATOLOGY/ ONCOLOGY CONSULTATION HISTORY [...] were normal. She was then admitted to [facility] for urgent treatment of suspected ITP. No [...] Hep B negative ?? HIV negative ?? Biopsy: ?? (02/12) PERIPHERAL BLOOD, SMEAR: Marked thrombocytopenia in an otherwise unremarkable peripheral smear ?? Stage: Treatment Course ?? 02/11/2017- Diagnosis- IVIG + Dexamethasone 40mg x 4 days INTERIM HISTORY Today, pt feels very poorly. She complains of diffuse myalgias. She is extremely sensitive to even light touches. . No joint swelling/ fevers/ chills. Abdominal complaints present but not as bad as before. No rashes/ blisters. No headaches. She admits to being emotionally labile. She also has a lot of anxiety over her current health condition. She has a number of good questions about her disease and treatment. 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 pantoprazole (PROTONIX) 40 mg Tablet, Delayed Release (E.C.) Take 1 tablet by mouth daily. Yes dexamethasone (DECADRON) 4 mg Tablet Take 10 tablets by mouth daily. For 4 days, every 21 days PAST MEDICAL HISTORY- reviewed Patient Active Problem List Diagnosis Code ??? Thrombocytopenia D69.6 ??? Acute ITP D69.3 PAST SURGICAL HISTORY No past surgical history on file. FAMILY HISTORY- reviewed No family history on file. COMPREHENSIVE REVIEW OF SYSTEMS Besides what is mentioned in the HPI, all other systems are negative PHYSICAL EXAMINATION Vitals: 02/17/17 1019 BP: 128/77 Pulse: 99 Resp: 20 Temp: 37.1 ??C (98.8 ??F) NAD, pleasant, Heart is RRR Lung sounds are CTAB Abd is soft, NT/ ND, there is no palpable organomegally Lymphadenopathy is not appreciated Joints are not swollen or inflamed There are no gross neurologic deficits Affect and mood are appropriate for the situation There are no appreciable rashes LABORATORY EVALUATION Recent Results (from the past 24 hour(s)) Comprehensive metabolic panel (non-fasting) Result Value Ref Range Glucose Lvl 89 65 - 199 mg/dL BUN 10 8 - 18 mg/dL Creatinine 0.93 0.70 - 1.20 mg/dL Sodium 138 135 - 145 mmol/L Potassium 3.8 3.5 - 5.0 mmol/L Chloride 101 98 - 107 mmol/L CO2 25 22 - 31 mmol/L Anion Gap 12 5 - 15 mmol/L Calcium 8.7 8.5 - 10.5 mg/dL Total Protein 7.3 6.1 - 8.0 gm/dL Albumin 3.8 3.2 - 5.2 gm/dL AST 12 0 - 30 unit/L ALT 8 0 - 30 unit/L Alk Phos 41 40 - 104 unit/L Total Bilirubin 0.9 0.2 - 1.3 mg/dL Estimated GFR >60 >=60 Hemogram Result Value Ref Range WBC 8.8 4.0 - 9.5 x10(3)/mcL RBC 3.99 (L) 4.00 - 5.21 x10(6)/mcL Hemoglobin 12.6 11.7 - 15.5 gm/dL Hematocrit 34.2 (L) 35.7 - 45.8 % MCV 85.7 82.6 - 94.4 fL MCH 31.6 27.1 - 32.0 pg MCHC 36.8 (H) 31.7 - 35.0 gm/dL Platelets 217 145 - 357 x10(3)/mcL RDWSD 35.8 (L) 37.0 - 46.0 fL RDWCV 11.7 11.5 - 14.1 % MPV 9.1 7.6 - 12.9 fL nRBC % Auto 0.0 % nRBC Abs Auto 0.000 0.000 - 0.000 x10(3)/mcL Differential, Automated Result Value Ref Range Neutrophils % 42.1 % Neutr Abs (ANC) 3.70 1.70 - 6.10 x10(3)/mcL Lymphocytes % 44.3 % Lymphocytes Abs 3.9 (H) 0.9 - 3.2 x10(3)/mcL Monocytes % 9.3 % Monocyte Abs 0.8 0.3 - 0.9 x10(3)/mcL Eosinophils % 3.4 % Eosinophils Abs 0.3 0.0 - 0.4 x10(3)/mcL Basophils % 0.1 % Basophils Abs 0.0 0.0 - 0.1 x10(3)/mcL Immature Gran % 0.80 % Ellie Gran Abs 0.07 (H) 0.00 - 0.04 x10(3)/mcL CK Result Value Ref Range CK, Total 26 0 - 160 unit/L RADIOGRAPHIC EVALUATION As above PATHOLOGY EVALUATION As above ASSESSMENT: Daniela Gardner is a 26 y.o. female presents with ITP. Unclear trigger. Received IVIG and 4 days of Dex on 02/10, with rapid response, and normalization of platelets. Today, her only complaint is of diffuse myalgias, which seem to have started after IVIG. Unlikely related to steroids. CPK normal. No joint swelling or renal failure to suggest serum sickness. We will treat with NSAIDS and if no improvement, she can take Dex 4mg daily x 4 days. She will contact me with how she responds to the NSAIDs. She is also experiencing emotional lability, but she is managing this. In terms of ITP, we discussed the pathophysiology and the potential triggers for ITP, and the potential for a relapsing/ remitting course. We discussed to look for unexplained bruising and that she should contact us and get labs drawn, to determine platelet count. We discussed the potential treatment options from here. While a single course of Dex has been shownto be effective, 6 cycles likely increases the likelihood of halfway remission( based on Carmen et al, 2013). Ms Gardner in interested in this. We will plan on giving Dexamethasone 40mg daily x 4 days every 21 days for 6 (total) cycles. RTC on 03/03 for labs, toxicity check, and consideration of cycle 2, or else stop and observe for relapse if toxicity is ongoing. Yovani Fajardo MD Pager: [phone] 02/17/2017 documented in this encounter Plan of Treatment Not on file documented as of this encounter Visit Diagnoses Diagnosis Acute ITP Immune thrombocytopenic purpura documented in this encounter Care Teams Pacs Administrator Relationship Specialty Start Date End Date Presley Santillan MD [address] [place] [address] PCP - General Internal Medicine 02/10/17 documented as of this encounter
--- OUTSIDE RECORDS SUMMARY | 2024-05-03 07:20 | XMS_ITS | Encounter Summary ---
Author Organization [facility] Address [facility] [place] [address] Care Team Providers Care Waredresser Name Role Phone Presley Santillan MD Primary Care Provider [phone] Encounter Details Date Type Department Care Team (Latest Contact Info) Description 02/17/2017 9:50 AM EDT - 02/17/2017 11:59 PM EDT Hospital Encounter [place]ology [place] [address] Thrombocytopenia Discharge Disposition: Home Social History Tobacco Use [...] Procedure Name Priority Date/Time Associated Diagnosis Comments HEMOGRAM Routine 02/17/2017 10:05 AM EDT Thrombocytopenia DIFFERENTIAL, AUTOMATED Routine 02/17/2017 10:05 AM EDT Thrombocytopenia CBC (WITH DIFF) Routine 02/17/2017 10:05 AM EDT Thrombocytopenia CK Routine 02/17/2017 10:05 AM EDT COMPREHENSIVE METABOLIC PANEL Routine 02/17/2017 10:05 AM EDT Thrombocytopenia documented in this encounter Results * CK (02/17/2017 10:05 AM EDT) Pathologist [facility] Creatine Kinase 26 0 - 160 unit/L [facility] Blood specimen (specimen) Venous Draw / Unknown 02/17/2017 10:05 AM EDT 02/17/2017 10:16 AM EDT Narrative Resulting Agency Comment Spec In Lab Yovani Fajardo MD CHEMISTRY ORDERABL ES [facility] [place] [address] * (ABNORMAL) Differential, Automated (02/17/2017 10:05 AM EDT) Pathologist [facility] Neutrophil % 42.1 % [facility] Neutrophil Absolute 3.70 1.70 - 6.10 x10(3)/mc L [facility] Lymph % 44.3 % [facility] Lymphocytes Abs 3.9(H) 0.9 - 3.2 x10(3)/mc L [facility] Monocyte % 9.3 % [facility] Monocyte Abs 0.8 0.3 - 0.9 x10(3)/mc L [facility] Eos % 3.4 % [facility] Eosinophils Abs 0.3 0.0 - 0.4 x10(3)/[facility] Basophil % 0.1 % [facility] Baso Absolute 0.0 0.0 - 0.1 x10(3)/[facility] Immature Gran % 0.80 % [facility] Comment: Immature granulocytes(IG's)percentage and absolute count will include metamyelocytes, myelocytes, and promyelocytes. Blood smears from CBCs yielding IG's will be scanned manually for concordance. If this scan disagrees with the automated IG or if promyelocytes are noted, a manual differential will be performed. Immature Gran Absolute 0.07(H) 0.00 - 0.04 x10(3)/[facility] Blood specimen (specimen) 02/17/2017 10:05 AM EDT 02/17/2017 10:09 AM EDT Narrative Resulting Agency Comment Spec In Lab Yovani Fajardo MD HEMATOLOGY ORDERAB LES [facility] [place] [address] * (ABNORMAL) Hemogram (02/17/2017 10:05 AM EDT) White Blood Cell 8.8 4.0 - 9.5 x10(3)/[facility] Red Blood Cell 3.99(L) 4.00 - 5.21 x10(6)/[facility] Hemoglobin 12.6 11.7 - 15.5 gm/dL [facility] Hematocrit 34.2(L) 35.7 - 45.8 % [facility] Mean Cell Volume 85.7 82.6 - 94.4 fL [facility] Mean Cell Hemoglobin 31.6 27.1 - 32.0 pg [facility] Mean Cell Hemoglobin Concentration 36.8(H) 31.7 - 35.0 gm/dL [facility] Platelet 217 145 - 357 x10(3)/mc L [facility] RDW Standard Deviation 35.8(L) 37.0 - 46.0 fL [facility] RDW coefficient of variation 11.7 11.5 - 14.1 % [facility] Mean Platelet Volume 9.1 7.6 - 12.9 fL [facility] NRBC% auto 0.0 % [facility] NRBC Absolute 0.000 0.000 - 0.000 x10(3)/mc L [facility] Blood specimen (specimen) 02/17/2017 10:05 AM EDT 02/17/2017 10:09 AM EDT Narrative Resulting Agency Comment Spec In Lab Yovani Fajardo MD HEMATOLOGY ORDERAB LES [facility] [place] [address] * Comprehensive metabolic panel (non-fasting) (02/17/2017 10:05 AM EDT) Glucose 89 65 - 199 mg/dL [facility] Comment:Diabetes: >=200 mg/d L plus symptoms Blood Urea Nitrogen 10 8 - 18 mg/dL [facility] Creatinine 0.93 0.70 - 1.20 mg/dL [facility] Comment: Please note that the pediatric reference intervals supplied above were not validated at [facility]. Results from pediatric patients should be interpreted in conjunction to the patient's age, height and muscle mass. Sodium 138 135 - 145 mmol/L [facility] Potassium 3.8 3.5 - 5.0 mmol/L [facility] Comment: Please note: ??Patients with WBC >100,000 may have falsely elevated Potassium levels. ??For accurate Potassium quantification in these patients send serum separator tube (gold top) for subsequent determinations. ??Contact the Clinical Chemistry Laboratory if there are any questions. Chloride 101 98 - 107 mmol/L [facility] Carbon Dioxide 25 22 - 31 mmol/L [facility] Anion Gap 12 5 - 15 mmol/L [facility] Calcium 8.7 8.5 - 10.5 mg/dL [facility] Protein, Total 7.3 6.1 - 8.0 gm/dL [facility] Albumin 3.8 3.2 - 5.2 gm/dL [facility] Aspartate Aminotransferase 12 0 - 30 unit/L [facility] Alanine Aminotransferase 8 0 - 30 unit/L [facility] Alkaline Phosphatase 41 40 - 104 unit/L [facility] Bilirubin, Total 0.9 0.2 - 1.3 mg/dL [facility] Est Glomerular Filtration Rate >60 >=60 [facility] Comment: This estimated GFR (eGFR) [...] the following links into your internet browser. [email or web address] Blood specimen (specimen) 02/17/2017 10:05 AM EDT 02/17/2017 10:09 AM EDT Narrative Resulting Agency Comment Spec In Lab Yovani Fajardo MD CHEMISTRY ORDERABL ES [facility] [place] [address] documented in this encounter Visit Diagnoses Diagnosis Thrombocytopenia Thrombocytopenia, unspecified documented in this encounter Care Teams Waredresser Relationship Specialty Start Date End Date Presley Santillan MD [address] [place] [address] PCP - General Internal Medicine 02/10/17 documented as of this encounter
--- OUTSIDE RECORDS SUMMARY | 2024-05-03 07:20 | XMS_ITS | Encounter Summary ---
Author Organization [facility] [place] [address] Care Team Providers Care Child And Family Therapist Name Role Phone Presley Santillan MD Primary Care Provider [phone] Reason for Visit * Reason Onset Date Comments Labs Only 06/01/2017 Encounter Details Date Type Department Care Team (Late st Contact Info) Description 06/01/2017 Telephone Hematology/Oncology at [address] [address] Anamaria Lamas RN Labs Only [...] Telephone Encounter - Anamaria Lamas RN - 06/01/2017 4:47 PM EST Pt called and wanted to know what platelet count from today was. Told her it was 209k. Asked why she went for labs today as she went last week. She said she has appointment this wed with Angeli Hill and Angeli wanted her to get Thursday before appointment. She also states she went last week as she was having migraines and felt that might affect the platelets. She states she will not be taking last d ose of dexamethasone as it messes with her emotions to much. Angeli Dao NP updated via this note. documented in this encounter Plan of Treatment Not on file documented as of this encounter Visit Diagnoses Not on filedocumented in this encounter Care Teams Child And Family Therapist Relationship Specialty Start Date End Date Presley Snatillan MD [address] [place] [address] PCP - General Internal Medicine 02/10/17 documented as of this encounter
--- OUTSIDE RECORDS SUMMARY | 2024-05-03 07:20 | XMS_ITS | Encounter Summary ---
Author Organization [facility] [place] [address] Care Team Providers Care Help Desk Assistant Name Role Phone Presley Santillan MD Primary Care Provider [phone] Reason for Visit * Reason Onset Date Comments Labs Only 05/05/2017 Encounter Details Date Type Department Care Team (Late st Contact Info) Description 05/05/2017 Telephone Hematology Oncology at [address] [address] Kandis Hill RN Labs Only Social History Tobacco Use [...] Telephone Encounter - Kandis Hill RN - 05/05/2017 8:56 AM EST Patient had labs today at [facility] and was asking for results. Normal lab values reported to patient. Patient satisfied with exchange. documented in this encounter Plan of Treatment Not on file documented as of this encounter Visit Diagnoses Not on filedocumented in this encounter Care Teams Help Desk Assistant Relationship Specialty Start Date End Date Presley Santillan MD [address] [place] [address] PCP - General Internal Medicine 02/10/17 documented as of this encounter
--- OUTSIDE RECORDS SUMMARY | 2024-05-03 07:20 | XMS_ITS | Encounter Summary ---
Author Organization [facility] [place] [address] Care Team Providers Care Moulder Operator Name Role Phone Presley Santillan MD Primary Care Provider [phone] Encounter Details Date Type Department Care Team (Late st Contact Info) Description 03/05/2017 Tele[place] [address] Litzy Barron, PRODUCTION LAPPING MACHINE OPERATOR [facility] [place] [address] Social History Tobacco Use Types Packs/Day Years Used Date Smoking Tobacco: Former Cigarettes 0 02/17/2010 - 02/17/2011 Smokeless Tobacco: Never Comments:2 cigarettes a week Sex and Gender Information Value Date Recorded Sex Assigned at Not on file Gender Identity Not on file Sexual Orientation Not on file documented as of this encounter Miscellaneous Notes * Telephone Encounter - Litzy Barron, KOTA - 03/05/2017 3:23 PM EDT We reviewed her labs particularly mildly elevated ESR but normal CRP. Low platelet- followed by hematology. She doing well,as far as her GI goes, having normal BM. No bleeding. Of note her TSH is up. She has a f/u with her PCP tomorrow and I will forward this reports to them for further evaluation . May need to check T3-T4. Her stool studies were negative for infection. Her calprotectin is still in process and will f/u on this. We will f/u MRE and colonoscopy findings. Ref. Range 03/02/2017 16:30 CAMPYLOBACTER ANTIGEN Unknown Immunoassay Negative for Campylobacter Antigen C Diff Screen Latest Ref Range: Negative Negative SHIGA TOXIN ASSAY Unknown EIA Negative for Shiga Toxin 1 EIA Negative for Shiga Toxin 2 STOOL CULTURE Unknown No enteric pathogens isolated Labs: Ref. Range 03/03/2017 08:59 WBC Latest Ref Range: 4.0 - 9.5 x10(3)/mcL 6.1 RBC Latest Ref Range: 4.00 - 5.21 x10(6)/mcL 3.87 (L) Hemoglobin Latest Ref Range: 11.7 - 15.5 gm/dL 12.2 Hematocrit Latest Ref Range: 35.7 - 45.8 % 35.3 (L) MCV Latest Ref Range: 82.6 - 94.4 fL 91.2 MCH Latest Ref Range: 27.1 - 32.0 pg 31.5 MCHC Latest Ref Range: 31.7 - 35.0 gm/dL 34.6 RDWSD Latest Ref Range: 37.0 - 46.0 fL 43.8 RDWCV Latest Ref Range: 11.5 - 14.1 % 13.3 Platelets Latest Ref Range: 145 - 357 x10(3)/mcL 80 (L) MPV Latest Ref Range: 7.6 - 12.9 fL 10.9 Plat Immature % Latest Ref Range: 0.0 - 7.4 % nRBC % Auto Latest Units: % 0.0 nRBC Abs Auto Latest Ref Range: 0.000 - 0.000 x10(3)/mcL 0.000 Neutr Abs (ANC) Latest Ref Range: 1.70 - 6.10 x10(3)/mcL 3.16 Neutrophils % Latest Units: % 51.7 Immature Gran % Latest Units: % 0.20 Lymphocytes % Latest Units: % 35.0 Monocytes % Latest Units: % 6.7 Eosinophils % Latest Units: % 5.7 Basophils % Latest Units: % 0.7 Ellie Gran Abs Latest Ref Range: 0.00 - 0.04 x10(3)/mcL 0.01 Lymphocytes Abs Latest Ref Range: 0.9 - 3.2 x10(3)/mcL 2.1 Monocyte Abs Latest Ref Range: 0.3 - 0.9 x10(3)/mcL 0.4 Eosinophils Abs Latest Ref Range: 0.0 - 0.4 x10(3)/mcL 0.4 Basophils Abs Latest Ref Range: 0.0 - 0.1 x10(3)/mcL 0.0 Sed Rate Latest Ref Range: 0 - 20 mm/hr 38 (H) Sodium Latest Ref Range: 135 - 145 mmol/L 142 Potassium Latest Ref Range: 3.5 - 5.0 mmol/L 3.9 Chloride Latest Ref Range: 98 - 107 mmol/L 103 CO2 Latest Ref Range: 22 - 31 mmol/L 24 Anion Gap Latest Ref Range: 5 - 15 mmol/L 15 BUN Latest Ref Range: 8 - 18 mg/dL 12 Creatinine Latest Ref Range: 0.70 - 1.20 mg/dL 0.95 Estimated GFR Latest Ref Range: >=60 >60 Glucose Lvl Latest Ref Range: 65 - 199 mg/dL 95 Calcium Latest Ref Range: 8.5 - 10.5 mg/dL 9.3 Total Protein Latest Ref Range: 6.1 - 8.0 gm/dL 7.4 Albumin Latest Ref Range: 3.2 - 5.2 gm/dL 4.4 Total Bilirubin Latest Ref Range: 0.2 - 1.3 mg/dL 0.5 Alk Phos Latest Ref Range: 40 - 104 unit/L 49 AST Latest Ref Range: 0 - 30 unit/L 24 ALT Latest Ref Range: 0 - 30 unit/L 29 CRP Latest Ref Range: <=4.9 mg/L 1.8 TSH Latest Ref Range: 0.27 - 4.20 mlU/ML 7.90 (H) documented in this encounter Plan of Treatment Not on file documented as of this encounter Visit Diagnoses Not on filedocumented in this encounter Care Teams Moulder Operator Relationship Specialty Start Date End Date Presley Santillan MD [address] [place] [address] PCP - General Internal Medicine 02/10/17 documented as of this encounter
--- OUTSIDE RECORDS SUMMARY | 2024-05-03 07:20 | XMS_ITS | Encounter Summary ---
Author Organization [facility] [place] [address] Care Team Providers Care Liability Analyst Name Role Phone Presley Santillan MD Primary Care Provider Reason for Referral * Diagnostic Test (Routine) - Closed Specialty Diagnoses / Procedures Referred By Contac t Referred To Contact Radiology Diagnoses Alternating constipation and diarrhea Abdominal pain, unspecified location Procedures MRI Enterography wwo Contrast Litzy Barron APRN [facility] [place] [address] [place] [address] Referral ID Status Reason Start Date Expiration Date V isits Requested Visits Authorized [id number] Closed Specialty Service Requested 04/06/2017 06/04/2017 1 1 Reason for Visit * Diagnostic Test (Routine) - Closed Specialty Diagnoses / Procedures Referred By Contac t Referred To Contact Radiology Diagnoses Alternating constipation and diarrhea Abdominal pain, unspecified location Procedures MRI Enterography wwo Contrast Litzy Barron APRN [facility] [place] [address] [place] [address] Referral ID Status Reason Start Date Expiration Date V isits Requested Visits Authorized [id number] Closed Specialty Service Requested 04/06/2017 06/04/2017 1 1 Encounter Details Date Type Department Care Team (Latest Contact Info) Description 04/17/2017 10:25 AM EDT - 04/17/2017 10:27 AM EDT Hospital Encounter MRI at [facility] [place] [address] Litzy Barron APRN [facility] [place] [address] Alternating constipation and diarrhea; Abdominal pain, unspecified [...] 02/17/2017 09/23/2017 documented as of this encounter Progress Notes * Jerry Urena RN - 04/14/2017 8:11 AM EDT MRI PRE-SEDATION ASSESSMENT NOTE NAME: Daniela Gardner AGE: 26 y.o. : 1990 [address] [place] [address] Female [phone] (home) Telephone Information: Presley Santillan MD No primary care provider on file. Allergies Allergen Reactions ??? [place] Other (See Comments) Abdominal pain ??? Cis Free Text Allergy environmental. CIS - Allergic Rhinitis ??? Gluten Other (See Comments) Abdominal pain/intestinal pain ??? Milk Containing Products Other (See Comments) Abdominal/intestinal pain ??? Peanut Other (See Comments) Abdominal pain ??? Yeast Other (See Comments) Abdominal/intestinal pain ??? Cis Free Text Allergy sugars. CIS - Sensitive Date/Time of call: April 14, 2017/8:11 AM/ PREVIOUS MRI SCAN? Yes HEIGHT: 5'3 WEIGHT: 140 pds SCHEDULED SCAN:MRI Enterography wwo Contrast SUBJECTIVE: claustrophobic CAN YOU LAY FLAT? yes AIRWAY ISSUES? no DO YOU HAVE ANY INVOLUNTARY MOVEMENTS? (explain) DO YOU HAVE ANY PAIN? yes DO YOU TAKE PAIN MED ON A DAILY BASIS? no ASSESSMENT: Po sedation with Ativan PLAN: ativan 1-2mg po Guidelines for MRI Pre-Procedures Laboratory Studies: GFR Date of lab draw 1. Creatinine studies (GFR level needed) within 90 days of scan ??? 70 yo or older if they are getting contrast ??? 50 years and older if they are diabetic and getting contrast ( XXX ) You must have a otr van cdl truck driver present when you check in. This patient has been informed that they require a otr van cdl truck driver to drive them home after this procedure. In the absence of a otr van cdl truck driver, IR will not be able to sedate for your scan. Pt verbalized understanding of these instructions during the pre-procedure education via phone. Yes Dulce of otr van cdl truck driver: Mom- carrier Phone number PRIOR SCAN DATE/S SEDATION TYPE SUCCESSFUL MRI enterography w/wo Ativan 1 mg PO x 2 Of note: 2nd dose given 2/2 delay in obtaining MR (awaiting effect of oral contrast); 2nd pill adm 3 hours after first one. Revised 07/13/15 documented in this encounter Plan of Treatment Not on file documented as of this encounter Procedures Procedure Name Priority Date/Time Associated Diagnosis Comments MRI ENTEROGRAPHY WITH/WO CONTRAST Routine 04/17/2017 5:00 PM EDT Alternating constipation and diarrhea Abdominal pain, unspecified location documented in this encounter Results * MRI Enterography wwo [...] 04/20/2017 9:36 AM 9:36 AM Litzy Barron APRN IMG MRI ORDERABLE S documented in this encounter Visit Diagnoses Diagnosis Alternating constipation and diarrhea Other symptoms involving digestive system Abdominal pain, unspecified location documented in this encounter Administered Medications Inactive Administered Medications - up to 3 most recent administrations Medication Order MAR Action Action Date Dose Rate Site glucagon (human recombinant) injection SolR 1 mg 1 mg, Intramuscular, ONCE, 1 dose, On Thu04/17/17 at 1315, Routine Given 04/17/2017 4:35 PM EDT 1 mg LORazepam (ATIVAN) tablet 1 mg 1 mg, Oral, ONCE PRN, 2 doses, Starting on Thu04/17/17 at 1156, Until Thu04/17/17 at 1502, Anxiety, Angio/IR (Day of Procedure), Routine Given 04/17/2017 12:03 PM EDT 1 mg LORazepam (ATIVAN) tablet 1 mg 1 mg, Oral, ONCE PRN, 1 dose, Starting on Thu04/17/17 at 1502, Until Thu04/17/17 at 1507, Anxiety, Angio/IR (Day of Procedure), Routine Given 04/17/2017 3:07 PM EDT 1 mg documented in this encounter Care Teams Liability Analyst Relationship Specialty Start Date End Date Presley Santillan MD [address] [place] [id number] PCP - General Internal Medicine 02/10/17 documented as of this encounter
--- OUTSIDE RECORDS SUMMARY | 2024-05-03 07:20 | XMS_ITS | Encounter Summary ---
Author Organization [facility] [address] Care Team Providers Care Brass Burnisher Name Role Phone Presley Santillan MD Primary Care Provider Reason for Visit * Reason Onset Date Comments Labs Only 05/25/2017 lab tracking Encounter Details Date Type Department Care Team (Late st Contact Info) Description 05/25/2017 Telephone Hematology/Oncology at [address] [phone] Anamaria Lamas RN Labs Only [...] Telephone Encounter - Anamaria Lamas RN - 05/25/2017 4:50 PM EST LAB TRACKING Daniela Sharon Gardner [id number] Diagnosis: ITP Labs ordered: every 3 weeks [...] for 4 days every 3 weeks with labs, spoke with pt she is fine and agrees with plan. Date WBC HGB/HCT PLT ANC PLAN LABS 05/25/17 8.15 12.2/35.5 153k 5.21 Dex 40 mg 05/25-05/28 [facility] 06/1505/04/17 7.77 12.4/36.3 153k 4.74 Dex 40 mg 05/04-05/07 [facility] 05/2504/20/17 10.15 12.6/35.2 175k 5.67 Completed 4 days of dex 04/16/17 [facility] 05/04/17 04/10/17 10.44 12.3/36.1 112k 7.26 4ht cycle dex start 04/13. Prior to vs with Dr Whitfield on 04/2203/30/17 9.57 12.7/36.1 206k 5.04 4th Rituxan due03/31 Labs again on 04/0703/24/17 7.87 12/34.9 120k 5.13 3rd rituxan due 03/25 Labs again 03/31/17 03/16/17 11.79 12.1/34.8 129k 8.18 2nd Rituxan given 03/18 [facility] 03/2403/06/17 11.59 11.8/35.4 166k 9.67 1st rituxan given 03/11 [facility] 03/16 documented in this encounter Plan of Treatment Not on file documented as of this encounter Visit Diagnoses Not on filedocumented in this encounter Care Teams Brass Burnisher Relationship Specialty Start Date End Date Presley Santillan MD [address] [place] [address] PCP - General Internal Medicine 02/10/17 documented as of this encounter
--- OUTSIDE RECORDS SUMMARY | 2024-05-03 07:20 | XMS_ITS | Encounter Summary ---
Author Organization [facility] Address [facility] [place] [address] Care Team Providers Care Dip Lube Operator Name Role Phone Presley Santillan MD Primary Care Provider Encounter Details Date Type Department Care Team (Late st Contact Info) Description 06/25/2017 Telephone [place] [phone] Marino Smith MD [facility] [place] [address] Social History Tobacco Use Types Packs/Day Years [...] encounter Miscellaneous Notes * Telephone Encounter - Marino Smith MD - 06/25/2017 3:25 PM EST Patient calls endoscopy s/p [place]/EGD for chronic abdominal pain and diarrhea She underwent upper endoscopy and colonoscopy today. Exam was generally unremarkable with the exception of biopsies taken in the small bowel as well as throughout the entire examined colon. She notessome crampy discomfort with watery yellowish stool and flecks of blood. I provided reassurance thatthe bleeding is related to the biopsies taken today during the procedure. There are numerous biopsies taken throughout the length of the colon. If pain and diarrhea persists beyond her baseline chronic symptoms for the next 24 hours she will call and we can add Bentyl 10-20 mg 3 or 4 times daily. Otherwise I will see her in clinic July 13 as scheduled and we will await biopsies. Marino Smith MD [facility] [place] documented in this encounter Plan of Treatment Not on file documented as of this encounter Visit Diagnoses Not on filedocumented in this encounter Care Teams Dip Lube Operator Relationship Specialty Start Date End Date Presley Santillan MD [address] [place] [address] PCP - General Internal Medicine 02/10/17 documented as of this encounter
--- OUTSIDE RECORDS SUMMARY | 2024-05-03 07:20 | XMS_ITS | Encounter Summary ---
Author Organization [facility] Address [facility] [place] [address] Care Team Providers Care Net Programmer Analyst Name Role Phone Presley Santillan MD Primary Care Provider Encounter Details Date Type Department Care Team (Late st Contact Info) Description 09/23/2017 3:30 PM EDT Office Visit Hematology/Oncolog y at [address] [phone] Mercedez Whitfield MD [facility] [place] [address] Idiopathic thrombocytopenic purpura Social History Tobacco Use [...] Sign Reading Time Taken Comments Blood Pressure 118/60 09/23/2017 3:35 PM EDT Pulse 93 09/23/2017 3:35 PM EDT Temperature 37 ??C (98.6 ??F) 09/23/2017 3:35 PM EDT Respiratory Rate 16 09/23/2017 3:35 PM EDT Oxygen Saturation 100% 09/23/2017 3:35 PM EDT Inhaled Oxygen Concentration - - Weight 71.2 kg (157 lb) 09/23/2017 3:35 PM EDT Height 160 cm (5' 2.99) 09/23/2017 3:35 PM EDT Body Mass Index 27.82 09/23/2017 3:35 PM EDT documented in this encounter Progress Notes * Mercedez Whitfield MD - 09/23/2017 3:30 PM EDT Subjective: Patient ID: Daniela Gardner is a 26 y.o. female here for f/u of ITP Patient Active Problem List Diagnosis ??? Irritable bowel syndrome with both constipation and diarrhea ??? Acute ITP DX 02/12: Received IVIG [...] heard new murmor - having echo tomorrow. Notes occasional bruising, random, not sure where she gets them. Could be due to skin changes from the dex or due to just the estrogen of females which causes easy bruising. Acute bronchitis all winter long. Having sleep study for possible DIDIER. Saw GI with colo and thoughtto have IBS, not IBD, and treated with bentyl. She is getting PT for headaches. Thought that her mmsk tightness are causing head aches. Going to try dry needling - OK to do with normal plt count. Still in a relationship with his kids. Review of Systems Constitutional: Positive for fatigue and unexpected weight change due to steroids. Respiratory: Negative. Gastrointestinal: Negative. Genitourinary: Positive for [...] and oriented to person, place, and time. Lungs: clear Abd: soft normoactive BS; no palpable SM Skin: Skin is warm and dry. NO Pettechia - skin colored small raised papules along lower legs Psychiatric: Her behavior is normal. WBC- 7.27 HGB - 13.2 Plts- 201 Assessment and Plan: 1. ITP -Daniela has completed 5 cycles of Pulse Dex with normal platelet counts. Completed April 2017. She has struggled with s/e of dex - most being emotional at this time declines cycle 6. We did review at thsi point we will monitor for relapse - we will continue monthly CBC up to six months (October 2017) then change to q 2 mo cbc in December and Feb with appt in Feb. We reviewed s/sx of relapsespecifically abnormal bleeding and bruising. Other symptoms of dizziness, GI sx, headaches, ect all pre-date her ITP and steriod therapy - she will continue to follow with PCP for these. Daniela Gardner will return to clinic in 6 months. she will call before then if any concerns or changes in status. documented in this encounter Plan of Treatment Not on file documented as of this encounter Visit Diagnoses Diagnosis Idiopathic thrombocytopenic purpura Immune thrombocytopenic purpura documented in this encounter Care Teams Net Programmer Analyst Relationship Specialty Start Date End Date Presley Santillan MD [address] [place] [id number] PCP - General Internal Medicine 02/10/17 documented as of this encounter
--- OUTSIDE RECORDS SUMMARY | 2024-05-03 07:20 | XMS_ITS | Encounter Summary ---
Author Organization [facility] [address] Care Team Providers Care Sling Operator Name Role Phone Presley Santillan MD Primary Care Provider Encounter Details Date Type Department Care Team (Late st Contact Info) Description 03/04/2017 Telephone Hematology/Oncology at [address] [phone] Solo Emmanuel Social History Tobacco [...] * Telephone Encounter - Solo Emmanuel - 03/04/2017 4:40 PM EDT Talked to pt and let her know that her apt is 03/11 @ 10 pt agreed. documented in this encounter Plan of Treatment Not on file documented as of this encounter Visit Diagnoses Not on filedocumented in this encounter Care Teams Sling Operator Relationship Specialty Start Date End Date Presley Santillan MD [address] [place] [address] PCP - General Internal Medicine 02/10/17 documented as of this encounter
--- OUTSIDE RECORDS SUMMARY | 2024-05-03 07:20 | XMS_ITS | Encounter Summary ---
Author Organization [facility] Address [facility] [place] [address] Care Team Providers Care Heel Coverer Name Role Phone Presley Santillan MD Primary Care Provider Reason for Visit * Reason Comments Follow-up post-procedure Abdominal Pain Encounter Details Date Type Department Care Team (Late st Contact Info) Description 07/13/2017 9:30 AM EST Office [place] [address] Marino Smith MD [facility] [place] [address] Irritable bowel syndrome with diarrhea; Abdominal pain, generalized; Abdominal bloating; Functional diarrhea Social History Tobacco Use Types Packs/Day Years [...] Sign Reading Time Taken Comments Blood Pressure 121/61 07/13/2017 9:40 AM EST Pulse 105 07/13/2017 9:40 AM EST Temperature 36.9 ??C (98.5 ??F) 07/13/2017 9:40 AM ES T Respiratory Rate - - Oxygen Saturation - - Inhaled Oxygen Concentration - - Weight 68.3 kg (150 lb 9.6 oz) 07/13/2017 9:40 A M EST Height 160 cm (5' 3) 07/13/2017 9:40 AM EST Body Mass Index 26.68 07/13/2017 9:40 AM EST documented in this encounter Patient Instructions * Patient Instructions* Marino Smith MD - 07/13/2017 9:30 AM EST Trial of Bentyl 10-20mg 3-4 times daily. Start with 10 mg twice daily Probiotics are OK, either a supplement or yogurt/Kefir daily OK to use supplemental fiber 1 tablespoon daily Review the FODMAP diet and use as able. Also consider IBGard (lower abdominal cramps) and/or FDGard (mild nausea/heartburn like symptoms known as dyspepsia). documented in this encounter Progress Notes * Marino Smith MD - 07/13/2017 9:30 AM EST Gastroenterology Outpatient Progress Note Patient ID: Daniela Gardner is a 26 y.o. female with history of IBS who returns to clinic forfollow-up after recent colonoscopy and EGD. Patient Active Problem List Diagnosis ??? Irritable bowel syndrome with both constipation and diarrhea ??? Acute ITP Overview Note: DX 02/12: Received IVIG in house and 4 days of Dex on 02/10, with rapid response, and normalization of platelets. 03/03/17 - Cycle 2 pulse Dex and dose #1 Rituxan (plan for 4 weekly doses) Rituximab given weekly X 4 03/11/17 to 04/01/17. -Cycle 3 Pulse Dex due 03/24/17 -Cycle 4 pulse Dex 04/13/17 - Cycle 5 pulse Dex due 05/04/17 ?? Interim History: Ms. Gardner comes in today to follow-up recent colonoscopy and upper endoscopy. Both procedures were unremarkable with normal biopsies. She has had persistent lower abdominal pain and discomfort which is slightly more pronounced since having the colonoscopy. Pain is generally improved after moving herbowels. She has 2-3 bowel movements most days. She denies any blood in her stool except in the day after colonoscopy with biopsies. She is currently battling symptoms of upper respiratory infection possible flu. This is made her gastrointestinal symptoms more pronounced. She is not eating much food and still has lower abdominal pain. Abdominal symptoms are slightly more prominent than the last 6 months however otherwise similar to the symptoms that she has had over the last 3-5 years. She did have Rituxan treatments ??4 for her ITP in February and March along with some high-dose steroids. She has been off all steroids since early April. Review of Systems Constitutional: Negative for fever and unexpected weight change. HENT: Negative for mouth sores. Eyes: Negative for pain and redness. Respiratory: Negative for cough and shortness of breath. Cardiovascular: Negative for chest pain and palpitations. Gastrointestinal: See above Positive for nausea, abdominal pain, diarrhea, and abdominal distention. Genitourinary: Negative for dysuria. Musculoskeletal: Negative for joint swelling and arthralgias. Skin: Negative for rash. Current Outpatient Prescriptions Medication Sig Dispense Refill ??? sertraline (ZOLOFT) 25 mg Tablet ??? Psyllium Seed-Sucrose (0) Powder Take by mouth. ??? albuterol (PROVENTIL) 2.5 mg /3 mL (0.083 %) Solution for Nebulization ??? acetaminophen-codeine (TYLENOL #3) 300-30 mg Tablet ??? cyclobenzaprine (FLEXERIL) 5 mg Tablet ??? benzonatate (TESSALON) 100 mg Capsule ??? SUMAtriptan (IMITREX) 100 mg Tablet Take 100 mg by mouth as needed for Migraine. ??? QUEtiapine (SEROQUEL) 100 mg Tablet Take 100 mg by mouth nightly. ??? rifAXIMin (XIFAXIN) 550 mg Tablet Take 1 tablet by mouth 3 times daily. 42 tablet 1 ??? dicyclomine (BENTYL) 10 mg Capsule Take 1 capsule by mouth 4 times daily. 120 capsule 5 ??? pantoprazole (PROTONIX) 40 mg Tablet, Delayed Release (E.C.) Take 1 tablet by mouth daily. (Patient not taking: Reported on 07/13/2017) 30 tablet 3 No current facility-administered medications for this visit. Physical Examination: BP 121/61 Pulse (!) 105 Temp 36.9 ??C (98.5 ??F) (Oral) Ht 160 cm (5' 3) Wt 68.3 kg (150 lb 9.6 oz) BMI 26.68 kg/m2 General: Pleasant, cooperative, NAD HEENT: NC/AT, anicteric, MMM without exudate or discharge CHEST: CTA bilaterally without wheeze, rale or rhonchi CVS: RRR, normal s1/s2 ABD: soft, non-tender, non-distended, NABS Rectal: deferred Extremities: WWP, no clubbing cyanosis or edema Skin: Warm and dry Labs: Reviewed in EDH. Pertinent labs included below Colonoscopy and upper endoscopy normal biopsies normal. Impression: Daniela Gardner is a 26 y.o. female with history of IBS with diarrhea. She does occasionally have symptoms of mild constipation however however predominant symptom is diarrhea. Recent colonoscopy and upper endoscopy were unremarkable with biopsies taken in the small bowel both proximal and distal as well as biopsies throughout the colon which were negative for any inflammatory process. She did have recent diagnosis of ITP and required multiple courses of steroids as well as treatmentwith Rituxan per hematology oncology. She has completed this therapy and is now weaned off of steroids. Colonoscopy was performed off of steroids with no evidence of inflammation. It is possible thatRituxan did increase her gastrointestinal symptoms as it is associated with nausea as well as diarrhea. Given there is no evidence of any inflammatory process the diagnosis of IBS with diarrhea 6 minutesto explain her current symptoms. Today we reviewed the 5 map diet and provided handouts. I also suggested regular use of supplemental fiber as well as probiotics. We can also add Bentyl. Will start at 10 mg 2-3 times daily and titrate upward as needed. We also discussed IBGard and FDGard. Recommendations # Trial of Bentyl 10-20mg 3-4 times daily. Start with 10 mg twice daily # Probiotics are OK, either a supplement or yogurt/Kefir daily # OK to use supplemental fiber 1 tablespoon daily # Review the FODMAP diet and use as able. # Also consider IBGard (lower abdominal cramps) and/or FDGard (mild nausea/heartburn like symptoms known as dyspepsia). I spent 30 min of this 42 min visit counseling the patient in the issues outlined above. Marino Smith MD [facility] Gastroenterology documented in this encounter Plan of Treatment Not on file documented as of this encounter Visit Diagnoses Diagnosis Irritable bowel syndrome with diarrhea Irritable bowel syndrome Abdominal pain, generalized Abdominal bloating Flatulence, eructation, and gas pain Functional diarrhea documented in this encounter Care Teams Heel Coverer Relationship Specialty Start Date End Date Presley Santillan MD [address] [place] [address] PCP - General Internal Medicine 02/10/17 documented as of this encounter
--- OUTSIDE RECORDS SUMMARY | 2024-05-03 07:20 | XMS_ITS | Encounter Summary ---
Author Organization [facility] [place] [address] Care Team Providers Care Director Business Development Name Role Phone Presley Santillan MD Primary Care Provider [phone] Reason for Visit * Reason Onset Date Comments Labs Only 07/31/2017 Lab Tracking Encounter Details Date Type Department Care Team (Late st Contact Info) Description 07/31/2017 Telephone Hematology Oncology at [address] [phone] Carlita Hoskins RN Labs Only [...] Telephone Encounter - Carlita Hoskins RN - 07/31/2017 4:45 PM EST LAB TRACKING Daniela Gardner [id number] Diagnosis: ITP Labs ordered: every 4 weeks [...] is well without any bleeding issues. Plan:Labs again in a month, first week of august. Date WBC HGB/HCT PLT ANC PLAN LABS 07/31/17 8.59 12.8/38.0 201k 6.04 Patient has been under the weather. Labs again first week of August. 07/07/17 8.24 12.5/36.7 237k 5.45 Had bruising on knees and elbows [facility] 07/28/18 06/01/17 7.27 12.2/36.4 209k 3.86 Stopped dex [facility] 06/30/16 05/25/17 8.15 12.2/35.5 153k 5.21 Dex 40 mg 05/25-05/28 [facility] 06/1505/04/17 7.77 12.4/36.3 153k 4.74 Dex 40 mg 05/04-05/07 [facility] 05/2504/20/17 10.15 12.6/35.2 175k 5.67 Completed 4 days of dex 04/16/17 [facility] 05/04/17 04/10/17 10.44 12.3/36.1 112k 7.26 4ht cycle dex start 04/13. Prior to vs with Dr Whitfield on 04/2203/30/17 9.57 12.7/36.1 206k 5.04 4th Rituxan due03/31 Labs again on 04/0703/24/17 7.87 12/34.9 120k 5.13 3rd rituxan due 03/25 Labs again 03/31/17 03/16/17 11.79 12.1/34.8 129k 8.18 2nd Rituxan given 03/18 [facility] 03/2403/06/17 11.59 11.8/35.4 166k 9.67 1st rituxan given 03/11 [facility] 03/16 documented in this encounter Plan of Treatment Not on file documented as of this encounter Visit Diagnoses Not on filedocumented in this encounter Care Teams Director Business Development Relationship Specialty Start Date End Date Presley Santillan MD [address] [place] [address] PCP - General Internal Medicine 02/10/17 documented as of this encounter
--- OUTSIDE RECORDS SUMMARY | 2024-05-03 07:20 | XMS_ITS | Encounter Summary ---
Author Organization [facility] Address [facility] [place] [address] Care Team Providers Care Tractor Crane Operator Name Role Phone Presley Santillan MD Primary Care Provider Encounter Details Date Type Department Care Team (Late st Contact Info) Description 04/22/2017 12:30 PM EDT Office Visit Hematology/Oncology at [address] [phone] Mercedez Whitfield MD [facility] [address] [place] [address] Acute ITP Social History Tobacco Use Types [...] Sign Reading Time Taken Comments Blood Pressure 130/74 04/22/2017 12:43 PM EDT Pulse 99 04/22/2017 12:43 PM EDT Temperature 36.4 ??C (97.5 ??F) 04/22/2017 12:43 PM E DT Respiratory Rate 16 04/22/2017 12:43 PM EDT Oxygen Saturation 100% 04/22/2017 12:43 PM EDT Inhaled Oxygen Concentration - - Weight 66.2 kg (146 lb) 04/22/2017 12:43 PM EDT Height 160 cm (5' 2.99) 04/22/2017 12:43 PM EDT Body Mass Index 25.87 04/22/2017 12:43 PM EDT documented in this encounter Progress Notes * Mercedez Whitfield MD - 04/22/2017 12:30 PM EDT Subjective: Patient ID: Daniela Gardner [...] being seen today at her request. She completed #4 (final dose) of Rituxan. Much better today on Zoloft. Has a cold. No fevers. No ecchymoses. Notes irregular menstrual periods. No as much menorrhagia as before treatment. Review of Systems Constitutional: Positive for fatigue. Negative for chills and fever. Gastrointestinal: Colitis symptoms chronic and stable Skin: Acne break outs Hematological: Negative. Psychiatric/Behavioral: Patient is appropriate on exam today. Objective: Physical Exam Constitutional: She is oriented to person, place, and time. She appears well- developed and well-nourished. No distress. Wearing a mask, congested Eyes: Conjunctivae are normal. No thrush Neck: Normal range of motion. Pulmonary/Chest: Effort normal. Abd: No palpable SM Neurological: She is alert and oriented to person, place, and time. Skin: Skin is warm and dry. Mild acne on face Psychiatric: She has a normal mood and affect. Date WBC HGB/HCT PLT ANC PLAN LABS 04/20/17 10.1 12.6 175k 5.6 Continue dex every 3 weeks She will call when labs done ?? 03/30/17 ?? 9.57 ?? 12.7/36.1 ?? 206k ?? 5.04 ?? 4th Rituxan on 03/31/17 Before next office visit ?? 03/24/17 7.87 12/34.9 120k 5.13 3rd rituxan due 03/25 Labs again 03/31/17 03/16/17 11.79 12.1/34.8 129k 8.18 2nd Rituxan given 03/18 [facility] 03/2403/06/17 11.59 11.8/35.4 166k 9.67 1st rituxan given 03/11 [facility] 03/16 BP 130/74 (Patient Position: Sitting) Pulse 99 Temp 36.4 ??C (97.5 ??F) (Oral) Resp 16 Ht 160 cm (5' 2.99) Wt 66.2 kg (146 lb) SpO2 100% BMI 25.87 kg/m2 Assessment and Plan: ITP - Daniela has had nice response IVIG followed by Pulse Dex and Rituxan therapy. See Problem list above for schedule of rituxan and dex tapers. Next dex pulse starts on 05/04/17. Mood swings - Dr Santillan started her on Zoloft which she thinks is helping a lot. Viral URI sx - cold sx. She has not felt well but no fevers. Will not need ATB at this time. I would like Daniela to have a CBC drawn at least once before each cycle of dexamethasone. She sometimes is curious and wants to know her platelet count at other times, and has a standing order. Therefore we agreed that if she gets a CBC drawn at any time , she will call her nurse is to let us know so that we can track the labs for her. RTC in 5-6 weeks. She will call before then if any changes in status. documented in this encounter Plan of Treatment Not on file documented as of this encounter Visit Diagnoses Diagnosis Acute ITP Immune thrombocytopenic purpura documented in this encounter Care Teams Tractor Crane Operator Relationship Specialty Start Date End Date Presley Santillan MD [address] [place] [address] PCP - General Internal Medicine 02/10/17 documented as of this encounter
--- OUTSIDE RECORDS SUMMARY | 2024-05-03 07:20 | XMS_ITS | Encounter Summary ---
Author Organization [facility] Address [facility] [place] [address] Care Team Providers Care Household Appliance Mechanic Name Role Phone Presley Santillan MD Primary Care Provider Encounter Details Date Type Department Care Team (Late st Contact Info) Description 08/04/2017 Orders Only Hematology [place] [address] Yovani Fajardo MD [facility] [address] [place] [address] Social History Tobacco Use Types Packs/Day Years [...] on filedocumented in this encounter Care Teams Household Appliance Mechanic Relationship Specialty Start Date End Date Presley Santillan MD [address] [place] [address] PCP - General Internal Medicine 02/10/17 documented as of this encounter
--- OUTSIDE RECORDS SUMMARY | 2024-05-03 07:20 | XMS_ITS | Encounter Summary ---
Author Organization [facility] Address [facility] [place] [address] Care Team Providers Care Peanut Shaker Name Role Phone Presley Santillan MD Primary Care Provider Encounter Details Date Type Department Care Team (Latest Contact Info) Description 03/02/2017 8:45 AM EDT - 03/02/2017 11:59 PM EDT Hospital Encounter Laboratory [facility] [place] [phone] Discharge Disposition: Home Social History Tobacco Use [...] on filedocumented in this encounter Care Teams Peanut Shaker Relationship Specialty Start Date End Date Presley Santillan MD [address] [place] [address] PCP - General Internal Medicine 02/10/17 documented as of this encounter
--- OUTSIDE RECORDS SUMMARY | 2024-05-03 07:20 | XMS_ITS | Encounter Summary ---
Author Organization [facility] [place] [address] Care Team Providers Care Cardiology Consultant Name Role Phone Presley Santillan MD Primary Care Provider [phone] Reason for Visit * Reason Onset Date Comments Labs Only 05/04/2017 Patient calling to have lab results Encounter Details Date Type Department Care Team (Late st Contact Info) Description 05/04/2017 Telephone Hematology/Oncology at [address] [phone] Geovanna Quintero RN Labs Only (Patient calling to have lab results) Social History Tobacco Use Types Packs/Day Years Used Date Smoking Tobacco: Former Cigarettes 0 02/17/2010 - 02/17/2011 Smokeless Tobacco: Never Comments:quit years ago Sex and Gender Information Value Date Recorded Sex Assigned at Not on file Gender Identity Not on file Sexual Orientation Not on file documented as of this encounter Miscellaneous Notes * Telephone Encounter - Geovanna Quintero RN - 05/04/2017 5:00 PM EST Patient had labs today at [facility] and was asking for results. Normal lab values reported to patient. Patient satisfied with exchange. documented in this encounter Plan of Treatment Not on file documented as of this encounter Visit Diagnoses Not on filedocumented in this encounter Care Teams Cardiology Consultant Relationship Specialty Start Date End Date Presley Santillan MD [address] [place] [address] PCP - General Internal Medicine 02/10/17 documented as of this encounter
--- OUTSIDE RECORDS SUMMARY | 2024-05-03 07:20 | XMS_ITS | Encounter Summary ---
Author Organization [facility] [place] [address] Care Team Providers Care Respiratory Clinician Name Role Phone Presley Santillan MD Primary Care Provider [phone] Reason for Visit * Reason Comments Chemotherapy Rituxan #4 of 4 plan rodolfo * Treatment/Therapy Plan Authorization (Routine) - Closed Specialty Diagnoses / Procedures Referred By Contac t Referred To Contact Hematology and Oncology Diagnoses Acute ITP Immune thrombocytopenic purpura Procedures TC RITUXIMAB, 100MG, INJECTION (RITUXAN) Yovani Fajardo MD [facility] [address] [place] [address] [facility] [address] [place] [address] Referral ID Status Reason Start Date Expiration Date Visits Re quested Visits Authorized [id number] Closed 03/06/2017 03/06/2018 52 52 Encounter Details Date Type Department Care Team (Late st Contact Info) Description 04/01/2017 10:00 AM EDT Infusion Hematology Oncology at [address] [phone] Acute ITP Social History Tobacco Use Types Packs/Day Years Used Date Smoking Tobacco: Former Cigarettes 0 02/17/2010 - 02/17/2011 Smokeless Tobacco: Never Comments:quit years ago Sex and Gender Information Value Date Recorded Sex Assigned at Not on file Gender Identity Not on file Sexual Orientation Not on file documented as of this encounter Progress Notes * Carlita Hoskins RN - 04/01/2017 10:00 AM EDT INFUSION THERAPY ADMINISTRATION NOTES DIAGNOSIS: ITP REASON FOR VISIT: Rituxan Treatment # 4 SUBJECTIVE Daniela Gardner offers no complaints. OBJECTIVE LAB DATA: Platelet Count IV ACCESS: PIV placed in left hand. REACTIONS (DESCRIPTION, TIME, INTERVENTION AND EFFECTIVENESS) Daniela Gardner was awake, alert and tolerated treatment well. Requested that her Rituxan runover the 2nd time rate as she doesn't like it when it is run fast. PLAN Return to clinic per routine. documented [...] 650 mg, Oral, ONCE, 1 dose, On Thu04/01/17 at 1100, Maximum dose of acetaminophen is 4000 mg from all sources in 24 hours., Routine Given 04/01/2017 11:05 AM EDT 650 mg dexamethasone (DECADRON) injection 10 mg 10 mg, Intravenous, ONCE, 1 dose, On Thu04/01/17 at 1100 Given 04/01/2017 11:05 AM EDT 10 mg diphenhydrAMINE (BENADRYL) capsule 50 mg 50 mg, Oral, ONCE, 1 dose, On Thu04/01/17 at 1100, Routine Given 04/01/2017 11:05 AM EDT 50 mg riTUXimab (RITUXAN) 600 mg in sodium chloride 0.9% 300 mL infusion 600 mg, Intravenous, ONCE, 1 dose, On Thu04/01/17 at 1100, Dose 4 of 4 New Bag 04/01/2017 11:55 AM EDT 600 mg documented in this encounter Care Teams Respiratory Clinician Relationship Specialty Start Date End Date Presley Santillan MD [address] [place] [address] PCP - General Internal Medicine 02/10/17 documented as of this encounter
--- OUTSIDE RECORDS SUMMARY | 2024-05-03 07:21 | XMS_ITS | Encounter Summary ---
Author Organization [facility] Address [address] [place] [address] Care Team Providers Care Nursing Service Director Name Role Phone Unavailable Primary Care Provider Unavailabl e Encounter Details Date Type Department Care Team (Late st Contact Info) Description 11/15/2009 Results Only [facility] - [facility] [address] [place] [address] Brown Moy ARNP [address] [place] [address] Social History Tobacco Use Types Packs/Day Years Used Date Smoking Tobacco: Never Assessed Sex and Gender Information Value Date Recorded Sex Assigned at Not on file Gender Identity Not on file Sexual Orientation Not on file documented as of this encounter Plan of Treatment Not on file documented as of this encounter Procedures Procedure Name Priority Date/Time Associated Diagnosis Comments CYTOPATHOLOGY Routine 11/15/2009 0:00 EDT documented in this encounter Results * CYTOPATHOLOGY (11/15/2009 0:00 EDT) Pathology Report: CYTOPATHOLOGY REPORT ? Reports generated via electronic interface contain original data; ? however they are lacking the format of the original report. ? Caution should be taken when reading/interpreti ng unformatted reports. ? Name: ? YANETH DESOUZA ? Accession #: ? [id number] ? : ? 1990 (Age: 19) ??F ?Collect Date: ? 11/15/2009 ? Location: ? [facility] ? Receive Date: ? 11/19/2009 ? Provider: ?BROWN TORRES ? Copy to: ? Specimen/Source: ?Pap Test, Cervix/Endocervix, ThinPrep Imaging System ? with manual evaluation ? Last Menstrual Period: ? Hormonal/Contracep tive Status: ? Oral contraceptives: + ? Other: ? HPVA - HPV testing requested if ASC-US on the current ThinPrep Pap test. ? SPECIMEN ADEQUACY ? Satisfactory for Evaluation ? - transformation zone component present ? GENERAL CATEGORIZATION ? Negative for Intraepithelial Lesion or Malignancy ? Document reviewed and electronically signed by: ? Lorelei Sampson, CT(ASCP) ? Report Date: ??11/21/2009 10:36 ? End of Report ? LUKAS MILLER 11/15/2009 11/19/2009 Brown TORRES PATHOLOGY ORDERAB LES [facility] [address] [place] [address] documented in this encounter Visit Diagnoses Not on filedocumented in this encounter
--- OUTSIDE RECORDS SUMMARY | 2024-05-03 07:21 | XMS_ITS | Encounter Summary ---
Author Organization [facility] Address [address] [place] [address] Care Team Providers Care Raw Hide Trimmer Name Role Phone Mir Medina MD Primary Care Provider [phone] Encounter Details Date Type Department Care Team (Late st Contact Info) Description 01/15/2019 Results Only [facility] [phone] Wil Bhatt MD [address] [place] [address] Social History Tobacco Use Types Packs/Day Years Used Date Smoking Tobacco: Never Assessed Sex and Gender Information Value Date Recorded Sex Assigned at Not on file Gender Identity Not on file Sexual Orientation Not on file documented as of this encounter Plan of Treatment Not on file documented as of this encounter Procedures Procedure Name Priority Date/Time Associated Diagnosis Comments SURGICAL PATHOLOGY Routine 01/15/2019 17 :28 EDT documented in this encounter Results * SURGICAL PATHOLOGY (01/15/2019 17:28 EDT) Pathology Report: SURGICAL PATHOLOGY REPORT Reports generated via electronic interface contain original data; however they are lacking the format of the original report. Caution should be taken when reading/interpret ing unformatted reports. Name: ? YANETH DELUNA ? Accession #: ? [id number] ? : ? 1990 (Age: 28) ??F ? Collect Date: ? 01/15/2019 ? Location: ? [facility] ? Receive Date: ? 01/17/2019 ? Provider: WIL BHATT MD Copy to: ROSALINDA SALMON MANAGER GIFT ? Final Pathologic Diagnosis: APPENDIX, APPENDECTOMY: - ??Acute appendicitis. - ??Diverticulum with extra-appendicial mucin extravasation; negative for dysplasia. See comment. Comment: Deeper levels have been examined on 1. Document reviewed and electronically signed by: DOMENIC LEON MD Report ??Date: 01/21/2019 10:16 By the signature above, the attending physician certifies that he/she has personally conducted a gross and/or microscopic examination of the described specimens and rendered or confirmed the above diagnosis. Specimen(s) Received: Appendix Clinical History: Acute appendicitis Gross Description: ? Received in formalin labelled with proper patient identification (initials L, J) and appendix is a vermiform appendix (4.9 cm in length x 0.9 cm in diameter), with a moderate amount of attached mesoappendix. The proximal margin is stapled, and a portion of the mesoappendix is stapled, the staple line measuring 3.7 cm in length. ? The serosa is ku-white smooth. At the distal end of the mesoappendix, adjacent to the appendix tip, there is a cystic area filled with mucinous material. There is a small defect in the cystic area, oozing a small amount of mucinous material. This area is inked blue. The cut surface is unremarkable. The average wall thickness is 0.4 cm with no discernable perforation site. The lumen ranges from less than 0.1 cm to 0.2 cm in diameter and contains no fecalith. The proximal margin and mesoappendix margin are inked black. ? The section adjacent to the proximal stapled margin, two surgical device sales representative cross sections and one half of the longitudinally bisected distal tip are submitted in 1. The remainder of the specimen is submitted as 2-6. Dr. Winters 01/18/2019 2:56 PM End of Report [facility] 01/15/2019 17:2 8 EDT 01/17/2019 17:28 EDT Wil Bhatt MD PATHOLOGY ORDERABLES Performing Organization Address City/State/[facility] Co de Phone Number [facility] [address] [place] [address] documented in this encounter Visit Diagnoses Not on filedocumented in this encounter Care Teams Raw Hide Trimmer Relationship Specialty Start Date End Date Mir Medina MD PCP - General 09/07/15 01/18/19 documented as of this encounter
--- OUTSIDE RECORDS SUMMARY | 2024-05-03 07:21 | XMS_ITS | Encounter Summary ---
Author Organization [facility] Address [address] [place] [address] Care Team Providers Care Building Drafter Name Role Phone Jessica Mohamud KOTA Primary Care Provider [phone] Encounter Details Date Type Department Care Team (Late st Contact Info) Description 12/26/2023 Lab Requisition [facility] Pathology & Laboratory Medicine - [address] [phone] Outr Resulting Lab, Provider Social History Tobacco Use Types Packs/Day Years Used Date Smoking Tobacco: Never Assessed Interpersonal Safety Answer Date Record ed Physically Hurt Never 01/29/2020 Verbally Threaten Not on file 01/29/2020 Sex and Gender Information Value Date Recorded Sex Assigned at Not on file Gender Identity Not on file Sexual Orientation Not on file documented as of this encounter Plan of Treatment Not on file documented as of this encounter Procedures Procedure Name Priority Date/Time Associated Diagnosis Comments ESTRADIOL, ADULTS Routine 12/25/2023 12: 10 EDT [facility] Routine 12/25/2023 12:10 EDT documented in this encounter Results * FSH (12/25/2023 12:10 EDT) FSH 20.3 See Note mIU/mL 12/28/2023 8:52 EDT [facility] Blood VENOUS BLOOD / Unknown 12/25/2023 12:10 EDT 12/26/2023 21:11 EDT Narrative [facility] - 12/28/2023 8:52 EDT NOTE: Female FSH Reference Ranges (Menstruating): PHYSIOLOGICAL STATUS ? REFERENCE RANGE ? Follicular (-12 to -4 days): ?? 2.5 - 10.2 mIU/mL Midcycle (-3 to +2 days): ?3.4 - 33.4 mIU/mL Luteal (+4 to +12 days): ? 1.5 - 9.1 mIU/mL Postmenopausal: ?23.0 - 116.3 mIU/mL Reference Ranges for pediatric non-menstruating female patients have not been established. Provider Outr Resulting Lab CHEMISTRY & BLOOD GAS ORDERABLES Performing Organization Address [facility] de Phone Number [facility] [address] [place] [address] * ESTRADIOL, ADULTS (12/25/2023 12:10 EDT) [facility] Signature Estradiol 109 See Note pg/mL 12/26/2023 21:55 EDT [facility] Comment: NOTE: FEMALE REFERENCE RANGES: MENSTRUATING ? By cycle day relative to LH peak Follicular ?(-12 to -4 days) ??20-144 pg/mL Midcycle ?(-3 to +2 days) ?? 64-357 pg/mL Luteal ?(+4 to +12 days) ??56-214 pg/mL POSTMENOPAUSAL ?<32 pg/mL *Cross reactivity with Fulvestrant could lead to a falsely elevated estradiol result in patients treated with this drug. Blood VENOUS BLOOD / Unknown 12/25/2023 12:10 EDT 12/26/2023 21:11 EDT Provider Outr Resulting Lab CHEMISTRY & BLOOD GAS ORDERABLES Performing Organization Address [facility] de Phone Number [facility] [address] [place], [place] [address] documented in this encounter Visit Diagnoses Not on filedocumented in this encounter Care Teams Building Drafter Relationship Specialty Start Date End Date Jessica Mohamud APRN [address] [place] [address] PCP - General 01/19/19 documented as of this encounter
--- OUTSIDE RECORDS SUMMARY | 2024-05-03 07:21 | XMS_ITS | Encounter Summary ---
Author Organization [facility] Address [address] [place] [address] Care Team Providers Care Dance Master Name Role Phone Mir Medina MD Primary Care Provider [phone] Encounter Details Date Type Department Care Team (Late st Contact Info) Description 12/05/2015 Results Only [facility] [phone] Odin Casillas NP [address] [place] [address] Social History Tobacco Use Types Packs/Day Years Used Date Smoking Tobacco: Never Assessed Sex and Gender Information Value Date Recorded Sex Assigned at Not on file Gender Identity Not on file Sexual Orientation Not on file documented as of this encounter Plan of Treatment Not on file documented as of this encounter Procedures Procedure Name Priority Date/Time Associated Diagnosis Comments PAP TEST- RESULT ONLY Routine 12/05/2015 0:00 EDT documented in this encounter Results * PAP TEST- RESULT ONLY (12/05/2015 0:00 EDT) Pathology Report: CYTOPATHOLOGY REPORT Reports generated via electronic interface contain original data; however they are lacking the format of the original report. Caution should be taken when reading/interpreti ng unformatted reports. Name: ? YANETH DESOUZA ? Accession #: ? [id number] : ? 1990 (Age: 25) ??F ?Collect Date: ? 12/05/2015 Location: ? [facility] ? Receive Date: ? 12/07/2015 Provider: ?ODIN CASILLAS PATROL CONDUCTOR Copy to: ? Specimen/Source: ?Pap Test, Cervix/Endocervix, ThinPrep Imaging System with manual evaluation Last Menstrual Period: ? 11/20/15 Hormonal/Contracep tive Status: ? None Other: ? Previous NIL Pap(s) ? SPECIMEN ADEQUACY ? Satisfactory for Evaluation - transformation zone component present GENERAL CATEGORIZATION ? Negative for Intraepithelial Lesion or Malignancy ? Document reviewed and electronically signed by: ? DONATO Mujica(ASCP) ? Report Date: ??12/18/2015 13:24 End of Report [facility] 12/05/2015 12/07/2015 Odin Casillas NP PATHOLOGY ORDERABLES [facility] [address] [place] [address] documented in this encounter Visit Diagnoses Not on filedocumented in this encounter Care Teams Dance Master Relationship Specialty Start Date End Date Mir Medina MD PCP - General 09/07/15 01/18/19 documented as of this encounter
--- OUTSIDE RECORDS SUMMARY | 2024-05-03 07:21 | XMS_ITS | Encounter Summary ---
Author Organization [facility] Address [address] [place] [address] Care Team Providers Care Nuclear Security Officer Name Role Phone Jessica Mohamud KOTA Primary Care Provider [phone] Encounter Details Date Type Department Care Team (Late st Contact Info) Description 12/20/2020 Lab Requisition [facility] Pathology & Laboratory Medicine - [address] [address] Seema Gonzáles MD [facility] [place], [place] [id number] Encounter for other general examination Social History Tobacco Use Types Packs/Day Years [...] Priority Date/Time Associated Diagnosis Comments SURGICAL PATHOLOGY Today 12/20/2020 9: 32 EDT Encounter for other general examination documented in this encounter Results * SURGICAL PATHOLOGY (12/20/2020 9:32 EDT) Final Diagnosis A. UTERUS, CERVIX, AND FALLOPIAN TUBES, HYSTERECTOMY AND BILATERAL SALPINGECTOMY: - Endometrium: - Inactive to weakly secretory. 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 - Cervix: - No specific pathologic features. - Serosa: - No specific pathologic features. - Fallopian tubes: - No specific pathologic features. 12/25/2020 18:37 [facility] Attestation There was significant resident/fellow involvement in the diagnostic evaluation of this case. By the signature below, the attending physician certifies that they have personally conducted a gross and/or microscopic examination of the described specimens and rendered or confirmed the above diagnosis. 12/25/2020 18:37 [facility] at 1837 Clinical History Abnormal uterine bleeding 12/25/2020 18:37 [facility] Gross Description A. Received in formalin labelled with proper patient identification (initials L, J) and uterus and bilateral fallopian tubes is an intact uterus and cervix (45 g, 6.8 cm cervix to fundus by 3.2 cm cornu to cornu by 2.3 cm anterior to posterior). Also within the container are detached fimbriated fallopian tubes (4.2 cm and 4.4 cm in length by 0.4 cm in diameter). The uterine serosa is rodriguez-purple, dull and hyperemic. The ectocervix is rodriguez and ragged with a patent slit-like os. The endocervix has an unremarkable herringbone pattern. The endometrium has an average thickness of 0.1 cm. The myometrium is trabeculated with an average thickness of 1.2 cm. No myometrial nodules or lesions are identified. The fallopian tubes have dark purple hyperemic serosa with cut surfaces showing an unremarkable pinpoint lumen. Learning Engineer sections are submitted as follows: BLOCK TELLEZ A1- fimbria, longitudinally bisected and one cross section A2- opposite fimbria, longitudinally bisected and one cross section A3- anterior cervix A4- anterior endomyometrium A5- posterior cervix A6-A7- posterior endomyometrium ZAHRA KEARNS(ASCP) 12/21/2020 9:59 12/25/2020 18:37 [facility] Resident/Heber w: Ankur Sin MD 12/25/2020 18:37 [facility] Performing Lab [facility] 12/25/2020 18:37 [facility] Scanned Images 12/25/2020 18:37 [facility] Tissue SPECIMEN FROM UTERUS / Unknown 12/20/2020 9:32 EDT 12/20/2020 16:19 EDT Seema Gonzáles MD PATHOLOGY ORDERABLES [facility] [address] [place] [address] documented in this encounter Visit Diagnoses Diagnosis Encounter for other general examination documented in this encounter Care Teams Nuclear Security Officer Relationship Specialty Start Date End Date Jessica Mohamud APRN [address] [place] [address] PCP - General 01/19/19 documented as of this encounter
--- OUTSIDE RECORDS SUMMARY | 2024-05-03 07:21 | XMS_ITS | Referral Summary ---
Author Organization [facility] Address [address] [place] [address] Care Team Providers Care Industrial Roofer Helper Name Role Phone Jessica Mohamud KOTA Primary Care Provider [phone] Immunizations Name Administration Dates Next Due Influenza Vaccine =>1yo Split IM 05/19/2013 Social History Tobacco Use Types Packs/Day Years Used Date Smoking Tobacco: Never Assessed Interpersonal Safety Answer Date Record ed Physically Hurt Never 01/29/2020 Verbally Threaten Not on file 01/29/2020 Sex and Gender Information Value Date Recorded Sex Assigned at Not on file Gender Identity Not on file Sexual Orientation Not on file Plan of Treatment Not on file Care Teams Industrial Roofer Helper Relationship Specialty Start Date End Date Jessica Mohamud APRN [address] [place] [address] PCP - General 01/19/19
--- OUTSIDE RECORDS SUMMARY | 2024-05-03 07:21 | XMS_ITS | Encounter Summary ---
Author Organization [facility] Address [address] [place] [address] Care Team Providers Care Ore Roaster Name Role Phone Jessica Mohamud KOTA Primary Care Provider [phone] Encounter Details Date Type Department Care Team (Late st Contact Info) Description 08/29/2021 Lab Requisition [facility] Pathology & Laboratory Medicine - [address] [id number] Outr Resulting Lab, Provider Social History Tobacco [...] Procedure Name Priority Date/Time Associated Diagnosis Comments ZZCOVID-19 TEST [facility] PCR Today 08/28/2021 17:15 EST COVID-19 TESTING Routine 08/28/2021 17:1 5 EST documented in this encounter Results * COVID-19 TEST [facility] PCR (08/28/2021 17:15 EST) Swab 08/28/2021 17:1 5 EST 08/29/2021 19:26 EST Provider Outr Resulting Lab MICROBIOLOGY - GENERAL ORDERABLES [facility] [address] [place] [address] * COVID-19 TESTING (08/28/2021 17:15 EST) COVID-19 rt-PCR Result Negative Negative 08/30/2021 12:19 EST [facility] Comment: This test has not been FDA cleared or approved. This test has been authorized by FDA under an EUA for use by authorized laboratories. This test has been authorized only for detection of nucleic acid from 2019-nCoV, not for any other viruses or pathogens. This test is only authorized for the duration of the declaration that circumstances exist justifying the authorization of emergency use of in vitro diagnostic tests for detection and/or diagnosis of 2019-nCoV under section 564(b)(1) of Act, 21 U.S.C ?? 360bbb-3(b) (1), unless the authorization is terminated or revoked sooner. Negative results do not preclude 2019-nCoV infection and should not be used as the sole basis for treatment or other patient management decisions. Negative results must be combined with clinical observations, patient history, and epidemiological information. Testing was performed using the ruddy SARS-CoV-2 assay ([employer] on the Ruddy 6800 System Performing Lab Ruddy [address] [facility] 08/30/2021 12:19 EST [facility] Swab 08/28/2021 17:1 5 EST 08/29/2021 19:26 EST Provider Outr Resulting Lab MICROBIOLOGY - GENERAL ORDERABLES [facility] [address] [place] [address] documented in this encounter Visit Diagnoses Not on filedocumented in this encounter Care Teams Ore Roaster Relationship Specialty Start Date End Date Jessica Mohamud APRN [address] [place] [address] PCP - General 01/19/19 documented as of this encounter
--- OUTSIDE RECORDS SUMMARY | 2024-05-03 07:21 | XMS_ITS | Encounter Summary ---
Author Organization [facility] Address [address] [place] [address] Care Team Providers Care Emergency Medicine Name Role Phone Mir Medina MD Primary Care Provider [phone] Encounter Details Date Type Department Care Team (Late st Contact Info) Description 08/28/2017 Orders Only [facility] Adult Primary Care - [place] [address] [place] [address] Roberta Patricio MD [address] [place] [address] Social History Tobacco Use Types Packs/Day Years Used Date Smoking Tobacco: Never Assessed Sex and Gender Information Value Date Recorded Sex Assigned at Not on file Gender Identity Not on file Sexual Orientation Not on file documented as of this encounter Plan of Treatment Not on file documented as of this encounter Procedures Procedure Name Priority Date/Time Associated Diagnosis Comments THYROID CASCADE Routine 08/28/2017 7:50 EST LIPID PROFILE (INCLUDES CHOLESTEROL, TRIGLYCERIDES, HDL, LDL) Routine 08/28/2017 7:50 EST documented in this encounter Results * THYROID CASCADE (08/28/2017 7:50 EST) TSH, External 2.47 0.47 - 4.68 mlU/L [facility] Comment:Please see the scann ed report in PRISM for further interpretation. Blood specimen (specimen) 08/28/2017 7:50 EST Roberta Patricio MD CHEMISTRY & BLOOD GA S ORDERABLES [facility] * (ABNORMAL) LIPID PROFILE (INCLUDES CHOLESTEROL, TRIGLYCERIDES, HDL, LDL) (08/28/2017 7:50 EST) Cholesterol, External 182 59 - 199 mg/dL [facility] Triglycerides, External 94 0 - 149 mg/dL [facility] HDL, External 38(A) 40 - 60 mg/dL [facility] LDL, External 125.2 0 - 129 mg/dL [facility] Chol/HDL Ratio, External 4.78(A) 0 - 3.9 [facility] Fasting?, External Yes [facility] Comment:Please see the scann ed report in PRISM for further interpretation. Blood specimen (specimen) 08/28/2017 7:50 EST Roberta Patricio MD CHEMISTRY & BLOOD GA S ORDERABLES [facility] documented in this encounter Visit Diagnoses Not on filedocumented in this encounter Care Teams Emergency Medicine Relationship Specialty Start Date End Date Mir Medina MD PCP - General 09/07/15 01/18/19 documented as of this encounter
--- OUTSIDE RECORDS SUMMARY | 2024-05-03 07:21 | XMS_ITS | Encounter Summary ---
Author Organization [facility] Address [address] [place] [address] Care Team Providers Care Yarn Bleaching Machine Operator Name Role Phone Jessica Mohamud DIRECTOR OF CODING Primary Care Provider [phone] Encounter Details Date Type Department Care Team (Latest Contact Info) Description 06/07/2019 Lab Requisition [facility] Pathology & Laboratory Medicine - [facility] [address] [place] [address] Jessica Mohamud, KOTA [address] [facility] [address] [place] [address] Encounter for general adult medical examination without abnormal findings; Encounter for screening for malignant neoplasm of cervix; Encounter for gynecological examination (general) (routine) without abnormal findings Social History Tobacco Use Types Packs/Day Years Used Date Smoking Tobacco: Never Assessed Sex and Gender Information Value Date Recorded Sex Assigned at Not on file Gender Identity Not on file Sexual Orientation Not on file documented as of this encounter Plan of Treatment Not on file documented as of this encounter Procedures Procedure Name Priority Date/Time Associated Diagnosis Comments PAP TEST Today 06/06/2019 17:30 EST Encounter for general adult medical examination without abnormal findings Encounter for screening for malignant neoplasm of cervix Encounter for gynecological examination (general) (routine) without abnormal findings CHLAMYDIA/N. GONORRHOEAE AMPLIFIED NUCLEIC ACID, THINPREP Today 06/06/2019 17:30 EST HPV DNA DETECTION WITH GENOTYPING, PCR Today 06/06/2019 17:30 EST Encounter for general adult medical examination without abnormal findings Encounter for screening for malignant neoplasm of cervix Encounter for gynecological examination (general) (routine) without abnormal findings documented in this encounter Results * HUMAN PAPILLOMAVIRUS (HPV) DETECTION-HIGH RISK TYPES (06/06/2019 17:30 EST) HPV other High Risk types, PCR Negative Negative 06/13/2019 14:48 [facility] Comment:No E6 or E7 mRNA is detected from HPV types 16,18,31,33,35,39,45,51,52,56,58,59,66, and 68 by fire protection inspector mediated amplification. Papanicolaou smear specimen (specimen) CERVIX UTERI STRUCTURE / Unknown 06/06/2019 17:30 EST 06/10/2019 15:31 EST Jessica Mohamud APRN MICROBIOLOGY - GE NERAL ORDERABLES [facility] [address] [place] [address] * PAP TEST (06/06/2019 17:30 EST) Specimens A. Cervix and/or Endocervix, , ThinPrep Imaging System with Manual Evaluation 06/13/2019 14:48 [facility] Specimen Adequacy Satisfactory for Evaluation - transformation zone component present 06/13/2019 14:48 [facility] General Categorization Negative for intraepithelial lesion or malignancy 06/13/2019 14:48 [facility] Attestation . 06/13/2019 14:48 [facility] at 1448 Clinical History NONE 06/13/20 19 14:48 [facility] HPV The result for the Human Papillomavirus (HPV) Detection-High Risk Types is Negative. No E6 or E7 mRNA is detected from HPV types 16,18,31,33,35,39 ,45,51,52,56,58,5 9,66, and 68 by fire protection inspector mediated amplification.Jenifer ting was performed on specimen [id number] and was resulted on 06/13/2019 1444 EST by SHALA, LAB INSTRUMENT RESULTS IN 06/13/2019 14:48 [facility] Scanned Images 06/13/2019 14:48 EST [facility] Papanicolaou smear specimen (specimen) CERVIX UTERI STRUCTURE / Unknown 06/06/2019 17:30 EST 06/08/2019 11:41 EST Jessica Mohamud DIRECTOR OF CODING PATHOLOGY ORDERAB LES Performing Organization Address [facility] Co de Phone Number [facility] [address] [place] [address] * CHLAMYDIA/N. GONORRHOEAE AMPLIFIED RNA, THINPREP (06/06/2019 17:30 EST) Neisseria gonorrhoeae Result Negative Negative 06/08/2019 15:02 EST [facility] Chlamydia trachomatis Result Negative Negative 06/08/2019 15:02 EST [facility] Papanicolaou smear specimen (specimen) CERVIX UTERI STRUCTURE / Unknown 06/06/2019 17:30 EST 06/08/2019 8:28 EST Jessica Mohamud DIRECTOR OF CODING MICROBIOLOGY - GE NERAL ORDERABLES Performing Organization Address City/[facility] Co de Phone Number [facility] [address] [place] [address] documented in this encounter Visit Diagnoses Diagnosis Encounter for general adult medical examination without abnormal findings Unspecified general medical examination Encounter for screening for malignant neoplasm of cervix Screening for malignant neoplasm of the cervix Encounter for gynecological examination (general) (routine) without abnormal findings documented in this encounter Care Teams Yarn Bleaching Machine Operator Relationship Specialty Start Date End Date Jessica Mohamud APRN [address] [place] [address] PCP - General 01/19/19 documented as of this encounter
--- OUTSIDE RECORDS SUMMARY | 2024-05-03 07:21 | XMS_ITS | Clinical Summary ---
Author Organization [facility] Address [address] [place] [address] Care Team Providers Care Motorcycle Police Officer Name Role Phone Jessica Mohamud KOTA Primary Care Provider [phone] Immunizations Name Administration Dates Next Due Influenza [...] Orientation Not on file Plan of Treatment Health Maintenance Due Date Last Done Comments Hepatitis C Screen 1990 Hepatitis B Vaccine (1 of 3 - 19+ 3-dose series) 11/10 COVID-19 Vaccine (2022- season) 2023 Care Teams Motorcycle Police Officer Relationship Specialty Start Date End Date Jessica Mohamud APRN [address] [place] [address] PCP - General 01/19/19
--- OUTSIDE RECORDS SUMMARY | 2024-05-03 07:21 | XMS_ITS | Encounter Summary ---
Author Organization [facility] Address [address] [place] [address] Care Team Providers Care Supervisor Electronics Processing Name Role Phone Unavailable Primary Care Provider Unavailabl e Encounter Details Date Type Department Care Team (Late st Contact Info) Description 12/09/2011 Results Only [facility] ([facility] [address] [place] [address] Halina García, LIZBETH [address] [place] [address] Social History Tobacco Use Types Packs/Day Years [...] Diagnosis Comments PAP TEST- RESULT ONLY Routine 12/09/2011 0:00 EDT documented in this encounter Results * PAP TEST- RESULT ONLY (12/09/2011 0:00 EDT) Pathology Report: CYTOPATHOLOGY REPORT Reports generated via electronic interface contain original data; however they are lacking the format of the original report. Caution should be taken when reading/interpreti ng unformatted reports. Name: ? YANETH DESOUZA ? Accession #: ? [id number] : ? 1990 (Age: 21) ??F ?Collect Date: ? 12/09/2011 Location: ? [facility] ? Receive Date: ? 12/10/2011 Provider: ?HALINA GARCÍA TECHNICAL SERVICES REP Copy to: ? Specimen/Source: ?Pap Test, Cervix/Endocervix, ThinPrep Imaging System with manual evaluation Last Menstrual Period: ? 10/08/11 Hormonal/Contracep tive Status: ? Yes: Implanon-Implant ? SPECIMEN ADEQUACY ? Satisfactory for Evaluation - transformation zone component present GENERAL CATEGORIZATION ? Negative for Intraepithelial Lesion or Malignancy ? Document reviewed and electronically signed by: ? Elijah Johnson, CT(ASCP) ? Report Date: ??12/11/2011 13:05 End of Report [facility] 12/09/2011 12/10/2011 Halina García TECHNICAL SERVICES REP PATHOLOGY [facility] [address] [place] [address] documented in this encounter Visit Diagnoses Not on filedocumented in this encounter
--- OUTSIDE RECORDS SUMMARY | 2024-05-03 07:21 | XMS_ITS | Encounter Summary ---
Author Organization [facility] [place] [address] Care Team Providers Care Information Analyst Name Role Phone Presley Santillan MD Primary Care Provider [phone] Encounter Details Date Type Department Care Team (Late st Contact Info) Description 02/10/2017 Telephone Hematology [place] [phone] Presley Choudhary MD [facility] [address] HEMATOLOGY/[place] [address] Social History Tobacco Use Types Packs/Day Years Used Date Smoking Tobacco: Never Assessed Sex and Gender Information Value Date Recorded Sex Assigned at Not on file Gender Identity Not on file Sexual Orientation Not on file documented as of this encounter Miscellaneous Notes * Telephone Encounter - Presley Choudhary MD - 02/10/2017 5:26 PM EDT Next available appointment Thursday here. For expedited workup and treatment, discussed with patient that we would prefer to admit her now. She agreed to come in hospital for special surgery for a direct admission to hematology. Plan: Lab work overnight: CBC, CMP, viral hepatitis panel, coags (PT, PTT, d-dimer, fibrinogen), peripheral smear, B12, folate, MARK, HIV. Will not transfuse unless bleeding. Treatment plan for IVIG +/- steroids tomorrow. documented in this encounter Plan of Treatment Not on file documented as of this encounter Visit Diagnoses Not on filedocumented in this encounter Care Teams Information Analyst Relationship Specialty Start Date End Date Presley Santillan MD [address] [place] [address] PCP - General Internal Medicine 02/10/17 documented as of this encounter
--- OUTSIDE RECORDS SUMMARY | 2024-05-03 07:21 | XMS_ITS | Encounter Summary ---
Author Organization [facility] Address [address] [place] [address] Care Team Providers Care Recreational Vehicle Resort Manager Name Role Phone Mir Medina MD Primary Care Provider [phone] Encounter Details Date Type Department Care Team (Latest Contact Info) Description 01/15/2019 11:51 EDT - 01/15/2019 23:59 EDT Hospital Encounter [address] [address] Unknown, Provider, MD Discharge Disposition: Home or Self Care Social History Tobacco Use Types Packs/Day Years Used Date Smoking Tobacco: Never Assessed Sex and Gender Information Value Date Recorded Sex Assigned at Not on file Gender Identity Not on file Sexual Orientation Not on file documented as of this encounter Discharge Disposition Disposition Code Departure Means Destination Home or Self Custodial documented in this encounter Plan of Treatment Not on file documented as of this encounter Visit Diagnoses Not on filedocumented in this encounter Care Teams Recreational Vehicle Resort Manager Relationship Specialty Start Date End Date Mir Medina MD PCP - General 09/07/15 01/18/19 documented as of this encounter
--- OUTSIDE RECORDS SUMMARY | 2024-05-03 07:21 | XMS_ITS | Encounter Summary ---
Author Organization [facility] Address [address] [place] [address] Care Team Providers Care Braille Proofreader Name Role Phone Jessica Mohamud KOTA Primary Care Provider [phone] [phone] Encounter Details Date Type Department Care Team (Late st Contact Info) Description 07/19/2020 Lab Requisition [facility] Pathology & Laboratory Medicine - [address] [id number] Outr Resulting Lab, Provider Social History Tobacco [...] Procedure Name Priority Date/Time Associated Diagnosis Comments DO NOT ORDER STANDALONE - [facility] COVID TEST Today 07/19/2020 11:06 EST COVID-19 TESTING Routine 07/19/2020 11:0 6 EST documented in this encounter Results * DO NOT ORDER STANDALONE - [facility] COVID TEST (07/19/2020 11:06 EST) COVID-19 rt-PCR Result NEGATIVE Negative 07/20/2020 19:27 EST [facility] Comment: 2019-novel Coronavirus (2019-nCoV) not detected by the qRT-PCR assay. Consider testing for other respiratory viruses or re-collecting for 2019-nCoV testing. Note: Optimum timing for peak viral levels during infections caused by 2019-nCoV have not been determined. Collection of multiple specimens from the same patient may be necessary to detect the virus. Limitations Positive results are indicative of active infection with SARS-CoV-2 but do not rule out bacterial infection or co-infection with other viruses. The agent detected may not be the definite cause of disease. In addition, detection of viral RNA may not indicate the presence of infectious virus or that SARS-CoV-2 is the causative agent for clinical symptoms. Negative results do not preclude SARS-CoV-2 infection and should not be used as the sole basis for patient management decisions. Negative results must be combined with clinical observations, patient history, and epidemiological information. False negative results may also occur if amplification inhibitors are present in the specimen or if inadequate numbers of organisms are present in the specimen. Optimum specimen types and timing for peak viral levels during infections caused by SARS-CoV-2 have not been fully determined. Collection of multiple specimens (types and time points) from the same patient may be necessary to detect the virus. The test was validated for use with upper respiratory specimens obtained via nasopharyngeal or oropharyngeal swabs in VTM, UTM, M4, M5, M6, saline, and MTM media. The performance of this test has not been established for other specimens. Specimens collected using other FDA recommended Specimen Collection Materials listed in the FDA COVID-19 [employer] communication (September 22, 2019) are processed with the caveat that they were not all validated for use with this test and the result must be interpreted in this context. Furthermore, a false negative results may occur if a specimen is improperly collected, transported or handled. If the virus mutates in the RT-PCR target region, SARS-CoV-2 may not be detected or may be detected less predictably. Inhibitors or other types of interference may produce a false negative result. An interference study evaluating the effect of common cold medications was not performed. This test is not FDA-cleared but its performance characteristics were established by our CLIA-certified, CAP-accredited, high complexity laboratory in accordance with CLIA regulations, [employer] [place] [employer] (CAP) guidelines (Sep 15, 2019), and FDA guidance (Aug 27, 2019). This test is only for use under the Food and Drug Administration's Emergency Use Authorization. Swab ENTIRE NASOPHARYNX / Unknown 07/19/2020 11:06 EST 07/19/2020 15:58 EST Provider Outr Resulting Lab MICROBIOLOGY - GENERAL ORDERABLES [facility] [place], [place] * COVID-19 TESTING (07/19/2020 11:06 EST) COVID-19 rt-PCR Result NEGATIVE Negative 07/20/2020 22:11 EST [facility] Comment: 2019-novel Coronavirus (2019-nCoV) not detected by the qRT-PCR assay. Consider testing for other respiratory viruses or re-collecting for 2019-nCoV testing. Note: Optimum timing for peak viral levels during infections caused by 2019-nCoV have not been determined. Collection of multiple specimens from the same patient may be necessary to detect the virus. Limitations Positive results are indicative of active infection with SARS-CoV-2 but do not rule out bacterial infection or co-infection with other viruses. The agent detected may not be the definite cause of disease. In addition, detection of viral RNA may not indicate the presence of infectious virus or that SARS-CoV-2 is the causative agent for clinical symptoms. Negative results do not preclude SARS-CoV-2 infection and should not be used as the sole basis for patient management decisions. Negative results must be combined with clinical observations, patient history, and epidemiological information. False negative results may also occur if amplification inhibitors are present in the specimen or if inadequate numbers of organisms are present in the specimen. Optimum specimen types and timing for peak viral levels during infections caused by SARS-CoV-2 have not been fully determined. Collection of multiple specimens (types and time points) from the same patient may be necessary to detect the virus. The test was validated for use with upper respiratory specimens obtained via nasopharyngeal or oropharyngeal swabs in VTM, UTM, M4, M5, M6, saline, and MTM media. The performance of this test has not been established for other specimens. Specimens collected using other FDA recommended Specimen Collection Materials listed in the FDA COVID-19 [employer] communication (September 22, 2019) are processed with the caveat that they were not all validated for use with this test and the result must be interpreted in this context. Furthermore, a false negative results may occur if a specimen is improperly collected, transported or handled. If the virus mutates in the RT-PCR target region, SARS-CoV-2 may not be detected or may be detected less predictably. Inhibitors or other types of interference may produce a false negative result. An interference study evaluating the effect of common cold medications was not performed. This test is not FDA-cleared but its performance characteristics were established by our CLIA-certified, CAP-accredited, high complexity laboratory in accordance with CLIA regulations, [employer] of [place] [employer] (CAP) guidelines (Sep 15, 2019), and FDA guidance (Aug 27, 2019). This test is only for use under the Food and Drug Administration's Emergency Use Authorization. Performing Lab [facility] 07/20/2020 22:11 EST [facility] Swab 07/19/2020 11:0 6 EST 07/19/2020 15:58 EST Provider Outr Resulting Lab MICROBIOLOGY - GENERAL ORDERABLES [facility] [address] [place] [address] [facility] [place], [place] documented in this encounter Visit Diagnoses Not on filedocumented in this encounter Care Teams Braille Proofreader Relationship Specialty Start Date End Date Jessica Mohamud APRN [address] [place] [address] PCP - General 01/19/19 documented as of this encounter
--- OUTSIDE RECORDS SUMMARY | 2024-05-03 07:21 | XMS_ITS | Encounter Summary ---
Author Organization [facility] Address [address] [place] [address] Care Team Providers Care Block Chopper Hand Name Role Phone Jessica Mohamud KOTA Primary Care Provider [phone] [phone] Encounter Details Date Type Department Care Team (Late st Contact Info) Description 12/13/2019 Lab Requisition [facility] Pathology & Laboratory Medicine - [address] [id number] Outr Resulting Lab, Provider Social History Tobacco [...] Procedure Name Priority Date/Time Associated Diagnosis Comments FECAL BACTERIAL PATHOGENS BY PCR Routine 12/12/2019 20:15 EDT documented in this encounter Results * FECAL BACTERIAL PATHOGENS BY PCR (12/12/2019 20:15 EDT) Salmonella PCR Negative Negative 12/14/2019 13:28 EDT [facility] Shigella/Enteroin vasive E. coli Negative Negative 12/14/2019 13:28 EDT [facility] HN LAB CAMPYLOBACTER PCR Negative Negative 12/14/2019 13:28 EDT [facility] Shiga Toxin PCR Negative Negative 0 13:28 EDT [facility] Feces SPECIMEN FROM RECTUM / Unknown 12/12/2019 20:15 EDT 12/13/2019 17:13 EDT Provider Outr Resulting Lab MICROBIOLOGY - GENERAL ORDERABLES [facility] [address] [place] [address] documented in this encounter Visit Diagnoses Not on filedocumented in this encounter Care Teams Block Chopper Hand Relationship Specialty Start Date End Date Jessica Mohamud APRN [address] [place], [place] [address] PCP - General 01/19/19 documented as of this encounter
--- OUTSIDE RECORDS SUMMARY | 2024-05-03 07:21 | XMS_ITS | Encounter Summary ---
Author Organization [facility] Address [address] [place] [address] Care Team Providers Care Global Account Manager Name Role Phone Jessica Mohamud KOTA Primary Care Provider [phone] [phone] Encounter Details Date Type Department Care Team (Late st Contact Info) Description 12/12/2019 Lab Requisition [facility] Pathology & Laboratory Medicine - [facility] [address] [place], [place] [address] Outr Resulting Lab, Provider Social History Tobacco [...] Comments ZZCOVID-19 TEST [facility] PCR Today 12/12/2019 10:55 EDT COVID-19 TESTING Routine 12/12/2019 10:5 5 EDT documented in this encounter Results * COVID-19 TEST [facility] PCR (12/12/2019 10:55 EDT) Swab ENTIRE NASOPHARYNX / Unknown 12/12/2019 10:55 EDT 12/12/2019 17:26 EDT Provider Outr Resulting Lab MICROBIOLOGY - GENERAL ORDERABLES [facility] [address] [place] [address] * COVID-19 TESTING (12/12/2019 10:55 EDT) COVID-19 rt-PCR Result Negative Negative 12/13/2019 1:02 EDT [facility] Comment: This test has [...] clinical observations, patient history, and epidemiological information. Performed on the [employer] Fusion instrument Performing Lab [facility] 12/13/2019 1:02 EDT [facility] Swab ENTIRE NASOPHARYNX / Unknown 12/12/2019 10:55 EDT 12/12/2019 17:26 EDT Provider Outr Resulting Lab MICROBIOLOGY - GENERAL ORDERABLES [facility] [address] [place] [address] documented in this encounter Visit Diagnoses Not on filedocumented in this encounter Care Teams Global Account Manager Relationship Specialty Start Date End Date Jessica Mohamud APRN [address] [place] [address] PCP - General 01/19/19 documented as of this encounter
--- OUTSIDE RECORDS SUMMARY | 2024-05-03 07:21 | XMS_ITS | Encounter Summary ---
Author Organization [facility] Address [address] [place] [address] Care Team Providers Care Secondary Set Up Man Name Role Phone Halina Segura ROLL BUILDER Primary Care Provider + Encounter Details Date Type Department Care Team (Latest Contact Info) Description 09/04/2015 9:39 EST - 09/04/2015 23:59 EST Hospital Encounter [address] [address] Unknown, Provider, MD Discharge Disposition: Home or Self Care Social History Tobacco Use Types Packs/Day Years Used Date Smoking Tobacco: Never Assessed Sex and Gender Information Value Date Recorded Sex Assigned at Not on file Gender Identity Not on file Sexual Orientation Not on file documented as of this encounter Discharge Disposition Disposition Code Departure Means Destination Home or Self Group Home documented in this encounter Plan of Treatment Not on file documented as of this encounter Visit Diagnoses Not on filedocumented in this encounter Care Teams Secondary Set Up Man Relationship Specialty Start Date End Date Halina Segura NP [address] [place] [phone] PCP - General 12/11/11 09/06/15 documented as of this encounter
--- OUTSIDE RECORDS SUMMARY | 2024-05-03 07:21 | XMS_ITS | Encounter Summary ---
Author Organization [facility] Address [address] [place] [address] Care Team Providers Care Multimedia Engineer Name Role Phone Jessica Mohamud KOTA Primary Care Provider [phone] [phone] Encounter Details Date Type Department Care Team (Late st Contact Info) Description 07/24/[address] Lab Re[address] [facility] Pathology & Laboratory Medicine - [address] [address] Outr Resulting Lab, Provider Social History Tobacco [...] Comments ZZCOVID-19 TEST [facility] PCR Today 07/23/2020 16:00 EST COVID-19 TESTING Routine 07/23/2020 16:0 0 EST documented in this encounter Results * COVID-19 TEST [facility] PCR (07/23/2020 16:00 EST) Swab ENTIRE NASOPHARYNX / Unknown 07/23/2020 16:00 EST 07/24/2020 15:40 EST Provider Outr Resulting Lab MICROBIOLOGY - GENERAL ORDERABLES [facility] [address] [place] [address] * COVID-19 TESTING (07/23/2020 16:00 EST) COVID-19 rt-PCR Result Negative Negative 07/25/2020 12:25 EST [facility] Comment: This test [...] was performed using the ruddy SARS-CoV-2 assay ([employer] on the Ruddy 6800 System Performing Lab [address] [facility] 07/25/2020 12:25 EST [facility] Swab 07/23/2020 16:0 0 EST 07/24/2020 15:40 EST Provider Outr Resulting Lab MICROBIOLOGY - GENERAL ORDERABLES [facility] [address] [place] [address] documented in this encounter Visit Diagnoses Not on filedocumented in this encounter Care Teams Multimedia Engineer Relationship Specialty Start Date End Date Jessica Mohamud APRN [address] [place], [place] [address] PCP - General 01/19/19 documented as of this encounter
--- OUTSIDE RECORDS SUMMARY | 2024-05-03 07:21 | XMS_ITS | Encounter Summary ---
Author Organization [facility] Address [address] [place] [address] Care Team Providers Care Dispatch Machine Runner Name Role Phone Jessica Mohamud KOTA Primary Care Provider [phone] Encounter Details Date Type Department Care Team (Late st Contact Info) Description 11/06/2020 Lab Requisition [facility] Pathology & Laboratory Medicine - [address] [id number] Outr Resulting Lab, Provider Social History Tobacco [...] Comments ZZCOVID-19 TEST [facility] PCR Today 11/06/2020 9:40 EDT COVID-19 TESTING Routine 11/06/2020 9:40 EDT documented in this encounter Results * COVID-19 TEST [facility] PCR (11/06/2020 9:40 EDT) Swab ENTIRE NASOPHARYNX / Unknown 11/06/2020 9:40 EDT 11/06/2020 21:04 EDT Provider Outr Resulting Lab MICROBIOLOGY - GENERAL ORDERABLES [facility] [address] [place] [address] * COVID-19 TESTING (11/06/2020 9:40 EDT) COVID-19 rt-PCR Result Negative Negative 11/07/2020 11:23 EDT [facility] Comment: This test has [...] was performed using the ruddy SARS-CoV-2 assay ([employer] on the Ruddy 6800 System Performing Lab [address] [facility] 11/07/2020 11:23 EDT [facility] Swab 11/06/2020 9:40 EDT 11/06/2020 21:04 EDT Provider Outr Resulting Lab MICROBIOLOGY - GENERAL ORDERABLES [facility] [address] [place] [address] documented in this encounter Visit Diagnoses Not on filedocumented in this encounter Care Teams Dispatch Machine Runner Relationship Specialty Start Date End Date Jessica Mohamud APRN [address] [place] [address] PCP - General 01/19/19 documented as of this encounter
--- OUTSIDE RECORDS SUMMARY | 2024-05-03 07:21 | XMS_ITS | Encounter Summary ---
Author Organization [facility] Address [address] [place] [address] Care Team Providers Care Battery Service Technician Name Role Phone Unavailable Primary Care Provider Unavailabl e Encounter Details Date Type Department Care Team (Late st Contact Info) Description 12/03/2007 Results Only [facility] [address] [place] [address] Sally Garcia ARNP [address] [place] [address] Social History Tobacco Use Types Packs/Day Years Used Date Smoking Tobacco: Never Assessed Sex and Gender Information Value Date Recorded Sex Assigned at Not on file Gender Identity Not on file Sexual Orientation Not on file documented as of this encounter Plan of Treatment Not on file documented as of this encounter Procedures Procedure Name Priority Date/Time Associated Diagnosis Comments CYTOPATHOLOGY Routine 12/03/2007 0:00 EDT documented in this encounter Results * CYTOPATHOLOGY (12/03/2007 0:00 EDT) Pathology Report: CYTOPATHOLOGY REPORT Reports generated via electronic interface contain original data; however they are lacking the format of the original report. Caution should be taken when reading/interpreti ng unformatted reports. Name: ? YANETH DESOUZA ? Accession #: ? [id number] : ? 1990 (Age: 17) ??F ?Collect Date: ? 12/03/2007 Location: ? [facility] ? Receive Date: ? 12/08/2007 Provider: ?SALLY TORRES Copy to: ? Specimen/Source: ?ThinPrep Pap Test, Cervix/Endocervix, processed on [employer] ThinPrep Imaging System, with manual evaluation Last Menstrual Period: ? 11/12/07 Hormonal/Contracep tive Status: ? Oral contraceptives ? SPECIMEN ADEQUACY ? Satisfactory for Evaluation - transformation zone component present GENERAL CATEGORIZATION ? Negative for Intraepithelial Lesion or Malignancy ? Document reviewed and electronically signed by: ? Karen Yen, SCT(ASCP) ? Report Date: ??12/09/2007 12:07 End of Report [facility]UK[facility] MILLER 12/03/2007 12/08/2007 Sally TORRES PATHOLOGY ORDERAB LES LUKAS MILLER [address] [place] [address] documented in this encounter Visit Diagnoses Not on filedocumented in this encounter
--- OUTSIDE RECORDS SUMMARY | 2024-05-03 07:21 | XMS_ITS | Encounter Summary ---
Author Organization [facility] Address [address] [place] [address] Care Team Providers Care Associate Counsel Name Role Phone Jessica Mohamud PIPE CLEANER Primary Care Provider [phone] [phone] Encounter Details Date Type Department Care Team (Late st Contact Info) Description 05/02/2022 Lab Requisition [facility] Pathology & Laboratory Medicine - [facility] [address] [place] [address] Jessica Mohamud APRN [address] [facility] [address] [place] [phone] Encounter for other general examination Social History [...] Date/Time Associated Diagnosis Comments SURGICAL PATHOLOGY Today 05/01/2022 8: 15 EDT Encounter for other general examination documented in this encounter Results * SURGICAL PATHOLOGY (05/01/2022 8:15 EDT) Note to Patient The following pathology results have been interpreted by your pathologist and may be available to you before your health provider has had the opportunity to review them. Please allow time for your provider to receive these results and explore management options, if applicable. 05/05/2022 9:46 EST [facility] Final Diagnosis A. SKIN OF CALF, RIGHT, PUNCH BIOPSY: - Dermatofibroma. - Dermatofibroma present at peripheral tissue edge. B. SKIN OF THIGH, LEFT UPPER, PUNCH BIOPSY: - Dermatofibroma. - Dermatofibroma present at peripheral tissue edge. 05/05/2022 9:46 [facility] Attestation By the signature below, the attending physician certifies that they have 1) personally conducted a gross and/or microscopic examination of the described specimen(s), and/or personally interpreted the results of laboratory testing of the described specimen(s), and 2) personally rendered or confirmed the above diagnosis. 05/05/2022 9:46 [facility] at 0946 Microscopic Description There is irregular epidermal hyperplasia with basal hyperpigmentation . Within the dermis, there is a spindle cell proliferation accompanied by histiocytes. The spindle cells have plump nuclei that vary to a mild degree in size and shape. The proliferation is associated with thick bundles of collagen (collagen trapping) and areas of sclerosis. 05/05/2022 9:46 [facility] Clinical History A. Skin lesion RT calf x 5-6 yrs, changing, growing; B. Skin lesion left upper thigh x 1 yr, changing 05/05/2022 9:46 [facility] Gross Description A. Received in formalin labelled with proper patient identification (initials L, J) and 1. R calf is a punch biopsy of ku-white to ku-rodriguez skin (0.3 cm in diameter and 0.2 cm in thickness). The margin is wispy. Submitted intact in A1. B. Received in formalin labelled with proper patient identification (initials L, J) and 2. L upper thigh is a punch biopsy of ku-white skin (0.2 cm in diameter and 0.1 cm in thickness). Submitted intact in B1. ROBERT BELL 05/02/2022 11:11 05/05/2022 9:46 [facility] Performing Lab [facility] 05/05/2022 9:46 [facility] Scanned Images 05/05/2022 9:46 [facility] Tissue TISSUE SPECIMEN FROM SKIN / Unknown 05/01/2022 8:15 EDT 05/02/2022 9:42 EDT Tissue specimen (specimen) SPECIMEN FROM SKIN / Unknown 05/01/2022 8:15 EDT 05/02/2022 9:42 EDT Jessica Mohamud APRN PATHOLOGY ORDERAB LES [facility] [address] [place] [address] documented in this encounter Visit Diagnoses Diagnosis Encounter for other general examination documented in this encounter Care Teams Associate Counsel Relationship Specialty Start Date End Date Jessica Mohamud, KOTA [address] [place] [address] PCP - General 01/19/19 documented as of this encounter
--- OUTSIDE RECORDS SUMMARY | 2024-05-03 07:21 | XMS_ITS | Encounter Summary ---
Author Organization [facility] Address [address] [place] [address] Care Team Providers Care Carbonator Name Role Phone Halina Segura INTERACTIVE MEDIA MARKETING DIRECTOR Primary Care Provider + Encounter Details Date Type Department Care Team (Late st Contact Info) Description 09/04/2015 Results Only [facility] [phone] Chance Steele, DO [address] [facility] [address] [place], [place] [phone] Social History Tobacco Use Types Packs/Day Years Used Date Smoking Tobacco: Never Assessed Sex and Gender Information Value Date Recorded Sex Assigned at Not on file Gender Identity Not on file Sexual Orientation Not on file documented as of this encounter Plan of Treatment Not on file documented as of this encounter Procedures Procedure Name Priority Date/Time Associated Diagnosis Comments SURGICAL PATHOLOGY Routine 09/04/2015 9:59 EST documented in this encounter Results * SURGICAL PATHOLOGY (09/04/2015 9:59 EST) Pathology Report: SURGICAL PATHOLOGY REPORT Reports generated via electronic interface contain original data; however they are lacking the format of the original report. Caution should be taken when reading/interpret ing unformatted reports. Name: ? YANETH DESOUZA ? Accession #: ? [id number] ? : ? 1990 (Age: 24) ??F ? Collect Date: ? 09/04/2015 ? Location: ? [facility] ? Receive Date: ? 09/05/2015 ? Provider: CHANCE STEELE DO Copy to: MONTEZ HOWARD MD ? Final Pathologic Diagnosis: A. DUODENUM, RANDOM BIOPSIES: - ??Duodenal mucosa with focal foveolar metaplasia and Ken's gland hyperplasia consistent with peptic duodenitis. B. STOMACH, ANTRUM, BIOPSIES: - ??Gastric antral mucosa with reactive (chemical) gastropathy. - ??No evidence of H. pylori on H&E stain. C. ESOPHAGUS, DISTAL, BIOPSIES: - ??Squamous mucosa with histologic features of reflux esophagitis. ?? D. ESOPHAGUS, PROXIMAL, BIOPSIES: - ??Squamous mucosa with no specific pathologic features.. ?? E. TERMINAL ILEUM, BIOPSIES: - ??Ileal mucosa with no specific pathologic features. F. COLON, ASCENDING, BIOPSIES: - ??Colonic mucosa with no specific pathologic features. G. COLON, TRANSVERSE, POLYP, BIOPSY: - ??Sessile serrated adenoma. H. COLON, TRANSVERSE, BIOPSIES: - ??Colonic mucosa with reactive lymphoid aggregate. I. COLON, DESCENDING, BIOPSIES: - ??Colonic mucosa with focal hyperplastic changes. J. COLON, SIGMOID, BIOPSIES: - ??Colonic mucosa with reactive lymphoid aggregate. K. RECTUM, BIOPSIES: - ??Colonic mucosa with no specific pathologic features. Document reviewed and electronically signed by: TALA SCOTT MD Report ??Date: 09/07/2015 14:55 By the signature above, the attending physician certifies that he/she has personally conducted a gross and/or microscopic examination of the described specimens and rendered or confirmed the above diagnosis. Specimen(s) Received: A. ??Duodenal bxs random B. ??Antral bxs C. ??Distal esophagus D. ??Proximal esophagus E. ??Terminal ileum F. ??Ascending colon bx G. ??Transverse colon polyp H. ??Transverse colon bxs I. ?? Descending colon bxs J. ??Sigmoid colon K. ??Rectum Clinical History: LUQ pain Gross Description: A. ?Received in formalin labelled with proper patient identification (initials G, J) and bx duodenum random are six fragments of ku-pink tissue (0.2 x 0.2 x 0.2 cm to 0.4 x 0.2 x 0.2 cm). The specimens are submitted entirely in A1 and A2. B. ?Received in formalin labelled with proper patient identification (initials G, J) and antrum bx are two fragments of ku-pink tissue (each 0.3 x 0.2 x 0.2 cm). The specimens are submitted entirely in B1. C. ?Received in formalin labelled with proper patient identification (initials G, J) and distal esophagus are two fragments of ku-pink tissue (each 0.2 x 0.2 x 0.1 cm). The specimens are submitted entirely in C1. D. ?Received in formalin labelled with proper patient identification (initials G, J) and proximal esophagus are two fragments of ku-white tissue (each 0.2 x 0.1 x 0.1 cm). The specimens are submitted entirely in D1. E. ?Received in formalin labelled with proper patient identification (initials G, J) and terminal ileum are two fragments of ku-pink tissue (each 0.3 x 0.2 x 0.2 cm). The specimens are submitted entirely in E1. F. ?Received in formalin labelled with proper patient identification (initials G, J) and ascending colon are two fragments of ku-pink tissue (each 0.2 x 0.2 x 0.1 cm). The specimens are submitted entirely in F1. G. ?Received in formalin labelled with proper patient identification (initials G, J) and transverse colon polyp is a single fragment of ku-brown polypoid tissue (0.6 x 0.5 x 0.4 cm). The surgical margin is inked blue. The specimen is submitted entirely in G1. H. ?Received in formalin labelled with proper patient identification (initials G, J) and transverse colon bx are two fragments of ku-pink tissue (each 0.2 x 0.2 x 0.1 cm). The specimens are submitted entirely in H1. I. ?Received in formalin labelled with proper patient identification (initials G, J) and descending colon bx are three fragments of ku-pink tissue (each 0.2 x 0.2 x 0.1 cm). The specimens are submitted entirely in I1. J. ?Received in formalin labelled with proper patient identification (initials G, J) and sigmoid colon are two fragments of ku-pink tissue (0.2 x 0.1 x 0.1 and 0.3 x 0.2 x 0.1 cm). The specimens are submitted entirely in J1. K. ?Received in formalin labelled with proper patient identification (initials G, J) and rectal bx are two fragments of ku-pink tissue (each 0.2 x 0.2 x 0.1 cm). The specimens are submitted entirely in K1. Brandie09/05/2015 11:19 AM End of Report [facility] 09/04/2015 9:59 EST 09/05/2015 9:59 EST Chance Steele DO PATHOLOGY ORDER [facility] [address] [place] [address] documented in this encounter Visit Diagnoses Not on filedocumented in this encounter Care Teams Carbonator Relationship Specialty Start Date End Date Halina Segura NP [address] [place] [phone] PCP - General 12/11/11 09/06/15 documented as of this encounter
--- OUTSIDE RECORDS SUMMARY | 2024-05-03 07:21 | XMS_ITS | Encounter Summary ---
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 Pulp Name Role Phone Presley Santillan MD Primary Care Provider [phone] Reason for Visit * Auth/Cert Specialty Diagnoses / Procedures Referred By Contac t Referred To Contact Diagnoses Acute ITP THROMBOCYTOPENIA Procedures emergency ipi Referral ID Status Reason Start Date Expiration Date Visits Re quested Visits Authorized [id number] 1 1 Encounter Details Date Type Department Care Team (Latest Contact Info) Description 02/10/2017 7:43 PM EDT - 02/13/2017 2:31 PM EDT Hospital Encounter [address] [place] [id number] Hemal Goodrich Jr., MD [facility] [address] [place]EMAT[place] [address] Acute ITP Discharge Disposition: Home Social History Tobacco Use Types Packs/Day Years Used Date Smoking Tobacco: Never Assessed Sex and Gender Information Value Date Recorded Sex Assigned at Not on file Gender Identity Not on file Sexual Orientation Not on file documented as of this encounter Last Filed Vital Signs Vital Sign Reading Time Taken Comments Blood Pressure 102/70 02/13/2017 12:31 PM EDT Pulse 89 02/13/2017 12:31 PM EDT Temperature 36.8 ??C (98.2 ??F) 02/13/2017 12:31 PM E DT Respiratory Rate 20 02/13/2017 12:31 PM EDT Oxygen Saturation 100% 02/13/2017 12:31 PM EDT Inhaled Oxygen Concentration - - Weight 59.6 kg (131 lb 6.3 oz) 02/12/2017 11:15 AM EDT Height 156.5 cm (5' 1.61) 02/10/2017 7:51 PM ED T Body Mass Index 24.33 02/10/2017 7:51 PM EDT documented in this encounter Discharge Summaries * Hemal Goodrich MD - 02/13/2017 1:09 PM EDT Discharge Summary Patient Name: Daniela Gardner Patient Age: 26 y.o. Language: Turkish Race: White Ethnicity: Not nor Admit date: 02/10/2017 Discharge date and time: 02/13/2017 Attending Physician: Hemal Goodrich MD Discharge Physician: Nitesh Mao DO ID: Daniela Gardner is a 26 y.o. female w/ PMH of IBS and Raynoud's phenomenon admitted for idiopathic thrombocytopenic purpura. Follow-up Recommendations for Providers: ITP - Please check weekly CBC's to monitor thrombocytopenia - If patient has recurrent thrombocytopenia, consider steroids with a transition to rituximab - If patient continues to have refractory disease, then may need a thrombopoietin agonist or splenectomy - Please follow up with recommendations from Hematology on 02/17/17 for further ITP management Colitis - Please follow up with recommendations from GI on 02/17/17 regarding IBS / ?IBD management Hx of polyarthralgias: Positive MARK, Negative anti-ds DNA: - Consider rheumatological workup after IBD workup - Please follow MARK titer final results Discharge Diagnoses (Hospital Problems) and Secondary Diagnoses (Chronic Problems): Active Hospital Problems Diagnosis ??? Acute ITP Resolved Hospital Problems Diagnosis Date Resolved No resolved problems to display. Active Non-Hospital Problems Diagnosis ??? Thrombocytopenia History of Presentation (per 02/10/2017 Admission H&P): Ms. Daniela Gardner is a 26 y/o female with a past medical hx significant for irritable bowel syndrome, and Raynaud's phenomenon. She presents today from her home in [place], [place] after being found to have progressive thrombocytopenia. ?? History is collected from pt, her mother, and father at the bedside. Daniela has experienced significant constipation over the course of her life since childhood. She describes bouts of 3-5/10 abdominal pain with alternating constipation and diarrhea. Her sx prompted a colonoscopy around 18 months ago which revealed polyps (report not available). Typically, shecan handle the bouts wherein the pain is 3-5/10, however, for the past 5-6 days she has experiencedabdominal pain that is 7-8/10 in nature. The pain is constant, begins in the epigastric area then spreads to the LUQ and LLQ, pressure, at times stabbing with associated dyspnea. Feels like something is stuck trying to push its way out. For the past 1 month, Daniela has developed severe nausea with daily vomiting, puking beyond control which she treats with phenergan/zofran intermittently. The vomiting has been worse over the past 5 days leading to reduced PO intake. ?? A CT was reportedly obtained in her local ED which revealed colitis. At that time, her platelets were also noted to be low (do not have OSH records but per Presley Choudhary they were 61k). No splenomegaly was visualized on that CT. Over the course of her life, pt has not had blood in her stool but didnote something that looked like tomato skins in her stool. ?? On ROS, pt endorses bleeding of the gums with brushing her teeth for years, very heavy menstrual periods with golf ball sized clots on the first day of her menstrual period, heavier in the past 1 year, low grade fevers 1 month ago to 100.1, constant aching in all joints. Pertinent negative ROS include no rash, no joint swelling, no headaches, no chest pressure pain or dyspnea. Hospital Course: Daniela Gardner was admitted to the Hematology Service on 02/10/2017 in stable condition. The following issues were addressed and she was discharged on 02/13/2017. #Idiopathic Thrombocytopenic Purpura Patient was admitted with a platelet count of 17 after being found to have thrombocytopenia and colitis at an outside hospital. Patient had full workup of possible causes of thrombocytopenia. Peripheral smear revealed marked thrombocytopenia but no other abnormalities were seen. DIC panel was negative. Negative test. Negative H. Pylori, HIV, and HBV/HCV. IgG and IgA were normal, so IVIGand dexamethasone were started for suspected ITP. Her platelet count improved to 86 after two treatments of IVIG and 3/4 doses of dexamethasone. She was discharged with instructions to take an additional dose of dexamethasone the day following discharge. #Colitis Patient had CT done at OSH that revealed colitis of either infectious or inflammatory etiology involving her descending an sigmoid colon. Patient was able to move her bowels with minimal pain throughout the admission. Thought was inflammatory versus viral infection, both of which could cause thrombocytopenia. Gastroenterology was consulted and recommended outpatient workup for possible IBD. She was instructed to follow-up with GI on 02/17. #Hx of polyarthralgia Patient has a history of diffuse joint pains with no history of skin rash. She had positive MARK andnegative anti-ds DNA testing. The MARK titer was pending at the time of discharge. She was provided follow-up with her PCP. DISCHARGE BASIC LABS: Recent Labs 02/13/17 0328 02/12/17 0308 02/11/17 0510 WBC 10.2* 4.6 7.3 HGB 11.5* 12.8 12.4 HCT 31.8* 35.2* 34.7* PLATELET 86* 33* 18* Recent Labs 02/13/17 0328 02/12/17 0308 02/11/17 0510 NA 136 136 140 K 3.8 4.5 3.3* CL 101 104 103 CO2 19* 18* 23 BUN 9 8 6* CREATININE 0.82 0.78 0.80 MAGNESIUM 0.84 0.96 -- Recent Labs 02/10/17 2237 BILITOT 0.7 AST 15 ALT 9 ALKPHOS 50 Recent Labs 02/10/172236 INR 1.1 PTT 30 b-hCG: negative Microbiology/Immunological Studies H. Pylori, HIV, HBV/HCV: Negative MARK: Positive Anti-ds DNA Ab: Negative Pending studies: MARK titer Pertinent radiology/diagnostic studies: Peripheral blood smear: Marked thrombocytopenia in an otherwise unremarkable peripheral smear Discharge Conditions/Prognosis: Upon discharge the pt is hemodynamically stable, afebrile, fully ambulatory without requiring supplemental oxygen, holding down food/drink, and pain free Vital Signs: Last value Range last 24 hrs Temperature Temp: 36.8 ??C (98.2 ??F) Temp: [36.4 ??C (97.5 ??F)-37 ??C (98.6 ??F)] Heart Rate Heart Rate: 89 Heart Rate: [74-107] Blood Pressure BP: 102/70 BP: (98-116)/(52-72) Respiratory Rate Resp: 20 Resp: [16-20] SpO2 SpO2: 100 % SpO2: [98 %-100 %] General:??Pleasant, in NAD, family in the room HEENT:??EOMI, PERRLA, no pallor, anicteric sclera. OP clear, MMM Neck:??Supple with normal ROM. No obvious LAD. Cardiac:??Normal rate, regular rhythm, no m/g/r. JVD estimated flat. Pulses full and equal. Respiratory:??Nonlabored. CTA-B without wheezes/rhonchi/rales. Abd:??mild tender to light palpation throughout, especially LUQ , no ascites, no rebound tenderness Ext:??WWP, no C/C/E Neuro:??CN II-XII grossly intact; grossly non-focal MSK: Normal ROM in upper and lower extremity, no crepitus in bilateral hips, knees and ankles. Skin:??Ecchymosis on arms, legs, hips and back improving Discharge to: Home Discharge Medications: Your Medications New Medications Dose Details dexamethasone 4 mg Tab Commonly known as: DECADRON Take 10 tablets by mouth once for 1 dose. Start taking on: 02/14/2017 40 mg Quantity: 10 tablet Refills: 0 pantoprazole 40 mg Tbec Commonly known as: PROTONIX Take 1 tablet by mouth daily. 40 mg Quantity: 10 tablet Refills: 0 Updated Allergies/ADRs: Allergies Allergen Reactions ??? [place] Other (See Comments) Abdominal pain ??? Cis Free Text Allergy environmental. CIS - Allergic Rhinitis ??? Gluten Other (See Comments) Abdominal pain/intestinal pain ??? Milk Containing Products Other (See Comments) Abdominal/intestinal pain ??? Peanut Other (See Comments) Abdominal pain ??? Yeast Other (See Comments) Abdominal/intestinal pain ??? Cis Free Text Allergy sugars. CIS - Sensitive Instructions Given to Patient at Discharge: Patient Instructions Instructions on Discharge to Home Why you were hospitalized - You were hospitalized for immune thrombocytopenic purpura, an autoimmune condition that results in low platelet counts. Call your doctor or seek medical attention if you develop the following - chest pain, shortness of breath, fever, cough, weakness in an arm or leg Activity level - no restrictions Diet - no change in previous diet Driving - NO DRIVING with use of sedating drugs/medications (such as Ativan/lorazepam, oxycodone, trazodone, etc.) and/or feeling of passing out, lightheadedness, or dizziness Shower/Bath - permitted Wound Care - none Home Oxygen therapy - none Changes in Your Medications: New Medications: pantoprazole (for 10 days), dexamethasone (for 1 day) Medication dose changes: none Stop these medications: none Follow-up: Future Appointments Date Time Provider Department Center 02/17/2017 10:00 AM LABORATORY, TECH [facility] 02/17/2017 11:00 AM Yovani Fajardo MD [facility] 02/17/2017 1:00 PM Litzy Barron APRN [facility] 03/06/2017 4:15 PM Jessica Mohamud [place] Your Inpatient Doctor: Hemal Goodrich MD Your Primary Care Provider: Presley Santillan MD [phone] For questions regarding this document or issues relating to this hospitalization on the Medical Service, please contact your inpatient physician through the [facility] [facility] . Issues afterhours and on weekends will be handled by the Hospitalist staff on-call. General Instructions None Future Appointments and Orders Future Appointments Provider Department Dept Phone 02/17/2017 10:00 AM LABORATORY, TECH [facility] [phone] 02/17/2017 11:00 AM Yovani Fajardo MD [facility] [phone] 02/17/2017 1:00 PM Litzy Barron APRN Gastroenterology [phone] Provider Contact Information: Presley Santillan MD [address] / [place] [address] Discharge References/Attachments: Discharge References/Attachments None Inpatient BMT/Hematology Staff Addendum I have independently interviewed and examined this patient and have personally reviewed the relevant clinical, laboratory and radiological data with the housestaff on rounds. Please refer to the comprehensive Discharge Summary, with which I concur, for complete details of our encounter with this patient. I have reviewed and endorse the plan as outlined and have made any additions/corrections below. This patient meets criteria for inpatient level of care based on the above medical complexity. ? 26 year old woman with h/o chronic constipation and variable GI sxs thus far attributed to IBS, then recent symptom exacerbation, adm'd on 02/10 after incidental finding of significant, progressive thrombocytopenia at OSH ED visit with GI complaints. Also s/p CT c/w infectious vs inflammatory colitis at that visit ([facility]). ? Based on the above, we proceeded with GI CS, and results of remote colo (18 months ago) pursued with non-specific findings noted. In addition, following a lab work-up that was unrevealing for the thrombocytopenia, we proceeded with empiric steroids (dex 40 mg/d x4) and IVIG for presumed ITP (the dxof exclusion). Based on favorable response now with platelets 86k, this is c/w ITP, so will discharge for outpatient f/u with Heme, GI (for cont'd work-up, as nec) and PCP. Above plan reviewed with the patient and her mother, all questions addressed, and they are onboard with this plan. Updated Plan: 1. Discharge today. 2. No further IVIG currently indicated. 3. To complete dex as outpt. 4. RTC for Heme and GI f/u on 02/17. ? RENETTA Goodrich MD Heme/Onc Section documented in this encounter Discharge Instructions * Patient Instructions* Yovani Kumar - 02/12/2017 4:42 PM EDT Instructions on Discharge to Home Why you were hospitalized - You were hospitalized for immune thrombocytopenic purpura, an autoimmune condition that results in low platelet counts. Call your doctor or seek medical attention if you develop the following - chest pain, shortness of breath, fever, cough, weakness in an arm or leg Activity level - no restrictions Diet - no change in previous diet Driving - NO DRIVING with use of sedating drugs/medications (such as Ativan/lorazepam, oxycodone, trazodone, etc.) and/or feeling of passing out, lightheadedness, or dizziness Shower/Bath - permitted Wound Care - none Home Oxygen therapy - none Changes in Your Medications: New Medications: pantoprazole (for 10 days), dexamethasone (for 1 day) Medication dose changes: none Stop these medications: none Follow-up: Future Appointments Date Time Provider Department Center 02/17/2017 10:00 AM LABORATORY, TECH [facility] 02/17/2017 11:00 AM Yovani Fajardo MD [facility] 02/17/2017 1:00 PM Litzy Barron APRN [facility] 03/06/2017 4:15 PM Jessica Mohamud APRN [place], [place] Your Inpatient Doctor: Hemal Goodrich MD Your Primary Care Provider: Presley Santillan MD [phone] For questions regarding this document or issues relating to this hospitalization on the Medical Service, please contact your inpatient physician through the [facility] [facility] . Issues afterhours and on weekends will be handled by the Hospitalist staff on-call. documented in this encounter Medications at Time of Discharge Medication Sig Dispensed Refills Start Date End Date QUEtiapine (SEROQUEL) 100 mg Tablet Take 100 mg by mouth nightly. 01/19/2017 09/23/2017 NYSTOP Powder 12/26/2016 03/11/2017 budesonide (ENTOCORT EC) 3 mg Capsule, Delayed & Ext.Release 02/09/20172016 amitriptyline (ELAVIL) 25 mg Tablet 11/13/2016 03/11/2017 dexamethasone (DECADRON) 4 mg Tablet Take 10 tablets by mouth once for 1 dose. 10 tablet 02/14/2017 02/14/2017 pantoprazole (PROTONIX) 40 mg Tablet, Delayed Release (E.C.) Take 1 tablet by mouth daily. 10 tablet 02/13/2017 02/17/2017 documented as of this encounter Progress Notes * Floridalma Schilling RN - 02/13/2017 1:26 PM EDT Daniela tolerated plan of care for the day. VSS no complaints of pain. Pt complained on heartburn,given scheduled Protonix and the heartburn resolved over time. Pt expressed anxiety over financial issues, care management talked with pt and gave her information about available resources. Pt noted a decrease in appetite but continues to tolerate food well. Pt discharged to home via family memberscare. AVS reviewed with patient and mother, all questions and concerns addressed. PIV taken out, dressing c/d/i. * Diamond Morelos RN - 02/13/2017 12:32 PM EDT Per team recommendation, gave patient information, contact and application for financial assistanceand medication assistance. Diamond Morelos RN Case Management for [facility] pgr [phone] * Hemal Goodrich MD - 02/13/2017 11:36 AM EDT Inpatient BMT/Hematology Staff Pre-Discharge Note I have independently interviewed and examined this patient and have personally reviewed the relevant clinical, laboratory and radiological data with the housestaff on rounds. Please refer to the comprehensive progress note from today, with which I concur, for complete details of our encounter with this patient. I have reviewed and endorse the plan as outlined and have made any additions/corrections below. This patient meets criteria for inpatient level of care based on the above medical complexity. ? 26 year old woman with h/o chronic constipation and variable GI sxs thus far attributed to IBS, then recent symptom exacerbation, adm'd on 02/10 after incidental finding of significant, progressive thrombocytopenia at OSH ED visit with GI complaints. Also s/p CT c/w infectious vs inflammatory colitis at that visit ([facility]). ? Based on the above, we proceeded with GI CS, and results of remote colo (18 months ago) pursued with non-specific findings noted. In addition, following a lab work-up that was unrevealing for the thrombocytopenia, we proceeded with empiric steroids (dex 40 mg/d x4) and IVIG for presumed ITP (the dxof exclusion). Based on favorable response now with platelets 86k, this is c/w ITP, so will discharge for outpatient f/u with Heme, GI (for cont'd work-up, as nec) and PCP. Above plan reviewed with the patient and her mother, all questions addressed, and they are onboard with this plan. Updated Plan: 1. Discharge today. 2. No further IVIG currently indicated. 3. To complete dex as outpt. 4. RTC for Heme and GI f/u on 02/17. ? RENETTA Goodrich MD Heme/Onc Section * Hemal Goodrich MD - 02/12/2017 5:50 AM EDT Inpatient Hematology/Oncology/SCT Progress Note Patient info: Name: Daniela Gardner : 1990 PCP: Presley Santillan MD PCP phone number: [phone] Date of Admission: 02/10/2017 ( Hospital Day 2 days ) Service: Hem/Onc Team A pg [id number] (19/01) Responsible Attending:Hemal Goodrich MD ID: Daniela Gardner is a 26 y.o. w/ PMH of IBS and Raynoud's phenomenon admitted for progressive thrombocytopenia. 24 Hour Events/subjective: Patient had an increasing temperature overnight to the IVIG. It was stopped and then restarted onceher temperature started to come down again. She did not have a clinical fever. She completed the IVIG at 2300. Overall she is feeling well. She required a one time dose of Seroquel that helped assistwith sleep. She is having minimal abdominal pain today and no bowel movements overnight. She notes joint pain in her hips and knees, improved with steroids. Patient mentions today that she was started on Budesonide as an outpatient to see if it improved bowel symptoms. She only took one dose and then came to the hospital as she was found to have low platelets. Vitals: Last value Range last 24 hrs Temperature Temp: 36.8 ??C (98.2 ??F) Temp: [36.7 ??C (98.1 ??F)-37.3 ??C (99.1 ??F)] Heart Rate Heart Rate: 96 Heart Rate: [58-96] Blood Pressure BP: 114/58 BP: (100-114)/(52-60) Respiratory Rate Resp: 18 Resp: [16-18] SpO2 SpO2: 98 % SpO2: [98 %-100 %] Intake/Output Summary (Last 24 hours) at 02/12/17 1034 Last data filed at 02/12/17 0914 Gross per 24 hour Intake 748 ml Output 1700 ml Net -952 ml Patient Vitals for the past 168 hrs: Weight 02/10/17 1951 59 kg (130 lb 1.1 oz) Admit wt: 59 kg Physical Exam: General: Pleasant, in NAD, family in the room HEENT: EOMI, PERRLA, no pallor, anicteric sclera. OP clear, MMM Neck: Supple with normal ROM. No obvious LAD. Cardiac: Normal rate, regular rhythm, no m/g/r. JVD estimated flat. Pulses full and equal. Respiratory: Nonlabored. CTA-B without wheezes/rhonchi/rales. Abd: tender to light palpation throughout, especially LUQ , no ascites, no rebound tenderness Ext: WWP, no C/C/E Neuro: CN II-XII grossly intact; grossly non-focal MSK: Normal ROM in upper and lower extremity, no crepitus in bilateral hips, knees and ankles. Skin: Ecchymosis on arms, legs, hips and back Medications: Scheduled Meds: ??? dexamethasone inj 40 mg Intravenous Daily ??? sodium chloride 0.9 % 5 mL Intravenous BID Continuous Infusions: PRN Meds:.acetaminophen, diphenhydrAMINE, sodium chloride 0.9 %, lidocaine, ondansetron OR ondansetron, prochlorperazine OR prochlorperazine Labs: Recent Labs 02/12/17 0308 02/11/17 0510 02/10/172236 WBC 4.6 7.3 8.4 HGB 12.8 12.4 12.9 HCT 35.2* 34.7* 35.7 PLATELET 33* 18* 17* NEUTROABS 4.15 3.69 5.10 Recent Labs 02/12/17 0308 02/11/17 0510 02/10/172236 NA 136 140 140 K 4.5 3.3* 3.5 CL 104 103 102 CO2 18* 23 20* BUN 8 6* 6* CREATININE 0.78 0.80 0.80 Recent Labs 02/12/17 0308 02/11/17 0510 02/10/172236 CALCIUM 9.1 9.0 9.5 MAGNESIUM 0.96 -- -- Recent Labs 02/10/172236 AST 15 ALT 9 ALKPHOS 50 BILITOT 0.7 Recent Labs 02/10/172236 INR 1.1 PT 14.9 PTT 30 Ig IgA: 189 Hepatitis C: Negative MARK: Abnormal, titer to follow Folate and B12: Normal Microbiology: None Pertinent radiology/diagnostic studies: CT Abdomen/Pelvis Wall thickening of descending and rectosigmoid colon. Concern for infectious vs inflammatory colitis. Peripheral Smear Marked thrombocytopenia in an otherwise normal peripheral smear ASSESSMENT/PLAN: Daniela Gardner is a 26 y.o. w/ PMH of IBS and Raynoud's phenomenon admitted for progressive thrombocytopenia. Workup so far has been negative for DIC, B12 deficiency, folate deficiency, , HIV. With these new findings of thrombocytopenia, absence of splenomegaly, and bruising seen onher lower extremities, there is a concern for ITP. MARK has been found to be abnormal, so we will await titer results and pattern to determine possible further workup. We will wait on H. pylori blood test. Colonoscopy results with pathology were obtained from OSH. Multiple biopsies taken that were inconclusive in determining inflammatory bowel disease. Patient's joint pain in the lower extremitiesmay also be concerning for inflammatory process. Will discuss with GI regarding further workup. Thrombocytopenia Labs - Follow MARK - Follow H. Pylori - Hold on platelet transfusions Medications - Continue IVIG today - Continue Dexamethasone today Colitis Medications - Consider Ciprofloxacin - Consider Metronidazole Consults - Gastroenterology Consult for colonoscopy consideration Insomnia - Seroquel 25 mg PRN Nausea/Vomiting - Discontinue IV fluids - Continue Compazine - Continue Zofran PPx DVT - SCDs GI - Pantoprazole Diet - Regular diet/Gluten free diet Dispo - Pending course Nitesh Mao DO PGY1 Internal Medicine 02/12/2017 Pager #[phone] 19/01 Heme/Onc/BMT Team A Pager #[phone] Inpatient BMT/Hematology Staff Addendum I have independently interviewed and examined this patient and have personally reviewed the relevant clinical, laboratory and radiological data with the housestaff on rounds. Please refer to the comprehensive progress note from today, with which I concur, for complete details of our encounter with this patient. I have reviewed and endorse the plan as outlined and have made any additions/corrections below. This patient meets criteria for inpatient level of care based on the above medical complexity. ? 26 year old woman with h/o chronic constipation and variable GI sxs thus far attributed to IBS, then recent symptom exacerbation, adm'd on 02/10 after incidental finding of significant, progressive thrombocytopenia at OSH ED visit with GI complaints. Also s/p CT c/w infectious vs inflammatory colitis at that visit ([facility]), so will try to further elucidate GI status in the context of a heme work-up. ?? Based on the above, we have proceeded with stool work-up and a GI CS, and results of remote colo (18 months ago) pursued with non-specific findings noted. In addition, following preliminary lab work-up that is unrevealing for the thrombocytopenia, we have proceeded with empiric steroids (dex 40 mg/d x4) and IVIG for presumed ITP (the dx of exclusion). As of this AM, there is an apparent early response to the IVIG, so will consider discharge as early as 02/13 (Thu) with outpatient Heme (Dr. [place]), GI (for cont'd work-up, as nec) and PCP. Above plan reviewed with the patient and her mother, all questions addressed, and they are onboard with this plan. ? RENETTA Goodrich MD Heme/Onc Section * Hemal Goodrich MD - 02/11/2017 7:06 AM EDT Inpatient Hematology/Oncology/SCT Progress Note Patient info: Name: Daniela Gardner : 1990 PCP: Presley Santillan MD PCP phone number: [phone] Date of Admission: 02/10/2017 ( Hospital Day 1 day ) Service: Hem/Onc Team A pg [id number] (19/01) Responsible Attending:Hemal Goodrich MD ID: Daniela Gardner is a 26 y.o. w/ PMH of IBS and Raynoud's phenomenon admitted for progressive thrombocytopenia. 24 Hour Events/subjective: Admitted overnight. 3/10 abdominal pain this morning. Continues to have diarrhea one to two times per day. Vitals: Last value Range last 24 hrs Temperature Temp: 37.2 ??C (99 ??F) Temp: [37 ??C (98.6 ??F)-37.2 ??C (99 ??F)] Heart Rate Heart Rate: 100 Heart Rate: [100-104] Blood Pressure BP: 98/58 BP: (98-108)/(58-68) Respiratory Rate Resp: 18 Resp: [18] SpO2 SpO2: 97 % SpO2: [97 %-99 %] Intake/Output Summary (Last 24 hours) at 02/11/17 0706 Last data filed at 02/11/17 0627 Gross per 24 hour Intake 538 ml Output 700 ml Net -162 ml Patient Vitals for the past 168 hrs: Weight 02/10/17 1951 59 kg (130 lb 1.1 oz) Admit wt: 59 kg Physical Exam: General: Pleasant, in NAD, family in the room HEENT: EOMI, PERRLA, no pallor, anicteric sclera. OP clear, MMM Neck: Supple with normal ROM. No obvious LAD. Cardiac: Normal rate, regular rhythm, no m/g/r. JVD estimated flat. Pulses full and equal. Respiratory: Nonlabored. CTA-B without wheezes/rhonchi/rales. Abd: tender to light palpation throughout, especially LUQ , no ascites, no rebound tenderness Ext: WWP, no C/C/E Neuro: CN II-XII grossly intact; grossly non-focal. Skin: Ecchymosis on arms, legs, hips and back otherwise no petechiae Medications: Scheduled Meds: ??? sodium chloride 0.9 % 5 mL Intravenous BID Continuous Infusions: PRN Meds:.sodium chloride 0.9 %, lidocaine, ondansetron OR ondansetron, prochlorperazine ORprochlorperazine Labs: Recent Labs 02/11/17 0510 02/10/172236 WBC 7.3 8.4 HGB 12.4 12.9 HCT 34.7* 35.7 PLATELET 18* 17* NEUTROABS 3.69 5.10 Recent Labs 02/11/17 0510 02/10/172236 NA 140 140 K 3.3* 3.5 CL 103 102 CO2 23 20* BUN 6* 6* CREATININE 0.80 0.80 Recent Labs 02/11/17 0510 02/10/172236 CALCIUM 9.0 9.5 Recent Labs 02/10/172236 AST 15 ALT 9 ALKPHOS 50 BILITOT 0.7 Recent Labs 02/10/172236 INR 1.1 PT 14.9 PTT 30 No results for input(s): TROPONINT, CK in the last 168 hours. Microbiology: None Pertinent radiology/diagnostic studies: Wall thickening of descending and rectosigmoid colon. Concern for infectious vs inflammatory colitis. ASSESSMENT/PLAN: Daniela Gardner is a 26 y.o. w/ PMH of IBS and Raynoud's phenomenon admitted for progressive thrombocytopenia. Workup so far has been negative for DIC, B12 deficiency, folate deficiency, , HIV. With these new findings of thrombocytopenia, absence of splenomegaly, and bruising seen onher lower extremities, there is a concern for ITP. However, this is a diagnosis of exclusion, so wewill follow the peripheral smear. We will check for possible inciting factors, including MARK with her history of raynaud's and H. Pylori with her history of IBS. ITP is predominately initiated by a viral infection, which could explain her colitis. Colitis may also be from IBD with long standing hist ory of diarrhea and constipation. We will consult GI regarding a colonoscopy and biopsy. Will hold off on steroids as this could stop mask an underlying IBD Thrombocytopenia Labs - Follow Peripheral Smear - Follow MARK - Follow Immunoglobulins - Follow H. Pylori - Follow Hepatitis Panel - Hold on platelet transfusions Medications - Consider IVIG - Hold Dexamethasone Abdominal Pain Medications - Consider Ciprofloxacin - Consider Metronidazole Consults - Gastroenterology Consult for colonoscopy consideration Nausea/Vomiting - Continue IV fluids - Continue Compazine - Continue Zofran PPx DVT - SCDs GI - None Diet - Regular diet/Gluten free diet Dispo - Pending course Nitesh Mao DO PGY1 Internal Medicine 02/11/2017 Pager #[phone] 19/01 Heme/Onc/BMT Team A Pager #[phone] Heme Staff Addendum- Please see my addendum from this date to pt's H+P. -[facility] documented in this encounter H&P Notes * Hemal Goodrich MD - 02/11/2017 5:24 AM EDT Admission History and Physical Patient Name: Daniela Gardner Responsible Attending: MD Kp PCP: Presley Santillan MD PCP phone #: [phone] ID/Chief Complaint: thrombocytopenia History of Present Illness: Ms. Daniela Gardner is a 26 y/o female with a past medical hx significant for irritable bowel syndrome, and Raynaud's phenomenon. She presents today from her home in [place], [place] after being found to have progressive thrombocytopenia. History is collected from pt, her mother, and father at the bedside. Daniela has experienced significant constipation over the course of her life since childhood. She describes bouts of 3-5/10 abdominal pain with alternating constipation and diarrhea. Her sx prompted a colonoscopy around 18 months ago which revealed polyps (report not available). Typically, shecan handle the bouts wherein the pain is 3-5/10, however, for the past 5-6 days she has experiencedabdominal pain that is 7-8/10 in nature. The pain is constant, begins in the epigastric area then spreads to the LUQ and LLQ, pressure, at times stabbing with associated dyspnea. Feels like something is stuck trying to push its way out. For the past 1 month, Daniela has developed severe nausea with daily vomiting, puking beyond control which she treats with phenergan/zofran intermittently. The vomiting has been worse over the past 5 days leading to reduced PO intake. A CT was reportedly obtained in her local ED which revealed colitis. At that time, her platelets were also noted to be low (do not have OSH records but per Presley Choudhary they were 61k). No splenomegaly was visualized on that CT. Over the course of her life, pt has not had blood in her stool but didnote something that looked like tomato skins in her stool. On ROS, pt endorses bleeding of the gums with brushing her teeth for years, very heavy menstrual periods with golf ball sized clots on the first day of her menstrual period, heavier in the past 1 year, low grade fevers 1 month ago to 100.1, constant aching in all joints. Pertinent negative ROS include no rash, no joint swelling, no headaches, no chest pressure pain or dyspnea. Review of Systems: Positives in Bold: General: Denies weight changes, fevers (low grade), chills, night sweats, fatigue, syncope HEENT: Denies WELLS, visual changes, hearing changes, sinus congestion, epistaxis Chest: Denies CP, palpitations, othopnea, PND, cough, wheezing, SOB/PERRY GIT: Denies N/V, abd pain, dysphagia, blood in stools, constipation, diarrhea : Denies dysuria, increased frequency, polyuria, anuria/oliguria, discharge MSK: Denies myalgias, arthralgias, weakness, stiffness, LE swelling Skin: Denies recent rash, skin break down, easy brusing Neuro: Denies pain, tingling, numbness, focal weakness, seizure activity, tremors, spacticity Problem List/Past Medical History Patient Active Problem List Diagnosis ??? Thrombocytopenia ??? Acute ITP Meds: No herbal medications- had previously been rx thyroid supplementation by a bilingual patient support caseworker that she self d/c Allergies: Allergies Allergen Reactions ??? [place] Other (See Comments) Abdominal pain ??? Cis Free Text Allergy environmental. CIS - Allergic Rhinitis ??? Gluten Other (See Comments) Abdominal pain/intestinal pain ??? Milk Containing Products Other (See Comments) Abdominal/intestinal pain ??? Peanut Other (See Comments) Abdominal pain ??? Yeast Other (See Comments) Abdominal/intestinal pain ??? Cis Free Text Allergy sugars. 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 OP clear, MMM Neck: Supple with normal ROM. No obvious LAD. Cardiac: Normal rate, regular rhythm, no m/g/r. JVD estimated flat. Pulses full and equal. Respiratory: Nonlabored. CTA-B without wheezes/rhonchi/rales. Abd: tender to light palpation throughout, especially LUQ, no ascites, no rebound tenderness Ext: WWP, no C/C/E Neuro: CN II-XII grossly intact; grossly non-focal. Skin: multiple bruises on arms, legs, birthmark on back otherwise no petechiae Lines: PIVs Laboratory: Recent Results (from the past 24 hour(s)) Prothrombin Time Result Value Ref Range PT 14.9 12.0 - 15.0 sec INR 1.1 0.9 - 1.1 APTT Result Value Ref Range PTT 30 25 - 35 sec Fibrinogen Result Value Ref Range Fibrinogen 289 180 - 510 mg/dL Thrombin time Result Value Ref Range Thrombin Time 16 15 - 20 sec D-Dimer, Quantitative Result Value Ref Range D-Dimer, Quant <270 0 - 500 FEU ng/ml Beta HCG, quantitative Result Value Ref Range Beta hCG Quant <1 mlU/ML Peripheral Smear Review Result Value Ref Range Periph Smear Rev See Comment HIV Screen, 4th Generation Result Value Ref Range HIV-1/2 Ab and Ag Negative Negative Vitamin B12 Result Value Ref Range Vitamin B-12 549 207 - 974 pg/mL Folate, serum Result Value Ref Range Folate Lvl >20.0 4.8 - 24.2 ng/mL Comprehensive metabolic panel (non-fasting) Result Value Ref Range Glucose Lvl 114 65 - 199 mg/dL BUN 6 (L) 8 - 18 mg/dL Creatinine 0.80 0.70 - 1.20 mg/dL Sodium 140 135 - 145 mmol/L Potassium 3.5 3.5 - 5.0 mmol/L Chloride 102 98 - 107 mmol/L CO2 20 (L) 22 - 31 mmol/L Anion Gap 18 (H) 5 - 15 mmol/L Calcium 9.5 8.5 - 10.5 mg/dL Total Protein 7.6 6.1 - 8.0 gm/dL Albumin 4.3 3.2 - 5.2 gm/dL AST 15 0 - 30 unit/L ALT 9 0 - 30 unit/L Alk Phos 50 40 - 104 unit/L Total Bilirubin 0.7 0.2 - 1.3 mg/dL Estimated GFR >60 >=60 Hemogram Result Value Ref Range WBC 8.4 4.0 - 9.5 x10(3)/mcL RBC 4.16 4.00 - 5.21 x10(6)/mcL Hemoglobin 12.9 11.7 - 15.5 gm/dL Hematocrit 35.7 35.7 - 45.8 % MCV 85.8 82.6 - 94.4 fL MCH 31.0 27.1 - 32.0 pg MCHC 36.1 (H) 31.7 - 35.0 gm/dL Platelets 17 (CRIT) 145 - 357 x10(3)/mcL RDWSD 35.6 (L) 37.0 - 46.0 fL RDWCV 11.5 11.5 - 14.1 % MPV 13.4 (H) 7.6 - 12.9 fL nRBC % Auto 0.0 % nRBC Abs Auto 0.000 0.000 - 0.000 x10(3)/mcL Differential, Automated Result Value Ref Range Neutrophils % 61.0 % Neutr Abs (ANC) 5.10 1.70 - 6.10 x10(3)/mcL Lymphocytes % 30.1 % Lymphocytes Abs 2.5 0.9 - 3.2 x10(3)/mcL Monocytes % 6.5 % Monocyte Abs 0.5 0.3 - 0.9 x10(3)/mcL Eosinophils % 1.9 % Eosinophils Abs 0.2 0.0 - 0.4 x10(3)/mcL Basophils % 0.4 % Basophils Abs 0.0 0.0 - 0.1 x10(3)/mcL Immature Gran % 0.10 % Ellie Gran Abs 0.01 0.00 - 0.04 x10(3)/mcL Scan, Peripheral Blood Result Value Ref Range Plat Estimate Decreased RBC Morphology Normal Microbiology: None Diagnostic Studies: None ASSESSMENT: Daniela Gardner is a 26 y/o female with a past medical hx significant for irritable bowel syndrome, and Raynaud's phenomenon. She is here today due to rapidly progressive thrombocytopenia with concern for ITP. Otherwise, no signs of TTP-HUS (creatinine normal/ mental status normal/ no fever). Aside from her Raynaud's phenomenon, she does not endorse any specific rheumatologic sx. H pylori can potentially cause ITP and given her abdominal sx, it would certainly be worthwhile to investigate whether or not testing for this was done. Her B12 and folate are normal and she is not a heavy alcohol drinker; I asked her parentsto leave the room when discussing these sensitive topics. A serum test is negative. None of the medications she has used as of late are particularly concerning regarding ITP (zofran/ phenergan/ armour thyroid). A DIC panel is negative and her cell lines are otherwise normal. Will await read of peripheral smear and initiate tx in the AM with either IVIG or steroids with confirmation of final dx. Pt and family informed of plan, understanding with all questions answered. PLAN: # Admit to Hem Onc A Team service #thrombocytopenia, concern for ITP -DIC screen negative, b12 folate normal, test negative, hIV screen negative -consider testing for hpylori given significant GI sx -obtain documentation for CT abdomen, colonoscopy, and any Hpylori testing that may have already been done -peripheral smear pending -holding off on plt transfusions at this time #nausea/ vomiting -100cc/hr IVF, compazine/zofran prn PPx: DVT- holding, placed SCDs due to ambulatory status GI- none Code Status: FULL CODE Dispo- admit to 1W Lis Herrera MD Internal Medicine PGY-3 Team Pager # [phone] 02/11/2017 Inpatient BMT/Hematology Staff Addendum I have independently interviewed and examined this patient and have personally reviewed the relevant clinical, laboratory and radiological data with the housestaff on rounds. Please refer to the comprehensive admit note, with which I concur, for complete details of our encounter with this patient. I have reviewed and endorse the plan as outlined and have made any additions/corrections below. Thispatient meets criteria for inpatient level of care based on the above medical complexity. ? 26 year old woman with h/o chronic constipation and variable GI sxs thus far attributed to IBS, then recent symptom exacerbation, adm'd after incidental finding of significant, progressive thrombocytopenia upon OSH ED visit with GI complaints. Also s/p CT c/w infectious vs inflammatory colitis at that visit ([place]), so will need to further elucidate GI status in the context of heme work-up. Based on the above, we have proceeded with stool work-up and a GI CS today, and a colo is being considered pending receipt of prior colo report from 18 months ago. In addition, following preliminary lab work-up that is unrevealing for the thrombocytopenia, we are proceeding with empiric steroids (dex 40 mg/d x4) and IVIG for presumed ITP. Above plan reviewed with the patient and her mother, all questions addressed, and they are onboard with this plan. Hope to confirm Heme dx, optimize counts and clarify GI dx prior to discharge. RENETTA Goodrich MD Heme/Onc Section documented in this encounter Miscellaneous Notes * Plan of Care - Naida Patterson RN - 02/13/2017 3:40 AM EDT Problem: Patient Care Overview Goal: Plan of Care Review Outcome: Ongoing (Interventions Implemented as Appropriate) 02/12/17 1930 02/13/17 0320 Plan of Care Review Progress -- progress towards functional goals is fair Coping/Psychosocial Plan Of Care Reviewed With patient -- OUTCOME EVALUATION NOTE: OUTCOME SUMMARY: IVIG infusion completed. One-time order for Seroquel 25 mg obtained and administered for difficultysleeping. One-time order for Tums 1000 mg obtained and administered for c/o heartburn. Nursing consult for Social Work placed. PLAN MOVING FORWARD: Continue to monitor blood counts and VS. Pain control and emotional support. Social work consult. AM platelet count 86; discharge home later today (02/13) likely. INDIVIDUALIZED FALL PREVENTION INTERVENTIONS: Patient-specific fall risk factors per assessment: [current deficits]: Patient is young and completely independent at baseline. Scores medium on the Cobian Fall Risk scale. Strong and steady gait. Assistance [level of assistance required for transfers and ambulation]: Independent. Supervision [direct monitoring required during toileting and ADLs]: Independent. Surveillance [continuous indirect monitoring]: Purposeful rounding. Call-light within reach and used appropriately. Room near nurses' station. Patient-specific fall prevention interventions for sensory deficits provided, if applicable: N/A CPG GOAL OUTCOME EVALUATION: Goal: Individualization & Mutuality Outcome: Ongoing (Interventions Implemented as Appropriate) 02/13/17319 Individualization Patient Specific Preferences Very particular with phlebotomy draw. Wishes to know platelet count assoon as it's available. Patient Specific Goals Going home as soon as possible. Patient Specific Interventions Requesting specific phlebotomists. Goal: Fall Prevention-Safe Patient Handling Outcome: Ongoing (Interventions Implemented as Appropriate) 02/12/17192902/13/17319 Activity and Safety Assistive Device -- None Daily Care Interventions Self-Care Promotion -- independence encouraged Cobian Fall Risk History of Falling 0 -- Secondary Diagnosis 15 -- Ambulatory Aids 0 -- Intravenous Therapy/Heparin/Saline Lock 20 -- Gait/Transferring 0 -- Mental Status 0 -- Score 35 -- OTHER Cobian Fall Risk Med -- Restraint Interventions Safety Promotion/Fall Prevention activity supervised;fall prevention program maintained;muscle strengthening facilitated;nonskid shoes/slippers when out of bed;safety round/check completed -- Positioning Body Position independent -- Goal: Infection Control Outcome: Ongoing (Interventions Implemented as Appropriate) 02/12/171929 Safety Interventions Isolation Precautions standard precautions maintained Infection Prevention rest/sleep promoted;single patient room provided;environmental surveillance performed Coping Strategies Supportive Measures active listening utilized;verbalization of feelings encouraged Goal: Discharge Needs Assessment Outcome: Ongoing (Interventions Implemented as Appropriate) 02/11/1732002/13/17319 Discharge Needs Assessment Concerns To Be Addressed -- financial/insurance concerns Readmission Within The Last 30 Days -- no previous admission in last 30 days Equipment Needed After Discharge -- none Current Discharge Risk -- financial support inadequate Discharge Disposition still a patient -- Living Environment Transportation Available car;family or friend will provide -- Activity/Self Care Review of Systems Equipment Currently Used at Home -- none Current Health Anticipated Changes Related to Illness -- none Goal: Interdisciplinary Rounds/Family Conf Outcome: Ongoing (Interventions Implemented as Appropriate) 02/13/17 0320 Interdisciplinary Rounds/Family Conf Summary No meeting. * Plan of Care - Floridalma Schilling RN - 02/12/2017 5:54 PM EDT Problem: Patient Care Overview Goal: Plan of Care Review Outcome: Ongoing (Interventions Implemented as Appropriate) OUTCOME EVALUATION NOTE: OUTCOME SUMMARY: Daniela tolerated plan of care for the day. Ambulated independently and denied any symptoms with ambulation. Pt reported an increase in appetite and was able to tolerated meals and snacks throughoutthe day without an increase in GI pain or discomfort. PLAN MOVING FORWARD: Plan for IVIG infusion tonight. Monitor vitals signs and labs. Pain and nausea management. INDIVIDUALIZED FALL PREVENTION INTERVENTIONS: Patient-specific fall risk factors per assessment: [current deficits]: Medium fall risk (65) - independent at baseline. Steady on her feet and nonskid socks on while out of bed. Assistance [level of assistance required for transfers and ambulation]: Independent Supervision [direct monitoring required during toileting and ADLs]: Eyes on. Surveillance [continuous indirect monitoring]: Hourly rounding. Call celestin within reach and rings appropriately. Patient-specific fall prevention interventions for sensory deficits provided, if applicable: CPG GOAL OUTCOME EVALUATION: * Plan of Care - Naida Patterson, HESHAM - 02/12/2017 6:30 AM EDT Problem: Patient Care Overview Goal: Plan of Care Review Outcome: Ongoing (Interventions Implemented as Appropriate) 02/11/17 0321 02/11/17 2100 Plan of Care Review Progress no change -- Coping/Psychosocial Plan Of Care Reviewed With -- patient;father;mother OUTCOME EVALUATION NOTE: OUTCOME SUMMARY: IVIG infusion completed, albeit held for one hour d/t TMax 37.3. One-time order for PRN Seroquel obtained and administered for difficulty sleeping. Otherwise uneventful shift. AM platelets 33, up from 18. PLAN MOVING FORWARD: Continue to monitor blood counts and VS. Continue with steroids and IVIG if ordered. Pain control. Emotional support. INDIVIDUALIZED FALL PREVENTION INTERVENTIONS: Patient-specific fall risk factors per assessment: [current deficits]: Unfamiliar environment and tight quarters. Patient is young and completely independent at baseline. Parents are nurses and have stayed at the bedside to assist. Assistance [level of assistance required for transfers and ambulation]: Independent. Supervision [direct monitoring required during toileting and ADLs]: Independent. Surveillance [continuous indirect monitoring]: Purposeful rounding. Call-light within reach and used appropriately. Room near nurses' station. Family at bedside throughout the night. Semi-private room. Patient-specific fall prevention interventions for sensory deficits provided, if applicable: N/A CPG GOAL OUTCOME EVALUATION: Goal: Fall Prevention-Safe Patient Handling Outcome: Ongoing (Interventions Implemented as Appropriate) 02/11/17 2100 Cobian Fall Risk History of Falling 0 Secondary Diagnosis 15 Ambulatory Aids 0 Intravenous Therapy/Heparin/Saline Lock 20 Gait/Transferring 0 Mental Status 0 Score 35 OTHER Cobian Fall Risk Med Restraint Interventions Safety Promotion/Fall Prevention activity supervised;fall prevention program maintained;muscle strengthening facilitated;nonskid shoes/slippers when out of bed;safety round/check completed Positioning Body Position independent Goal: Infection Control Outcome: Ongoing (Interventions Implemented as Appropriate) 02/11/17 2100 Safety Interventions Isolation Precautions standard precautions maintained Infection Prevention rest/sleep promoted;environmental surveillance performed Coping Strategies Supportive Measures active listening utilized;verbalization of feelings encouraged Goal: Discharge Needs Assessment Outcome: Ongoing (Interventions Implemented as Appropriate) 02/11/17 0321 Discharge Needs Assessment Discharge Disposition still a patient Living Environment Transportation Available car;family or friend will provide Activity/Self Care Review of Systems Equipment Currently Used at Home none Goal: Interdisciplinary Rounds/Family Conf Outcome: Ongoing (Interventions Implemented as Appropriate) 02/11/17 0321 Interdisciplinary Rounds/Family Conf Participants family;nursing;patient * Consult Note - Candi Goldsmith MD - 02/11/2017 6:20 PM EDT [facility] Department of Gastroenterology Inpatient Consult Note Patient info: Daniela Gardner 1990 [id number] Presley Santillan MD Date of Admission: 02/10/2017 ( Hospital Day 1 day ) Attending: Dr. Roberts Service: Gastroenterology Source: patient Reason for Consult: nausea and vomiting, possible colitis History of Present Illness: Ms. Gardner is a 26 y.o. year old woman with a hx of irritable bowel syndrome with chronic constipation and Raynaud's phenomenon, who presented to an OSH with nausea, vomiting and abdominal pain and wasfound to be severely thrombocytopenic. She was subsequently transferred to [facility] for management of her thrombocytopenia. For the past month, she has had severe nausea and daily vomiting, which she attempts to manage with phenergan/zofran with intermittent success. She has had difficulty with PO intake, though she has been able to maintain her weight. She has also had worsening abdominal pain, particularly over the past 5-6 days. Her current pain is constant 7-8/10, initiating in the epigastric area with spread to the LUQ and LLQ. She characterizes the pain as intense pressure, with stabbing pain and associated dyspnea at times. Like the abdominal pain, the vomiting has worsened over the past5 days. Denies any fevers, chills, blood in stool or vomit. She has had significant constipation since childhood. She describes periods of 3-5/10 abdominal pain, with alternating constipation and non-bloody diarrhea. She first had severe abdominal pain, nausea and 20-lb weight loss in 07/2015, with associated fevers and hair loss. She had a colonoscopy at that time at [facility] by Dr. Matute; polyps were identified but other details are unavailable at this point. A CT revealed mild thickening of the wall of the descending and proximal sigmoid colon, consistent decompressed bowel versus colitis. She was recently treated in the ED for pain and nausea, and had a CT scan on 02/05/17 which was consistent with infectious or inflammatory colitis. She was seen by Dr. Presley Santillan at [facility] on 02/09/17 and referred to [facility] given abnormal labs. Past Medical History: No past medical history on file. Past Surgical History: No past surgical history on file. Medication History: No current facility-administered medications on file prior to encounter. No current outpatient prescriptions on file prior to encounter. Allergies: Allergies Allergen Reactions ??? [place] Other (See Comments) Abdominal pain ??? Cis Free Text Allergy environmental. CIS - Allergic Rhinitis ??? Gluten Other (See Comments) Abdominal pain/intestinal pain ??? Milk Containing Products Other (See Comments) Abdominal/intestinal pain ??? Peanut Other (See Comments) Abdominal pain ??? Yeast Other (See Comments) Abdominal/intestinal pain ??? Cis Free Text Allergy sugars. CIS - Sensitive Social History: Social History Social History ??? Marital status: Single Spouse name: N/A ??? Number of children: N/A ??? Years of education: N/A Occupational History ??? Not on file. Social History Main Topics ??? Smoking status: Not on file ??? Smokeless tobacco: Not on file ??? Alcohol use Not on file ??? Drug use: Not on file ??? Sexual activity: Not on file Other Topics Concern ??? Not on file Social History Narrative Family History: No family history on file. PHYSICAL EXAM: Vitals: Last value Range last 24 hrs Temperature Temp: 37.1 ??C (98.8 ??F) Temp: [37 ??C (98.6 ??F)-37.2 ??C (99 ??F)] Heart Rate Heart Rate: 58 Heart Rate: [58-104] Blood Pressure BP: 110/58 BP: (98-110)/(58-68) Respiratory Rate Resp: 16 Resp: [16-18] SpO2 SpO2: 100 % SpO2: [97 %-100 %] Intake/Output Summary (Last 24 hours) at 02/11/17 1821 Last data filed at 02/11/17 1650 Gross per 24 hour Intake 758 ml Output 1500 ml Net -742 ml Wt Readings from Last 3 Encounters: 02/10/17 59 kg (130 lb 1.1 oz) Body mass index is 24.09 kg/(m^2). Exam: Gen: AAOX3, NAD, cooperative HEENT: EOMI, Anicteric sclera, MMM Neck: supple CV: RRR, S1, S2, no murmurs Resp: CTAB Abd: Soft, tender to palpation on left side of abdomen, ND, NABS, No HSM appreciated EXT: No pedal edema Skin: No rashes, sores or ulcers Neuro: Grossly nonfocal Labs: Recent Labs 02/11/1750902/10/172236 WBC 7.3 8.4 HGB 12.4 12.9 HCT 34.7* 35.7 PLATELET 18* 17* NEUTROABS 3.69 5.10 Recent Labs 02/11/1710 02/10/172236 NA 140 140 K 3.3* 3.5 CL 103 102 CO2 23 20* BUN 6* 6* CREATININE 0.80 0.80 Recent Labs 02/11/1710 02/10/172236 CALCIUM 9.0 9.5 Recent Labs 02/10/172236 AST 15 ALT 9 ALKPHOS 50 BILITOT 0.7 Recent Labs 02/10/172236 INR 1.1 PT 14.9 PTT 30 Microbiology: Reviewed in eDH. Imaging: CT abdomen and pelvis (02/05/17) Wall thickening of descending and rectosigmoid, consistent with infectious or inflammatory colitis ?? CT abdomen and pelvis (08/12/15) Mild thickening of the wall of the descending and proximal sigmoid colon. This may be due to decompressed bowel versus nonspecific colitis. ?? ENDOSCOPY: EGD in 07/2015: details unavailable at this point ?? Colonoscopy 07/2015. ASSESSMENT/PLAN: 26 y.o. female with pmh of irritable bowel syndrome, hx of possible colitis and Raynaud's phenomenon, who was admitted 02/11/17 for rapidly progressive thrombocytopenia, with hematology considering IVIG vs steroids. Patient has evidence of nonspecific colitis on cross-sectional imaging. This may be inflammatory orinfectious. Findings of prior colonoscopy would be critical in assessing etiology and progression of colitis. Despite concern related to determining underlying cause of colitis, there are no contraindications to initiating treatment with steroids at this point. Further work-up of colitis and poor PO intake can be pursued as an outpatient, or at least following stabilization of thrombocytopenia. No antibiotics are indicated for the colitis at this point. Recommendations: -Agree with plan for IVIG and/or steroids -Continue zofran/compazine for nausea -Normal diet as tolerated, with maintenance fluids -Please obtain records of prior EGD and colonoscopy to direct next steps -Unable to perform endoscopic evaluation at this time due to severe thrombocytopenia Case discussed with Dr. Roberts. Electronically signed by: Candi Goldsmith MD Gastroenterology Fellow [facility] [place] Pager [phone] 02/11/2017 Associated attestation - Lori Roberts MD - 02/12/2017 10:28 PM EDT ATTENDING ATTESTATION: I have seen and evaluated the patient with Dr. Goldsmith. I have reviewed the fellow's history duringthe encounter and I agree with the details as written above with the following additions/modifications. My physical examination confirms the above findings. The assessment and plan were formulated in discussion with me at the time of the encounter and I agree with them as documented with the following additions/modifications. Daniela has a hx of chronic constipation that dates back to childhood. We had a nice talk with her. It is our understanding that she has previously undergone a colonoscopy for her current symptoms and prior imaging findings that did not show colitis, and that the past imaging findings seem comparable to the current findings and may be due to under-distention of the colon. Clinically it seems unlikely that this reflects a true colitis. Differential diagnosis includes Crohn's disease. We recommend symptom support at this time. We are awaiting outside records and will set her up in GI clinic todiscuss further, review her prior endo/colo reports and have her imaging re-reviewed. Agree with proceeding with treatment for ITP. Thanks for involving us in her care. Lori Roberts MD Gastroenterology Attending Pager [phone] * Plan of Care - Litzy Arciniega RN - 02/11/2017 5:49 PM EDT Problem: Patient Care Overview Goal: Plan of Care Review Outcome: Ongoing (Interventions Implemented as Appropriate) 02/11/17 0321 02/11/17 0822 Plan of Care Review Progress no change -- Coping/Psychosocial Plan Of Care Reviewed With -- patient OUTCOME EVALUATION NOTE: OUTCOME SUMMARY: At the beginning of the shift pt was reporting hip and knee pain due to bed being uncomfortable. Also pain in her L upper and lower abdominal quadrant as 3/10. Pt went for a walk and that help with hip and knee pain. Pt refused taking medication for abdominal pain. Pt also reported some nausea thismorning. Zofran given with good effect. Pt also received 40 mg of IV dexamethasone and IVIG. Pt wasable to move her bowels today. Sample sent to lab. Pt has had a fair appetite. Good output. Family at the bedside. Pt has gone for few walks around the unit with family. PLAN MOVING FORWARD: Continue monitoring pt, labs, vs Bleeding precautions Pain and nausea management Encourage ambulation INDIVIDUALIZED FALL PREVENTION INTERVENTIONS: Patient-specific fall risk factors per assessment: [current deficits]: Steady on her feet. Independent. Non skid socks when out of bed. Low risk to fall. Family at bedside. Assistance [level of assistance required for transfers and ambulation]: Independent Supervision [direct monitoring required during toileting and ADLs]: Eyes on Surveillance [continuous indirect monitoring]: Hourly rounding, masimo, call light within reach pt calls appropriately. Patient-specific fall prevention interventions for sensory deficits provided, if applicable: n/a CPG GOAL OUTCOME EVALUATION: Goal: Fall Prevention-Safe Patient Handling Outcome: Ongoing (Interventions Implemented as Appropriate) 02/11/17 0822 Cobian Fall Risk History of Falling 0 Secondary Diagnosis 0 Ambulatory Aids 0 Intravenous Therapy/Heparin/Saline Lock 20 Gait/Transferring 0 Mental Status 0 Score 20 OTHER Cobian Fall Risk Low Restraint Interventions Safety Promotion/Fall Prevention activity supervised;elopement precautions initiated;fall prevention program maintained;nonskid shoes/slippers when out of bed;safety round/check completed Positioning Body Position independent Goal: Infection Control Outcome: Ongoing (Interventions Implemented as Appropriate) 02/11/17 08 Safety Interventions Isolation Precautions standard precautions maintained Infection Prevention rest/sleep promoted;personal protective equipment utilized;environmental surveillance performed Coping Strategies Supportive Measures active listening utilized;verbalization of feelings encouraged Goal: Discharge Needs Assessment Outcome: Ongoing (Interventions Implemented as Appropriate) 02/11/17 0321 Discharge Needs Assessment Discharge Disposition still a patient Living Environment Transportation Available car;family or friend will provide Activity/Self Care Review of Systems Equipment Currently Used at Home none Goal: Interdisciplinary Rounds/Family Conf Outcome: Ongoing (Interventions Implemented as Appropriate) 02/11/17 0321 Interdisciplinary Rounds/Family Conf Participants family;nursing;patient * Med Student Consult - Remy Irby - 02/11/2017 2:06 PM EDT GASTROENTEROLOGY & HEPATOLOGY CONSULTATION PATIENT ID: Daniela Gardner is a 26 y.o. year old with a past medical history significant forirritable bowel syndrome and Raynaud's phenomenon, who was admitted 02/11/17 for progressive thrombocytopenia (Plt 18, 02/11/17) REASON FOR CONSULT: Consideration of steroids for possible ITP, concern for IBD HISTORY OF PRESENT ILLNESS: Daniela Gardner is a 26 y.o. year old with a past medical history significant for irritable bowel syndrome and Raynaud's phenomenon, who was admitted 02/11/17 for progressive thrombocytopenia (Plt 18, 02/11/17) in setting of worsening abdominal pain (7-8/10 in nature) for the past 5-6 days and severe nausea and daily vomiting for the past month. Patient has had significant constipation since childhood. She describes periods of 3-5/10 abdominalpain, with alternating constipation and non-bloody diarrhea. She first had severe abdominal pain, nausea and 20-lb weight loss in 07/2015, with associated fevers and hair loss. She had a colonoscopy at that time at [facility] by Dr. Matute; polyps were identified but other details are unavailable at this point. A CT revealed mild thickening of the wall of the descending and proximal sigmoid colon, consistent decompressed bowel versus colitis. Prior naturopathic testing showed allergy to gluten, dairy, yeast/fungi. She was tested for celiac disease by serology and EGD in 07/2015, with no diagnosis reached - however testing was done on gluten-free diet. For the past month, she has had severe nausea and daily vomiting, which she attempts to manage withphenergan/zofran (though patient dislikes phenergan). She has had difficulty with PO intake, thoughshe has been able to maintain her weight. She has also had worsening abdominal pain, particularly over the past 5- 6 days. Her current pain is constant 7-8/10, initiating in the epigastric area with spread to the LUQ and LLQ. She characterizes the pain as intense pressure, with stabbing pain and associated dyspnea at times. Like the abdominal pain, the vomiting has worsened over the past 5 days. Denies any blood in stool or vomit. She was recently treated in the ED for pain and nausea, and had a CT scan on 02/05/17 which was consistent with infectious or inflammatory colitis. She was seen by Dr. Presley Santillan at [facility] on 02/09/17 and referred to [facility] given abnormal labs. Workup so far has been negative for DIC, B12 deficiency, folate deficiency, , HIV. The progressive thrombocytopenia in the absence of splenomegaly raises concern for ITP. ROS: Constitutional: no weight loss HEENT: no visual changes, no URI symptoms Cardio: no chest pain Resp: no cough, no SOB, no PERRY or orthopnea Hem/Lymph: bleeding of gums with brushing of teeth, heavy menstrual periods GI: see HPI : no dysuria Integumentary: no new rashes Musculoskeletal: no new joint pains, history of joint pain Neuro: no new headaches, numbness or weakness ACTIVE GI PROBLEM LIST: -Weight loss, nausea/vomiting, abdominal pain -Colitis on abdominal CT scan PAST MEDICAL/SURGICAL HISTORY: Raynaud's phenomenon Irritable bowel syndrome MEDICATIONS ??? magnesium sulfate 2 g Intravenous Once ??? potassium chloride 40 mEq Oral Once ??? sodium chloride 0.9 % 5 mL Intravenous BID acetaminophen, sodium chloride 0.9 %, lidocaine, ondansetron OR ondansetron, prochlorperazine OR prochlorperazine ALLERGIES Allergies Allergen Reactions ??? [place] Other (See Comments) Abdominal pain ??? Cis Free Text Allergy environmental. CIS - Allergic Rhinitis ??? Gluten Other (See Comments) Abdominal pain/intestinal pain ??? Milk Containing Products Other (See Comments) Abdominal/intestinal pain ??? Peanut Other (See Comments) Abdominal pain ??? Yeast Other (See Comments) Abdominal/intestinal pain ??? Cis Free Text Allergy sugars. 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 [employer] Tobacco use: denies Alcohol: 1 drink per month Denies IVDU, no other recreational drug use FAMILY HISTORY History of colon cancer (maternal great grandmother and paternal grandfather) History of polyps (mother) PHYSICAL EXAM Last value Range last 24 hrs Temperature Temp: 37.1 ??C (98.8 ??F) Temp: [37 ??C (98.6 ??F)-37.2 ??C (99 ??F)] Heart Rate Heart Rate: 58 Heart Rate: [58-104] Blood Pressure BP: 110/58 BP: (98-110)/(58) Respiratory Rate Resp: 16 Resp: [16-18] SpO2 SpO2: 100 % SpO2: [97 %-100 %] GENERAL: Pleasant 26 y/o female, sitting up in bed with mother at bedside HENT: AT/NC, MMM Sclerae anicteric NECK: Supple, no adenopathy CHEST: CTA with good air entery CARDIAC: RRR: Normal S1, S2, no murmurs. ABDOMEN: Soft, non distended abdomen, diffuse L-sided tenderness, normoactive BS. No HSM. No fluid wave RECTAL: deferred Skin: No jaundice, no caput medusa, no palmar erythema EXT: Warm, well-perfused NEURO: moves all extremities LABS: Recent Labs 02/11/17 0510 02/10/172236 WBC 7.3 8.4 HGB 12.4 12.9 HCT 34.7* 35.7 PLATELET 18* 17* Recent Labs 02/11/17 0510 02/10/17 223 NA 140 140 K 3.3* 3.5 CL 103 102 CO2 23 20* BUN 6* 6* CREATININE 0.80 0.80 Recent Labs 02/10/172236 ALBUMIN 4.3 AST 15 ALT 9 ALKPHOS 50 BILITOT 0.7 Recent Labs 02/10/172236 INR 1.1 IMAGING: CT abdomen and pelvis (02/05/17) Wall thickening of descending and rectosigmoid, consistent with infectious or inflammatory colitis CT abdomen and pelvis (08/12/15) Mild thickening of the wall of the descending and proximal sigmoid colon. This may be due to decompressed bowel versus nonspecific colitis. ENDOSCOPY: EGD in 07/2015: details unavailable at this point Colonoscopy 07/2015 IMPRESSION: Daniela Gardner is a 26 y.o. year old with a past medical history significant for irritable bowel syndrome and Raynaud's phenomenon, who was admitted 02/11/17 for rapidly progressive thrombocytopenia (Plt 18, 02/11/17) in setting of worsening abdominal pain (7-8/10 in nature) for the past 5-6 days and severe nausea and daily vomiting for the past month. The work-up by the primary team raises concern for ITP, and we were consulted given pending plan toinitiate IVIG and steroids in setting of colitis and increased vomiting. Patient has evidence of nonspecific colitis on cross-sectional imaging. This may be inflammatory orinfectious. Findings of prior colonoscopy would be critical in assessing etiology and progression of colitis. Despite concern related to determining underlying cause of colitis, there are no contraindications to initiating treatment with steroids at this point. Further work-up of colitis and poor PO intake can be pursued as an outpatient, or at least secondary to stabilization of thrombocytopenia. No antibiotics are indicated for the colitis at this point. Patient has increased difficulty with PO intake over the past 5-6 days.This is thought to be secondary to nausea, as patient does not display evidence of obstruction on exam or imaging. Patient has had some benefit to phenergan, though patient expresses concern of side effect. We agree with zofran/compazine while inpatient, and an alternative anti-histamine can be used upon discharge. Patient does not appear to require a modified diet or nutritional support beyond IV fluids at this point; we will continue to follow the patient's nutritional status. RECOMMENDATIONS -Agree with plan for IVIG and steroids -Continue zofran/compazine for nausea -Normal diet as tolerated, with maintenance fluids -Review prior EGD and colonoscopy reports to direct next steps The plan as outlined above was discussed with Dr. Roberts. Remy Irby * Initial Assessments - Diamond Morelos RN - 02/11/2017 11:46 AM EDT Office of Care Management Initial Assessment Diamond Morelos RN reviewed record and discussed patient with Care Team. Source of Information: Patient and medical record Introduced self/reviewed role; services accepted. Reason for Hospitalization: Acute ITP No past medical history on file. Hospitalizations Within the Past 30 Days: None Anticipated Length Of Stay (If known): 1-2 days Current Decision-Making Capacity: Self, A&Ox3, Full Capacity Advance Care Planning: Full Code, No. Discussed with patient importance and process for doing Advance Directives. Provided copy(ies) of [place] [facility] Advance Directives Taking Steps booklet with forms. 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 3 steps to enter telma's home and lives on one level. [address] [facility] [id number] Social & Family Supports/Community Resources: Family Extended Emergency Contact Information Primary Emergency Contact: Yousuf Noyola Address: [address] [place] [id number] [facility] Mobile Relation: Friend Secondary Emergency Contact: Justus Gardner Address: [address] [place] [id number] [facility] Mobile Relation: Mother Behavioral Health History: n/a Substance Use/Abuse: n/a Other Pertinent/Service Specific Information: n/a Health/Prescription Coverage: Primary Insurance: [employer] OOS Payor: [employer] [facility] OOS / Plan: [facility] OOS PPO / Product Type: *No Product type* / Secondary Insurance: [employer] [facility] Prescription Coverage: / Preferred Pharmacy: [phone] [address] Other: n/a Primary Care Provider: Presley Santillan MD [phone] Patient/Caregiver Goals of Treatment: Figure out whats going on and treat Potential Needs for Transition of Care: Rehab/SNF: na Home Health: patient declined DME: na Dialysis: na Community Resources: n/a Transportation: Patients mother or fiancee will drive patient home via car Other: n/a Anticipated Barriers to Discharge/Special Considerations: none Plan: Patient will go home with support of family A member of the Care Management team will continue to monitor progress, follow for continuity of care and assist with transition of care planning. Diamond Morelos RN Pager: [phone] * Plan of Care - Naida Patterson RN - 02/11/2017 3:46 AM EDT Problem: Patient Care Overview Goal: Plan of Care Review Outcome: Ongoing (Interventions Implemented as Appropriate) 02/10/17 2100 02/11/17 0321 Plan of Care Review Progress -- no change Coping/Psychosocial Plan Of Care Reviewed With patient;mother;father -- OUTCOME EVALUATION NOTE: OUTCOME SUMMARY: Daniela arrived with her family on the unit just after shift change. Oriented to unit, room, and call-light system. PIV placed and IVF started. SCD's placed. Parents at bedside throughout the night.No untoward events. PLAN MOVING FORWARD: Pain control. Monitor VS and labs and for signs of bleeding. Continue IVF. Continue workup; treatment plan pending. INDIVIDUALIZED FALL PREVENTION INTERVENTIONS: Patient-specific fall risk factors per assessment: [current deficits]: Unfamiliar environment and tight quarters. Patient is young and completely independent at baseline. Has SCDs and IVF, which are a tripping hazard. Mother is a nurse and has stayed at the bedside to assist. Assistance [level of assistance required for transfers and ambulation]: SBA first 24 hours, otherwise independent. Supervision [direct monitoring required during toileting and ADLs]: Eyes-on. Surveillance [continuous indirect monitoring]: Purposeful rounding. Call-light within reach and used appropriately. Room near nurses' station. Family at bedside throughout the night. Semi-private room. Patient-specific fall prevention interventions for sensory deficits provided, if applicable: N/A CPG GOAL OUTCOME EVALUATION: Goal: Fall Prevention-Safe Patient Handling Outcome: Ongoing (Interventions Implemented as Appropriate) 02/10/17 2100 02/11/17 0055 Cobian Fall Risk History of Falling -- 0 Secondary Diagnosis -- 0 Ambulatory Aids -- 0 Intravenous Therapy/Heparin/Saline Lock -- 20 Gait/Transferring -- 0 Mental Status -- 0 Score -- 20 OTHER Cobian Fall Risk -- Low Restraint Interventions Safety Promotion/Fall Prevention activity supervised;fall prevention program maintained;nonskid shoes/slippers when out of bed;safety round/check completed -- Positioning Body Position independent -- Goal: Infection Control Outcome: Ongoing (Interventions Implemented as Appropriate) 02/10/17 2100 Safety Interventions Isolation Precautions standard precautions maintained Infection Prevention environmental surveillance performed;rest/sleep promoted Coping Strategies Supportive Measures active listening utilized;verbalization of feelings encouraged Goal: Discharge Needs Assessment Outcome: Ongoing (Interventions Implemented as Appropriate) 02/11/17 0321 Discharge Needs Assessment Discharge Disposition still a patient Living Environment Transportation Available car;family or friend will provide Activity/Self Care Review of Systems Equipment Currently Used at Home none Goal: Interdisciplinary Rounds/Family Conf Outcome: Ongoing (Interventions Implemented as Appropriate) 02/11/17 0321 Interdisciplinary Rounds/Family Conf Participants family;nursing;patient documented in this encounter Plan of Treatment Not on file documented as of this encounter Procedures Procedure Name Priority Date/Time Associated Diagnosis Comments HEMOGRAM Routine 02/13/2017 3:28 AM EDT DIFFERENTIAL, AUTOMATED Routine 02/13/2017 3:28 AM EDT HEPATITIS B CORE ANTIBODY, IGM Routine 02/13/2017 3:28 AM EDT CBC (WITH DIFF) Routine 02/13/2017 3:28 AM EDT MAGNESIUM Routine 02/13/2017 3:28 AM EDT BASIC METABOLIC PANEL Routine 02/13/2017 3:28 AM EDT HEMOGRAM Routine 02/12/2017 3:08 AM EDT DIFFERENTIAL, AUTOMATED Routine 02/12/2017 3:08 AM EDT CBC (WITH DIFF) Routine 02/12/2017 3:08 AM EDT MAGNESIUM Routine 02/12/2017 3:08 AM EDT BASIC METABOLIC PANEL Routine 02/12/2017 3:08 AM EDT HELICOBACTER PYLORI ANTIGEN STOOL Routine 02/11/2017 4:03 PM EDT HEPATITIS C ANTIBODY Routine 02/11/2017 1:13 PM EDT HEPATITIS B SURFACE ANTIBODY Routine 02/11/2017 1:13 PM EDT IGA STAT 02/11/2017 1:13 PM EDT IGG Routine 02/11/2017 1:13 PM EDT EKG 12-LEAD Routine 02/11/2017 12:50 PM EDT Acute ITP HEMOGRAM Routine 02/11/2017 5:10 AM EDT DIFFERENTIAL, AUTOMATED Routine 02/11/2017 5:10 AM EDT CBC (WITH DIFF) Routine 02/11/2017 5:10 AM EDT BASIC METABOLIC PANEL Routine 02/11/2017 5:10 AM EDT PATHOLOGY SLIDE REVIEW Routine 7 10:37 PM EDT PATHOLOGY SLIDE REVIEW Routine 7 10:37 PM EDT SCAN, PERIPHERAL BLOOD Routine 7 10:37 PM EDT DNA ANTIBODY (DOUBLE-STRANDED) Routine 02/10/2017 10:37 PM EDT HEMOGRAM Routine 02/10/2017 10:37 PM EDT DIFFERENTIAL, AUTOMATED Routine 02/10/2017 10:37 PM EDT D-DIMER, QUANTITATIVE Routine 02/10/2017 10:37 PM EDT MARK TITER Routine 02/10/2017 10:37 PM EDT HIV SCREEN, 4TH GENERATION ([facility]/APD/[facility]H) Routine 02/10/2017 10:37 PM EDT APTT Routine 02/10/2017 10:37 PM EDT THROMBIN TIME Routine 02/10/2017 10:37 PM EDT PROTHROMBIN TIME Routine 02/10/2017 10:3 7 PM EDT FIBRINOGEN Routine 02/10/2017 10:37 PM EDT CBC (WITH DIFF) Routine 02/10/2017 10:37 PM EDT MARK ANTIBODY SCREEN Routine 02/10/2017 1 0:37 PM EDT BETA HCG, QUANTITATIVE Routine 7 10:37 PM EDT FOLATE, SERUM Routine 02/10/2017 10:37 PM EDT VITAMIN B12 Routine 02/10/2017 10:37 PM EDT COMPREHENSIVE METABOLIC PANEL Routine 02/10/2017 10:37 PM EDT documented in this encounter Results * (ABNORMAL) Differential, Automated (02/13/2017 3:28 AM EDT) Neutrophil % 84.4 % [facility] Neutrophil Absolute 8.60(H) 1.70 - 6.10 x10(3)/mc L [facility] Lymph % 8.0 % [facility] Lymphocytes Abs 0.8(L) 0.9 - 3.2 x10(3)/mc L [facility] Monocyte % 6.7 % [facility] Monocyte Abs 0.7 0.3 - 0.9 x10(3)/mc L [facility] Eos % 0.0 % [facility] Eosinophils Abs 0.0 0.0 - 0.4 x10(3)/mc L [facility] Basophil % 0.1 % [facility] Baso Absolute 0.0 0.0 - 0.1 x10(3)/mc L [facility] Immature Gran % 0.80 % [facility] Comment: Immature granulocytes(IG's)percentage and absolute count will include metamyelocytes, myelocytes, and promyelocytes. Blood smears from CBCs yielding IG's will be scanned manually for concordance. If this scan disagrees with the automated IG or if promyelocytes are noted, a manual differential will be performed. Immature Gran Absolute 0.08(H) 0.00 - 0.04 x10(3)/[facility] Blood specimen (specimen) 02/13/2017 3:28 AM EDT 02/13/2017 4:00 AM EDT Narrative Resulting Agency Comment Spec In Lab Hemal Goodrich Jr., MD HEMATOLOGY ORDERABLE S [facility] [place] [address] * (ABNORMAL) Hemogram (02/13/2017 3:28 AM EDT) White Blood Cell 10.2(H) 4.0 - 9.5 x10(3)/[facility] Red Blood Cell 3.53(L) 4.00 - 5.21 x10(6)/[facility] Hemoglobin 11.5(L) 11.7 - 15.5 gm/dL [facility] Hematocrit 31.8(L) 35.7 - 45.8 % [facility] Mean Cell Volume 90.1 82.6 - 94.4 fL [facility] Mean Cell Hemoglobin 32.6(H) 27.1 - 32.0 pg [facility] Mean Cell Hemoglobin Concentration 36.2(H) 31.7 - 35.0 gm/dL [facility] Platelet 86(L) 145 - 357 x10(3)/[facility] RDW Standard Deviation 37.8 37.0 - 46.0 fL [facility] RDW coefficient of variation 11.9 11.5 - 14.1 % [facility] Mean Platelet Volume 11.1 7.6 - 12.9 fL [facility] NRBC% auto 0.0 % [facility] NRBC Absolute 0.000 0.000 - 0.000 x10(3)/mc L [facility] Blood specimen (specimen) 02/13/2017 3:28 AM EDT 02/13/2017 4:00 AM EDT Narrative Resulting Agency Comment Spec In Lab Hemal Goodrich Jr., MD HEMATOLOGY ORDERABLE S Performing Organization Address City/[facility]/ZIP Co de Phone Number [facility] [place] [address] * Magnesium (02/13/2017 3:28 AM EDT) Pathologist [facility] Magnesium 0.84 0.69 - 1.07 mmol/L [facility] Blood specimen (specimen) 02/13/2017 3:28 AM EDT 02/13/2017 4:00 AM EDT Narrative Resulting Agency Comment Spec In Lab Hemal Goodrich Jr., MD CHEMISTRY ORDERABLES Performing Organization Address [facility] Co de Phone Number [facility] [place] [address] * Hepatitis B Core Antibody, IgM (02/13/2017 3:28 AM EDT) Pathologist [facility] Hepatitis B Core IgM Negative Negative [facility] Blood specimen (specimen) 02/13/2017 3:28 AM EDT 02/13/2017 4:00 AM EDT Narrative Resulting Agency Comment Spec In Lab Hemal Goodrich Jr., MD CHEMISTRY ORDERABLES Performing Organization Address [facility] Co de Phone Number [facility] [place] [address] * (ABNORMAL) Basic Metabolic Panel (non-fasting) (02/13/2017 3:28 AM EDT) Pathologist [facility] Glucose 149 65 - 199 mg/dL [facility] Comment:Diabetes: >=200 mg/d L plus symptoms Blood Urea Nitrogen 9 8 - 18 mg/dL [facility] Creatinine 0.82 0.70 - 1.20 mg/dL [facility] Comment: Please note that the pediatric reference intervals supplied above were not validated at [facility]. Results from pediatric patients should be interpreted in conjunction to the patient's age, height and muscle mass. Sodium 136 135 - 145 mmol/L [facility] Potassium 3.8 3.5 - 5.0 mmol/L [facility] Comment: Please note: ??Patients with WBC >100,000 may have falsely elevated Potassium levels. ??For accurate Potassium quantification in these patients send serum separator tube (gold top) for subsequent determinations. ??Contact the Clinical Chemistry Laboratory if there are any questions. Chloride 101 98 - 107 mmol/L [facility] Carbon Dioxide 19(L) 22 - 31 mmol/L [facility] Anion Gap 16(H) 5 - 15 mmol/L [facility] Calcium 8.4(L) 8.5 - 10.5 mg/dL [facility] Est Glomerular Filtration Rate >60 >=60 [facility] Comment: This estimated GFR (eGFR) [...] the following links into your internet browser. [email or web address] Blood specimen (specimen) 02/13/2017 3:28 AM EDT 02/13/2017 4:00 AM EDT Narrative Resulting Agency Comment Spec In Lab Hemal Goodrich Jr., [place] [address] * (ABNORMAL) Differential, Automated (02/12/2017 3:08 AM EDT) [facility] Neutrophil % 89.5 % [facility] Neutrophil Absolute 4.15 1.70 - 6.10 x10(3)/ L [facility] Lymph % 9.5 % [facility] Lymphocytes Abs 0.4(L) 0.9 - 3.2 x10(3)/ L [facility] Monocyte % 0.6 % [facility] Monocyte Abs 0.0(L) 0.3 - 0.9 x10(3)/ L [facility] Eos % 0.0 % [facility] Eosinophils Abs 0.0 0.0 - 0.4 x10(3)/[facility] Basophil % 0.0 % [facility] Baso Absolute 0.0 0.0 - 0.1 x10(3)/ L [facility] Immature Gran % 0.40 % [facility] Comment: Immature granulocytes(IG's)percentage and absolute count will include metamyelocytes, myelocytes, and promyelocytes. Blood smears from CBCs yielding IG's will be scanned manually for concordance. If this scan disagrees with the automated IG or if promyelocytes are noted, a manual differential will be performed. Immature Gran Absolute 0.02 0.00 - 0.04 x10(3)/ L [facility] Blood specimen (specimen) 02/12/2017 3:08 AM EDT 02/12/2017 3:23 AM EDT Narrative Resulting Agency Comment Spec In Lab Hemal Goodrich Jr., MD HEMATOLOGY ORDERABLE S [facility] [place] [address] * (ABNORMAL) Hemogram (02/12/2017 3:08 AM EDT) White Blood Cell 4.6 4.0 - 9.5 x10(3)/ L [facility] Red Blood Cell 4.08 4.00 - 5.21 x10(6)/ L [facility] Hemoglobin 12.8 11.7 - 15.5 gm/dL [facility] Hematocrit 35.2(L) 35.7 - 45.8 % [facility] Mean Cell Volume 86.3 82.6 - 94.4 fL [facility] Mean Cell Hemoglobin 31.4 27.1 - 32.0 pg [facility] Mean Cell Hemoglobin Concentration 36.4(H) 31.7 - 35.0 gm/dL [facility] Platelet 33(L) 145 - 357 x10(3)/[facility] RDW Standard Deviation 35.2(L) 37.0 - 46.0 fL [facility] RDW coefficient of variation 11.4(L) 11.5 - 14.1 % [facility] Mean Platelet Volume 11.8 7.6 - 12.9 fL [facility] NRBC% auto 0.0 % [facility] NRBC Absolute 0.000 0.000 - 0.000 x10(3)/ L [facility] Blood specimen (specimen) 02/12/2017 3:08 AM EDT 02/12/2017 3:23 AM EDT Narrative Resulting Agency Comment Spec In Lab Hemal Goodrich Jr., MD HEMATOLOGY ORDERABLE S [facility] [address] * Magnesium (02/12/2017 3:08 AM EDT) Magnesium 0.96 0.69 - 1.07 mmol/L [facility] Blood specimen (specimen) 02/12/2017 3:08 AM EDT 02/12/2017 3:23 AM EDT Narrative Resulting Agency Comment Spec In Lab Hemal Goodrich Jr., MD CHEMISTRY ORDERABLES [facility] [place] [address] * (ABNORMAL) Basic Metabolic Panel (non-fasting) (02/12/2017 3:08 AM EDT) Glucose 188 65 - 199 mg/dL [facility] Comment:Diabetes: >=200 mg/d L plus symptoms Blood Urea Nitrogen 8 8 - 18 mg/dL [facility] Creatinine 0.78 0.70 - 1.20 mg/dL [facility] Comment: Please note that the pediatric reference intervals supplied above were not validated at [facility]. Results from pediatric patients should be interpreted in conjunction to the patient's age, height and muscle mass. Sodium 136 135 - 145 mmol/L [facility] Potassium 4.5 3.5 - 5.0 mmol/L [facility] Comment: result rechecked-RR Please note: ??Patients with WBC >100,000 may have falsely elevated Potassium levels. ??For accurate Potassium quantification in these patients send serum separator tube (gold top) for subsequent determinations. ??Contact the Clinical Chemistry Laboratory if there are any questions. Chloride 104 98 - 107 mmol/L [facility] Carbon Dioxide 18(L) 22 - 31 mmol/L [facility] Anion Gap 14 5 - 15 mmol/L [facility] Calcium 9.1 8.5 - 10.5 mg/dL [facility] Est Glomerular Filtration Rate >60 >=60 [facility] Comment: This estimated GFR (eGFR) [...] the following links into your internet browser. [email or web address] Blood specimen (specimen) 02/12/2017 3:08 AM EDT 02/12/2017 3:23 AM EDT Narrative Resulting Agency Comment Spec In Lab Hemal Goodrich Jr., MD CHEMISTRY ORDERABLES Performing Organization Address [facility] Co de Phone Number [facility] [place] [address] * Helicobacter pylori Antigen Stool (02/11/2017 4:03 PM EDT) H pylori Ag Negative Negative [facility] Comment:Test performed by soni fung. H pylori Ag Comment See Comment [facility] Comment: Antimicrobials, proton pump inhibitors and bismuth preparations are known to suppress H pylori, and ingestion of these prior to H. pylori testing may cause false negative results. Stool specimen (specimen) 02/11/2017 4:03 PM EDT 02/12/2017 2:20 PM EDT Narrative Resulting Agency Comment Spec In Lab Hemal Goodrich Jr., MD MICROBIOLOGY - GENER AL ORDERABLES Performing Organization Address [facility] Co de Phone Number [facility] [address] * IgG (02/11/2017 1:13 PM EDT) Immunoglobulin G 870 700 - 1,600 mg/dL [facility] Blood specimen (specimen) 02/11/2017 1:13 PM EDT 02/11/2017 1:32 PM EDT Narrative Resulting Agency Comment Spec In Lab Hemal Goodrich Jr., MD CHEMISTRY ORDERABLES Performing Organization Address [facility] Co de Phone Number [facility] [address] * IgA (02/11/2017 1:13 PM EDT) IgA 189 70 - 400 mg/dL [facility] Blood specimen (specimen) 02/11/2017 1:13 PM EDT 02/11/2017 1:32 PM EDT Narrative Resulting Agency Comment Spec In Lab Hemal Goodrich Jr., MD CHEMISTRY ORDERABLES Performing Organization Address City/[facility]/ZIP Co de Phone Number [facility] [place] [address] * Hepatitis C Antibody (02/11/2017 1:13 PM EDT) Hepatitis C Antibody Negative Negative [facility] Comment: An updated Hepatitis C Ab assay reagent was implemented on 09/10/16. Please contact Dr. Alvarez at [phone] with any questions or concerns. Blood specimen (specimen) 02/11/2017 1:13 PM EDT 02/11/2017 1:32 PM EDT Narrative Resulting Agency Comment Spec In Lab Hemal Goodrich Jr., MD CHEMISTRY ORDERABLES Performing Organization Address [facility] Co de Phone Number [facility] [address] * Hepatitis B Surface Antibody (02/11/2017 1:13 PM EDT) Hepatitis B Surface Antibody, Quantitative >1,000.0 IU/L [facility] Comment: HepB Surface Ab Quant: Unvaccinated: < 8.5 IU/L Vaccinated: > 11.5 IU/L Hepatitis B Surface Antibody Positive [facility] Comment: Patient is considered to be immune to HBV infection. Expected Results: Vaccinated: Positive Unvaccinated: Negative Blood specimen (specimen) 02/11/2017 1:13 PM EDT 02/11/2017 1:32 PM EDT Narrative Resulting Agency Comment Spec In Lab Hemal Goodrich Jr., MD CHEMISTRY ORDERABLES Performing Organization Address City/[facility] Co de Phone Number [facility] [place] [address] * EKG 12 Lead (02/11/2017 12:50 PM EDT) Ventricular rate 58 BPM MUSE SYSTEM Atrial Rate 58 BPM MUSE SYSTEM P-R Interval 130 ms MUSE SYSTEM QRS Duration 96 ms MUSE SYSTEM Q-T Interval 418 ms MUSE SYSTEM QTC Calculated (Bezet) 410 ms MUSE SYSTEM Calculated P [place] 62 degrees MUSE SYSTEM Calculated R [place] 64 degrees MUSE SYSTEM Calculated T [place] 33 degrees MUSE SYSTEM INTERPRETATION Sinus bradycardia with sinus arrhythmia Otherwise normal ECG No previous ECGs available Confirmed by MD Roberto, Jeff Lezama ([id number]) on 02/11/2017 2:16:18 PM MUSE SYSTEM 02/11/2017 12:5 0 PM EDT 02/11/2017 2:16 PM EDT Hemal Goodrich Jr., MD ECG ORDERABLES MUSE SYSTEM * Differential, Automated (02/11/2017 5:10 AM EDT) Neutrophil % 50.7 % [facility] Neutrophil Absolute 3.69 1.70 - 6.10 x10(3)/[facility] Lymph % 37.5 % [facility] Lymphocytes Abs 2.7 0.9 - 3.2 x10(3)/[facility] Monocyte % 7.7 % [facility] Monocyte Abs 0.6 0.3 - 0.9 x10(3)/[facility] Eos % 3.4 % [facility] Eosinophils Abs 0.2 0.0 - 0.4 x10(3)/[facility] Basophil % 0.4 % [facility] Baso Absolute 0.0 0.0 - 0.1 x10(3)/[facility] Immature Gran % 0.30 % [facility] Comment: Immature granulocytes(IG's)percentage and absolute count will include metamyelocytes, myelocytes, and promyelocytes. Blood smears from CBCs yielding IG's will be scanned manually for concordance. If this scan disagrees with the automated IG or if promyelocytes are noted, a manual differential will be performed. Immature Gran Absolute 0.02 0.00 - 0.04 x10(3)/mcL [facility] Blood specimen (specimen) 02/11/2017 5:10 AM EDT 02/11/2017 5:23 AM EDT Narrative Resulting Agency Comment Spec In Lab Hemal Goodrich Jr., MD HEMATOLOGY ORDERABLE S [facility] [address] * (ABNORMAL) Hemogram (02/11/2017 5:10 AM EDT) White Blood Cell 7.3 4.0 - 9.5 x10(3)/ L [facility] Red Blood Cell 4.03 4.00 - 5.21 x10(6)/[facility] Hemoglobin 12.4 11.7 - 15.5 gm/dL [facility] Hematocrit 34.7(L) 35.7 - 45.8 % [facility] Mean Cell Volume 86.1 82.6 - 94.4 fL [facility] Mean Cell Hemoglobin 30.8 27.1 - 32.0 pg [facility] Mean Cell Hemoglobin Concentration 35.7(H) 31.7 - 35.0 gm/dL [facility] Platelet 18(Critic al) 145 - 357 x10(3)/[facility] RDW Standard Deviation 36.1(L) 37.0 - 46.0 fL [facility] RDW coefficient of variation 11.5 11.5 - 14.1 % [facility] Mean Platelet Volume 13.3(H) 7.6 - 12.9 fL [facility] NRBC% auto 0.0 % [facility] NRBC Absolute 0.000 0.000 - 0.000 x10(3)/ L [facility] Blood specimen (specimen) 02/11/2017 5:10 AM EDT 02/11/2017 5:23 AM EDT Narrative Resulting Agency Comment Spec In Lab Hemal Goodrich Jr., MD HEMATOLOGY ORDERABLE S [facility] [place] [address] * (ABNORMAL) Basic Metabolic Panel (non-fasting) (02/11/2017 5:10 AM EDT) Glucose 103 65 - 199 mg/dL [facility] Comment:Diabetes: >=200 mg/d L plus symptoms Blood Urea Nitrogen 6(L) 8 - 18 mg/dL [facility] Creatinine 0.80 0.70 - 1.20 mg/dL [facility] Comment: Please note that the pediatric reference intervals supplied above were not validated at [facility]. Results from pediatric patients should be interpreted in conjunction to the patient's age, height and muscle mass. Sodium 140 135 - 145 mmol/L [facility] Potassium 3.3(L) 3.5 - 5.0 mmol/L [facility] Comment: Please note: ??Patients with WBC >100,000 may have falsely elevated Potassium levels. ??For accurate Potassium quantification in these patients send serum separator tube (gold top) for subsequent determinations. ??Contact the Clinical Chemistry Laboratory if there are any questions. Chloride 103 98 - 107 mmol/L [facility] Carbon Dioxide 23 22 - 31 mmol/L [facility] Anion Gap 14 5 - 15 mmol/L [facility] Calcium 9.0 8.5 - 10.5 mg/dL [facility] Est Glomerular Filtration Rate >60 >=60 [facility] Comment: This estimated GFR (eGFR) [...] the following links into your internet browser. [email or web address] Blood specimen (specimen) 02/11/2017 5:10 AM EDT 02/11/2017 5:23 AM EDT Narrative Resulting Agency Comment Spec In Lab Hemal Goodrich Jr., MD CHEMISTRY ORDERABLES Performing Organization Address [facility] Co de Phone Number [facility] [place] [address] * MARK Titer (02/10/2017 10:37 PM EDT) MARK Titer positive [facility] Comment: 1:160 Titer seen with Homogeneous/Diffuse pattern. ??Is suggestive of autoantibodies to nDNA, histones, or DNA-associated proteins. Blood specimen (specimen) 02/10/2017 10:37 PM EDT 02/11/2017 7:10 AM EDT Narrative Resulting Agency Comment Spec In Lab Hemal Goodrich Jr., MD IMMUNOLOGY ORDERABLE S Performing Organization Address [facility] [place] [address] * DNA Antibody (Double-Stranded) (02/10/2017 10:37 PM EDT) DNA Ab (DS) Neg Neg [facility] Blood specimen (specimen) 02/10/2017 10:37 PM EDT 02/11/2017 7:10 AM EDT Narrative Resulting Agency Comment Spec In Lab Hemal Goodrich Jr., MD LAB SEND OUT ORDERAB LES Performing Organization Address [facility] de Phone Number [facility] [place] [address] * Smear Review Report (02/10/2017 10:37 PM EDT) Smear Review Report [id number] ? Location: 1WST; 0118; B The signing pathologist has (i) examined the relevant preparation(s) for the specimen(s) and (ii) rendered or confirmed the diagnosis(es). . ? Smear Review DIAGNOSIS PERIPHERAL BLOOD, SMEAR: Marked thrombocytopenia in an otherwise unremarkable peripheral smear (see discussion) Electronically signed by: ??Davion Rene MD Verified: ??02/11/2017 ?Hematopathologist DISCUSSION The peripheral smear shows marked thrombocytopenia with normal platelet morphology and no other cytologic abnormalities. While in the correct clinical setting the findings may be compatible with ITP, this is a diagnosis of exclusion and other causes of thrombocytopenia such as mediciation effect or various infections should be excluded. Evaluation of the immature platelet fraction (IPF) may be of diagnostic utility. Clinical correlation is recommended. ADDITIONAL STUDIES WBC 8.35x10 3/uL, RBC 4.16x10 6/uL, HGB 12.9g/dL, HCT 35.7%, MCV 85.8fL, MCHC 36.1g/dL, RDW-CV 11.5%, PLT 17x10 ?? 3/uL The peripheral smear shows normochromic normocytic erythrocytes without anemia or polycythemia. Anisopoikilocytosis and polychromasia are not increased, and no increase in shift cells is appreciated. There is a marked thrombocytopenia, but the few circulating platelets are morphologically acceptable. The white cell count is normal, and all relative and absolute leukocyte counts are within reference limits. Leukocyte morphology is generally unremarkable, and no significant granulocytic left-shift is appreciated. 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 A smear review was requested for evaluation of cytopenia. [facility] 02/10/2017 10:3 7 PM EDT Lis Ackerman MD HEMATOLOGY ORDERABLE S [facility] [place] [address] * Scan, Peripheral Blood (02/10/2017 10:37 PM EDT) Plat estimate Decreased [facility] RBC Morphology Normal [facility] Blood specimen (specimen) 02/10/2017 10:37 PM EDT 02/10/2017 10:42 PM EDT Narrative Resulting Agency Comment Spec In Lab Hemal Goodrich Jr., MD HEMATOLOGY ORDERABLE S Performing Organization Address City/[facility]/ZIP Co de Phone Number [facility] [place] [address] * Differential, Automated (02/10/2017 10:37 PM EDT) [facility] Neutrophil % 61.0 % [facility] Neutrophil Absolute 5.10 1.70 - 6.10 x10(3)/[facility] Lymph % 30.1 % [facility] Lymphocytes Abs 2.5 0.9 - 3.2 x10(3)/[facility] Monocyte % 6.5 % [facility] Monocyte Abs 0.5 0.3 - 0.9 x10(3)/[facility] Eos % 1.9 % [facility] Eosinophils Abs 0.2 0.0 - 0.4 x10(3)/[facility] Basophil % 0.4 % [facility] Baso Absolute 0.0 0.0 - 0.1 x10(3)/[facility] Immature Gran % 0.10 % [facility] Comment: Immature granulocytes(IG's)percentage and absolute count will include metamyelocytes, myelocytes, and promyelocytes. Blood smears from CBCs yielding IG's will be scanned manually for concordance. If this scan disagrees with the automated IG or if promyelocytes are noted, a manual differential will be performed. Immature Gran Absolute 0.01 0.00 - 0.04 x10(3)/[facility] Blood specimen (specimen) 02/10/2017 10:37 PM EDT 02/10/2017 10:42 PM EDT Narrative Resulting Agency Comment Spec In Lab Hemal Goodrich Jr., MD HEMATOLOGY ORDERABLE S [facility] [place] [address] * (ABNORMAL) Hemogram (02/10/2017 10:37 PM EDT) White Blood Cell 8.4 4.0 - 9.5 x10(3)/mc L [facility] Red Blood Cell 4.16 4.00 - 5.21 x10(6)/[facility] Hemoglobin 12.9 11.7 - 15.5 gm/dL [facility] Hematocrit 35.7 35.7 - 45.8 % [facility] Mean Cell Volume 85.8 82.6 - 94.4 fL [facility] Mean Cell Hemoglobin 31.0 27.1 - 32.0 pg [facility] Mean Cell Hemoglobin Concentration 36.1(H) 31.7 - 35.0 gm/dL [facility] Platelet 17(Critic al) 145 - 357 x10(3)/[facility] RDW Standard Deviation 35.6(L) 37.0 - 46.0 fL [facility] RDW coefficient of variation 11.5 11.5 - 14.1 % [facility] Mean Platelet Volume 13.4(H) 7.6 - 12.9 fL [facility] NRBC% auto 0.0 % [facility] NRBC Absolute 0.000 0.000 - 0.000 x10(3)/ L [facility] Blood specimen (specimen) 02/10/2017 10:37 PM EDT 02/10/2017 10:42 PM EDT Narrative Resulting Agency Comment Spec In Lab Heaml Goodrich Jr., MD HEMATOLOGY ORDERABLE S Performing Organization Address City/[facility]/ZIP Co de Phone Number [facility] [place] [place] [address] * (ABNORMAL) MARK (02/10/2017 10:37 PM EDT) [facility] MARK Titer to follow(A) Neg [facility] Blood specimen (specimen) 02/10/2017 10:37 PM EDT 02/11/2017 7:10 AM EDT Narrative Resulting Agency Comment Spec In Lab Hemal Goodrich Jr., MD LAB SEND OUT ORDERAB LES Performing Organization Address [facility] Co de Phone Number [facility] [place] [address] * (ABNORMAL) Comprehensive metabolic panel (non-fasting) (02/10/2017 10:37 PM EDT) [facility] Glucose 114 65 - 199 mg/dL [facility] Comment:Diabetes: >=200 mg/d L plus symptoms Blood Urea Nitrogen 6(L) 8 - 18 mg/dL [facility] Creatinine 0.80 0.70 - 1.20 mg/dL [facility] Comment: Please note that the pediatric reference intervals supplied above were not validated at [facility]. Results from pediatric patients should be interpreted in conjunction to the patient's age, height and muscle mass. Sodium 140 135 - 145 mmol/L [facility] Potassium 3.5 3.5 - 5.0 mmol/L [facility] Comment: Please note: ??Patients with WBC >100,000 may have falsely elevated Potassium levels. ??For accurate Potassium quantification in these patients send serum separator tube (gold top) for subsequent determinations. ??Contact the Clinical Chemistry Laboratory if there are any questions. Chloride 102 98 - 107 mmol/L [facility] Carbon Dioxide 20(L) 22 - 31 mmol/L [facility] Anion Gap 18(H) 5 - 15 mmol/L [facility] Calcium 9.5 8.5 - 10.5 mg/dL [facility] Protein, Total 7.6 6.1 - 8.0 gm/dL [facility] Albumin 4.3 3.2 - 5.2 gm/dL [facility] Aspartate Aminotransferase 15 0 - 30 unit/L [facility] Alanine Aminotransferase 9 0 - 30 unit/L [facility] Alkaline Phosphatase 50 40 - 104 unit/L [facility] Bilirubin, Total 0.7 0.2 - 1.3 mg/dL [facility] Est Glomerular Filtration Rate >60 >=60 [facility] Comment: This estimated GFR (eGFR) [...] the following links into your internet browser. [email or web address] Blood specimen (specimen) 02/10/2017 10:37 PM EDT 02/10/2017 10:42 PM EDT Narrative Resulting Agency Comment Spec In Lab Hemal Goodrich Jr., MD CHEMISTRY ORDERABLES [facility] [place] [address] * Folate, serum (02/10/2017 10:37 PM EDT) Folate >20.0 4.8 - 24.2 ng/mL [facility] Blood specimen (specimen) 02/10/2017 10:37 PM EDT 02/10/2017 10:42 PM EDT Narrative Resulting Agency Comment Spec In Lab Hemal Goodrich Jr., MD CHEMISTRY ORDERABLES Performing Organization Address [facility] Co de Phone Number [facility] [address] * Vitamin B12 (02/10/2017 10:37 PM EDT) Vitamin B12 549 207 - 974 pg/mL [facility] Blood specimen (specimen) 02/10/2017 10:37 PM EDT 02/10/2017 10:42 PM EDT Narrative Resulting Agency Comment Spec In Lab Hemal Goodrich Jr., MD CHEMISTRY ORDERABLES Performing Organization Address [facility] Co de Phone Number [facility] [place] [address] * HIV Screen, 4th Generation (02/10/2017 10:37 PM EDT) Pathologist [facility] HIV Ab/Ag Screen Negative Negative [facility] Comment: This 4th Generation HIV test [...] Jr., MD CHEMISTRY ORDERABLES Performing Organization Address [facility] Co de Phone Number [facility] [place] [address] * Peripheral Smear Review (02/10/2017 10:37 PM EDT) Peripheral Smear Review See Comment [facility] Comment: When completed by the Pathologist, report [id number] will display under Hematopathology Reports. Blood specimen (specimen) 02/10/2017 10:37 PM EDT 02/10/2017 10:42 PM EDT Narrative Resulting Agency Comment Spec In Lab Hemal Goodrich Jr., MD HEMATOLOGY ORDERABLE S [facility] [place] [address] * Beta HCG, quantitative (02/10/2017 10:37 PM EDT) Beta Human Chorionic Gonadotropin, Quantitative <1 mlU/ML [facility] Comment: REFERENCE RANGES NON- FEMALE: ??Less than 5 mIU/mL POSTMENOPAUSAL FEMALE: ??Less than 8 mIU/mL ? -- FEMALES -- Weeks of ? HCG range ??(mIU/mL) ? 3 weeks ? 5.8 - 71.2 ? 4 weeks ? 9.5 - 750 ? 5 weeks ? 217 - 7,138 ? 6 weeks ? 158 - 31,795 ? 7 weeks ? 3,697 - 163,563 ? 8 weeks ? 32,065 - 149,571 ? 9 weeks ? 63,803 - 151,410 ?10 weeks ? 46,509 - 186,977 ?12 weeks ? 27,832 - 210,612 ?14 weeks ? 13,950 - 62,530 ?15 weeks ? 12,039 - 70,971 ?16 weeks ? 9,040 - 56,451 ?17 weeks ? 8,175 - 39,868 ?18 weeks ? 8,099 - 58,176 Blood specimen (specimen) 02/10/2017 10:37 PM EDT 02/10/2017 10:42 PM EDT Narrative Resulting Agency Comment Spec In Lab Hemal Goodrich Jr., MD CHEMISTRY ORDERABLES [facility] [place] [address] * D-Dimer, Quantitative (02/10/2017 10:37 PM EDT) D-Dimer <270 0 - 500 FEU ng/ml [facility] Comment: The D-Dimer assay is used to aid in the diagnosis of deep vein thrombosis and pulmonary embolism. A normal D-Dimer result (less than 500 FEU ng/ml) has a negative predictive value of approximately 95% for the exclusion of acute PE and DVT when there is low to moderate pretest probability. Blood specimen (specimen) 02/10/2017 10:37 PM EDT 02/10/2017 10:42 PM EDT Narrative Resulting Agency Comment Spec In Lab Hemal Goodrich Jr., MD HEMATOLOGY ORDERABLE S Performing Organization Address [facility] Co de Phone Number [facility] [place] [address] * Thrombin time (02/10/2017 10:37 PM EDT) Thrombin Time 16 15 - 20 sec [facility] Comment: A prolongation in the thrombin time (>20 seconds) may be indicative of hypofibrinogenemia or dysfibrinogenemia. The thrombin time will be prolonged, often markedly so, by the presence of heparin or direct thrombin inhibitors (argatroban, bivalirudin, dabigatran) in the specimen. Blood specimen (specimen) 02/10/2017 10:37 PM EDT 02/10/2017 10:42 PM EDT Narrative Resulting Agency Comment Spec In Lab Hemal Goodrich Jr., MD HEMATOLOGY ORDERABLE S Performing Organization Address [facility] Co de Phone Number [facility] [place] [address] * Fibrinogen (02/10/2017 10:37 PM EDT) Fibrinogen 289 180 - 510 mg/dL [facility] Comment: A fibrinogen level >100 mg/dL is adequate for hemostasis in most patients without underlying bleeding disorders. Blood specimen (specimen) 02/10/2017 10:37 PM EDT 02/10/2017 10:42 PM EDT Narrative Resulting Agency Comment Spec In Lab Hemal Goodrich Jr., MD HEMATOLOGY ORDERABLE S Performing Organization Address City/[facility] Co de Phone Number [facility] [address] * APTT (02/10/2017 10:37 PM EDT) Partial Thromboplastin Time 30 25 - 35 sec [facility] Comment: The recommended therapeutic range for full dose, unfractionated heparin at [facility] is 80 ? 114 seconds. The use of the anti-Xa (heparin) level rather than the PTT is recommended for monitoring anticoagulation intensity in critically ill patients receiving unfractionated heparin by continuous IV infusion. Blood specimen (specimen) 02/10/2017 10:37 PM EDT 02/10/2017 10:42 PM EDT Narrative Resulting Agency Comment Spec In Lab Hemal Goodrich Jr., MD HEMATOLOGY ORDERABLE S Performing Organization Address [facility] de Phone Number [facility] [place] [address] * Prothrombin Time (02/10/2017 10:37 PM EDT) Prothrombin Time 14.9 12.0 - 15.0 sec [facility] Comment: An INR <2.0 indicates adequate procoagulant activity for hemostasis in most patients without underlying bleeding disorders, though the INR may not adequately reflect hemostatic capacity in patients with liver disease and synthetic impairment. The recommended target INR range for therapeutic anticoagulation is 2.0 ? 3.0 for most applications, though lower and higher ranges may be appropriate depending on clinical circumstances. 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 documented in this encounter Admitting Diagnoses Diagnosis Acute ITP Immune thrombocytopenic purpura documented in this encounter Administered Medications Inactive Administered Medications - up to 3 most recent administrations Medication Order MAR Action Action Date Dose Rate Site acetaminophen (TYLENOL) tablet 650 mg 650 mg, Oral, EVERY 6 HOURS PRN, Starting on Thu02/11/17 at 1005, Until Thu02/13/17 at 1631, Pain, Maximum dose of acetaminophen is 4000 mg from all sources in 24 hours., Routine Given 02/12/2017 9:00 PM EDT 650 mg calcium carbonate (TUMS) chewable tablet 1,000 mg 1,000 mg, Oral, ONCE, 1 dose, On Thu02/13/17 at 0330, STAT Given 02/13/2017 3:22 AM EDT 1,000 mg dexamethasone (DECADRON) 40 mg in sodium chloride 0.9% 60 mL 40 mg, Intravenous, DAILY, 4 doses, First dose on Thu02/11/17 at 1700, Last dose on Thu02/14/17 at 0900, Administer over 30 Minutes Given 02/13/2017 8:37 AM EDT 40 mg 120 mL/hr Given 02/12/2017 8:39 AM EDT 40 mg 120 mL/hr Given 02/11/2017 5:15 PM EDT 40 mg 120 mL/hr diphenhydrAMINE (BENADRYL) capsule 25 mg 25 mg, Oral, EVERY 6 HOURS PRN, Starting on Thu02/11/17 at 1700, Until Thu02/13/17 at 1631, Itching, Pre-medicate prior to IVIG infusion, Routine Given 02/12/2017 9:00 PM EDT 25 mg immune globulin (GAMUNEX-C) 20 gram/200 mL (10 %) solution 20 g 20 g, Intravenous, ONCE, 1 dose, On Thu02/11/17 at 1800, Gradually Increase rate as tolerated, per guidelines. Initial rate: 0.01-0.02mL/kg/min, Interim rate: 0.04mL/kg/min, Maxiumim rate: 0.08mL/kg/min , Please indicate the name & specialty of the Attending Provider who authorized the use of this medication: Hemal Goodrich MD, As of December 2020 IVIG supply has stabilized; the below listed indications are approved for use via P[employer]. All other indications require approval by P[employer]T Chair or [employer]-Call [employer] Work Supervisor. *Idiopathic thrombocytopenic purpura * Restarted 02/11/2017 10:16 PM EDT 20 g 212 mL/hr Rate/Dose Change 02/11/2017 8:28 PM EDT 20 g 106 mL/ hr Rate/Dose Change 02/11/2017 7:45 PM EDT 20 g 53 mL/h r immune globulin (GAMUNEX-C) 20 gram/200 mL (10 %) solution 20 g 20 g, Intravenous, ONCE, 1 dose, On Dionne 02/12/17 at 2030, Gradually Increase rate as tolerated, per guidelines. , Initial rate: 0.01-0.02mL/kg/min, Interim rate: 0.04mL/kg/min, , Maxiumim rate: 0.08mL/kg/min, Total dose is 25 grams., Please indicate the name & specialty of the Attending Provider who authorized the use of this medication: Hemal Goodrich MD, As of December 2020 IVIG supply has stabilized; the below listed indications are approved for use via P[employer]T. All other indications require approval by P[employer]T Chair or On-Call [employer] Work Supervisor. *Idiopathic thrombocytopenic purpura * Rate/Dose Change 02/12/2017 10:47 PM EDT 20 g 215 mL/hr Rate/Dose Change 02/12/2017 10:14 PM EDT 20 g 143 mL /hr New Bag 02/12/2017 9:31 PM EDT 20 g 72 mL/hr immune globulin (GAMUNEX-C) 5 gram/50 mL (10 %) solution 5 g 5 g, Intravenous, ONCE, 1 dose, On Thu02/11/17 at 1915, Gradually Increase rate as tolerated, per guidelines. Initial rate: 0.01-0.02mL/kg/min, Interim rate: 0.04mL/kg/min, Maxiumim rate: 0.08mL/kg/min , Please indicate the name & specialty of the Attending Provider who authorized the use of this medication: Hemal Goodrich MD, As of December 2020 IVIG supply has stabilized; the below listed indications are approved for use via P[employer]T. All other indications require approval by P[employer]T Chair or On-Call [employer] Work Supervisor. *Idiopathic thrombocytopenic purpura * New Bag 02/11/2017 11:12 PM EDT 5 g 283 mL/hr immune globulin (GAMUNEX-C) 5 gram/50 mL (10 %) solution 5 g 5 g, Intravenous, ONCE, 1 dose, On Dionne 02/12/17 at 2030, Gradually Increase rate as tolerated, per guidelines. , Initial rate: 0.01-0.02mL/kg/min, Interim rate: 0.04mL/kg/min, , Maxiumim rate: 0.08mL/kg/min, Total dose is 25 grams., Please indicate the name & specialty of the Attending Provider who authorized the use of this medication: Hemal Goodrich MD, As of December 2020 IVIG supply has stabilized; the below listed indications are approved for use via P&T. All other indications require approval by P&T Chair or On-Call [employer] Work Supervisor. *Idiopathic thrombocytopenic purpura * Rate/Dose Change 02/12/2017 11:31 PM EDT 5 g 286 mL/hr New Bag 02/12/2017 11:14 PM EDT 5 g 215 mL/hr magnesium sulfate 2 g in sterile water 50 mL 2 g, Intravenous, ONCE, 1 dose, On Thu02/11/17 at 1215, Administer over 120 Minutes New Bag 02/11/2017 1:27 PM EDT 2 g 25 mL/hr ondansetron (ZOFRAN) injection 4 mg 4 mg, Intravenous, EVERY 8 HOURS PRN, Starting on Thu02/10/17 at 2114, Until Thu02/13/17 at 1631, Nausea, May repeat times one in 30 minutes if ineffective. If multiple antiemetics are ordered, give ondansetron first. Given 02/11/2017 8:13 AM EDT 4 mg ondansetron (ZOFRAN) tablet 4 mg 4 mg, Oral, EVERY 8 HOURS PRN, Starting on Thu02/10/17 at 2114, Until Thu02/13/17 at 1631, Nausea, Vomiting, If multiple antiemetics are ordered, use ondansetron first. PO Preferred. If patient unable to take PO, may give IV if ordered. May repeat times one in 45 minutes if ineffective. If unable to take PO, may give IV., Routine pantoprazole (PROTONIX) tablet 40 mg 40 mg, Oral, DAILY, First dose on Dionne 02/12/17 at 1200, 10 doses, Last dose on 02/21/17 at 0900, DO NOT CRUSH OR OPEN Given 02/13/2017 8:38 AM EDT 40 mg Given 02/12/2017 12:47 PM EDT 40 mg potassium chloride (K-DUR/KLOR-CON) extended release tablet 40 mEq 40 mEq, Oral, ONCE, 1 dose, On Thu02/11/17 at 1415, 20 mEq tablet may be dissolved in water for administration, Routine Given 02/11/2017 2:44 PM EDT 40 mEq prochlorperazine (COMPAZINE) injection 10 mg 10 mg, Intravenous, EVERY 6 HOURS PRN, Starting on Thu02/10/17 at 2114, Until Thu02/13/17 at 1631, Nausea, Nausea/Vomiting, If multiple antiemetics are ordered, use ondansetron first. If ondansetron ineffective use prochlorperazine. , Routine prochlorperazine (COMPAZINE) tablet 10 mg 10 mg, Oral, EVERY 6 HOURS PRN, Starting on Thu02/10/17 at 2114, Until Thu02/13/17 at 1631, Nausea, Nausea/Vomiting, If multiple antiemetics are ordered, use ondansetron first. If ondansetron ineffective use prochlorperazine. PO Preferred. If patient unable to take PO, may give IV if ordered., Routine QUEtiapine (SEROquel) tablet 25 mg 25 mg, Oral, ONCE, 1 dose, On Thu02/13/17 at 0400, Routine Given 02/13/2017 4:00 AM EDT 25 mg QUEtiapine (SEROquel) XR tablet 50 mg 50 mg, Oral, ONCE PRN, 1 dose, Starting on Thu02/11/17 at 2115, Until Thu02/11/17 at 2252, inability to sleep, anxiety, DO NOT CRUSH OR OPEN, Routine Given 02/11/2017 10:52 PM EDT 50 mg sodium chloride 0.9 % flush 5 mL 5 mL, Intravenous, 2 TIMES DAILY, First dose on Thu02/10/17 at 2130, Until Discontinued, Routine Given 02/13/2017 9:00 AM EDT 10 mLs Given 02/12/2017 9:36 PM EDT 5 mLs Given 02/12/2017 8:43 AM EDT 5 mLs sodium chloride 0.9% infusion 1,000 mL, at 100 mL/hr, Intravenous, CONTINUOUS, Starting on Thu02/10/17 at 2130, Until Thu02/11/17 at 0529 New Bag 02/11/2017 12:57 AM EDT 1,000 mL s 100 mL/hr documented in this encounter Active and Recently Administered Medications Times are shown in EDT. Scheduled Medication Order 02/11/2017 02/12/2017 02/13/2017 calcium carbonate (TUMS) chewable tablet 1,000 mg (COMPLETED) 1,000 mg, Oral, ONCE, 1 dose, On Thu02/13/17 at 0330, STAT 0322 (Given - Provider: Naida Patterson, HESHAM) dexamethasone (DECADRON) 40 mg in sodium chloride 0.9% 60 mL (CANCELED) 40 mg, Intravenous, DAILY, 4 doses, First dose on Thu02/11/17 at 1700, Last dose on Thu02/14/17 at 0900, Administer over 30 Minutes 1715 (Given - Provider: Litzy Arciniega RN) 0839 (Given - Provider: Floridalma Schilling RN) 0837 (Given - Provider: Floridalma Schilling RN) immune globulin (GAMUNEX-C) 20 gram/200 mL (10 %) solution 20 g (COMPLETED)(Linked Group 1) 20 g, Intravenous, ONCE, 1 dose, On Thu02/11/17 at 1800, Gradually Increase rate as tolerated, per guidelines. Initial rate: 0.01-0.02mL/kg/min, Interim rate: 0.04mL/kg/min, Maxiumim rate: 0.08mL/kg/min , Please indicate the name & specialty of the Attending Provider who authorized the use of this medication: Hemal Goodrich MD, As of December 2020 IVIG supply has stabilized; the below listed indications are approved for use via P&T. All other indications require approval by P&T Chair or On-Call [employer] Work Supervisor. *Idiopathic thrombocytopenic purpura * 1839 (New Bag - Provider: Litzy Arciniega RN)1916 (Rate/Dose Change - Provider: Libertad Valenzuela RN)1944 (Rate/Dose Change - Provider: Naida Patterson RN)2027 (Rate/Dose Change - Provider: Naida Patterson RN)2113 (Stopped - Provider: Naida Patterson RN)2216 (Restarted - Provider: Naida Patterson RN)2245 (Stopped - Provider: Naida Patterson RN) immune globulin (GAMUNEX-C) 20 gram/200 mL (10 %) solution 20 g (COMPLETED) 20 g, Intravenous, ONCE, 1 dose, On Dionne 02/12/17 at 2030, Gradually Increase rate as tolerated, per guidelines. , Initial rate: 0.01-0.02mL/kg/min, Interim rate: 0.04mL/kg/min, , Maxiumim rate: 0.08mL/kg/min, Total dose is 25 grams., Please indicate the name & specialty of the Attending Provider who authorized the use of this medication: Hemal Goodrich MD, As of December 2020 IVIG supply has stabilized; the below listed indications are approved for use via P&T. All other indications require approval by P&T Chair or On-Call [employer] Work Supervisor. *Idiopathic thrombocytopenic purpura * 213 (New Bag - Provider: Naida Patterson RN - Comment: Lot number [id number] 11/15/2019Second check by Renetta Mariee)221 (Rate/Dose Change - Provider: Naida Patterson RN)224 (Rate/Dose Change - Provider: Naida Patterson RN) immune globulin (GAMUNEX-C) 5 gram/50 mL (10 %) solution 5 g (COMPLETED) 5 g, Intravenous, ONCE, 1 dose, On Thu02/11/17 at 1915, Gradually Increase rate as tolerated, per guidelines. Initial rate: 0.01-0.02mL/kg/min, Interim rate: 0.04mL/kg/min, Maxiumim rate: 0.08mL/kg/min , Please indicate the name & specialty of the Attending Provider who authorized the use of this medication: Hemal Goodrich MD, As of December 2020 IVIG supply has stabilized; the below listed indications are approved for use via P&T. All other indications require approval by P&T Chair or On-Call [employer] Work Supervisor. *Idiopathic thrombocytopenic purpura * 2312 (New Bag - Provider: Naida Patterson RN - Comment: Double checked by Libertad Valenzuela RN)2330 (Stopped - Provider: Naida Patterson RN) immune globulin (GAMUNEX-C) 5 gram/50 mL (10 %) solution 5 g (COMPLETED) 5 g, Intravenous, ONCE, 1 dose, On Thu02/12/17 at 2030, Gradually Increase rate as tolerated, per guidelines. , Initial rate: 0.01-0.02mL/kg/min, Interim rate: 0.04mL/kg/min, , Maxiumim rate: 0.08mL/kg/min, Total dose is 25 grams., Please indicate the name & specialty of the Attending Provider who authorized the use of this medication: Hemal Goodrich MD, As of December 2020 IVIG supply has stabilized; the below listed indications are approved for use via P&T. All other indications require approval by P&T Chair or On-Call [employer] Work Supervisor. *Idiopathic thrombocytopenic purpura * 2314 (New Bag - Provider: Naida Patterson RN - Comment: Lot number: [id number].: 07/09/2019Second check by: Libertad Valenzuela RN )2331 (Rate/Dose Change - Provider: Naida Patterson RN)2349 (Stopped - Provider: Naida Patterson RN) magnesium sulfate 2 g in sterile water 50 mL (COMPLETED) 2 g, Intravenous, ONCE, 1 dose, On Thu02/11/17 at 1215, Administer over 120 Minutes 1327 (New Bag - Provider: Litzy Arciniega, HESHAM) pantoprazole (PROTONIX) tablet 40 mg 40 mg, Oral, DAILY, First dose on Dionne 02/12/17 at 1200, 10 doses, Last dose on Thu02/21/17 at 0900, DO NOT CRUSH OR OPEN 1247 (Given - Provider: Floridalma Schilling, HESHAM) 0838 (Given - Provider: Floridalma Schilling, HESHAM) potassium chloride (K-DUR/KLOR-CON) extended release tablet 40 mEq (COMPLETED) 40 mEq, Oral, ONCE, 1 dose, On Thu02/11/17 at 1415, 20 mEq tablet may be dissolved in water for administration, Routine 1444 (Given - Provider: Litzy Arciniega, HESHAM) QUEtiapine (SEROquel) tablet 25 mg (COMPLETED) 25 mg, Oral, ONCE, 1 dose, On Thu02/13/17 at 0400, Routine 0400 (Given - Provider: Naida Patterson RN) sodium chloride 0.9 % flush 5 mL 5 mL, Intravenous, 2 TIMES DAILY, First dose on Thu02/10/17 at 2130, Until Discontinued, Routine 0056 (Given - Provider: Naida Patterson RN - Comment: no IV access before now.)0813 (Given - Provider: Litzy Arciniega RN)2100 (Not Given - Provider: Naida Patterson RN - Reason: See comment - Comment: infusing) 0843 (Given - Provider: Floridalma Schilling, HESHAM)2136 (Given - Provider: Naida Patterson RN) 0900 (Given - Provider: Floridalma Schilling, HESHAM) Continuous Medication Order 02/11/2017 02/12/2017 02/13/2017 sodium chloride 0.9% infusion () 1,000 mL, at 100 mL/hr, Intravenous, CONTINUOUS, Starting on Thu02/10/17 at 2130, Until Thu02/11/17 at 0529 0057 (New Bag - Provider: Naida Patterson RN) PRN Medication Order 02/11/2017 02/12/2017 02/13/2017 acetaminophen (TYLENOL) tablet 650 mg 650 mg, Oral, EVERY 6 HOURS PRN, Starting on Thu02/11/17 at 1005, Until Thu02/13/17 at 1631, Pain, Maximum dose of acetaminophen is 4000 mg from all sources in 24 hours., Routine 2099 (Given - Provider: Naida Patterson RN) diphenhydrAMINE (BENADRYL) capsule 25 mg 25 mg, Oral, EVERY 6 HOURS PRN, Starting on Thu02/11/17 at 1700, Until Thu02/13/17 at 1631, Itching, Pre-medicate prior to IVIG infusion, Routine 2099 (Given - Provider: Naida Patterson RN) lidocaine (XYLOCAINE) 10 mg/mL (1 %) injection 3 mg 3 mg (0.3 mL), Subcutaneous, ONCE PRN, 1 dose, Starting on Thu02/10/17 at 2114, Until Thu02/13/17 at 1631, for discomfort with PIV insertion, Routine ondansetron (ZOFRAN) injection 4 mg(Linked Group 2) 4 mg, Intravenous, EVERY 8 HOURS PRN, Starting on Thu02/10/17 at 2114, Until Thu02/13/17 at 1631, Nausea, May repeat times one in 30 minutes if ineffective. If multiple antiemetics are ordered, give ondansetron first. 0813 (Given - Provider: Litzy Arciniega RN) ondansetron (ZOFRAN) tablet 4 mg(Linked Group 2) 4 mg, Oral, EVERY 8 HOURS PRN, Starting on Thu02/10/17 at 2114, Until Thu02/13/17 at 1631, Nausea, Vomiting, If multiple antiemetics are ordered, use ondansetron first. PO Preferred. If patient unable to take PO, may give IV if ordered. May repeat times one in 45 minutes if ineffective. If unable to take PO, may give IV., Routine 812 (See Alternative - Provider: Litzy Arciniega RN) prochlorperazine (COMPAZINE) injection 10 mg(Linked Group 3) 10 mg, Intravenous, EVERY 6 HOURS PRN, Starting on Thu02/10/17 at 2114, Until Thu02/13/17 at 1631, Nausea, Nausea/Vomiting, If multiple antiemetics are ordered, use ondansetron first. If ondansetron ineffective use prochlorperazine. , Routine prochlorperazine (COMPAZINE) tablet 10 mg(Linked Group 3) 10 mg, Oral, EVERY 6 HOURS PRN, Starting on Thu02/10/17 at 2114, Until Thu02/13/17 at 1631, Nausea, Nausea/Vomiting, If multiple antiemetics are ordered, use ondansetron first. If ondansetron ineffective use prochlorperazine. PO Preferred. If patient unable to take PO, may give IV if ordered., Routine QUEtiapine (SEROquel) XR tablet 50 mg (COMPLETED) 50 mg, Oral, ONCE PRN, 1 dose, Starting on Thu02/11/17 at 2115, Until Thu02/11/17 at 2252, inability to sleep, anxiety, DO NOT CRUSH OR OPEN, Routine 2251 (Given - Provider: Naida Patterson RN) sodium chloride 0.9 % flush 5-20 mL 5-20 mL, Intravenous, EVERY 1 MIN PRN, Starting on Thu02/10/17 at 2114, Until Thu02/13/17 at 1631, flush, Flush pertains to all indwelling lines. Flush per protocol found in the job aid using the link provided on this medication record., Routine Linked Groups Order Group 1: immune globulin (GAMUNEX-C) 20 gram/200 mL (10 %) solution 20 g (COMPLETED)Jump to med 20 g, Intravenous, ONCE, 1 dose, On Thu02/11/17 at 1800, Gradually Increase rate as tolerated, per guidelines. Initial rate: 0.01-0.02mL/kg/min, Interim rate: 0.04mL/kg/min, Maxiumim rate: 0.08mL/kg/min , Please indicate the name & specialty of the Attending Provider who authorized the use of this medication: Hemal [place] MD, As of December 2020 IVIG supply has stabilized; the below listed indications are approved for use via [employer]. All other indications require approval by P[employer]T Chair or On-Call [employer] Work Supervisor. *Idiopathic thrombocytopenic purpura * And immune globulin (GAMUNEX-C) 20 gram/200 mL (10 %) solution 5 g (CANCELED) 5 g, Intravenous, ONCE, 1 dose, On Thu02/11/17 at 1800, Gradually Increase rate as tolerated, per guidelines. Initial rate: 0.01-0.02mL/kg/min, Interim rate: 0.04mL/kg/min, Maxiumim rate: 0.08mL/kg/min , Please indicate the name & specialty of the Attending Provider who authorized the use of this medication: Hemal [place] MD, As of December 2020 IVIG supply has stabilized; the below listed indications are approved for use via [employer]. All other indications require approval by P&T Chair or On-Call [employer] And [employer] Work Supervisor. *Idiopathic thrombocytopenic purpura * Group 2: ondansetron (ZOFRAN) tablet 4 mgJump to med 4 mg, Oral, EVERY 8 HOURS PRN, Starting on Thu02/10/17 at 2114, Until Thu02/13/17 at 1631, Nausea, Vomiting, If multiple antiemetics are ordered, use ondansetron first. PO Preferred. If patient unable to take PO, may give IV if ordered. May repeat times one in 45 minutes if ineffective. If unable to take PO, may give IV., Routine Or ondansetron (ZOFRAN) injection 4 mgJump to med 4 mg, Intravenous, EVERY 8 HOURS PRN, Starting on 02/10/17 at 2114, Until Thu02/13/17 at 1631, Nausea, May repeat times one in 30 minutes if ineffective. If multiple antiemetics are ordered, give ondansetron first. Group 3: prochlorperazine (COMPAZINE) tablet 10 mgJump to med 10 mg, Oral, EVERY 6 HOURS PRN, Starting on Thu02/10/17 at 2114, Until Thu02/13/17 at 1631, Nausea, Nausea/Vomiting, If multiple antiemetics are ordered, use ondansetron first. If ondansetron ineffective use prochlorperazine. PO Preferred. If patient unable to take PO, may give IV if ordered., Routine Or prochlorperazine (COMPAZINE) injection 10 mgJump to med 10 mg, Intravenous, EVERY 6 HOURS PRN, Starting on Thu02/10/17 at 2114, Until Thu02/13/17 at 1631, Nausea, Nausea/Vomiting, If multiple antiemetics are ordered, use ondansetron first. If ondansetron ineffective use prochlorperazine. , Routine documented in this encounter Care Teams Bleacher Sulfite Pulp Relationship Specialty Start Date End Date Presley Santillan MD [address] [place] [address] PCP - General Internal Medicine 02/10/17 documented as of this encounter
--- OUTSIDE RECORDS SUMMARY | 2024-05-03 07:21 | XMS_ITS | Encounter Summary ---
Author Organization [facility] Address [facility] [place] [address] Care Team Providers Care Footwear Machinery Instructor Name Role Phone Presley Santillan MD Primary Care Provider [phone] Encounter Details Date Type Department Care Team (Late st Contact Info) Description 02/10/2017 Telephone Hematology [place] [phone] Presley Choudhary MD [facility] DR HEMATOLOGY/[place] [address] Social History Tobacco Use Types Packs/Day Years Used Date Smoking Tobacco: Never Assessed Sex and Gender Information Value Date Recorded Sex Assigned at Not on file Gender Identity Not on file Sexual Orientation Not on file documented as of this encounter Miscellaneous Notes * Telephone Encounter - Presley Choudhary MD - 02/10/2017 8:18 AM EDT Called by a Dr. Santillan from [facility] who saw Daniela Gardner yesterday for an ER visit follow up. She presented to the ED last week with acute on chronic abdominal pain. CT scan suggested colitis (no splenomegaly) but other workup showed platelets of 61k. WBC and Hgb normal. At follow up appointment yesterday, platelets dropped to 14k with still normal WBC and Hgb. Dr. Santillan asked herif she had any bleeding or bruising which she denied. No other symptoms other than the abdominal pain. Was taking lots of OTC supplements but stopped those a few weeks ago. Otherwise no medications. 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 Verified with Dr. Santillan than Hgb was normal, which he did verify. Recommended referral to Hematology here for further workup. I will place labs (CBC, CMP, LDH, haptoglobin, peripheral smear, viral hepatitis given abdominal pain, coags) and Dr. Santillan will place referral order. documented in this encounter Plan of Treatment Not on file documented as of this encounter Visit Diagnoses Diagnosis Thrombocytopenia- Primary Thrombocytopenia, unspecified documented in this encounter Care Teams Footwear Machinery Instructor Relationship Specialty Start Date End Date Presley Santillan MD [address] [place] [address] PCP - General Internal Medicine 02/10/17 documented as of this encounter
--- OUTSIDE RECORDS SUMMARY | 2024-05-03 07:21 | XMS_ITS | Encounter Summary ---
Author Organization [facility] Address [address] [place] [address] Care Team Providers Care Pickling Solution Maker Name Role Phone Mir Medina MD Primary Care Provider [phone] Encounter Details Date Type Department Care Team (Late st Contact Info) Description 09/02/2017 Orders Only [facility] Adult Primary Care - [place] [address] [place] [address] Roberta Patricio MD [address] [place] [address] Social History Tobacco Use Types [...] on filedocumented in this encounter Care Teams Pickling Solution Maker Relationship Specialty Start Date End Date Mir Medina MD PCP - General 09/07/15 01/18/19 documented as of this encounter
--- OUTSIDE RECORDS SUMMARY | 2024-05-03 07:21 | XMS_ITS | Encounter Summary ---
Author Organization [facility] Address [address] [place] [address] Care Team Providers Care Nurse Technician Name Role Phone Unavailable Primary Care Provider Unavailabl e Encounter Details Date Type Department Care Team (Late st Contact Info) Description 12/09/2011 11:35 EDT - 12/09/2011 11:36 EDT Hospital Encounter [address] [address] Halina Segura, LIZBETH [address] [place] [phone] Discharge Disposition: Home or Self Care Social History Tobacco Use Types Packs/Day Years Used Date Smoking Tobacco: Never Assessed Sex and Gender Information Value Date Recorded Sex Assigned at Not on file Gender Identity Not on file Sexual Orientation Not on file documented as of this encounter Discharge Disposition Disposition Code Departure Means Destination Home or Self Care documented in this encounter Plan of Treatment Not on file documented as of this encounter Visit Diagnoses Not on filedocumented in this encounter
--- OUTSIDE RECORDS SUMMARY | 2024-05-03 07:21 | XMS_ITS | Encounter Summary ---
Author Organization [facility] Address [address] [place] [address] Care Team Providers Care Environmental Maintenance Worker Name Role Phone Jessica Mohamud KOTA Primary Care Provider [phone] Encounter Details Date Type Department Care Team (Late st Contact Info) Description 12/13/2019 Lab Requisition [facility] Pathology & Laboratory Medicine - [address] [id number] Outr Resulting Lab, Provider Social History Tobacco [...] Comments ZZCOVID-19 TEST [facility] PCR Today 12/13/2019 12:30 EDT COVID-19 TESTING Routine 12/13/2019 12:3 0 EDT documented in this encounter Results * COVID-19 TEST [facility] PCR (12/13/2019 12:30 EDT) Swab ENTIRE NASOPHARYNX / Unknown 12/13/2019 12:30 EDT 12/13/2019 15:44 EDT Provider Outr Resulting Lab MICROBIOLOGY - GENERAL ORDERABLES [facility] [address] [place] [address] * COVID-19 TESTING (12/13/2019 12:30 EDT) COVID-19 rt-PCR Result Negative Negative 12/13/2019 20:[address] [facility] Comment: This test has not [...] history, and epidemiological information. Performed on the Efizity Fusion instrument Performing Lab [place] [facility] 12/13/2019 20:[address] [facility] Swab ENTIRE NASOPHARYNX / Unknown 12/13/2019 12:30 EDT 12/13/2019 15:44 EDT Provider Outr Resulting Lab MICROBIOLOGY - GENERAL ORDERABLES [facility] [address] [place] [address] documented in this encounter Visit Diagnoses Not on filedocumented in this encounter Care Teams Environmental Maintenance Worker Relationship Specialty Start Date End Date Jessica Mohamud APRN [address] [place] [address] PCP - General 01/19/19 documented as of this encounter
[2024-05-03] MEDS: ACETAMINOPHEN 1,000 MG/100 ML BAG 400 MG IVPB (07:22)
[2024-05-03 07:37] LABS: ALT 20 U/L (14-59); AST 24 U/L (15-37); Albumin 4.4 g/dL (3.4-5.0); Alkaline Phosphatase 67 U/L (46-116); Anion Gap 10.1 mmol/L (3-11); BUN 7 mg/dL (7-18); Bilirubin, Direct 0.1 mg/dL (0.0-0.2); Bilirubin, Total 0.71 mg/dL (0.2-1.0); CO2 23.9 mmol/L (21.0-32.0); CREATININE 0.8 mg/dL (0.55-1.02); Chloride 107 mmol/L (98-107); Estimated GFR 98.48 (mL/min/1.73m2); Glucose 128 mg/dL (74-106); Lipase 47 U/L (16-77); Potassium 3.9 mmol/L (3.5-5.1); Sodium 141 mmol/L (136-145); Total Protein 7.7 g/dL (6.4-8.2)
[2024-05-03 07:47] LABS: Calcium 9.1 mg/dL (8.5-10.1)
[2024-05-03 08:21] VITALS: BP 121/54; PULSE 58; RESP 16; O2SAT 100
[2024-05-03 09:29] VITALS: BP 122/78; PULSE 60; RESP 16; O2SAT 100
[2024-05-03] MEDS: Ondansetron O.D.T. 4 MG TABEF, 3 TABS/BTL PO (09:31)
== END 2024-05-03 09:09 | disposition home or self-care (01) ==
PROVIDERS: Emergency Provider Student in an Organized Health Care Education/Training Program; PCP Nurse Practitioner Family
DX: R10.11 Right upper quadrant pain (principal); R11.2 Nausea with vomiting, unspecified; R19.7 Diarrhea, unspecified; Z87.891 Personal history of nicotine dependence
CPT/HCPCS: 80053; 83690; 96374; 96375; 99284; 76705; 82248; 83605; 85025; J0131; J2270; J2765

== ENCOUNTER 2024-05-03 17:24 | Emergency (ER) | payer MEDICAID, SELFPAY ==
[2024-05-03 17:28] VITALS: BP 132/81; PULSE 76; RESP 14; TEMP 36.6; O2SAT 98
--- OUTSIDE RECORDS SUMMARY | 2024-05-03 17:31 | XMS_ITS | Encounter Summary ---
Author Organization [facility] Address [facility] [place] [address] Care Team Providers Care Folder Machine Operator Name Role Phone Presley Santillan MD Primary Care Provider Reason for Referral * Occupational Therapy (Routine) - Closed Specialty Diagnoses / Procedures Referred By Daryl t Referred To Contact Diagnoses Carpal tunnel syndrome, bilateral Christian Abdullahi MD [facility] [place] [address] Unknown None Referral ID Status Reason Start Date Expiration Date V isits Requested Visits Authorized [id number] Closed Evaluate and Treat 10/17/2022 04/15/2023 12 12 Encounter Details Date Type Department Care Team (Late st Contact Info) Description 10/17/2022 Orders [place] [address] Christian Abdullahi MD [facility] [place] [address] Carpal tunnel syndrome, bilateral (Primary Dx) Social [...] place to sleep or slept in a snf (including now)? No 04/18/2022 Sex and Gender [...] syndrome documented in this encounter Care Teams Folder Machine Operator Relationship Specialty Start Date End Date Presley Santillan MD [address] [place] [address] PCP - General Internal Medicine 02/10/17 documented as of this encounter
--- OUTSIDE RECORDS SUMMARY | 2024-05-03 17:31 | XMS_ITS | Encounter Summary ---
Author Organization [facility] Address [facility] [place] [address] Care Team Providers Care Public Health Representative Name Role Phone Presley Santillan MD Primary Care Provider Reason for Visit * Reason Comments Follow Up Surgery S/p re-release right carpal tunnel with median nerve Encounter Details Date Type Department Care Team (Late st Contact Info) Description 02/02/2023 10:20 AM EDT Office [place] [address] Jocelyn Padilla [facility] [place] [address] Surgery follow-up Social History Tobacco Use Types [...] place to sleep or slept in a [place] health care facility (including now)? No 04/18/2022 DH IPV Inpatient [...] surgery documented in this encounter Care Teams Public Health Representative Relationship Specialty Start Date End Date Presley Santillan MD [address] [place] [address] PCP - General Internal Medicine 02/10/17 documented as of this encounter
--- OUTSIDE RECORDS SUMMARY | 2024-05-03 17:31 | XMS_ITS | Encounter Summary ---
Author Organization [facility] Address [facility] [place] [address] Care Team Providers Care Plating Inspector Name Role Phone Presley Santillan MD Primary Care Provider [phone] Encounter Details Date Type Department Care Team [...] in a assisted (including now)? No 04/18/2022 DH IPV Inpatient [...] on filedocumented in this encounter Care Teams Plating Inspector Relationship Specialty Start Date End Date Presley Santillan MD [address] [place] [address] PCP - General Internal Medicine 02/10/17 documented as of this encounter
--- OUTSIDE RECORDS SUMMARY | 2024-05-03 17:31 | XMS_ITS | Encounter Summary ---
Author Organization [facility] Address [facility] [place] [address] Care Team Providers Care Sales Promoter Name Role Phone Presley Santillan MD Primary Care Provider [phone] Encounter Details Date Type Department Care Team (Late st Contact Info) Description 09/04/2022 Telephone Plastic Surgery at [facility] [place] [phone] Julianne Urrutia Social History Tobacco Use Types [...] on filedocumented in this encounter Care Teams Sales Promoter Relationship Specialty Start Date End Date Presley Santillan MD [address] [place] [address] PCP - General Internal Medicine 02/10/17 documented as of this encounter
--- OUTSIDE RECORDS SUMMARY | 2024-05-03 17:31 | XMS_ITS | Encounter Summary ---
Author Organization [facility] Address [facility] [place] [address] Care Team Providers Care Second Steward Name Role Phone Presley Santillan MD Primary Care Provider Reason for Visit * Occupational Therapy (Routine) - Closed Specialty Diagnoses / Procedures Referred By Daryl sargent Referred To Contact Occupational Therapy Diagnoses Carpal tunnel syndrome, bilateral Vini Greene, [facility] [place] [address] [facility] [address] [place] [address] Referral ID Status Reason Start Date Expiration Date V isits Requested Visits Authorized [id number] Closed Evaluate and Treat 10/20/2022 10/20/2023 30 30 Encounter Details Date Type Department Care Team (Late st Contact Info) Description 11/03/2022 11:15 AM EDT Office Visit Occupational Therapy at [facility] [address] [place] [address] Mercedez Shaw, OT Carpal tunnel [...] to sleep or slept in a senior care (including now)? 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 [...] post op Treatment Today: Evaluation LOW Complexity (36654) Educated patient in etiology and biomechanics as [...] syndrome documented in this encounter Care Teams Second Steward Relationship Specialty Start Date End Date Presley Santillan MD [address] [place] [address] PCP - General Internal Medicine 02/10/17 documented as of this encounter
--- OUTSIDE RECORDS SUMMARY | 2024-05-03 17:31 | XMS_ITS | Encounter Summary ---
Author Organization [facility] Address [facility] [place] [address] Care Team Providers Care Assistant Professor Of Marine Biology Name Role Phone Presley Santillan MD Primary Care Provider Encounter Details Date Type Department Care Team (Late st Contact Info) Description 11/03/2022 Telephone Plastic Surgery at [facility] [place] [phone] Vikki Ford Social History Tobacco Use Types [...] a group home (including now)? No 04/18/2022 DH IPV Inpatient [...] on filedocumented in this encounter Care Teams Assistant Professor Of Marine Biology Relationship Specialty Start Date End Date Presley Santillan MD [address] [place] [address] PCP - General Internal Medicine 02/10/17 documented as of this encounter
--- OUTSIDE RECORDS SUMMARY | 2024-05-03 17:31 | XMS_ITS | Encounter Summary ---
Author Organization [facility] [place] [address] Care Team Providers Care Watch Caser Name Role Phone Presley Santillan MD Primary Care Provider Encounter Details Date Type Department Care Team (Late st Contact Info) Description 09/10/2022 Orders Only Neurosurgery at [facility] [place] [address] Daniela Justin MD [facility] [place] [address] Carpal tunnel syndrome, bilateral (Primary Dx) Social [...] place to sleep or slept in a [facility] (including now)? No 04/18/2022 Sex and Gender Information Value Date Recorded Sex Assigned at Not on file Gender Identity Not on file Sexual Orientation Not on file documented as of this encounter Plan of Treatment Not on file documented as of this encounter Visit Diagnoses Diagnosis Carpal tunnel syndrome, bilateral- Primary Carpal tunnel syndrome documented in this encounter Care Teams Watch Caser Relationship Specialty Start Date End Date Presley Santillan MD [address] [place] [address] PCP - General Internal Medicine 02/10/17 documented as of this encounter
--- OUTSIDE RECORDS SUMMARY | 2024-05-03 17:31 | XMS_ITS | Encounter Summary ---
Author Organization [facility] [place] [address] Care Team Providers Care Building Certifier Name Role Phone Presley Santillan MD Primary Care Provider [phone] Reason for Visit * Auth/Cert (Routine) Specialty [...] RELEASE) MARK (WRVU 4.97) Christian Abdullahi MD [facility] [place] [address] [facility] Referral ID Status Reason Start Date Expiration Date Visits Re quested Visits Authorized [id number] 1 1 Encounter Details Date Type Department Care Team (Late st Contact Info) Description 10/20/2022 1:44 PM EDT Anesthesia Event [facility] [place] [phone] Shawna Fletcher MD Palmer, Justin D, MD [facility] [place] [address] Anesthesia Record Procedure Summary Procedure [...] 1231; metacarpal vein (top of hand), left; [id number] catheter system; Anatomical Landmarks; 22 gauge; emk; [...] Procedure Summary Date: 10/20/22 Room / Location: [address] Anesthesia Start: 1344 Anesthesia Stop: 1554 [...] All Anesthesia Providers: Anesthesiologist: Shawna Fletcher MD Ballistician: Eder Nice MD Vitals Value Taken Time BP 106/76 10/20/22 1600 Temp 36.2 ??C (97.2 ??F) 10/20/22 1551 Pulse 76 10/20/22 1603 Resp 14 10/20/22 1551 SpO2 100 % 10/20/22 1602 Pain Level 0 10/20/22 1600 Vitals shown include unvalidated device data. Patient [facility]: PACU/[facility] Level of Consciousness: Conscious but Sleepy Pain [...] 3.66) performed by Marino Smith MD at [facility] ??? PRO COLONOSCOPY, DIAGNOSTIC N/A 06/25/2017 COLONOSCOPY, DIAGNOSTIC performed by Marino Smith MD at [facility] ??? PRO UPPER GI ENDOSCOPY, DIAGNOSTIC N/A 06/25/2017 EGD, UPPER GI ENDOSCOPY performed by Marino Smith MD at [facility] Social History Tobacco Use ??? Smoking [...] Other (See Comments) MAKES ME RESTLESS ??? [place] Other (See Comments) Abdominal pain ??? Cis [...] mg documented in this encounter Care Teams Building Certifier Relationship Specialty Start Date End Date Presley Santillan MD [address] [place] [address] PCP - General Internal Medicine 02/10/17 documented as of this encounter
--- OUTSIDE RECORDS SUMMARY | 2024-05-03 17:31 | XMS_ITS | Encounter Summary ---
Author Organization [facility] Address [facility] [place] [address] Care Team Providers Care Technical Buyer Name Role Phone Presley Santillan MD Primary Care Provider [phone] Encounter Details Date Type Department Care Team [...] a long term (including now)? No 04/18/2022 DH IPV Inpatient [...] on filedocumented in this encounter Care Teams Technical Buyer Relationship Specialty Start Date End Date Presley Santillan MD [address] [place] [address] PCP - General Internal Medicine 02/10/17 documented as of this encounter
--- OUTSIDE RECORDS SUMMARY | 2024-05-03 17:31 | XMS_ITS | Encounter Summary ---
Author Organization [facility] Address [facility] [place] [address] Care Team Providers Care Clam Shovel Operator Name Role Phone Presley Santillan MD Primary Care Provider [phone] Reason for Visit * Reason Comments Follow Up Surgery Encounter Details Date Type Department Care Team (Late st Contact Info) Description 11/03/2022 10:00 AM EDT Office [place] [phone] Jocelyn Padilla INTERIOR DESIGN FACULTY MEMBER [facility] [place] [address] Surgery follow-up Social History Tobacco Use Types [...] place to sleep or slept in a prison (including now)? No 04/18/2022 DH IPV Inpatient [...] surgery documented in this encounter Care Teams Clam Shovel Operator Relationship Specialty Start Date End Date Presley Santillan MD [address] [place] [address] PCP - General Internal Medicine 02/10/17 documented as of this encounter
--- OUTSIDE RECORDS SUMMARY | 2024-05-03 17:31 | XMS_ITS | Encounter Summary ---
Author Organization [facility] Address [facility] [place] [address] Care Team Providers Care Cloth Printing Inspector Name Role Phone Presley Santillan MD Primary Care Provider [phone] Encounter Details Date Type Department Care Team (Late st Contact Info) Description 08/28/2022 Telephone Plastic Surgery at [facility] [place] [phone] Vikki Ford Social History Tobacco Use Types [...] place to sleep or slept in a jail (including now)? No 04/18/2022 Sex and Gender Information Value Date Recorded Sex Assigned at Not on file Gender Identity Not on file Sexual Orientation Not on file documented as of this encounter Plan of Treatment Not on file documented as of this encounter Visit Diagnoses Not on filedocumented in this encounter Care Teams Cloth Printing Inspector Relationship Specialty Start Date End Date Presley Santillan MD [address] [place] [address] PCP - General Internal Medicine 02/10/17 documented as of this encounter
--- OUTSIDE RECORDS SUMMARY | 2024-05-03 17:31 | XMS_ITS | Encounter Summary ---
Author Organization [facility] Address [facility] [place] [address] Care Team Providers Care Enamel Shader Name Role Phone Presley Santillan MD Primary Care Provider [phone] Reason for Referral * Occupational Therapy (Routine) - Closed Specialty Diagnoses / Procedures Referred By Daryl sargent Referred To Contact Occupational Therapy Diagnoses Carpal tunnel syndrome, bilateral Vini Greene PA [facility] [place] [address] [facility] [address] [place] [address] Referral ID Status Reason Start Date Expiration Date V isits Requested Visits Authorized [id number] Closed Evaluate and Treat 10/20/2022 10/20/2023 30 [...] MD [facility] [place] [address] [facility] Referral ID Status Reason Start Date Expiration Date Visits Re quested Visits Authorized [id number] 1 1 Encounter Details Date Type Department Care Team (Latest Contact Info) Description 10/20/2022 11:29 AM EDT - 10/20/2022 5:00 PM EDT Hospital Encounter Outpatient [place] [address] Christian Haynes MD [facility] [place] [address] Carpal tunnel syndrome, bilateral Discharge Disposition: Home [...] place to sleep or slept in a usp (including now)? No 04/18/2022 DH IPV Inpatient [...] closest emergency room or call the hospital wash oil pump operator at [phone] and ask for physician construction engineering manager covering for your physician. Questions or problems after 5pm or on a weekend: [facility] oil pump operator at and ask for the physician construction engineering manager covering for your doctor. At 1215pm you [...] scheduling, please contact our administrative offices at [phone] Future Appointments Date Time Provider Department Center 11/03/2022 1:40 PM Kandi Bal APRN [facility] PLAS [facility] For clinical questions, please call our nurses at [phone] Both offices are open Thursday thru Thursday 8a - 5p. With emergencies after hours, call the hospital wash oil pump operator at [phone] and ask for the Plastic Surgery Resident construction engineering manager. documented in this encounter Medications at Time [...] WITH BX (WRVU 3.66) performed by Marino mSith MD at [facility] ??? PRO COLONOSCOPY, DIAGNOSTIC N/A 06/25/2017 COLONOSCOPY, DIAGNOSTIC performed by Marino Smith MD at [facility] ??? PRO UPPER GI ENDOSCOPY, DIAGNOSTIC N/A 06/25/2017 EGD, UPPER GI ENDOSCOPY performed by Marino Smith MD at [facility] Allergies Allergen Reactions ??? Zofran Odt [Ondansetron] Other (See Comments) MAKES ME RESTLESS ??? [place] Other (See Comments) Abdominal pain ??? Cis [...] Haynes MD - 10/20/2022 2:15 PM EDT [facility] Operative Note Patient Name: Daniela Ruiz : [id number] MR#: [id number] Case Date: 10/20/2022 Surgeon: Surgeon(s) and Role: [...] Justin MD - 10/20/2022 2:15 PM EDT [facility] Operative Note Patient Name: Daniela Ruiz : [id number] MR#: [id number] Case Date: 10/20/2022 Surgeon: Surgeon(s) and Role: [...] right wrist, this is marked with green [place]. The patient was brought back to the [...] Diagnosis Comments Revise Median N/Carpal Tunnel Surg (47665) 10/20/2022 1:43 PM EDT Carpal tunnel syndrome of right wrist Grafting of Autologous Soft Tiss by Direct Excision (77744) 10/20/2022 1:43 PM EDT Carpal tunnel syndrome of right wrist Revise Median N/Carpal Tunnel Surg (10011) 10/20/2022 1:43 PM EDT Carpal tunnel syndrome [...] RN) documented in this encounter Care Teams Enamel Shader Relationship Specialty Start Date End Date Presley Santillan MD [address] [place] [address] PCP - General Internal Medicine 02/10/17 documented as of this encounter
--- OUTSIDE RECORDS SUMMARY | 2024-05-03 17:31 | XMS_ITS | Encounter Summary ---
Author Organization [facility] [place] [address] Care Team Providers Care Switch Coupler Name Role Phone Presley Santillan MD Primary [...] RELEASE) MARK (WRVU 4.97) Christian Haynes MD [facility] [place] [address] [facility] Referral ID Status Reason Start Date Expiration Date Visits Re quested Visits Authorized [id number] 1 1 Encounter Details Date Type Department Care Team (Late st Contact Info) Description 10/20/2022 1:20 PM EDT - 10/20/2022 3:40 PM EDT Surgery [place] [address] Christian Haynes MD [facility] [place] [address] MEDIAN NERVE DECOMPRESSION (CARPAL TUNNEL RELEASE) (WRVU [...] in a jail (including now)? No 04/18/2022 DH IPV Inpatient [...] closest emergency room or call the hospital cryptographic machine operator at [phone] and ask for physician tactical air control party covering for your physician. Questions or problems after 5pm or on a weekend: Call the [facility] cryptographic machine operator at and ask for the physician tactical air control party covering for your doctor. At 1215pm you [...] scheduling, please contact our administrative offices at [phone] Future Appointments Date Time Provider Department Center 11/03/2022 1:40 PM Kandi Bal APRN [facility] PLAS 4[facility] For clinical questions, please call our nurses at [phone] Both offices are open Thursday thru Thursday 8a - 5p. With emergencies after hours, call the hospital cryptographic machine operator at [phone] and ask for the Plastic Surgery Resident tactical air control party. documented in this encounter Medications at Time [...] 3.66) performed by Marino Smith MD at [facility] ??? PRO COLONOSCOPY, DIAGNOSTIC N/A 06/25/2017 COLONOSCOPY, DIAGNOSTIC performed by Marino Smith MD at [facility] ??? PRO UPPER GI ENDOSCOPY, DIAGNOSTIC N/A 06/25/2017 EGD, UPPER GI ENDOSCOPY performed by Marino Smith MD at [facility] Allergies Allergen Reactions ??? Zofran Odt [Ondansetron] Other (See Comments) MAKES ME RESTLESS ??? [place] Other (See Comments) Abdominal pain ??? Cis [...] Haynes MD - 10/20/2022 2:15 PM EDT [facility] Operative Note Patient Name: Daniela Ruiz : [id number] MR#: [id number] Case Date: 10/20/2022 Surgeon: Surgeon(s) and Role: [...] Justin MD - 10/20/2022 2:15 PM EDT [facility] Operative Note Patient Name: Daniela Ruiz : [id number] MR#: [id number] Case Date: 10/20/2022 Surgeon: Surgeon(s) and Role: [...] right wrist, this is marked with green [place]. The patient was brought back to the [...] Diagnosis Comments Revise Median N/Carpal Tunnel Surg (25916) 10/20/2022 1:43 PM EDT Carpal tunnel syndrome of right wrist Grafting of Autologous Soft Tiss by Direct Excision (18023) 10/20/2022 1:43 PM EDT Carpal tunnel syndrome of right wrist Revise Median N/Carpal Tunnel Surg (11575) 10/20/2022 1:43 PM EDT Carpal tunnel syndrome [...] RN) documented in this encounter Care Teams Switch Coupler Relationship Specialty Start Date End Date Presley Santillan MD [address] [place] [address] PCP - General Internal Medicine 02/10/17 documented as of this encounter
--- OUTSIDE RECORDS SUMMARY | 2024-05-03 17:31 | XMS_ITS | Clinical Summary ---
Author Organization [facility] Address [facility] [place] [address] Care Team Providers Care Claim Processor Name Role Phone Presley Santillan MD Primary Care Provider Allergies Active Allergy Reactions Criticality Noted Date Comments [place] Other (See Comments) 02/10/2017 Abdominal pain Cis [...] 1:13 PM EDT HIV SCREEN, 4TH GENERATION ([facility]) Routine 02/10/2017 10:37 PM EDT from Last 3 Months or Most Recently Relevant to Health Maintenance Results * Hepatitis C Antibody (02/11/2017 1:13 PM EDT) Hepatitis C Antibody Negative Negative [facility] Comment: An updated Hepatitis C Ab assay reagent was implemented on 09/10/16. Please contact Dr. Alvarez at [phone] with any questions or concerns. Blood specimen (specimen) 02/11/2017 1:13 PM EDT 02/11/2017 1:32 PM EDT Narrative Resulting Agency Comment Spec In Lab Hemal Goodrich Jr., MD CHEMISTRY ORDERABLES [facility] [place] [address] * HIV Screen, 4th Generation (02/10/2017 10:37 PM EDT) HIV Ab/Ag Screen Negative Negative [facility] Comment: This 4th Generation HIV [...] Jr., MD CHEMISTRY ORDERABLES Performing Organization Address City/[facility] Co de Phone Number [facility] [place] [address] from Last 3 Months or Most Recently [...] capacity to make decision: Yes Care Teams Claim Processor Relationship Specialty Start Date End Date Presley Santillan MD [address] [place] [address] PCP - General Internal Medicine 02/10/17
--- OUTSIDE RECORDS SUMMARY | 2024-05-03 17:32 | XMS_ITS | Encounter Summary ---
Author Organization [facility] [place] [address] Care Team Providers Care Township Supervisor Name Role Phone Presley Santillan MD Primary Care Provider [phone] Reason for Visit * Reason Onset Date Comments Follow-up 01/05/2019 Encounter Details Date Type Department Care Team (Late st Contact Info) Description 01/05/2019 Telephone Hematology/Oncology at [address] [address] Anamaria Lamas RN Follow-up Social [...] on filedocumented in this encounter Care Teams Township Supervisor Relationship Specialty Start Date End Date Presley Santillan MD [address] [place] [address] PCP - General Internal Medicine 02/10/17 documented as of this encounter
--- OUTSIDE RECORDS SUMMARY | 2024-05-03 17:32 | XMS_ITS | Encounter Summary ---
Author Organization [facility] [place] [address] Care Team Providers Care Ground Support Equipment Fitter Name Role Phone Presley Santillan MD Primary Care Provider [phone] Reason for Visit * Reason Onset Date Comments Labs Only 08/31/2017 lab tracking Encounter Details Date Type Department Care Team (Late st Contact Info) Description 08/31/2017 Telephone Hematology/Oncology at [address] [address] Anamaria Lamas RN Labs Only [...] 9:57 AM EST LAB TRACKING Yaneth Gardner [id number] Diagnosis: ITP Labs ordered: every 4 weeks [...] issues. Plan:Labs normal reviewed with Angeli Dao FLUE DUST LABORER, labs again in 4 weeks. Results for [...] 06/01/17 7.27 12.2/36.4 209k 3.86 Stopped dex [facility] 06/30/16 05/25/17 8.15 12.2/35.5 153k 5.21 Dex 40 mg 05/25-05/28 [facility] 06/1505/04/17 7.77 12.4/36.3 153k 4.74 Dex 40 mg 05/04-05/07 [facility] 05/2504/20/17 10.15 12.6/35.2 175k 5.67 Completed 4 days of dex 04/16/17 [facility] 05/04/17 04/10/17 10.44 12.3/36.1 112k 7.26 [...] on filedocumented in this encounter Care Teams Ground Support Equipment Fitter Relationship Specialty Start Date End Date Presley Santillan MD [address] [place] [address] PCP - General Internal Medicine 02/10/17 documented as of this encounter
--- OUTSIDE RECORDS SUMMARY | 2024-05-03 17:32 | XMS_ITS | Encounter Summary ---
Author Organization [facility] [place] [address] Care Team Providers Care Agile Java Developer Name Role Phone Presley Santillan MD Primary Care Provider [phone] Reason for Visit * Reason Onset Date Comments Follow-up 12/20/2018 Encounter Details Date Type Department Care Team (Late st Contact Info) Description 12/20/2018 Telephone Hematology/Oncology at [address] [address] Aanmaria Lamas RN Follow-up Social History Tobacco Use [...] Miscellaneous Notes * Telephone Encounter - Anamaria Laams RN - 12/20/2018 8:52 AM EDT Per pt request letter mailed to pt stating she is due for labs by 12/29/18. CBC lab slip enclosedAntonio Jay look for labs on December 29. documented in this encounter Plan of Treatment Not on file documented as of this encounter Visit Diagnoses Not on filedocumented in this encounter Care Teams Agile Java Developer Relationship Specialty Start Date End Date Presley Santillan MD [address] [place] [address] PCP - General Internal Medicine 02/10/17 documented as of this encounter
--- OUTSIDE RECORDS SUMMARY | 2024-05-03 17:32 | XMS_ITS | Encounter Summary ---
Author Organization [facility] [place] [address] Care Team Providers Care Grip Name Role Phone Presley Santillan MD Primary Care Provider [phone] Reason for Visit * Reason Onset Date Comments Labs Only 07/31/2017 Lab Tracking Encounter Details Date Type Department Care Team (Late st Contact Info) Description 07/31/2017 Telephone Hematology Oncology at [address] [address] Carlita Hoskins RN Labs Only [...] 4:45 PM EST LAB TRACKING Daniela Gardner [id number] Diagnosis: ITP Labs ordered: every 4 weeks [...] 5.45 Had bruising on knees and elbows [facility] 07/28/18 06/01/17 7.27 12.2/36.4 209k 3.86 Stopped dex [facility] 06/30/16 05/25/17 8.15 12.2/35.5 153k 5.21 Dex 40 mg 05/25-05/28 [facility] 06/1505/04/17 7.77 12.4/36.3 153k 4.74 Dex 40 mg 05/04-05/07 [facility] 05/2504/20/17 10.15 12.6/35.2 175k 5.67 Completed 4 days of dex 04/16/17 [facility] 05/04/17 04/10/17 10.44 12.3/36.1 112k 7.26 4ht cycle dex start 04/13. Prior to vs with Dr Whitfield on 04/2203/30/17 9.57 12.7/36.1 206k 5.04 4th Rituxan due03/31 Labs again on 04/0703/24/17 7.87 12/34.9 120k 5.13 3rd rituxan due 03/25 Labs again 03/31/17 03/16/17 11.79 12.1/34.8 129k 8.18 2nd Rituxan given 03/18 [facility] 03/2403/06/17 11.59 11.8/35.4 166k 9.67 1st rituxan given 03/11 [facility] 03/16 documented in this encounter Plan of Treatment Not on file documented as of this encounter Visit Diagnoses Not on filedocumented in this encounter Care Teams Grip Relationship Specialty Start Date End Date Presley Santillan MD [address] [place] [address] PCP - General Internal Medicine 02/10/17 documented as of this encounter
--- OUTSIDE RECORDS SUMMARY | 2024-05-03 17:32 | XMS_ITS | Encounter Summary ---
Author Organization [facility] [place] [address] Care Team Providers Care Acid Cleaner Name Role Phone Presley Santillan MD Primary Care Provider [phone] Reason for Visit * Reason Onset Date Comments Labs Only 09/21/2018 Reminder to get labs Encounter Details Date Type Department Care Team (Late st Contact Info) Description 09/21/2018 Telephone Hematology/Oncology at [address] [address] Geovanna Quintero RN Labs Only [...] on filedocumented in this encounter Care Teams Acid Cleaner Relationship Specialty Start Date End Date Presley Santillan MD [address] [place] [address] PCP - General Internal Medicine 02/10/17 documented as of this encounter
--- OUTSIDE RECORDS SUMMARY | 2024-05-03 17:32 | XMS_ITS | Encounter Summary ---
Author Organization [facility] Address [facility] [place] [address] Care Team Providers Care Bell Cleaner Name Role Phone Presley Santillan MD [...] Expiration Date Visits Re quested Visits Authorized [id number] 1 1 Encounter Details Date Type Department Care Team (Latest Contact Info) Description 06/25/2017 9:45 AM EST - 06/25/2017 1:34 PM EST Hospital En[place] [address] Sara Siddiqui MD [facility] [place] [address] Discharge Disposition: Home Social History Tobacco Use [...] to be checked. Thursday-Thursday Same Day Endo [phone]-[id number] Otherwise contact [phone] and ask to speak to the harvesting supervisor radiology interventional physician Follow up care is a calvillo part [...] Other (See Comments) MAKES ME RESTLESS ??? [place] Other (See Comments) Abdominal pain ??? Cis [...] EST 06/25/2017 1:20 PM EST Narrative [facility] - 06/25/2017 1:20 PM EST Specimen requisition ordered. ??Separate Pathology report to follow Resulting Agency Comment Spec In Lab Marino Smith MD PATHOLOGY/CYTOLOG Y ORDERABLES Performing Organization Address City/[facility]/ZIP Co de Phone Number [facility] [place] [address] * Specimen to Pathology (surgical or derm) (06/25/2017 12:18 PM EST) AP Specimen 06/25/2017 12:1 8 PM EST 06/25/2017 1:20 PM EST Narrative [facility] - 06/25/2017 1:20 PM EST Specimen requisition ordered. ??Separate Pathology report to follow Resulting Agency Comment Spec In Lab Marino Smith MD PATHOLOGY/CYTOLOG Y ORDERABLES Performing Organization Address City/[facility]/[place] [address] * Specimen to Pathology (surgical or derm) (06/25/2017 12:18 PM EST) AP Specimen 06/25/2017 12:1 8 PM EST 06/25/2017 1:20 PM EST Narrative [facility] - 06/25/2017 1:20 PM EST Specimen requisition ordered. ??Separate Pathology report to follow Resulting Agency Comment Spec In Lab Marino Smith MD PATHOLOGY/CYTOLOG Y ORDERABLES Performing Organization Address [facility] [place] [address] * Specimen to Pathology (surgical or derm) (06/25/2017 12:18 PM EST) AP Specimen 06/25/2017 12:1 8 PM EST 06/25/2017 1:20 PM EST Narrative [facility] - 06/25/2017 1:20 PM EST Specimen requisition ordered. ??Separate Pathology report to follow Resulting Agency Comment Spec In Lab Marino Smith MD PATHOLOGY/CYTOLOG Y ORDERABLES Performing Organization Address [facility] [place] [address] * Specimen to Pathology (surgical or derm) (06/25/2017 12:18 PM EST) AP Specimen 06/25/2017 12:1 8 PM EST 06/25/2017 1:20 PM EST Narrative [facility] - 06/25/2017 1:20 PM EST Specimen requisition ordered. ??Separate Pathology report to follow Resulting Agency Comment Spec In Lab Marino Smith MD PATHOLOGY/CYTOLOG Y ORDERABLES Performing Organization Address [facility] [place] [address] * Surgical Pathology Report (06/25/2017 12:17 PM EST) Final Diagnosis [id number] ? Location: 4T; EA09; A The signing [...] Oshea MD Verified: ??06/26/2017 ?Pathologist Performed at: ??[facility] Dept. [place]ology, [place], [place] CLINICAL INFORMATION Specimen Submitted: A - [...] (T1) ??ejr 06/26/2017 4:03 PM EST [facility] GI Biopsy 06/25/2017 12:1 7 [...] Marino Smith MD PATHOLOGY/CYTOLOG Y ORDERABLES [facility] [place] [address] * UPPER GI ENDOSCOPY (06/25/2017 11:27 AM EST) UPPER GI ENDOSCOPY [facility] Endoscopy Procedure Date: 06/25/2017 11:27 AM ? Patient Name: Daniela Gardner ? N: [id number] ? Date of : 1990 ? Age: 26 ? Order #: [id number] ? Instrument Name: [id number] ? Procedure: ? Upper GI endoscopy Indications: [...] * COLONOSCOPY (06/25/2017 11:25 AM EST) COLONOSCOPY [facility] Endoscopy Procedure Date: 06/25/2017 11:25 AM ? Patient Name: Daniela Gardner ? N: [id number] ? Date of : 1990 ? Age: 26 ? Order #: [id number] ? Instrument Name: [id number] ? Procedure: ? Colonoscopy Indications: ? Upper [...] preparation was evaluated using ? the BBPS (Hinkley Bowel Preparation ? Scale) with scores of: [...] CRNA) documented in this encounter Care Teams Bell Cleaner Relationship Specialty Start Date End Date Presley Santillan MD [address] [place] [address] PCP - General Internal Medicine 02/10/17 documented as of this encounter
--- OUTSIDE RECORDS SUMMARY | 2024-05-03 17:32 | XMS_ITS | Encounter Summary ---
Author Organization [facility] [place] [address] Care Team Providers Care Emergency Medical Dispatcher Name Role Phone Presley Santillan MD Primary [...] Expiration Date Visits Re quested Visits Authorized [id number] 1 1 Encounter Details Date Type Department Care Team (Late st Contact Info) Description 06/25/2017 11:32 AM EST Anesthesia [place] [address] James Montiel DO [facility] DR [place] [address] Anesthesia Record Procedure Summary Procedure Name Responsible [...] to commands. 1224 Recovery or ICU Handoff Naomie ent care was transferred to the destination unit staff after review of the patient's medical history, current anesthetic/surgical status and plan, according to the Provider Handoff Checklist. 1225 Stop Patient awake, alert, and oriented; actively conversing with staff. Spontaneous ventilation without issue. VSS. Full report given to CORRECTIONAL OFFICER SERGEANT. Meds Name Total IV Lidocaine 50 mg Propofol 140 mg Propofol INF 336.6 mg lactated Ringers infusion 900 mL * Agents Name O2 Auxiliary Flowmeter 1 * Blood No blood administrations on file. Lines, Drains, and Airways Type Details Placement Removal (RETIRED) Peripheral IV Line - Single Lumen 04/17/17; 1256; median cubital vein (antecubital fossa), right; zjfi-dvw-uymmzk catheter system; 22 gauge, 3/4 in length; tolerated well, appears comfortable; 06/25/17; 1306 04/17/17 1256 by Nitesh Brooke 06/25/17 1306 by Grisel Castanon RN (RETIRED) Peripheral IV Line - Single Lumen 06/25/17; 1030; metacarpal vein (top of hand), right; acci-rpw-tnojzp catheter system; 20 gauge, 1 in length; [...] Montiel DO - 06/25/2017 2:53 PM EST [facility] of Anesthesiology Post-procedure Note Patient: Daniela Gardner Procedure Summary Date Anesthesia Start Anesthesia Stop Room / Location 06/25/17 1132 1225 [facility] ENDO 4 / [facility] ENDOSCOPY Procedure Diagnosis Surgeon Responsible Provider COLONOSCOPY, DIAGNOSTIC (N/A Trunk); EGD, UPPER GI ENDOSCOPY (N/A Trunk) Alternating constipation and diarrhea; Abdominal pain, unspecified location (h/o colitis seen on CT scan at OSH, c/o abdominal pain, alternating diarreha/constipation. Needs to r/o IBD Doctor ; (consult)) Marino Smith MD Joshi, [place], DO All Anesthesia Providers: Anesthesiologist: James Montiel DO INTERVENTIONAL RADIOLOGIST: Zaira Velasquez CRNA Most Recent Vitals: 06/25/17 1250 BP: Pulse: Resp: SpO2: 100% Pain Patient Location: PACU/[facility] Level of Consciousness: Awake and Alert Pain [...] Not on file Allergies Allergen Reactions ??? [place] Other (See Comments) Abdominal pain ??? Cis [...] risks discussed with patient. Plan discussed with INTERVENTIONAL RADIOLOGIST and attending. PAT Staff Note documented in [...] mL/hr documented in this encounter Care Teams Emergency Medical Dispatcher Relationship Specialty Start Date End Date Presley Santillan MD [address] [place] [address] PCP - General Internal Medicine 02/10/17 documented as of this encounter
--- OUTSIDE RECORDS SUMMARY | 2024-05-03 17:32 | XMS_ITS | Encounter Summary ---
Author Organization [facility] [place] [address] Care Team Providers Care Washer Cutter Name Role Phone Presley Santillan MD Primary Care Provider [phone] Reason for Visit * Reason Onset Date Comments Follow-up 09/15/2018 Encounter Details Date Type Department Care Team (Late st Contact Info) Description 09/15/2018 Telephone Hematology/Oncology at [address] [address] Nolberto Monreal RN Follow-up Social [...] on filedocumented in this encounter Care Teams Washer Cutter Relationship Specialty Start Date End Date Presley Santillan MD [address] [place] [address] PCP - General Internal Medicine 02/10/17 documented as of this encounter
--- OUTSIDE RECORDS SUMMARY | 2024-05-03 17:32 | XMS_ITS | Encounter Summary ---
Author Organization [facility] Address [facility] [place] [address] Care Team Providers Care Tie Man Name Role Phone Presley Santillan MD Primary Care Provider [phone] Encounter Details Date Type Department Care Team (Late st Contact Info) Description 07/18/2019 1:45 PM EST - 07/18/2019 2:30 PM EST [place] [phone] Marino Smith MD [facility] [place] [address] COLONOSCOPY FLEXIBLE, WITH BX (WRVU 3.56) Social [...] sent through Care Everywhere. * Colonoscopy: Post-op (Syriac) documented in this encounter Medications at Time [...] Other (See Comments) MAKES ME RESTLESS ??? Gill Other (See Comments) Abdominal pain ??? Cis [...] complication. Informed Consent signed by patient (or education courses sales representative). documented in this encounter Plan of Treatment Not on file documented as of this encounter Procedures Procedure Name Priority Date/Time Associated Diagnosis Comments SPECIMEN TO PATHOLOGY Routine 07/18/2019 2:44 PM EST SURGICAL PATHOLOGY REPORT Routine 07/18/2019 2:41 PM EST COLONOSCOPY Routine 07/18/2019 2:20 PM EST Colonoscopy, Biopsy ([id number]) 07/18/2019 2:19 PM EST colo documented in this encounter Results * Specimen to Pathology (07/18/2019 2:44 PM EST) AP Specimen 07/18/2019 2:44 PM EST 07/18/2019 2:44 PM EST Narrative [facility] - 07/18/2019 2:44 PM EST Specimen requisition ordered. ??Separate Pathology report to follow Marino Smith MD PATHOLOGY/CYTOLOG Y ORDERABLES [facility] [place] [address] * Surgical Pathology Report (07/18/2019 2:41 PM EST) Final Diagnosis [id number] ? Location: 4T; EA10; A The signing pathologist has (i) examined the relevant preparation(s) for the specimen(s) and (ii) rendered or confirmed the diagnosis(es). . ?Surgical Pathology DIAGNOSIS Random colon, biopsy: Colonic mucosa within normal limits. CR-PX Electronically signed by: ??Tati Bunch MD Verified: ??07/22/2019 ?Pathologist Performed at: ??-[facility] [place] Dept. of Pathology, [place], [place] CLINICAL INFORMATION Specimen Submitted: A - Random colon biopsies non-targeted Clinical History and Diagnosis: Chronic diarrhea SPECIMEN PROCESSING A - Labeled/Fixativ e: Random colon biopsies non-targeted, formalin. Quantity/Size: Six, averaging 0.3 cm. Tissue Description: Soft, pink tissues. Sections/Proces sing: Submitted en toto ??in 2 cassettes labeled A1-A2. ??ejr 07/22/2019 9:06 AM EST [facility] GI Biopsy 07/18/2019 2:41 PM EST 07/18/2019 2:41 PM EST Marino Smith MD PATHOLOGY/CYTOLOG Y ORDERABLES [facility] [place] [address] * COLONOSCOPY (07/18/2019 2:20 PM EST) COLONOSCOPY [facility] Endoscopy ___ Procedure Date: 07/18/2019 2:20 PM ? Patient Name: Daniela Gardner ? Date of : 1990 ? Age: 28 ? Order #: [id number] ? Instrument Name: [id number] ? ___ Procedure: ? Colonoscopy Indications: ? [...] preparation was ? evaluated using the BBPS ([place] ? Bowel Preparation Scale) with scores ? [...] PROVATION 07/18/2019 2:20 PM EST Jessica Mohamud WHEEL SHOP SUPERVISOR GENERAL SURGICAL ORDERABLES PROVATION documented in this [...] RN) documented in this encounter Care Teams Tie Man Relationship Specialty Start Date End Date Presley Santillan MD [address] [place] [address] PCP - General Internal Medicine 02/10/17 documented as of this encounter
--- OUTSIDE RECORDS SUMMARY | 2024-05-03 17:32 | XMS_ITS | Encounter Summary ---
Author Organization [facility] Address [facility] [place] [address] Care Team Providers Care Cad Librarian Name Role Phone Presley Santillan MD Primary Care Provider Encounter Details Date Type Department Care Team (Late st Contact Info) Description 06/25/2017 Telephone [place] [phone] Marino Smith MD [facility] [place] [address] Social History Tobacco Use Types Packs/Day Years [...] 3:25 PM EST Patient calls endoscopy s/p [place]/EGD for chronic abdominal pain and diarrhea She [...] we will await biopsies. Marino Smith MD [facility] [place] documented in this encounter Plan of Treatment Not on file documented as of this encounter Visit Diagnoses Not on filedocumented in this encounter Care Teams Cad Librarian Relationship Specialty Start Date End Date Presley Santillan MD [address] [place] [address] PCP - General Internal Medicine 02/10/17 documented as of this encounter
--- OUTSIDE RECORDS SUMMARY | 2024-05-03 17:32 | XMS_ITS | Encounter Summary ---
Author Organization [facility] Address [facility] [place] [address] Care Team Providers Care Commodity Analyst Name Role Phone Presley Santillan MD Primary Care Provider [phone] Encounter Details Date Type Department Care Team [...] health care facility (including now)? No 04/18/2022 Sex and Gender Information Value Date Recorded Sex Assigned at Not on file Gender Identity Not on file Sexual Orientation Not on file documented as of this encounter Plan of Treatment Not on file documented as of this encounter Visit Diagnoses Not on filedocumented in this encounter Care Teams Commodity Analyst Relationship Specialty Start Date End Date Presley Santillan MD [address] [place] [address] PCP - General Internal Medicine 02/10/17 documented as of this encounter
--- OUTSIDE RECORDS SUMMARY | 2024-05-03 17:32 | XMS_ITS | Encounter Summary ---
Author Organization [facility] Address [facility] [place] [address] Care Team Providers Care Grain Trader Name Role Phone Presley Santillan MD Primary Care Provider Reason for Visit * Reason Comments Establish Care * Consultation (Routine) - Closed Specialty Diagnoses / Procedures Referred By Contac t Referred To Contact Hematology and Oncology Diagnoses Immune thrombocytopenic purpura Cora Robles APRN [address] [place] [address] [facility] Hem Onc [address] [place] [address] Referral ID Status Reason Start Date Expiration Date V isits Requested Visits Authorized [id number] Closed Consult, Test & Treat PCP Updated and/or Approved 12/25/2021 12/25/2022 1 1 Encounter Details Date Type Department Care Team (Latest Contact Info) Description 04/18/2022 9:00 AM EDT Office Visit Hematology [place] [address] Samira Oneill MD [facility] DR [place]AT[place] [address] Guille Rivas, [facility] HEMATOLOGY/[place] [address] Nory Clemons RN Easy bruising; [...] and Rituximab. She has not followed at [facility] (Dr. Whitfield) since 2018. Daniela [...] Tunnel Release b/l Appendectomy recently (since 2018). [place] Teeth Hysterectomy (for heavy mensural bleeding). OBSTETRIC [...] odt [ondansetron] Other (See Comments) 06/25/2017 ??? [place] Other (See Comments) 02/10/2017 ??? Cis free [...] use. Rarely drinks alcohol. 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 She has 2 step children from [...] Lewis DO Fellow, Hematology and Medical Oncology [facility] Pager: [phone], 04/18/22, 2:20 PM * Samira Oneill MD [...] recommendations at that time. Samira Oneill MD Strategic Communications Specialist, [facility] documented in this encounter Plan of Treatment Not on file documented as of this encounter Results * ABORh Type Manual (04/18/2022 10:10 AM EDT) Expires at [id number] on: 04/21/2022 [facility] ABORH Type A Pos [facility] Blood 04/18/2022 10:1 0 AM EDT 04/18/2022 10:16 AM EDT Narrative Resulting Agency Comment Spec In Lab Samira Oneill MD BLOOD BANK LAB ORD ERABLES Performing Organization Address [facility] Co de Phone Number [facility] [place] [address] * TSH (04/18/2022 10:10 AM EDT) Thyroid Stimulating Hormone 1.07 0.27 - 4.20 mcIU/mL [facility] Comment: Reference Interval (mcIU/mL): Females: ??First Trimester: 0.23-3.88 ??Second Trimester: 0.22-3.90 ??Third Trimester: 0.44-4.66 Blood 04/18/2022 10:1 0 AM EDT 04/18/2022 10:32 AM EDT Narrative Resulting Agency Comment Spec In Lab Samira Oneill MD CHEMISTRY ORDERABL ES [facility] [place] [address] documented in this encounter Visit Diagnoses Diagnosis Easy bruising Other symptoms involving skin and integumentary tissues Benign joint hypermobility syndrome documented in this encounter Care Teams Grain Trader Relationship Specialty Start Date End Date Presley Santillan MD [address] [place] [address] PCP - General Internal Medicine 02/10/17 documented as of this encounter
--- OUTSIDE RECORDS SUMMARY | 2024-05-03 17:32 | XMS_ITS | Encounter Summary ---
Author Organization [facility] [place] [address] Care Team Providers Care Solar Energy Systems Engineer Name Role Phone Presley Santillan MD Primary Care Provider Reason for Visit * Reason Onset Date Comments Labs Only 10/01/2018 Lab Tracking Encounter Details Date Type Department Care Team (Late st Contact Info) Description 10/01/2018 Telephone Hematology/Oncology at [address] [address] Geovanna Quintero, RN Labs Only [...] 4:57 PM EDT LAB TRACKING Yaneth Gardner [id number] Diagnosis: ITP Labs ordered: every 3 months [...] on filedocumented in this encounter Care Teams Solar Energy Systems Engineer Relationship Specialty Start Date End Date Presley Santillan MD [address] [place] [address] PCP - General Internal Medicine 02/10/17 documented as of this encounter
--- OUTSIDE RECORDS SUMMARY | 2024-05-03 17:32 | XMS_ITS | Encounter Summary ---
Author Organization [facility] [place] [address] Care Team Providers Care Terminal Computer Operator Name Role Phone Presley Santillan MD Primary Care Provider Reason for Visit * Reason Onset Date Comments Labs Only 11/04/2017 Lab Tracking Encounter Details Date Type Department Care Team (Late st Contact Info) Description 11/04/2017 Telephone Hematology/Oncology at [address] [address] Nolberto Monreal, RN Labs Only [...] 11:36 AM EDT LAB TRACKING Yaneth Gardner [id number] Diagnosis: ITP Labs ordered: every 4 weeks [...] 5.45 Had bruising on knees and elbows [facility] 07/28/18 06/01/17 7.27 12.2/36.4 209k 3.86 Stopped dex [facility] 06/30/16 05/25/17 8.15 12.2/35.5 153k 5.21 Dex 40 mg 05/25-05/[address] [facility] 06/1505/04/17 7.77 12.4/36.3 153k 4.74 Dex 40 mg 05/04-05/[address] [facility] 05/2504/20/17 10.15 12.6/35.2 175k 5.67 Completed 4 days of dex 04/16/[address] [facility] 05/04/17 04/10/17 10.44 12.3/36.1 112k 7.26 4ht [...] on filedocumented in this encounter Care Teams Terminal Computer Operator Relationship Specialty Start Date End Date Presley Santillan MD [address] [place] [address] PCP - General Internal Medicine 02/10/17 documented as of this encounter
--- OUTSIDE RECORDS SUMMARY | 2024-05-03 17:32 | XMS_ITS | Encounter Summary ---
Author Organization [facility] Address [facility] [place] [address] Care Team Providers Care Guest Relation Officer Name Role Phone Presley Santillan MD Primary Care Provider [phone] Encounter Details Date Type Department Care Team (Latest Contact Info) Description 05/02/2022 12:00 PM EDT TH Visit (TeleHealth) [place] [phone] Samira Oneill MD [facility] [address] [place] [address] Bruising; Benign joint hypermobility syndrome Social History [...] place to sleep or slept in a detention (including now)? No 04/18/2022 Sex and Gender [...] and Rituximab. She has not followed at [facility] (Dr. Whitfield) since 2018. Daniela is here [...] Tunnel Release b/l Appendectomy recently (since 2018). [place] Teeth Hysterectomy (for heavy mensural bleeding). OBSTETRIC [...] odt [ondansetron] Other (See Comments) 06/25/2017 ??? [place] Other (See Comments) 02/10/2017 ??? Cis free [...] Rarely drinks alcohol. 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 She has 2 step children [...] the future as appropriate. Samira Oneill MD Auctioneer Art, [facility] documented in this encounter Plan of Treatment Not on file documented as of this encounter Visit Diagnoses Diagnosis Bruising Contusion of unspecified site Benign joint hypermobility syndrome documented in this encounter Care Teams Guest Relation Officer Relationship Specialty Start Date End Date Presley Santillan MD [address] [place] [address] PCP - General Internal Medicine 02/10/17 documented as of this encounter
--- OUTSIDE RECORDS SUMMARY | 2024-05-03 17:32 | XMS_ITS | Encounter Summary ---
Author Organization [facility] Address [facility] [place] [address] Care Team Providers Care Supervisor Fitting Name Role Phone Presley Santillan MD Primary Care Provider [phone] Reason for Visit * Reason Comments Follow-up post-procedure Abdominal Pain Encounter Details Date Type Department Care Team (Late st Contact Info) Description 07/13/2017 9:30 AM EST Office Visit [place] [address] Marino Smith MD [facility] [place] [address] Irritable bowel syndrome with diarrhea; Abdominal pain, [...] the issues outlined above. Marino Smith MD [facility] [place] [place] documented in this encounter Plan of Treatment Not on file documented as of this encounter Visit Diagnoses Diagnosis Irritable bowel syndrome with diarrhea Irritable bowel syndrome Abdominal pain, generalized Abdominal bloating Flatulence, eructation, and gas pain Functional diarrhea documented in this encounter Care Teams Supervisor Fitting Relationship Specialty Start Date End Date Presley Santillan MD [address] [place] [address] PCP - General Internal Medicine 02/10/17 documented as of this encounter
--- OUTSIDE RECORDS SUMMARY | 2024-05-03 17:32 | XMS_ITS | Encounter Summary ---
Author Organization [facility] [place] [address] Care Team Providers Care Plate Stacker Hand Name Role Phone Presley Santillan MD Primary Care Provider Reason for Visit * Reason Onset Date Comments Labs Only 04/22/2017 lab tracking Encounter Details Date Type Department Care Team (Late st Contact Info) Description 04/22/2017 Telephone Hematology/Oncology at [address] [phone] Anamaria Lamas RN Labs Only [...] of dex on Thursday. Daniela Sharon Gardner [id number] Diagnosis: ITP Labs ordered: every 3 weeks [...] 11.8/35.4 166k 9.67 1st rituxan given 03/11 [facility] 03/16 documented in this encounter Plan of Treatment Not on file documented as of this encounter Visit Diagnoses Not on filedocumented in this encounter Care Teams Plate Stacker Hand Relationship Specialty Start Date End Date Presley Santillan MD [address] [place] [address] PCP - General Internal Medicine 02/10/17 documented as of this encounter
--- OUTSIDE RECORDS SUMMARY | 2024-05-03 17:32 | XMS_ITS | Encounter Summary ---
Author Organization [facility] [place] [address] Care Team Providers Care Auto Brake Technician Name Role Phone Presley Santillan MD Primary Care Provider [phone] Reason for Visit * Reason Onset Date Comments Reminder Appointment 06/16/2018 for labs Encounter Details Date Type Department Care Team (Late st Contact Info) Description 06/16/2018 Telephone Hematology/Oncology at [address] [phone] Nolberto Monreal RN Reminder Appointment [...] on filedocumented in this encounter Care Teams Auto Brake Technician Relationship Specialty Start Date End Date Presley Santillan MD [address] [place] [address] PCP - General Internal Medicine 02/10/17 documented as of this encounter
--- OUTSIDE RECORDS SUMMARY | 2024-05-03 17:32 | XMS_ITS | Encounter Summary ---
Author Organization [facility] Address [facility] [place] [address] Care Team Providers Care Lubrication Worker Name Role Phone Presley Santillan MD Primary Care Provider Encounter Details Date Type Department Care Team (Late st Contact Info) Description 08/04/2017 Orders Only H[place]ology [place] [address] Yovani Fajardo MD [facility] [address] [place] [address] Social History Tobacco Use Types Packs/Day Years [...] on filedocumented in this encounter Care Teams Lubrication Worker Relationship Specialty Start Date End Date Presley Santillan MD [address] [place] [address] PCP - General Internal Medicine 02/10/17 documented as of this encounter
--- OUTSIDE RECORDS SUMMARY | 2024-05-03 17:32 | XMS_ITS | Encounter Summary ---
Author Organization [facility] [place] [address] Care Team Providers Care Game Attendant Name Role Phone Presley Santillan MD Primary Care Provider [phone] Reason for Visit * Reason Onset Date Comments Labs Only 09/29/2018 Encounter Details Date Type Department Care Team (Late st Contact Info) Description 09/29/2018 Telephone Hematology/Oncology at [address] [address] Anamaria Lamas RN Labs Only [...] on filedocumented in this encounter Care Teams Game Attendant Relationship Specialty Start Date End Date Presley Santillan MD [address] [place] [address] PCP - General Internal Medicine 02/10/17 documented as of this encounter
--- OUTSIDE RECORDS SUMMARY | 2024-05-03 17:32 | XMS_ITS | Encounter Summary ---
Author Organization [facility] [place] [address] Care Team Providers Care Sld Inclusion Teacher Name Role Phone Presley Santillan MD Primary Care Provider [phone] Encounter Details Date Type Department Care Team (Late st Contact Info) Description 03/02/2018 Telephone Hematology Oncology at [address] [phone] Carlita Hoskins RN Social History [...] on filedocumented in this encounter Care Teams Sld Inclusion Teacher Relationship Specialty Start Date End Date Presley Santillan MD [address] [place] [address] PCP - General Internal Medicine 02/10/17 documented as of this encounter
--- OUTSIDE RECORDS SUMMARY | 2024-05-03 17:32 | XMS_ITS | Encounter Summary ---
Author Organization Formerly [facility] [place] [address] Care Team Providers Care Blueprint Assembler Name Role Phone Presley Santillan MD Primary Care Provider [phone] Reason for Visit * Reason Onset Date Comments Labs Only 06/03/2017 lab tracking Encounter Details Date Type Department Care Team (Late st Contact Info) Description 06/03/2017 Telephone Hematology/Oncology at [address] [phone] Anamaria Lamas RN Labs Only [...] 2:19 PM EST LAB TRACKING Daniela Gardner [id number] Diagnosis: ITP Labs ordered: every 4 weeks CBC (and PRN if pt wants to see one , she will let us know she went to lab she realizes we may not get back to her for a few days with results) Medications: Dex 40mg x 4 days every 3 weeks completed 04/2017 Rituxan infusions x4 (03/11/17-04/01/17) Assessment saw Angeli Acosta MATHEMATICS FACULTY MEMBER in clinic today Plan pt will do labs in 4 weeks Date WBC HGB/HCT PLT ANC PLAN LABS 06/01/17 7.27 12.2/36.4 209k 3.86 Stopped dex [facility] 06/30/16 05/25/17 8.15 12.2/35.5 153k 5.21 Dex 40 mg 05/25-05/28 [facility] 06/1505/04/17 7.77 12.4/36.3 153k 4.74 Dex 40 mg 05/04-05/07 [facility] 05/2504/20/17 10.15 12.6/35.2 175k 5.67 Completed 4 days of dex 04/16/17 [facility] 05/04/17 04/10/17 10.44 12.3/36.1 112k 7.26 [...] on filedocumented in this encounter Care Teams Blueprint Assembler Relationship Specialty Start Date End Date Presley Santillan MD [address] [place] [address] PCP - General Internal Medicine 02/10/17 documented as of this encounter
--- OUTSIDE RECORDS SUMMARY | 2024-05-03 17:32 | XMS_ITS | Encounter Summary ---
Author Organization Formerly [facility] [place] [address] Care Team Providers Care Business Services Assistant Name Role Phone Presley Santillan MD Primary Care Provider Reason for Visit * Reason Onset Date Comments Labs Only 05/04/2017 lab tracking Encounter Details Date Type Department Care Team (Late st Contact Info) Description 05/04/2017 Telephone Hematology/Oncology at [address] [phone] Anamaria Lamas RN Labs Only [...] 11:25 AM EST LAB TRACKING Daniela Gardner [id number] Diagnosis: ITP Labs ordered: every 3 weeks [...] 12.1/34.8 129k 8.18 2nd Rituxan given 03/18 [facility] 03/2403/06/17 11.59 11.8/35.4 166k 9.67 1st rituxan given 03/11 [facility] 03/16 documented in this encounter Plan of Treatment Not on file documented as of this encounter Visit Diagnoses Not on filedocumented in this encounter Care Teams Business Services Assistant Relationship Specialty Start Date End Date Presley Santillan MD [address] [place] [address] PCP - General Internal Medicine 02/10/17 documented as of this encounter
--- OUTSIDE RECORDS SUMMARY | 2024-05-03 17:32 | XMS_ITS | Encounter Summary ---
Author Organization [facility] Address [facility] [place] [address] Care Team Providers Care University Extension Specialist Name Role Phone Presley Santillan MD Primary Care Provider Encounter Details Date Type Department Care Team (Late st Contact Info) Description 07/18/2019 12:30 PM EST - 07/18/2019 3:44 PM EST Hospital En[place] [phone] Marino Smith MD [facility] [place] [address] Discharge Disposition: Home Social History Tobacco Use [...] sent through Care Everywhere. * Colonoscopy: Post-op ([place]) documented in this encounter Medications at Time [...] Other (See Comments) MAKES ME RESTLESS ??? Avery Other (See Comments) Abdominal pain ??? Cis [...] complication. Informed Consent signed by patient (or international account representative). documented in this encounter Plan of Treatment Not on file documented as of this encounter Procedures Procedure Name Priority Date/Time Associated Diagnosis Comments SPECIMEN TO PATHOLOGY Routine 07/18/2019 2:44 PM EST SURGICAL PATHOLOGY REPORT Routine 07/18/2019 2:41 PM EST COLONOSCOPY Routine 07/18/2019 2:20 PM EST Colonoscopy, Biopsy ([id number]) 07/18/2019 2:19 PM EST colo documented in this encounter Results * Specimen to Pathology (07/18/2019 2:44 PM EST) AP Specimen 07/18/2019 2:44 PM EST 07/18/2019 2:44 PM EST Narrative [facility] - 07/18/2019 2:44 PM EST Specimen requisition ordered. ??Separate Pathology report to follow Marino Smith MD PATHOLOGY/CYTOLOG Y ORDERABLES [facility] [place] [address] * Surgical Pathology Report (07/18/2019 2:41 PM EST) Final Diagnosis [id number] ? Location: 4T; EA10; A The signing pathologist has (i) examined the relevant preparation(s) for the specimen(s) and (ii) rendered or confirmed the diagnosis(es). . ?Surgical Pathology DIAGNOSIS Random colon, biopsy: Colonic mucosa within normal limits. CR-PX Electronically signed by: ??Tati Bunch MD Verified: ??07/22/2019 ?Pathologist Performed at: ??-[facility] Dept. of Pathology, [place], [place] CLINICAL INFORMATION Specimen Submitted: A - Random colon biopsies non-targeted Clinical History and Diagnosis: Chronic diarrhea SPECIMEN PROCESSING A - Labeled/Fixativ e: Random colon biopsies non-targeted, formalin. Quantity/Size: Six, averaging 0.3 cm. Tissue Description: Soft, pink tissues. Sections/Proces sing: Submitted en toto ??in 2 cassettes labeled A1-A2. ??ejr 07/22/2019 9:06 AM EST [facility] GI Biopsy 07/18/2019 2:41 PM EST 07/18/2019 2:41 PM EST Marino Smith MD PATHOLOGY/CYTOLOG Y ORDERABLES [facility] [place] [address] * COLONOSCOPY (07/18/2019 2:20 PM EST) COLONOSCOPY [facility] ___ Procedure Date: 07/18/2019 2:20 PM ? Patient Name: Daniela Gardner ? Date of : 1990 ? Age: 28 ? Order #: [id number] ? Instrument Name: [id number] ? ___ Procedure: ? Colonoscopy Indications: ? [...] preparation was ? evaluated using the BBPS ([place] ? Bowel Preparation Scale) with scores ? [...] PROVATION 07/18/2019 2:20 PM EST Jessica Mohamud EFFICIENCY MINER BLASTING GENERAL SURGICAL ORDERABLES PROVATION documented in this [...] documented in this encounter Care Teams University Extension Specialist Relationship Specialty Start Date End Date Presley Santillan MD [address] [place] [address] PCP - General Internal Medicine 02/10/17 documented as of this encounter
--- OUTSIDE RECORDS SUMMARY | 2024-05-03 17:32 | XMS_ITS | Encounter Summary ---
Author Organization Formerly [facility] [place] [address] Care Team Providers Care Casing Crew Pusher Name Role Phone Presley Santillan MD Primary Care Provider [phone] Reason for Visit * Reason Onset Date Comments Labs Only 05/04/2017 Patient calling to have lab results Encounter Details Date Type Department Care Team (Late st Contact Info) Description 05/04/2017 Telephone Hematology/Oncology at [address] [phone] Geovanna Quintero RN Labs Only [...] PM EST Patient had labs today at [facility] and was asking for results. Normal lab values reported to patient. Patient satisfied with exchange. documented in this encounter Plan of Treatment Not on file documented as of this encounter Visit Diagnoses Not on filedocumented in this encounter Care Teams Casing Crew Pusher Relationship Specialty Start Date End Date Presley Santillan MD [address] [place] [address] PCP - General Internal Medicine 02/10/17 documented as of this encounter
--- OUTSIDE RECORDS SUMMARY | 2024-05-03 17:32 | XMS_ITS | Encounter Summary ---
Author Organization [facility] [place] [address] Care Team Providers Care Customer Relationship Specialist Name Role Phone Presley Santillan MD Primary Care Provider [phone] Reason for Visit * Reason Onset Date Comments Labs Only 05/25/2017 lab tracking Encounter Details Date Type Department Care Team (Late st Contact Info) Description 05/25/2017 Telephone Hematology/Oncology at [address] [phone] Anamaria Lamas RN Labs Only [...] PM EST LAB TRACKING Daniela Sharon Gardner [id number] Diagnosis: ITP Labs ordered: every 3 weeks [...] 12.1/34.8 129k 8.18 2nd Rituxan given 03/18 [facility] 03/2403/06/17 11.59 11.8/35.4 166k 9.67 1st rituxan given 03/11 [facility] 03/16 documented in this encounter Plan of Treatment Not on file documented as of this encounter Visit Diagnoses Not on filedocumented in this encounter Care Teams Customer Relationship Specialist Relationship Specialty Start Date End Date Presley Santillan MD [address] [place] [address] PCP - General Internal Medicine 02/10/17 documented as of this encounter
--- OUTSIDE RECORDS SUMMARY | 2024-05-03 17:32 | XMS_ITS | Encounter Summary ---
Author Organization [facility] [place] [address] Care Team Providers Care Card Grinder Name Role Phone Presley Santillan MD Primary Care Provider Reason for Visit * Reason Onset Date Comments Labs Only 07/08/2017 Lab Tracking Encounter Details Date Type Department Care Team (Late st Contact Info) Description 07/08/2017 Telephone Hematology Oncology at [address] [phone] Carlita Hoskins RN Labs Only [...] 4:00 PM EST LAB TRACKING Daniela Gardner [id number] Diagnosis: ITP Labs ordered: every 4 weeks [...] 5.45 Had bruising on knees and elbows [facility] 07/28/18 06/01/17 7.27 12.2/36.4 209k 3.86 Stopped dex [facility] 06/30/16 05/25/17 8.15 12.2/35.5 153k 5.21 Dex 40 mg 05/25-05/28 [facility] 06/1505/04/17 7.77 12.4/36.3 153k 4.74 Dex 40 mg 05/04-05/07 [facility] 05/2504/20/17 10.15 12.6/35.2 175k 5.67 Completed 4 days of dex 04/16/17 [facility] 05/04/17 04/10/17 10.44 12.3/36.1 112k 7.26 4ht cycle dex start 04/13. Prior to vs with Dr Whitfield on 04/2203/30/17 9.57 12.7/36.1 206k 5.04 4th Rituxan due03/31 Labs again on 04/0703/24/17 7.87 12/34.9 120k 5.13 3rd rituxan due 03/25 Labs again 03/31/17 03/16/17 11.79 12.1/34.8 129k 8.18 2nd Rituxan given 03/18 [facility] 03/2403/06/17 11.59 11.8/35.4 166k 9.67 1st rituxan given 03/11 [facility] 03/16 documented in this encounter Plan of Treatment Not on file documented as of this encounter Visit Diagnoses Not on filedocumented in this encounter Care Teams Card Grinder Relationship Specialty Start Date End Date Presley Santillan MD [address] [place] [address] PCP - General Internal Medicine 02/10/17 documented as of this encounter
--- OUTSIDE RECORDS SUMMARY | 2024-05-03 17:32 | XMS_ITS | Encounter Summary ---
Author Organization [facility] [place] [address] Care Team Providers Care Hose Seamer Name Role Phone Presley Santillan MD Primary Care Provider [phone] Reason for Visit * Reason Onset Date Comments Labs Only 12/01/2017 Encounter Details Date Type Department Care Team (Late st Contact Info) Description 12/01/2017 Telephone Hematology Oncology at [address] [phone] Kandis Hill I RN Labs [...] on filedocumented in this encounter Care Teams Hose Seamer Relationship Specialty Start Date End Date Presley Santillan MD [address] [place] [address] PCP - General Internal Medicine 02/10/17 documented as of this encounter
--- OUTSIDE RECORDS SUMMARY | 2024-05-03 17:32 | XMS_ITS | Encounter Summary ---
Author Organization [facility] Address [facility] [place] [address] Care Team Providers Care Acute Care Occupational Therapist Name Role Phone Presley Santillan MD Primary Care Provider [phone] Encounter Details Date Type Department Care Team (Latest Contact Info) Description 04/18/2022 9:53 AM EDT - 04/18/2022 11:59 PM EDT Hospital Encounter Hematology [place] [phone] Easy bruising Discharge Disposition: Home Social History [...] AM EDT Easy bruising PLATELET FUNCTION TEST ([facility]) Routine 04/18/2022 10:10 AM EDT Easy bruising FIBRINOGEN Routine 04/18/2022 10:10 AM EDT Easy bruising FACTOR 8 ASSAY Routine 04/18/2022 10:10 AM EDT Easy bruising HC THYROID STIMULATING HORMONE, SERUM Routine 04/18/2022 10:10 AM EDT Easy bruising BLEEDING SCREEN INTERPRETATION Routine 04/18/2022 9:58 AM EDT documented in this encounter Results * Type and Screen Validity (04/18/2022 10:10 AM EDT) Pathologist [facility] T&S only valid at [facility]ORATORY Comment:This Type and Screen result is only valid at the [facility] Blood 04/18/2022 10:1 0 AM EDT 04/18/2022 10:16 AM EDT Narrative Resulting Agency Comment Spec In Lab Marshar Evelyn DIXON BLOOD BANK LAB ORDER ALBERTA [facility] [place] [address] * Differential, Automated (04/18/2022 10:10 AM EDT) Neutrophil % 75.8 % [facility] Neutrophil Absolute 5.63 1.70 - 6.10 x10(3)/[facility] Lymph % 18.0 % [facility] Lymphocytes Abs 1.3 0.9 - 3.2 x10(3)/[facility] Monocyte % 4.8 % [facility] Monocyte Abs 0.4 0.3 - 0.9 x10(3)/[facility] Eos % 0.8 % [facility] Eosinophils Abs 0.1 0.0 - 0.4 x10(3)/[facility] Basophil % 0.5 % [facility] Baso Absolute 0.0 0.0 - 0.1 x10(3)/[facility] Immature Gran % 0.10 % [facility] Comment: Immature granulocytes(IG's)percentage and absolute count will include metamyelocytes, myelocytes, and promyelocytes. Blood smears from CBCs yielding IG's will be scanned manually for concordance. If this scan disagrees with the automated IG or if promyelocytes are noted, a manual differential will be performed. Immature Gran Absolute 0.01 0.00 - 0.04 x10(3)/[facility] Blood 04/18/2022 10:1 0 AM EDT 04/18/2022 10:32 AM EDT Narrative Resulting Agency Comment Spec In Lab Samer Evelyn DIXON HEMATOLOGY ORDERABLE S [facility] [place] [address] * Hemogram (04/18/2022 10:10 AM EDT) White Blood Cell 7.4 4.0 - 9.5 x10(3)/[facility] Red Blood Cell 4.26 4.00 - 5.21 x10(6)/[facility] Hemoglobin 13.4 11.7 - 15.5 g/dL [facility] Hematocrit 38.7 35.7 - 45.8 % [facility] Mean Cell Volume 90.8 82.6 - 94.4 fL [facility] Mean Cell Hemoglobin 31.5 27.1 - 32.0 pg [facility] Mean Cell Hemoglobin Concentration 34.6 31.7 - 35.0 g/dL [facility] Platelet 215 145 - 357 x10(3)/[facility] RDW Standard Deviation 40.0 37.0 - 46.0 fL [facility] RDW coefficient of variation 12.0 11.5 - 14.1 % [facility] Mean Platelet Volume 10.8 7.6 - 12.9 fL [facility] NRBC% auto 0.0 % [facility] NRBC Absolute 0.000 0.000 - 0.000 x10(3)/[facility] Blood 04/18/2022 10:1 0 AM EDT 04/18/2022 10:32 AM EDT Narrative Resulting Agency Comment Spec In Lab Samer Evelyn DIXON HEMATOLOGY ORDERABLE S Performing Organization Address City/State/[facility] Co de Phone Number [facility] [place] [address] * Platelet function analysis ([facility]) (04/18/2022 10:10 AM EDT) Col/Epi 112 90 - 160 sec [facility] Comment: The PFA-100 test result is [...] hereditary or acquired qualitative platelet disorder, though longterm aspirin treatment may sometimes cause a modestly [...] Narrative Resulting Agency Comment Spec In Lab [facility] HEMATOLOGY ORDERABLE S Performing Organization Address [facility] [address] [facility] Co de Phone Number [facility] [place] [address] * Von Willebrand Factor Antigen (04/18/2022 10:10 AM EDT) von Willebrand Factor Antigen 92 % [facility] Comment: ABO blood group [...] Narrative Resulting Agency Comment Spec In Lab [facility] HEMATOLOGY ORDERABLE S Performing Organization Address [facility] Co de Phone Number [facility] [place] [address] * Von Willebrand Factor Activity (04/18/2022 10:10 AM EDT) Von Willebrand Factor Assay 77 % activity [facility] Comment: ABO blood group has a significant influence on vWF activity levels in normal individuals. Type O has a range of 40 ? 126%. Type A, B, and AB have a range of 49 - 163%. Blood 04/18/2022 10:1 0 AM EDT 04/18/2022 11:56 AM EDT Narrative Resulting Agency Comment Spec In Lab [facility] HEMATOLOGY ORDERABLE S [facility] [place] [address] * Factor 8 assay (04/18/2022 10:10 AM EDT) [facility] Factor VIII Assay 81 50 - 150 % [facility] Blood 04/18/2022 10:1 0 AM EDT 04/18/2022 11:56 AM EDT Narrative Resulting Agency Comment Spec In Lab Samekaty Rivas DO HEMATOLOGY ORDERABLE S Performing Organization Address City/[facility] [address]/ZIP Co de Phone Number [facility] [place] [address] * Fibrinogen (04/18/2022 10:10 AM EDT) [facility] Fibrinogen 308 200 - 393 mg/dL [facility] Comment: A fibrinogen level >100 mg/dL is adequate for hemostasis in most patients without underlying bleeding disorders. Blood 04/18/2022 10:1 0 AM EDT 04/18/2022 11:56 AM EDT Narrative Resulting Agency Comment Spec In Lab Guille Rivas DO HEMATOLOGY ORDERABLE S Performing Organization Address [facility] [address]/ZIP Co de Phone Number [facility] [place] [address] * Thrombin time (04/18/2022 10:10 AM EDT) [facility] Thrombin Time 15 10 - 17 sec [facility] Comment: Specimen drawn more than one [...] DO HEMATOLOGY ORDERABLE S Performing Organization Address City/[facility] [address]/ZIP Co de Phone Number [facility] [place] [address] * APTT (04/18/2022 10:10 AM EDT) Partial Thromboplastin Time 34 25 - 37 sec [facility] Comment: The PTT is NOT appropriate for heparin monitoring. Use the Anti-Xa level for heparin monitoring (HEP UFH) or LMWH monitoring (HEP LMW). A PTT less than 37 seconds generally indicates adequate hemostasis. Blood 04/18/2022 10:1 0 AM EDT 04/18/2022 11:56 AM EDT Narrative Resulting Agency Comment Spec In Lab Guille Rivas DO HEMATOLOGY ORDERABLE S Performing Organization Address [facility] [address]/[facility] Co de Phone Number [facility] [place] [address] * Prothrombin Time (04/18/2022 10:10 AM EDT) Prothrombin Time 11.5 9.4 - 12.5 sec [facility] International Normalization Ratio 1.0 [facility] Comment: An INR <2.0 indicates [...] DO HEMATOLOGY ORDERABLE S Performing Organization Address City/[facility] [address]/ZIP Co de Phone Number [facility] [place] [address] * TSH (04/18/2022 10:10 AM EDT) Thyroid Stimulating Hormone 1.07 0.27 - 4.20 mcIU/mL [facility] Comment: Reference Interval (mcIU/mL): Females: ??First Trimester: 0.23-3.88 ??Second Trimester: 0.22-3.90 ??Third Trimester: 0.44-4.66 Blood 04/18/2022 10:1 0 AM EDT 04/18/2022 10:32 AM EDT Narrative Resulting Agency Comment Spec In Lab Samira Oneill MD CHEMISTRY ORDERABL ES Performing Organization Address [facility] [address]/ZIP Co de Phone Number [facility] [place] [address] * ABORh Type Manual (04/18/2022 10:10 AM EDT) Expires at [id number] on: 04/21/2022 [facility] ABORH Type A Pos [facility] Blood 04/18/2022 10:1 0 AM EDT 04/18/2022 10:16 AM EDT Narrative Resulting Agency Comment Spec In Lab Samira Oneill MD BLOOD BANK LAB ORD ERABLES Performing Organization Address [facility] [address]/ZIP Co de Phone Number [facility] [place] [address] * Bleeding Screen Report (04/18/2022 9:58 AM EDT) Bleeding Screen Report [id number] ? Location: 3K The signing pathologist has [...] Richards Verified: ??04/22/2022 10:07 ??Pathologist Performed at: ??-[facility] Dept. of Pathology, [place], [place] ADDITIONAL STUDIES See Epic for laboratory values. Platelet morphology: Normal ABO Type: A _ PFA-100 platelet function studies can only be performed on blood collected on site at the [facility] facility and are not performed when platelet aggregation studies performed concurrently. The PFA-100 Col/ADP is not performed when PFA-100 Col/EPI is normal. CLINICAL INFORMATION 31 y/o female with history of life long extensive easy bruising. No relevant family history. No antiplatelet or anticoagulant medications. [facility] 04/18/2022 9:58 AM EDT Samer Evelyn DIXON HEMATOLOGY ORDERABLE S [facility] [place] [address] documented in this encounter Visit Diagnoses Diagnosis Easy bruising Other symptoms involving skin and integumentary tissues documented in this encounter Care Teams Acute Care Occupational Therapist Relationship Specialty Start Date End Date Presley Santillan MD [address] [place] [address] PCP - General Internal Medicine 02/10/17 documented as of this encounter
--- OUTSIDE RECORDS SUMMARY | 2024-05-03 17:32 | XMS_ITS | Encounter Summary ---
Author Organization [facility] [place] [address] Care Team Providers Care Securities Research Analyst Name Role Phone Presley Santillan MD Primary Care Provider [phone] Reason for Visit * Reason Onset Date Comments Labs Only 06/01/2017 Encounter Details Date Type Department Care Team (Late st Contact Info) Description 06/01/2017 Telephone Hematology/Oncology at [address] [phone] Anamaria Lamas RN Labs Only [...] on filedocumented in this encounter Care Teams Securities Research Analyst Relationship Specialty Start Date End Date Presley Santillan MD [address] [place] [address] PCP - General Internal Medicine 02/10/17 documented as of this encounter
--- OUTSIDE RECORDS SUMMARY | 2024-05-03 17:32 | XMS_ITS | Encounter Summary ---
Author Organization [facility] [place] [address] Care Team Providers Care Leather Piece Inspector Name Role Phone Presley Santillan MD Primary Care Provider [phone] Reason for Visit * Reason Onset Date Comments Labs Only 05/05/2017 Encounter Details Date Type Department Care Team (Late st Contact Info) Description 05/05/2017 Telephone Hematology Oncology at [address] [phone] Kandis Hill RN Labs Only [...] AM EST Patient had labs today at [facility] and was asking for results. Normal lab values reported to patient. Patient satisfied with exchange. documented in this encounter Plan of Treatment Not on file documented as of this encounter Visit Diagnoses Not on filedocumented in this encounter Care Teams Leather Piece Inspector Relationship Specialty Start Date End Date Presley Santillan MD [address] [place] [address] PCP - General Internal Medicine 02/10/17 documented as of this encounter
--- OUTSIDE RECORDS SUMMARY | 2024-05-03 17:32 | XMS_ITS | Encounter Summary ---
Author Organization [facility] Address [facility] [place] [address] Care Team Providers Care Bankman Name Role Phone Presley Santillan MD Primary Care Provider Encounter Details Date Type Department Care Team (Late st Contact Info) Description 09/23/2017 3:30 PM EDT Office Visit Hematology/Oncolog y at [address] [phone] Mercedez Whitfield MD [facility] DR HEMATOLOGY [place] [address] Idiopathic thrombocytopenic purpura Social History Tobacco Use [...] purpura documented in this encounter Care Teams Bankman Relationship Specialty Start Date End Date Presley Santillan MD [address] [place] [address] PCP - General Internal Medicine 02/10/17 documented as of this encounter
--- OUTSIDE RECORDS SUMMARY | 2024-05-03 17:32 | XMS_ITS | Encounter Summary ---
Author Organization [facility] [address] Care Team Providers Care Product Marketing Consultant Name Role Phone Presley Santillan MD Primary Care Provider [phone] Reason for Visit * Reason Onset Date Comments Labs Only 10/22/2017 lab tracking Encounter Details Date Type Department Care Team (Late st Contact Info) Description 10/22/2017 Telephone Hematology/Oncology at [address] [address] Anamaria Lamas RN Labs Only [...] - 10/22/2017 9:09 AM EDT LAB TRACKING Yanteh Gardner [id number] Diagnosis: ITP Labs ordered: every 4 weeks [...] 5.45 Had bruising on knees and elbows [facility] 07/28/18 06/01/17 7.27 12.2/36.4 209k 3.86 Stopped dex [facility] 06/30/16 05/25/17 8.15 12.2/35.5 153k 5.21 Dex 40 mg 05/25-05/28 [facility] 06/1505/04/17 7.77 12.4/36.3 153k 4.74 Dex 40 mg 05/04-05/07 [facility] 05/2504/20/17 10.15 12.6/35.2 175k 5.67 Completed 4 days of dex 04/16/17 [facility] 05/04/17 04/10/17 10.44 12.3/36.1 112k 7.26 4ht cycle dex start 04/13. Prior to vs with Dr Whitfield on 04/2203/30/17 9.57 12.7/36.1 206k 5.04 4th Rituxan due03/31 Labs again on 04/0703/24/17 7.87 12/34.9 120k 5.13 3rd rituxan due 03/25 Labs again 03/31/17 03/16/17 11.79 12.1/34.8 129k 8.18 2nd Rituxan given 03/18 [facility] 03/2403/06/17 11.59 11.8/35.4 166k 9.67 1st rituxan given 03/11 [facility] 03/16 documented in this encounter [...] on filedocumented in this encounter Care Teams Product Marketing Consultant Relationship Specialty Start Date End Date Presley Santillan MD [address] [place] [address] PCP - General Internal Medicine 02/10/17 documented as of this encounter
--- OUTSIDE RECORDS SUMMARY | 2024-05-03 17:32 | XMS_ITS | Encounter Summary ---
Author Organization [facility] Address [facility] [place] [address] Care Team Providers Care Biometric Technician Name Role Phone Presley Santillan MD [...] Expiration Date Visits Re quested Visits Authorized [id number] 1 1 Encounter Details Date Type Department Care Team (Late st Contact Info) Description 06/25/2017 11:00 AM EST - 06/25/2017 12:00 PM EST [place] [address] Marino Smith MD [facility] [place] [address] COLONOSCOPY, DIAGNOSTIC (WRVU 3.26) Social History Tobacco [...] to be checked. Thursday-Thursday Same Day Endo [phone] 7a-8p Otherwise contact [phone] and ask to speak to the human services manager breed to wean production technician Follow up care is a calvillo part [...] as of this encounter H&P Notes * Mraino Smith MD - 06/25/2017 10:29 AM EST [...] Other (See Comments) MAKES ME RESTLESS ??? [place] Other (See Comments) Abdominal pain ??? Cis [...] PM EST 06/25/2017 1:20 PM EST Narrative [facility] - 06/25/2017 1:20 PM EST Specimen requisition ordered. ??Separate Pathology report to follow Resulting Agency Comment Spec In Lab Marino Smith MD PATHOLOGY/CYTOLOG Y ORDERABLES Performing Organization Address City/[facility]/ZIP Co de Phone Number [facility] [place] [address] * Specimen to Pathology (surgical or derm) (06/25/2017 12:18 PM EST) AP Specimen 06/25/2017 12:1 8 PM EST 06/25/2017 1:20 PM EST Narrative [facility] - 06/25/2017 1:20 PM EST Specimen requisition ordered. ??Separate Pathology report to follow Resulting Agency Comment Spec In Lab Marino Smith MD PATHOLOGY/[place] [address] * Specimen to Pathology (surgical or derm) (06/25/2017 12:18 PM EST) AP Specimen 06/25/2017 12:1 8 PM EST 06/25/2017 1:20 PM EST Narrative [facility] - 06/25/2017 1:20 PM EST Specimen requisition ordered. ??Separate Pathology report to follow Resulting Agency Comment Spec In Lab Marino Smith MD PATHOLOGY/CYTOLOG Y ORDERABLES Performing Organization Address [facility] [[email or web address]] [place] [address] * Specimen to Pathology (surgical or derm) (06/25/2017 12:18 PM EST) AP Specimen 06/25/2017 12:1 8 PM EST 06/25/2017 1:20 PM EST Narrative [facility] - 06/25/2017 1:20 PM EST Specimen requisition ordered. ??Separate Pathology report to follow Resulting Agency Comment Spec In Lab Marino Smith MD PATHOLOGY/CYTOLOG Y ORDERABLES Performing Organization Address [facility] [[email or web address]] [place] [address] * Specimen to Pathology (surgical or derm) (06/25/2017 12:18 PM EST) AP Specimen 06/25/2017 12:1 8 PM EST 06/25/2017 1:20 PM EST Narrative [facility] - 06/25/2017 1:20 PM EST Specimen requisition ordered. ??Separate Pathology report to follow Resulting Agency Comment Spec In Lab Marino Smith MD PATHOLOGY/CYTOLOG Y ORDERABLES Performing Organization Address [facility] [[email or web address]] [place] [address] * Surgical Pathology Report (06/25/2017 12:17 PM EST) Final Diagnosis [id number] ? Location: 4T; EA09; A The signing [...] Oshea MD Verified: ??06/26/2017 ?Pathologist Performed at: ??[facility], [place], [place] CLINICAL INFORMATION Specimen Submitted: A - [...] sing: (T1) ??ejr 06/26/2017 4:03 PM EST [facility] GI Biopsy 06/25/2017 12:1 7 PM [...] MD PATHOLOGY/CYTOLOG Y ORDERABLES Performing Organization Address City/State/[facility] [[email or web address]] Co de Phone Number [facility] [place] [address] * UPPER GI ENDOSCOPY (06/25/2017 11:27 AM EST) UPPER GI ENDOSCOPY [facility] Procedure Date: 06/25/2017 11:27 AM ? Patient Name: Daniela Gardenr ? N: [id number] ? Date of : 1990 ? Age: 26 ? Order #: [id number] ? Instrument Name: [id number] ? Procedure: ? Upper GI endoscopy Indications: [...] * COLONOSCOPY (06/25/2017 11:25 AM EST) COLONOSCOPY [facility] Procedure Date: 06/25/2017 11:25 AM ? Patient Name: Daniela Gardner ? N: [id number] ? Date of : 1990 ? Age: 26 ? Order #: [id number] ? Instrument Name: [id number] ? Procedure: ? Colonoscopy Indications: ? Upper [...] preparation was evaluated using ? the BBPS (P[place] Bowel Preparation ? Scale) with scores of: [...] CRNA) documented in this encounter Care Teams Biometric Technician Relationship Specialty Start Date End Date Presley Santillan MD [address] [place] [address] PCP - General Internal Medicine 02/10/17 documented as of this encounter
--- OUTSIDE RECORDS SUMMARY | 2024-05-03 17:32 | XMS_ITS | Encounter Summary ---
Author Organization [facility] Address [facility] [place] [address] Care Team Providers Care Golf Superintendent Name Role Phone Presley Santillan MD Primary Care Provider Encounter Details Date Type Department Care Team (Late st Contact Info) Description 12/20/2018 Orders Only Hematology/Oncology at [address] [phone] Mercedez Whitfield MD [facility] [address] [place] [address] Idiopathic thrombocytopenic purpura Social History Tobacco Use [...] purpura documented in this encounter Care Teams Golf Superintendent Relationship Specialty Start Date End Date Presley Santillan MD [address] [place] [address] PCP - General Internal Medicine 02/10/17 documented as of this encounter
--- OUTSIDE RECORDS SUMMARY | 2024-05-03 17:32 | XMS_ITS | Encounter Summary ---
Author Organization [facility] [place] [address] Care Team Providers Care Exterminator Helper Termite Name Role Phone Presley Santillan MD Primary Care Provider Encounter Details Date Type Department Care Team (Late st Contact Info) Description 12/02/2017 External Results Hematology [place] [phone] Mercedez Whitfield MD [facility] DR [place] [address] Social History Tobacco Use Types Packs/Day Years [...] on filedocumented in this encounter Care Teams Exterminator Helper Termite Relationship Specialty Start Date End Date Presley Santillan MD [address] [place] [address] PCP - General Internal Medicine 02/10/17 documented as of this encounter
--- OUTSIDE RECORDS SUMMARY | 2024-05-03 17:32 | XMS_ITS | Encounter Summary ---
Author Organization [facility] [place] [address] Care Team Providers Care Head Filter Tank Tender Helper Name Role Phone Presley Santillan MD Primary Care Provider Reason for Visit * Reason Onset Date Comments Labs Only 06/17/2018 lab tracking Encounter Details Date Type Department Care Team (Late st Contact Info) Description 06/17/2018 Telephone Hematology/Oncology at [address] [phone] Anamaria Lamas RN Labs Only [...] 2:34 PM EST LAB TRACKING Yaneth Gardner [id number] Diagnosis: ITP Labs ordered: every 3 months [...] on filedocumented in this encounter Care Teams Head Filter Tank Tender Helper Relationship Specialty Start Date End Date Presley Santillan MD [address] [place] [address] PCP - General Internal Medicine 02/10/17 documented as of this encounter
--- OUTSIDE RECORDS SUMMARY | 2024-05-03 17:32 | XMS_ITS | Encounter Summary ---
Author Organization [facility] [place] [address] Care Team Providers Care Automation Control Technician Name Role Phone Presley Santillan MD Primary Care Provider [phone] Encounter Details Date Type Department Care Team (Late st Contact Info) Description 06/27/2022 2:00 PM EST Office [place] [address] Daniela Justin MD [facility] [place] [address] Carpal tunnel syndrome, bilateral Social History Tobacco [...] syndrome documented in this encounter Care Teams Automation Control Technician Relationship Specialty Start Date End Date Presley Santillan MD [address] [place] [address] PCP - General Internal Medicine 02/10/17 documented as of this encounter
--- OUTSIDE RECORDS SUMMARY | 2024-05-03 17:32 | XMS_ITS | Encounter Summary ---
Author Organization [facility] [place] [address] Care Team Providers Care Retail Wireless Sales Representative Name Role Phone Presley Santillan MD Primary Care Provider [phone] Reason for Visit * Reason Onset Date Comments Labs Only 09/23/2017 lab tracking Encounter Details Date Type Department Care Team (Late st Contact Info) Description 09/23/2017 Telephone Hematology/Oncology at [address] [phone] Anamaria Lamas RN Labs Only [...] Telephone Encounter - Anamaria Lamas RN - 09/23/2017 4:28 PM EDT LAB TRACKING Yaneth Gardner [id number] Diagnosis: ITP Labs ordered: every 4 weeks [...] 06/01/17 7.27 12.2/36.4 209k 3.86 Stopped dex [facility] 06/30/16 05/25/17 8.15 12.2/35.5 153k 5.21 Dex 40 mg 05/25-05/28 [facility] 06/1505/04/17 7.77 12.4/36.3 153k 4.74 Dex 40 mg 05/04-05/07 [facility] 05/2504/20/17 10.15 12.6/35.2 175k 5.67 Completed 4 days of dex 04/16/17 [facility] 05/04/17 04/10/17 10.44 12.3/36.1 112k 7.26 4ht [...] on filedocumented in this encounter Care Teams Retail Wireless Sales Representative Relationship Specialty Start Date End Date Presley Santillan MD [address] [place] [address] PCP - General Internal Medicine 02/10/17 documented as of this encounter
--- OUTSIDE RECORDS SUMMARY | 2024-05-03 17:32 | XMS_ITS | Encounter Summary ---
Author Organization [facility] Address [facility] [place] [address] Care Team Providers Care Automobile Rental Agent Name Role Phone Presley Santillan MD Primary Care Provider [phone] Encounter Details Date Type Department Care Team [...] in a prison (including now)? No 04/18/2022 Sex and Gender Information Value Date Recorded Sex Assigned at Not on file Gender Identity Not on file Sexual Orientation Not on file documented as of this encounter Plan of Treatment Not on file documented as of this encounter Visit Diagnoses Not on filedocumented in this encounter Care Teams Automobile Rental Agent Relationship Specialty Start Date End Date Presley Santillan MD [address] [place] [address] PCP - General Internal Medicine 02/10/17 documented as of this encounter
--- OUTSIDE RECORDS SUMMARY | 2024-05-03 17:32 | XMS_ITS | Encounter Summary ---
Author Organization [facility] Address [facility] [place] [address] Care Team Providers Care Fire Equipment Repairer Inspector Name Role Phone Presley Santillan MD Primary Care Provider Reason for Visit * Consultation (Routine) - Closed Specialty Diagnoses / Procedures Referred By Daryl sargent Referred To Contact Plastic Surgery Diagnoses Bilateral carpal tunnel syndrome bilateral carpal tunnel syndrome- for PNF clinic Yovani Negro MD [address] [place] [address] [facility] [address] [place] [address] Referral ID Status Reason Start Date Expiration Date Visits Re quested Visits Authorized [id number] Closed 04/29/2022 04/29/2023 1 1 Encounter Details Date Type Department Care Team (Late st Contact Info) Description 06/27/2022 1:45 PM EST Office [place] [address] Christian Haynes MD [facility] [place] [address] Carpal tunnel syndrome, bilateral Social History Tobacco [...] in a usp (including now)? No 04/18/2022 Sex and Gender [...] brush. DO NOT wear any rings, nail cymro or artifical nails. The Same Day Surgery [...] to your surgery. Day of Surgery A pack train driver is required at time of discharge. [...] pm) For an appointment or insurance questions For questions pertaining to your surgical date [phone] For nursing related questions [phone] On weekends, holidays or after office hours: Call and ask the lap winding machine operator to page the Plastic Surgery Resident vanstone machine operator. documented in this encounter Progress Notes * Christian Haynes MD - 06/27/2022 1:45 PM EST Plastic Surgery Consultation Note (Peripheral Nerve Clinic) Provider(s): Christian Haynes/Daniela Justin M.D. CC: S/p bilateral carpal tunnel releases HPI: Daniela Ruiz is a 31 y.o. female who presents to [facility] to discuss her concerns for ongoing issues [...] to understand her options. 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 Past Surgical History: Procedure Laterality Date ??? PRO COLONOSCOPY, BIOPSY N/A 07/18/2019 COLONOSCOPY FLEXIBLE, WITH BX (WRVU 3.66) performed by Marino Smith MD at [facility] ENDOSCOPY ??? PRO COLONOSCOPY, DIAGNOSTIC N/A 06/25/2017 COLONOSCOPY, DIAGNOSTIC performed by Marino Smith MD at [facility] ENDOSCOPY ??? PRO UPPER GI ENDOSCOPY, DIAGNOSTIC N/A 06/25/2017 EGD, UPPER GI ENDOSCOPY performed by Marino Smith MD at [facility] ENDOSCOPY Social History Socioeconomic History ??? [...] Other (See Comments) MAKES ME RESTLESS ??? [place] Other (See Comments) Abdominal pain ??? Cis [...] exploration, nerve repair and fat grafting CPT: 05205,42641, [address] Surgical site: right Side: wrist Anesthesia: General [...] syndrome documented in this encounter Care Teams Fire Equipment Repairer Inspector Relationship Specialty Start Date End Date Presley Santillan MD [address] [place] [address] PCP - General Internal Medicine 02/10/17 documented as of this encounter
--- OUTSIDE RECORDS SUMMARY | 2024-05-03 17:32 | XMS_ITS | Encounter Summary ---
[place] [address] Care Team Providers Care Director Of Broadcast Name Role Phone Presley Santillan MD Primary Care Provider Reason for Referral * Consultation (Routine) - Closed Specialty Diagnoses / Procedures Referred By Contac t Referred To Contact Hematology and Oncology Diagnoses Immune thrombocytopenic purpura Cora Robles APRN [address] [place] [address] [facility] [address] [place] [address] Referral ID Status Reason Start Date Expiration Date V isits Requested Visits Authorized [id number] Closed Consult, Test & Treat PCP Updated and/or Approved 12/25/2021 12/25/2022 1 1 Encounter Details Date Type Department Care Team (Latest Contact Info) Description 12/25/2021 Transcribe Orders eDH Incoming Referrals [phone] Cora Robles APRN [address] [place] [address] Immune thrombocytopenic purpura Social History [...] purpura documented in this encounter Care Teams Director Of Broadcast Relationship Specialty Start Date End Date Presley Santillan MD [address] [place] [address] PCP - General Internal Medicine 02/10/17 documented as of this encounter
--- OUTSIDE RECORDS SUMMARY | 2024-05-03 17:32 | XMS_ITS | Encounter Summary ---
Author Organization [facility] [address] Care Team Providers Care Order Entry Technician Name Role Phone Presley Santillan MD Primary Care Provider Encounter Details Date Type Department Care Team (Late st Contact Info) Description 06/23/2017 Telephone Hematology/Oncology at [address] [phone] Yusra Troy Social History Tobacco [...] on filedocumented in this encounter Care Teams Order Entry Technician Relationship Specialty Start Date End Date Presley Santillan MD [address] [place] [address] PCP - General Internal Medicine 02/10/17 documented as of this encounter
--- OUTSIDE RECORDS SUMMARY | 2024-05-03 17:32 | XMS_ITS | Encounter Summary ---
Author Organization [facility] [place] [address] Care Team Providers Care Industrial Gas Servicer Helper Name Role Phone Presley Santillan MD Primary Care Provider Reason for Visit * Reason Onset Date Comments Labs Only 12/02/2017 Encounter Details Date Type Department Care Team (Late st Contact Info) Description 12/02/2017 Telephone [place]ology [place] [phone] Kandis Hill I, RN Labs Only Social [...] AM EDT LAB TRACKING Yaneth Herrera Jj [id number] Diagnosis: ITP Labs ordered: every 8 weeks [...] 5.45 Had bruising on knees and elbows [facility] 07/28/18 06/01/17 7.27 12.2/36.4 209k 3.86 Stopped dex [facility] 06/30/16 05/25/17 8.15 12.2/35.5 153k 5.21 Dex 40 mg 05/25-05/28 [facility] 06/1505/04/17 7.77 12.4/36.3 153k 4.74 Dex 40 mg 05/04-05/07 [facility] 05/2504/20/17 10.15 12.6/35.2 175k 5.67 Completed 4 days of dex 04/16/17 [facility] 05/04/17 04/10/17 10.44 12.3/36.1 112k [...] on filedocumented in this encounter Care Teams Industrial Gas Servicer Helper Relationship Specialty Start Date End Date Presley Santillan MD [address] [place] [address] PCP - General Internal Medicine 02/10/17 documented as of this encounter
--- OUTSIDE RECORDS SUMMARY | 2024-05-03 17:32 | XMS_ITS | Encounter Summary ---
Author Organization [facility] [place] [address] Care Team Providers Care Mri Tech Name Role Phone Presley Santillan MD Primary Care Provider [phone] Encounter Details Date Type Department Care Team (Late st Contact Info) Description 12/02/2017 Notes Only Hematology Oncology at [address] [phone] Kandis Hill RN Social History Tobacco Use [...] Patient's last name is now Joseph. Clinical Back Winder notified. documented in this encounter Plan of Treatment Not on file documented as of this encounter Visit Diagnoses Not on filedocumented in this encounter Care Teams Mri Tech Relationship Specialty Start Date End Date Presley Santillan MD [address] [place] [address] PCP - General Internal Medicine 02/10/17 documented as of this encounter
--- OUTSIDE RECORDS SUMMARY | 2024-05-03 17:32 | XMS_ITS | Encounter Summary ---
Author Organization [facility] Address [facility] [place] [address] Care Team Providers Care Account Manager Trainee Name Role Phone Presley Santillan MD Primary Care Provider Encounter Details Date Type Department Care Team (Latest Contact Info) Description 06/03/2017 9:00 AM EST Office Visit Hematology/Oncology at [address] [phone] Angeli Dao, SUPERVISOR HAIRSPRING FABRICATION [facility] [address] [place] [address] Idiopathic thrombocytopenic purpura Social History Tobacco Use [...] this encounter Progress Notes * Angeli Dao, SUPERVISOR HAIRSPRING FABRICATION - 06/03/2017 9:00 AM EST Subjective: Patient [...] purpura documented in this encounter Care Teams Account Manager Trainee Relationship Specialty Start Date End Date Presley Santillan MD [address] [place] [address] PCP - General Internal Medicine 02/10/17 documented as of this encounter
--- OUTSIDE RECORDS SUMMARY | 2024-05-03 17:33 | XMS_ITS | Encounter Summary ---
Author Organization [facility] [place] [address] Care Team Providers Care Wound Treatment Rn Name Role Phone Presley Santillan MD Primary Care Provider [phone] Encounter Details Date Type Department Care Team (Late st Contact Info) Description 03/05/2017 Telephone [place] [address] Litzy Barron, DRAW FRAME RUNNER [facility] [place] [address] Social History Tobacco Use Types Packs/Day Years [...] on filedocumented in this encounter Care Teams Wound Treatment Rn Relationship Specialty Start Date End Date Presley Santillan MD [address] [place] [address] PCP - General Internal Medicine 02/10/17 documented as of this encounter
--- OUTSIDE RECORDS SUMMARY | 2024-05-03 17:33 | XMS_ITS | Encounter Summary ---
Author Organization [facility] Address [address] [place] [address] Care Team Providers Care Janitor Head Name Role Phone Jessica Mohamud KOTA Primary Care Provider [phone] Encounter Details Date Type Department Care Team (Late st Contact Info) Description 12/26/2023 Lab Requisition [facility] Pathology & Laboratory Medicine - [address] [id number] Outr Resulting Lab, Provider Social History Tobacco [...] 20.3 See Note mIU/mL 12/28/2023 8:52 EDT [facility] Blood VENOUS BLOOD / Unknown 12/25/2023 12:10 EDT 12/26/2023 21:11 EDT Narrative [facility] - 12/28/2023 8:52 EDT NOTE: [...] & BLOOD GAS ORDERABLES Performing Organization Address [facility] de Phone Number [facility] [address] [place] [address] * ESTRADIOL, ADULTS (12/25/2023 12:10 EDT) [facility] Signature Estradiol 109 See Note pg/mL 12/26/2023 21:55 EDT [facility] Comment: NOTE: FEMALE REFERENCE RANGES: [...] & BLOOD GAS ORDERABLES Performing Organization Address [facility] de Phone Number [facility] [address] [place], [place] [address] documented in this encounter Visit Diagnoses Not on filedocumented in this encounter Care Teams Janitor Head Relationship Specialty Start Date End Date Jessica Mohamud APRN [address] [place] [address] PCP - General 01/19/19 documented as of this encounter
--- OUTSIDE RECORDS SUMMARY | 2024-05-03 17:33 | XMS_ITS | Encounter Summary ---
Author Organization [facility] [place] [address] Care Team Providers Care Medical Screener Name Role Phone Presley Santillan MD Primary Care Provider Reason for Visit * Reason Onset Date Comments Labs Only 03/31/2017 Lab Tracking Encounter Details Date Type Department Care Team (Late st Contact Info) Description 03/31/2017 Telephone Hematology Oncology at [address] [phone] Carlita Hoskins RN Labs Only [...] 11:17 AM EDT LAB TRACKING Daniela Gardner [id number] Diagnosis: ITP Labs ordered: weekly CBC Medications: [...] on filedocumented in this encounter Care Teams Medical Screener Relationship Specialty Start Date End Date Presley Santillan MD [address] [place] [address] PCP - General Internal Medicine 02/10/17 documented as of this encounter
--- OUTSIDE RECORDS SUMMARY | 2024-05-03 17:33 | XMS_ITS | Encounter Summary ---
Author Organization [facility] [place] [address] Care Team Providers Care Program Review Director Name Role Phone Presley Santillan MD Primary Care Provider Reason for Visit * Reason Comments Chemotherapy # 2 of 4 * Treatment/Therapy Plan Authorization (Routine) - Closed Specialty Diagnoses / Procedures Referred By Contac t Referred To Contact Hematology and Oncology Diagnoses Acute ITP Immune thrombocytopenic purpura Procedures TC RITUXIMAB, 100MG, INJECTION (RITUXAN) Yovani Fajardo MD [facility] [address] HEMATOLOGY [place] [address] [facility] Infusion [address] [place] [address] Referral ID Status Reason Start Date Expiration Date Visits Re quested Visits Authorized [id number] Closed 03/06/2017 03/06/2018 52 52 Encounter Details Date Type Department Care Team (Late st Contact Info) Description 03/18/2017 8:30 AM EDT Infusion Hematology Oncology at [address] [phone] Acute ITP Social History Tobacco Use Types [...] mg documented in this encounter Care Teams Program Review Director Relationship Specialty Start Date End Date Presley Santillan MD [address] [place] [address] PCP - General Internal Medicine 02/10/17 documented as of this encounter
--- OUTSIDE RECORDS SUMMARY | 2024-05-03 17:33 | XMS_ITS | Encounter Summary ---
Author Organization [facility] Address [facility] [place] [address] Care Team Providers Care Marina Manager Name Role Phone Presley Santillan MD Primary Care Provider Encounter Details Date Type Department Care Team (Latest Contact Info) Description 03/02/2017 8:42 AM EDT - 03/02/2017 8:44 AM EDT Hospital Encounter Laboratory [facility] [place] [phone] Alternating constipation and diarrhea; Abdominal pain, unspecified [...] Date/Time Associated Diagnosis Comments STOOL CULTURE SCREEN ([facility]/CGP/APD/NLH) Routine 03/02/2017 4:30 PM EDT Alternating constipation [...] 1 EIA Negative for Shiga Toxin 2 [facility] Stool specimen (specimen) 03/02/2017 4:30 PM EDT 03/03/2017 8:57 AM EDT Narrative Resulting Agency Comment Spec In Lab Litzy Barron APRN MICROBIOLOGY - NERAL ORDERABLES [facility] [place] [address] * Campylobacter Antigen (03/02/2017 4:30 PM EDT) Campylobacter Ag Immunoassay Negative for Campylobacter Antigen [facility] Stool specimen (specimen) 03/02/2017 4:30 PM EDT 03/03/2017 8:57 AM EDT Narrative Resulting Agency Comment Spec In Lab Litzy Barron CHEF'S ASSISTANT MICROBIOLOGY - GE NERAL ORDERABLES [facility] [place] [address] * Stool culture (03/02/2017 4:30 PM EDT) Stool Culture No enteric pathogens isolated [facility] Stool specimen (specimen) 03/02/2017 4:30 PM EDT 03/03/2017 8:57 AM EDT Narrative Resulting Agency Comment Spec In Lab Litzy Barron CHEF'S ASSISTANT MICROBIOLOGY - GE NERAL ORDERABLES Performing Organization Address [facility] de Phone Number [facility] [place] [address] * C. Difficile Screen (03/02/2017 4:30 PM EDT) C Diff Interp Negative Negative [facility] Comment: C. diff ??Negative Clostridium difficile is not present in the specimen. If patient is having diarrhea suspected to be from an infectious cause, then Contact Precautions are still required. Stool specimen (specimen) 03/02/2017 4:30 PM EDT 03/03/2017 8:57 AM EDT Narrative Resulting Agency Comment Spec In Lab Litzy Barron CHEF'S ASSISTANT MICROBIOLOGY - GE NERAL ORDERABLES Performing Organization Address City/[facility]/ZIP Co de Phone Number [facility] [place] [address] * Calprotectin (03/02/2017 4:30 PM EDT) Calprotectin <15.6 <=50.0 (Normal) [facility]/gm [facility] Comment: Test Performed by: [address] [address] Stool specimen (specimen) 03/02/2017 4:30 PM EDT 03/03/2017 9:19 AM EDT Narrative Resulting Agency Comment Spec In Lab Litzy Terrazasv CHEF'S ASSISTANT BODY FLUIDS AND S TOOLS ORDERABLES Performing Organization Address City/State/[place] Co de Phone Number [facility] [place] [address] documented in this encounter Visit Diagnoses Diagnosis Alternating constipation and diarrhea Other symptoms involving digestive system Abdominal pain, unspecified location documented in this encounter Care Teams Marina Manager Relationship Specialty Start Date End Date Presley Santillan MD [address] [place] [address] PCP - General Internal Medicine 02/10/17 documented as of this encounter
--- OUTSIDE RECORDS SUMMARY | 2024-05-03 17:33 | XMS_ITS | Encounter Summary ---
Author Organization [facility] [place] [address] Care Team Providers Care Sports Photographer Name Role Phone Presley Santillan MD Primary Care Provider Reason for Visit * Reason Comments Chemotherapy Cycle 1 Day 1 * Treatment/Therapy Plan Authorization (Routine) - Closed Specialty Diagnoses / Procedures Referred By Contac t Referred To Contact Hematology and Oncology Diagnoses Acute ITP Immune thrombocytopenic purpura Procedures TC RITUXIMAB, 100MG, INJECTION (RITUXAN) Yovani Fajardo MD [facility] [address] [place] [address] [facility] [address] [place] [address] Referral ID Status Reason Start Date Expiration Date Visits Re quested Visits Authorized [id number] Closed 03/06/2017 03/06/2018 52 52 Encounter Details Date Type Department Care Team (Late st Contact Info) Description 03/11/2017 10:30 AM EDT Infusion Hematology Oncology at [address] [phone] Acute ITP Social History Tobacco Use Types [...] gravity. Bp 114/71 HR 106 AAntonio Dao INDIAN BLANKET WEAVER in to see pt. States feeling better [...] mg documented in this encounter Care Teams Sports Photographer Relationship Specialty Start Date End Date Presley Santillan MD [address] [place] [address] PCP - General Internal Medicine 02/10/17 documented as of this encounter
--- OUTSIDE RECORDS SUMMARY | 2024-05-03 17:33 | XMS_ITS | Encounter Summary ---
Author Organization [facility] [place] [address] Care Team Providers Care Field Servicer Name Role Phone Presley Santillan MD Primary Care Provider [phone] Reason for Visit * Reason Onset Date Comments Labs Only 04/10/2017 Encounter Details Date Type Department Care Team (Late st Contact Info) Description 04/10/2017 Telephone Hematology Oncology at [address] [phone] Kandis Hill I, RN Labs [...] cycle of dex on Thursday. Daniela Gardner [id number] Diagnosis: ITP Labs ordered: weekly CBC Medications: Dex 40mg x 4 days Start Cycle #3 on 03/24 Rituxan infusions x4 Spoke with patient who reports that she is having bruising which started 2 days ago. Denies bleeding. Starts 4 cycle of dex on Thursday. Dr Whitfield reviewed results. NO change to plan. Repeat lab prior to vs with Dr Wihtfield. Date WBC HGB/HCT PLT ANC PLAN LABS 04/10/17 10.44 12.3/36.1 112k 7.26 4ht cycle dex start 04/13. Prior to vs with Dr Whitfield on 04/2203/30/17 9.57 12.7/36.1 206k 5.04 4th Rituxan due03/31 Labs again on 04/0703/24/17 7.87 12/34.9 120k 5.13 3rd rituxan due 03/25 Labs again 03/31/17 03/16/17 11.79 12.1/34.8 129k 8.18 2nd Rituxan given 03/18 [facility] 03/2403/06/17 11.59 11.8/35.4 166k 9.67 1st rituxan given 03/11 [facility] 03/16 documented in this encounter Plan of Treatment Not on file documented as of this encounter Visit Diagnoses Not on filedocumented in this encounter Care Teams Field Servicer Relationship Specialty Start Date End Date Presley Santillan MD [address] [place] [address] PCP - General Internal Medicine 02/10/17 documented as of this encounter
--- OUTSIDE RECORDS SUMMARY | 2024-05-03 17:33 | XMS_ITS | Encounter Summary ---
Author Organization [facility] [place] [address] Care Team Providers Care Adjunct Trainer Name Role Phone Presley Santillan MD Primary Care Provider Reason for Visit * Reason Onset Date Comments Labs Only 03/18/2017 Lab Tracking Encounter Details Date Type Department Care Team (Late st Contact Info) Description 03/18/2017 Telephone Hematology/Oncology at [address] [phone] Nolberto Monreal RN Labs Only (Lab Tracking) Social History [...] 8:45 AM EDT LAB TRACKING Daniela Gardner [id number] Diagnosis: ITP Labs ordered: weekly CBC Medications: [...] on filedocumented in this encounter Care Teams Adjunct Trainer Relationship Specialty Start Date End Date Presley Santillan MD [address] [place] [address] PCP - General Internal Medicine 02/10/17 documented as of this encounter
--- OUTSIDE RECORDS SUMMARY | 2024-05-03 17:33 | XMS_ITS | Encounter Summary ---
Author Organization [facility] Address [facility] [place] [address] Care Team Providers Care Manager Field Investigations Name Role Phone Presley Santillan MD Primary Care Provider [phone] Encounter Details Date Type Department Care Team (Late st Contact Info) Description 03/18/2017 8:00 AM EDT Office Visit Hematology/Oncolog y at [address] [phone] Mercedez Whitfield MD [facility] [address] HEMATOLOGY [place] [address] Angeli Dao, KOTA [facility] [address] HEMATOLOGY [place] [address] Acute ITP; Idiopathic thrombocytopenic purpura Social History [...] this encounter Progress Notes * Angeli Dao, EARLY HEAD START DIRECTOR - 03/18/2017 8:00 AM EDT Subjective: Patient [...] purpura documented in this encounter Care Teams Manager Field Investigations Relationship Specialty Start Date End Date Presley Santillan MD [address] [place] [address] PCP - General Internal Medicine 02/10/17 documented as of this encounter
--- OUTSIDE RECORDS SUMMARY | 2024-05-03 17:33 | XMS_ITS | Encounter Summary ---
Author Organization [facility] [place] [address] Care Team Providers Care Spirits Model Name Role Phone Presley Santillan MD Primary Care Provider Reason for Visit * Reason Onset Date Comments Labs Only 03/24/2017 Lab Tracking Encounter Details Date Type Department Care Team (Late st Contact Info) Description 03/24/2017 Telephone Hematology Oncology at [address] [phone] Carlita Hoskins RN Labs Only [...] 1:23 PM EDT LAB TRACKING Daniela Gardner [id number] Diagnosis: ITP Labs ordered: weekly CBC Medications: [...] on filedocumented in this encounter Care Teams Spirits Model Relationship Specialty Start Date End Date Presley Santillan MD [address] [place] [address] PCP - General Internal Medicine 02/10/17 documented as of this encounter
--- OUTSIDE RECORDS SUMMARY | 2024-05-03 17:33 | XMS_ITS | Encounter Summary ---
Author Organization [facility] Address [facility] [place] [address] Care Team Providers Care Tea Bag Packer Name Role Phone Presley Santillan MD Primary Care Provider [phone] Encounter Details Date Type Department Care Team (Late st Contact Info) Description 04/01/2017 9:30 AM EDT Office Visit Hematology/Oncolog y at [address] [phone] Mercedez Whitfield MD [facility] [address] [place] [address] Angeli Dao, KOTA [facility] [place] [address] Idiopathic thrombocytopenic purpura Social History Tobacco Use [...] this encounter Progress Notes * Angeli Dao, EPIC PRELUDE ANALYST - 04/01/2017 9:30 AM EDT Subjective: Patient [...] 166k 9.67 1st rituxan given 03/11 [facility] 03/16 BP 119/72 (Patient Position: Sitting) Pulse [...] 6 cycles to maximize her chance of longterm response. - she will discuss with her [...] purpura documented in this encounter Care Teams Tea Bag Packer Relationship Specialty Start Date End Date Presley Santillan MD [address] [place] [address] PCP - General Internal Medicine 02/10/17 documented as of this encounter
--- OUTSIDE RECORDS SUMMARY | 2024-05-03 17:33 | XMS_ITS | Encounter Summary ---
Author Organization [facility] Address [address] [place] [address] Care Team Providers Care Assistant Store Director Name Role Phone Jessica Mohamud KOTA Primary Care Provider [phone] Encounter Details Date Type Department Care Team (Late st Contact Info) Description 08/29/2021 Lab Requisition [facility] Pathology & Laboratory Medicine - [address] [phone] Outr Resulting Lab, Provider Social History Tobacco [...] Outr Resulting Lab MICROBIOLOGY - GENERAL ORDERABLES [facility] [address] [place] [address] * COVID-19 TESTING (08/28/2021 17:15 EST) COVID-19 rt-PCR Result Negative Negative 08/30/2021 12:19 EST [facility] Comment: This test has not [...] was performed using the ruddy SARS-CoV-2 assay ([employer] on the Ruddy 6800 System Performing Lab Ruddy [address] [facility] Lab 08/30/2021 12:19 EST [facility] Swab 08/28/2021 17:1 5 EST 08/29/2021 19:26 EST Provider Outr Resulting Lab MICROBIOLOGY - GENERAL ORDERABLES [facility] [address] [place] [address] documented in this encounter Visit Diagnoses Not on filedocumented in this encounter Care Teams Assistant Store Director Relationship Specialty Start Date End Date Jessica Mohamud APRN [address] [place] [address] PCP - General 01/19/19 documented as of this encounter
--- OUTSIDE RECORDS SUMMARY | 2024-05-03 17:33 | XMS_ITS | Encounter Summary ---
Author Organization [facility] [place] [address] Care Team Providers Care Manager Corporate Marketing Name Role Phone Presley Santillan MD Primary Care Provider Encounter Details Date Type Department Care Team (Late st Contact Info) Description 03/04/2017 Telephone Hematology/Oncology at [address] [phone] Solo Emmanuel Social History Tobacco [...] filedocumented in this encounter Care Teams Manager Corporate Marketing Relationship Specialty Start Date End Date Presley Santillan MD [address] [place] [address] PCP - General Internal Medicine 02/10/17 documented as of this encounter
--- OUTSIDE RECORDS SUMMARY | 2024-05-03 17:33 | XMS_ITS | Encounter Summary ---
Author Organization [facility] [place] [address] Care Team Providers Care Interior Horticulturist Name Role Phone Presley Santillan MD Primary Care Provider Encounter Details Date Type Department Care Team (Late st Contact Info) Description 03/12/2017 Telephone Hematology/Oncology at [address] [phone] Solo Emmanuel Social History Tobacco [...] on filedocumented in this encounter Care Teams Interior Horticulturist Relationship Specialty Start Date End Date Presley Santillan MD [address] [place] [address] PCP - General Internal Medicine 02/10/17 documented as of this encounter
--- OUTSIDE RECORDS SUMMARY | 2024-05-03 17:33 | XMS_ITS | Encounter Summary ---
Author Organization [facility] [place] [address] Care Team Providers Care Industrial Engineering Technologist Name Role Phone Presley Santillan MD Primary Care Provider [phone] Reason for Visit * Reason Onset Date Comments Illness 03/30/2017 I don't feel we ll Encounter Details Date Type Department Care Team (Late st Contact Info) Description 03/30/2017 Telephone Hematology/Oncology at [address] [phone] Geovanna Quintero, RN Illness (I [...] filedocumented in this encounter Care Teams Industrial Engineering Technologist Relationship Specialty Start Date End Date Presley Santillan MD [address] [place] [address] PCP - General Internal Medicine 02/10/17 documented as of this encounter
--- OUTSIDE RECORDS SUMMARY | 2024-05-03 17:33 | XMS_ITS | Encounter Summary ---
Author Organization [facility] [place] [address] Care Team Providers Care Harness Fitter Name Role Phone Presley Santillan MD Primary Care Provider [phone] Reason for Referral * Diagnostic Test (Routine) - Closed Specialty Diagnoses / Procedures Referred By Daryl sargent Referred To Contact Radiology Diagnoses Alternating constipation and diarrhea Abdominal pain, unspecified location Procedures MRI Enterography wwo Contrast Litzy Barron APRN [facility] [place] [address] [place] [address] Referral ID Status Reason Start Date Expiration Date V isits Requested Visits Authorized [id number] Closed Specialty Service Requested 04/06/2017 06/04/2017 1 1 Reason for Visit * Consultation (Routine) - Closed Specialty Diagnoses / Procedures Referred By Daryl sargent Referred To Contact Gastroenterology Diagnoses Colitis; suspected non-infectious colitis. Presley Santillan MD [address] [place] [address] [facility] [address] [place] [address] Referral ID Status Reason Start Date Expiration Date V isits Requested Visits Authorized [id number] Closed Consult, Test & Treat Connection Center 02/10/2017 02/10/2018 1 1 Encounter Details Date Type Department Care Team (Late st Contact Info) Description 02/17/2017 1:00 PM EDT Office Visit [place] [address] Litzy Barron, DINKEY SKINNER [facility] [place] [address] Abdominal pain, unspecified location; Alternating constipation and [...] this encounter Progress Notes * Litzy Barron, DINKEY SKINNER - 02/17/2017 1:00 PM EDT Department of [...] abdomen and pelvis- IV contrast only ( [facility] 02/05/17) Nonspecific colitis involving descending and sigmoid colon. Likely this is either infectious or inflammatory bowel disease. ? CT abdomen and pelvis (08/12/15) - taken from Dr. Goldsmith note Mild thickening of the wall of the descending and proximal sigmoid colon. This may be due to decompressed bowel versus nonspecific colitis. ? ENDOSCOPY ([facility], Dr. Matute): EGD 09/04/15: normal duodenum... The [...] No marrow signal abnormality. Procedure Note Raji Ngueyn MD - 04/20/2017 EXAMINATION: MRI ENTEROGRAPHY WWO [...] 04/20/2017 9:36 AM 9:36 AM Litzy Barron DIN[employer] SKINNER IMG MRI ORDERABLE S * (ABNORMAL) TSH (03/03/2017 8:59 AM EDT) Thyroid Stimulating Hormone 7.90(H) 0.27 - 4.20 mlU/ML [facility] Blood specimen (specimen) 03/03/2017 8:59 AM EDT 03/03/2017 9:10 AM EDT Narrative Resulting Agency Comment Spec In Lab Litzy Barron DIN[employer] SKINNER CHEMISTRY ORDERAB LES [facility] [place] [address] * CRP, acute inflammation (03/03/2017 8:59 AM EDT) C-Reactive Protein 1.8 <=4.9 mg/L [facility] Blood specimen (specimen) 03/03/2017 8:59 AM EDT 03/03/2017 9:10 AM EDT Narrative Resulting Agency Comment Spec In Lab Litzy Barron DIN[employer] SKINNER CHEMISTRY ORDERAB LES Performing Organization Address [facility]/ZIP Co de Phone Number [facility] [place] [address] * (ABNORMAL) Sedimentation rate (03/03/2017 8:59 AM EDT) Sedimentation Rate Automated 38(H) 0 - 20 mm/hr [facility] Blood specimen (specimen) 03/03/2017 8:59 AM EDT 03/03/2017 9:10 AM EDT Narrative Resulting Agency Comment Spec In Lab Litzy Henrynahomisharifa DIN[employer] SKINNER HEMATOLOGY ORDERA BLES Performing Organization Address [facility] Co de Phone Number [facility] [place] [address] * Calprotectin (03/02/2017 4:30 PM EDT) Calprotectin <15.6 <=50.0 (Normal) mcg/gm [facility] Comment: Test Performed by: [facility] [address] [address] Stool specimen (specimen) 03/02/2017 4:30 PM EDT 03/03/2017 9:19 AM EDT Narrative Resulting Agency Comment Spec In Lab Litzy Henrynahomisharifa DIN[employer] SKINNER BODY FLUIDS AND S TOOLS ORDERABLES Performing Organization Address [facility] Co de Phone Number [facility] [place] [address] * C. Difficile Screen (03/02/2017 4:30 PM EDT) C Diff Interp Negative Negative [facility] Comment: C. diff ??Negative Clostridium difficile is not present in the specimen. If patient is having diarrhea suspected to be from an infectious cause, then Contact Precautions are still required. Stool specimen (specimen) 03/02/2017 4:30 PM EDT 03/03/2017 8:57 AM EDT Narrative Resulting Agency Comment Spec In Lab MinalQuinten Barron [employer] MICROBIOLOGY - [place] [address] documented in this encounter Visit Diagnoses Diagnosis Abdominal pain, unspecified location Alternating constipation and diarrhea Other symptoms involving digestive system Gastroesophageal reflux disease, esophagitis presence not specified Alternating constipation and diarrhea Other symptoms involving digestive system Abdominal pain, unspecified location documented in this encounter Care Teams Harness Fitter Relationship Specialty Start Date End Date Presley Santillan MD [address] [place] [id number] PCP - General Internal Medicine 02/10/17 documented as of this encounter
--- OUTSIDE RECORDS SUMMARY | 2024-05-03 17:33 | XMS_ITS | Encounter Summary ---
Author Organization Formerly [facility] Address [facility] [place] [address] Care Team Providers Care Derrick Builder Name Role Phone Presley Santillan MD Primary Care Provider [phone] Reason for Visit * Auth/Cert Specialty Diagnoses / Procedures Referred By Contac t Referred To Contact Diagnoses Acute ITP THROMBOCYTOPENIA Procedures emergency ipi Referral ID Status Reason Start Date Expiration Date Visits Re quested Visits Authorized [id number] 1 1 Encounter Details Date Type Department Care Team (Latest Contact Info) Description 02/10/2017 7:43 PM EDT - 02/13/2017 2:31 PM EDT Hospital Encounter 1 [place] [id number] Hemal Goodrich Jr., MD [facility] [address] HEMATOLOGY [place] [address] Acute ITP Discharge Disposition: Home Social History [...] Daniela Gardner Patient Age: 26 y.o. Language: Pashto Race: White Ethnicity: Not nor Admit date: [...] She presents today from her home in [place], [place] after being found to have progressive [...] 0 Updated Allergies/ADRs: Allergies Allergen Reactions ??? [place] Other (See Comments) Abdominal pain ??? Cis [...] CLIN 03/06/2017 4:15 PM Jessica Mohamud [place]N [place] Your Inpatient Doctor: Hemal Goodrich MD Your Primary Care Provider: Presley Santillan MD [phone] For questions regarding this document or issues relating to this hospitalization on the Medical Service, please contact your inpatient physician through the [facility] [employer] . Issues afterhours and on weekends will be handled by the Hospitalist staff on-call. General Instructions None Future Appointments and Orders Future Appointments Provider Department Dept Phone 02/17/2017 10:00 AM LABORATORY, TECH [facility] 3K [phone] 02/17/2017 11:00 AM Yovani Fajardo MD [facility] [phone] 02/17/2017 1:00 PM Litzy Barron APRN Gastroenterology [phone] Provider Contact Information: Presley Santillan MD [address] / [place] [address] Discharge References/Attachments: Discharge References/Attachments None Inpatient BMT/Hematology [...] AM Yovani Fajardo MD [facility] [place] [facility] 02/17/2017 1:00 PM Litzy Barron APRN [facility] [place] [facility] 03/06/2017 4:15 PM Jessica Mohamud APRN [place], [place] Your Inpatient Doctor: Hemal Goodrich MD Your Primary Care Provider: Presley Santillan MD [phone] For questions regarding this document or issues relating to this hospitalization on the Medical Service, please contact your inpatient physician through the [facility] [employer] . Issues afterhours and on weekends will [...] assistance. Diamond Morelos RN Case Management for [facility] pgr [phone] * Hemal Goodrich [...] PCP: Presley Santillan MD PCP phone number: [phone] Date of Admission: 02/10/2017 ( Hospital Day 2 days ) Service: Hem/Onc Team A pg [phone] (19/01) Responsible Attending:Hemal Goodrich MD ID: Daniela [...] Mao DO PGY1 Internal Medicine 02/12/2017 Pager #[phone] 19/01 Heme/Onc/BMT Team A Pager #[phone] Inpatient BMT/Hematology Staff Addendum I have independently [...] PCP: Presley Santillan MD PCP phone number: [phone] Date of Admission: 02/10/2017 ( Hospital Day 1 day ) Service: Hem/Onc Team A pg [id number] (19/01) Responsible Attending:Hemal Goodrich MD ID: Daniela [...] Mao DO PGY1 Internal Medicine 02/11/2017 Pager #[phone] 19/01 Heme/Onc/BMT Team A Pager #[phone] Heme Staff Addendum- Please see my addendum from this date to pt's H+P. -[facility] documented in this encounter H&P Notes * Hemal Goodrich MD - 02/11/2017 5:24 AM EDT Admission History and Physical Patient Name: Daniela Gardner Responsible Attending: MD Kp PCP: Presley Santillan MD PCP phone #: [phone] ID/Chief Complaint: thrombocytopenia History of Present Illness: Ms. Daniela Gardner is a 26 y/o female with a past medical hx significant for irritable bowel syndrome, and Raynaud's phenomenon. 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 [place] Other (See Comments) Abdominal pain ??? 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 No IVDU, no other recreational drug use [...] MD Internal Medicine PGY-3 Team Pager # [phone] 02/11/2017 Inpatient BMT/Hematology Staff Addendum I have [...] Goldsmith MD - 02/11/2017 6:20 PM EDT [facility] Department of Gastroenterology Inpatient Consult Note Patient info: Daniela Gardner 1990 [id number] Presley Santillan MD Date of Admission: 02/10/2017 [...] severely thrombocytopenic. She was subsequently transferred to [facility] for management of her thrombocytopenia. For the [...] had a colonoscopy at that time at [facility] by Dr. Matute; polyps were identified but [...] was seen by Dr. Presley Santillan at [facility] on 02/09/17 and referred to [facility] given abnormal labs. Past Medical History: No past medical history on file. Past Surgical History: No past surgical history on file. Medication History: No current facility-administered medications on file prior to encounter. No current outpatient prescriptions on file prior to encounter. Allergies: Allergies Allergen Reactions ??? [place] Other (See Comments) Abdominal pain ??? Cis [...] signed by: Candi Goldsmith MD Gastroenterology Fellow [facility] Pager [phone] 02/11/2017 Associated attestation - Lori Roberts MD [...] care. Lori Roberts MD Gastroenterology Attending Pager [phone] * Plan of Care - Litzy Arciniega [...] had a colonoscopy at that time at [facility] by Dr. Matute; polyps were identified but [...] was seen by Dr. Presley Santillan at [facility] on 02/09/17 and referred to [facility] given abnormal labs. Workup so far has [...] OR prochlorperazine ALLERGIES Allergies Allergen Reactions ??? [place] Other (See Comments) Abdominal pain ??? 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 Tobacco use: denies Alcohol: 1 drink [...] for doing Advance Directives. Provided copy(ies) of [place] [employer] [facility] Advance Directives Taking Steps booklet with forms. 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 3 steps to enter telma's home and lives on one level. [id number] [facility] [id number] Social & Family Supports/Community Resources: Family Extended Emergency Contact Information Primary Emergency Contact: Yousuf Noyola Address: [address] [place] [address] [facility] Relation: Friend Secondary Emergency Contact: Justus Gardner Address: [address] [place] [address] [facility] Relation: Mother Behavioral Health History: n/a Substance Use/Abuse: n/a Other Pertinent/Service Specific Information: n/a Health/Prescription Coverage: Primary Insurance: [employer] OOS Payor: [employer] [facility] OOS / Plan: [facility] OOS PPO / Product Type: *No Product type* / Secondary Insurance: [employer] Prescription Coverage: / Preferred Pharmacy: [phone] [address] Other: n/a Primary Care Provider: Presley Santillan MD [phone] Patient/Caregiver Goals of Treatment: Figure out whats [...] of care planning. Diamond Morelos RN Pager: [phone] * Plan of Care - Naida Patterson [...] 3:28 AM EDT) Neutrophil % 84.4 % [facility] Neutrophil Absolute 8.60(H) 1.70 - 6.10 x10(3)/mc L [facility] Lymph % 8.0 % [facility] Lymphocytes Abs 0.8(L) 0.9 - 3.2 x10(3)/mc L [facility] Monocyte % 6.7 % [facility] Monocyte Abs 0.7 0.3 - 0.9 x10(3)/mc L [facility] Eos % 0.0 % [facility] Eosinophils Abs 0.0 0.0 - 0.4 x10(3)/mc L [facility] Basophil % 0.1 % [facility] Baso Absolute 0.0 0.0 - 0.1 x10(3)/mc L [facility] Immature Gran % 0.80 % [facility] Comment: Immature granulocytes(IG's)percentage and absolute count will include metamyelocytes, myelocytes, and promyelocytes. Blood smears from CBCs yielding IG's will be scanned manually for concordance. If this scan disagrees with the automated IG or if promyelocytes are noted, a manual differential will be performed. Immature Gran Absolute 0.08(H) 0.00 - 0.04 x10(3)/[facility] Blood specimen (specimen) 02/13/2017 3:28 AM EDT 02/13/2017 4:00 AM EDT Narrative Resulting Agency Comment Spec In Lab Hemal Goodrich Jr., MD HEMATOLOGY ORDERABLE S [facility] [place] [address] * (ABNORMAL) Hemogram (02/13/2017 3:28 AM EDT) White Blood Cell 10.2(H) 4.0 - 9.5 x10(3)/[facility] Red Blood Cell 3.53(L) 4.00 - 5.21 x10(6)/[facility] Hemoglobin 11.5(L) 11.7 - 15.5 gm/dL [facility] Hematocrit 31.8(L) 35.7 - 45.8 % [facility] Mean Cell Volume 90.1 82.6 - 94.4 fL [facility] Mean Cell Hemoglobin 32.6(H) 27.1 - 32.0 pg [facility] Mean Cell Hemoglobin Concentration 36.2(H) 31.7 - 35.0 gm/dL [facility] Platelet 86(L) 145 - 357 x10(3)/[facility] RDW Standard Deviation 37.8 37.0 - 46.0 fL [facility] RDW coefficient of variation 11.9 11.5 - 14.1 % [facility] Mean Platelet Volume 11.1 7.6 - 12.9 fL [facility] NRBC% auto 0.0 % [facility] NRBC Absolute 0.000 0.000 - 0.000 x10(3)/mc L [facility] Blood specimen (specimen) 02/13/2017 3:28 AM EDT 02/13/2017 4:00 AM EDT Narrative Resulting Agency Comment Spec In Lab Hemal Goodrich Jr., MD HEMATOLOGY ORDERABLE S Performing Organization Address City/[facility]/ZIP Co de Phone Number [facility] [place] [address] * Magnesium (02/13/2017 3:28 AM EDT) Pathologist [facility] Magnesium 0.84 0.69 - 1.07 mmol/L [facility] Blood specimen (specimen) 02/13/2017 3:28 AM EDT 02/13/2017 4:00 AM EDT Narrative Resulting Agency Comment Spec In Lab Hemal Goodrich Jr., MD CHEMISTRY ORDERABLES Performing Organization Address [facility] Co de Phone Number [facility] [place] [address] * Hepatitis B Core Antibody, IgM (02/13/2017 3:28 AM EDT) Pathologist [facility] Hepatitis B Core IgM Negative Negative [facility] Blood specimen (specimen) 02/13/2017 3:28 AM EDT 02/13/2017 4:00 AM EDT Narrative Resulting Agency Comment Spec In Lab Hemal Goodrich Jr., MD CHEMISTRY ORDERABLES Performing Organization Address [facility] Co de Phone Number [facility] [place] [address] * (ABNORMAL) Basic Metabolic Panel (non-fasting) (02/13/2017 3:28 AM EDT) Pathologist [facility] Glucose 149 65 - 199 mg/dL [facility] Comment:Diabetes: >=200 mg/d L plus symptoms Blood Urea Nitrogen 9 8 - 18 mg/dL [facility] Creatinine 0.82 0.70 - 1.20 mg/dL [facility] Comment: Please note that the pediatric reference intervals supplied above were not validated at [facility]. Results from pediatric patients should be interpreted in conjunction to the patient's age, height and muscle mass. Sodium 136 135 - 145 mmol/L [facility] Potassium 3.8 3.5 - 5.0 mmol/L [facility] Comment: Please note: ??Patients with WBC >100,000 may have falsely elevated Potassium levels. ??For accurate Potassium quantification in these patients send serum separator tube (gold top) for subsequent determinations. ??Contact the Clinical Chemistry Laboratory if there are any questions. Chloride 101 98 - 107 mmol/L [facility] Carbon Dioxide 19(L) 22 - 31 mmol/L [facility] Anion Gap 16(H) 5 - 15 mmol/L [facility] Calcium 8.4(L) 8.5 - 10.5 mg/dL [facility] Est Glomerular Filtration Rate >60 >=60 [facility] Comment: This estimated GFR (eGFR) [...] the following links into your internet browser. [email or web address] Blood specimen (specimen) 02/13/2017 3:28 AM EDT 02/13/2017 4:00 AM EDT Narrative Resulting Agency Comment Spec In Lab Hemal Goodrich Jr., [place] [address] * (ABNORMAL) Differential, Automated (02/12/2017 3:08 AM EDT) [facility] Neutrophil % 89.5 % [facility] Neutrophil Absolute 4.15 1.70 - 6.10 x10(3)/ L [facility] Lymph % 9.5 % [facility] Lymphocytes Abs 0.4(L) 0.9 - 3.2 x10(3)/ L [facility] Monocyte % 0.6 % [facility] Monocyte Abs 0.0(L) 0.3 - 0.9 x10(3)/ L [facility] Eos % 0.0 % [facility] Eosinophils Abs 0.0 0.0 - 0.4 x10(3)/[facility] Basophil % 0.0 % [facility] Baso Absolute 0.0 0.0 - 0.1 x10(3)/ L [facility] Immature Gran % 0.40 % [facility] Comment: Immature granulocytes(IG's)percentage and absolute count will include metamyelocytes, myelocytes, and promyelocytes. Blood smears from CBCs yielding IG's will be scanned manually for concordance. If this scan disagrees with the automated IG or if promyelocytes are noted, a manual differential will be performed. Immature Gran Absolute 0.02 0.00 - 0.04 x10(3)/ L [facility] Blood specimen (specimen) 02/12/2017 3:08 AM EDT 02/12/2017 3:23 AM EDT Narrative Resulting Agency Comment Spec In Lab Hemal Goodrich Jr., MD HEMATOLOGY ORDERABLE S [facility] [place] [address] * (ABNORMAL) Hemogram (02/12/2017 3:08 AM EDT) White Blood Cell 4.6 4.0 - 9.5 x10(3)/ L [facility] Red Blood Cell 4.08 4.00 - 5.21 x10(6)/ L [facility] Hemoglobin 12.8 11.7 - 15.5 gm/dL [facility] Hematocrit 35.2(L) 35.7 - 45.8 % [facility] Mean Cell Volume 86.3 82.6 - 94.4 fL [facility] Mean Cell Hemoglobin 31.4 27.1 - 32.0 pg [facility] Mean Cell Hemoglobin Concentration 36.4(H) 31.7 - 35.0 gm/dL [facility] Platelet 33(L) 145 - 357 x10(3)/[facility] RDW Standard Deviation 35.2(L) 37.0 - 46.0 fL [facility] RDW coefficient of variation 11.4(L) 11.5 - 14.1 % [facility] Mean Platelet Volume 11.8 7.6 - 12.9 fL [facility] NRBC% auto 0.0 % [facility] NRBC Absolute 0.000 0.000 - 0.000 x10(3)/ L [facility] Blood specimen (specimen) 02/12/2017 3:08 AM EDT 02/12/2017 3:23 AM EDT Narrative Resulting Agency Comment Spec In Lab Hemal Goodrich Jr., MD HEMATOLOGY ORDERABLE S [facility] [place] [address] * Magnesium (02/12/2017 3:08 AM EDT) Magnesium 0.96 0.69 - 1.07 mmol/L [facility] Blood specimen (specimen) 02/12/2017 3:08 AM EDT 02/12/2017 3:23 AM EDT Narrative Resulting Agency Comment Spec In Lab Hemal Goodrich Jr., MD CHEMISTRY ORDERABLES [facility] [place] [address] * (ABNORMAL) Basic Metabolic Panel (non-fasting) (02/12/2017 3:08 AM EDT) Glucose 188 65 - 199 mg/dL [facility] Comment:Diabetes: >=200 mg/d L plus symptoms Blood Urea Nitrogen 8 8 - 18 mg/dL [facility] Creatinine 0.78 0.70 - 1.20 mg/dL [facility] Comment: Please note that the pediatric reference intervals supplied above were not validated at [facility]. Results from pediatric patients should be interpreted in conjunction to the patient's age, height and muscle mass. Sodium 136 135 - 145 mmol/L [facility] Potassium 4.5 3.5 - 5.0 mmol/L [facility] Comment: result rechecked-RR Please note: ??Patients with WBC >100,000 may have falsely elevated Potassium levels. ??For accurate Potassium quantification in these patients send serum separator tube (gold top) for subsequent determinations. ??Contact the Clinical Chemistry Laboratory if there are any questions. Chloride 104 98 - 107 mmol/L [facility] Carbon Dioxide 18(L) 22 - 31 mmol/L [facility] Anion Gap 14 5 - 15 mmol/L [facility] Calcium 9.1 8.5 - 10.5 mg/dL [facility] Est Glomerular Filtration Rate >60 >=60 [facility] Comment: This estimated GFR (eGFR) [...] the following links into your internet browser. [email or web address] Blood specimen (specimen) 02/12/2017 3:08 AM EDT 02/12/2017 3:23 AM EDT Narrative Resulting Agency Comment Spec In Lab Hemal Goodrich Jr., MD CHEMISTRY ORDERABLES Performing Organization Address [facility] Co de Phone Number [facility] [place] [address] * Helicobacter pylori Antigen Stool (02/11/2017 4:03 PM EDT) H pylori Ag Negative Negative [facility] Comment:Test performed by soni fung. H pylori Ag Comment See Comment [facility] Comment: Antimicrobials, proton pump inhibitors and bismuth preparations are known to suppress H pylori, and ingestion of these prior to H. pylori testing may cause false negative results. Stool specimen (specimen) 02/11/2017 4:03 PM EDT 02/12/2017 2:20 PM EDT Narrative Resulting Agency Comment Spec In Lab Hemal Goodrich Jr., MD MICROBIOLOGY - GENER AL ORDERABLES Performing Organization Address [facility] Co de Phone Number [facility] [place] [address] * IgG (02/11/2017 1:13 PM EDT) Immunoglobulin G 870 700 - 1,600 mg/dL [facility] Blood specimen (specimen) 02/11/2017 1:13 PM EDT 02/11/2017 1:32 PM EDT Narrative Resulting Agency Comment Spec In Lab Hemal Goodrich Jr., MD CHEMISTRY ORDERABLES Performing Organization Address [facility] Co de Phone Number [facility] [place] [address] * IgA (02/11/2017 1:13 PM EDT) IgA 189 70 - 400 mg/dL [facility] Blood specimen (specimen) 02/11/2017 1:13 PM EDT 02/11/2017 1:32 PM EDT Narrative Resulting Agency Comment Spec In Lab Hemal Goodrich Jr., MD CHEMISTRY ORDERABLES Performing Organization Address City/[facility]/ZIP Co de Phone Number [facility] [place] [address] * Hepatitis C Antibody (02/11/2017 1:13 PM EDT) Hepatitis C Antibody Negative Negative [facility] Comment: An updated Hepatitis C Ab assay reagent was implemented on 09/10/16. Please contact Dr. Alvarez at [phone] with any questions or concerns. Blood specimen (specimen) 02/11/2017 1:13 PM EDT 02/11/2017 1:32 PM EDT Narrative Resulting Agency Comment Spec In Lab Hemal Goodrich Jr., MD CHEMISTRY ORDERABLES Performing Organization Address [facility] Co de Phone Number [facility] [place] [address] * Hepatitis B Surface Antibody (02/11/2017 1:13 PM EDT) Hepatitis B Surface Antibody, Quantitative >1,000.0 IU/L [facility] Comment: HepB Surface Ab Quant: Unvaccinated: < 8.5 IU/L Vaccinated: > 11.5 IU/L Hepatitis B Surface Antibody Positive [facility] Comment: Patient is considered to be immune to HBV infection. Expected Results: Vaccinated: Positive Unvaccinated: Negative Blood specimen (specimen) 02/11/2017 1:13 PM EDT 02/11/2017 1:32 PM EDT Narrative Resulting Agency Comment Spec In Lab Hemal Goodrich Jr., MD CHEMISTRY ORDERABLES Performing Organization Address City/[facility] Co de Phone Number [facility] [place] [address] * EKG 12 Lead (02/11/2017 12:50 PM EDT) Ventricular rate 58 BPM MUSE SYSTEM Atrial Rate 58 BPM MUSE SYSTEM P-R Interval 130 ms MUSE SYSTEM QRS Duration 96 ms MUSE SYSTEM Q-T Interval 418 ms MUSE SYSTEM QTC Calculated (Bezet) 410 ms MUSE SYSTEM Calculated P [place] 62 degrees MUSE SYSTEM Calculated R [place] 64 degrees MUSE SYSTEM Calculated T [place] 33 degrees MUSE SYSTEM INTERPRETATION Sinus bradycardia with sinus arrhythmia Otherwise normal ECG No previous ECGs available Confirmed by MD Roberto, Jeff Lezama ([id number]) on 02/11/2017 2:16:18 PM MUSE SYSTEM 02/11/2017 12:5 0 PM EDT 02/11/2017 2:16 PM EDT Hemal Goodrich Jr., MD ECG ORDERABLES MUSE SYSTEM * Differential, Automated (02/11/2017 5:10 AM EDT) Neutrophil % 50.7 % [facility] Neutrophil Absolute 3.69 1.70 - 6.10 x10(3)/[facility] Lymph % 37.5 % [facility] Lymphocytes Abs 2.7 0.9 - 3.2 x10(3)/[facility] Monocyte % 7.7 % [facility] Monocyte Abs 0.6 0.3 - 0.9 x10(3)/[facility] Eos % 3.4 % [facility] Eosinophils Abs 0.2 0.0 - 0.4 x10(3)/[facility] Basophil % 0.4 % [facility] Baso Absolute 0.0 0.0 - 0.1 x10(3)/[facility] Immature Gran % 0.30 % [facility] Comment: Immature granulocytes(IG's)percentage and absolute count will include metamyelocytes, myelocytes, and promyelocytes. Blood smears from CBCs yielding IG's will be scanned manually for concordance. If this scan disagrees with the automated IG or if promyelocytes are noted, a manual differential will be performed. Immature Gran Absolute 0.02 0.00 - 0.04 x10(3)/mcL [facility] Blood specimen (specimen) 02/11/2017 5:10 AM EDT 02/11/2017 5:23 AM EDT Narrative Resulting Agency Comment Spec In Lab Hemal Goodrich Jr., MD HEMATOLOGY ORDERABLE S [facility] [place] [address] * (ABNORMAL) Hemogram (02/11/2017 5:10 AM EDT) White Blood Cell 7.3 4.0 - 9.5 x10(3)/ L [facility] Red Blood Cell 4.03 4.00 - 5.21 x10(6)/[facility] Hemoglobin 12.4 11.7 - 15.5 gm/dL [facility] Hematocrit 34.7(L) 35.7 - 45.8 % [facility] Mean Cell Volume 86.1 82.6 - 94.4 fL [facility] Mean Cell Hemoglobin 30.8 27.1 - 32.0 pg [facility] Mean Cell Hemoglobin Concentration 35.7(H) 31.7 - 35.0 gm/dL [facility] Platelet 18(Critic al) 145 - 357 x10(3)/[facility] RDW Standard Deviation 36.1(L) 37.0 - 46.0 fL [facility] RDW coefficient of variation 11.5 11.5 - 14.1 % [facility] Mean Platelet Volume 13.3(H) 7.6 - 12.9 fL [facility] NRBC% auto 0.0 % [facility] NRBC Absolute 0.000 0.000 - 0.000 x10(3)/ L [facility] Blood specimen (specimen) 02/11/2017 5:10 AM EDT 02/11/2017 5:23 AM EDT Narrative Resulting Agency Comment Spec In Lab Hemal Goodrich Jr., MD HEMATOLOGY ORDERABLE S [facility] [place] [address] * (ABNORMAL) Basic Metabolic Panel (non-fasting) (02/11/2017 5:10 AM EDT) Glucose 103 65 - 199 mg/dL [facility] Comment:Diabetes: >=200 mg/d L plus symptoms Blood Urea Nitrogen 6(L) 8 - 18 mg/dL [facility] Creatinine 0.80 0.70 - 1.20 mg/dL [facility] Comment: Please note that the pediatric reference intervals supplied above were not validated at [facility]. Results from pediatric patients should be interpreted in conjunction to the patient's age, height and muscle mass. Sodium 140 135 - 145 mmol/L [facility] Potassium 3.3(L) 3.5 - 5.0 mmol/L [facility] Comment: Please note: ??Patients with WBC >100,000 may have falsely elevated Potassium levels. ??For accurate Potassium quantification in these patients send serum separator tube (gold top) for subsequent determinations. ??Contact the Clinical Chemistry Laboratory if there are any questions. Chloride 103 98 - 107 mmol/L [facility] Carbon Dioxide 23 22 - 31 mmol/L [facility] Anion Gap 14 5 - 15 mmol/L [facility] Calcium 9.0 8.5 - 10.5 mg/dL [facility] Est Glomerular Filtration Rate >60 >=60 [facility] Comment: This estimated GFR (eGFR) [...] the following links into your internet browser. [email or web address] Blood specimen (specimen) 02/11/2017 5:10 AM EDT 02/11/2017 5:23 AM EDT Narrative Resulting Agency Comment Spec In Lab Hemal Goodrich Jr., MD CHEMISTRY ORDERABLES Performing Organization Address [facility] Co de Phone Number [facility] [place] [address] * MARK Titer (02/10/2017 10:37 PM EDT) MARK Titer positive [facility] Comment: 1:160 Titer seen with Homogeneous/Diffuse pattern. ??Is suggestive of autoantibodies to nDNA, histones, or DNA-associated proteins. Blood specimen (specimen) 02/10/2017 10:37 PM EDT 02/11/2017 7:10 AM EDT Narrative Resulting Agency Comment Spec In Lab Hemal Goodrich Jr., MD IMMUNOLOGY ORDERABLE S Performing Organization Address [facility] [place] [address] * DNA Antibody (Double-Stranded) (02/10/2017 10:37 PM EDT) DNA Ab (DS) Neg Neg [facility] Blood specimen (specimen) 02/10/2017 10:37 PM EDT 02/11/2017 7:10 AM EDT Narrative Resulting Agency Comment Spec In Lab Hemal Goodrich Jr., MD LAB SEND OUT ORDERAB LES Performing Organization Address [facility] de Phone Number [facility] [place] [address] * Smear Review Report (02/10/2017 10:37 PM EDT) Smear Review Report [id number] ? Location: 1WST; 0118; B The signing [...] review was requested for evaluation of cytopenia. [facility] 02/10/2017 10:3 7 PM EDT Lis Ackerman MD HEMATOLOGY ORDERABLE S [facility] [place] [address] * Scan, Peripheral Blood (02/10/2017 10:37 PM EDT) Plat estimate Decreased [facility] RBC Morphology Normal [facility] Blood specimen (specimen) 02/10/2017 10:37 PM EDT 02/10/2017 10:42 PM EDT Narrative Resulting Agency Comment Spec In Lab Hemal Goodrich Jr., MD HEMATOLOGY ORDERABLE S Performing Organization Address City/[facility]/ZIP Co de Phone Number [facility] [place] [address] * Differential, Automated (02/10/2017 10:37 PM EDT) [facility] Neutrophil % 61.0 % [facility] Neutrophil Absolute 5.10 1.70 - 6.10 x10(3)/[facility] Lymph % 30.1 % [facility] Lymphocytes Abs 2.5 0.9 - 3.2 x10(3)/[facility] Monocyte % 6.5 % [facility] Monocyte Abs 0.5 0.3 - 0.9 x10(3)/[facility] Eos % 1.9 % [facility] Eosinophils Abs 0.2 0.0 - 0.4 x10(3)/[facility] Basophil % 0.4 % [facility] Baso Absolute 0.0 0.0 - 0.1 x10(3)/[facility] Immature Gran % 0.10 % [facility] Comment: Immature granulocytes(IG's)percentage and absolute count will include metamyelocytes, myelocytes, and promyelocytes. Blood smears from CBCs yielding IG's will be scanned manually for concordance. If this scan disagrees with the automated IG or if promyelocytes are noted, a manual differential will be performed. Immature Gran Absolute 0.01 0.00 - 0.04 x10(3)/[facility] Blood specimen (specimen) 02/10/2017 10:37 PM EDT 02/10/2017 10:42 PM EDT Narrative Resulting Agency Comment Spec In Lab Hemal Goodrich Jr., MD HEMATOLOGY ORDERABLE S [facility] [place] [address] * (ABNORMAL) Hemogram (02/10/2017 10:37 PM EDT) White Blood Cell 8.4 4.0 - 9.5 x10(3)/mc L [facility] Red Blood Cell 4.16 4.00 - 5.21 x10(6)/[facility] Hemoglobin 12.9 11.7 - 15.5 gm/dL [facility] Hematocrit 35.7 35.7 - 45.8 % [facility] Mean Cell Volume 85.8 82.6 - 94.4 fL [facility] Mean Cell Hemoglobin 31.0 27.1 - 32.0 pg [facility] Mean Cell Hemoglobin Concentration 36.1(H) 31.7 - 35.0 gm/dL [facility] Platelet 17(Critic al) 145 - 357 x10(3)/[facility] RDW Standard Deviation 35.6(L) 37.0 - 46.0 fL [facility] RDW coefficient of variation 11.5 11.5 - 14.1 % [facility] Mean Platelet Volume 13.4(H) 7.6 - 12.9 fL [facility] NRBC% auto 0.0 % [facility] NRBC Absolute 0.000 0.000 - 0.000 x10(3)/ L [facility] Blood specimen (specimen) 02/10/2017 10:37 PM EDT 02/10/2017 10:42 PM EDT Narrative Resulting Agency Comment Spec In Lab Hemal Goodrich Jr., MD HEMATOLOGY ORDERABLE S Performing Organization Address City/[facility]/ZIP Co de Phone Number [facility] [place] [address] * (ABNORMAL) MARK (02/10/2017 10:37 PM EDT) [facility] MARK Titer to follow(A) Neg [facility] Blood specimen (specimen) 02/10/2017 10:37 PM EDT 02/11/2017 7:10 AM EDT Narrative Resulting Agency Comment Spec In Lab Heaml Goodrich Jr., MD LAB SEND OUT ORDERAB LES Performing Organization Address [facility] Co de Phone Number [facility] [place] [place] [address] * (ABNORMAL) Comprehensive metabolic panel (non-fasting) (02/10/2017 10:37 PM EDT) [facility] Glucose 114 65 - 199 mg/dL [facility] Comment:Diabetes: >=200 mg/d L plus symptoms Blood Urea Nitrogen 6(L) 8 - 18 mg/dL [facility] Creatinine 0.80 0.70 - 1.20 mg/dL [facility] Comment: Please note that the pediatric reference intervals supplied above were not validated at [facility]. Results from pediatric patients should be interpreted in conjunction to the patient's age, height and muscle mass. Sodium 140 135 - 145 mmol/L [facility] Potassium 3.5 3.5 - 5.0 mmol/L [facility] Comment: Please note: ??Patients with WBC >100,000 may have falsely elevated Potassium levels. ??For accurate Potassium quantification in these patients send serum separator tube (gold top) for subsequent determinations. ??Contact the Clinical Chemistry Laboratory if there are any questions. Chloride 102 98 - 107 mmol/L [facility] Carbon Dioxide 20(L) 22 - 31 mmol/L [facility] Anion Gap 18(H) 5 - 15 mmol/L [facility] Calcium 9.5 8.5 - 10.5 mg/dL [facility] Protein, Total 7.6 6.1 - 8.0 gm/dL [facility] Albumin 4.3 3.2 - 5.2 gm/dL [facility] Aspartate Aminotransferase 15 0 - 30 unit/L [facility] Alanine Aminotransferase 9 0 - 30 unit/L [facility] Alkaline Phosphatase 50 40 - 104 unit/L [facility] Bilirubin, Total 0.7 0.2 - 1.3 mg/dL [facility] Est Glomerular Filtration Rate >60 >=60 [facility] Comment: This estimated GFR (eGFR) [...] the following links into your internet browser. [email or web address] Blood specimen (specimen) 02/10/2017 10:37 PM EDT 02/10/2017 10:42 PM EDT Narrative Resulting Agency Comment Spec In Lab Hemal Goodrich Jr., MD CHEMISTRY ORDERABLES [facility] [place] [address] * Folate, serum (02/10/2017 10:37 PM EDT) Folate >20.0 4.8 - 24.2 ng/mL [facility] Blood specimen (specimen) 02/10/2017 10:37 PM EDT 02/10/2017 10:42 PM EDT Narrative Resulting Agency Comment Spec In Lab Hemal Goodrich Jr., MD CHEMISTRY ORDERABLES Performing Organization Address [facility] Co de Phone Number [facility] [place] [address] * Vitamin B12 (02/10/2017 10:37 PM EDT) Vitamin B12 549 207 - 974 pg/mL [facility] Blood specimen (specimen) 02/10/2017 10:37 PM EDT 02/10/2017 10:42 PM EDT Narrative Resulting Agency Comment Spec In Lab Hemal Goodrich Jr., MD CHEMISTRY ORDERABLES Performing Organization Address [facility] Co de Phone Number [facility] [place] [address] * HIV Screen, 4th Generation (02/10/2017 10:37 PM EDT) Pathologist [facility] HIV Ab/Ag Screen Negative Negative [facility] Comment: This 4th Generation [...] Jr., MD CHEMISTRY ORDERABLES Performing Organization Address [facility] Co de Phone Number [facility] [place] [address] * Peripheral Smear Review (02/10/2017 10:37 PM EDT) Peripheral Smear Review See Comment [facility] Comment: When completed by the Pathologist, report [id number] will display under Hematopathology Reports. Blood specimen (specimen) 02/10/2017 10:37 PM EDT 02/10/2017 10:42 PM EDT Narrative Resulting Agency Comment Spec In Lab Hemal Goodrich Jr., MD HEMATOLOGY ORDERABLE S [facility] [place] [address] * Beta HCG, quantitative (02/10/2017 10:37 PM EDT) Beta Human Chorionic Gonadotropin, Quantitative <1 mlU/ML [facility] Comment: REFERENCE RANGES NON- FEMALE: ??Less [...] - 56,451 ?17 weeks ? 8,175 - 18,868 ?18 weeks ? 8,099 - 58,176 Blood specimen (specimen) 02/10/2017 10:37 PM EDT 02/10/2017 10:42 PM EDT Narrative Resulting Agency Comment Spec In Lab Hemal Goodrich Jr., MD CHEMISTRY ORDERABLES [facility] [place] [address] * D-Dimer, Quantitative (02/10/2017 10:37 PM EDT) D-Dimer <270 0 - 500 FEU ng/ml [facility] Comment: The D-Dimer assay is used [...] MD HEMATOLOGY ORDERABLE S Performing Organization Address [facility] Co de Phone Number [facility] [place] [address] * Thrombin time (02/10/2017 10:37 PM EDT) Thrombin Time 16 15 - 20 sec [facility] Comment: A prolongation in the thrombin [...] MD HEMATOLOGY ORDERABLE S Performing Organization Address [facility] Co de Phone Number [facility] [place] [address] * Fibrinogen (02/10/2017 10:37 PM EDT) Fibrinogen 289 180 - 510 mg/dL [facility] Comment: A fibrinogen level >100 mg/dL is adequate for hemostasis in most patients without underlying bleeding disorders. Blood specimen (specimen) 02/10/2017 10:37 PM EDT 02/10/2017 10:42 PM EDT Narrative Resulting Agency Comment Spec In Lab Hemal Goodrich Jr., MD HEMATOLOGY ORDERABLE S Performing Organization Address City/[facility] Co de Phone Number [facility] [place] [address] * APTT (02/10/2017 10:37 PM EDT) Partial Thromboplastin Time 30 25 - 35 sec [facility] Comment: The recommended therapeutic range for full dose, unfractionated heparin at [facility] is 80 ? 114 seconds. The use of the anti-Xa (heparin) level rather than the PTT is recommended for monitoring anticoagulation intensity in critically ill patients receiving unfractionated heparin by continuous IV infusion. Blood specimen (specimen) 02/10/2017 10:37 PM EDT 02/10/2017 10:42 PM EDT Narrative Resulting Agency Comment Spec In Lab Hemal Goodrich Jr., MD HEMATOLOGY ORDERABLE S Performing Organization Address [facility] de Phone Number [facility] [place] [address] * Prothrombin Time (02/10/2017 10:37 PM EDT) Prothrombin Time 14.9 12.0 - 15.0 sec [facility] Comment: An INR <2.0 [...] International Normalization Ratio 1.1 0.9 - 1.1 [facility] Blood specimen (specimen) 02/10/2017 10:37 PM EDT 02/10/2017 10:42 PM EDT Narrative Resulting Agency Comment Spec In Lab Hemal Goodrich Jr., MD HEMATOLOGY ORDERABLE S Performing Organization Address [facility] Co de Phone Number [facility] [place] [address] documented in this encounter Visit Diagnoses Diagnosis [...] require approval by P&T Chair or On-Call Lead Instructor/Flight Attendant. *Idiopathic thrombocytopenic purpura * Restarted 02/11/2017 10:16 [...] require approval by P&T Chair or On-Call Lead Instructor/Flight Attendant. *Idiopathic thrombocytopenic purpura * Rate/Dose Change 02/12/2017 [...] require approval by P&T Chair or On-Call Lead Instructor/Flight Attendant. *Idiopathic thrombocytopenic purpura * New Bag 02/11/2017 [...] require approval by P&T Chair or On-Call Lead Instructor/Flight Attendant. *Idiopathic thrombocytopenic purpura * Rate/Dose Change 02/12/2017 [...] require approval by P&T Chair or On-Call Lead Instructor/Flight Attendant. *Idiopathic thrombocytopenic purpura * 1839 (New Bag [...] require approval by P&T Chair or On-Call Lead Instructor/Flight Attendant. *Idiopathic thrombocytopenic purpura * 213 (New Bag - Provider: Naida Patterson RN - Comment: Lot number [id number] 11/15/2019Second check by Renetta Mariee)221 (Rate/Dose Change [...] require approval by P&T Chair or On-Call Lead Instructor/Flight Attendant. *Idiopathic thrombocytopenic purpura * 2312 (New Bag [...] require approval by P&T Chair or On-Call Lead Instructor/Flight Attendant. *Idiopathic thrombocytopenic purpura * 2314 (New Bag - Provider: Naida Patterson RN - Comment: Lot number: [id number].: 07/09/2019Second check by: Libertad Valenzuela RN )2331 [...] require approval by P&T Chair or On-Call Lead Instructor/Flight Attendant. *Idiopathic thrombocytopenic purpura * And immune globulin [...] require approval by P&T Chair or On-Call Lead Instructor/Flight Attendant. *Idiopathic thrombocytopenic purpura * Group 2: ondansetron [...] Routine documented in this encounter Care Teams Derrick Builder Relationship Specialty Start Date End Date Presley Santillan MD [address] [place] [address] PCP - General Internal Medicine 02/10/17 documented as of this encounter
--- OUTSIDE RECORDS SUMMARY | 2024-05-03 17:33 | XMS_ITS | Clinical Summary ---
Author Organization [facility] Address [address] [place] [address] Care Team Providers Care Soap Tender Name Role Phone Jessica Mohamud KOTA Primary Care Provider [phone] Immunizations Name Administration Dates Next Due Influenza [...] COVID-19 Vaccine (2022- season) 2023 Care Teams Soap Tender Relationship Specialty Start Date End Date Jessica Mohamud APRN [address] [place] [address] PCP - General 01/19/19
--- OUTSIDE RECORDS SUMMARY | 2024-05-03 17:33 | XMS_ITS | Encounter Summary ---
Author Organization [facility] Address [facility] [place] [address] Care Team Providers Care Audio Visual Director Name Role Phone Presley Santillan MD Primary Care Provider Encounter Details Date Type Department Care Team (Late st Contact Info) Description 03/11/2017 10:00 AM EDT Office Visit Hematology/Oncology at [address] [phone] Mercedez Goldberg MD [facility] [address] HEMATOLOGY [place] [address] Acute ITP Social History Tobacco Use Types [...] were normal. She was then admitted [place] [facility] [place] urgent treatment of suspected ITP. 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 female presents [...] effective, 6 cycles increases the likelihood of long-term remission (based on Carmen et al, 2013). [...] hepatitis B reactivation and case reports of QUALITY ASSURANCE TECH infections. Patient should use control, is not [...] with a toxicity check next week with BUCKLE ATTACHING MACHINE OPERATOR. ?? Continue weekly CBC at [facility] with RN tracking ?? Appointment with [facility] on week #4 of rituximab MERCEDEZ GOLDBERG MD Pager: [phone] 03/11/2017 * Anamaria Lamas RN - 03/11/2017 [...] purpura documented in this encounter Care Teams Audio Visual Director Relationship Specialty Start Date End Date Presley Santillan MD [address] [place] [address] PCP - General Internal Medicine 02/10/17 documented as of this encounter
--- OUTSIDE RECORDS SUMMARY | 2024-05-03 17:33 | XMS_ITS | Encounter Summary ---
Author Organization [facility] [place] Address [facility] [place] [address] Care Team Providers Care Pelletizer Name Role Phone Presley Santillan MD Primary Care Provider Encounter Details Date Type Department Care Team (Latest Contact Info) Description 03/02/2017 8:45 AM EDT - 03/02/2017 11:59 PM EDT Hospital Encounter Laboratory [facility] [place] [phone] Discharge Disposition: Home Social History Tobacco Use [...] on filedocumented in this encounter Care Teams Pelletizer Relationship Specialty Start Date End Date Presley Santillan MD [address] [place] [address] PCP - General Internal Medicine 02/10/17 documented as of this encounter
--- OUTSIDE RECORDS SUMMARY | 2024-05-03 17:33 | XMS_ITS | Encounter Summary ---
Author Organization [facility] Address [facility] [place] [address] Care Team Providers Care Airconditioning Plant Operator Name Role Phone Presley Santillan MD Primary Care Provider Reason for Visit * Reason Comments Advice Only * Consultation (Urgent) - Specialty Diagnoses / Procedures Referred By Contac t Referred To Contact Hematology and Oncology Diagnoses Chronic ITP (idiopathic thrombocytopenia) ITP Procedures ITP Presley Santillan MD [address] [place] [address] [facility] [address] [place] [address] Referral ID Status Reason Start Date Expiration Date V isits Requested Visits Authorized [id number] Consult, Test & Treat 02/10/2017 02/10/2018 1 1 Encounter Details Date Type Department Care Team (Late st Contact Info) Description 02/17/2017 11:00 AM EDT Office Visit [place] [address] Yovani Fajardo MD 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 Ms Gardner in interested in this. We will plan on giving Dexamethasone 40mg daily x 4 days every 21 days for 6 (total) cycles. RTC on 03/03 for labs, toxicity check, and consideration of cycle 2, or else stop and observe for relapse if toxicity is ongoing. Yovani Fajardo MD Pager: [phone] 02/17/2017 documented in this encounter Plan of Treatment Not on file documented as of this encounter Visit Diagnoses Diagnosis Acute ITP Immune thrombocytopenic purpura documented in this encounter Care Teams Airconditioning Plant Operator Relationship Specialty Start Date End Date Presley Santillan MD [address] [place] [address] PCP - General Internal Medicine 02/10/17 documented as of this encounter
--- OUTSIDE RECORDS SUMMARY | 2024-05-03 17:33 | XMS_ITS | Encounter Summary ---
Author Organization [facility] [place] [address] Care Team Providers Care Carving Machine Operator Name Role Phone Presley Santillan MD Primary Care Provider [phone] Reason for Visit * Diagnostic Test (Routine) - Closed Specialty Diagnoses / Procedures Referred By Contac t Referred To Contact Radiology Diagnoses Alternating constipation and diarrhea Abdominal pain, unspecified location Procedures MRI Enterography wwo Contrast Litzy Barron APRN [facility] [place] [address] [place] [address] Referral ID Status Reason Start Date Expiration Date V isits Requested Visits Authorized [id number] Closed Specialty Service Requested 04/06/2017 06/04/2017 1 1 Encounter Details Date Type Department Care Team (Latest Contact Info) Description 04/17/2017 10:28 AM EDT - 04/17/2017 11:59 PM EDT [place] [address] Litzy Barron APRN [facility] [place] [address] Discharge Disposition: Home Social History [...] mLs documented in this encounter Care Teams Carving Machine Operator Relationship Specialty Start Date End Date Presley Santillan MD [address] [place] [address] PCP - General Internal Medicine 02/10/17 documented as of this encounter
--- OUTSIDE RECORDS SUMMARY | 2024-05-03 17:33 | XMS_ITS | Encounter Summary ---
Author Organization [facility] Address [facility] [place] [address] Care Team Providers Care Lieutenant Fire Fighter Name Role Phone Presley Santillan MD Primary Care Provider [phone] Encounter Details Date Type Department Care Team (Late st Contact Info) Description 03/03/2017 9:30 AM EDT Office Visit [place] [address] Dennys Fajardo MD [facility] [address] HEMATOLOGY [place] [address] Acute ITP Social History Tobacco Use Types [...] were normal. She was then admitted to [facility] for urgent treatment of suspected ITP. 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 [...] up Rituximab and transfer of care to [facility] for Rituximab treatment. The addition of Rituximab will also increase the chance of prison remission. Today, we also some of Ms Gardner's fears about her ITP leading to a more aggressive malignancy, such as leukemia. I reassured her that ITP is not related to acute leukemias. Plan ?? Pulse Dex 40mg x 4 days, starting today. ?? Check labs and meet provider at [facility] next week ?? Hopefully schedule Rituximab infusion on day of appt in [facility] Dennys Fajardo MD Pager: [phone] 03/03/2017 documented in this encounter Miscellaneous Notes * Addendum Note - Dennys Fajardo MD - 03/06/2017 8:29 AM EDTAddended by: DENNYS FAJARDO on: 03/06/2017 08:29 AM Modules accepted: Orders documented in this encounter Plan of Treatment Not on file documented as of this encounter Results * Comprehensive metabolic panel (non-fasting) (03/03/2017 8:59 AM EDT) [facility] Glucose 95 65 - 199 mg/dL [facility] Comment:Diabetes: >=200 mg/d L plus symptoms Blood Urea Nitrogen 12 8 - 18 mg/dL [facility] Creatinine 0.95 0.70 - 1.20 mg/dL [facility] Comment: Please note that the pediatric reference intervals supplied above were not validated at [facility]. Results from pediatric patients should be interpreted in conjunction to the patient's age, height and muscle mass. Sodium 142 135 - 145 mmol/L [facility] Potassium 3.9 3.5 - 5.0 mmol/L [facility] Comment: Please note: ??Patients with WBC >100,000 may have falsely elevated Potassium levels. ??For accurate Potassium quantification in these patients send serum separator tube (gold top) for subsequent determinations. ??Contact the Clinical Chemistry Laboratory if there are any questions. Chloride 103 98 - 107 mmol/L [facility] Carbon Dioxide 24 22 - 31 mmol/L [facility] Anion Gap 15 5 - 15 mmol/L [facility] Calcium 9.3 8.5 - 10.5 mg/dL [facility] Protein, Total 7.4 6.1 - 8.0 gm/dL [facility] Albumin 4.4 3.2 - 5.2 gm/dL [facility] Aspartate Aminotransferase 24 0 - 30 unit/L [facility] Alanine Aminotransferase 29 0 - 30 unit/L [facility] Alkaline Phosphatase 49 40 - 104 unit/L [facility] Bilirubin, Total 0.5 0.2 - 1.3 mg/dL [facility] Est Glomerular Filtration Rate >60 >=60 [facility] Comment: This estimated GFR [...] the following links into your internet browser. [email or web address] Blood specimen (specimen) 03/03/2017 8:59 AM EDT 03/03/2017 9:10 AM EDT Narrative Resulting Agency Comment Spec In Lab Dennys Fajardo MD CHEMISTRY ORDERABL ES [facility] [place] [id number] * (ABNORMAL) Platelet count (03/03/2017 8:59 AM EDT) Platelet 80(L) 145 - 357 x10(3)/mc L [facility] Immature Plt % 5.6 0.0 - 7.4 % [facility] Comment: Limitation of the Immature Platelet Fraction (IPF)-May be less reliable when the platelet count is less than 91y366/uL due to statistical imprecision. The IPF value [...] in a decreased state of production. References: [employer] The Clinical Value of the Immature Platelet Fraction (IPF) in Cell Recovery Document Number 10-1143 11/2010 [employer] The Role of the Immature Platelet Fraction (IPF) in the Differential Diagnosis of Thrombocytopenia, Document [id number] V011/07/13 P011/09 Blood specimen (specimen) 03/03/2017 8:59 AM EDT 03/03/2017 9:10 AM EDT Narrative Resulting Agency Comment Spec In Lab Dennys Fajardo MD HEMATOLOGY ORDERAB LES [facility] [place] [address] documented in this encounter Visit Diagnoses Diagnosis Acute ITP Immune thrombocytopenic purpura documented in this encounter Care Teams Lieutenant Fire Fighter Relationship Specialty Start Date End Date Presley Santillan MD [address] [place] [address] PCP - General Internal Medicine 02/10/17 documented as of this encounter
--- OUTSIDE RECORDS SUMMARY | 2024-05-03 17:33 | XMS_ITS | Referral Summary ---
Author Organization [facility] Address [address] [place] [address] Care Team Providers Care Training Officer Name Role Phone Jessica Mohamud KOTA Primary Care Provider [phone] Immunizations Name Administration Dates Next Due Influenza [...] of Treatment Not on file Care Teams Training Officer Relationship Specialty Start Date End Date Jessica Mohamud APRN [address] [place] [address] PCP - General 01/19/19
--- OUTSIDE RECORDS SUMMARY | 2024-05-03 17:33 | XMS_ITS | Encounter Summary ---
Author Organization [facility] [place] [address] Care Team Providers Care Lead Tinner Name Role Phone Presley Santillan MD Primary Care Provider Reason for Referral * Diagnostic Test (Routine) - Closed Specialty Diagnoses / Procedures Referred By Contac t Referred To Contact Radiology Diagnoses Alternating constipation and diarrhea Abdominal pain, unspecified location Procedures MRI Enterography wwo Contrast Litzy Barron APRN [facility] [place] [address] [place] [address] Referral ID Status Reason Start Date Expiration Date V isits Requested Visits Authorized [id number] Closed Specialty Service Requested 04/06/2017 06/04/2017 1 1 Reason for Visit * Diagnostic Test (Routine) - Closed Specialty Diagnoses / Procedures Referred By Contac t Referred To Contact Radiology Diagnoses Alternating constipation and diarrhea Abdominal pain, unspecified location Procedures MRI Enterography wwo Contrast Litzy Barron APRN [facility] [place] [address] [place] [address] Referral ID Status Reason Start Date Expiration Date V isits Requested Visits Authorized [id number] Closed Specialty Service Requested 04/06/2017 06/04/2017 1 1 Encounter Details Date Type Department Care Team (Latest Contact Info) Description 04/17/2017 10:25 AM EDT - 04/17/2017 10:27 AM EDT Hospital Encounter MRI at [facility] [place] [address] Litzy Barron APRN [facility] [place] [address] Alternating constipation and diarrhea; Abdominal pain, unspecified [...] [address] [place] [address] Female [phone] (home) Telephone Information: Presley Santillan MD No primary care provider on file. Allergies Allergen Reactions ??? [place] Other (See Comments) Abdominal pain ??? Cis [...] ( XXX ) You must have a pizza delivery driver present when you check in. This patient has been informed that they require a pizza delivery driver to drive them home after this procedure. In the absence of a pizza delivery driver, IR will not be able to sedate for your scan. Pt verbalized understanding of these instructions during the pre-procedure education via phone. Yes [place] of pizza delivery driver: Mom- carrier Phone number PRIOR SCAN [...] mg documented in this encounter Care Teams Lead Tinner Relationship Specialty Start Date End Date Presley Santillan MD [address] [place] [address] PCP - General Internal Medicine 02/10/17 documented as of this encounter
--- OUTSIDE RECORDS SUMMARY | 2024-05-03 17:33 | XMS_ITS | Encounter Summary ---
Author Organization [facility] Address [facility] [place] [address] Care Team Providers Care Interface Designer Name Role Phone Presley Santillan MD Primary Care Provider [phone] Encounter Details Date Type Department Care Team (Latest Contact Info) Description 03/03/2017 8:36 AM EDT - 03/03/2017 11:59 PM EDT Hospital Encounter [place]ology [place] [id number] Acute ITP; Alternating constipation and diarrhea; Abdominal [...] (ABNORMAL) TSH (03/03/2017 8:59 AM EDT) Pathologist [facility] Thyroid Stimulating Hormone 7.90(H) 0.27 - 4.20 mlU/ML [facility] Blood specimen (specimen) 03/03/2017 8:59 AM EDT 03/03/2017 9:10 AM EDT Narrative Resulting Agency Comment Spec In Lab Litzy Barron VULCAN CREWMEMBER CHEMISTRY ORDERAB LES [facility] [place] [address] * CRP, acute inflammation (03/03/2017 8:59 AM EDT) C-Reactive Protein 1.8 <=4.9 mg/L [facility] Blood specimen (specimen) 03/03/2017 8:59 AM EDT 03/03/2017 9:10 AM EDT Narrative Resulting Agency Comment Spec In Lab Litzy Henrylamar VULCAN CREWMEMBER CHEMISTRY ORDERAB LES Performing Organization Address City/[facility]/ZIP Co de Phone Number [facility] [place] [address] * (ABNORMAL) Sedimentation rate (03/03/2017 8:59 AM EDT) [facility] Sedimentation Rate Automated 38(H) 0 - 20 mm/hr [facility] Blood specimen (specimen) 03/03/2017 8:59 AM EDT 03/03/2017 9:10 AM EDT Narrative Resulting Agency Comment Spec In Lab Litzy Henrylamar VULCAN CREWMEMBER HEMATOLOGY ORDERA BLES Performing Organization Address City/[facility]/ZIP Co de Phone Number [facility] [place] [address] * Differential, Automated (03/03/2017 8:59 AM EDT) [facility] Neutrophil % 51.7 % [facility] Neutrophil Absolute 3.16 1.70 - 6.10 x10(3)/[facility] Lymph % 35.0 % [facility] Lymphocytes Abs 2.1 0.9 - 3.2 x10(3)/[facility] Monocyte % 6.7 % [facility] Monocyte Abs 0.4 0.3 - 0.9 x10(3)/[facility] Eos % 5.7 % [facility] Eosinophils Abs 0.4 0.0 - 0.4 x10(3)/[facility] Basophil % 0.7 % [facility] Baso Absolute 0.0 0.0 - 0.1 x10(3)/[facility] Immature Gran % 0.20 % [facility] Comment: Immature granulocytes(IG's)percentage and absolute count will include metamyelocytes, myelocytes, and promyelocytes. Blood smears from CBCs yielding IG's will be scanned manually for concordance. If this scan disagrees with the automated IG or if promyelocytes are noted, a manual differential will be performed. Immature Gran Absolute 0.01 0.00 - 0.04 x10(3)/[facility] Blood specimen (specimen) 03/03/2017 8:59 AM EDT 03/03/2017 9:10 AM EDT Narrative Resulting Agency Comment Spec In Lab Yovani Fajardo MD HEMATOLOGY ORDERAB LES [facility] [place] [address] * (ABNORMAL) Hemogram (03/03/2017 8:59 AM EDT) White Blood Cell 6.1 4.0 - 9.5 x10(3)/ L [facility] Red Blood Cell 3.87(L) 4.00 - 5.21 x10(6)/mc L [facility] Hemoglobin 12.2 11.7 - 15.5 gm/dL [facility] Hematocrit 35.3(L) 35.7 - 45.8 % [facility] Mean Cell Volume 91.2 82.6 - 94.[address] [facility] Mean Cell Hemoglobin 31.5 27.1 - 32.[address] [facility] Mean Cell Hemoglobin Concentration 34.6 31.7 - 35.0 gm/dL [facility] Platelet 80(L) 145 - 357 x10(3)/mc L [facility] RDW Standard Deviation 43.8 37.0 - 46.[address] [facility] RDW coefficient of variation 13.3 11.5 - 14.1 % [facility] Mean Platelet Volume 10.9 7.6 - 12.[address] [facility] NRBC% auto 0.0 % [facility] NRBC Absolute 0.000 0.000 - 0.000 x10(3)/mc L [facility] Blood specimen (specimen) 03/03/2017 8:59 AM EDT 03/03/2017 9:10 AM EDT Narrative Resulting Agency Comment Spec In Lab Yovani Fajardo MD HEMATOLOGY ORDERAB LES [facility] [place] [address] * Comprehensive metabolic panel (non-fasting) (03/03/2017 8:59 AM EDT) Glucose 95 65 - 199 mg/dL [facility] Comment:Diabetes: >=200 mg/d L plus symptoms Blood Urea Nitrogen 12 8 - 18 mg/dL [facility] Creatinine 0.95 0.70 - 1.20 mg/dL [facility] Comment: Please note that the pediatric reference intervals supplied above were not validated at [facility]. Results from pediatric patients should be interpreted in conjunction to the patient's age, height and muscle mass. Sodium 142 135 - 145 mmol/L [facility] Potassium 3.9 3.5 - 5.0 mmol/L [facility] Comment: Please note: ??Patients with WBC >100,000 may have falsely elevated Potassium levels. ??For accurate Potassium quantification in these patients send serum separator tube (gold top) for subsequent determinations. ??Contact the Clinical Chemistry Laboratory if there are any questions. Chloride 103 98 - 107 mmol/L [facility] Carbon Dioxide 24 22 - 31 mmol/L [facility] Anion Gap 15 5 - 15 mmol/L [facility] Calcium 9.3 8.5 - 10.5 mg/dL [facility] Protein, Total 7.4 6.1 - 8.0 gm/dL [facility] Albumin 4.4 3.2 - 5.2 gm/dL [facility] Aspartate Aminotransferase 24 0 - 30 unit/L [facility] Alanine Aminotransferase 29 0 - 30 unit/L [facility] Alkaline Phosphatase 49 40 - 104 unit/L [facility] Bilirubin, Total 0.5 0.2 - 1.3 mg/dL [facility] Est Glomerular Filtration Rate >60 >=60 [facility] Comment: This estimated GFR (eGFR) [...] the following links into your internet browser. [email or web address] Blood specimen (specimen) 03/03/2017 8:59 AM EDT 03/03/2017 9:10 AM EDT Narrative Resulting Agency Comment Spec In Lab Yovani Fajardo MD CHEMISTRY ORDERABL ES [facility] [place] [address] * (ABNORMAL) Platelet count (03/03/2017 8:59 AM EDT) Platelet 80(L) 145 - 357 x10(3)/mc L [facility] Immature Plt % 5.6 0.0 - 7.4 % [facility] Comment: Limitation of the Immature Platelet Fraction (IPF)-May be less reliable when the platelet count is less than 79f693/uL due to statistical imprecision. The IPF value [...] in a decreased state of production. References: [employer] The Clinical Value of the Immature Platelet Fraction (IPF) in Cell Recovery Document Number [id number] 11/2010 [employer] The Role of the Immature Platelet Fraction (IPF) in the Differential Diagnosis of Thrombocytopenia, Document [id number] V05 P011/09 Blood specimen (specimen) 03/03/2017 8:59 AM EDT 03/03/2017 9:10 AM EDT Narrative Resulting Agency Comment Spec In Lab Yovani Fajardo MD HEMATOLOGY ORDERAB LES Performing Organization Address City/State/[facility] Co de Phone Number [facility] [place] [address] documented in this encounter Visit Diagnoses Diagnosis Acute ITP Immune thrombocytopenic purpura Alternating constipation and diarrhea Other symptoms involving digestive system Abdominal pain, unspecified location documented in this encounter Care Teams Interface Designer Relationship Specialty Start Date End Date Presley Santillan MD [address] [place] [address] PCP - General Internal Medicine 02/10/17 documented as of this encounter
--- OUTSIDE RECORDS SUMMARY | 2024-05-03 17:33 | XMS_ITS | Encounter Summary ---
Author Organization [facility] Address [facility] [place] [address] Care Team Providers Care Insemination Worker Name Role Phone Presley Santillan MD Primary Care Provider [phone] Encounter Details Date Type Department Care Team (Latest Contact Info) Description 02/17/2017 9:50 AM EDT - 02/17/2017 11:59 PM EDT Hospital Encounter Hematology [place] [address] Thrombocytopenia Discharge Disposition: Home Social History Tobacco [...] * CK (02/17/2017 10:05 AM EDT) Pathologist [facility] Creatine Kinase 26 0 - 160 unit/L [facility] Blood specimen (specimen) Venous Draw / Unknown 02/17/2017 10:05 AM EDT 02/17/2017 10:16 AM EDT Narrative Resulting Agency Comment Spec In Lab Yovani Fajardo MD CHEMISTRY ORDERABL ES [facility] [place] [address] * (ABNORMAL) Differential, Automated (02/17/2017 10:05 AM EDT) Pathologist [facility] Neutrophil % 42.1 % [facility] Neutrophil Absolute 3.70 1.70 - 6.10 x10(3)/mc L [facility] Lymph % 44.3 % [facility] Lymphocytes Abs 3.9(H) 0.9 - 3.2 x10(3)/mc L [facility] Monocyte % 9.3 % [facility] Monocyte Abs 0.8 0.3 - 0.9 x10(3)/mc L [facility] Eos % 3.4 % [facility] Eosinophils Abs 0.3 0.0 - 0.4 x10(3)/[facility] Basophil % 0.1 % [facility] Baso Absolute 0.0 0.0 - 0.1 x10(3)/[facility] Immature Gran % 0.80 % [facility] Comment: Immature granulocytes(IG's)percentage and absolute count will include metamyelocytes, myelocytes, and promyelocytes. Blood smears from CBCs yielding IG's will be scanned manually for concordance. If this scan disagrees with the automated IG or if promyelocytes are noted, a manual differential will be performed. Immature Gran Absolute 0.07(H) 0.00 - 0.04 x10(3)/[facility] Blood specimen (specimen) 02/17/2017 10:05 AM EDT 02/17/2017 10:09 AM EDT Narrative Resulting Agency Comment Spec In Lab Yovani Fajardo MD HEMATOLOGY ORDERAB LES [facility] [place] [address] * (ABNORMAL) Hemogram (02/17/2017 10:05 AM EDT) White Blood Cell 8.8 4.0 - 9.5 x10(3)/[facility] Red Blood Cell 3.99(L) 4.00 - 5.21 x10(6)/[facility] Hemoglobin 12.6 11.7 - 15.5 gm/dL [facility] Hematocrit 34.2(L) 35.7 - 45.8 % [facility] Mean Cell Volume 85.7 82.6 - 94.4 fL [facility] Mean Cell Hemoglobin 31.6 27.1 - 32.0 pg [facility] Mean Cell Hemoglobin Concentration 36.8(H) 31.7 - 35.0 gm/dL [facility] Platelet 217 145 - 357 x10(3)/mc L [facility] RDW Standard Deviation 35.8(L) 37.0 - 46.0 fL [facility] RDW coefficient of variation 11.7 11.5 - 14.1 % [facility] Mean Platelet Volume 9.1 7.6 - 12.9 fL [facility] NRBC% auto 0.0 % [facility] NRBC Absolute 0.000 0.000 - 0.000 x10(3)/mc L [facility] Blood specimen (specimen) 02/17/2017 10:05 AM EDT 02/17/2017 10:09 AM EDT Narrative Resulting Agency Comment Spec In Lab Yovani Fajardo MD HEMATOLOGY ORDERAB LES [facility] [place] [address] * Comprehensive metabolic panel (non-fasting) (02/17/2017 10:05 AM EDT) Glucose 89 65 - 199 mg/dL [facility] Comment:Diabetes: >=200 mg/d L plus symptoms Blood Urea Nitrogen 10 8 - 18 mg/dL [facility] Creatinine 0.93 0.70 - 1.20 mg/dL [facility] Comment: Please note that the pediatric reference intervals supplied above were not validated [place] [facility] [place] Results from pediatric patients should be interpreted in conjunction to the patient's age, height and muscle mass. Sodium 138 135 - 145 mmol/L [facility] Potassium 3.8 3.5 - 5.0 mmol/L [facility] Comment: Please note: ??Patients with WBC >100,000 may have falsely elevated Potassium levels. ??For accurate Potassium quantification in these patients send serum separator tube (gold top) for subsequent determinations. ??Contact the Clinical Chemistry Laboratory if there are any questions. Chloride 101 98 - 107 mmol/L [facility] Carbon Dioxide 25 22 - 31 mmol/L [facility] Anion Gap 12 5 - 15 mmol/L [facility] Calcium 8.7 8.5 - 10.5 mg/dL [facility] Protein, Total 7.3 6.1 - 8.0 gm/dL [facility] Albumin 3.8 3.2 - 5.2 gm/dL [facility] Aspartate Aminotransferase 12 0 - 30 unit/L [facility] Alanine Aminotransferase 8 0 - 30 unit/L [facility] Alkaline Phosphatase 41 40 - 104 unit/L [facility] Bilirubin, Total 0.9 0.2 - 1.3 mg/dL [facility] Est Glomerular Filtration Rate >60 >=60 [facility] Comment: This estimated [...] the following links into your internet browser. [email or web address] Blood specimen (specimen) 02/17/2017 10:05 AM EDT 02/17/2017 10:09 AM EDT Narrative Resulting Agency Comment Spec In Lab Yovani Fajardo MD CHEMISTRY ORDERABL ES [facility] [place] [address] documented in this encounter Visit Diagnoses Diagnosis Thrombocytopenia Thrombocytopenia, unspecified documented in this encounter Care Teams Insemination Worker Relationship Specialty Start Date End Date Presley Santillan MD [address] [place] [address] PCP - General Internal Medicine 02/10/17 documented as of this encounter
--- OUTSIDE RECORDS SUMMARY | 2024-05-03 17:33 | XMS_ITS | Encounter Summary ---
Author Organization [facility] [place] [address] Care Team Providers Care Outside Cutter Hand Name Role Phone Presley Santillan MD Primary Care Provider [phone] Encounter Details Date Type Department Care Team (Late st Contact Info) Description 02/10/2017 Telephone [place] [phone] Presley Choudhary MD [facility] DR HEMATOLOGY/[place] [address] Social History Tobacco Use Types Packs/Day Years [...] her now. She agreed to come in [facility] for a direct admission to hematology. Plan: Lab work overnight: CBC, CMP, viral hepatitis panel, coags (PT, PTT, d-dimer, fibrinogen), peripheral smear, B12, folate, MARK, HIV. Will not transfuse unless bleeding. Treatment plan for IVIG +/- steroids tomorrow. documented in this encounter Plan of Treatment Not on file documented as of this encounter Visit Diagnoses Not on filedocumented in this encounter Care Teams Outside Cutter Hand Relationship Specialty Start Date End Date Presley Santillan MD [address] [place] [address] PCP - General Internal Medicine 02/10/17 documented as of this encounter
--- OUTSIDE RECORDS SUMMARY | 2024-05-03 17:33 | XMS_ITS | Encounter Summary ---
Author Organization [facility] [place] [address] Care Team Providers Care Shank Scourer Name Role Phone Presley Santillan MD Primary Care Provider Reason for Visit * Reason Comments Chemotherapy Rituxan #4 of 4 plan rodolfo * Treatment/Therapy Plan Authorization (Routine) - Closed Specialty Diagnoses / Procedures Referred By Contac t Referred To Contact Hematology and Oncology Diagnoses Acute ITP Immune thrombocytopenic purpura Procedures TC RITUXIMAB, 100MG, INJECTION (RITUXAN) Yovani Fajardo MD [facility] [place] [address] [facility] [place] [address] [place] [address] Referral ID Status Reason Start Date Expiration Date Visits Re quested Visits Authorized [id number] Closed 03/06/2017 03/06/2018 52 52 Encounter Details Date Type Department Care Team (Late st Contact Info) Description 04/01/2017 10:00 AM EDT Infusion Hematology Oncology at [address] [phone] Acute ITP Social History Tobacco Use Types [...] mg documented in this encounter Care Teams Shank Scourer Relationship Specialty Start Date End Date Presley Santillan MD [address] [place] [address] PCP - General Internal Medicine 02/10/17 documented as of this encounter
--- OUTSIDE RECORDS SUMMARY | 2024-05-03 17:33 | XMS_ITS | Encounter Summary ---
Author Organization [facility] Address [facility] [place] [address] Care Team Providers Care Cell Tester Name Role Phone Presley Santillan MD Primary Care Provider Encounter Details Date Type Department Care Team (Late st Contact Info) Description 04/22/2017 12:30 PM EDT Office Visit Hematology/Oncology at [address] [phone] Mercedez Whitfield MD [facility] DR HEMATOLOGY [place] [address] Acute ITP Social History Tobacco Use Types [...] purpura documented in this encounter Care Teams Cell Tester Relationship Specialty Start Date End Date Presley Santillan MD [address] [place] [address] PCP - General Internal Medicine 02/10/17 documented as of this encounter
--- OUTSIDE RECORDS SUMMARY | 2024-05-03 17:33 | XMS_ITS | Encounter Summary ---
Author Organization [facility] Address [address] [place] [address] Care Team Providers Care Customer Success Representative Name Role Phone Jessica Mohamud TRAILER DRIVER Primary Care Provider [phone] Encounter Details Date Type Department Care Team (Late st Contact Info) Description 05/02/2022 Lab Requisition [facility] Pathology & Laboratory Medicine - [facility] [address] [place] [address] Jessica Mohamud APRN 26 [facility] [address] [place] [phone] Encounter for other general examination Social History [...] management options, if applicable. 05/05/2022 9:46 EST [facility] Final Diagnosis A. SKIN OF CALF, RIGHT, PUNCH BIOPSY: - Dermatofibroma. - Dermatofibroma present at peripheral tissue edge. B. SKIN OF THIGH, LEFT UPPER, PUNCH BIOPSY: - Dermatofibroma. - Dermatofibroma present at peripheral tissue edge. 05/05/2022 9:46 [facility] Attestation By the signature below, the attending physician certifies that they have 1) personally conducted a gross and/or microscopic examination of the described specimen(s), and/or personally interpreted the results of laboratory testing of the described specimen(s), and 2) personally rendered or confirmed the above diagnosis. 05/05/2022 9:46 [facility] at 0946 Microscopic Description There is irregular epidermal hyperplasia with basal hyperpigmentation . Within the dermis, there is a spindle cell proliferation accompanied by histiocytes. The spindle cells have plump nuclei that vary to a mild degree in size and shape. The proliferation is associated with thick bundles of collagen (collagen trapping) and areas of sclerosis. 05/05/2022 9:46 [facility] Clinical History A. Skin lesion RT calf x 5-6 yrs, changing, growing; B. Skin lesion left upper thigh x 1 yr, changing 05/05/2022 9:46 [facility] Gross Description A. Received in [...] B1. ROBERT BELL 05/02/2022 11:11 05/05/2022 9:46 [facility] Performing Lab [facility] 05/05/2022 9:46 [facility] Scanned Images 05/05/2022 9:46 [facility] Tissue TISSUE SPECIMEN FROM SKIN / Unknown 05/01/2022 8:15 EDT 05/02/2022 9:42 EDT Tissue specimen (specimen) SPECIMEN FROM SKIN / Unknown 05/01/2022 8:15 EDT 05/02/2022 9:42 EDT Jessica Mohamud APRN PATHOLOGY ORDERAB LES [facility] [address] [place] [address] documented in this encounter Visit Diagnoses Diagnosis Encounter for other general examination documented in this encounter Care Teams Customer Success Representative Relationship Specialty Start Date End Date Jessica Mohamud, KOTA [address] [place] [address] PCP - General 01/19/19 documented as of this encounter
--- OUTSIDE RECORDS SUMMARY | 2024-05-03 17:33 | XMS_ITS | Encounter Summary ---
Author Organization [facility] [place] [address] Care Team Providers Care Biology Internship Name Role Phone Presley Santillan MD Primary [...] [facility] [place] [address] [facility] In[facility] [address] [place] [address] Referral ID Status Reason Start Date Expiration Date Visits Re quested Visits Authorized [id number] Closed 03/06/2017 03/06/2018 52 52 Encounter Details Date Type Department Care Team (Late st Contact Info) Description 03/25/2017 10:00 AM EDT Infusion Hematology Oncology at [address] [phone] Acute ITP Social History Tobacco Use Types [...] mg documented in this encounter Care Teams Biology Internship Relationship Specialty Start Date End Date Presley Santillan MD [address] [place] [address] PCP - General Internal Medicine 02/10/17 documented as of this encounter
--- OUTSIDE RECORDS SUMMARY | 2024-05-03 17:33 | XMS_ITS | Encounter Summary ---
Author Organization [facility] Address [facility] [place] [address] Care Team Providers Care Course Instructor Name Role Phone Presley Santillan MD Primary Care Provider [phone] Encounter Details Date Type Department Care Team (Late st Contact Info) Description 02/10/2017 Telephone Hematology [place] [phone] Presley Choudhary MD [facility] DR HEMATOLOGY/[place] [address] Social History Tobacco Use Types Packs/Day Years Used Date Smoking Tobacco: Never Assessed Sex and Gender Information Value Date Recorded Sex Assigned at Not on file Gender Identity Not on file Sexual Orientation Not on file documented as of this encounter Miscellaneous Notes * Telephone Encounter - Presley Choudhary MD - 02/10/2017 8:18 AM EDT Called by a Dr. Santillan from [facility] who saw Daniela Gardner yesterday for an [...] unspecified documented in this encounter Care Teams Course Instructor Relationship Specialty Start Date End Date Presley Santillan MD [address] [place] [address] PCP - General Internal Medicine 02/10/17 documented as of this encounter
--- OUTSIDE RECORDS SUMMARY | 2024-05-03 17:34 | XMS_ITS | Encounter Summary ---
Author Organization [facility] Address [address] [place] [address] Care Team Providers Care Children Teacher Name Role Phone Jessica Mohamud KOTA Primary Care Provider [phone] Encounter Details Date Type Department Care Team (Late st Contact Info) Description 12/12/2019 Lab Requisition [facility] Pathology & Laboratory Medicine - [facility] [address] [place], [place] [address] Outr Resulting Lab, Provider Social History Tobacco [...] Outr Resulting Lab MICROBIOLOGY - GENERAL ORDERABLES [facility] [address] [place] [address] * COVID-19 TESTING (12/12/2019 10:55 EDT) COVID-19 rt-PCR Result Negative Negative 12/13/2019 1:02 EDT [facility] Comment: This test has not [...] history, and epidemiological information. Performed on the [employer] Fusion instrument Performing Lab [place] [facility] 12/13/2019 1:02 EDT [facility] Swab ENTIRE NASOPHARYNX / Unknown 12/12/2019 10:55 EDT 12/12/2019 17:26 EDT Provider Outr Resulting Lab MICROBIOLOGY - GENERAL ORDERABLES [facility] [address] [place] [address] documented in this encounter Visit Diagnoses Not on filedocumented in this encounter Care Teams Children Teacher Relationship Specialty Start Date End Date Jessica Mohamud APRN [address] [place] [address] PCP - General 01/19/19 documented as of this encounter
--- OUTSIDE RECORDS SUMMARY | 2024-05-03 17:34 | XMS_ITS | Encounter Summary ---
Author Organization [facility] Address [address] [place] [address] Care Team Providers Care Clerical Adviser Name Role Phone Unavailable Primary Care Provider Unavailabl e Encounter Details Date Type Department Care Team (Late st Contact Info) Description 12/09/2011 11:35 EDT - 12/09/2011 11:36 EDT Hospital Encounter [address] [address] Halina Segura, LIZBETH [address] [place] [phone] Discharge Disposition: Home or Self Care [...]
--- OUTSIDE RECORDS SUMMARY | 2024-05-03 17:34 | XMS_ITS | Encounter Summary ---
Author Organization [facility] Address [address] [place] [address] Care Team Providers Care Director Style Name Role Phone Jessica Mohamud AQUATIC BIOLOGIST Primary Care Provider [phone] Encounter Details Date Type Department Care Team (Latest Contact Info) Description 06/07/2019 Lab Requisition [facility] Pathology & Laboratory Medicine - [facility] [address] [place] [address] Jessica Mohamud, KOTA [address] [facility] [address] [place] [address] Encounter for general adult medical [...] Risk types, PCR Negative Negative 06/13/2019 14:48 [facility] Comment:No E6 or E7 mRNA is detected from HPV types 16,18,31,33,35,39,45,51,52,56,58,59,66, and 68 by wood cut engraver mediated amplification. Papanicolaou smear specimen (specimen) CERVIX UTERI STRUCTURE / Unknown 06/06/2019 17:30 EST 06/10/2019 15:31 EST Jessica Mohamud APRN MICROBIOLOGY - GE NERAL ORDERABLES [facility] [address] [place] [address] * PAP TEST (06/06/2019 17:30 EST) Specimens A. Cervix and/or Endocervix, , ThinPrep Imaging System with Manual Evaluation 06/13/2019 14:48 [facility] Specimen Adequacy Satisfactory for Evaluation - transformation zone component present 06/13/2019 14:48 [facility] General Categorization Negative for intraepithelial lesion or malignancy 06/13/2019 14:48 [facility] Attestation . 06/13/2019 14:48 [facility] at 1448 Clinical History NONE 06/13/20 19 14:48 [facility] HPV The result for the Human Papillomavirus (HPV) Detection-High Risk Types is Negative. No E6 or E7 mRNA is detected from HPV types 16,18,31,33,35,39 ,45,51,52,56,58,5 9,66, and 68 by wood cut engraver mediated amplification.Jenifer ting was performed on specimen [id number] and was resulted on 06/13/2019 1444 EST by SHALA, LAB INSTRUMENT RESULTS IN 06/13/2019 14:48 [facility] Scanned Images 06/13/2019 14:48 EST [facility] Papanicolaou smear specimen (specimen) CERVIX UTERI STRUCTURE / Unknown 06/06/2019 17:30 EST 06/08/2019 11:41 EST Jessica Mohamud AQUATIC BIOLOGIST PATHOLOGY ORDERAB LES Performing Organization Address [facility] Co de Phone Number [facility] [address] [place] [address] * CHLAMYDIA/N. GONORRHOEAE AMPLIFIED RNA, THINPREP (06/06/2019 17:30 EST) Neisseria gonorrhoeae Result Negative Negative 06/08/2019 15:02 EST [facility] Chlamydia trachomatis Result Negative Negative 06/08/2019 15:02 EST [facility] Papanicolaou smear specimen (specimen) CERVIX UTERI STRUCTURE / Unknown 06/06/2019 17:30 EST 06/08/2019 8:28 EST Jessica Mohamud AQUATIC BIOLOGIST MICROBIOLOGY - GE NERAL ORDERABLES Performing Organization Address [facility] Co de Phone Number [facility] [address] [place] [address] documented in this encounter Visit Diagnoses Diagnosis Encounter for general adult medical examination without abnormal findings Unspecified general medical examination Encounter for screening for malignant neoplasm of cervix Screening for malignant neoplasm of the cervix Encounter for gynecological examination (general) (routine) without abnormal findings documented in this encounter Care Teams Director Style Relationship Specialty Start Date End Date Jessica Mohamud APRN [address] [place] [address] PCP - General 01/19/19 documented as of this encounter
--- OUTSIDE RECORDS SUMMARY | 2024-05-03 17:34 | XMS_ITS | Encounter Summary ---
Author Organization [facility] Address [address] [place] [address] Care Team Providers Care Peoplesoft Developer Name Role Phone Halina Segura NETWORK INFRASTRUCTURE ARCHITECT Primary Care Provider + Encounter Details Date Type Department Care Team (Latest Contact Info) Description 09/04/2015 9:39 EST - 09/04/2015 23:59 EST Hospital Encounter [address] [address] Unknown, Provider, MD Discharge Disposition: Home or Self Care Social History Tobacco Use Types Packs/Day Years Used Date Smoking Tobacco: Never Assessed Sex and Gender Information Value Date Recorded Sex Assigned at Not on file Gender Identity Not on file Sexual Orientation Not on file documented as of this encounter Discharge Disposition Disposition Code Departure Means Destination Home or Self Long-Term documented in this encounter Plan of Treatment Not on file documented as of this encounter Visit Diagnoses Not on filedocumented in this encounter Care Teams Peoplesoft Developer Relationship Specialty Start Date End Date Halina Segura NP [address] [place] [phone] PCP - General 12/11/11 09/06/15 documented as of this encounter
--- OUTSIDE RECORDS SUMMARY | 2024-05-03 17:34 | XMS_ITS | Encounter Summary ---
Author Organization [facility] Address [address] [place] [address] Care Team Providers Care Migratory Farm Hand Name Role Phone Jessica Mohamud KOTA Primary Care Provider [phone] Encounter Details Date Type Department Care Team (Late st Contact Info) Description 12/13/2019 Lab Requisition [facility] Pathology & Laboratory Medicine - [address] [id number] Outr Resulting Lab, Provider Social History Tobacco [...] Salmonella PCR Negative Negative 12/14/2019 13:28 EDT [facility] Shigella/Enteroin vasive E. coli Negative Negative 12/14/2019 13:28 EDT [facility] HN LAB CAMPYLOBACTER PCR Negative Negative 12/14/2019 13:28 EDT [facility] Shiga Toxin PCR Negative Negative 0 13:28 EDT [facility] Feces SPECIMEN FROM RECTUM / Unknown 12/12/2019 20:15 EDT 12/13/2019 17:13 EDT Provider Outr Resulting Lab MICROBIOLOGY - GENERAL ORDERABLES [facility] [address] [place] [address] documented in this encounter Visit Diagnoses Not on filedocumented in this encounter Care Teams Migratory Farm Hand Relationship Specialty Start Date End Date Jessica Mohamud APRN [address] [place], [place] [address] PCP - General 01/19/19 documented as of this encounter
--- OUTSIDE RECORDS SUMMARY | 2024-05-03 17:34 | XMS_ITS | Encounter Summary ---
Author Organization [facility] Address [address] [place] [address] Care Team Providers Care Retoucher Photoengraving Name Role Phone Jessica Mohamud KOTA Primary Care Provider [phone] Encounter Details Date Type Department Care Team (Late st Contact Info) Description 07/19/2020 Lab Requisition [facility] Pathology & Laboratory Medicine - [address] [id number] Outr Resulting Lab, Provider Social History Tobacco [...] in accordance with CLIA regulations, [employer] (CAP) guidelines (Sep 15, 2019), and FDA guidance (Aug 27, 2019). This test is only for use under the Food and Drug Administration's Emergency Use Authorization. Swab ENTIRE NASOPHARYNX / Unknown 07/19/2020 11:06 EST 07/19/2020 15:58 EST Provider Outr Resulting Lab MICROBIOLOGY - GENERAL ORDERABLES [facility] [place], [place] * COVID-19 TESTING (07/19/2020 11:06 EST) COVID-19 rt-PCR Result NEGATIVE Negative 07/20/2020 22:11 EST [facility] Comment: 2019-novel Coronavirus (2019-nCoV) not detected [...] in accordance with CLIA regulations, [employer] (CAP) guidelines (Sep 15, 2019), and FDA guidance (Aug 27, 2019). This test is only for use under the Food and Drug Administration's Emergency Use Authorization. Performing Lab [facility] 07/20/2020 22:11 EST [facility] Swab 07/19/2020 11:0 6 EST 07/19/2020 15:58 EST Provider Outr Resulting Lab MICROBIOLOGY - GENERAL ORDERABLES [facility] [address] [place] [address] [facility] [place], [place] documented in this encounter Visit Diagnoses Not on filedocumented in this encounter Care Teams Retoucher Photoengraving Relationship Specialty Start Date End Date Jessica Mohamud APRN [address] [place] [address] PCP - General 01/19/19 documented as of this encounter
--- OUTSIDE RECORDS SUMMARY | 2024-05-03 17:34 | XMS_ITS | Encounter Summary ---
Author Organization [facility] Address [address] [place] [address] Care Team Providers Care Quality Control Analyst Name Role Phone Unavailable Primary Care Provider Unavailabl e Encounter Details Date Type Department Care Team (Late st Contact Info) Description 12/03/2007 Results Only [facility] [place] [facility] [address] [place] [address] Salyl Garcia ARNP [address] [place] [address] Social History Tobacco Use Types [...] ? YANETH DESOUZA ? Accession #: ? [id number] : ? 1990 (Age: 17) ??F ?Collect Date: ? 12/03/2007 Location: ? [facility] ? Receive Date: ? 12/08/2007 Provider: ?SALLY TORRES Copy to: ? Specimen/Source: ?ThinPrep Pap Test, Cervix/Endocervix, processed on [employer] ThinPrep Imaging System, with manual evaluation Last [...] TORRES PATHOLOGY ORDERAB LES [facility] [address] [place] [address] documented in this encounter Visit Diagnoses Not on filedocumented in this encounter
--- OUTSIDE RECORDS SUMMARY | 2024-05-03 17:34 | XMS_ITS | Encounter Summary ---
Author Organization [facility] Address [address] [place] [address] Care Team Providers Care Insulator Apprentice Name Role Phone Halina Segura BINDER FOLDER OPERATOR Primary Care Provider + Encounter Details Date Type Department Care Team (Late st Contact Info) Description 09/04/2015 Results Only [facility] [phone] Chance Steele, DO [address] [facility] [address] [place], [place] [phone] Social History Tobacco Use Types Packs/Day Years [...] ? YANETH DESOUZA ? Accession #: ? [id number] ? : ? 1990 (Age: 24) ??F [...] K1. Brandie09/05/2015 11:19 AM End of Report [facility] 09/04/2015 9:59 EST 09/05/2015 9:59 EST Chance Steele DO PATHOLOGY ORDER ALBERTA [facility] [address] [place] [address] documented in this encounter Visit Diagnoses Not on filedocumented in this encounter Care Teams Insulator Apprentice Relationship Specialty Start Date End Date Halina Segura NP [address] [place] [phone] PCP - General 12/11/11 09/06/15 documented as of this encounter
--- OUTSIDE RECORDS SUMMARY | 2024-05-03 17:34 | XMS_ITS | Encounter Summary ---
Author Organization [facility] Address [address] [place] [address] Care Team Providers Care Maintenance Technician Name Role Phone Mir Medina MD Primary Care Provider [phone] Encounter Details Date Type Department Care Team (Late st Contact Info) Description 12/05/2015 Results Only [facility] [phone] Odin Casillas NP [address] [place] [address] Social History Tobacco Use Types [...] ? YANETH DESOUZA ? Accession #: ? [id number] : ? 1990 (Age: 25) ??F ?Collect Date: ? 12/05/2015 Location: ? [facility] ? Receive Date: ? 12/07/2015 Provider: ?ODIN CASILLAS MICRO PALEONTOLOGIST Copy to: ? Specimen/Source: ?Pap Test, Cervix/Endocervix, [...] Report Date: ??12/18/2015 13:24 End of Report [facility] 12/05/2015 12/07/2015 Odin Casillas NP PATHOLOGY ORDERABLES [facility] [address] [place] [address] documented in this encounter Visit Diagnoses Not on filedocumented in this encounter Care Teams Maintenance Technician Relationship Specialty Start Date End Date Mir Medina MD PCP - General 09/07/15 01/18/19 documented as of this encounter
--- OUTSIDE RECORDS SUMMARY | 2024-05-03 17:34 | XMS_ITS | Encounter Summary ---
Author Organization [facility] Address [address] [place] [address] Care Team Providers Care Whittling Room Operator Name Role Phone Mir Medina MD Primary Care Provider [phone] Encounter Details Date Type Department Care Team (Late st Contact Info) Description 08/28/2017 Orders Only [facility] Primary Care - [place] [address] [place] [address] Roberta Patricio MD [address] [place] [address] Social History Tobacco Use Types [...] TSH, External 2.47 0.47 - 4.68 mlU/L [facility] Comment:Please see the scann ed report in [facility] for further interpretation. Blood specimen (specimen) 08/28/2017 7:50 EST Roberta Patricio MD CHEMISTRY & BLOOD GA S ORDERABLES [facility] * (ABNORMAL) LIPID PROFILE (INCLUDES CHOLESTEROL, TRIGLYCERIDES, HDL, LDL) (08/28/2017 7:50 EST) Cholesterol, External 182 59 - 199 mg/dL [facility] Triglycerides, External 94 0 - 149 mg/dL [facility] HDL, External 38(A) 40 - 60 mg/dL [facility] LDL, External 125.2 0 - 129 mg/dL [facility] Chol/HDL Ratio, External 4.78(A) 0 - 3.9 [facility] Fasting?, External Yes [facility] Comment:Please see the scann ed report in [facility] for further interpretation. Blood specimen (specimen) 08/28/2017 7:50 EST Roberta Patricio MD CHEMISTRY & BLOOD GA S ORDERABLES [facility] documented in this encounter Visit Diagnoses Not on filedocumented in this encounter Care Teams Whittling Room Operator Relationship Specialty Start Date End Date Mir Medina MD PCP - General 09/07/15 01/18/19 documented as of this encounter
--- OUTSIDE RECORDS SUMMARY | 2024-05-03 17:34 | XMS_ITS | Encounter Summary ---
Author Organization [facility] Address [address] [place] [address] Care Team Providers Care Composing Room Machinist Apprentice Name Role Phone Unavailable Primary Care Provider Unavailabl e Encounter Details Date Type Department Care Team (Late st Contact Info) Description 12/09/2011 Results Only [facility] Laboratory Services - [facility] ([facility]) [address] [place] [address] Halina García, LIZBETH [address] [place] [address] Social History Tobacco Use Types [...] ? YANETH DESOUZA ? Accession #: ? [id number] : ? 1990 (Age: 21) ??F ?Collect Date: ? 12/09/2011 Location: ? [facility] ? Receive Date: ? 12/10/2011 Provider: ?HALINA GARCÍA SALVAGE INSPECTOR Copy to: ? Specimen/Source: ?Pap Test, Cervix/Endocervix, [...] Report [facility] 12/09/2011 12/10/2011 Halina García SALVAGE INSPECTOR PATHOLOGY [facility] [address] [place] [address] documented in this encounter Visit Diagnoses Not on filedocumented in this encounter
--- OUTSIDE RECORDS SUMMARY | 2024-05-03 17:34 | XMS_ITS | Encounter Summary ---
Author Organization [facility] Address [address] [place] [address] Care Team Providers Care Hoseman Name Role Phone Unavailable Primary Care Provider Unavailabl e Encounter Details Date Type Department Care Team (Late st Contact Info) Description 11/15/2009 Results Only [facility] Laboratory Services - [facility] ([facility]) [address] [place] [address] Brown Moy ARNP [address] [place] [address] Social History Tobacco Use Types Packs/Day Years [...] ? YANETH DESOUZA ? Accession #: ? [id number] ? : ? 1990 (Age: 19) ??F [...] PATHOLOGY ORDERAB LES [facility] [address] [place] [address] documented in this encounter Visit Diagnoses Not on filedocumented in this encounter
--- OUTSIDE RECORDS SUMMARY | 2024-05-03 17:34 | XMS_ITS | Encounter Summary ---
Author Organization [facility] Address [address] [place] [address] Care Team Providers Care Sub Arc Operator Name Role Phone Jessica Mohamud KOTA Primary Care Provider [phone] Encounter Details Date Type Department Care Team (Late st Contact Info) Description 12/20/2020 Lab Requisition [facility] Pathology & Laboratory Medicine - [address] [address] Seema Gonzáles MD [facility] [place], [place] [phone] Encounter for other general examination Social History [...] - No specific pathologic features. 12/25/2020 18:37 [facility] Attestation There was significant resident/fellow involvement in the diagnostic evaluation of this case. By the signature below, the attending physician certifies that they have personally conducted a gross and/or microscopic examination of the described specimens and rendered or confirmed the above diagnosis. 12/25/2020 18:37 [facility] at 1837 Clinical History Abnormal uterine bleeding 12/25/2020 18:37 [facility] Gross Description A. Received [...] cut surfaces showing an unremarkable pinpoint lumen. Development Editor sections are submitted as follows: BLOCK TELLEZ A1- fimbria, longitudinally bisected and one cross section A2- opposite fimbria, longitudinally bisected and one cross section A3- anterior cervix A4- anterior endomyometrium A5- posterior cervix A6-A7- posterior endomyometrium ZAHRA KEARNS(ASCP) 12/21/2020 9:59 12/25/2020 18:37 [facility] Resident/Heber w: Ankur Sin MD 12/25/2020 18:37 [facility] Performing Lab [facility] 12/25/2020 18:37 [facility] Scanned Images 12/25/2020 18:37 [facility] Tissue SPECIMEN FROM UTERUS / Unknown 12/20/2020 9:32 EDT 12/20/2020 16:19 EDT Seema Gonzáles MD PATHOLOGY ORDERABLES [facility] [address] [place] [address] documented in this encounter Visit Diagnoses Diagnosis Encounter for other general examination documented in this encounter Care Teams Sub Arc Operator Relationship Specialty Start Date End Date Jessica Mohamud APRN [address] [place] [address] PCP - General 01/19/19 documented as of this encounter
--- OUTSIDE RECORDS SUMMARY | 2024-05-03 17:34 | XMS_ITS | Encounter Summary ---
Author Organization [facility] Address [address] [place] [address] Care Team Providers Care Credit Card Control Clerk Name Role Phone Jessica Mohamud KOTA Primary Care Provider [phone] Encounter Details Date Type Department Care Team (Late st Contact Info) Description 12/13/2019 Lab Requisition [facility] Pathology & Laboratory Medicine - [address] [id number] Outr Resulting Lab, Provider Social History Tobacco [...] Outr Resulting Lab MICROBIOLOGY - GENERAL ORDERABLES [facility] [address] [place] [address] * COVID-19 TESTING (12/13/2019 12:30 EDT) COVID-19 rt-PCR Result Negative Negative 12/13/2019 20:42 EDT [facility] Comment: This test has not [...] history, and epidemiological information. Performed on the [employer] Fusion instrument Performing Lab [place] [facility] 12/13/2019 20:42 EDT [facility] Swab ENTIRE NASOPHARYNX / Unknown 12/13/2019 12:30 EDT 12/13/2019 15:44 EDT Provider Outr Resulting Lab MICROBIOLOGY - GENERAL ORDERABLES [facility] [address] [place] [address] documented in this encounter Visit Diagnoses Not on filedocumented in this encounter Care Teams Credit Card Control Clerk Relationship Specialty Start Date End Date Jessica Mohamud APRN [address] [place] [address] PCP - General 01/19/19 documented as of this encounter
--- OUTSIDE RECORDS SUMMARY | 2024-05-03 17:34 | XMS_ITS | Encounter Summary ---
Author Organization [facility] Address [address] [place] [address] Care Team Providers Care Salesperson Burial Needs Name Role Phone Mir Medina MD Primary Care Provider Encounter Details Date Type Department Care Team (Late st Contact Info) Description 09/02/2017 Orders Only [facility] Adult Primary Care - [place] [address] [place] [address] Roberta Patricio MD [address] [place] [address] Social History Tobacco Use Types [...] on filedocumented in this encounter Care Teams Salesperson Burial Needs Relationship Specialty Start Date End Date Mir Medina MD PCP - General 09/07/15 01/18/19 documented as of this encounter
--- OUTSIDE RECORDS SUMMARY | 2024-05-03 17:34 | XMS_ITS | Encounter Summary ---
Author Organization [facility] Address [address] [place] [address] Care Team Providers Care Rug Dyer Helper Name Role Phone Jessica Mohamud KOTA Primary Care Provider [phone] Encounter Details Date Type Department Care Team (Late st Contact Info) Description 11/06/2020 Lab Requisition [facility] Pathology & Laboratory Medicine - [address] [address] Outr Resulting Lab, Provider Social History Tobacco [...] Outr Resulting Lab MICROBIOLOGY - GENERAL ORDERABLES [facility] [address] [place] [address] * COVID-19 TESTING (11/06/2020 9:40 EDT) COVID-19 rt-PCR Result Negative Negative 11/07/2020 11:23 EDT [facility] Comment: This test has [...] was performed using the ruddy SARS-CoV-2 assay ([employer] on the Ruddy 6800 System Performing Lab Ruddy [address] [facility] 11/07/2020 11:23 EDT [facility] Swab 11/06/2020 9:40 EDT 11/06/2020 21:04 EDT Provider Outr Resulting Lab MICROBIOLOGY - GENERAL ORDERABLES [facility] [address] [place] [address] documented in this encounter Visit Diagnoses Not on filedocumented in this encounter Care Teams Rug Dyer Helper Relationship Specialty Start Date End Date Jessica Mohamud APRN [address] [place] [address] PCP - General 01/19/19 documented as of this encounter
--- OUTSIDE RECORDS SUMMARY | 2024-05-03 17:34 | XMS_ITS | Encounter Summary ---
Author Organization [facility] Address [address] [place] [address] Care Team Providers Care Cto Name Role Phone Mir Medina MD Primary Care Provider [phone] Encounter Details Date Type Department Care Team (Late st Contact Info) Description 01/15/2019 Results Only [facility] [phone] Wil Bhatt MD [address] [place] [address] Social History Tobacco Use Types [...] ? YANETH DELUNA ? Accession #: ? [id number] ? : ? 1990 (Age: 28) ??F ? Collect Date: ? 01/15/2019 ? Location: ? [facility] ? Receive Date: ? 01/17/2019 ? Provider: WIL BHATT MD Copy to: ROSALINDA SALMON TRAFFIC OR SYSTEM DISPATCHER ? Final Pathologic Diagnosis: APPENDIX, APPENDECTOMY: - [...] adjacent to the proximal stapled margin, two parts counter representative cross sections and one half of the longitudinally bisected distal tip are submitted in 1. The remainder of the specimen is submitted as 2-6. Dr. Winters 01/18/2019 2:56 PM End of Report [facility] 01/15/2019 17:2 8 EDT 01/17/2019 17:28 EDT Wil Bhatt MD PATHOLOGY ORDERABLES Performing Organization Address City/State/[facility] Co de Phone Number [facility] [address] [place] [address] documented in this encounter Visit Diagnoses Not on filedocumented in this encounter Care Teams Cto Relationship Specialty Start Date End Date Mir Medina MD PCP - General 09/07/15 01/18/19 documented as of this encounter
--- OUTSIDE RECORDS SUMMARY | 2024-05-03 17:34 | XMS_ITS | Encounter Summary ---
Author Organization [facility] Address [address] [place] [address] Care Team Providers Care Motion Picture Camera Operator Name Role Phone Mir Medina MD Primary Care Provider [phone] Encounter Details Date Type Department Care Team (Latest Contact Info) Description 01/15/2019 11:51 EDT - 01/15/2019 23:59 EDT Hospital Encounter [address] [address] Unknown, Provider, MD Discharge Disposition: Home or Self Care Social History Tobacco Use Types Packs/Day Years Used Date Smoking Tobacco: Never Assessed Sex and Gender Information Value Date Recorded Sex Assigned at Not on file Gender Identity Not on file Sexual Orientation Not on file documented as of this encounter Discharge Disposition Disposition Code Departure Means Destination Home or Self [facility] documented in this encounter Plan of Treatment Not on file documented as of this encounter Visit Diagnoses Not on filedocumented in this encounter Care Teams Motion Picture Camera Operator Relationship Specialty Start Date End Date Mir Medina MD PCP - General 09/07/15 01/18/19 documented as of this encounter
--- OUTSIDE RECORDS SUMMARY | 2024-05-03 17:34 | XMS_ITS | Encounter Summary ---
Author Organization [facility] Address [address] [place] [address] Care Team Providers Care Timber Spotter Name Role Phone Jessica Mohamud KOTA Primary Care Provider [phone] Encounter Details Date Type Department Care Team (Late st Contact Info) Description 07/24/2020 Lab Requisition [facility] Pathology & Laboratory Medicine - [address] [address] Outr Resulting Lab, Provider Social History Tobacco [...] Outr Resulting Lab MICROBIOLOGY - GENERAL ORDERABLES [facility] [address] [place] [address] * COVID-19 TESTING (07/23/2020 16:00 EST) COVID-19 rt-PCR Result Negative Negative 07/25/2020 12:25 EST [facility] Comment: This test has [...] was performed using the ruddy SARS-CoV-2 assay ([employer] on the Ruddy 6800 System Performing Lab Ruddy [address] [facility] 07/25/2020 12:25 EST [facility] Swab 07/23/2020 16:0 0 EST 07/24/2020 15:40 EST Provider Outr Resulting Lab MICROBIOLOGY - GENERAL ORDERABLES [facility] [address] [place] [address] documented in this encounter Visit Diagnoses Not on filedocumented in this encounter Care Teams Timber Spotter Relationship Specialty Start Date End Date Jessica Mohamud APRN [address] [place], [place] [address] PCP - General 01/19/19 documented as of this encounter
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
--- NOTE | 2024-05-03 17:45 | DI.CT_ITS ---
Exam(s) CT ABDOMEN PELVIS W EXAM: CT ABDOMEN PELVIS W CLINICAL HISTORY: abdominal pain LUQ. TECHNIQUE: Imaging Protocol: Axial computed tomography images with coronal and sagittal reformatted images were created and reviewed CONTRAST MATERIAL: Intravenous: Omnipaque 350 Contrast volume:85 ml Oral: / no COMPARISON: CT CT ABDOMEN PELVIS W from 03/18/2020 FINDINGS: ABDOMEN and PELVIS: Lung Bases: No acute findings. Liver: Normal density. No suspicious mass. Gallbladder and biliary tract: No radiodense calculus. No biliary dilation. Pancreas: Normal density. No abnormal calcifications or inflammatory process. No evidence of mass. Spleen: Normal. Kidneys: Normal size, contour and axis. No radiodense stones. No obstructive uropathy. No suspicious masses seen. Adrenal glands: No masses seen. Vasculature: Abdominal aorta non-dilated. Soft tissues: Unremarkable. Bladder: Nearly empty. No calculi. Bowel: The stomach is unremarkable. No small-bowel obstruction. Status post appendectomy. Suture m aterial at cecum. Colon is nearly empty of stool. Question of some wall thickening of the sigmoid w hich could represent colitis versus nondistention. No abnormal surrounding stranding in the fat. Peritoneal cavity: No ascites. No focal collection. No mesenteric inflammatory response. Bones: Unremarkable for age. Reproductive organs: Status post hysterectomy. Lymph nodes: No pathologically enlarged lymph nodes. IMPRESSION:: Question of colitis versus nondistention involving the sigmoid colon. RADIATION DOSE DELIVERED: Total DLP DATA REPOSITORY: All CT scans at this facility are submitted to the National Radiology Data Registry (NRDR) Dose Index Registry (DIR) with the [employer] (ACR). RADIATION OPTIMIZATION: All CT scans at this facility use at least one of these dose optimization te chniques: automated exposure control; mA and/or kV adjustment per patient size (includes targeted exa ms where dose is matched to clinical indication); or iterative reconstruction.
[2024-05-03 17:50] LABS: Bilirubin Negative (Negative); Blood Negative (Negative); Clarity Clear (Clear); Glucose Negative (Negative); Ketones 15 mg/dL (Negative); Leukocyte Esterase Negative (Negative); Nitrite Negative (Negative); Specific Gravity 1.025 (1.005-1.025); Urobilinogen 0.2 mg/dL (Up to 0.2); pH 6.5 (5-8)
[2024-05-03 18:15] LABS: Abs Immature Grans 0.03 10^3/uL (0.0-0.06); Absolute Basophil Count 0.05 10^3/uL (0.0-0.2); Absolute Eosinophil Count 0.04 10^3/uL (0.0-0.7); Absolute Lymphocyte Count 1.27 10^3/uL (1.2-3.4); Absolute Monocyte Count 0.45 10^3/uL (0.1-0.8); Absolute Neutrophil Count 7.09 10^3/uL (1.2-6.7); Basophils % 0.6 %; Eosinophils % 0.4 %; HCT 38.5 % (36.0-46.0); HGB 13.3 g/dL (11.2-15.7); Immature Grans % 0.3 %; Lactate 1.1 mmol/L (0.6-1.4); Lymphocytes % 14.2 %; MCH 31.1 pg (27.0-33.0); MCHC 34.5 % (32.0-36.0); MCV 90 fL (80-95); MPV 8.8 fL (8.0-11.0); Neutrophils % 79.5 %; Platelet Count 274 10^3/uL (130-400); RBC 4.27 10^6/uL (3.93-5.22); RDW 11.7 % (11.7-14.6); RDW-SD 38.3 fL; WBC 8.93 10^3/uL (4.4-10.8)
[2024-05-03] MEDS: ACETAMINOPHEN 1,000 MG/100 ML BAG 400 MG IVPB (18:15)
[2024-05-03] MEDS: Omnipaque 350 MG/ML 100 ML BTL 85 ML IJ (18:22)
[2024-05-03] MEDS: Normal Saline - Diluent 50 ML VIAL IJ (18:24)
[2024-05-03 18:27] LABS: Bacteria Negative HPF (Negative); C & S Indicated? No; Crystals Negative HPF (Negative); Epithelial Cells Many HPF (Negative); Mucus Heavy (Negative); RBC 0-2 HPF (0-2); WBC 0-2 HPF (0-5)
[2024-05-03 18:31] VITALS: BP 121/73; RESP 16; O2SAT 92
[2024-05-03 18:47] LABS: ALT 21 U/L (14-59); AST 23 U/L (15-37); Albumin 4.4 g/dL (3.4-5.0); Alkaline Phosphatase 65 U/L (46-116); Anion Gap 10.8 mmol/L (3-11); BUN 7 mg/dL (7-18); Bilirubin, Total 0.86 mg/dL (0.2-1.0); CO2 25.2 mmol/L (21.0-32.0); CREATININE 0.8 mg/dL (0.55-1.02); Calcium 9.1 mg/dL (8.5-10.1); Chloride 105 mmol/L (98-107); Estimated GFR 98.48 (mL/min/1.73m2); Glucose 128 mg/dL (74-106); Potassium 3.5 mmol/L (3.5-5.1); Sodium 141 mmol/L (136-145); Total Protein 7.6 g/dL (6.4-8.2)
[2024-05-03] MEDS: Ondansetron O.D.T. 4 MG TABEF, 3 TABS/BTL PO (19:07)
[2024-05-03 19:15] VITALS: BP 119/61; PULSE 68; RESP 18; TEMP 37.2; O2SAT 96
== END 2024-05-03 21:21 | disposition home or self-care (01) ==
PROVIDERS: Emergency Provider Physician Assistant; PCP Nurse Practitioner Family
DX: R10.12 Left upper quadrant pain (principal); K52.9 Noninfective gastroenteritis and colitis, unspecified; Z87.891 Personal history of nicotine dependence
CPT/HCPCS: 80053; 96365; 99285; 74177; 81003; 81015; 83605; 85025; 99284; J0131; J3490

== ENCOUNTER 2024-05-16 17:17 | Emergency (ER) | payer MEDICAID, SELFPAY ==
[2024-05-16 17:19] VITALS: BP 116/75; PULSE 82; RESP 16; TEMP 36.5; O2SAT 98
--- OUTSIDE RECORDS SUMMARY | 2024-05-16 17:26 | XMS_ITS | Encounter Summary ---
Author Organization [facility] [place] [address] Care Team Providers Care Front Desk Receptionist Name Role Phone Presley Santillan MD Primary Care Provider [phone] Reason for Visit * Auth/Cert (Routine) Specialty [...] RELEASE) MARK (WRVU 4.97) Christian Haynes MD [facility] [address] [facility] Referral ID Status Reason Start Date Expiration Date Visits Re quested Visits Authorized [id number] 1 1 Encounter Details Date Type Department Care Team (Late st Contact Info) Description 10/20/2022 1:20 PM EDT - 10/20/2022 3:40 PM EDT Surgery [facility] [place] [address] Christian Haynes MD [facility] [address] MEDIAN NERVE DECOMPRESSION (CARPAL TUNNEL RELEASE) (WRVU [...] closest emergency room or call the hospital heading and priming operator at [phone] and ask for physician parachute cushion installer covering for your physician. Questions or problems after 5pm or on a weekend: Call the [facility] heading and priming operator at and ask for the physician parachute cushion installer covering for your doctor. At 1215pm you [...] scheduling, please contact our administrative offices at [phone] Future Appointments Date Time Provider Department Center 11/03/2022 1:40 PM Kandi Bal APRN [facility] PLAS 4M [facility] For clinical questions, please call our nurses at [phone] Both offices are open Thursday thru Thursday 8a - 5p. With emergencies after hours, call the hospital heading and priming operator at [phone] and ask for the Plastic Surgery Resident parachute cushion installer. documented in this encounter Medications at Time [...] 3.66) performed by Marino Smith MD at [facility] ENDOSCOPY ??? PRO COLONOSCOPY, DIAGNOSTIC N/A 06/25/2017 COLONOSCOPY, DIAGNOSTIC performed by Marino Smith MD at [facility] ENDOSCOPY ??? PRO UPPER GI ENDOSCOPY, DIAGNOSTIC N/A 06/25/2017 EGD, UPPER GI ENDOSCOPY performed by Marino Smith MD at [facility] ENDOSCOPY Allergies Allergen Reactions ??? Zofran Odt [Ondansetron] Other (See Comments) MAKES ME RESTLESS ??? [place] Other (See Comments) Abdominal pain ??? Cis [...] Haynes MD - 10/20/2022 2:15 PM EDT [facility] Operative Note Patient Name: Daniela Ruiz : [id number] MR#: [id number] Case Date: 10/20/2022 Surgeon: Surgeon(s) and Role: [...] Justin MD - 10/20/2022 2:15 PM EDT [facility] Operative Note Patient Name: Daniela Ruiz : [id number] MR#: [id number] Case Date: 10/20/2022 Surgeon: Surgeon(s) and Role: [...] right wrist, this is marked with green holy cross. The patient was brought back to the [...] Diagnosis Comments Revise Median N/Carpal Tunnel Surg ([id number]) 10/20/2022 1:43 PM EDT Carpal tunnel syndrome of right wrist Grafting of Autologous Soft Tiss by Direct Excision ([id number]) 10/20/2022 1:43 PM EDT Carpal tunnel syndrome of right wrist Revise Median N/Carpal Tunnel Surg ([id number]) 10/20/2022 1:43 PM EDT Carpal tunnel syndrome [...] RN) documented in this encounter Care Teams Front Desk Receptionist Relationship Specialty Start Date End Date Presley Santillan MD [address] [place] [address] PCP - General Internal Medicine 02/10/17 documented as of this encounter
--- OUTSIDE RECORDS SUMMARY | 2024-05-16 17:26 | XMS_ITS | Continuity of Care Document ---
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 05/16/2024 Has Tobacco Cessation Counseling Been Provided? Yes Information not available 05/16/2024 On What Date Was Tobacco Cessation Counseling Provided? 05/16/2024 Information not available 05/16/2024 Do You Or Have You Ever Used Any Other Forms Of Tobacco Or Nicotine? No mdimick Information not available 06/25/2023 Sex: Female Functional Status None recorded. Mental Status None recorded. Family History Relationship Description Onset Age of this Age Resolved Age Notes LastModified by Organization Details LastModified Time Mother Family history of disorder of lung [email or web address] Not available 2022 03:55:06 Notes:*Problem: Mother- aliv e- hypothyroidism, prediabetes, obesity Father- unknown hx; [...] Recorded Time MMR 12/15/1997 completed Not Available [facility] 05:06:09 MMR 02/16/1990 completed Not Available [facility] 05:06:10 DTaP, unspecified formulation 11/12/1993 completed Not Available [facility] 05/08/2023 05:06:11 DTaP, unspecified formulation 01/20/1989 completed Not Available [facility] 05/08/2023 05:06:11 DTaP, unspecified formulation 03/24/1989 completed Not Available [facility] 05/08/2023 05:06:11 DTaP, unspecified formulation 05/05/1990 completed Not Available [facility] 05/08/2023 05:06:11 DTaP, unspecified formulation 05/26/1989 completed Not Available [facility] 05/08/2023 05:06:12 meningococcal ACWY, unspecified formulation 02/25/2007 completed Not Available [facility] 05/08/2023 05:06:12 Tdap 12/09/2011 completed Not Available [facility] 05:06:12 Tdap 04/08/2016 completed Not Available [facility] 05:06:13 HPV, unspecified formulation 12/17/2007 completed Not Available [facility] 05/08/2023 05:06:13 HPV, unspecified formulation 02/25/2007 completed Not Available [facility] 05/08/2023 05:06:13 HPV, unspecified formulation 05/28/2007 completed Not Available [facility] 05/08/2023 05:06:14 Td(adult) unspecified formulation 12/09/2011 completed Not Available [facility] 05/08/2023 05:06:14 Hib, unspecified formulation 02/16/1990 completed Not Available [facility] 05/08/2023 05:06:17 varicella 1993 completed Not Available [facility] 05:06:18 Hep B, unspecified formulation 10/15/2000 completed Not Available [facility] 05/08/2023 05:06:18 Hep B, unspecified formulation 12/23/1999 completed Not Available [facility] 05/08/2023 05:06:19 Hep B, unspecified formulation 03/21/2000 completed Not Available [facility] 05/08/2023 05:06:19 polio, unspecified formulation 11/12/1993 completed Not Available [facility] 05/08/2023 05:06:20 polio, unspecified formulation 01/20/1989 completed Not Available [facility] 05/08/2023 05:06:20 polio, unspecified formulation 03/24/1989 completed Not Available [facility] 05/08/2023 05:06:20 polio, unspecified formulation 05/05/1990 completed Not Available [facility] 05/08/2023 05:06:20 polio, unspecified formulation 05/26/1989 completed Not Available [facility] 05/08/2023 05:06:20 Past Encounters Encounter ID Performer Location Encounter Start Date Encounter Closed Date Diagnosis/Indication Diagnosis SNOMED-CT Code Diagnosis ICD10 Code [id number] SHANDRA AMANDA MD [address] [address] 03/14/2024 07:58:52 03/14/2024 08:51:53 Attention deficit hyperactivity disorder 940002770 F90.9 Anxiety 21806602 F41.9 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 She reports that since stopping marijuana, her anxiety and irritability have worsened. Daniela has a history of using marijuana to manage anxiety and is now seeking alternative management methods.Therapy Experience - Daniela has had a mixed experience with therapy, including talk therapy, and EMDR. She is open to considering therapy.Medication Management - Daniela is interested in minimizing [...] Effexor (venlafaxine) due to fewer weight gain issues.ADHD Management - Daniela has ADHD and was started on Concerta in December, which has been helpful for her ADHD symptoms, but she still feels anxious.Sleep Issues - Regarding her sleep, Daniela reports that it could be better but is not as bad as it has been. She identifies as a genuine insomniac and has had sleep studies conducted. She can go to bed early and fall asleep quickly, but it otherwise often takes a long time for her to fall asleep.Other Concerns - Daniela mentions that other people [...] use. SHANDRA AMANDA MD [address], [place], [address], [place] - [facility]. 03/14/2024 08:58:52 OBGyn Episode No OBEpisode recorded.
--- OUTSIDE RECORDS SUMMARY | 2024-05-16 17:26 | XMS_ITS | Encounter Summary ---
Author Organization [facility] Address [facility] [place] [address] Care Team Providers Care Newspaper Editor Managing Name Role Phone Presley Santillan MD Primary Care Provider [phone] Reason for Referral * Occupational Therapy (Routine) - Closed Specialty Diagnoses / Procedures Referred By Daryl t Referred To Contact Diagnoses Carpal tunnel syndrome, bilateral Christian Abdullahi MD [facility] [place] [address] Unknown None Referral ID Status Reason Start Date Expiration Date V isits Requested Visits Authorized [id number] Closed Evaluate and Treat 10/17/2022 04/15/2023 12 12 Encounter Details Date Type Department Care Team (Late st Contact Info) Description 10/17/2022 Orders [place] [address] Christian Abdullahi MD [facility] [place] [address] Carpal tunnel syndrome, bilateral (Primary Dx) Social [...] syndrome documented in this encounter Care Teams Newspaper Editor Managing Relationship Specialty Start Date End Date Presley Santillan MD [address] [place] [address] PCP - General Internal Medicine 02/10/17 documented as of this encounter
--- OUTSIDE RECORDS SUMMARY | 2024-05-16 17:26 | XMS_ITS | Encounter Summary ---
Author Organization [facility] Address [facility] [place] [address] Care Team Providers Care Toilet Products Molder Name Role Phone Presley Santillan MD Primary Care Provider [phone] Encounter Details Date Type Department Care Team [...] in a fci (including now)? No 04/18/2022 Sex and Gender Information Value Date Recorded Sex Assigned at Not on file Gender Identity Not on file Sexual Orientation Not on file documented as of this encounter Plan of Treatment Not on file documented as of this encounter Visit Diagnoses Not on filedocumented in this encounter Care Teams Toilet Products Molder Relationship Specialty Start Date End Date Presley Santillan MD [address] [place] [address] PCP - General Internal Medicine 02/10/17 documented as of this encounter
--- OUTSIDE RECORDS SUMMARY | 2024-05-16 17:26 | XMS_ITS | Encounter Summary ---
Author Organization [facility] Address [facility] [place] [address] Care Team Providers Care Dictating Machine Mechanic Name Role Phone Presley Santillan MD Primary Care Provider Reason for Visit * Consultation (Routine) - Closed Specialty Diagnoses / Procedures Referred By Daryl sargent Referred To Contact Plastic Surgery Diagnoses Bilateral carpal tunnel syndrome bilateral carpal tunnel syndrome- for PNF clinic Yovani Negro MD [address] [place] [address] [facility] [address] [place] [address] Referral ID Status Reason Start Date Expiration Date Visits Re quested Visits Authorized [id number] Closed 04/29/2022 04/29/2023 1 1 Encounter Details Date Type Department Care Team (Late st Contact Info) Description 06/27/2022 1:45 PM EST Office [place] [address] Christian Haynes MD [facility] [place] [address] Carpal tunnel syndrome, bilateral Social History Tobacco [...] in a fdc (including now)? No 04/18/2022 Sex and Gender [...] brush. DO NOT wear any rings, nail divehi or artifical nails. The Same Day Surgery [...] to your surgery. Day of Surgery A professional driver is required at time of discharge. [...] For questions pertaining to your surgical date [phone] For nursing related questions [phone] On weekends, holidays or after office hours: Call and ask the explosive operator supervisor to page the Plastic Surgery Resident transverse abdominal muscle surgeon. documented in this encounter Progress Notes * Christian Haynes MD - 06/27/2022 1:45 PM EST Plastic Surgery Consultation Note (Peripheral Nerve Clinic) Provider(s): Christian Haynes/Daniela Justin M.D. CC: S/p bilateral carpal tunnel releases HPI: Daniela Ruiz is a 31 y.o. female who presents to [facility] to discuss her concerns for ongoing issues [...] to understand her options. 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 Past Surgical History: Procedure Laterality Date ??? PRO COLONOSCOPY, BIOPSY N/A 07/18/2019 COLONOSCOPY FLEXIBLE, WITH BX (WRVU 3.66) performed by Marino Smith MD at [facility] ENDOSCOPY ??? PRO COLONOSCOPY, DIAGNOSTIC N/A 06/25/2017 COLONOSCOPY, DIAGNOSTIC performed by Marino Smith MD at [facility] ENDOSCOPY ??? PRO UPPER GI ENDOSCOPY, DIAGNOSTIC N/A 06/25/2017 EGD, UPPER GI ENDOSCOPY performed by Marino Smith MD at [facility] Social History Socioeconomic History ??? Marital [...] Other (See Comments) MAKES ME RESTLESS ??? [place] Other (See Comments) Abdominal pain ??? Cis [...] exploration, nerve repair and fat grafting CPT: 56085,83014, [address] Surgical site: right Side: wrist Anesthesia: General [...] syndrome documented in this encounter Care Teams Dictating Machine Mechanic Relationship Specialty Start Date End Date Presley Santillan MD [address] [place] [address] PCP - General Internal Medicine 02/10/17 documented as of this encounter
--- OUTSIDE RECORDS SUMMARY | 2024-05-16 17:26 | XMS_ITS | Encounter Summary ---
Author Organization [facility] [place] [address] Care Team Providers Care Pattern Filer Name Role Phone Presley Santillan MD Primary Care Provider [phone] Encounter Details Date Type Department Care Team (Late st Contact Info) Description 09/10/2022 Orders Only Neurosurgery at [facility] [place] [address] Daniela Justin MD [facility] [place] [address] Carpal tunnel syndrome, bilateral (Primary Dx) Social [...] place to sleep or slept in a care home (including now)? No 04/18/2022 Sex and Gender Information Value Date Recorded Sex Assigned at Not on file Gender Identity Not on file Sexual Orientation Not on file documented as of this encounter Plan of Treatment Not on file documented as of this encounter Visit Diagnoses Diagnosis Carpal tunnel syndrome, bilateral- Primary Carpal tunnel syndrome documented in this encounter Care Teams Pattern Filer Relationship Specialty Start Date End Date Presley Santillan MD [address] [place] [address] PCP - General Internal Medicine 02/10/17 documented as of this encounter
--- OUTSIDE RECORDS SUMMARY | 2024-05-16 17:26 | XMS_ITS | Encounter Summary ---
Author Organization [facility] Address [facility] [place] [address] Care Team Providers Care Assistant Men'S Lacrosse Coach Name Role Phone Presley Santillan MD Primary Care Provider [phone] Encounter Details Date Type Department Care Team [...] place to sleep or slept in a retirement (including now)? No 04/18/2022 [facility] IPV Inpatient [...] filedocumented in this encounter Care Teams Assistant Men'S Lacrosse Coach Relationship Specialty Start Date End Date Presley Santillan MD [address] [place] [address] PCP - General Internal Medicine 02/10/17 documented as of this encounter
--- OUTSIDE RECORDS SUMMARY | 2024-05-16 17:26 | XMS_ITS | Encounter Summary ---
Author Organization [facility] Address [facility] [place] [address] Care Team Providers Care Tail Edger Name Role Phone Presley Santillan MD Primary Care Provider [phone] Encounter Details Date Type Department Care Team [...] place to sleep or slept in a halfway (including now)? No 04/18/2022 DH IPV Inpatient [...] on filedocumented in this encounter Care Teams Tail Edger Relationship Specialty Start Date End Date Prseley Santillan MD [address] [place] [address] PCP - General Internal Medicine 02/10/17 documented as of this encounter
--- OUTSIDE RECORDS SUMMARY | 2024-05-16 17:26 | XMS_ITS | Encounter Summary ---
Author Organization [facility] Address [facility] [place] [address] Care Team Providers Care Italian Tutor Name Role Phone Presley Santillan MD Primary Care Provider [phone] Encounter Details Date Type Department Care Team (Latest Contact Info) Description 04/18/2022 9:53 AM EDT - 04/18/2022 11:59 PM EDT Hospital Encounter Hematology [place] [id number] Easy bruising Discharge Disposition: Home Social History [...] in a halfway (including now)? No 04/18/2022 Sex and Gender [...] AM EDT Easy bruising PLATELET FUNCTION TEST ([facility]) Routine 04/18/2022 10:10 AM EDT Easy bruising FIBRINOGEN Routine 04/18/2022 10:10 AM EDT Easy bruising FACTOR 8 ASSAY Routine 04/18/2022 10:10 AM EDT Easy bruising HC THYROID STIMULATING HORMONE, SERUM Routine 04/18/2022 10:10 AM EDT Easy bruising BLEEDING SCREEN INTERPRETATION Routine 04/18/2022 9:58 AM EDT documented in this encounter Results * Type and Screen Validity (04/18/2022 10:10 AM EDT) Pathologist [facility] T&S only valid at [facility] LABORATORY Comment:This Type and Screen result is only valid at the [facility] Blood 04/18/2022 10:1 0 AM EDT 04/18/2022 10:16 AM EDT Narrative Resulting Agency Comment Spec In Lab Marshar Evelyn DIXON BLOOD BANK LAB ORDER ALBERTA [facility] [place] [address] * Differential, Automated (04/18/2022 10:10 AM EDT) Neutrophil % 75.8 % [facility] Neutrophil Absolute 5.63 1.70 - 6.10 x10(3)/[facility] LABORATORY Lymph % 18.0 % [facility] Lymphocytes Abs 1.3 0.9 - 3.2 x10(3)/[facility] LABORATORY Monocyte % 4.8 % [facility] Monocyte Abs 0.4 0.3 - 0.9 x10(3)/[facility] LABORATORY Eos % 0.8 % [facility] Eosinophils Abs 0.1 0.0 - 0.4 x10(3)/[facility] LABORATORY Basophil % 0.5 % [facility] Baso Absolute 0.0 0.0 - 0.1 x10(3)/[facility] LABORATORY Immature Gran % 0.10 % [facility] Comment: Immature granulocytes(IG's)percentage and absolute count will include metamyelocytes, myelocytes, and promyelocytes. Blood smears from CBCs yielding IG's will be scanned manually for concordance. If this scan disagrees with the automated IG or if promyelocytes are noted, a manual differential will be performed. Immature Gran Absolute 0.01 0.00 - 0.04 x10(3)/[facility] LABORATORY Blood 04/18/2022 10:1 0 AM EDT 04/18/2022 10:32 AM EDT Narrative Resulting Agency Comment Spec In Lab Samer Evelyn DIXON HEMATOLOGY ORDERABLE S [facility] [place] [address] * Hemogram (04/18/2022 10:10 AM EDT) White Blood Cell 7.4 4.0 - 9.5 x10(3)/[facility] LABORATORY Red Blood Cell 4.26 4.00 - 5.21 x10(6)/[facility] LABORATORY Hemoglobin 13.4 11.7 - 15.5 g/dL [facility] Hematocrit 38.7 35.7 - 45.8 % [facility] Mean Cell Volume 90.8 82.6 - 94.4 fL [facility] Mean Cell Hemoglobin 31.5 27.1 - 32.0 pg [facility] Mean Cell Hemoglobin Concentration 34.6 31.7 - 35.0 g/dL [facility] Platelet 215 145 - 357 x10(3)/[facility] LABORATORY RDW Standard Deviation 40.0 37.0 - 46.0 fL [facility] RDW coefficient of variation 12.0 11.5 - 14.1 % [facility] Mean Platelet Volume 10.8 7.6 - 12.9 fL [facility] NRBC% auto 0.0 % [facility] NRBC Absolute 0.000 0.000 - 0.000 x10(3)/[facility] LABORATORY Blood 04/18/2022 10:1 0 AM EDT 04/18/2022 10:32 AM EDT Narrative Resulting Agency Comment Spec In Lab Samer Evelyn DIXON HEMATOLOGY ORDERABLE S Performing Organization Address City/State/[facility] Co de Phone Number [facility] [place] [address] * Platelet function analysis ([facility]) (04/18/2022 10:10 AM EDT) Col/Epi 112 90 - 160 sec [facility] Comment: The PFA-100 test result [...] hereditary or acquired qualitative platelet disorder, though shelter aspirin treatment may sometimes cause a modestly [...] Narrative Resulting Agency Comment Spec In Lab [facility] HEMATOLOGY ORDERABLE S Performing Organization Address [facility] Co de Phone Number [facility] [place] [address] * Von Willebrand Factor Antigen (04/18/2022 10:10 AM EDT) von Willebrand Factor Antigen 92 % [facility] Comment: ABO blood group has [...] Narrative Resulting Agency Comment Spec In Lab [facility] HEMATOLOGY ORDERABLE S Performing Organization Address [facility] Co de Phone Number [facility] [place] [address] * Von Willebrand Factor Activity (04/18/2022 10:10 AM EDT) Von Willebrand Factor Assay 77 % activity [facility] Comment: ABO blood group has a significant influence on vWF activity levels in normal individuals. Type O has a range of 40 ? 126%. Type A, B, and AB have a range of 49 - 163%. Blood 04/18/2022 10:1 0 AM EDT 04/18/2022 11:56 AM EDT Narrative Resulting Agency Comment Spec In Lab [facility] HEMATOLOGY ORDERABLE S [facility] [place] [address] * Factor 8 assay (04/18/2022 10:10 AM EDT) [facility] Factor VIII Assay 81 50 - 150 % [facility] Blood 04/18/2022 10:1 0 AM EDT 04/18/2022 11:56 AM EDT Narrative Resulting Agency Comment Spec In Lab Samekaty Rivas DO HEMATOLOGY ORDERABLE S Performing Organization Address City/[facility]/ZIP Co de Phone Number [facility] [place] [address] * Fibrinogen (04/18/2022 10:10 AM EDT) [facility] Fibrinogen 308 200 - 393 mg/dL [facility] Comment: A fibrinogen level >100 mg/dL is adequate for hemostasis in most patients without underlying bleeding disorders. Blood 04/18/2022 10:1 0 AM EDT 04/18/2022 11:56 AM EDT Narrative Resulting Agency Comment Spec In Lab Guille Rivas DO HEMATOLOGY ORDERABLE S Performing Organization Address [facility]/ZIP Co de Phone Number [facility] [place] [address] * Thrombin time (04/18/2022 10:10 AM EDT) [facility] Thrombin Time 15 10 - 17 sec [facility] Comment: Specimen drawn more than [...] DO HEMATOLOGY ORDERABLE S Performing Organization Address City/[facility]/ZIP Co de Phone Number [facility] [place] [address] * APTT (04/18/2022 10:10 AM EDT) Partial Thromboplastin Time 34 25 - 37 sec [facility] Comment: The PTT is NOT appropriate for heparin monitoring. Use the Anti-Xa level for heparin monitoring (HEP UFH) or LMWH monitoring (HEP LMW). A PTT less than 37 seconds generally indicates adequate hemostasis. Blood 04/18/2022 10:1 0 AM EDT 04/18/2022 11:56 AM EDT Narrative Resulting Agency Comment Spec In Lab Guille Rivas DO HEMATOLOGY ORDERABLE S Performing Organization Address [facility] Co de Phone Number [facility] [place] [address] * Prothrombin Time (04/18/2022 10:10 AM EDT) Prothrombin Time 11.5 9.4 - 12.5 sec [facility] International Normalization Ratio 1.0 [facility] Comment: An INR <2.0 indicates [...] DO HEMATOLOGY ORDERABLE S Performing Organization Address City/[facility]/ZIP Co de Phone Number [facility] [place] [address] * TSH (04/18/2022 10:10 AM EDT) Thyroid Stimulating Hormone 1.07 0.27 - 4.20 mcIU/mL [facility] Comment: Reference Interval (mcIU/mL): Females: ??First Trimester: 0.23-3.88 ??Second Trimester: 0.22-3.90 ??Third Trimester: 0.44-4.66 Blood 04/18/2022 10:1 0 AM EDT 04/18/2022 10:32 AM EDT Narrative Resulting Agency Comment Spec In Lab Samira Oneill MD CHEMISTRY ORDERABL ES Performing Organization Address [facility]/ZIP Co de Phone Number [facility] [place] [address] * ABORh Type Manual (04/18/2022 10:10 AM EDT) Expires at 2359 on: 04/21/2022 [facility] ABORH Type A Pos [facility] Blood 04/18/2022 10:1 0 AM EDT 04/18/2022 10:16 AM EDT Narrative Resulting Agency Comment Spec In Lab Samira Oneill MD BLOOD BANK LAB ORD ERABLES Performing Organization Address [facility]/ZIP Co de Phone Number [facility] [place] [address] * Bleeding Screen Report (04/18/2022 9:58 AM EDT) Bleeding Screen Report [id number] ? Location: 3K The signing pathologist has [...] Richards Verified: ??04/22/2022 10:07 ??Pathologist Performed at: ??-[facility] Dept. of Pathology, [place], [place] ADDITIONAL STUDIES See Epic for laboratory values. Platelet morphology: Normal ABO Type: A _ PFA-100 platelet function studies can only be performed on blood collected on site at the [facility] facility and are not performed when platelet aggregation studies performed concurrently. The PFA-100 Col/ADP is not performed when PFA-100 Col/EPI is normal. CLINICAL INFORMATION 31 y/o female with history of life long extensive easy bruising. No relevant family history. No antiplatelet or anticoagulant medications. [facility] 04/18/2022 9:58 AM EDT Samer Evelyn DIXON HEMATOLOGY ORDERABLE S [facility] [place] [address] documented in this encounter Visit Diagnoses Diagnosis Easy bruising Other symptoms involving skin and integumentary tissues documented in this encounter Care Teams Italian Tutor Relationship Specialty Start Date End Date Presley Santillan MD [address] [place] [address] PCP - General Internal Medicine 02/10/17 documented as of this encounter
--- OUTSIDE RECORDS SUMMARY | 2024-05-16 17:26 | XMS_ITS | Encounter Summary ---
[place] [address] Care Team Providers Care Spindle Sander Name Role Phone Presley Santillan MD Primary Care Provider [phone] Reason for Referral * Consultation (Routine) - Closed Specialty Diagnoses / Procedures Referred By Contac t Referred To Contact Hematology and Oncology Diagnoses Immune thrombocytopenic purpura Cora Robles APRN [address] [place] [address] [facility] [address] [place] [address] Referral ID Status Reason Start Date Expiration Date V isits Requested Visits Authorized [id number] Closed Consult, Test & Treat PCP Updated and/or Approved 12/25/2021 12/25/2022 1 1 Encounter Details Date Type Department Care Team (Latest Contact Info) Description 12/25/2021 Transcribe Orders eDH Incoming Referrals [phone] Cora Robles APRN [address] [place] [address] Immune thrombocytopenic purpura Social History [...] purpura documented in this encounter Care Teams Spindle Sander Relationship Specialty Start Date End Date Presley Santillan MD [address] [place] [address] PCP - General Internal Medicine 02/10/17 documented as of this encounter
--- OUTSIDE RECORDS SUMMARY | 2024-05-16 17:26 | XMS_ITS | Encounter Summary ---
Author Organization [facility] Address [facility] [place] [address] Care Team Providers Care Thread Singer Name Role Phone Presley Santillan MD Primary Care Provider [phone] Reason for Referral * Occupational Therapy (Routine) - Closed Specialty Diagnoses / Procedures Referred By Daryl sargent Referred To Contact Occupational Therapy Diagnoses Carpal tunnel syndrome, bilateral Vini Greene PA [facility] [place] [address] [facility] [address] [place] [address] Referral ID Status Reason Start Date Expiration Date V isits Requested Visits Authorized [id number] Closed Evaluate and Treat 10/20/2022 10/20/2023 30 [...] RELEASE) MARK (WRVU 4.97) Christian Haynes MD [facility] [place] [address] [facility] Referral ID Status Reason Start Date Expiration Date Visits Re quested Visits Authorized [id number] 1 1 Encounter Details Date Type Department Care Team (Latest Contact Info) Description 10/20/2022 11:29 AM EDT - 10/20/2022 5:00 PM EDT Hospital Encounter [place] [address] Christian Haynes MD [facility] [place] [address] Carpal tunnel syndrome, bilateral Discharge Disposition: Home [...] closest emergency room or call the hospital back digger operator at [phone] and ask for physician microphone operator covering for your physician. Questions or problems after 5pm or on a weekend: Call the [facility] back digger operator at and ask for the physician microphone operator covering for your doctor. At 1215pm you [...] scheduling, please contact our administrative offices at [phone] Future Appointments Date Time Provider Department Center 11/03/2022 1:40 PM Kandi Bal APRN [facility] For clinical questions, please call our nurses at [phone] Both offices are open Thursday thru Thursday 8a - 5p. With emergencies after hours, call the hospital back digger operator at [phone] and ask for the Plastic Surgery Resident microphone operator. documented in this encounter Medications at Time [...] 3.66) performed by Marino Smith MD at [facility] ??? PRO COLONOSCOPY, DIAGNOSTIC N/A 06/25/2017 COLONOSCOPY, DIAGNOSTIC performed by Marino Smith MD at [facility] ??? PRO UPPER GI ENDOSCOPY, DIAGNOSTIC N/A 06/25/2017 EGD, UPPER GI ENDOSCOPY performed by Marino Smith MD at [facility] Allergies Allergen Reactions ??? Zofran Odt [Ondansetron] Other (See Comments) MAKES ME RESTLESS ??? [place] Other (See Comments) Abdominal pain ??? Cis [...] Operative Note Patient Name: Daniela Ruiz : [id number] MR#: [id number] Case Date: 10/20/2022 Surgeon: Surgeon(s) and Role: [...] Operative Note Patient Name: Daniela Ruiz : [id number] MR#: [id number] Case Date: 10/20/2022 Surgeon: Surgeon(s) and Role: [...] right wrist, this is marked with green modoc. The patient was brought back to the [...] Diagnosis Comments Revise Median N/Carpal Tunnel Surg ([id number]) 10/20/2022 1:43 PM EDT Carpal tunnel syndrome of right wrist Grafting of Autologous Soft Tiss by Direct Excision ([id number]) 10/20/2022 1:43 PM EDT Carpal tunnel syndrome of right wrist Revise Median N/Carpal Tunnel Surg ([id number]) 10/20/2022 1:43 PM EDT Carpal tunnel syndrome [...] RN) documented in this encounter Care Teams Thread Singer Relationship Specialty Start Date End Date Presley Santillan MD [address] [place] [address] PCP - General Internal Medicine 02/10/17 documented as of this encounter
--- OUTSIDE RECORDS SUMMARY | 2024-05-16 17:26 | XMS_ITS | Encounter Summary ---
Author Organization [facility] Address [facility] [place] [address] Care Team Providers Care Lawn Caretaker Name Role Phone Presley Santillan MD Primary Care Provider [phone] Encounter Details Date Type Department Care Team [...] on filedocumented in this encounter Care Teams Lawn Caretaker Relationship Specialty Start Date End Date Presley Santillan MD [address] [place] [address] PCP - General Internal Medicine 02/10/17 documented as of this encounter
--- OUTSIDE RECORDS SUMMARY | 2024-05-16 17:26 | XMS_ITS | Encounter Summary ---
Author Organization [facility] [place] [address] Care Team Providers Care Folder Machine Operator Name Role Phone Presley Santillan MD Primary Care Provider [phone] Encounter Details Date Type Department Care Team (Late st Contact Info) Description 06/27/2022 2:00 PM EST [place] [address] Daniela Justin MD [facility] [place] [address] Carpal tunnel syndrome, bilateral Social History Tobacco [...] End Date Presley Santillan MD [address] [place] [address] PCP - General Internal Medicine 02/10/17 documented as of this encounter
--- OUTSIDE RECORDS SUMMARY | 2024-05-16 17:26 | XMS_ITS | Data Portability ---
Author Organization [place] - [facility], [facility] [place] [address] Assessment Encounter Date Assessment Date Assessment LastModified by Organization Details LastModified Time 12/25/2023 12/25/2023 The total time devoted to today's encounter, including both the zvia-hn-dudu time with the patient and/or family/caregive r and qkt-zvhh-co-fac e time I personally spent is 44 [...] available Office Visit 30 2023 11:30A M Gini Amanda Not available Not available Not available Lab vitamin B12 + folate, serum or blood 2023 024 [facility] ([facility]), [address] [place] [address] [place], [address], 12/29/2023 14:33:13 iron + TIBC + ferritin, serum 2023 024 [facility] ([facility]), [address] [place] [address] [place], [address], 12/29/2023 14:33:03 cerulopla smin, serum 2023 024 [facility] ([facility]), [address] [place] [address] [place], [address], 12/29/2023 15:37:11 FSH (follicle -stimulat ing hormone), serum - 1 red and 2 tigers drawn in office. 2023 024 [facility] ([facility]), [address] [place] [address] [place], [address], 12/28/2023 10:04:32 estradiol , serum 2023 024 [facility] ([facility]), [address] [place] [address] [place], [address], 12/29/2023 14:33:42 Referral None recorded. Procedures None recorded. Surgeries None recorded. Imaging None recorded. Medication Orders cyclobenz aprine 5 mg tablet 2023 024 [facility], [address] [place] [address], [id number], 12/25/2023 16:16:34 omeprazol e 20 mg capsule,d elayed release 2023 024 [facility], [address] [place] [address], [id number], 12/25/2023 16:16:24 gabapenti n 300 mg capsule 2023 024 [facility], [address] [place] [address], [id number], 01/08/2024 07:53:34 Concerta 36 mg tablet,ex tended release 2023 024 [facility], [address] [place] [address], [address], 03/13/2024 14:22:11 promethaz ine 25 mg tablet 2023 [facility], [address] [place] [address], [address], 03/14/2024 08:50:18 mirtazapi ne 7.5 mg tablet 2023 [facility], [address] [place] [address], [id number], 03/14/2024 08:50:20 duloxetin e 30 mg capsule,d elayed release 2023 [facility], [address] [place] [address], [id number], 03/14/2024 08:50:18 duloxetin e 60 mg capsule,d elayed release 2023 [facility], [address] [place] [address], [id number], 03/14/2024 08:50:16 Concerta 54 mg tablet,ex tended release 2023 [facility], [address] [place] [address], [id number], 03/14/2024 08:50:23 Patient TargetsNo targets recorded. Patient Instructions Encounter Date Encounter Id Patient Instructions Last Modified By Organization Details Last Modified Time 03/14/2024 [id number] Dear Daniela Ruiz, Thank you for visiting [...] Medicaid. - Work with Nickolas: Our peer technical support assistant will reach out to connect you with [...] if your symptoms change. Warm regards, Dr. Gini Amanda MD eoleson Not available 03/14/2024 08:51:35 Reason for Referral None Reported. Results Created Date Observation Date Name Description Value Unit Range Abnormal Flag Note LastModifiedBy Organization Detail LastModifiedTime 12/07/19 24 12/07/2023 COMPL ETE BLOOD COUNT W/DIF F WBC 6.46 10_3/ uL 4.4-10 .8 normal Not Available [address] [place], [address] 12/07/2023 07:30:03 12/07/19 24 12/07/2023 COMPL ETE BLOOD COUNT W/DIF F RBC 4.26 10_6/ uL 3.93-5 .22 normal Not Available [address] [place], [address] 12/07/2023 07:30:03 12/07/19 24 12/07/2023 COMPL ETE BLOOD COUNT W/DIF F HGB 13.3 g/dL 11.2-1 5.7 normal Not Available [address], [address] 12/07/2023 07:30:03 12/07/19 24 12/07/2023 COMPL ETE BLOOD COUNT W/DIF F HCT 38.3 % 36.0-4 6.0 normal Not Available [address] [place], [address] 12/07/2023 07:30:03 12/07/19 24 12/07/2023 COMPL ETE BLOOD COUNT W/DIF F MCV 90 fL 80-95 normal Not Available Tucker [address] [place], [address] 12/07/2023 07:30:03 12/07/19 24 12/07/2023 COMPL ETE BLOOD COUNT W/DIF F MCH 31.2 pg 27.0-3 3.0 normal Not Available [address] [place], [address] 12/07/2023 07:30:03 12/07/19 24 12/07/2023 COMPL ETE BLOOD COUNT W/DIF F MCHC 34.7 % 32.0-3 6.0 normal Not Available [address] [place], [address] 12/07/2023 07:30:03 12/07/19 24 12/07/2023 COMPL ETE BLOOD COUNT W/DIF F RDW 11.5 % 11.7-1 4.6 low Not Available [address] [place], [address] 12/07/2023 07:30:03 12/07/19 24 12/07/2023 COMPL ETE BLOOD COUNT W/DIF F platelet count 227 10_3/ uL 130-40 0 normal Not Available [address] [place], [address] 12/07/2023 07:30:03 12/07/19 24 12/07/2023 COMPL ETE BLOOD COUNT W/DIF F MPV 9.0 fL 8.0-11 .0 normal Not Available [address] [place], [address] 12/07/2023 07:30:03 12/07/19 24 12/07/2023 COMPL ETE BLOOD COUNT W/DIF F neutrophils % 55.3 % Not Available Francy soliman [address] [place], [address] 12/07/2023 07:30:03 12/07/19 24 12/07/2023 COMPL ETE BLOOD COUNT W/DIF F lymphocytes % 34.5 % Not Available [address] [place], [address] 12/07/2023 07:30:03 12/07/19 24 12/07/2023 COMPL ETE BLOOD COUNT W/DIF F monocytes % 5.7 % Not Available [address] [place], [address] 12/07/2023 07:30:03 12/07/19 24 12/07/2023 COMPL ETE BLOOD COUNT W/DIF F eosinophils % 3.4 % Not Available [address] [place], [address] 12/07/2023 07:30:03 12/07/19 24 12/07/2023 COMPL ETE BLOOD COUNT W/DIF F basophils % 0.8 % Not Available [address] [place], [address] 12/07/2023 07:30:03 12/07/19 24 12/07/2023 COMPL ETE BLOOD COUNT W/DIF F immature grans % 0.3 % Not Available [address] [place], [address] 12/07/2023 07:30:03 12/07/19 24 12/07/2023 COMPL ETE BLOOD COUNT W/DIF F nucleated RBC 0.0 % 0.0-0. 3 normal Not Available [address], [address] 12/07/2023 07:30:03 12/07/19 24 12/07/2023 COMPL ETE BLOOD COUNT W/DIF F absolute neutrophil count 3.57 10_3/ uL 1.2-6. 7 normal Not Available [address] [place], [address] 12/07/2023 07:30:03 12/07/19 24 12/07/2023 COMPL ETE BLOOD COUNT W/DIF F absolute lymphocyte count 2.23 10_3/ uL 1.2-3. 4 normal Not Available [address] [place], [address] 12/07/2023 07:30:03 12/07/19 24 12/07/2023 COMPL ETE BLOOD COUNT W/DIF F absolute monocyte count 0.37 10_3/ uL 0.1-0. 8 normal Not Available [address] [place], [address] 12/07/2023 07:30:03 12/07/19 24 12/07/2023 COMPL ETE BLOOD COUNT W/DIF F absolute eosinophil count 0.22 10_3/ uL 0.0-0. 7 normal Not Available [address] [place], [address] 12/07/2023 07:30:03 12/07/19 24 12/07/2023 COMPL ETE BLOOD COUNT W/DIF F absolute basophil count 0.05 10_3/ uL 0.0-0. 2 normal Not Available [address] [place], [address] 12/07/2023 07:30:03 12/07/19 24 12/07/2023 COMPR EHENS LORRIE METAB OLIC PANEL calcium 8.5 mg/dL 8.5-10 .1 normal Not Available [address] [place], [address] 12/07/2023 07:31:15 12/07/19 24 12/07/2023 COMPR EHENS LORRIE METAB OLIC PANEL glucose 112 mg/dL 74-106 high Not Available Tucker martinez [address] [place], [address] 12/07/2023 07:31:15 12/07/19 24 12/07/2023 COMPR EHENS LORRIE METAB OLIC PANEL BUN 6 mg/dL 7-18 low Not Available Tuckre martinez [address] [place], [address] 12/07/2023 07:31:15 12/07/19 24 12/07/2023 COMPR EHENS LORRIE METAB OLIC PANEL creatinine 0.8 mg/dL 0.55-1 .02 normal Not Available [address] [place], [address] 12/07/2023 07:31:15 12/07/19 24 12/07/2023 COMPR EHENS [...] young er-ag ed adult s. Not Available [address] [place], [address] 12/07/2023 07:31:15 12/07/19 24 12/07/2023 COMPR EHENS LORRIE METAB OLIC PANEL total protein 7.3 g/dL 6.4-8. 2 normal Not Available [address] [place], [address] 12/07/2023 07:31:15 12/07/19 24 12/07/2023 COMPR EHENS LORRIE METAB OLIC PANEL albumin 4.4 g/dL 3.4-5. 0 normal Not Available [address] [place], [address] 12/07/2023 07:31:15 12/07/19 24 12/07/2023 COMPR EHENS LORRIE METAB OLIC PANEL bilirubin, total 0.5 mg/dL 0.2-1. 0 normal Not Available [address] [place], [address] 12/07/2023 07:31:15 12/07/19 24 12/07/2023 COMPR EHENS LORRIE METAB OLIC PANEL alk phos 53 U/L 46-116 normal Not Available [address] [place], [address] 12/07/2023 07:31:15 12/07/19 24 12/07/2023 COMPR EHENS LORRIE METAB OLIC PANEL sodium 141 mmol/ L 136-14 5 normal Not Available [address] [place], [address] 12/07/2023 07:31:15 12/07/19 24 12/07/2023 COMPR EHENS LORRIE METAB OLIC PANEL potassium 3.4 mmol/ L 3.5-5. 1 low Not Available [address] [place], [address] 12/07/2023 07:31:15 12/07/19 24 12/07/2023 COMPR EHENS LORRIE METAB OLIC PANEL chloride 102 mmol/ L 98-107 normal Not Available [address] [place], [address] 12/07/2023 07:31:15 12/07/19 24 12/07/2023 COMPR EHENS LORRIE METAB OLIC PANEL CO2 26.5 mmol/ L 21.0-3 2.0 normal Not Available [address] [place], [address] 12/07/2023 07:31:15 12/07/19 24 12/07/2023 COMPR EHENS LORRIE METAB OLIC PANEL anion gap 12.5 mmol/ L 3-11 high Not Available [address] [place], [address] 12/07/2023 07:31:15 12/07/19 24 12/07/2023 COMPR EHENS LORRIE METAB OLIC PANEL AST 17 U/L 15-37 normal Not Available Tucker martinez [address] [place], [address] 12/07/2023 07:31:15 12/07/19 24 12/07/2023 COMPR EHENS LORRIE METAB OLIC PANEL ALT 21 U/L 14-59 normal Not Available Tucker martinez [address] [place], [address] 12/07/2023 07:31:15 12/22/19 24 12/22/2023 COMPL ETE BLOOD COUNT W/DIF F WBC 7.75 10_3/ uL 4.4-10 .8 normal Not Available [address], [address] 12/22/2023 14:37:47 12/22/19 24 12/22/2023 COMPL ETE BLOOD COUNT W/DIF F RBC 3.99 10_6/ uL 3.93-5 .22 normal Not Available [address] [place], [address] 12/22/2023 14:37:47 12/22/19 24 12/22/2023 COMPL ETE BLOOD COUNT W/DIF F HGB 12.5 g/dL 11.2-1 5.7 normal Not Available [address] [place], [address] 12/22/2023 14:37:47 12/22/19 24 12/22/2023 COMPL ETE BLOOD COUNT W/DIF F HCT 36.4 % 36.0-4 6.0 normal Not Available [address] [place], [address] 12/22/2023 14:37:47 12/22/19 24 12/22/2023 COMPL ETE BLOOD COUNT W/DIF F MCV 91 fL 80-95 normal Not Available [address] [place], [address] 12/22/2023 14:37:47 12/22/19 24 12/22/2023 COMPL ETE BLOOD COUNT W/DIF F MCH 31.3 pg 27.0-3 3.0 normal Not Available [address] [place], [address] 12/22/2023 14:37:47 12/22/19 24 12/22/2023 COMPL ETE BLOOD COUNT W/DIF F MCHC 34.3 % 32.0-3 6.0 normal Not Available [address] [place], [address] 12/22/2023 14:37:47 12/22/19 24 12/22/2023 COMPL ETE BLOOD COUNT W/DIF F RDW 11.4 % 11.7-1 4.6 low Not Available [address] [place], [address] 12/22/2023 14:37:47 12/22/19 24 12/22/2023 COMPL ETE BLOOD COUNT W/DIF F platelet count 222 10_3/ uL 130-40 0 normal Not Available [address] [place], [address] 12/22/2023 14:37:47 12/22/19 24 12/22/2023 COMPL ETE BLOOD COUNT W/DIF F MPV 9.0 fL 8.0-11 .0 normal Not Available [address], [address] 12/22/2023 14:37:47 12/22/19 24 12/22/2023 COMPL ETE BLOOD COUNT W/DIF F neutrophils % 60.0 % Not Available [address] [place], [address] 12/22/2023 14:37:47 12/22/19 24 12/22/2023 COMPL ETE BLOOD COUNT W/DIF F lymphocytes % 32.9 % Not Available [address] [place], [address] 12/22/2023 14:37:47 12/22/19 24 12/22/2023 COMPL ETE BLOOD COUNT W/DIF F monocytes % 4.4 % Not Available [address] [place], [address] 12/22/2023 14:37:47 12/22/19 24 12/22/2023 COMPL ETE BLOOD COUNT W/DIF F eosinophils % 1.8 % Not Available [address] [place], [address] 12/22/2023 14:37:47 12/22/19 24 12/22/2023 COMPL ETE BLOOD COUNT W/DIF F basophils % 0.6 % Not Available [address] [place], [address] 12/22/2023 14:37:47 12/22/19 24 12/22/2023 COMPL ETE BLOOD COUNT W/DIF F immature grans % 0.3 % Not Available [address] [place], [address] 12/22/2023 14:37:47 12/22/19 24 12/22/2023 COMPL ETE BLOOD COUNT W/DIF F nucleated RBC 0.0 % 0.0-0. 3 normal Not Available [address], [address] 12/22/2023 14:37:47 12/22/19 24 12/22/2023 COMPL ETE BLOOD COUNT W/DIF F absolute neutrophil count 4.65 10_3/ uL 1.2-6. 7 normal Not Available [address], [address] 12/22/2023 14:37:47 12/22/19 24 12/22/2023 COMPL ETE BLOOD COUNT W/DIF F absolute lymphocyte count 2.55 10_3/ uL 1.2-3. 4 normal Not Available [address], [address] 12/22/2023 14:37:47 12/22/19 24 12/22/2023 COMPL ETE BLOOD COUNT W/DIF F absolute monocyte count 0.34 10_3/ uL 0.1-0. 8 normal Not Available [address] [place], [address] 12/22/2023 14:37:47 12/22/19 24 12/22/2023 COMPL ETE BLOOD COUNT W/DIF F absolute eosinophil count 0.14 10_3/ uL 0.0-0. 7 normal Not Available [address] [place], [address] 12/22/2023 14:37:47 12/22/19 24 12/22/2023 COMPL ETE BLOOD COUNT W/DIF F absolute basophil count 0.05 10_3/ uL 0.0-0. 2 normal Not Available [address] [place], [address] 12/22/2023 14:37:47 12/22/19 24 12/22/2023 COMPR EHENS LORRIE METAB OLIC PANEL calcium 8.7 mg/dL 8.5-10 .1 normal Not Available [address] [place], [address] 12/22/2023 15:34:02 12/22/19 24 12/22/2023 COMPR EHENS LORRIE METAB OLIC PANEL glucose 86 mg/dL 74-106 normal Not Available Tucker martinez [address] [place], [address] 12/22/2023 15:34:02 12/22/19 24 12/22/2023 COMPR EHENS LORRIE METAB OLIC PANEL BUN 4 mg/dL 7-18 low Not Available Tucker martinez [address] [place], [address] 12/22/2023 15:34:02 12/22/19 24 12/22/2023 COMPR EHENS LORRIE METAB OLIC PANEL creatinine 0.9 mg/dL 0.55-1 .02 normal Not Available [address] [place], [address] 12/22/2023 15:34:02 12/22/19 24 12/22/2023 COMPR EHENS [...] young er-ag ed adult s. Not Available [address] [place], [address] 12/22/2023 15:34:02 12/22/19 24 12/22/2023 COMPR EHENS LORRIE METAB OLIC PANEL total protein 7.0 g/dL 6.4-8. 2 normal Not Available [address] [place], [address] 12/22/2023 15:34:02 12/22/19 24 12/22/2023 COMPR EHENS LORRIE METAB OLIC PANEL albumin 4.2 g/dL 3.4-5. 0 normal Not Available [address] [place], [address] 12/22/2023 15:34:02 12/22/19 24 12/22/2023 COMPR EHENS LORRIE METAB OLIC PANEL bilirubin, total 0.57 mg/dL 0.2-1. 0 normal Not Available [address] [place], [address] 12/22/2023 15:34:02 12/22/19 24 12/22/2023 COMPR EHENS LORRIE METAB OLIC PANEL alk phos 51 U/L 46-116 normal Not Available [address] [place], [address] 12/22/2023 15:34:02 12/22/19 24 12/22/2023 COMPR EHENS LORRIE METAB OLIC PANEL sodium 143 mmol/ L 136-14 5 normal Not Available [address] [place], [address] 12/22/2023 15:34:02 12/22/19 24 12/22/2023 COMPR EHENS LORRIE METAB OLIC PANEL potassium 3.5 mmol/ L 3.5-5. 1 normal Not Available [address] [place], [address] 12/22/2023 15:34:02 12/22/19 24 12/22/2023 COMPR EHENS LORRIE METAB OLIC PANEL chloride 105 mmol/ L 98-107 normal Not Available [address] [place], [address] 12/22/2023 15:34:02 12/22/19 24 12/22/2023 COMPR EHENS LORRIE METAB OLIC PANEL CO2 28.2 mmol/ L 21.0-3 2.0 normal Not Available [address] [place], [address] 12/22/2023 15:34:02 12/22/19 24 12/22/2023 COMPR EHENS LORRIE METAB OLIC PANEL anion gap 9.8 mmol/ L 3-11 normal Not Available [address] [place], [address] 12/22/2023 15:34:02 12/22/19 24 12/22/2023 COMPR EHENS LORRIE METAB OLIC PANEL AST 17 U/L 15-37 normal Not Available Tucker [address] [place], [address] 12/22/2023 15:34:02 12/22/19 24 12/22/2023 COMPR EHENS LORRIE METAB OLIC PANEL ALT 23 U/L 14-59 normal Not Available [address] [place], [address] 12/22/2023 15:34:02 12/22/19 24 12/22/2023 TSH (W/RE F FT4) TSH (w/ref FT4) 0.96 uIU/m L 0.36-3 .74 normal Not Available [address], [address] 12/22/2023 15:34:02 12/25/19 24 12/25/2023 BRI TIN ferritin 67 NG/mL 8-252 normal Not Available [facility] ([facility]) [address] [place] [address] [place], [address], 12/25/2023 17:53:25 12/25/19 24 12/25/2023 VITAM IN B12 vitamin B12 264 pg/mL 193-98 6 normal Not Available [facility] ([facility]) [address] [place] [address] [place], [address], 12/25/2023 17:53:25 12/25/19 24 12/25/2023 FOLAT E folate 10.9 NG/mL 8.6-20 .0 normal Not Available [facility] ([facility]) [address] [place] [address] [place], [address], 12/25/2023 17:53:26 12/25/19 24 12/25/2023 IRON AND IBCT iron 89 ug/dL 50-170 normal Not Available [facility] ([facility]) [address] [place] [address] [place], [address], 12/25/2023 18:02:25 12/25/19 24 12/25/2023 IRON AND IBCT total iron binding capacity 277 ug/dL 250-45 0 normal Not Available [facility] ([facility]) [address] [place] [address] [place], [address], 12/25/2023 18:02:25 12/25/19 24 12/25/2023 IRON AND IBCT transferrin sat 32 % 15-50 normal Not Available [facility] ([facility]) [address] [place] [address] [place], [address], 12/25/2023 18:02:25 12/25/19 24 12/26/2023 ESTRA DIOL [...] eleva saray estra diol resul t in [facility] treat ed with this drug. Test perfo rmed or refer red by [facility] [address] [place] [address] Not Available [facility] ([facility]) [address] [place] [address] [place], [address], 12/28/2023 08:23:22 12/25/19 24 12/26/2023 ESTRA DIOL [...] eleva saray [facility] ed with this drug. Test perfo rmed or refer red by [facility] [employer] [facility] [address], [place] [address] Not Available [facility] ([facility]) [address] [place] [address] [place], [address], 12/28/2023 10:04:31 12/25/19 24 12/28/2023 FSH FSH [...] e patie nts have not been estab lishe d. Test perfo rmed or refer red by [facility] [address] [place] [address] Not Available [address] [place], [address] 12/29/2023 15:37:12 12/25/19 24 12/29/2023 CERUL OPLAS MIN ceruloplasmi n 22.8 mg/dL ----- ----- ----- ----R EFERE NCE VALUE ----- ----- ----- ----- ----- - 20.0 - 51.0 Test Perfo rmed by: [facility] [place] [facility] [address], [place] [address] Lab Direc tor: Arleth Gonzalez nn Ph.D. ; CLIA# [id number] Not Available [address], [place], [address] 12/29/2023 15:37:11 12/25/19 24 12/26/2023 ESTRA DIOL [...] perfo rmed or refer red by [facility] [address] [place] [address] Not Available [address] [place], [address] 12/29/2023 15:37:12 05/03/20 24 05/03/2024 COMPR EHENS LORRIE METAB OLIC PANEL calcium 9.1 mg/dL 8.5-10 .1 normal Not Available [address] [place], [address] 05/03/2024 18:54:12 05/03/20 24 05/03/2024 COMPR EHENS LORRIE METAB OLIC PANEL glucose 128 mg/dL 74-106 high Not Available Tucker martinez [address] [place], [address] 05/03/2024 18:54:12 05/03/20 24 05/03/2024 COMPR EHENS LORRIE METAB OLIC PANEL BUN 7 mg/dL 7-18 normal Not Available Tucker martinez [address] [place], [address] 05/03/2024 18:54:12 05/03/20 24 05/03/2024 COMPR EHENS LORRIE METAB OLIC PANEL creatinine 0.8 mg/dL 0.55-1 .02 normal Not Available [address] [place], [address] 05/03/2024 18:54:12 05/03/20 24 05/03/2024 COMPR EHENS LORRIE METAB OLIC PANEL estimated GFR 98.48 mL/min /1.73M 2 The eGFR is calcu lated from [...] young er-ag ed adult s. Not Available [address] [place], [address] 05/03/2024 18:54:12 05/03/20 24 05/03/2024 COMPR EHENS LORRIE METAB OLIC PANEL total protein 7.6 g/dL 6.4-8. 2 normal Not Available [address] [place], [address] 05/03/2024 18:54:12 05/03/20 24 05/03/2024 COMPR EHENS LORRIE METAB OLIC PANEL albumin 4.4 g/dL 3.4-5. 0 normal Not Available [address] [place], [address] 05/03/2024 18:54:12 05/03/20 24 05/03/2024 COMPR EHENS LORRIE METAB OLIC PANEL bilirubin, total 0.86 mg/dL 0.2-1. 0 normal Not Available [address] [place], [address] 05/03/2024 18:54:12 05/03/20 24 05/03/2024 COMPR EHENS LORRIE METAB OLIC PANEL alk phos 65 U/L 46-116 normal Not Available [address] [place], [address] 05/03/2024 18:54:12 05/03/20 24 05/03/2024 COMPR EHENS LORRIE METAB OLIC PANEL sodium 141 mmol/ L 136-14 5 normal Not Available [address] [place], [address] 05/03/2024 18:54:12 05/03/20 24 05/03/2024 COMPR EHENS [facility] OLIC PANEL potassium 3.5 mmol/ L 3.5-5. 1 normal Not Available [address] [place], [address] 05/03/2024 18:54:12 05/03/20 24 05/03/2024 COMPR EHENS [facility] MET[facility] OLIC PANEL chloride 105 mmol/ L 98-107 normal Not Available [address] [place], [address] 05/03/2024 18:54:12 05/03/20 24 05/03/2024 COMPR EHENS [facility] OLIC PANEL CO2 25.2 mmol/ L 21.0-3 2.0 normal Not Available [address] [place], [address] 05/03/2024 18:54:12 05/03/20 24 05/03/2024 COMPR EHENS [facility] OLIC PANEL anion gap 10.8 mmol/ L 3-11 normal Not Available [address] [place], [address] 05/03/2024 18:54:12 05/03/20 24 05/03/2024 COMPR EHENS [facility] OLIC PANEL AST 23 U/L 15-37 normal Not Available Tucker martinez [address] [place], [address] 05/03/2024 18:54:12 05/03/20 24 05/03/2024 COMPR EHENS [facility] OLIC PANEL ALT 21 U/L 14-59 normal Not Available Tucker martinez [address] [place], [address] 05/03/2024 18:54:12 05/03/20 24 05/03/2024 COMPL ETE BLOOD COUNT W/DIF F WBC 8.93 10_3/ uL 4.4-10 .8 normal Not Available [address], [address] 05/03/2024 18:28:11 05/03/20 24 05/03/2024 COMPL ETE BLOOD COUNT W/DIF F RBC 4.27 10_6/ uL 3.93-5 .22 normal Not Available [address] [place], [address] 05/03/2024 18:28:11 05/03/20 24 05/03/2024 COMPL ETE BLOOD COUNT W/DIF F HGB 13.3 g/dL 11.2-1 5.7 normal Not Available [address] [place], [address] 05/03/2024 18:28:11 05/03/20 24 05/03/2024 COMPL ETE BLOOD COUNT W/DIF F HCT 38.5 % 36.0-4 6.0 normal Not Available [address] [place], [address] 05/03/2024 18:28:11 05/03/20 24 05/03/2024 COMPL ETE BLOOD COUNT W/DIF F MCV 90 fL 80-95 normal Not Available [address] [place], [address] 05/03/2024 18:28:11 05/03/20 24 05/03/2024 COMPL ETE BLOOD COUNT W/DIF F MCH 31.1 pg 27.0-3 3.0 normal Not Available [address] [place], [address] 05/03/2024 18:28:11 05/03/20 24 05/03/2024 COMPL ETE BLOOD COUNT W/DIF F MCHC 34.5 % 32.0-3 6.0 normal Not Available [address] [place], [address] 05/03/2024 18:28:11 05/03/20 24 05/03/2024 COMPL ETE BLOOD COUNT W/DIF F RDW 11.7 % 11.7-1 4.6 normal Not Available [address] [place], [address] 05/03/2024 18:28:11 05/03/20 24 05/03/2024 COMPL ETE BLOOD COUNT W/DIF F platelet count 274 10_3/ uL 130-40 0 normal Not Available [address] [place], [address] 05/03/2024 18:28:11 05/03/20 24 05/03/2024 COMPL ETE BLOOD COUNT W/DIF F MPV 8.8 fL 8.0-11 .0 normal Not Available [address] [place], [address] 05/03/2024 18:28:11 05/03/20 24 05/03/2024 COMPL ETE BLOOD COUNT W/DIF F neutrophils % 79.5 % Not Available [address] [place], [address] 05/03/2024 18:28:11 05/03/20 24 05/03/2024 COMPL ETE BLOOD COUNT W/DIF F lymphocytes % 14.2 % Not Available [address] [place], [address] 05/03/2024 18:28:11 05/03/20 24 05/03/2024 COMPL ETE BLOOD COUNT W/DIF F monocytes % 5.0 % Not Available [address] [place], [address] 05/03/2024 18:28:11 05/03/20 24 05/03/2024 COMPL ETE BLOOD COUNT W/DIF F eosinophils % 0.4 % Not Available [address] [place], [address] 05/03/2024 18:28:11 05/03/20 24 05/03/2024 COMPL ETE BLOOD COUNT W/DIF F basophils % 0.6 % Not Available [address] [place], [address] 05/03/2024 18:28:11 05/03/20 24 05/03/2024 COMPL ETE BLOOD COUNT W/DIF F immature grans % 0.3 % Not Available [address] [place], [address] 05/03/2024 18:28:11 05/03/20 24 05/03/2024 COMPL ETE BLOOD COUNT W/DIF F nucleated RBC 0.0 % 0.0-0. 3 normal Not Available [address] [place], [address] 05/03/2024 18:28:11 05/03/20 24 05/03/2024 COMPL ETE BLOOD COUNT W/DIF F absolute neutrophil count 7.09 10_3/ uL 1.2-6. 7 high Not Available [address] [place], [address] 05/03/2024 18:28:11 05/03/20 24 05/03/2024 COMPL ETE BLOOD COUNT W/DIF F absolute lymphocyte count 1.27 10_3/ uL 1.2-3. 4 normal Not Available [address] [place], [address] 05/03/2024 18:28:11 05/03/20 24 05/03/2024 COMPL ETE BLOOD COUNT W/DIF F absolute monocyte count 0.45 10_3/ uL 0.1-0. 8 normal Not Available [address] [place], [address] 05/03/2024 18:28:11 05/03/20 24 05/03/2024 COMPL ETE BLOOD COUNT W/DIF F absolute eosinophil count 0.04 10_3/ uL 0.0-0. 7 normal Not Available [address] [place], [address] 05/03/2024 18:28:11 05/03/20 24 05/03/2024 COMPL ETE BLOOD COUNT W/DIF F absolute basophil count 0.05 10_3/ uL 0.0-0. 2 normal Not Available [address] [place], [address] 05/03/2024 18:28:11 05/03/20 24 05/03/2024 LACTA TE lactate 1.1 mmol/ L 0.6-1. 4 normal Not Available [address] [place], [address] 05/03/2024 18:19:09 05/03/20 24 05/03/2024 MICRO SCOPI C FINDI NGS WBC 0-2 hpf 0-5 Not Available Tucker [address] [place], [address] 05/03/2024 18:29:14 05/03/20 24 05/03/2024 MICRO SCOPI C FINDI NGS RBC 0-2 hpf 0-2 Not Available Tucker martinez [address] [place], [address] 05/03/2024 18:29:14 05/03/20 24 05/03/2024 MICRO SCOPI C FINDI NGS epithelial cells Many hpf negati ve Not Available [address] [place], [address] 05/03/2024 18:29:14 05/03/20 24 05/03/2024 MICRO SCOPI C FINDI NGS bacteria Negati ve hpf negati ve Not Available [address] [place], [address] 05/03/2024 18:29:14 05/03/20 24 05/03/2024 MICRO SCOPI C FINDI NGS crystals Negati ve hpf negati ve Not Available [address] [place], [address] 05/03/2024 18:29:14 05/03/20 24 05/03/2024 MICRO SCOPI C FINDI NGS mucus Heavy negati ve Not Available [address] [place], [address] 05/03/2024 18:29:14 05/03/20 24 05/03/2024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 [facility] 3 05:28:21 Adjustme nt disorder 40070633 Completed 201805/20/2021 Problem Code: F43.20; Problem Code Type: ICD-10; Not Available [facility] 3 05:28:21 Noninfec tious gastroen teritis 93678429 Completed 201604/28/2022 Not Available [facility] 3 05:28:22 Nausea and vomiting 10901617 Completed 202109/30/2021 Problem Code: R11.2; Problem Code Type: ICD-10; GALA VALERIO MD [address], [place], [address] , [facility] 4 13:41:51 Nasal congesti on 59792476 Completed 201906/04/2020 Problem Code: R09.81; Problem Code Type: ICD-10; Not Available [facility] 3 05:28:23 Thromboc ytopenic disorder 157918753 Completed 201603/25/2023 Problem Code: D69.6; Problem Code Type: ICD-10; Not Available [facility] 3 05:28:23 Cellulit is 888889200 Completed 202104/28/2022 Problem Code: L03.90; Problem Code Type: ICD-10; Not Available [facility] 3 05:28:24 Disorder of skin and/or subcutan eous tissue 28489122 Completed 202106/27/2022 Problem Code: L98.9; Problem Code Type: ICD-10; Not Available [facility] 3 05:28:24 Dyspnea 628002025 Completed 201606/19/2017 Problem Code: R06.00; Problem Code Type: ICD-10; Not Available [facility] 3 05:28:25 Dysmenor boris 840753175 Completed 201704/15/2021 Problem Code: N94.6; Problem Code Type: ICD-10; Not Available [facility] 3 05:28:25 Exposure to communic able disease Completed 202004/15/2021 Problem Code: Z20.9; Problem Code Type: ICD-10; Not Available [facility] 3 05:28:26 Anxiety disorder 124721379 Completed 201503/25/2023 01/15/20 18 - Comments only - Jessica Salmon APRN - continue working on coping skills. Problem Code: F41.9; Problem Code Type: ICD-10; Not Available [facility] 3 05:28:26 Exposure to communic able disease Completed 202008/14/2020 Problem Code: Z20.828; Problem Code Type: ICD-10; Not Available [facility] 3 05:28:27 Viral disease 73196002 Completed 201504/25/2016 Problem Code: B97.89; Problem Code Type: ICD-10; Not Available [facility] 3 05:28:27 Cyclical vomiting syndrome 43258550 Completed 201908/14/2020 Problem Code: G43.A0; Problem Code Type: ICD-10; GINI AMANDA MD [address], [place], [address] , [facility]. 4 22:15:54 Localize d infectio n of skin AND/OR subcutan eous tissue 054343966 Completed 201708/16/2018 Problem Code: L08.9; Problem Code Type: ICD-10; Not Available [facility] 3 05:28:29 Dehydrat ion 27093846 Completed 201906/04/2020 Problem Code: E86.0; Problem Code Type: ICD-10; Not Available [facility] 3 05:28:29 Anorecta l disorder 530361080 Completed 201808/08/2019 Problem Code: K62.89; Problem Code Type: ICD-10; Not Available [facility] 3 05:28:30 Tachycar ivonne 8831835 Completed 201806/06/2019 Problem Code: R00.0; Problem Code Type: ICD-10; Not Available [facility] 3 05:28:30 Stress 42430183 Completed 201605/20/2021 Problem Code: F43.9; Problem Code Type: ICD-10; Not Available [facility] 3 05:28:30 Follicul ar cysts of skin and subcutan eous tissue 582372186 Completed 202103/25/2023 Problem Code: L72.9; Problem Code Type: ICD-10; Not Available [facility] 3 05:28:31 Hypokale katrin 43536022 Completed 201606/06/2019 Problem Code: E87.6; Problem Code Type: ICD-10; Not Available [facility] 3 05:28:31 Abdomina l pain 73591960 Completed 202008/14/2020 Problem Code: R10.9; Problem Code Type: ICD-10; Not Available [facility] 3 05:28:32 Insomnia 191673359 Completed 201703/25/2023 01/15/20 18 - Comments only - Jessica Salmon APRN - work on sleep hygiene. continue gabapent in at bedtime. Problem Code: G47.00; Problem Code Type: ICD-10; Not Available [facility] 3 05:28:33 Diarrhea 08194434 Completed 201809/30/2021 Problem Code: R19.7; Problem Code Type: ICD-10; Not Available [facility] 3 05:28:34 Migraine 24376058 Active 2023 JOYCE BRUNO MA null, [facility] 15:53:40 Hot sweats 719752756 Completed 202301/21/[address], [address] 19:49:18 Tremor 45290760 Active [address], [address] 11:50:50 Cyclical vomiting syndrome 67462116 Active 2023 Problem Code: G43.A0; Problem Code Type: ICD-10; MD Elizabeth [address], [address] 22:15:53 Postural dizzines s 308803690 Active [address], [address] 22:25:13 Feeling irritabl e 75861399 Active [address], [address] 13:12:33 Cannabis hypereme sis syndrome co-occur rent and due to cannabis dependen ce 73801145590 807765 Active [address], [address] 08:15:28 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 Procedures Surgical History None recorded. Imaging Results Imaging Date Name Status LastModified by [facility] Details LastModified Time 04/19/2019 imaging/diagnos tic result completed Information not available 03/13/2024 21:57:01 01/14/2019 imaging/diagnos tic result completed Information not available 03/13/2024 21:57:01 03/18/2020 imaging/diagnos tic result completed Information not available 03/13/2024 21:57:02 10/22/2019 imaging/diagnos tic result completed Information not available 03/13/2024 21:57:03 11/12/2019 imaging/diagnos tic result completed Information not available 03/13/2024 21:57:05 11/12/2019 imaging/diagnos tic result completed Information not available 03/13/2024 21:57:06 03/21/2019 imaging/diagnos tic result completed Information not available 03/13/2024 22:00:39 10/23/2019 imaging/diagnos tic result completed Information not available 03/13/2024 22:00:40 11/13/2019 imaging/diagnos tic result completed Information not available 03/13/2024 22:00:41 07/24/2020 imaging/diagnos tic result completed Information not available 03/13/2024 22:00:42 07/24/2020 imaging/diagnos tic result completed Information not available 03/13/2024 22:00:43 08/07/2018 imaging/diagnos tic result completed Information not available 03/13/2024 22:02:01 11/13/2019 imaging/diagnos tic result completed Information not available 03/13/2024 22:02:18 03/18/2020 imaging/diagnos tic result completed Information not available 03/13/2024 22:02:19 01/14/2019 imaging/diagnos tic result completed Information not available 03/13/2024 22:02:20 05/21/2021 imaging/diagnos tic result completed Information not available 03/13/2024 22:02:21 07/02/2018 imaging/diagnos tic result completed Information not available 03/13/2024 22:02:24 04/20/2019 imaging/diagnos tic result completed Information not available 03/13/2024 22:02:25 01/18/2019 imaging/diagnos tic result completed Information not available 03/13/2024 22:02:26 01/16/2019 imaging/diagnos tic result completed Information not available 03/13/2024 22:02:27 05/03/2024 ultrasound imaging report completed INTERFACE [address] [facility] [place], [address] 05/03/2024 08:53:22 05/03/2024 CT imaging report completed INTERFACE [address] [place], [address] 05/03/2024 18:43:12 Procedure Notes None recorded. Medical Equipment None Reported. Allergies Allergen ID Allergen Name Allergen Category Reaction Reaction Severity Criticality Documentation Date Start Date Code Code System Note Provider Name and Address Organization Details Recorded Time prochlorp erazine maleate medicatio n Not available Not available Not available 05/08/20232022 8706 RxNorm MD Elizabeth [address], [place], [address] [place] [address] 4 08:36:54 32286 lamotrigi ne medicatio n Not available Not available Not available 01/08/2024 06314 RxNorm MD Elizabeth [address], [place], [address] [place] [address] 4 07:50:28 Medications Name Sig Start Date [...] affected area 04/02 completed prescrib ed by [facility] Not Available Not Available Not Available Rituxan 10 mg/mL concentra te,intrav enous 375mg/M2 weekly X 4 doses 05/08 completed [facility] hematolo gy Not Available Not Available Not Available ranitidin e 150 mg tablet take 1 tab po HS for acid reflux 06/19 completed Not Available Not Available Not Available dexametha sone 4 mg tablet 10 tabs daily for 4 days every 21 days 05/08 completed [facility]. Not Available Not Available Not Available [...] by mouth 12/25 completed Prescrib ed by [facility] Not Available Not Available Not [...] Updated DateTime 4 160.02 cm 25.7 kg/m2 78432.8 9 g 96.7 [degF] 97 % 97 % 82 /min 110 mm[Hg] 70 mm[Hg] JOYCE BRUNO MA [facility], [facility]. 4 10:55:15 Date Recorded Body height Body mass index (BMI) Body weight Body temperature Oxygen saturation Oxygen saturation in Arterial blood by Pulse oximetry Heart rate Systolic blood pressure Diastolic blood pressure Provider Name and Address Organization Details Last Updated DateTime 4 160.02 cm 25.7 kg/m2 28881.8 9 g 97.6 [degF] 98 % 98 % 74 /min 110 mm[Hg] 72 mm[Hg] ANGI MARAVILLA MA [facility], [facility] 4 07:34:52 Date Recorded Body height Body mass index (BMI) Body weight Body temperature Oxygen saturation Oxygen saturation in Arterial blood by Pulse oximetry Heart rate Systolic blood pressure Diastolic blood pressure Provider Name and Address Organization Details Last Updated DateTime 4 160.02 cm 25.9 kg/m2 31207.4 9 g 97.8 [degF] 97 % 97 % 100 /min 112 mm[Hg] 68 mm[Hg] JOYCE BRUNO MA [facility], [facility]. 4 13:53:23 Date Recorded Body height Body mass index (BMI) Body weight Body temperature Oxygen saturation Oxygen saturation in Arterial blood by Pulse oximetry Heart rate Systolic blood pressure Diastolic blood pressure Provider Name and Address Organization Details Last Updated DateTime 4 160.02 cm 25.9 kg/m2 82488.4 9 g 96.9 [degF] 97 % 97 % 80 /min 118 mm[Hg] 78 mm[Hg] JOYCE BRUNO MA [facility] 4 08:07:27 Date Recorded Body height Body mass index (BMI) Body weight Respiratory rate Oxygen saturation Oxygen saturation in Arterial blood by Pulse oximetry Heart rate Body temperature Systolic blood pressure Diastolic blood pressure Provider Name and Address Organization Details Last Updated DateTime 4 160.02 cm 25.9 kg/m2 23958.4 9 g 17 /min 99 % 99 % 97 /min 97.8 [degF] 134 mm[Hg] 83 mm[Hg] Cathy Sneed RN [facility] 13:01:39 Social History Question Answer Notes LastModified by Organizat ion Details LastModified Time Tobacco Smoking Status Never Smoker JEANMARIE ELIZONDO, ANDREEA null, [facility] 06/25/2023 09:51:31 1) Date Of Last VPMS [...] Recorded Time MMR 12/15/1997 completed Not Available [facility] 05:06:09 MMR 02/16/1990 completed Not Available [facility] 05:06:10 DTaP, unspecified formulation 11/12/1993 completed Not Available [facility] 05/08/2023 05:06:11 DTaP, unspecified formulation 01/20/1989 completed Not Available [facility] 05/08/2023 05:06:11 DTaP, unspecified formulation 03/24/1989 completed Not Available [facility] 05/08/2023 05:06:11 DTaP, unspecified formulation 05/05/1990 completed Not Available [facility] 05/08/2023 05:06:11 DTaP, unspecified formulation 05/26/1989 completed Not Available [facility] 05/08/2023 05:06:12 meningococcal ACWY, unspecified formulation 02/25/2007 completed Not Available [facility] 05/08/2023 05:06:12 Tdap 12/09/2011 completed Not Available [facility] 05:06:12 Tdap 04/08/2016 completed Not Available [facility] 05:06:13 HPV, unspecified formulation 12/17/2007 completed Not Available [facility] 05/08/2023 05:06:13 HPV, unspecified formulation 02/25/2007 completed Not Available [facility] 05/08/2023 05:06:13 HPV, unspecified formulation 05/28/2007 completed Not Available [facility] 05/08/2023 05:06:14 Td(adult) unspecified formulation 12/09/2011 completed Not Available [facility] 05/08/2023 05:06:14 Hib, unspecified formulation 02/16/1990 completed Not Available [facility] 05/08/2023 05:06:17 varicella 1993 completed Not Available [facility] 05:06:18 Hep B, unspecified formulation 10/15/2000 completed Not Available [facility] 05/08/2023 05:06:18 Hep B, unspecified formulation 12/23/1999 completed Not Available [facility] 05/08/2023 05:06:19 Hep B, unspecified formulation 03/21/2000 completed Not Available [facility] 05/08/2023 05:06:19 polio, unspecified formulation 11/12/1993 completed Not Available [facility] 05/08/2023 05:06:20 polio, unspecified formulation 01/20/1989 completed Not Available [facility] 05/08/2023 05:06:20 polio, unspecified formulation 03/24/1989 completed Not Available [facility] 05/08/2023 05:06:20 polio, unspecified formulation 05/05/1990 completed Not Available [facility] 05/08/2023 05:06:20 polio, unspecified formulation 05/26/1989 completed Not Available [facility] 05/08/2023 05:06:20 Past Encounters Encounter ID Performer Location Encounter Start Date Encounter Closed Date Diagnosis/Indication Diagnosis SNOMED-CT Code Diagnosis ICD10 Code [id number] JESSICA SALMON APRN [address] [address] 06/25/2023 09:34:48 06/25/2023 10:28:30 Steatosis of liver 808852386 K76.0 Fibromyalgia 283403627 M 79.7 Hypothyroidism 54091889 E03.9 Mild inter mittent asthma 783555422 J45.20 Gastroesop hageal reflux disease without esophagitis 327413676 K21.9 Irritable bowel syndrome 43750260 K58.9 Headache 17536975 R51.9 Thrombocyt openic purpura 293364651 D69.3 Anxiety 67115302 F41.9 Menopausal flushing 1983 45596 N95.1 [id number] Mckay Vilchis MD [address] [address] 10/14/2023 13:17:26 10/14/2023 13:38:08 Otitis externa of right ear 8979586019 305708 H60.91 [id number] GINI AMANDA MD [address] [address] 12/25/2023 10:31:02 12/25/2023 12:12:30 Hot sweats 443714307 R61 Tremor 07338381 R25.1 Fibromyalgia 150171428 M 79.7 Gastroesop hageal reflux disease without esophagitis 505784969 K21.9 Cyclical v omiting syndrome 86797235 R11.15 Postural dizziness 07330 7008 R42 [id number] GINI AMANDA MD [address] [address] 01/08/2024 07:14:48 01/08/2024 08:04:56 Feeling irritable 12665941 R45.4 Cannabis h yperemesis syndrome co-occurrent and due to cannabis dependence 1013986887 2157633 R11.15 [id number] GINI AMANDA MD [address] [address] 01/20/2024 13:34:26 01/20/2024 14:21:46 Attention deficit hyperactivity disorder 227748828 F90.9 Feeling irritable 203139 07 R45.4 [id number] GINI AMANDA MD [address] [address] 03/14/2024 07:58:52 03/14/2024 08:51:53 Attention deficit hyperactivity disorder 623396992 F90.9 Anxiety 39446047 F41.9 Cyclical v omiting syndrome 95036423 R11.15 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 [id number] [place] [address] [address] 05/16/2024 10:38:04 05/16/2024 13:54:26 Nausea and vomiting 28318335 R11.2 Health Concerns Section Related Observation LastModified by Organization Detai ls LastModified Time None Recorded Concern Status LastModified by Organization Details LastModified Time None Recorded Advance Directives Directive None Recorded Payers Encounter Date Sequence Insurance Name Policy Number Policy Espinal Covered Member ID Espinal Member ID Guarantor Name 12/25/2023 1 [employer] (MEDICAID) Daniela Ruiz [id number] Daniela Ruiz 01/08/2024 1 [facility] (MEDICAID) Daniela Ruiz [id number] Daniela Ruiz 01/20/2024 1 [employer] (MEDICAID) Daniela Ruiz [id number] Daniela Ruiz 03/14/2024 1 [facility] (MEDICAID) Daniela Ruiz [id number] Daniela K Joseph Notes Date Note Type Note Provider Name and Address Organization Details Recorded Time 12/25/2023 text/html 33 yo F presents to transfer care to new PCP.Has h/o MYERS, back and hip pain, fibro, ITP in remission, IBS, headaches, asthma, GERD.Mental health history including anxiety, depression, PTSD, insomnia, ADHD. Anxiety, depression - on buspirone and mirtazapine. Would like to discuss vomiting issues as well as constellation of neurologic symptoms. Vomiting:Has always had trouble with food, even as child. Had food aversions, anemic. Would eat like a bird. Even if starving, would only eat three bites and then done, felt full. Since around 2017, vomiting has been a big issues. The thought of food will cause nausea.Sometimes fine, can eat small portions and do fine sometimes. Other times, can barely get through a bite and then will vomit in the morning 5-6 times.When this first started it seemed like it was GI pain causing the vomiting. Now just morning vomiting out of nowhere. Reviewed GI records, doesn't seem GI has commented on the vomiting in the past.Avoiding gluten doesn't help.Will go through cycles of that for months at a time. Puking for 4 days at this point right now.Not eating at night, worried about puking the next morning. Or feels rock in stomach after eating.Lower abdomen feels constipated ,or notes movement in intestine, or top of stomach gurgles, then knows she will be in the bathroom vomiting. MJ helps her eat and allows her to keep the food down for a little while. Smokes every day for at least 4 years.Showers help stop the vomiting. Has cut back but not completely quit the MJ in the time she has had the vomiting. If really constipated, even if not pushing the poop out, ends up vomiting. Tried fodmap, gluten free, dairy free, shakes/meal replacement. Has had colonoscopies, endoscopies, imaging. Promethazine - does help when keeps it downSuppository is sedating. Was told once that her descending colon looked swollen on imaging but biopsies have been normal. Has tried linzess, makes gut pain worse. Bentyl, amitriptyline, doesn't help. MJ helps with reactivity, gives her thicker skin.Otherwise, she is easily tearful even if she doesn't feel sad. Finds this frustrating. Neuro issues: Has been having some difficulty getting the right word out even if she knows in her head what she is trying to say. Hands shake if using hand for a long time. 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 R worse than L. Bilateral carpal tunnel, made it worse, no feeling in between two fingers. Wrist hurts on the right, left wrist has electricity type feeling. Gets stabbing pain in neck. easily car sick, roller coaster feeling on flat road even when driving.Is woozy, weak knee feeling, used to be [...] tea around. Can do gatorade. Doesn't like water.The aphasia, hand shaking and weakness, worse over the last year.Roller coaster feeling last 6-8 months, weak knee/woozy last 6-8 months, shoulder symptoms going on for a year or so. GINI AMANDA MD [address], [place], [address], [facility]. 12/25/2023 22:30:40 01/08/2024 text/html Seen 2 weeks ago with c/o daily vomiting in the morning, causing her to eat less. She was advised to stop smoking marijuana to rule out cannabinoid hyperemesis syndrome.The MJ was helping her with irritability and controlling anger.Since stopping the MJ, the vomiting has resolved. She had one day where she used a few joints again and woke up the next day vomiting.However, she has really been struggling with her emotions and mood since then. It is starting to affect her marriage. Feels like everyone hates her. She wrote thoughts down regarding this, see scanned in docs.Has trouble focusing. States her mind moves too fast to allow her to be mindful and present, or think before she responds. The MJ had been helping with this.She called a few days ago, struggling, and we started gabapentin. This has helped significantly. She has tried concerta and vyvanse in the past. Thinks that she wanted to increase the dose but it was causing her HR to increase. Doesn't recall if seroquel was helpful. She talks to people in her parish but not current therapist. Saw psych at [facility] once, didn't like the person she saw. Has otherwise not seen psychiatry. MD [address], [place], [address], [facility]. 01/08/2024 08:16:44 01/20/2024 text/html Daniela present s essentially for a mood follow up.She is doing ok, gabapentin has helped a lot with irritability. However, it is hard to take it consistently with her schedule.Feels if she is doing things according to plan, she does fine but when there are twists in the day/her plan she struggles. Feels frazzled. Hard to find an inner calm.Has been feeling so much better since stopping [...] marijuana then so that may have confounded things.She previously recalled trouble focusing. States her mind moves too fast to allow her to be mindful and present, or think before she responds. The MJ had helped slow her mind down.She endorses difficulty with focus, procrastination since childhood. She puts off tasks that require more thought. She starts multiple tasks without completing them as she goes. Doesn't recall seroquel helping. Some constipation issues. Going to work on probiotics. MD [address], [place], [address], [facility]. 01/21/2024 19:53:52 03/14/2024 text/html Mental Health Follow-Up - Daniela [...] to fewer weight gain issues.ADHD Management - Daneila has ADHD and was started on Concerta [...] nausea is much better since decreasing use. GINI AMANDA MD [address], [place], [address], [facility]. 03/14/2024 08:58:52 OBGyn Episode No OBEpisode recorded.
--- OUTSIDE RECORDS SUMMARY | 2024-05-16 17:26 | XMS_ITS | Encounter Summary ---
Author Organization [facility] Address [facility] [place] [address] Care Team Providers Care Senior Dot Net Developer Name Role Phone Presley Santillan MD Primary Care Provider [phone] Reason for Visit * Reason Comments Follow Up Surgery Encounter Details Date Type Department Care Team (Late st Contact Info) Description 11/03/2022 10:00 AM EDT Office [place] [phone] Jocelyn Padilla PLATER HELPER [facility] [address] Surgery follow-up Social History Tobacco Use Types [...] surgery documented in this encounter Care Teams Senior Dot Net Developer Relationship Specialty Start Date End Date Presley Santillan MD [address] [place] [address] PCP - General Internal Medicine 02/10/17 documented as of this encounter"
--- OUTSIDE RECORDS SUMMARY | 2024-05-16 17:26 | XMS_ITS | Encounter Summary ---
Author Organization [facility] Address [facility] [place] [address] Care Team Providers Care Retail Coverage Merchandiser Name Role Phone Presley Santillan MD Primary Care Provider [phone] Encounter Details Date Type Department Care Team (Latest Contact Info) Description 05/02/2022 12:00 PM EDT TH Visit (TeleHealth) [place]ematology [place] [phone] Samira Oneill MD [facility] [address] [place] [address] Bruising; Benign joint hypermobility syndrome Social History [...] and Rituximab. She has not followed at [facility] (Dr. Whitfield) since 2018. Daniela is here [...] Tunnel Release b/l Appendectomy recently (since 2018). [place] Teeth Hysterectomy (for heavy mensural bleeding). OBSTETRIC [...] odt [ondansetron] Other (See Comments) 06/25/2017 ??? [place] Other (See Comments) 02/10/2017 ??? Cis free [...] use. Rarely drinks alcohol. 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 She has 2 step children from [...] the future as appropriate. Samira Oneill MD Die Stamper, [facility] documented in this encounter Plan of Treatment Not on file documented as of this encounter Visit Diagnoses Diagnosis Bruising Contusion of unspecified site Benign joint hypermobility syndrome documented in this encounter Care Teams Retail Coverage Merchandiser Relationship Specialty Start Date End Date Presley Santillan MD [address] [place] [address] PCP - General Internal Medicine 02/10/17 documented as of this encounter
--- OUTSIDE RECORDS SUMMARY | 2024-05-16 17:26 | XMS_ITS | Encounter Summary ---
Author Organization [facility] Address [facility] [place] [address] Care Team Providers Care Housing Case Manager Name Role Phone Presley Santillan MD Primary Care Provider [phone] Reason for Visit * Reason Comments Establish Care * Consultation (Routine) - Closed Specialty Diagnoses / Procedures Referred By Contac t Referred To Contact Hematology and Oncology Diagnoses Immune thrombocytopenic purpura Cora Robles APRN [address] [place] [address] [facility] Onc [address] [place] [address] Referral ID Status Reason Start Date Expiration Date V isits Requested Visits Authorized [id number] Closed Consult, Test & Treat PCP Updated and/or Approved 12/25/2021 12/25/2022 1 1 Encounter Details Date Type Department Care Team (Latest Contact Info) Description 04/18/2022 9:00 AM EDT Office Visit [place] [address] Samira Oneill MD [facility] [address] [place] [address] Guille Rivas, [facility] HEMATOLOGY/[place] [address] Nory Clemons RN Easy bruising; [...] and Rituximab. She has not followed at [facility] (Dr. Whitfield) since 2018. Daniela is [...] Tunnel Release b/l Appendectomy recently (since 2018). [place] Teeth Hysterectomy (for heavy mensural bleeding). OBSTETRIC [...] odt [ondansetron] Other (See Comments) 06/25/2017 ??? [place] Other (See Comments) 02/10/2017 ??? Cis free [...] use. Rarely drinks alcohol. 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 She has 2 step children from a [...] Lewis DO Fellow, Hematology and Medical Oncology [facility] [place] Pager: [phone], 04/18/22, 2:20 PM * Samira Oneill MD [...] recommendations at that time. Samira Oneill MD Grease Refining Supervisor, [facility] documented in this encounter Plan of Treatment Not on file documented as of this encounter Results * ABORh Type Manual (04/18/2022 10:10 AM EDT) Expires at 6619 on: 04/21/2022 [facility] ABORH Type A Pos [facility] Blood 04/18/2022 10:1 0 AM EDT 04/18/2022 10:16 AM EDT Narrative Resulting Agency Comment Spec In Lab Samira Oneill MD BLOOD BANK LAB ORD ERABLES Performing Organization Address City/[facility] Co de Phone Number [facility] [place] [address] * TSH (04/18/2022 10:10 AM EDT) Thyroid Stimulating Hormone 1.07 0.27 - 4.20 mcIU/mL [facility] Comment: Reference Interval (mcIU/mL): Females: ??First Trimester: 0.23-3.88 ??Second Trimester: 0.22-3.90 ??Third Trimester: 0.44-4.66 Blood 04/18/2022 10:1 0 AM EDT 04/18/2022 10:32 AM EDT Narrative Resulting Agency Comment Spec In Lab Samira Oneill MD CHEMISTRY ORDERABL ES [facility] [place] [address] documented in this encounter Visit Diagnoses Diagnosis Easy bruising Other symptoms involving skin and integumentary tissues Benign joint hypermobility syndrome documented in this encounter Care Teams Housing Case Manager Relationship Specialty Start Date End Date Presley Santillan MD [address] [place] [address] PCP - General Internal Medicine 02/10/17 documented as of this encounter
--- OUTSIDE RECORDS SUMMARY | 2024-05-16 17:26 | XMS_ITS | Encounter Summary ---
Author Organization [facility] Address [facility] [place] [address] Care Team Providers Care Geospatial Applications Developer Name Role Phone Presley Santillan MD Primary Care Provider [phone] Encounter Details Date Type Department Care Team (Late st Contact Info) Description 08/28/2022 Telephone Plastic Surgery at [facility] [place] [phone] Vikki Ford Social History Tobacco Use Types [...] on filedocumented in this encounter Care Teams Geospatial Applications Developer Relationship Specialty Start Date End Date Presley Santillan MD [address] [place] [address] PCP - General Internal Medicine 02/10/17 documented as of this encounter
--- OUTSIDE RECORDS SUMMARY | 2024-05-16 17:26 | XMS_ITS | Clinical Summary ---
Author Organization [facility] Address [facility] [place] [address] Care Team Providers Care Presbyterian Clergy Name Role Phone Presley Santillan MD Primary Care Provider [phone] Allergies Active Allergy Reactions Criticality Noted Date Comments [place] Other (See Comments) 02/10/2017 Abdominal pain Cis [...] 1:13 PM EDT HIV SCREEN, 4TH GENERATION ([facility]/CGP/APD/[facility]H) Routine 02/10/2017 10:37 PM EDT from Last 3 Months or Most Recently Relevant to Health Maintenance Results * Hepatitis C Antibody (02/11/2017 1:13 PM EDT) Hepatitis C Antibody Negative Negative [facility] Comment: An updated Hepatitis C Ab assay reagent was implemented on 09/10/16. Please contact Dr. Alvarez at [phone] with any questions or concerns. Blood specimen (specimen) 02/11/2017 1:13 PM EDT 02/11/2017 1:32 PM EDT Narrative Resulting Agency Comment Spec In Lab Hemal Goodrich Jr., MD CHEMISTRY ORDERABLES [facility] [place] [address] * HIV Screen, 4th Generation (02/10/2017 10:37 PM EDT) HIV Ab/Ag Screen Negative Negative [facility] Comment: This 4th Generation [...] Organization Address City/[facility] Co de Phone Number [facility] [place] [address] from Last 3 Months or Most Recently [...] capacity to make decision: Yes Care Teams Presbyterian Clergy Relationship Specialty Start Date End Date Presley Santillan MD [address] [place] [address] PCP - General Internal Medicine 02/10/17
--- OUTSIDE RECORDS SUMMARY | 2024-05-16 17:26 | XMS_ITS | Encounter Summary ---
Author Organization [facility] Address [facility] [place] [address] Care Team Providers Care Archery Instructor Name Role Phone Presley Santillan MD Primary Care Provider Encounter Details Date Type Department Care Team (Late st Contact Info) Description 11/03/2022 Telephone Plastic Surgery at [facility] [place] [phone] Vikki Ford Social History Tobacco Use Types [...] on filedocumented in this encounter Care Teams Archery Instructor Relationship Specialty Start Date End Date Presley Santillan MD [address] [place] [address] PCP - General Internal Medicine 02/10/17 documented as of this encounter
--- OUTSIDE RECORDS SUMMARY | 2024-05-16 17:26 | XMS_ITS | Encounter Summary ---
Author Organization [facility] [place] [address] Care Team Providers Care Senior Mechanical Technician Name Role Phone Presley Santillan MD Primary Care Provider [phone] Reason for Visit * Auth/Cert (Routine) Specialty [...] RELEASE) MARK (WRVU 4.97) Christian Abdullahi MD [facility] [place] [address] [facility] Referral ID Status Reason Start Date Expiration Date Visits Re quested Visits Authorized [id number] 1 1 Encounter Details Date Type Department Care Team (Late st Contact Info) Description 10/20/2022 1:44 PM EDT Anesthesia Event [place] [phone] Shawna Fletcher MD Palmer, Justin D, MD [facility] [place] [address] Anesthesia Record Procedure Summary Procedure [...] 1231; metacarpal vein (top of hand), left; oxkq-xvu-eruzka catheter system; Anatomical Landmarks; 22 gauge; emk; [...] Procedure Summary Date: 10/20/22 Room / Location: [address] Anesthesia Start: 1344 Anesthesia Stop: 1554 [...] All Anesthesia Providers: Anesthesiologist: Shawna Fletcher MD Superintendent Maintenance: Eder Nice MD Vitals Value Taken Time BP 106/76 10/20/22 1600 Temp 36.2 ??C (97.2 ??F) 10/20/22 1551 Pulse 76 10/20/22 1603 Resp 14 10/20/22 1551 SpO2 100 % 10/20/22 1602 Pain Level 0 10/20/22 1600 Vitals shown include unvalidated device data. Patient Location: PACU/[facility] Level of Consciousness: Conscious but Sleepy [...] 3.66) performed by Marino Smith MD at [facility] ??? PRO COLONOSCOPY, DIAGNOSTIC N/A 06/25/2017 COLONOSCOPY, DIAGNOSTIC performed by Marino Smith MD at [facility] ??? PRO UPPER GI ENDOSCOPY, DIAGNOSTIC N/A 06/25/2017 EGD, UPPER GI ENDOSCOPY performed by Marino Smith MD at [facility] Social History Tobacco Use ??? [...] Other (See Comments) MAKES ME RESTLESS ??? [place] Other (See Comments) Abdominal pain ??? Cis [...] mg documented in this encounter Care Teams Senior Mechanical Technician Relationship Specialty Start Date End Date Presley Santillan MD [address] [place] [address] PCP - General Internal Medicine 02/10/17 documented as of this encounter
--- OUTSIDE RECORDS SUMMARY | 2024-05-16 17:26 | XMS_ITS | Encounter Summary ---
Author Organization [facility] Address [facility] [place] [address] Care Team Providers Care Used Car Lot Porter Name Role Phone Presley Santillan MD Primary Care Provider [phone] Encounter Details Date Type Department Care Team (Late st Contact Info) Description 09/04/2022 Telephone Plastic Surgery at [facility] [place] [phone] Julianne Urrutia Social History Tobacco Use Types [...] on filedocumented in this encounter Care Teams Used Car Lot Porter Relationship Specialty Start Date End Date Presley Santillan MD [address] [place] [address] PCP - General Internal Medicine 02/10/17 documented as of this encounter
--- OUTSIDE RECORDS SUMMARY | 2024-05-16 17:26 | XMS_ITS | Encounter Summary ---
Author Organization [facility] Address [facility] [place] [address] Care Team Providers Care Web Merchant Name Role Phone Presley Santillan MD Primary Care Provider Reason for Visit * Reason Comments Follow Up Surgery S/p re-release right carpal tunnel with median nerve Encounter Details Date Type Department Care Team (Late st Contact Info) Description 02/02/2023 10:20 AM EDT Office Visit [place] [address] Jocelyn Padilla DEVELOPER [facility] [place] [address] Surgery follow-up Social History Tobacco Use Types [...] surgery documented in this encounter Care Teams Web Merchant Relationship Specialty Start Date End Date Presley Santillan MD [address] [place] [address] PCP - General Internal Medicine 02/10/17 documented as of this encounter
--- OUTSIDE RECORDS SUMMARY | 2024-05-16 17:27 | XMS_ITS | Encounter Summary ---
Author Organization [facility] [place] [address] Care Team Providers Care Student Teaching Coordinator Name Role Phone Presley Santillan MD Primary Care Provider [phone] Encounter Details Date Type Department Care Team (Late st Contact Info) Description 03/02/2018 Telephone Hematology Oncology at [address] [address] Carlita Hoskins RN Social History [...] on filedocumented in this encounter Care Teams Student Teaching Coordinator Relationship Specialty Start Date End Date Presley Santillan MD [address] [place] [address] PCP - General Internal Medicine 02/10/17 documented as of this encounter
--- OUTSIDE RECORDS SUMMARY | 2024-05-16 17:27 | XMS_ITS | Encounter Summary ---
Author Organization [facility] [place] [address] Care Team Providers Care Clinic Office Assistant Name Role Phone Presley Santillan MD Primary Care Provider [phone] Reason for Visit * Reason Onset Date Comments Labs Only 06/03/2017 lab tracking Encounter Details Date Type Department Care Team (Late st Contact Info) Description 06/03/2017 Telephone Hematology/Oncology at [address] [address] Anamaria Lamas RN Labs Only [...] 2:19 PM EST LAB TRACKING Daniela Gardner [id number] Diagnosis: ITP Labs ordered: every 4 weeks CBC (and PRN if pt wants to see one , she will let us know she went to lab she realizes we may not get back to her for a few days with results) Medications: Dex 40mg x 4 days every 3 weeks completed 04/2017 Rituxan infusions x4 (03/11/17-04/01/17) Assessment saw Angeli Acosta EDI DEVELOPER in clinic today Plan pt will do labs in 4 weeks Date WBC HGB/HCT PLT ANC PLAN LABS 06/01/17 7.27 12.2/36.4 209k 3.86 Stopped dex [facility] 06/30/16 05/25/17 8.15 12.2/35.5 153k 5.21 Dex 40 mg 05/25-05/28 [facility] 06/1505/04/17 7.77 12.4/36.3 153k 4.74 Dex 40 mg 05/04-05/07 [facility] 05/2504/20/17 10.15 12.6/35.2 175k 5.67 Completed 4 days of dex 04/16/17 [facility] 05/04/17 04/10/17 10.44 12.3/36.1 112k 7.26 4ht cycle dex start 04/13. Prior to vs with Dr Whitfield on 04/2203/30/17 9.57 12.7/36.1 206k 5.04 4th Rituxan due03/31 Labs again on 04/0703/24/17 7.87 12/34.9 120k 5.13 3rd rituxan due 03/25 Labs again 03/31/17 03/16/17 11.79 12.1/34.8 129k 8.18 2nd Rituxan given 03/18 [facility] 03/2403/06/17 11.59 11.8/35.4 166k 9.67 1st rituxan given 03/11 [facility] 03/16 documented in this encounter Plan of Treatment Not on file documented as of this encounter Visit Diagnoses Not on filedocumented in this encounter Care Teams Clinic Office Assistant Relationship Specialty Start Date End Date Presley Santillan MD [address] [place] [address] PCP - General Internal Medicine 02/10/17 documented as of this encounter
--- OUTSIDE RECORDS SUMMARY | 2024-05-16 17:27 | XMS_ITS | Encounter Summary ---
Author Organization [facility] [place] [address] Care Team Providers Care Refinery Operator Helper Cracking Unit Name Role Phone Presley Santillan MD Primary Care Provider Reason for Visit * Reason Comments Chemotherapy Rituxan #4 of 4 plan rodolfo * Treatment/Therapy Plan Authorization (Routine) - Closed Specialty Diagnoses / Procedures Referred By Contac t Referred To Contact Hematology and Oncology Diagnoses Acute ITP Immune thrombocytopenic purpura Procedures TC RITUXIMAB, 100MG, INJECTION (RITUXAN) Yovani Fajardo MD [facility] DR HEMATOLOGY [place] [address] [facility] [address] [place] [address] Referral ID Status Reason Start Date Expiration Date Visits Re quested Visits Authorized [id number] Closed 03/06/2017 03/06/2018 52 52 Encounter Details Date Type Department Care Team (Late st Contact Info) Description 04/01/2017 10:00 AM EDT Infusion Hematology Oncology at [address] [phone] Acute ITP Social History Tobacco Use Types [...] mg documented in this encounter Care Teams Refinery Operator Helper Cracking Unit Relationship Specialty Start Date End Date Presley Santillan MD [address] [place] [address] PCP - General Internal Medicine 02/10/17 documented as of this encounter
--- OUTSIDE RECORDS SUMMARY | 2024-05-16 17:27 | XMS_ITS | Encounter Summary ---
Author Organization [facility] Address [facility] [place] [address] Care Team Providers Care Automobile Drivers Name Role Phone Presley Santillan MD Primary Care Provider [phone] Encounter Details Date Type Department Care Team (Late st Contact Info) Description 07/18/2019 1:45 PM EST - 07/18/2019 2:30 PM EST [place] [phone] Marino Smith MD [facility] [place] [address] COLONOSCOPY FLEXIBLE, WITH BX (WRVU 3.56) Social [...] sent through Care Everywhere. * Colonoscopy: Post-op (Faroese) documented in this encounter Medications at Time [...] Other (See Comments) MAKES ME RESTLESS ??? Snowflake Other (See Comments) Abdominal pain ??? Cis [...] complication. Informed Consent signed by patient (or motor vehicle field representative). documented in this encounter Plan of Treatment Not on file documented as of this encounter Procedures Procedure Name Priority Date/Time Associated Diagnosis Comments SPECIMEN TO PATHOLOGY Routine 07/18/2019 2:44 PM EST SURGICAL PATHOLOGY REPORT Routine 07/18/2019 2:41 PM EST COLONOSCOPY Routine 07/18/2019 2:20 PM EST Colonoscopy, Biopsy ([id number]) 07/18/2019 2:19 PM EST colo documented in this encounter Results * Specimen to Pathology (07/18/2019 2:44 PM EST) AP Specimen 07/18/2019 2:44 PM EST 07/18/2019 2:44 PM EST Narrative [facility] - 07/18/2019 2:44 PM EST Specimen requisition ordered. ??Separate Pathology report to follow Marino Smith MD PATHOLOGY/CYTOLOG Y ORDERABLES [facility] [place] [address] * Surgical Pathology Report (07/18/2019 2:41 PM EST) Final Diagnosis [id number] ? Location: 4T; EA10; A The signing pathologist has (i) examined the relevant preparation(s) for the specimen(s) and (ii) rendered or confirmed the diagnosis(es). . ?Surgical Pathology DIAGNOSIS Random colon, biopsy: Colonic mucosa within normal limits. CR-PX Electronically signed by: ??Tati Bunch MD Verified: ??07/22/2019 ?Pathologist Performed at: ??-[facility] Dept. of [place]ology, [place], [place] CLINICAL INFORMATION Specimen Submitted: A - Random colon biopsies non-targeted Clinical History and Diagnosis: Chronic diarrhea SPECIMEN PROCESSING A - Labeled/Fixativ e: Random colon biopsies non-targeted, formalin. Quantity/Size: Six, averaging 0.3 cm. Tissue Description: Soft, pink tissues. Sections/Proces sing: Submitted en toto ??in 2 cassettes labeled A1-A2. ??ejr 07/22/2019 9:06 AM EST [facility] GI Biopsy 07/18/2019 2:41 PM EST 07/18/2019 2:41 PM EST Marino Smith MD PATHOLOGY/CYTOLOG Y ORDERABLES [facility] [place] [address] * COLONOSCOPY (07/18/2019 2:20 PM EST) COLONOSCOPY [facility] Endoscopy ___ Procedure Date: 07/18/2019 2:20 PM ? Patient Name: Daniela Gardner ? Date of : 1990 ? Age: 28 ? Order #: [id number] ? Instrument Name: [id number] ? ___ Procedure: ? Colonoscopy Indications: ? [...] preparation was ? evaluated using the BBPS ([place] ? Bowel Preparation Scale) with scores ? [...] PROVATION 07/18/2019 2:20 PM EST Jessica Mohamud CLINICAL RESEARCH SCIENTIST GENERAL SURGICAL ORDERABLES PROVATION documented in this [...] RN) documented in this encounter Care Teams Automobile Drivers Relationship Specialty Start Date End Date Presley Santillan MD [address] [place] [address] PCP - General Internal Medicine 02/10/17 documented as of this encounter
--- OUTSIDE RECORDS SUMMARY | 2024-05-16 17:27 | XMS_ITS | Encounter Summary ---
Author Organization [facility] [place] [place] [address] Care Team Providers Care Teacher Citizenship Name Role Phone Presley Santillan MD Primary Care Provider [phone] Reason for Visit * Reason Onset Date Comments Labs Only 05/04/2017 Patient calling to have lab results Encounter Details Date Type Department Care Team (Late st Contact Info) Description 05/04/2017 Telephone Hematology/Oncology at [address] [phone] Geovanna Quintero RN Labs Only [...] PM EST Patient had labs today at [facility] and was asking for results. Normal lab values reported to patient. Patient satisfied with exchange. documented in this encounter Plan of Treatment Not on file documented as of this encounter Visit Diagnoses Not on filedocumented in this encounter Care Teams Teacher Citizenship Relationship Specialty Start Date End Date Presley Santillan MD [address] [place] [address] PCP - General Internal Medicine 02/10/17 documented as of this encounter
--- OUTSIDE RECORDS SUMMARY | 2024-05-16 17:27 | XMS_ITS | Encounter Summary ---
Author Organization [facility] [place] [address] Care Team Providers Care Geography Head Name Role Phone Presley Santillan MD Primary Care Provider Reason for Visit * Reason Onset Date Comments Labs Only 05/25/2017 lab tracking Encounter Details Date Type Department Care Team (Late st Contact Info) Description 05/25/2017 Telephone Hematology/Oncology at [address] [phone] Anamaria Lamas RN Labs Only [...] PM EST LAB TRACKING Daniela Sharon Gardner [id number] Diagnosis: ITP Labs ordered: every 3 weeks [...] 12.1/34.8 129k 8.18 2nd Rituxan given 03/18 [facility] 03/2403/06/17 11.59 11.8/35.4 166k 9.67 1st rituxan given 03/11 [facility] 03/16 documented in this encounter Plan of Treatment Not on file documented as of this encounter Visit Diagnoses Not on filedocumented in this encounter Care Teams Geography Head Relationship Specialty Start Date End Date Presley Santillan MD [address] [place] [address] PCP - General Internal Medicine 02/10/17 documented as of this encounter
--- OUTSIDE RECORDS SUMMARY | 2024-05-16 17:27 | XMS_ITS | Encounter Summary ---
Author Organization [facility] [place] [address] Care Team Providers Care Railroad Police Name Role Phone Presley Santillan MD Primary [...] Expiration Date Visits Re quested Visits Authorized [id number] 1 1 Encounter Details Date Type Department Care Team (Late st Contact Info) Description 06/25/2017 11:32 AM EST Anesthesia [place] [address] James Montiel DO [facility] [place] [address] Anesthesia Record Procedure Summary Procedure Name Responsible [...] without issue. VSS. Full report given to DELIVERY DRIVER/CUSTOMER SERVICE. Meds Name Total IV Lidocaine 50 mg Propofol 140 mg Propofol INF 336.6 mg lactated Ringers infusion 900 mL * Agents Name O2 Auxiliary Flowmeter 1 * Blood No blood administrations on file. Lines, Drains, and Airways Type Details Placement Removal (RETIRED) Peripheral IV Line - Single Lumen 04/17/17; 1256; median cubital vein (antecubital fossa), right; nxos-gpt-oojdcn catheter system; 22 gauge, 3/4 in length; tolerated well, appears comfortable; 06/25/17; 1306 04/17/17 1256 by Nitesh Brooke 06/25/17 1306 by Grisel Castanon RN (RETIRED) Peripheral IV Line - Single Lumen 06/25/17; 1030; metacarpal vein (top of hand), right; hgov-pgo-lbhojd catheter system; 20 gauge, 1 in length; [...] Montiel DO - 06/25/2017 2:53 PM EST [facility] Department of Anesthesiology Post-procedure Note Patient: Daniela Gardner Procedure Summary Date Anesthesia Start Anesthesia Stop Room / Location 06/25/17 1132 1225 [facility] 4 / [facility] Procedure Diagnosis Surgeon Responsible Provider COLONOSCOPY, DIAGNOSTIC (N/A Trunk); EGD, UPPER GI ENDOSCOPY (N/A Trunk) Alternating constipation and diarrhea; Abdominal pain, unspecified location (h/o colitis seen on CT scan at [facility]SH, c/o abdominal pain, alternating diarreha/constipation. Needs to r/o IBD Doctor ; (consult)) Marino Smith MD Joshi, Wand[place], DO All Anesthesia Providers: Anesthesiologist: James Montiel DO WORKING MANAGER: Zaira Velasquez CRNA Most Recent Vitals: 06/25/17 1250 BP: Pulse: Resp: SpO2: 100% Pain Patient Location: PACU/[facility] Level of Consciousness: Awake and Alert Pain [...] Not on file Allergies Allergen Reactions ??? Henry Other (See Comments) Abdominal pain ??? Cis [...] risks discussed with patient. Plan discussed with WORKING MANAGER and attending. PAT Staff Note documented in [...] mL/hr documented in this encounter Care Teams Railroad Police Relationship Specialty Start Date End Date Presley Santillan MD [address] [place] [address] PCP - General Internal Medicine 02/10/17 documented as of this encounter
--- OUTSIDE RECORDS SUMMARY | 2024-05-16 17:27 | XMS_ITS | Encounter Summary ---
Author Organization [facility] [place] [address] Care Team Providers Care Dispatcher Service Name Role Phone Presley Santillan MD Primary Care Provider Reason for Visit * Reason Comments Chemotherapy Rituxan #3 of 4 * Treatment/Therapy Plan Authorization (Routine) - Closed Specialty Diagnoses / Procedures Referred By Contac t Referred To Contact Hematology and Oncology Diagnoses Acute ITP Immune thrombocytopenic purpura Procedures TC RITUXIMAB, 100MG, INJECTION (RITUXAN) Yovnai Fajardo MD [facility] DR [place]ATOLOGY [place] [address] [facility] [address] [place] [address] Referral ID Status Reason Start Date Expiration Date Visits Re quested Visits Authorized [id number] Closed 03/06/2017 03/06/2018 52 52 Encounter Details Date Type Department Care Team (Late st Contact Info) Description 03/25/2017 10:00 AM EDT Infusion Hematology Oncology at [address] [phone] Acute ITP Social History Tobacco Use Types [...] mg documented in this encounter Care Teams Dispatcher Service Relationship Specialty Start Date End Date Presley Santillan MD [address] [place] [address] PCP - General Internal Medicine 02/10/17 documented as of this encounter
--- OUTSIDE RECORDS SUMMARY | 2024-05-16 17:27 | XMS_ITS | Encounter Summary ---
Author Organization [facility] [place] [address] Care Team Providers Care Hand Leather Trimmer Name Role Phone Presley Santillan MD Primary Care Provider Reason for Visit * Reason Onset Date Comments Labs Only 03/24/2017 Lab Tracking Encounter Details Date Type Department Care Team (Late st Contact Info) Description 03/24/2017 Telephone Hematology Oncology at [address] [phone] Carlita Hoskins RN Labs Only [...] 1:23 PM EDT LAB TRACKING Daniela Gardner [id number] Diagnosis: ITP Labs ordered: weekly CBC Medications: [...] on filedocumented in this encounter Care Teams Hand Leather Trimmer Relationship Specialty Start Date End Date Presley Santillan MD [address] [place] [address] PCP - General Internal Medicine 02/10/17 documented as of this encounter
--- OUTSIDE RECORDS SUMMARY | 2024-05-16 17:27 | XMS_ITS | Encounter Summary ---
Author Organization [facility] [place] [address] Care Team Providers Care Heading Pinner Name Role Phone Presley Santillan MD Primary Care Provider [phone] Reason for Visit * Reason Onset Date Comments Labs Only 08/31/2017 lab tracking Encounter Details Date Type Department Care Team (Late st Contact Info) Description 08/31/2017 Telephone Hematology/Oncology at [address] [phone] Anamaria Lamas RN Labs Only [...] 9:57 AM EST LAB TRACKING Yaneth Gardner [id number] Diagnosis: ITP Labs ordered: every 4 weeks [...] issues. Plan:Labs normal reviewed with Angeli Dao WET MACHINE OPERATOR, labs again in 4 weeks. Results [...] 5.45 Had bruising on knees and elbows [facility] 07/28/18 06/01/17 7.27 12.2/36.4 209k 3.86 Stopped dex [facility] 06/30/16 05/25/17 8.15 12.2/35.5 153k 5.21 Dex 40 mg 05/25-05/28 [facility] 06/1505/04/17 7.77 12.4/36.3 153k 4.74 Dex 40 mg 05/04-05/07 [facility] 05/2504/20/17 10.15 12.6/35.2 175k 5.67 Completed 4 days of dex 04/16/17 [facility] 05/04/17 04/10/17 10.44 12.3/36.1 112k 7.26 4ht cycle dex start 04/13. Prior to vs with Dr Whitfield on 04/2203/30/17 9.57 12.7/36.1 206k 5.04 4th Rituxan due03/31 Labs again on 04/0703/24/17 7.87 12/34.9 120k 5.13 3rd rituxan due 03/25 Labs again 03/31/17 03/16/17 11.79 12.1/34.8 129k 8.18 2nd Rituxan given 03/18 [facility] 03/2403/06/17 11.59 11.8/35.4 166k 9.67 1st rituxan given 03/11 [facility] 03/16 documented in this encounter [...] on filedocumented in this encounter Care Teams Heading Pinner Relationship Specialty Start Date End Date Presley Santillan MD [address] [place] [address] PCP - General Internal Medicine 02/10/17 documented as of this encounter
--- OUTSIDE RECORDS SUMMARY | 2024-05-16 17:27 | XMS_ITS | Encounter Summary ---
Author Organization [facility] [place] [place] [address] Care Team Providers Care Registered Safety Engineer Name Role Phone Presley Santillan MD Primary Care Provider [phone] Reason for Visit * Reason Onset Date Comments Labs Only 09/29/2018 Encounter Details Date Type Department Care Team (Late st Contact Info) Description 09/29/2018 Telephone Hematology/Oncology at [address] [phone] Anamaria Lamas RN Labs Only [...] on filedocumented in this encounter Care Teams Registered Safety Engineer Relationship Specialty Start Date End Date Presley Santillan MD [address] [place] [address] PCP - General Internal Medicine 02/10/17 documented as of this encounter
--- OUTSIDE RECORDS SUMMARY | 2024-05-16 17:27 | XMS_ITS | Encounter Summary ---
Author Organization [facility] [place] [address] Care Team Providers Care Tnt Powder Worker Name Role Phone Presley Santillan MD Primary Care Provider Reason for Visit * Reason Onset Date Comments Labs Only 03/18/2017 Lab Tracking Encounter Details Date Type Department Care Team (Late st Contact Info) Description 03/18/2017 Telephone Hematology/Oncology at [address] [phone] Nolberto Monreal RN Labs Only [...] 8:45 AM EDT LAB TRACKING Daniela Gardner [id number] Diagnosis: ITP Labs ordered: weekly CBC Medications: [...] on filedocumented in this encounter Care Teams Tnt Powder Worker Relationship Specialty Start Date End Date Presley Santillan MD [address] [place] [address] PCP - General Internal Medicine 02/10/17 documented as of this encounter
--- OUTSIDE RECORDS SUMMARY | 2024-05-16 17:27 | XMS_ITS | Encounter Summary ---
Author Organization [place] [address] Care Team Providers Care Certified Retinal Angiographer Name Role Phone Presley Santillan MD Primary Care Provider [phone] Reason for Visit * Reason Onset Date Comments Follow-up 01/05/2019 Encounter Details Date Type Department Care Team (Late st Contact Info) Description 01/05/2019 Telephone Hematology/Oncology at [address] [phone] Anamaria Lamas RN Follow-up Social [...] on filedocumented in this encounter Care Teams Certified Retinal Angiographer Relationship Specialty Start Date End Date Presley Santillan MD [address] [place] [address] PCP - General Internal Medicine 02/10/17 documented as of this encounter
--- OUTSIDE RECORDS SUMMARY | 2024-05-16 17:27 | XMS_ITS | Encounter Summary ---
Author Organization [facility] [place] [address] Care Team Providers Care Pool Hall Inspector Name Role Phone Presley Santillan MD Primary Care Provider Reason for Visit * Reason Comments Chemotherapy # 2 of 4 * Treatment/Therapy Plan Authorization (Routine) - Closed Specialty Diagnoses / Procedures Referred By Contac t Referred To Contact Hematology and Oncology Diagnoses Acute ITP Immune thrombocytopenic purpura Procedures TC RITUXIMAB, 100MG, INJECTION (RITUXAN) Yovani Fajardo MD [facility] [address] [place] [address] [facility] [address] [place] [address] Referral ID Status Reason Start Date Expiration Date Visits Re quested Visits Authorized [id number] Closed 03/06/2017 03/06/2018 52 52 Encounter Details Date Type Department Care Team (Late st Contact Info) Description 03/18/2017 8:30 AM EDT Infusion Hematology Oncology at [address] [phone] Acute ITP Social History Tobacco Use Types [...] mg documented in this encounter Care Teams Pool Hall Inspector Relationship Specialty Start Date End Date Presley Santillan MD [address] [place] [address] PCP - General Internal Medicine 02/10/17 documented as of this encounter
--- OUTSIDE RECORDS SUMMARY | 2024-05-16 17:27 | XMS_ITS | Encounter Summary ---
Author Organization [facility] [place] [address] Care Team Providers Care Fagoting Machine Operator Name Role Phone Presley Santillan MD Primary Care Provider Reason for Visit * Reason Onset Date Comments Labs Only 06/17/2018 lab tracking Encounter Details Date Type Department Care Team (Late st Contact Info) Description 06/17/2018 Telephone Hematology/Oncology at [address] [phone] Anamaria Lamas RN Labs Only [...] 2:34 PM EST LAB TRACKING Yaneth Gardner [id number] Diagnosis: ITP Labs ordered: every 3 months [...] on filedocumented in this encounter Care Teams Fagoting Machine Operator Relationship Specialty Start Date End Date Presley Santillan MD [address] [place] [address] PCP - General Internal Medicine 02/10/17 documented as of this encounter
--- OUTSIDE RECORDS SUMMARY | 2024-05-16 17:27 | XMS_ITS | Encounter Summary ---
Author Organization [facility] [place] [address] Care Team Providers Care Physician Relations Specialist Name Role Phone Presley Santillan MD Primary Care Provider Reason for Visit * Reason Onset Date Comments Labs Only 09/23/2017 lab tracking Encounter Details Date Type Department Care Team (Late st Contact Info) Description 09/23/2017 Telephone Hematology/Oncology at [address] [phone] Anamaria Lamas RN Labs [...] 4:28 PM EDT LAB TRACKING Yaneth Gardner [id number] Diagnosis: ITP Labs ordered: every 4 weeks [...] on filedocumented in this encounter Care Teams Physician Relations Specialist Relationship Specialty Start Date End Date Presley Santillan MD [address] [place] [address] PCP - General Internal Medicine 02/10/17 documented as of this encounter
--- OUTSIDE RECORDS SUMMARY | 2024-05-16 17:27 | XMS_ITS | Encounter Summary ---
Author Organization [facility] [place] [address] Care Team Providers Care Director Of Acquisitions Name Role Phone Presley Santillan MD Primary Care Provider [phone] Reason for Visit * Reason Onset Date Comments Labs Only 06/01/2017 Encounter Details Date Type Department Care Team (Late st Contact Info) Description 06/01/2017 Telephone Hematology/Oncology at [address] [phone] Anamaria Lamas RN Labs Only [...] filedocumented in this encounter Care Teams Director Of Acquisitions Relationship Specialty Start Date End Date Presley Santillan MD [address] [place] [address] PCP - General Internal Medicine 02/10/17 documented as of this encounter
--- OUTSIDE RECORDS SUMMARY | 2024-05-16 17:27 | XMS_ITS | Encounter Summary ---
Author Organization [facility] [place] [address] Care Team Providers Care Claim Administrator Name Role Phone Presley Santillan MD Primary Care Provider [phone] Reason for Visit * Reason Onset Date Comments Labs Only 09/21/2018 Reminder to get labs Encounter Details Date Type Department Care Team (Late st Contact Info) Description 09/21/2018 Telephone Hematology/Oncology at [address] [phone] Geovanna Quintero RN Labs Only [...] on filedocumented in this encounter Care Teams Claim Administrator Relationship Specialty Start Date End Date Presley Santillan MD [address] [place] [address] PCP - General Internal Medicine 02/10/17 documented as of this encounter
--- OUTSIDE RECORDS SUMMARY | 2024-05-16 17:27 | XMS_ITS | Encounter Summary ---
Author Organization [facility] [place] [address] Care Team Providers Care Clearing Tub Worker Name Role Phone Presley Santillan MD Primary Care Provider [phone] Reason for Visit * Reason Onset Date Comments Labs Only 10/22/2017 lab tracking Encounter Details Date Type Department Care Team (Late st Contact Info) Description 10/22/2017 Telephone Hematology/Oncology at [address] [phone] Anamaria Lamas RN Labs Only [...] 9:09 AM EDT LAB TRACKING Yaneth Gardner [id number] Diagnosis: ITP Labs ordered: every 4 weeks [...] Had bruising on knees and elbows [facility] 07/28/18 06/01/17 7.27 12.2/36.4 209k 3.86 Stopped dex [facility] 06/30/16 05/25/17 8.15 12.2/35.5 153k 5.21 Dex 40 mg 05/25-05/28 [facility] 06/1505/04/17 7.77 12.4/36.3 153k 4.74 Dex 40 mg 05/04-05/07 [facility] 05/2504/20/17 10.15 12.6/35.2 175k 5.67 Completed 4 days of dex 04/16/17 [facility] 05/04/17 04/10/17 10.44 12.3/36.1 112k 7.26 4ht cycle dex start 04/13. Prior to vs with Dr Whitfield on 04/2203/30/17 9.57 12.7/36.1 206k 5.04 4th Rituxan due03/31 Labs again on 04/0703/24/17 7.87 12/34.9 120k 5.13 3rd rituxan due 03/25 Labs again 03/31/17 03/16/17 11.79 12.1/34.8 129k 8.18 2nd Rituxan given 03/18 [facility] 03/2403/06/17 11.59 11.8/35.4 166k 9.67 1st rituxan given 03/11 [facility] 03/16 documented in this encounter [...] on filedocumented in this encounter Care Teams Clearing Tub Worker Relationship Specialty Start Date End Date Presley Santillan MD [address] [place] [address] PCP - General Internal Medicine 02/10/17 documented as of this encounter
--- OUTSIDE RECORDS SUMMARY | 2024-05-16 17:27 | XMS_ITS | Encounter Summary ---
Author Organization [facility] Address [facility] [place] [address] Care Team Providers Care Sequins Slinger Name Role Phone Presley Santillan MD Primary Care Provider Encounter Details Date Type Department Care Team (Late st Contact Info) Description 06/25/2017 [place] [phone] Marino Smith MD [facility] [place] [address] Social History Tobacco Use Types Packs/Day Years [...] 3:25 PM EST Patient calls endoscopy s/p [place]/EGD for chronic abdominal pain and diarrhea She [...] we will await biopsies. Marino Smith MD [facility] Gastroenterology documented in this encounter Plan of Treatment Not on file documented as of this encounter Visit Diagnoses Not on filedocumented in this encounter Care Teams Sequins Slinger Relationship Specialty Start Date End Date Presley Santillan MD [address] [place] [address] PCP - General Internal Medicine 02/10/17 documented as of this encounter
--- OUTSIDE RECORDS SUMMARY | 2024-05-16 17:27 | XMS_ITS | Encounter Summary ---
Author Organization [facility] [place] [address] Care Team Providers Care Leader Assembler Name Role Phone Presley Santillan MD Primary Care Provider [phone] Reason for Visit * Reason Onset Date Comments Follow-up 09/15/2018 Encounter Details Date Type Department Care Team (Late st Contact Info) Description 09/15/2018 Telephone Hematology/Oncology at [address] [phone] Nolberto Monreal RN Follow-up Social [...] on filedocumented in this encounter Care Teams Leader Assembler Relationship Specialty Start Date End Date Presley Santillan MD [address] [place] [address] PCP - General Internal Medicine 02/10/17 documented as of this encounter
--- OUTSIDE RECORDS SUMMARY | 2024-05-16 17:27 | XMS_ITS | Encounter Summary ---
Author Organization [facility] [place] [address] Care Team Providers Care Strainer Tender Name Role Phone Presley Santillan MD Primary Care Provider [phone] Reason for Visit * Reason Onset Date Comments Illness 03/30/2017 I don't feel we ll Encounter Details Date Type Department Care Team (Late st Contact Info) Description 03/30/2017 Telephone Hematology/Oncology at [address] [address] Geovanna Quintero, RN Illness (I [...] on filedocumented in this encounter Care Teams Strainer Tender Relationship Specialty Start Date End Date Presley Santillan MD [address] [place] [address] PCP - General Internal Medicine 02/10/17 documented as of this encounter
--- OUTSIDE RECORDS SUMMARY | 2024-05-16 17:27 | XMS_ITS | Encounter Summary ---
Author Organization [facility] [place] [address] Care Team Providers Care Assistant Kitchen Manager Name Role Phone Presley Santillan MD Primary Care Provider Reason for Visit * Reason Onset Date Comments Labs Only 12/02/2017 Encounter Details Date Type Department Care Team (Late st Contact Info) Description 12/02/2017 Telephone Hematology [place] [id number] Kandis Hill I, RN Labs Only Social [...] AM EDT LAB TRACKING Yaneth Herrera Jj [id number] Diagnosis: ITP Labs ordered: every 8 weeks [...] 06/01/17 7.27 12.2/36.4 209k 3.86 Stopped dex [facility] 06/30/16 05/25/17 8.15 12.2/35.5 153k 5.21 Dex 40 mg 05/25-05/28 [facility] 06/1505/04/17 7.77 12.4/36.3 153k 4.74 Dex 40 mg 05/04-05/07 [facility] 05/2504/20/17 10.15 12.6/35.2 175k 5.67 Completed 4 days of dex 04/16/17 [facility] 05/04/17 04/10/17 10.44 12.3/36.1 112k 7.26 [...] filedocumented in this encounter Care Teams Assistant Kitchen Manager Relationship Specialty Start Date End Date Presley Santillan MD [address] [place] [address] PCP - General Internal Medicine 02/10/17 documented as of this encounter
--- OUTSIDE RECORDS SUMMARY | 2024-05-16 17:27 | XMS_ITS | Encounter Summary ---
Author Organization [facility] Address [facility] [place] [address] Care Team Providers Care Authors Motivational Name Role Phone Presley Santillan MD Primary Care Provider [phone] Encounter Details Date Type Department Care Team (Late st Contact Info) Description 08/04/2017 Orders Only Hematology [place] [address] Yovani Fajardo MD [facility] [place] [address] Social History Tobacco Use Types Packs/Day Years [...] on filedocumented in this encounter Care Teams Authors Motivational Relationship Specialty Start Date End Date Presley Santillan MD [address] [place] [address] PCP - General Internal Medicine 02/10/17 documented as of this encounter
--- OUTSIDE RECORDS SUMMARY | 2024-05-16 17:27 | XMS_ITS | Encounter Summary ---
Author Organization [facility] Address [facility] [place] [address] Care Team Providers Care Levi Maker Name Role Phone Presley Santillan MD Primary Care Provider [phone] Reason for Visit * Auth/Cert Specialty Diagnoses [...] Expiration Date Visits Re quested Visits Authorized [id number] 1 1 Encounter Details Date Type Department Care Team (Latest Contact Info) Description 06/25/2017 9:45 AM EST - 06/25/2017 1:34 PM EST Hospital En[place] [address] Sara Siddiqui MD [facility] [place] [address] Discharge Disposition: Home Social History Tobacco Use [...] to be checked. Thursday-Thursday Same Day Endo [phone] 7a-8p Otherwise contact [phone] and ask to speak to the six sigma black belt engineer chronometer assembler Follow up care is a calvillo part [...] Other (See Comments) MAKES ME RESTLESS ??? [place] Other (See Comments) Abdominal pain ??? Cis [...] PM EST 06/25/2017 1:20 PM EST Narrative [facility] - 06/25/2017 1:20 PM EST Specimen requisition ordered. ??Separate Pathology report to follow Resulting Agency Comment Spec In Lab Marino Smith MD PATHOLOGY/CYTOLOG Y ORDERABLES Performing Organization Address City/[facility]/ZIP Co de Phone Number [facility] [place] [address] * Specimen to Pathology (surgical or derm) (06/25/2017 12:18 PM EST) AP Specimen 06/25/2017 12:1 8 PM EST 06/25/2017 1:20 PM EST Narrative [facility] - 06/25/2017 1:20 PM EST Specimen requisition ordered. ??Separate Pathology report to follow Resulting Agency Comment Spec In Lab Marino Smith MD PATHOLOGY/CYTOLOG Y ORDERABLES Performing Organization Address City/[facility]/[place] [address] * Specimen to Pathology (surgical or derm) (06/25/2017 12:18 PM EST) AP Specimen 06/25/2017 12:1 8 PM EST 06/25/2017 1:20 PM EST Narrative [facility] - 06/25/2017 1:20 PM EST Specimen requisition ordered. ??Separate Pathology report to follow Resulting Agency Comment Spec In Lab Marino Smith MD PATHOLOGY/CYTOLOG Y ORDERABLES Performing Organization Address [facility] [place] [address] * Specimen to Pathology (surgical or derm) (06/25/2017 12:18 PM EST) AP Specimen 06/25/2017 12:1 8 PM EST 06/25/2017 1:20 PM EST Narrative [facility] - 06/25/2017 1:20 PM EST Specimen requisition ordered. ??Separate Pathology report to follow Resulting Agency Comment Spec In Lab Marino Smith MD PATHOLOGY/CYTOLOG Y ORDERABLES Performing Organization Address [facility] [place] [address] * Specimen to Pathology (surgical or derm) (06/25/2017 12:18 PM EST) AP Specimen 06/25/2017 12:1 8 PM EST 06/25/2017 1:20 PM EST Narrative [facility] - 06/25/2017 1:20 PM EST Specimen requisition ordered. ??Separate Pathology report to follow Resulting Agency Comment Spec In Lab Marino Smith MD PATHOLOGY/CYTOLOG Y ORDERABLES Performing Organization Address [facility] [place] [address] * Surgical Pathology Report (06/25/2017 12:17 PM EST) Final Diagnosis [id number] ? Location: 4T; EA09; A The signing [...] Oshea MD Verified: ??06/26/2017 ?Pathologist Performed at: ??-[facility] Dept. of Pathology, [place], [place] CLINICAL INFORMATION Specimen Submitted: A - [...] sing: (T1) ??ejr 06/26/2017 4:03 PM EST [facility] GI Biopsy 06/25/2017 12:1 7 PM EST 06/25/2017 12:17 PM EST GI Biopsy 06/25/2017 12:1 7 PM EST 06/25/2017 12:17 PM EST GI Biopsy 06/25/2017 12:1 7 PM EST 06/25/2017 12:17 PM EST GI Biopsy 06/25/2017 12:1 7 PM EST 06/25/2017 12:17 PM EST GI Biopsy 06/25/2017 12:1 7 PM EST 06/25/2017 12:17 PM EST Marino Smith MD PATHOLOGY/CYTOLOG Y ORDERABLES [facility] [place] [address] * UPPER GI ENDOSCOPY (06/25/2017 11:27 AM EST) UPPER GI ENDOSCOPY [facility] Endoscopy Procedure Date: 06/25/2017 11:27 AM ? Patient Name: Daniela Gardner ? N: [id number] ? Date of : 1990 ? Age: 26 ? Order #: [id number] ? Instrument Name: [id number] ? Procedure: ? Upper GI endoscopy Indications: [...] * COLONOSCOPY (06/25/2017 11:25 AM EST) COLONOSCOPY [facility] Endoscopy Procedure Date: 06/25/2017 11:25 AM ? Patient Name: Daniela Gardner ? N: [id number] ? Date of : 1990 ? Age: 26 ? Order #: [id number] ? Instrument Name: [id number] ? Procedure: ? Colonoscopy Indications: ? Upper [...] preparation was evaluated using ? the BBPS (Custer Bowel Preparation ? Scale) with scores of: [...] CRNA) documented in this encounter Care Teams Levi Maker Relationship Specialty Start Date End Date Presley Santillan MD [address] [place] [address] PCP - General Internal Medicine 02/10/17 documented as of this encounter
--- OUTSIDE RECORDS SUMMARY | 2024-05-16 17:27 | XMS_ITS | Encounter Summary ---
Author Organization [facility] [place] [address] Care Team Providers Care Associate Automation Engineer Name Role Phone Presley Santillan MD Primary Care Provider [phone] Reason for Visit * Reason Onset Date Comments Labs Only 05/04/2017 lab tracking Encounter Details Date Type Department Care Team (Late st Contact Info) Description 05/04/2017 Telephone Hematology/Oncology at [address] [address] Anamaria Lamas RN Labs [...] 11:25 AM EST LAB TRACKING Daniela Gardner [id number] Diagnosis: ITP Labs ordered: every 3 weeks [...] 12.1/34.8 129k 8.18 2nd Rituxan given 03/18 [facility] 03/2403/06/17 11.59 11.8/35.4 166k 9.67 1st rituxan given 03/11 [facility] 03/16 documented in this encounter Plan of Treatment Not on file documented as of this encounter Visit Diagnoses Not on filedocumented in this encounter Care Teams Associate Automation Engineer Relationship Specialty Start Date End Date Presley Santillan MD [address] [place] [address] PCP - General Internal Medicine 02/10/17 documented as of this encounter
--- OUTSIDE RECORDS SUMMARY | 2024-05-16 17:27 | XMS_ITS | Encounter Summary ---
Author Organization [facility] Address [facility] [place] [address] Care Team Providers Care Supervisor Ore Dressing Name Role Phone Presley Santillan MD Primary Care Provider [phone] Reason for Visit * Auth/Cert Specialty Diagnoses [...] Expiration Date Visits Re quested Visits Authorized [id number] 1 1 Encounter Details Date Type Department Care Team (Late st Contact Info) Description 06/25/2017 11:00 AM EST - 06/25/2017 12:00 PM EST Surgery [place] [address] Marino Smith MD [facility] [place] [address] COLONOSCOPY, DIAGNOSTIC (WRVU 3.26) Social History Tobacco [...] to be checked. Thursday-Thursday Same Day Endo [phone] 7a-8p Otherwise contact [phone] and ask to speak to the soil conservation teacher overnight houseperson Follow up care is a calvillo part [...] PM EST 06/25/2017 1:20 PM EST Narrative [facility] - 06/25/2017 1:20 PM EST Specimen requisition ordered. ??Separate Pathology report to follow Resulting Agency Comment Spec In Lab Marino Smith MD PATHOLOGY/CYTOLOG Y ORDERABLES Performing Organization Address City/[facility]/ZIP Co de Phone Number [facility] [place] [address] * Specimen to Pathology (surgical or derm) (06/25/2017 12:18 PM EST) AP Specimen 06/25/2017 12:1 8 PM EST 06/25/2017 1:20 PM EST Narrative [facility] - 06/25/2017 1:20 PM EST Specimen requisition ordered. ??Separate Pathology report to follow Resulting Agency Comment Spec In Lab Marino Smith MD PATHOLOGY/[place] [address] * Specimen to Pathology (surgical or derm) (06/25/2017 12:18 PM EST) AP Specimen 06/25/2017 12:1 8 PM EST 06/25/2017 1:20 PM EST Narrative [facility] - 06/25/2017 1:20 PM EST Specimen requisition ordered. ??Separate Pathology report to follow Resulting Agency Comment Spec In Lab Marino Smith MD PATHOLOGY/CYTOLOG Y ORDERABLES Performing Organization Address [facility] [place] [address] * Specimen to Pathology (surgical or derm) (06/25/2017 12:18 PM EST) AP Specimen 06/25/2017 12:1 8 PM EST 06/25/2017 1:20 PM EST Narrative [facility] - 06/25/2017 1:20 PM EST Specimen requisition ordered. ??Separate Pathology report to follow Resulting Agency Comment Spec In Lab Marino Smith MD PATHOLOGY/CYTOLOG Y ORDERABLES Performing Organization Address [facility] [place] [address] * Specimen to Pathology (surgical or derm) (06/25/2017 12:18 PM EST) AP Specimen 06/25/2017 12:1 8 PM EST 06/25/2017 1:20 PM EST Narrative [facility] - 06/25/2017 1:20 PM EST Specimen requisition ordered. ??Separate Pathology report to follow Resulting Agency Comment Spec In Lab Marino Smith MD PATHOLOGY/CYTOLOG Y ORDERABLES Performing Organization Address [facility] [place] [address] * Surgical Pathology Report (06/25/2017 12:17 PM EST) Final Diagnosis [id number] ? Location: 4T; EA09; A The signing [...] MD Verified: ??06/26/2017 ?Pathologist Performed at: ??-[facility] Dept. of Pathology, [place], [place] CLINICAL INFORMATION Specimen Submitted: A - [...] sing: (T1) ??ejr 06/26/2017 4:03 PM EST [facility] GI Biopsy 06/25/2017 12:1 [...] MD PATHOLOGY/CYTOLOG Y ORDERABLES Performing Organization Address City/State/[facility] Co de Phone Number [facility] [place] [address] * UPPER GI ENDOSCOPY (06/25/2017 11:27 AM EST) UPPER GI ENDOSCOPY [facility] Endoscopy Procedure Date: 06/25/2017 11:27 AM ? Patient Name: Daniela Gardner ? N: [id number] ? Date of : 1990 ? Age: 26 ? Order #: [id number] ? Instrument Name: GIF-[id number] ? Procedure: ? Upper GI endoscopy Indications: [...] * COLONOSCOPY (06/25/2017 11:25 AM EST) COLONOSCOPY [facility] Endoscopy Procedure Date: 06/25/2017 11:25 AM ? Patient Name: Daniela Gardner ? N: [id number] ? Date of : 1990 ? Age: 26 ? Order #: [id number] ? Instrument Name: [id number] ? Procedure: ? Colonoscopy Indications: ? Upper [...] preparation was evaluated using ? the BBPS (Benicia Bowel Preparation ? Scale) with scores of: [...] CRNA) documented in this encounter Care Teams Supervisor Ore Dressing Relationship Specialty Start Date End Date Presley Santillan MD [address] [place] [address] PCP - General Internal Medicine 02/10/17 documented as of this encounter
--- OUTSIDE RECORDS SUMMARY | 2024-05-16 17:27 | XMS_ITS | Encounter Summary ---
Author Organization [facility] [place] [address] Care Team Providers Care Manager General Name Role Phone Presley Santillan MD Primary Care Provider Reason for Visit * Reason Onset Date Comments Labs Only 07/08/2017 Lab Tracking Encounter Details Date Type Department Care Team (Late st Contact Info) Description 07/08/2017 Telephone Hematology Oncology at [address] [address] Carlita Hoskins RN Labs Only [...] 4:00 PM EST LAB TRACKING Daniela Gardner [id number] Diagnosis: ITP Labs ordered: every 4 weeks [...] 5.45 Had bruising on knees and elbows [facility] 07/28/18 06/01/17 7.27 12.2/36.4 209k 3.86 Stopped dex [facility] 06/30/16 05/25/17 8.15 12.2/35.5 153k 5.21 Dex 40 mg 05/25-05/28 [facility] 06/1505/04/17 7.77 12.4/36.3 153k 4.74 Dex 40 mg 05/04-05/07 [facility] 05/2504/20/17 10.15 12.6/35.2 175k 5.67 Completed 4 days of dex 04/16/17 [facility] 05/04/17 04/10/17 10.44 12.3/36.1 112k 7.26 4ht cycle dex start 04/13. Prior to vs with Dr Whitfield on 04/2203/30/17 9.57 12.7/36.1 206k 5.04 4th Rituxan due03/31 Labs again on 04/0703/24/17 7.87 12/34.9 120k 5.13 3rd rituxan due 03/25 Labs again 03/31/17 03/16/17 11.79 12.1/34.8 129k 8.18 2nd Rituxan given 03/18 [facility] 03/2403/06/17 11.59 11.8/35.4 166k 9.67 1st rituxan given 03/11 [facility] 03/16 documented in this encounter Plan of Treatment Not on file documented as of this encounter Visit Diagnoses Not on filedocumented in this encounter Care Teams Manager General Relationship Specialty Start Date End Date Presley Santillan MD [address] [place] [address] PCP - General Internal Medicine 02/10/17 documented as of this encounter
--- OUTSIDE RECORDS SUMMARY | 2024-05-16 17:27 | XMS_ITS | Encounter Summary ---
Author Organization [facility] Address [facility] [place] [address] Care Team Providers Care Offshore Diver Name Role Phone Presley Santillan MD Primary Care Provider Encounter Details Date Type Department Care Team (Late st Contact Info) Description 03/18/2017 8:00 AM EDT Office Visit Hematology/Oncolog y at [address] [address] Mercedez Whitfield MD [facility] DR HEMAT[place] [address] Angeli Dao, KOTA [facility] DR HEMATOLOG[place] [address] Acute ITP; Idiopathic thrombocytopenic purpura Social History [...] this encounter Progress Notes * Angeli Dao, TAP OUT OPERATOR - 03/18/2017 8:00 AM EDT Subjective: Patient [...] purpura documented in this encounter Care Teams Offshore Diver Relationship Specialty Start Date End Date Presley Santillan MD [address] [place] [address] PCP - General Internal Medicine 02/10/17 documented as of this encounter
--- OUTSIDE RECORDS SUMMARY | 2024-05-16 17:27 | XMS_ITS | Encounter Summary ---
Author Organization [facility] [place] [address] Care Team Providers Care Mds Rn Name Role Phone Presley Santillan MD Primary Care Provider Encounter Details Date Type Department Care Team (Late st Contact Info) Description 12/02/2017 External Results Hematology [place] [id number] Mercedez Whitfield MD [facility] [address] [place] [address] Social History Tobacco Use Types Packs/Day Years [...] on filedocumented in this encounter Care Teams Mds Rn Relationship Specialty Start Date End Date Presley Santillan MD [address] [place] [address] PCP - General Internal Medicine 02/10/17 documented as of this encounter
--- OUTSIDE RECORDS SUMMARY | 2024-05-16 17:27 | XMS_ITS | Encounter Summary ---
Author Organization [facility] [place] [address] Care Team Providers Care Livestock Judging Coach Name Role Phone Presley Santillan MD Primary Care Provider Reason for Visit * Reason Onset Date Comments Labs Only 07/31/2017 Lab Tracking Encounter Details Date Type Department Care Team (Late st Contact Info) Description 07/31/2017 Telephone Hematology Oncology at [address] [address] Carlita Hoskins RN Labs Only [...] 4:45 PM EST LAB TRACKING Daniela Gardner [id number] Diagnosis: ITP Labs ordered: every 4 weeks [...] 5.45 Had bruising on knees and elbows [facility] 07/28/18 06/01/17 7.27 12.2/36.4 209k 3.86 Stopped dex [facility] 06/30/16 05/25/17 8.15 12.2/35.5 153k 5.21 Dex 40 mg 05/25-05/28 [facility] 06/1505/04/17 7.77 12.4/36.3 153k 4.74 Dex 40 mg 05/04-05/07 [facility] 05/2504/20/17 10.15 12.6/35.2 175k 5.67 Completed 4 days of dex 04/16/17 [facility] 05/04/17 04/10/17 10.44 12.3/36.1 112k 7.26 4ht [...] on filedocumented in this encounter Care Teams Livestock Judging Coach Relationship Specialty Start Date End Date Presley Santillan MD [address] [place] [address] PCP - General Internal Medicine 02/10/17 documented as of this encounter
--- OUTSIDE RECORDS SUMMARY | 2024-05-16 17:27 | XMS_ITS | Encounter Summary ---
Author Organization [facility] Address [facility] [place] [address] Care Team Providers Care Wedding Day Coordinator Name Role Phone Presley Santillan MD Primary Care Provider Reason for Visit * Reason Comments Follow-up post-procedure Abdominal Pain Encounter Details Date Type Department Care Team (Late st Contact Info) Description 07/13/2017 9:30 AM EST Office Visit [place] [address] Marino Smith MD [facility] [place] [address] Irritable bowel syndrome with diarrhea; Abdominal pain, [...] the issues outlined above. Marino Smith MD [facility] Gastroenterology documented in this encounter Plan of Treatment Not on file documented as of this encounter Visit Diagnoses Diagnosis Irritable bowel syndrome with diarrhea Irritable bowel syndrome Abdominal pain, generalized Abdominal bloating Flatulence, eructation, and gas pain Functional diarrhea documented in this encounter Care Teams Wedding Day Coordinator Relationship Specialty Start Date End Date Presley Santillan MD [address] [place] [address] PCP - General Internal Medicine 02/10/17 documented as of this encounter
--- OUTSIDE RECORDS SUMMARY | 2024-05-16 17:27 | XMS_ITS | Encounter Summary ---
Author Organization [facility] [place] [address] Care Team Providers Care M48/M60 Tank Driver Name Role Phone Presley Santillan MD Primary Care Provider [phone] Reason for Visit * Reason Onset Date Comments Labs Only 12/01/2017 Encounter Details Date Type Department Care Team (Late st Contact Info) Description 12/01/2017 Telephone Hematology Oncology at [address] [address] Kandis Hill I RN Labs [...] on filedocumented in this encounter Care Teams M48/M60 Tank Driver Relationship Specialty Start Date End Date Presley Santillan MD [address] [place] [address] PCP - General Internal Medicine 02/10/17 documented as of this encounter
--- OUTSIDE RECORDS SUMMARY | 2024-05-16 17:27 | XMS_ITS | Encounter Summary ---
Author Organization [facility] [place] [address] Care Team Providers Care Rug Backing Stenciler Name Role Phone Presley Santillan MD Primary Care Provider Encounter Details Date Type Department Care Team (Late st Contact Info) Description 06/23/2017 Telephone Hematology/Oncology at [address] [address] Yusra Troy Social History Tobacco [...] filedocumented in this encounter Care Teams Rug Backing Stenciler Relationship Specialty Start Date End Date Presley Santillan MD [address] [place] [address] PCP - General Internal Medicine 02/10/17 documented as of this encounter
--- OUTSIDE RECORDS SUMMARY | 2024-05-16 17:27 | XMS_ITS | Encounter Summary ---
Author Organization [facility] Address [facility] [place] [address] Care Team Providers Care Respite Worker Name Role Phone Presley Santillan MD Primary Care Provider Encounter Details Date Type Department Care Team (Late st Contact Info) Description 07/18/2019 12:30 PM EST - 07/18/2019 3:44 PM EST Hospital En[place] [id number] Marino Smith MD [facility] [address] Discharge Disposition: Home Social History Tobacco Use [...] sent through Care Everywhere. * Colonoscopy: Post-op (Polish) documented in this encounter Medications at Time [...] Other (See Comments) MAKES ME RESTLESS ??? [place] Other (See Comments) Abdominal pain ??? Cis [...] complication. Informed Consent signed by patient (or hardware supplies sales representative). documented in this encounter Plan of Treatment Not on file documented as of this encounter Procedures Procedure Name Priority Date/Time Associated Diagnosis Comments SPECIMEN TO PATHOLOGY Routine 07/18/2019 2:44 PM EST SURGICAL PATHOLOGY REPORT Routine 07/18/2019 2:41 PM EST COLONOSCOPY Routine 07/18/2019 2:20 PM EST Colonoscopy, Biopsy ([id number]) 07/18/2019 2:19 PM EST colo documented in this encounter Results * Specimen to Pathology (07/18/2019 2:44 PM EST) AP Specimen 07/18/2019 2:44 PM EST 07/18/2019 2:[address] [facility] - 07/18/2019 2:44 PM EST Specimen requisition ordered. ??Separate Pathology report to follow Marino Smith MD PATHOLOGY/CYTOLOG Y ORDERABLES [facility] [place] [address] * Surgical Pathology Report (07/18/2019 2:41 PM EST) Final Diagnosis [id number] ? Location: 4T; EA10; A The signing pathologist has (i) examined the relevant preparation(s) for the specimen(s) and (ii) rendered or confirmed the diagnosis(es). . ?Surgical Pathology DIAGNOSIS Random colon, biopsy: Colonic mucosa within normal limits. CR-[id number] Electronically signed by: ??Tati Bunch MD Verified: ??07/22/2019 ?Pathologist Performed at: ??-[facility] Dept. of Pathology, [place], [place] CLINICAL INFORMATION Specimen Submitted: A - Random colon biopsies non-targeted Clinical History and Diagnosis: Chronic diarrhea SPECIMEN PROCESSING A - Labeled/Fixativ e: Random colon biopsies non-targeted, formalin. Quantity/Size: Six, averaging 0.3 cm. Tissue Description: Soft, pink tissues. Sections/Proces sing: Submitted en toto ??in 2 cassettes labeled A1-A2. ??ejr 07/22/2019 9:[address] [facility] GI Biopsy 07/18/2019 2:41 PM EST 07/18/2019 2:41 PM EST Marino Smith MD PATHOLOGY/CYTOLOG Y ORDERABLES [facility] [place] [address] * COLONOSCOPY (07/18/2019 2:20 PM EST) COLONOSCOPY [facility] Endoscopy ___ Procedure Date: 07/18/2019 2:20 PM ? Patient Name: Daniela Gardner ? Date of : 1990 ? Age: 28 ? Order #: [id number] ? Instrument Name: [id number] ? ___ Procedure: ? Colonoscopy Indications: ? [...] preparation was ? evaluated using the BBPS ([place] ? Bowel Preparation Scale) with scores ? [...] PROVATION 07/18/2019 2:20 PM EST Jessica Mohamud JOB PLACEMENT COUNSELOR GENERAL SURGICAL ORDERABLES PROVATION documented in this [...] RN) documented in this encounter Care Teams Respite Worker Relationship Specialty Start Date End Date Presley Santillan MD [address] [place] [address] PCP - General Internal Medicine 02/10/17 documented as of this encounter
--- OUTSIDE RECORDS SUMMARY | 2024-05-16 17:27 | XMS_ITS | Encounter Summary ---
Author Organization [facility] [place] [address] Care Team Providers Care Mixing Machine Tender Cork Gasket Name Role Phone Presley Santillan MD Primary Care Provider Reason for Visit * Reason Onset Date Comments Labs Only 04/22/2017 lab tracking Encounter Details Date Type Department Care Team (Late st Contact Info) Description 04/22/2017 Telephone Hematology/Oncology at [address] [phone] Anamaria Lamas RN Labs [...] of dex on Thursday. Daniela Sharon Gardner [id number] Diagnosis: ITP Labs ordered: every 3 weeks [...] 166k 9.67 1st rituxan given 03/11 [facility] 03/16 documented in this encounter Plan of Treatment Not on file documented as of this encounter Visit Diagnoses Not on filedocumented in this encounter Care Teams Mixing Machine Tender Cork Gasket Relationship Specialty Start Date End Date Presley Santillan MD [address] [place] [address] PCP - General Internal Medicine 02/10/17 documented as of this encounter
--- OUTSIDE RECORDS SUMMARY | 2024-05-16 17:27 | XMS_ITS | Encounter Summary ---
Author Organization [facility] Address [facility] [place] [address] Care Team Providers Care Adjuster Electrical Contacts Name Role Phone Presley Santillan MD Primary Care Provider Encounter Details Date Type Department Care Team (Late st Contact Info) Description 04/22/2017 12:30 PM EDT Office Visit Hematology/Oncology at [address] [phone] Mercedez Whitfield MD [facility] DR HEMATOLOGY [place] [address] Acute ITP Social History Tobacco Use Types [...] purpura documented in this encounter Care Teams Adjuster Electrical Contacts Relationship Specialty Start Date End Date Presley Santillan MD [address] [place] [address] PCP - General Internal Medicine 02/10/17 documented as of this encounter
--- OUTSIDE RECORDS SUMMARY | 2024-05-16 17:27 | XMS_ITS | Encounter Summary ---
Author Organization [facility] [place] [address] Care Team Providers Care Balloon Design Printer Name Role Phone Presley Santillan MD Primary Care Provider [phone] Reason for Visit * Reason Onset Date Comments Labs Only 03/31/2017 Lab Tracking Encounter Details Date Type Department Care Team (Late st Contact Info) Description 03/31/2017 Telephone Hematology Oncology at [address] [phone] Carlita Hoskins RN Labs Only [...] 11:17 AM EDT LAB TRACKING Daniela Gardner [id number] Diagnosis: ITP Labs ordered: weekly CBC Medications: [...] on filedocumented in this encounter Care Teams Balloon Design Printer Relationship Specialty Start Date End Date Presley Santillan MD [address] [place] [address] PCP - General Internal Medicine 02/10/17 documented as of this encounter
--- OUTSIDE RECORDS SUMMARY | 2024-05-16 17:27 | XMS_ITS | Encounter Summary ---
Author Organization [facility] [place] [address] Care Team Providers Care Pathology Secretary Name Role Phone Presley Santillan MD Primary Care Provider Encounter Details Date Type Department Care Team (Late st Contact Info) Description 03/12/2017 Telephone Hematology/Oncology at [address] [phone] Solo Emmanuel Social History Tobacco [...] on filedocumented in this encounter Care Teams Pathology Secretary Relationship Specialty Start Date End Date Presley Santillan MD [address] [place] [address] PCP - General Internal Medicine 02/10/17 documented as of this encounter
--- OUTSIDE RECORDS SUMMARY | 2024-05-16 17:27 | XMS_ITS | Encounter Summary ---
Author Organization [facility] [address] Care Team Providers Care Equal Opportunity Counselor Name Role Phone Presley Santillan MD Primary Care Provider Reason for Visit * Diagnostic Test (Routine) - Closed Specialty Diagnoses / Procedures Referred By Contac t Referred To Contact Radiology Diagnoses Alternating constipation and diarrhea Abdominal pain, unspecified location Procedures MRI Enterography wwo Contrast Litzy Barron APRN [facility] [place] [address] [place] [address] Referral ID Status Reason Start Date Expiration Date V isits Requested Visits Authorized [id number] Closed Specialty Service Requested 04/06/2017 06/04/2017 1 1 Encounter Details Date Type Department Care Team (Latest Contact Info) Description 04/17/2017 10:28 AM EDT - 04/17/2017 11:59 PM EDT Hospital [place] [address] Litzy Barron APRN [facility] [place] [place] [address] Discharge Disposition: Home Social History [...] mLs documented in this encounter Care Teams Equal Opportunity Counselor Relationship Specialty Start Date End Date Presley Santillan MD [address] [place] [address] PCP - General Internal Medicine 02/10/17 documented as of this encounter
--- OUTSIDE RECORDS SUMMARY | 2024-05-16 17:27 | XMS_ITS | Encounter Summary ---
Author Organization [facility] [place] [address] Care Team Providers Care Hse Manager Name Role Phone Presley Santillan MD Primary Care Provider Reason for Visit * Reason Onset Date Comments Labs Only 11/04/2017 Lab Tracking Encounter Details Date Type Department Care Team (Late st Contact Info) Description 11/04/2017 Telephone Hematology/Oncology at [address] [phone] Nolberto Monreal, RN Labs Only [...] 11:36 AM EDT LAB TRACKING Yaneth Gardner [id number] Diagnosis: ITP Labs ordered: every 4 weeks [...] 5.45 Had bruising on knees and elbows [facility] 07/28/18 06/01/17 7.27 12.2/36.4 209k [...] on filedocumented in this encounter Care Teams Hse Manager Relationship Specialty Start Date End Date Presley Santillan MD [address] [place] [address] PCP - General Internal Medicine 02/10/17 documented as of this encounter
--- OUTSIDE RECORDS SUMMARY | 2024-05-16 17:27 | XMS_ITS | Encounter Summary ---
Author Organization [facility] [place] [address] Care Team Providers Care Rack Worker Name Role Phone Presley Santillan MD Primary Care Provider [phone] Reason for Visit * Reason Onset Date Comments Labs Only 05/05/2017 Encounter Details Date Type Department Care Team (Late st Contact Info) Description 05/05/2017 Telephone Hematology Oncology at [address] [phone] Kandis Hill RN Labs Only [...] AM EST Patient had labs today at [facility] and was asking for results. Normal lab values reported to patient. Patient satisfied with exchange. documented in this encounter Plan of Treatment Not on file documented as of this encounter Visit Diagnoses Not on filedocumented in this encounter Care Teams Rack Worker Relationship Specialty Start Date End Date Presley Santillan MD [address] [place] [address] PCP - General Internal Medicine 02/10/17 documented as of this encounter
--- OUTSIDE RECORDS SUMMARY | 2024-05-16 17:27 | XMS_ITS | Encounter Summary ---
Author Organization [facility] [place] [address] Care Team Providers Care Head Animal Keeper Name Role Phone Presley Santillan MD Primary Care Provider [phone] Reason for Visit * Reason Onset Date Comments Reminder Appointment 06/16/2018 for labs Encounter Details Date Type Department Care Team (Late st Contact Info) Description 06/16/2018 Telephone Hematology/Oncology at [address] [phone] Nolberto Monreal RN Reminder Appointment [...] filedocumented in this encounter Care Teams Head Animal Keeper Relationship Specialty Start Date End Date Presley Santillan MD [address] [place] [address] PCP - General Internal Medicine 02/10/17 documented as of this encounter
--- OUTSIDE RECORDS SUMMARY | 2024-05-16 17:27 | XMS_ITS | Encounter Summary ---
Author Organization [facility] [place] [address] Care Team Providers Care Boiler/Chiller Operator Name Role Phone Presley Santillan MD Primary Care Provider Reason for Visit * Reason Onset Date Comments Labs Only 10/01/2018 Lab Tracking Encounter Details Date Type Department Care Team (Late st Contact Info) Description 10/01/2018 Telephone Hematology/Oncology at [address] [phone] Geovanna Quintero, RN Labs Only [...] 4:57 PM EDT LAB TRACKING Yaneth Gardner [id number] Diagnosis: ITP Labs ordered: every 3 months [...] on filedocumented in this encounter Care Teams Boiler/Chiller Operator Relationship Specialty Start Date End Date Presley Santillan MD [address] [place] [address] PCP - General Internal Medicine 02/10/17 documented as of this encounter
--- OUTSIDE RECORDS SUMMARY | 2024-05-16 17:27 | XMS_ITS | Encounter Summary ---
Author Organization [facility] [place] [address] Care Team Providers Care Flash Drier Operator Name Role Phone Presley Santillan MD Primary Care Provider Reason for Referral * Diagnostic Test (Routine) - Closed Specialty Diagnoses / Procedures Referred By Contac t Referred To Contact Radiology Diagnoses Alternating constipation and diarrhea Abdominal pain, unspecified location Procedures MRI Enterography wwo Contrast Litzy Barron APRN [facility] [place] [address] [place] [address] Referral ID Status Reason Start Date Expiration Date V isits Requested Visits Authorized [id number] Closed Specialty Service Requested 04/06/2017 06/04/2017 1 1 Reason for Visit * Diagnostic Test (Routine) - Closed Specialty Diagnoses / Procedures Referred By Contac t Referred To Contact Radiology Diagnoses Alternating constipation and diarrhea Abdominal pain, unspecified location Procedures MRI Enterography wwo Contrast Litzy Barron APRN [facility] [place] [address] [place] [address] Referral ID Status Reason Start Date Expiration Date V isits Requested Visits Authorized [id number] Closed Specialty Service Requested 04/06/2017 06/04/2017 1 1 Encounter Details Date Type Department Care Team (Latest Contact Info) Description 04/17/2017 10:25 AM EDT - 04/17/2017 10:27 AM EDT Hospital Encounter MRI at [facility] [place] [address] Litzy Barron APRN [facility] [address] Alternating constipation and diarrhea; Abdominal pain, unspecified [...] [address] [place] [address] Female [phone] (home) Telephone Information: Presley Santillan MD No primary care provider on file. Allergies Allergen Reactions ??? [place] Other (See Comments) Abdominal pain ??? Cis [...] ( XXX ) You must have a milk pickup driver present when you check in. This patient has been informed that they require a milk pickup driver to drive them home after this procedure. In the absence of a milk pickup driver, IR will not be able to sedate for your scan. Pt verbalized understanding of these instructions during the pre-procedure education via phone. Yes Robertson of milk pickup driver: Mom- carrier Phone number PRIOR SCAN [...] mg documented in this encounter Care Teams Flash Drier Operator Relationship Specialty Start Date End Date Presley Santillan MD [address] [place] [address] PCP - General Internal Medicine 02/10/17 documented as of this encounter
--- OUTSIDE RECORDS SUMMARY | 2024-05-16 17:27 | XMS_ITS | Encounter Summary ---
Author Organization [facility] [place] [address] Care Team Providers Care Bucket Turner Name Role Phone Presley Santillan MD Primary Care Provider [phone] Reason for Visit * Reason Onset Date Comments Labs Only 04/10/2017 Encounter Details Date Type Department Care Team (Late st Contact Info) Description 04/10/2017 Telephone Hematology Oncology at [address] [phone] Kandis Hill I, RN Labs [...] cycle of dex on Thursday. Daniela Gardner [id number] Diagnosis: ITP Labs ordered: weekly CBC Medications: [...] 12.1/34.8 129k 8.18 2nd Rituxan given 03/18 [facility] 03/2403/06/17 11.59 11.8/35.4 166k 9.67 1st rituxan given 03/11 [facility] 03/16 documented in this encounter Plan of Treatment Not on file documented as of this encounter Visit Diagnoses Not on filedocumented in this encounter Care Teams Bucket Turner Relationship Specialty Start Date End Date Presley Santillan MD [address] [place] [address] PCP - General Internal Medicine 02/10/17 documented as of this encounter
--- OUTSIDE RECORDS SUMMARY | 2024-05-16 17:27 | XMS_ITS | Encounter Summary ---
Author Organization [facility] [place] [address] Care Team Providers Care Staple Cutter Name Role Phone Presley Santillan MD Primary Care Provider Reason for Visit * Reason Onset Date Comments Follow-up 12/20/2018 Encounter Details Date Type Department Care Team (Late st Contact Info) Description 12/20/2018 Telephone Hematology/Oncology at [address] [phone] Anamaria Lamas RN Follow-up Social [...] on filedocumented in this encounter Care Teams Staple Cutter Relationship Specialty Start Date End Date rPesley Santillan MD [address] [place] [address] PCP - General Internal Medicine 02/10/17 documented as of this encounter
--- OUTSIDE RECORDS SUMMARY | 2024-05-16 17:27 | XMS_ITS | Encounter Summary ---
Author Organization [facility] Address [facility] [place] [address] Care Team Providers Care Filament Maker Name Role Phone Presley Santillan MD Primary Care Provider [phone] Encounter Details Date Type Department Care Team (Latest Contact Info) Description 06/03/2017 9:00 AM EST Office Visit Hematology/Oncology at [address] [phone] Angeli Dao, COATING MIXER SUPERVISOR [facility] [place] [address] Idiopathic thrombocytopenic purpura Social History Tobacco Use [...] this encounter Progress Notes * Angeli Dao, COATING MIXER SUPERVISOR - 06/03/2017 9:00 AM EST Subjective: [...] purpura documented in this encounter Care Teams Filament Maker Relationship Specialty Start Date End Date Presley Santillan MD [address] [place] [address] PCP - General Internal Medicine 02/10/17 documented as of this encounter
--- OUTSIDE RECORDS SUMMARY | 2024-05-16 17:27 | XMS_ITS | Encounter Summary ---
Author Organization [facility] Address [facility] [place] [address] Care Team Providers Care Metal Roofer Name Role Phone Presley Santillan MD Primary Care Provider [phone] Encounter Details Date Type Department Care Team (Late st Contact Info) Description 12/20/2018 Orders Only Hematology/Oncology at [address] [phone] Mercedez Whitfield MD [facility] DR HEMATOLOGY [place] [address] Idiopathic thrombocytopenic purpura Social History Tobacco Use [...] purpura documented in this encounter Care Teams Metal Roofer Relationship Specialty Start Date End Date Presley Santillan MD [address] [place] [address] PCP - General Internal Medicine 02/10/17 documented as of this encounter
--- OUTSIDE RECORDS SUMMARY | 2024-05-16 17:27 | XMS_ITS | Encounter Summary ---
Author Organization [facility] Address [facility] [place] [address] Care Team Providers Care Operators Teacher Name Role Phone Presley Santillan MD Primary Care Provider Encounter Details Date Type Department Care Team (Late st Contact Info) Description 09/23/2017 3:30 PM EDT Office Visit Hematology/Oncolog y at [address] [phone] Mercedez Whitfield MD [facility] [address] HEMATOLOGY [place] [address] Idiopathic thrombocytopenic purpura Social History Tobacco Use [...] purpura documented in this encounter Care Teams Operators Teacher Relationship Specialty Start Date End Date Presley Santillan MD [address] [place] [address] PCP - General Internal Medicine 02/10/17 documented as of this encounter
--- OUTSIDE RECORDS SUMMARY | 2024-05-16 17:27 | XMS_ITS | Encounter Summary ---
Author Organization [facility] Address [facility] [place] [address] Care Team Providers Care Power And Recovery Shift Engineer Name Role Phone Presley Santillan MD Primary Care Provider [phone] Encounter Details Date Type Department Care Team (Late st Contact Info) Description 04/01/2017 9:30 AM EDT Office Visit Hematology/Oncolog y at [address] [phone] Mercedez Whitfield MD [facility] DR HEMATOLOGY [place] [address] Angeli Dao, [facility] DR [place]EMATOLOG[place] [address] Idiopathic thrombocytopenic purpura Social History Tobacco Use [...] this encounter Progress Notes * Angeli Dao, HIGH DENSITY PRESS LABORER - 04/01/2017 9:30 AM EDT Subjective: Patient [...] 166k 9.67 1st rituxan given 03/11 [facility] 03/16 BP 119/72 (Patient Position: Sitting) Pulse [...] 6 cycles to maximize her chance of intermediate manager response. - she will discuss with her [...] purpura documented in this encounter Care Teams Power And Recovery Shift Engineer Relationship Specialty Start Date End Date Presley Santillan MD [address] [place] [address] PCP - General Internal Medicine 02/10/17 documented as of this encounter
--- OUTSIDE RECORDS SUMMARY | 2024-05-16 17:27 | XMS_ITS | Encounter Summary ---
Author Organization [facility] [place] [address] Care Team Providers Care Animal Handler Name Role Phone Presley Santillan MD Primary Care Provider [phone] Encounter Details Date Type Department Care Team (Late st Contact Info) Description 12/02/2017 Notes Only Hematology Oncology at [address] [phone] Kandis Hill RN Social History Tobacco Use [...] Patient's last name is now Joseph. Clinical [place] notified. documented in this encounter Plan of Treatment Not on file documented as of this encounter Visit Diagnoses Not on filedocumented in this encounter Care Teams Animal Handler Relationship Specialty Start Date End Date Presley Santillan MD [address] [place] [address] PCP - General Internal Medicine 02/10/17 documented as of this encounter
--- OUTSIDE RECORDS SUMMARY | 2024-05-16 17:28 | XMS_ITS | Encounter Summary ---
Author Organization [facility] Address [address] [place] [address] Care Team Providers Care Store Operations Manager Name Role Phone Mir Medina MD Primary Care Provider [phone] Encounter Details Date Type Department Care Team (Latest Contact Info) Description 01/15/2019 11:51 EDT - 01/15/2019 23:59 EDT Hospital Encounter [address] [address] Unknown, Provider, MD Discharge Disposition: Home or Self Care Social History Tobacco Use Types Packs/Day Years Used Date Smoking Tobacco: Never Assessed Comments Unknown Sex and Gender Information Value Date Recorded Sex Assigned at Not on file Legal Sex Female 18:42 EST Gender Identity Not on file Sexual Orientation Not on file documented as of this encounter Discharge Disposition Disposition Code Departure Means Destination Home or Self Senior Care documented in this encounter Plan of Treatment Not on file documented as of this encounter Visit Diagnoses Not on filedocumented in this encounter Care Teams Store Operations Manager Relationship Specialty Start Date End Date Mir Medina MD PCP - General 09/07/15 01/18/19 documented as of this encounter
--- OUTSIDE RECORDS SUMMARY | 2024-05-16 17:28 | XMS_ITS | Encounter Summary ---
Author Organization [facility] Address [address] [place] [address] Care Team Providers Care Bakery Manager Name Role Phone Jessica Mohamud CALL CENTER RN Primary Care Provider [phone] Encounter Details Date Type Department Care Team (Latest Contact Info) Description 06/07/2019 Lab Requisition [facility] Pathology & Laboratory Medicine - [facility] [address] [place] [address] Jessica Mohamud, CALL CENTER RN [address] [facility] [address] [place] [address] Encounter for general adult medical [...] Risk types, PCR Negative Negative 06/13/2019 14:48 [facility] Comment:No E6 or E7 mRNA is detected from HPV types 16,18,31,33,35,39,45,51,52,56,58,59,66, and 68 by import coordinator mediated amplification. Papanicolaou smear specimen (specimen) CERVIX UTERI STRUCTURE / Unknown 06/06/2019 17:30 EST 06/10/2019 15:31 EST us Jessica Mohamud CALL CENTER RN MICROBIOLOGY - GENERAL OR DERABLES Final Result [facility] [address] [place] [id number] * PAP TEST (06/06/2019 17:30 EST) Specimens A. Cervix and/or Endocervix, , ThinPrep Imaging System with Manual Evaluation 06/13/2019 14:48 [facility] Specimen Adequacy Satisfactory for Evaluation - transformation zone component present 06/13/2019 14:48 [facility] General Categorization Negative for intraepithelial lesion or malignancy 06/13/2019 14:48 [facility] Attestation . 06/13/2019 14:48 [facility] at 1448 Clinical History NONE 06/13/20 19 14:48 [facility] HPV The result for the Human Papillomavirus (HPV) Detection-High Risk Types is Negative. No E6 or E7 mRNA is detected from HPV types 16,18,31,33,35,39 ,45,51,52,56,58,5 9,66, and 68 by import coordinator mediated amplification.Jenifer ting was performed on specimen [id number] and was resulted on 06/13/2019 1444 EST by SHALA, LAB INSTRUMENT RESULTS IN 06/13/2019 14:48 EST [facility] Scanned Images 06/13/2019 14:48 EST [facility] Papanicolaou smear specimen (specimen) CERVIX UTERI STRUCTURE / Unknown 06/06/2019 17:30 EST 06/08/2019 11:41 EST us Jessica Mohamud CALL CENTER RN PATHOLOGY ORDERABLES Shannon l Result Performing Organization Address City/[facility] Co de Phone Number [facility] [address] [place] [address] * CHLAMYDIA/N. GONORRHOEAE AMPLIFIED RNA, THINPREP (06/06/2019 17:30 EST) Neisseria gonorrhoeae Result Negative Negative 06/08/2019 15:02 EST [facility] Chlamydia trachomatis Result Negative Negative 06/08/2019 15:02 [facility] Papanicolaou smear specimen (specimen) CERVIX UTERI STRUCTURE / Unknown 06/06/2019 17:30 EST 06/08/2019 8:28 EST us Jessica Mohamud CALL CENTER RN MICROBIOLOGY - GENERAL OR DERABLES Final Result Performing Organization Address [facility] Co de Phone Number [facility] [address] [place] [phone] documented in this encounter Visit Diagnoses Diagnosis Encounter for general adult medical examination without abnormal findings Unspecified general medical examination Encounter for screening for malignant neoplasm of cervix Screening for malignant neoplasm of the cervix Encounter for gynecological examination (general) (routine) without abnormal findings documented in this encounter Care Teams Bakery Manager Relationship Specialty Start Date End Date Jessica Mohamud APRN [address] [place] [address] PCP - General 01/19/19 documented as of this encounter
--- OUTSIDE RECORDS SUMMARY | 2024-05-16 17:28 | XMS_ITS | Encounter Summary ---
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 Name Role Phone Presley Santillan MD Primary Care Provider [phone] Reason for Visit * Auth/Cert Specialty Diagnoses / Procedures Referred By Contac t Referred To Contact Diagnoses Acute ITP THROMBOCYTOPENIA Procedures emergency ipi Referral ID Status Reason Start Date Expiration Date Visits Re quested Visits Authorized [id number] 1 1 Encounter Details Date Type Department Care Team (Latest Contact Info) Description 02/10/2017 7:43 PM EDT - 02/13/2017 2:31 PM EDT Hospital Encounter 1 [place] [id number] Hemal Goodrich Jr., MD [facility] [address] HEMATOLOGY [place] [address] Acute ITP Discharge Disposition: Home Social History [...] Daniela Gardner Patient Age: 26 y.o. Language: South Korean Race: White Ethnicity: Not nor Admit date: [...] She presents today from her home in [place], [place] after being found to have progressive [...] 0 Updated Allergies/ADRs: Allergies Allergen Reactions ??? Sturbridge Other (See Comments) Abdominal pain ??? Cis [...] CLIN 03/06/2017 4:15 PM Jessica Mohamud APRN [place] Your Inpatient Doctor: Hemal Goodrich MD Your Primary Care Provider: Presley Santillan MD [phone] For questions regarding this document or issues relating to this hospitalization on the Medical Service, please contact your inpatient physician through the [facility] Instructional Technology Director . Issues afterhours and on weekends will be handled by the Hospitalist staff on-call. General Instructions None Future Appointments and Orders Future Appointments Provider Department Dept Phone 02/17/2017 10:00 AM LABORATORY, TECH [facility] Onc 3K [phone] 02/17/2017 11:00 AM Yovani Fajardo MD [facility] Onc [phone] 02/17/2017 1:00 PM Litzy Barron APRN Gastroenterology [phone] Provider Contact Information: Presley Santillan MD [address] / [place] [address] Discharge References/Attachments: Discharge References/Attachments None Inpatient BMT/Hematology [...] 10:00 AM LABORATORY, TECH [facility] 3K [facility] 02/17/2017 11:00 AM Yovani Fajardo MD [facility] [place] [facility] 02/17/2017 1:00 PM Litzy Barron APRN [facility] [place] [facility] 03/06/2017 4:15 PM Jessica Mohamud APRN [place], [place] Your Inpatient Doctor: Hemal Goodrich MD Your Primary Care Provider: Presley Santillan MD [phone] For questions regarding this document or issues relating to this hospitalization on the Medical Service, please contact your inpatient physician through the [facility] Instructional Technology Director . Issues afterhours and on weekends will [...] assistance. Diamond Morelos RN Case Management for [facility] pgr [phone] * Hemal Goodrich MD - [...] PCP: Presley Santillan MD PCP phone number: [phone] Date of Admission: 02/10/2017 ( Hospital Day 2 days ) Service: Hem/Onc Team A pg [id number] (19/01) Responsible Attending:Hemal Goodrich MD ID: Daniela [...] Mao DO PGY1 Internal Medicine 02/12/2017 Pager #[phone] 19/01 Heme/Onc/BMT Team A Pager #[phone] Inpatient BMT/Hematology Staff Addendum I have independently [...] PCP: Presley Santillan MD PCP phone number: [phone] Date of Admission: 02/10/2017 ( Hospital Day 1 day ) Service: Hem/Onc Team A pg [id number] (19/01) Responsible Attending:Hemal Goodrich MD ID: Daniela [...] Mao DO PGY1 Internal Medicine 02/11/2017 Pager #[phone] 19/01 Heme/Onc/BMT Team A Pager #[phone] Heme Staff Addendum- Please see my addendum from this date to pt's H+P. -[facility] documented in this encounter H&P Notes * Hemal Goodrich MD - 02/11/2017 5:24 AM EDT Admission History and Physical Patient Name: Daniela Gardner Responsible Attending: MD Kp PCP: Presley Santillan MD PCP phone #: [phone] ID/Chief Complaint: thrombocytopenia History of Present Illness: Ms. Daniela Gardner is a 26 y/o female with a past medical hx significant for irritable bowel syndrome, and Raynaud's phenomenon. She presents today from her home in [place], [place] after being found to have progressive [...] previously been rx thyroid supplementation by a detective narcotics and vice that she self d/c Allergies: Allergies Allergen Reactions ??? Sturbridge Other (See Comments) Abdominal pain ??? 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 She was subsequently transferred to [facility] for management of her thrombocytopenia. For the [...] had a colonoscopy at that time at [facility] by Dr. Matute; polyps were identified [...] was seen by Dr. Presley Santillan at [facility] on 02/09/17 and referred to [facility] given abnormal labs. Past Medical History: No past medical history on file. Past Surgical History: No past surgical history on file. Medication History: No current facility-administered medications on file prior to encounter. No current outpatient prescriptions on file prior to encounter. Allergies: Allergies Allergen Reactions ??? Sturbridge Other (See Comments) Abdominal pain ??? Cis [...] signed by: Candi Goldsmith MD Gastroenterology Fellow [facility] Pager [phone] 02/11/2017 Associated attestation - Lori Roberts MD [...] care. Lori Roberts MD Gastroenterology Attending Pager [phone] * Plan of Care - Litzy Arciniega [...] had a colonoscopy at that time at [facility] by Dr. Matute; polyps were identified [...] was seen by Dr. Presley Santillan at [facility] on 02/09/17 and referred to [facility] given abnormal labs. Workup so far [...] OR prochlorperazine ALLERGIES Allergies Allergen Reactions ??? Sturbridge Other (See Comments) Abdominal pain ??? 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 Provided copy(ies) of [place] [employer] Advance Directives Taking Steps booklet with forms. 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 3 steps to enter telma's home and lives on one level. [address] [facility] [address] Social & Family Supports/Community Resources: Family Extended Emergency Contact Information Primary Emergency Contact: Yousuf Noyola Address: [address] [place] [id number] [facility] Mobile Relation: Friend Secondary Emergency Contact: Justus Gardner Address: [address] [place] [address] [facility] Mobile Relation: Mother Behavioral Health History: n/a Substance Use/Abuse: n/a Other Pertinent/Service Specific Information: n/a Health/Prescription Coverage: Primary Insurance: [employer]ocket OOS Payor: [employer] [facility] OOS / Plan: [facility] OOS PPO / Product Type: *No Product type* / Secondary Insurance: [employer] [facility] Prescription Coverage: / Preferred Pharmacy: [facility] [address] Other: n/a Primary Care Provider: Presley Santillan MD [phone] Patient/Caregiver Goals of Treatment: Figure out whats [...] of care planning. Diamond Morelos RN Pager: [phone] * Plan of Care - Naida Patterson [...] 3:28 AM EDT) Neutrophil % 84.4 % [facility] Neutrophil Absolute 8.60(H) 1.70 - 6.10 x10(3)/mc L [facility] Lymph % 8.0 % [facility] Lymphocytes Abs 0.8(L) 0.9 - 3.2 x10(3)/mc L [facility] Monocyte % 6.7 % [facility] Monocyte Abs 0.7 0.3 - 0.9 x10(3)/mc L [facility] Eos % 0.0 % [facility] Eosinophils Abs 0.0 0.0 - 0.4 x10(3)/mc L [facility] Basophil % 0.1 % [facility] Baso Absolute 0.0 0.0 [...] Immature Gran Absolute 0.08(H) 0.00 - 0.04 x10(3)/[facility] LABORATORY Blood specimen (specimen) 02/13/2017 3:28 AM EDT 02/13/2017 4:00 AM EDT Narrative Resulting Agency Comment Spec In Lab Hemal Goodrich Jr., MD HEMATOLOGY ORDERABLE S [facility] [place] [address] * (ABNORMAL) Hemogram (02/13/2017 3:28 AM EDT) White Blood Cell 10.2(H) 4.0 - 9.5 x10(3)/[facility] LABORAT[facility] Red Blood Cell 3.53(L) 4.00 - 5.21 x10(6)/[facility] Hemoglobin 11.5(L) 11.7 - 15.5 [...] HOSPITAL LABORATORY Platelet 86(L) 145 - 357 x10(3)/[facility] LABORATORY RDW Standard Deviation 37.8 37.0 - 46.0 fL [facility] RDW coefficient of variation 11.9 11.5 - 14.1 % [facility] Mean Platelet Volume 11.1 7.6 - 12.9 fL [facility] NRBC% auto 0.0 % [facility] NRBC Absolute 0.000 0.000 - 0.000 x10(3)/mc L [facility] Blood specimen (specimen) 02/13/2017 3:28 AM EDT 02/13/2017 4:00 AM EDT Narrative Resulting Agency Comment Spec In Lab Hemal Goodrich Jr., MD HEMATOLOGY ORDERABLE S Performing Organization Address City/[facility]/ZIP Co de Phone Number [facility] [place] [address] * Magnesium (02/13/2017 3:28 AM EDT) Pathologist [facility] Magnesium 0.84 0.69 - 1.07 mmol/L [facility] Blood specimen (specimen) 02/13/2017 3:28 AM EDT 02/13/2017 4:00 AM EDT Narrative Resulting Agency Comment Spec In Lab Hemal Goodrich Jr., MD CHEMISTRY ORDERABLES Performing Organization Address [facility] Co de Phone Number [facility] [place] [address] * Hepatitis B Core Antibody, IgM (02/13/2017 3:28 AM EDT) Pathologist [facility] Hepatitis B Core IgM Negative Negative [facility] Blood specimen (specimen) 02/13/2017 3:28 AM EDT 02/13/2017 4:00 AM EDT Narrative Resulting Agency Comment Spec In Lab Hemal Goodrich Jr., MD CHEMISTRY ORDERABLES Performing Organization Address [facility] Co de Phone Number [facility] [place] [address] * (ABNORMAL) Basic Metabolic Panel (non-fasting) (02/13/2017 3:28 AM EDT) Pathologist [facility] Glucose 149 65 - 199 mg/dL [facility] Comment:Diabetes: >=200 mg/d L plus symptoms Blood Urea Nitrogen 9 8 - 18 mg/dL [facility] Creatinine 0.82 0.70 - 1.20 mg/dL [facility] Comment: Please note that the pediatric reference intervals supplied above were not validated at [facility]. Results from pediatric patients should be interpreted [...] LABORATORY Est Glomerular Filtration Rate >60 >=60 [facility] Comment: This estimated GFR (eGFR) [...] the following links into your internet browser. [email or web address] [email or web address] Blood specimen (specimen) 02/13/2017 3:28 AM EDT 02/13/2017 4:00 AM EDT Narrative Resulting Agency Comment Spec In Lab Hemal Goodrich Jr., [place] [address] * (ABNORMAL) Differential, Automated (02/12/2017 3:08 AM EDT) [facility] Neutrophil % 89.5 % [facility] Neutrophil Absolute 4.15 1.70 - 6.10 x10(3)/ L [facility] Lymph % 9.5 % [facility] Lymphocytes Abs 0.4(L) 0.9 - 3.2 x10(3)/ L [facility] Monocyte % 0.6 % [facility] Monocyte Abs 0.0(L) 0.3 - 0.9 x10(3)/ L [facility] Eos % 0.0 % [facility] Eosinophils Abs 0.0 0.0 - 0.4 x10(3)/[facility] LABORATORY Basophil % 0.0 % [facility] Baso Absolute 0.0 0.0 [...] ORDERABLE S [facility] [place] [address] * (ABNORMAL) Hemogram (02/12/2017 3:08 AM EDT) [...] HOSPITAL LABORATORY Platelet 33(L) 145 - 357 x10(3)/[facility] LABORATORY RDW Standard Deviation 35.2(L) 37.0 - 46.0 fL [facility] RDW coefficient of variation 11.4(L) 11.5 - 14.1 % [facility] Mean Platelet Volume 11.8 7.6 - 12.9 fL [facility] NRBC% auto 0.0 % [facility] NRBC Absolute 0.000 0.000 - 0.000 x10(3)/ L [facility] Blood specimen (specimen) 02/12/2017 3:08 AM EDT 02/12/2017 3:23 AM EDT Narrative Resulting Agency Comment Spec In Lab Hemal Goodrich Jr., MD HEMATOLOGY ORDERABLE S [facility] [place] [address] * Magnesium (02/12/2017 3:08 AM EDT) Magnesium 0.96 0.69 - 1.07 mmol/L [facility] Blood specimen (specimen) 02/12/2017 3:08 AM EDT 02/12/2017 3:23 AM EDT Narrative Resulting Agency Comment Spec In Lab Hemal Goodrich Jr., MD CHEMISTRY ORDERABLES [facility] [place] [address] * (ABNORMAL) Basic Metabolic Panel (non-fasting) (02/12/2017 [...] supplied above were not validated at [facility]. Results from pediatric patients should be interpreted [...] LABORATORY Est Glomerular Filtration Rate >60 >=60 [facility] Comment: This estimated GFR (eGFR) [...] the following links into your internet browser. [email or web address] [email or web address] Blood specimen (specimen) 02/12/2017 3:08 AM EDT 02/12/2017 3:23 AM EDT Narrative Resulting Agency Comment Spec In Lab Hemal Goodrich Jr., MD CHEMISTRY ORDERABLES Performing Organization Address [facility] Co de Phone Number [facility] [place] [address] * Helicobacter pylori Antigen Stool (02/11/2017 4:03 [...] - GENER AL ORDERABLES Performing Organization Address [facility] Co de Phone Number [facility] [place] [address] * IgG (02/11/2017 1:13 PM EDT) Immunoglobulin G 870 700 - 1,600 mg/dL [facility] Blood specimen (specimen) 02/11/2017 1:13 PM EDT 02/11/2017 1:32 PM EDT Narrative Resulting Agency Comment Spec In Lab Hemal Goodrich Jr., MD CHEMISTRY ORDERABLES Performing Organization Address [facility] Co de Phone Number [facility] [place] [address] * IgA (02/11/2017 1:13 PM EDT) IgA 189 70 - 400 mg/dL [facility] Blood specimen (specimen) 02/11/2017 1:13 PM EDT 02/11/2017 1:32 PM EDT Narrative Resulting Agency Comment Spec In Lab Hemal Goodrich Jr., MD CHEMISTRY ORDERABLES Performing Organization Address City/[facility]/ZIP Co de Phone Number [facility] [place] [address] * Hepatitis C Antibody (02/11/2017 1:13 PM EDT) Hepatitis C Antibody Negative Negative [facility] Comment: An updated Hepatitis C Ab assay reagent was implemented on 09/10/16. Please contact Dr. Alvarez at [phone] with any questions or concerns. Blood specimen (specimen) 02/11/2017 1:13 PM EDT 02/11/2017 1:32 PM EDT Narrative Resulting Agency Comment Spec In Lab Hemal Goodrich Jr., MD CHEMISTRY ORDERABLES Performing Organization Address [facility] Co de Phone Number [facility] [place] [place] [address] * Hepatitis B Surface Antibody (02/11/2017 1:13 PM EDT) Hepatitis B Surface Antibody, Quantitative >1,000.0 IU/L [facility] Comment: HepB Surface Ab Quant: Unvaccinated: < 8.5 IU/L Vaccinated: > 11.5 IU/L Hepatitis B Surface Antibody Positive [facility] Comment: Patient is considered to be immune to HBV infection. Expected Results: Vaccinated: Positive Unvaccinated: Negative Blood specimen (specimen) 02/11/2017 1:13 PM EDT 02/11/2017 1:32 PM EDT Narrative Resulting Agency Comment Spec In Lab Hemal Goodrich Jr., MD CHEMISTRY ORDERABLES Performing Organization Address City/[facility] Co de Phone Number [facility] [place] [address] * EKG 12 Lead (02/11/2017 12:50 PM EDT) Ventricular rate 58 BPM MUSE SYSTEM Atrial Rate 58 BPM MUSE SYSTEM P-R Interval 130 ms MUSE SYSTEM QRS Duration 96 ms MUSE SYSTEM Q-T Interval 418 ms MUSE SYSTEM QTC Calculated (Bezet) 410 ms MUSE SYSTEM Calculated P [employer] 62 degrees MUSE SYSTEM Calculated R [employer] 64 degrees MUSE SYSTEM Calculated T [employer] 33 degrees MUSE SYSTEM INTERPRETATION Sinus bradycardia with sinus arrhythmia Otherwise normal ECG No previous ECGs available Confirmed by MD Roberto, Jeff Lezama ([id number]) on 02/11/2017 2:16:18 PM MUSE SYSTEM 02/11/2017 12:5 0 PM EDT 02/11/2017 2:16 PM EDT Hemal Goodrich Jr., MD ECG ORDERABLES MUSE SYSTEM * Differential, Automated (02/11/2017 5:10 AM EDT) Neutrophil % 50.7 % [facility] Neutrophil Absolute 3.69 1.70 - 6.10 x10(3)/[facility] Lymph % 37.5 % [facility] Lymphocytes Abs 2.7 0.9 - 3.2 x10(3)/[facility] Monocyte % 7.7 % [facility] Monocyte Abs 0.6 0.3 - 0.9 x10(3)/[facility] Eos % 3.4 % [facility] Eosinophils Abs 0.2 0.0 - 0.4 x10(3)/[facility] Basophil % 0.4 % [facility] Baso Absolute 0.0 0.0 - 0.1 x10(3)/[facility] Immature Gran % 0.30 % [facility] [...] ORDERABLE S [facility] [place] [address] * (ABNORMAL) Hemogram (02/11/2017 5:10 AM EDT) White Blood Cell 7.3 4.0 - 9.5 x10(3)/ L [facility] Red Blood Cell 4.03 4.00 - 5.21 x10(6)/[facility] LABORATORY Hemoglobin 12.4 11.7 - 15.5 [...] LABORATORY Platelet 18(Critic al) 145 - 357 x10(3)/[facility] LABORATORY RDW Standard Deviation 36.1(L) 37.0 - 46.0 fL [facility] RDW coefficient of variation 11.5 11.5 - 14.1 % [facility] Mean Platelet Volume 13.3(H) 7.6 - 12.9 fL [facility] NRBC% auto 0.0 % [facility] NRBC Absolute 0.000 0.000 - 0.000 x10(3)/ L [facility] Blood specimen (specimen) 02/11/2017 5:10 AM EDT 02/11/2017 5:23 AM EDT Narrative Resulting Agency Comment Spec In Lab Hemal Goodrich Jr., MD HEMATOLOGY ORDERABLE S [facility] [place] [address] * (ABNORMAL) Basic Metabolic Panel (non-fasting) (02/11/2017 [...] supplied above were not validated at [facility]. Results from pediatric patients should be interpreted [...] LABORATORY Est Glomerular Filtration Rate >60 >=60 [facility] Comment: This estimated GFR (eGFR) [...] the following links into your internet browser. [email or web address] [email or web address] Blood specimen (specimen) 02/11/2017 5:10 AM EDT 02/11/2017 5:23 AM EDT Narrative Resulting Agency Comment Spec In Lab Hemal Goodrich Jr., MD CHEMISTRY ORDERABLES Performing Organization Address [facility] Co de Phone Number [facility] [place] [place] [address] * MARK Titer (02/10/2017 10:37 PM EDT) MARK Titer positive [facility] Comment: 1:160 Titer seen with Homogeneous/Diffuse pattern. ??Is suggestive of autoantibodies to nDNA, histones, or DNA-associated proteins. Blood specimen (specimen) 02/10/2017 10:37 PM EDT 02/11/2017 7:10 AM EDT Narrative Resulting Agency Comment Spec In Lab Hemal Goodrich Jr., MD IMMUNOLOGY ORDERABLE S Performing Organization Address [facility] [place] [address] * DNA Antibody (Double-Stranded) (02/10/2017 10:37 PM EDT) DNA Ab (DS) Neg Neg [facility] Blood specimen (specimen) 02/10/2017 10:37 PM EDT 02/11/2017 7:10 AM EDT Narrative Resulting Agency Comment Spec In Lab Hemal Goodrich Jr., MD LAB SEND OUT ORDERAB LES Performing Organization Address [facility] de Phone Number [facility] [place] [address] * Smear Review Report (02/10/2017 10:37 PM EDT) Smear Review Report [id number] ? Location: 1WST; 0118; B The signing [...] ORDERABLE S [facility] [place] [address] * Scan, Peripheral Blood (02/10/2017 10:37 PM EDT) Plat estimate Decreased [facility] RBC Morphology Normal [facility] Blood specimen (specimen) 02/10/2017 10:37 PM EDT 02/10/2017 10:42 PM EDT Narrative Resulting Agency Comment Spec In Lab Hemal Goodrich Jr., MD HEMATOLOGY ORDERABLE S Performing Organization Address City/[facility]/ZIP Co de Phone Number [facility] [place] [address] * Differential, Automated (02/10/2017 10:37 PM EDT) [facility] Neutrophil % 61.0 % [facility] Neutrophil Absolute 5.10 1.70 - 6.10 x10(3)/[facility] Lymph % 30.1 % [facility] Lymphocytes Abs 2.5 0.9 - 3.2 x10(3)/[facility] Monocyte % 6.5 % [facility] Monocyte Abs 0.5 0.3 - 0.9 x10(3)/[facility] Eos % 1.9 % [facility] Eosinophils Abs 0.2 0.0 - 0.4 x10(3)/[facility] Basophil % 0.4 % [facility] Baso Absolute 0.0 0.0 - 0.1 x10(3)/[facility] Immature Gran % 0.10 % [facility] Comment: Immature granulocytes(IG's)percentage and absolute count will include metamyelocytes, myelocytes, and promyelocytes. Blood smears from CBCs yielding IG's will be scanned manually for concordance. If this scan disagrees with the automated IG or if promyelocytes are noted, a manual differential will be performed. Immature Gran Absolute 0.01 0.00 - 0.04 x10(3)/[facility] Blood specimen (specimen) 02/10/2017 10:37 PM EDT 02/10/2017 10:42 PM EDT Narrative Resulting Agency Comment Spec In Lab Hemal Goodrich Jr., MD HEMATOLOGY ORDERABLE S [facility] [place] [address] * (ABNORMAL) Hemogram (02/10/2017 10:37 PM EDT) White Blood Cell 8.4 4.0 - 9.5 x10(3)/mc L [facility] Red Blood Cell 4.16 4.00 - 5.21 x10(6)/[facility] LABORATORY Hemoglobin 12.9 11.7 - 15.5 [...] LABORATORY Platelet 17(Critic al) 145 - 357 x10(3)/[facility] LABORATORY RDW Standard Deviation 35.6(L) 37.0 - 46.0 fL [facility] RDW coefficient of variation 11.5 11.5 - 14.1 % [facility] Mean Platelet Volume 13.4(H) 7.6 - 12.9 fL [facility] NRBC% auto 0.0 % [facility] NRBC Absolute 0.000 0.000 - 0.000 x10(3)/ L [facility] Blood specimen (specimen) 02/10/2017 10:37 PM EDT 02/10/2017 10:42 PM EDT Narrative Resulting Agency Comment Spec In Lab Hemal Goodrich Jr., MD HEMATOLOGY ORDERABLE S Performing Organization Address City/[facility]/ZIP Co de Phone Number [facility] [place] [address] * (ABNORMAL) MARK (02/10/2017 10:37 PM EDT) [facility] MARK Titer to follow(A) Neg [facility] Blood specimen (specimen) 02/10/2017 10:37 PM EDT 02/11/2017 7:10 AM EDT Narrative Resulting Agency Comment Spec In Lab Hemal Goodrich Jr., MD LAB SEND OUT ORDERAB LES Performing Organization Address [facility] Co de Phone Number [facility] [place] [place] [address] * (ABNORMAL) Comprehensive metabolic panel (non-fasting) (02/10/2017 10:37 PM EDT) [facility] Glucose 114 65 - 199 mg/dL [facility] Comment:Diabetes: >=200 mg/d L plus symptoms Blood Urea Nitrogen 6(L) 8 - 18 mg/dL [facility] Creatinine 0.80 0.70 - 1.20 mg/dL [facility] Comment: Please note that the pediatric reference intervals supplied above were not validated at [facility]. Results from pediatric patients should be interpreted [...] LABORATORY Est Glomerular Filtration Rate >60 >=60 [facility] Comment: This estimated GFR (eGFR) [...] the following links into your internet browser. [email or web address] Blood specimen (specimen) 02/10/2017 10:37 PM EDT 02/10/2017 10:42 PM EDT Narrative Resulting Agency Comment Spec In Lab Hemal Goodrich Jr., MD CHEMISTRY ORDERABLES [facility] [place] [address] * Folate, serum (02/10/2017 10:37 PM EDT) Folate >20.0 4.8 - 24.2 ng/mL [facility] Blood specimen (specimen) 02/10/2017 10:37 PM EDT 02/10/2017 10:42 PM EDT Narrative Resulting Agency Comment Spec In Lab Hemal Goodrich Jr., MD CHEMISTRY ORDERABLES Performing Organization Address [facility] Co de Phone Number [facility] [place] [address] * Vitamin B12 (02/10/2017 10:37 PM EDT) Vitamin B12 549 207 - 974 pg/mL [facility] Blood specimen (specimen) 02/10/2017 10:37 PM EDT 02/10/2017 10:42 PM EDT Narrative Resulting Agency Comment Spec In Lab Hemal Goodrich Jr., MD CHEMISTRY ORDERABLES Performing Organization Address [facility] Co de Phone Number [facility] [place] [address] * HIV Screen, 4th Generation (02/10/2017 10:37 PM EDT) Pathologist [facility] HIV Ab/Ag Screen Negative Negative [facility] Jr., MD CHEMISTRY ORDERABLES Performing Organization Address [facility] Co de Phone Number [facility] [place] [address] * Peripheral Smear Review (02/10/2017 10:37 PM EDT) Peripheral Smear Review See Comment [facility] Comment: When completed by the Pathologist, report [id number] will display under Hematopathology Reports. Blood specimen (specimen) 02/10/2017 10:37 PM EDT 02/10/2017 10:42 PM EDT Narrative Resulting Agency Comment Spec In Lab Hemal Goodrich Jr., MD HEMATOLOGY ORDERABLE S [facility] [place] [address] * Beta HCG, quantitative (02/10/2017 10:37 PM [...] - 56,451 ?17 weeks ? 8,175 - 92,868 ?18 weeks ? 8,099 - 58,176 Blood specimen (specimen) 02/10/2017 10:37 PM EDT 02/10/2017 10:42 PM EDT Narrative Resulting Agency Comment Spec In Lab Hemal Goodrich Jr., MD CHEMISTRY ORDERABLES [facility] [place] [address] * D-Dimer, Quantitative (02/10/2017 10:37 PM EDT) [...] MD HEMATOLOGY ORDERABLE S Performing Organization Address [facility] Co de Phone Number [facility] [place] [address] * Thrombin time (02/10/2017 10:37 PM EDT) [...] MD HEMATOLOGY ORDERABLE S Performing Organization Address [facility] Co de Phone Number [facility] [place] [address] * Fibrinogen (02/10/2017 10:37 PM EDT) Fibrinogen 289 180 - 510 mg/dL [facility] Comment: A fibrinogen level >100 mg/dL is adequate for hemostasis in most patients without underlying bleeding disorders. Blood specimen (specimen) 02/10/2017 10:37 PM EDT 02/10/2017 10:42 PM EDT Narrative Resulting Agency Comment Spec In Lab Hemal Goodrich Jr., MD HEMATOLOGY ORDERABLE S Performing Organization Address City/[facility] Co de Phone Number [facility] [place] [address] * APTT (02/10/2017 10:37 PM EDT) Partial Thromboplastin Time 30 25 - 35 sec [facility] Comment: The recommended therapeutic range for full dose, unfractionated heparin at [facility] is 80 ? 114 seconds. The use of the anti-Xa (heparin) level rather than the PTT is recommended for monitoring anticoagulation intensity in critically ill patients receiving unfractionated heparin by continuous IV infusion. Blood specimen (specimen) 02/10/2017 10:37 PM EDT 02/10/2017 10:42 PM EDT Narrative Resulting Agency Comment Spec In Lab Hemal Goodrich Jr., MD HEMATOLOGY ORDERABLE S Performing Organization Address [facility] de Phone Number [facility] [place] [address] * Prothrombin Time (02/10/2017 10:37 PM EDT) [...] MD HEMATOLOGY ORDERABLE S Performing Organization Address [facility] Co de Phone Number [facility] [place] [address] documented in this encounter Visit Diagnoses Diagnosis [...] require approval by P&T Chair or On-Call Compensation Analyst. *Idiopathic thrombocytopenic purpura * Restarted 02/11/2017 10:16 [...] require approval by P&T Chair or On-Call Compensation Analyst. *Idiopathic thrombocytopenic purpura * Rate/Dose Change 02/12/2017 [...] require approval by P&T Chair or On-Call Compensation Analyst. *Idiopathic thrombocytopenic purpura * New Bag 02/11/2017 [...] require approval by P&T Chair or On-Call Compensation Analyst. *Idiopathic thrombocytopenic purpura * Rate/Dose Change 02/12/2017 [...] require approval by P&T Chair or On-Call Compensation Analyst. *Idiopathic thrombocytopenic purpura * 1839 (New Bag [...] require approval by P&T Chair or On-Call Compensation Analyst. *Idiopathic thrombocytopenic purpura * 213 (New Bag - Provider: Naida Patterson RN - Comment: Lot number [id number] 11/15/2019Second check by Renetta Mariee)221 (Rate/Dose Change [...] require approval by P&T Chair or On-Call Compensation Analyst. *Idiopathic thrombocytopenic purpura * 2312 (New Bag [...] require approval by P&T Chair or On-Call Compensation Analyst. *Idiopathic thrombocytopenic purpura * 2314 (New Bag - Provider: Naida Patterson RN - Comment: Lot number: [id number].: 07/09/2019Second check by: Libertad Valenzuela RN )2331 [...] require approval by P&T Chair or On-Call Compensation Analyst. *Idiopathic thrombocytopenic purpura * And immune globulin [...] require approval by P&T Chair or On-Call Compensation Analyst. *Idiopathic thrombocytopenic purpura * Group 2: ondansetron [...] Routine documented in this encounter Care Teams Accounting Machine Operator Relationship Specialty Start Date End Date Presley Santillan MD [address] [place] [address] PCP - General Internal Medicine 02/10/17 documented as of this encounter
--- OUTSIDE RECORDS SUMMARY | 2024-05-16 17:28 | XMS_ITS | Encounter Summary ---
Author Organization [facility] Address [address] [place] [address] Care Team Providers Care Sales Branch Manager Name Role Phone Jessica Mohamud KOTA Primary Care Provider [phone] Encounter Details Date Type Department Care Team (Late st Contact Info) Description 12/13/2019 Lab Requisition [facility] Pathology & Laboratory Medicine - [facility] [address] [place] [address] Outr Resulting Lab, Provider Social History Tobacco [...] Unknown 12/13/2019 12:30 EDT 12/13/2019 15:44 EDT us Provider Outr Resulting Lab MICROBIOLOGY - GENER AL ORDERABLES Final Result [facility] [address] [place] [address] * COVID-19 TESTING (12/13/2019 12:30 EDT) COVID-19 rt-PCR Result Negative Negative 12/13/2019 20:42 EDT [facility] Comment: This test has [...] history, and epidemiological information. Performed on the [employer] Fusion instrument Performing Lab [place] [facility] Lab 12/13/2019 20:42 EDT [facility] Swab ENTIRE NASOPHARYNX / Unknown 12/13/2019 12:30 EDT 12/13/2019 15:44 EDT us Provider Outr Resulting Lab MICROBIOLOGY - GENER AL ORDERABLES Final Result [facility] [address] [place] [address] documented in this encounter Visit Diagnoses Not on filedocumented in this encounter Care Teams Sales Branch Manager Relationship Specialty Start Date End Date Jessica Mohamud, LITIGATION SECRETARY [address] [place] [address] PCP - General 01/19/19 documented as of this encounter
--- OUTSIDE RECORDS SUMMARY | 2024-05-16 17:28 | XMS_ITS | Encounter Summary ---
Author Organization [facility] Address [facility] [place] [address] Care Team Providers Care Travel Nurse Name Role Phone Presley Santillan MD Primary Care Provider [phone] Encounter Details Date Type Department Care Team (Late st Contact Info) Description 02/10/2017 Telephone Hematology [place] [phone] Presley Choudhary MD [facility] [address] HEMATOLOGY/[place] [address] Social History Tobacco Use Types Packs/Day Years Used Date Smoking Tobacco: Never Assessed Sex and Gender Information Value Date Recorded Sex Assigned at Not on file Gender Identity Not on file Sexual Orientation Not on file documented as of this encounter Miscellaneous Notes * Telephone Encounter - Presley Choudhary MD - 02/10/2017 8:18 AM EDT Called by a Dr. Santillan from [facility] who saw Daniela Gardner [...] unspecified documented in this encounter Care Teams Travel Nurse Relationship Specialty Start Date End Date Presley Santillan MD [address] [place] [address] PCP - General Internal Medicine 02/10/17 documented as of this encounter
--- OUTSIDE RECORDS SUMMARY | 2024-05-16 17:28 | XMS_ITS | Encounter Summary ---
Author Organization [facility] [place] [address] Care Team Providers Care Wire Repairer Name Role Phone Presley Santillan MD Primary Care Provider [phone] Encounter Details Date Type Department Care Team (Late st Contact Info) Description 03/04/2017 Telephone Hematology/Oncology at [address] [phone] [place] Social History Tobacco [...] on filedocumented in this encounter Care Teams Wire Repairer Relationship Specialty Start Date End Date Presley Santillan MD [address] [place] [address] PCP - General Internal Medicine 02/10/17 documented as of this encounter
--- OUTSIDE RECORDS SUMMARY | 2024-05-16 17:28 | XMS_ITS | Referral Summary ---
Author Organization [facility] Address [address] [place] [address] Care Team Providers Care Software Test Analyst Name Role Phone Jessica Mohamud KOTA Primary Care Provider [phone] Immunizations Name Administration Dates Next Due Influenza Vaccine =>1yo Split IM 05/19/2013 Social History Tobacco Use Types Packs/Day Years Used Date Smoking Tobacco: Never Assessed Interpersonal Safety Answer Date Record ed Physically Hurt Never 01/29/2020 Verbally Threaten Not on file 01/29/2020 Comments Unknown Sex and Gender Information Value Date Recorded Sex Assigned at Not on file Legal Sex Female 18:42 EST Gender Identity Not on file Sexual Orientation Not on file Plan of Treatment Not on file Insurance [place]ID [place] Care Teams Software Test Analyst Relationship Specialty Start Date End Date Jessica Mohamud APRN [address] [place] [address] PCP - General 01/19/19
--- OUTSIDE RECORDS SUMMARY | 2024-05-16 17:28 | XMS_ITS | Encounter Summary ---
Author Organization [facility] Address [facility] [place] [address] Care Team Providers Care Customs And Border Protection Officer Name Role Phone Presley Santillan MD Primary Care Provider Encounter Details Date Type Department Care Team (Latest Contact Info) Description 03/03/2017 8:36 AM EDT - 03/03/2017 11:59 PM EDT Hospital Encounter [place]ematology [place] [phone] Acute ITP; Alternating constipation and diarrhea; Abdominal [...] Stimulating Hormone 7.90(H) 0.27 - 4.20 mlU/ML [facility] Blood specimen (specimen) 03/03/2017 8:59 AM EDT 03/03/2017 9:10 AM EDT Narrative Resulting Agency Comment Spec In Lab Litzy Barron BASE FILLER CHEMISTRY ORDERAB LES [facility] [place] [address] * CRP, acute inflammation (03/03/2017 8:59 AM EDT) C-Reactive Protein 1.8 <=4.9 mg/L [facility] Blood specimen (specimen) 03/03/2017 8:59 AM EDT 03/03/2017 9:10 AM EDT Narrative Resulting Agency Comment Spec In Lab Litzy Henrylamar BASE FILLER CHEMISTRY ORDERAB LES Performing Organization Address City/[facility]/ZIP Co de Phone Number [facility] [place] [address] * (ABNORMAL) Sedimentation rate (03/03/2017 8:59 AM EDT) [facility] Sedimentation Rate Automated 38(H) 0 - 20 mm/hr [facility] Blood specimen (specimen) 03/03/2017 8:59 AM EDT 03/03/2017 9:10 AM EDT Narrative Resulting Agency Comment Spec In Lab Litzy Henrylamar BASE FILLER HEMATOLOGY ORDERA BLES Performing Organization Address City/[facility]/ZIP Co de Phone Number [facility] [place] [address] * Differential, Automated (03/03/2017 8:59 AM EDT) [facility] Neutrophil % 51.7 % [facility] Neutrophil Absolute 3.16 1.70 - 6.10 x10(3)/[facility] Lymph % 35.0 % [facility] Lymphocytes Abs 2.1 0.9 - 3.2 x10(3)/[facility] Monocyte % 6.7 % [facility] Monocyte Abs 0.4 0.3 - 0.9 x10(3)/[facility] Eos % 5.7 % [facility] Eosinophils Abs 0.4 0.0 - 0.4 x10(3)/[facility] Basophil % 0.7 % [facility] Baso Absolute 0.0 0.0 - 0.1 x10(3)/[facility] Immature Gran % 0.20 % [facility] Comment: Immature granulocytes(IG's)percentage and absolute count will include metamyelocytes, myelocytes, and promyelocytes. Blood smears from CBCs yielding IG's will be scanned manually for concordance. If this scan disagrees with the automated IG or if promyelocytes are noted, a manual differential will be performed. Immature Gran Absolute 0.01 0.00 - 0.04 x10(3)/[facility] Blood specimen (specimen) 03/03/2017 8:59 AM EDT 03/03/2017 9:10 AM EDT Narrative Resulting Agency Comment Spec In Lab Yovani Fajardo MD HEMATOLOGY ORDERAB LES [facility] [place] [address] * (ABNORMAL) Hemogram (03/03/2017 8:59 AM EDT) White Blood Cell 6.1 4.0 - 9.5 x10(3)/ L [facility] Red Blood Cell 3.87(L) 4.00 - 5.21 x10(6)/mc L [facility] Hemoglobin 12.2 11.7 - 15.5 gm/dL [facility] Hematocrit 35.3(L) 35.7 - 45.8 % [facility] Mean Cell Volume 91.2 82.6 - 94.4 fL [facility] Mean Cell Hemoglobin 31.5 27.1 - 32.0 pg [facility] Mean Cell Hemoglobin Concentration 34.6 31.7 - 35.0 gm/dL [facility] Platelet 80(L) 145 - 357 x10(3)/mc L [facility] RDW Standard Deviation 43.8 37.0 - 46.0 fL [facility] RDW coefficient of variation 13.3 11.5 - 14.1 % [facility] Mean Platelet Volume 10.9 7.6 - 12.9 fL [facility] NRBC% auto 0.0 % [facility] NRBC Absolute 0.000 0.000 - 0.000 x10(3)/mc L [facility] Blood specimen (specimen) 03/03/2017 8:59 AM EDT 03/03/2017 9:10 AM EDT Narrative Resulting Agency Comment Spec In Lab Yovani Fajardo MD HEMATOLOGY ORDERAB LES [facility] [place] [address] * Comprehensive metabolic panel (non-fasting) (03/03/2017 8:59 AM EDT) Glucose 95 65 - 199 mg/dL [facility] Comment:Diabetes: >=200 mg/d L plus symptoms Blood Urea Nitrogen 12 8 - 18 mg/dL [facility] Creatinine 0.95 0.70 - 1.20 mg/dL [facility] Comment: Please note that the pediatric reference intervals supplied above were not validated at [facility]. Results from pediatric patients should be interpreted in conjunction to the patient's age, height and muscle mass. Sodium 142 135 - 145 mmol/L [facility] Potassium 3.9 3.5 - 5.0 mmol/L [facility] Comment: Please note: ??Patients with WBC >100,000 may have falsely elevated Potassium levels. ??For accurate Potassium quantification in these patients send serum separator tube (gold top) for subsequent determinations. ??Contact the Clinical Chemistry Laboratory if there are any questions. Chloride 103 98 - 107 mmol/L [facility] Carbon Dioxide 24 22 - 31 mmol/L [facility] Anion Gap 15 5 - 15 mmol/L [facility] Calcium 9.3 8.5 - 10.5 mg/dL [facility] Protein, Total 7.4 6.1 - 8.0 gm/dL [facility] Albumin 4.4 3.2 - 5.2 gm/dL [facility] Aspartate Aminotransferase 24 0 - 30 unit/L [facility] Alanine Aminotransferase 29 0 - 30 unit/L [facility] Alkaline Phosphatase 49 40 - 104 unit/L [facility] Bilirubin, Total 0.5 0.2 - 1.3 mg/dL [facility] Est Glomerular Filtration Rate >60 >=60 [facility] Comment: This estimated GFR [...] the following links into your internet browser. [email or web address] Blood specimen (specimen) 03/03/2017 8:59 AM EDT 03/03/2017 9:10 AM EDT Narrative Resulting Agency Comment Spec In Lab Yovani Fajardo MD CHEMISTRY ORDERABL ES [facility] [place] [address] * (ABNORMAL) Platelet count (03/03/2017 8:59 AM EDT) Platelet 80(L) 145 - 357 x10(3)/mc L [facility] Immature Plt % 5.6 0.0 - 7.4 % [facility] Comment: Limitation of the Immature Platelet Fraction (IPF)-May be less reliable when the platelet count is less than 89i280/uL due to statistical imprecision. The IPF value [...] in a decreased state of production. References: [employer] The Clinical Value of the Immature Platelet Fraction (IPF) in Cell Recovery Document Number 10-1143 11/2010 [employer] The Role of the Immature Platelet Fraction (IPF) in the Differential Diagnosis of Thrombocytopenia, Document [id number] V05 P011/09 Blood specimen (specimen) 03/03/2017 8:59 AM EDT 03/03/2017 9:10 AM EDT Narrative Resulting Agency Comment Spec In Lab Yovani Fajardo MD HEMATOLOGY ORDERAB LES Performing Organization Address City/State/[facility] Co de Phone Number [facility] [place] [address] documented in this encounter Visit Diagnoses Diagnosis Acute ITP Immune thrombocytopenic purpura Alternating constipation and diarrhea Other symptoms involving digestive system Abdominal pain, unspecified location documented in this encounter Care Teams Customs And Border Protection Officer Relationship Specialty Start Date End Date Presley Santillan MD [address] [place] [address] PCP - General Internal Medicine 02/10/17 documented as of this encounter
--- OUTSIDE RECORDS SUMMARY | 2024-05-16 17:28 | XMS_ITS | Encounter Summary ---
Author Organization [facility] Address [address] [place] [address] Care Team Providers Care Sand Mill Operator Facing Sand Name Role Phone Jessica Mohamud KOTA Primary Care Provider [phone] Encounter Details Date Type Department Care Team (Late st Contact Info) Description 12/12/2019 Lab Requisition [facility] Pathology & Laboratory Medicine - [facility] [address] [place] [address] Outr Resulting Lab, Provider Social History Tobacco [...] Unknown 12/12/2019 10:55 EDT 12/12/2019 17:26 EDT us Provider Outr Resulting Lab MICROBIOLOGY - GENER AL ORDERABLES Final Result [facility] [address] [place] [address] * COVID-19 TESTING (12/12/2019 10:55 EDT) COVID-19 rt-PCR Result Negative Negative 12/13/2019 1:02 EDT [facility] Comment: This test has not [...] history, and epidemiological information. Performed on the [employer] Fusion instrument Performing Lab [place] [facility] 12/13/2019 1:02 EDT [facility] Swab ENTIRE NASOPHARYNX / Unknown 12/12/2019 10:55 EDT 12/12/2019 17:26 EDT us Provider Outr Resulting Lab MICROBIOLOGY - GENER AL ORDERABLES Final Result [facility] [address] [place] [address] documented in this encounter Visit Diagnoses Not on filedocumented in this encounter Care Teams Sand Mill Operator Facing Sand Relationship Specialty Start Date End Date Jessica Mohamud, KOTA [address] [place] [address] PCP - General 01/19/19 documented as of this encounter
--- OUTSIDE RECORDS SUMMARY | 2024-05-16 17:28 | XMS_ITS | Encounter Summary ---
Author Organization [facility] Address [address] [place] [address] Care Team Providers Care Retail Furniture Sales Name Role Phone Jessica Mohamud KOTA Primary Care Provider [phone] Encounter Details Date Type Department Care Team (Late st Contact Info) Description 12/20/2020 Lab Requisition [facility] Pathology & Laboratory Medicine - [facility] [address] [place] [address] Seema Gonzáles MD [facility] [place], [place] [id number] Encounter for other general examination Social History [...] - No specific pathologic features. 12/25/2020 18:37 [facility] Attestation There was significant resident/fellow involvement in the diagnostic evaluation of this case. By the signature below, the attending physician certifies that they have personally conducted a gross and/or microscopic examination of the described specimens and rendered or confirmed the above diagnosis. 12/25/2020 18:37 [facility] at 1837 Clinical History Abnormal uterine bleeding 12/25/2020 18:37 [facility] Gross Description A. [...] cut surfaces showing an unremarkable pinpoint lumen. Pork Cutlet Maker sections are submitted as follows: BLOCK TELLEZ A1- fimbria, longitudinally bisected and one cross section A2- opposite fimbria, longitudinally bisected and one cross section A3- anterior cervix A4- anterior endomyometrium A5- posterior cervix A6-A7- posterior endomyometrium ZAHRA KEARNS(ASCP) 12/21/2020 9:59 12/25/2020 18:37 [facility] Resident/Heber w: Ankur Sin MD 12/25/2020 18:37 [facility] Performing Lab [facility] 12/25/2020 18:37 [facility] Scanned Images 12/25/2020 18:37 [facility] Tissue SPECIMEN FROM UTERUS / Unknown 12/20/2020 9:32 EDT 12/20/2020 16:19 EDT us Seema Gonzáles MD PATHOLOGY ORDERABLES Final Res ult [facility] [address] [place] [address] documented in this encounter Visit Diagnoses Diagnosis Encounter for other general examination documented in this encounter Care Teams Retail Furniture Sales Relationship Specialty Start Date End Date Jessica Mohamud APRN [address] [place] [address] PCP - General 01/19/19 documented as of this encounter
--- OUTSIDE RECORDS SUMMARY | 2024-05-16 17:28 | XMS_ITS | Encounter Summary ---
Author Organization [facility] Address [facility] [place] [address] Care Team Providers Care Bus Company Manager Name Role Phone Presley Santillan MD Primary Care Provider Encounter Details Date Type Department Care Team (Latest Contact Info) Description 02/17/2017 9:50 AM EDT - 02/17/2017 11:59 PM EDT Hospital Encounter [place] [address] Thrombocytopenia Discharge Disposition: Home Social History Tobacco [...] * CK (02/17/2017 10:05 AM EDT) Pathologist [facility] Creatine Kinase 26 0 - 160 unit/L [facility] Blood specimen (specimen) Venous Draw / Unknown 02/17/2017 10:05 AM EDT 02/17/2017 10:16 AM EDT Narrative Resulting Agency Comment Spec In Lab Yovani Fajardo MD CHEMISTRY ORDERABL ES [facility] [place] [place] [address] * (ABNORMAL) Differential, Automated (02/17/2017 10:05 AM EDT) Pathologist [facility] Neutrophil % 42.1 % [facility] Neutrophil Absolute 3.70 1.70 - 6.10 x10(3)/mc L [facility] Lymph % 44.3 % [facility] Lymphocytes Abs 3.9(H) 0.9 - 3.2 x10(3)/mc L [facility] Monocyte % 9.3 % [facility] Monocyte Abs 0.8 0.3 - 0.9 x10(3)/mc L [facility] Eos % 3.4 % [facility] Eosinophils Abs 0.3 0.0 - 0.4 x10(3)/[facility] Basophil % 0.1 % [facility] Baso Absolute 0.0 0.0 - 0.1 x10(3)/[facility] Immature Gran % 0.80 % [facility] Comment: Immature granulocytes(IG's)percentage and absolute count will include metamyelocytes, myelocytes, and promyelocytes. Blood smears from CBCs yielding IG's will be scanned manually for concordance. If this scan disagrees with the automated IG or if promyelocytes are noted, a manual differential will be performed. Immature Gran Absolute 0.07(H) 0.00 - 0.04 x10(3)/[facility] Blood specimen (specimen) 02/17/2017 10:05 AM EDT 02/17/2017 10:09 AM EDT Narrative Resulting Agency Comment Spec In Lab Yovani Fajardo MD HEMATOLOGY ORDERAB LES [facility] [place] [address] * (ABNORMAL) Hemogram (02/17/2017 10:05 AM EDT) White Blood Cell 8.8 4.0 - 9.5 x10(3)/[facility] Red Blood Cell 3.99(L) 4.00 - 5.21 x10(6)/[facility] Hemoglobin 12.6 11.7 - 15.5 gm/dL [facility] Hematocrit 34.2(L) 35.7 - 45.8 % [facility] Mean Cell Volume 85.7 82.6 - 94.4 fL [facility] Mean Cell Hemoglobin 31.6 27.1 - 32.0 pg [facility] Mean Cell Hemoglobin Concentration 36.8(H) 31.7 - 35.0 gm/dL [facility] Platelet 217 145 - 357 x10(3)/mc L [facility] RDW Standard Deviation 35.8(L) 37.0 - 46.0 fL [facility] RDW coefficient of variation 11.7 11.5 - 14.1 % [facility] Mean Platelet Volume 9.1 7.6 - 12.9 fL [facility] NRBC% auto 0.0 % [facility] NRBC Absolute 0.000 0.000 - 0.000 x10(3)/mc L [facility] Blood specimen (specimen) 02/17/2017 10:05 AM EDT 02/17/2017 10:09 AM EDT Narrative Resulting Agency Comment Spec In Lab Yovani Fajardo MD HEMATOLOGY ORDERAB LES [facility] [place] [address] * Comprehensive metabolic panel (non-fasting) (02/17/2017 10:05 AM EDT) Glucose 89 65 - 199 mg/dL [facility] Comment:Diabetes: >=200 mg/d L plus symptoms Blood Urea Nitrogen 10 8 - 18 mg/dL [facility] Creatinine 0.93 0.70 - 1.20 mg/dL [facility] Comment: Please note that the pediatric reference intervals supplied above were not validated at [facility]. Results from pediatric patients should be interpreted in conjunction to the patient's age, height and muscle mass. Sodium 138 135 - 145 mmol/L [facility] Potassium 3.8 3.5 - 5.0 mmol/L [facility] Comment: Please note: ??Patients with WBC >100,000 may have falsely elevated Potassium levels. ??For accurate Potassium quantification in these patients send serum separator tube (gold top) for subsequent determinations. ??Contact the Clinical Chemistry Laboratory if there are any questions. Chloride 101 98 - 107 mmol/L [facility] Carbon Dioxide 25 22 - 31 mmol/L [facility] Anion Gap 12 5 - 15 mmol/L [facility] Calcium 8.7 8.5 - 10.5 mg/dL [facility] Protein, Total 7.3 6.1 - 8.0 gm/dL [facility] Albumin 3.8 3.2 - 5.2 gm/dL [facility] Aspartate Aminotransferase 12 0 - 30 unit/L [facility] Alanine Aminotransferase 8 0 - 30 unit/L [facility] Alkaline Phosphatase 41 40 - 104 unit/L [facility] Bilirubin, Total 0.9 0.2 - 1.3 mg/dL [facility] Est Glomerular Filtration Rate >60 >=60 [facility] Comment: This estimated GFR [...] the following links into your internet browser. [email or web address] Blood specimen (specimen) 02/17/2017 10:05 AM EDT 02/17/2017 10:09 AM EDT Narrative Resulting Agency Comment Spec In Lab Yovani Fajardo MD CHEMISTRY ORDERABL ES [facility] [place] [address] documented in this encounter Visit Diagnoses Diagnosis Thrombocytopenia Thrombocytopenia, unspecified documented in this encounter Care Teams Bus Company Manager Relationship Specialty Start Date End Date Presley Santillan MD [address] [place] [address] PCP - General Internal Medicine 02/10/17 documented as of this encounter
--- OUTSIDE RECORDS SUMMARY | 2024-05-16 17:28 | XMS_ITS | Encounter Summary ---
Author Organization [facility] Address [address] [place] [address] Care Team Providers Care Stamp Maker Name Role Phone Jessica Mohamud KOTA Primary Care Provider [phone] Encounter Details Date Type Department Care Team (Late st Contact Info) Description 12/13/2019 Lab Requisition [facility] Pathology & Laboratory Medicine - [address] [phone] Outr Resulting Lab, Provider Social History Tobacco [...] Salmonella PCR Negative Negative 12/14/2019 13:28 EDT [facility] Shigella/Enteroin vasive E. coli Negative Negative 12/14/2019 13:28 EDT [facility] HN LAB CAMPYLOBACTER PCR Negative Negative 12/14/2019 13:28 EDT [facility] Shiga Toxin PCR Negative Negative 0 13:28 EDT [facility] Feces SPECIMEN FROM RECTUM / Unknown 12/12/2019 20:15 EDT 12/13/2019 17:13 EDT us Provider Outr Resulting Lab MICROBIOLOGY - GENER AL ORDERABLES Final Result [facility] [address] [place] [address] documented in this encounter Visit Diagnoses Not on filedocumented in this encounter Care Teams Stamp Maker Relationship Specialty Start Date End Date Jessica Mohamud APRN [address] [place] [address] PCP - General 01/19/19 documented as of this encounter
--- OUTSIDE RECORDS SUMMARY | 2024-05-16 17:28 | XMS_ITS | Encounter Summary ---
Author Organization [facility] Address [address] [place] [address] Care Team Providers Care Web Content Executive Name Role Phone Mir Medina MD Primary Care Provider [phone] Encounter Details Date Type Department Care Team (Late st Contact Info) Description 01/15/2019 Results Only [facility] [phone] Wil Bhatt MD [address] [place] [address] Social History Tobacco Use Types [...] ? YANETH DELUNA ? Accession #: ? [id number] ? : ? 1990 (Age: 28) ??F ? Collect Date: ? 01/15/2019 ? Location: ? [facility] ? Receive Date: ? 01/17/2019 ? Provider: WIL BHATT MD Copy to: ROSALINDA SALMON EDDY CURRENT INSPECTOR ? Final Pathologic Diagnosis: APPENDIX, APPENDECTOMY: - [...] adjacent to the proximal stapled margin, two customer engagement representative cross sections and one half of the longitudinally bisected distal tip are submitted in 1. The remainder of the specimen is submitted as 2-6. Dr. Winters 01/18/2019 2:56 PM End of Report [facility] 01/15/2019 17:2 8 EDT 01/17/2019 17:28 EDT us Wil Bhatt MD PATHOLOGY ORDERABLES Final Re sult [facility] [address] [place] [address] documented in this encounter Visit Diagnoses Not on filedocumented in this encounter Care Teams Web Content Executive Relationship Specialty Start Date End Date Mir Medina MD PCP - General 09/07/15 01/18/19 documented as of this encounter
--- OUTSIDE RECORDS SUMMARY | 2024-05-16 17:28 | XMS_ITS | Encounter Summary ---
Author Organization [facility] Address [facility] [place] [address] Care Team Providers Care Geosciences Professor Name Role Phone Presley Santillan MD Primary Care Provider [phone] Encounter Details Date Type Department Care Team (Latest Contact Info) Description 03/02/2017 8:45 AM EDT - 03/02/2017 11:59 PM EDT Hospital Encounter Laboratory [facility] [place] [phone] Discharge Disposition: Home Social History Tobacco Use [...] on filedocumented in this encounter Care Teams Geosciences Professor Relationship Specialty Start Date End Date Presley Santillan MD [address] [place] [address] PCP - General Internal Medicine 02/10/17 documented as of this encounter
--- OUTSIDE RECORDS SUMMARY | 2024-05-16 17:28 | XMS_ITS | Encounter Summary ---
Author Organization [facility] [place] [address] Care Team Providers Care Instructional Design Manager Name Role Phone Presley Santillan MD Primary Care Provider Reason for Visit * Reason Comments Chemotherapy Cycle 1 Day 1 * Treatment/Therapy Plan Authorization (Routine) - Closed Specialty Diagnoses / Procedures Referred By Contac t Referred To Contact Hematology and Oncology Diagnoses Acute ITP Immune thrombocytopenic purpura Procedures TC RITUXIMAB, 100MG, INJECTION (RITUXAN) Yovani Fajardo MD [facility] [address] [place] [address] [facility] [address] [place] [address] Referral ID Status Reason Start Date Expiration Date Visits Re quested Visits Authorized [id number] Closed 03/06/2017 03/06/2018 52 52 Encounter Details Date Type Department Care Team (Late st Contact Info) Description 03/11/2017 10:30 AM EDT Infusion Hematology Oncology at [address] [address] Acute ITP Social History Tobacco Use Types [...] gravity. Bp 114/71 HR 106 AAntonio Dao DRAFTER ASSISTANT in to see pt. States feeling better [...] mg documented in this encounter Care Teams Instructional Design Manager Relationship Specialty Start Date End Date Presley Santillan MD [address] [place] [address] PCP - General Internal Medicine 02/10/17 documented as of this encounter
--- OUTSIDE RECORDS SUMMARY | 2024-05-16 17:28 | XMS_ITS | Encounter Summary ---
Author Organization [facility] Address [address] [place] [address] Care Team Providers Care Psychological Operations Specialist Name Role Phone Mir Medina MD Primary Care Provider [phone] Encounter Details Date Type Department Care Team (Late st Contact Info) Description 08/28/2017 Orders Only [facility] Adult Primary Care - [place] [address] [place] [address] Roberta Patricio MD [address] [place] [address] Social History Tobacco Use Types [...] TSH, External 2.47 0.47 - 4.68 mlU/L [facility] Comment:Please see the scann ed report in PRISM for further interpretation. Blood specimen (specimen) 08/28/2017 7:50 EST us Roberta Patricio MD CHEMISTRY & BLOOD GAS ORDERA BLES Final Result Performing Organization Address City/[facility]/ZIP Co de Phone Number [facility] * (ABNORMAL) LIPID PROFILE (INCLUDES CHOLESTEROL, TRIGLYCERIDES, HDL, LDL) (08/28/2017 7:50 EST) Cholesterol, External 182 59 - 199 mg/dL [facility] Triglycerides, External 94 0 - 149 mg/dL [facility] HDL, External 38(A) 40 - 60 mg/dL [facility] LDL, External 125.2 0 - 129 mg/dL [facility] Chol/HDL Ratio, External 4.78(A) 0 - 3.9 [facility] Fasting?, External Yes [facility] Comment:Please see the scann ed report in PRISM for further interpretation. Blood specimen (specimen) 08/28/2017 7:50 EST us Roberta Patricio MD CHEMISTRY & BLOOD GAS ORDERA BLES Final Result Performing Organization Address [facility]/ZIP Co de Phone Number [facility] documented in this encounter Visit Diagnoses Not on filedocumented in this encounter Care Teams Psychological Operations Specialist Relationship Specialty Start Date End Date Mir Medina MD PCP - General 09/07/15 01/18/19 documented as of this encounter
--- OUTSIDE RECORDS SUMMARY | 2024-05-16 17:28 | XMS_ITS | Encounter Summary ---
Author Organization [facility] [place] [address] Care Team Providers Care Airborne Sensor Specialist Name Role Phone Presley Santillan MD Primary Care Provider [phone] Encounter Details Date Type Department Care Team (Late st Contact Info) Description 02/10/2017 Telephone [place] [phone] Presley Choudhary MD [facility] [address] HEMATOLOGY/[place] [address] Social History Tobacco Use Types Packs/Day Years [...] her now. She agreed to come in [facility] for a direct admission to hematology. [...] on filedocumented in this encounter Care Teams Airborne Sensor Specialist Relationship Specialty Start Date End Date Presley Santillan MD [address] [place] [address] PCP - General Internal Medicine 02/10/17 documented as of this encounter
--- OUTSIDE RECORDS SUMMARY | 2024-05-16 17:28 | XMS_ITS | Encounter Summary ---
Author Organization [facility] [place] [address] Care Team Providers Care Rn Or Lpn Name Role Phone Presley Santillan MD Primary Care Provider Reason for Referral * Diagnostic Test (Routine) - Closed Specialty Diagnoses / Procedures Referred By Daryl sargent Referred To Contact Radiology Diagnoses Alternating constipation and diarrhea Abdominal pain, unspecified location Procedures MRI Enterography wwo Contrast Litzy Barron APRN [facility] [place] [address] [place] [address] Referral ID Status Reason Start Date Expiration Date V isits Requested Visits Authorized [id number] Closed Specialty Service Requested 04/06/2017 06/04/2017 1 1 Reason for Visit * Consultation (Routine) - Closed Specialty Diagnoses / Procedures Referred By Daryl sargent Referred To Contact Gastroenterology Diagnoses Colitis; suspected non-infectious colitis. Presley Santillan MD [address] [place] [address] [facility] [address] [place] [address] Referral ID Status Reason Start Date Expiration Date V isits Requested Visits Authorized [id number] Closed Consult, Test & Treat [facility] 02/10/2017 02/10/2018 1 1 Encounter Details Date Type Department Care Team (Late st Contact Info) Description 02/17/2017 1:00 PM EDT Office Visit [place] [address] Litzy Barron, MALL MANAGER [facility] [place] [address] Abdominal pain, unspecified location; Alternating constipation and [...] this encounter Progress Notes * Litzy Barron, MALL MANAGER - 02/17/2017 1:00 PM EDT Department of [...] abdomen and pelvis- IV contrast only ( [facility] 02/05/17) Nonspecific colitis involving descending and sigmoid colon. Likely this is either infectious or inflammatory bowel disease. ? CT abdomen and pelvis (08/12/15) - taken from Dr. Goldsmith note Mild thickening of the wall of the descending and proximal sigmoid colon. This may be due to decompressed bowel versus nonspecific colitis. ? ENDOSCOPY ([facility], Dr. Matute): EGD 09/04/15: normal duodenum... The [...] bowel disease. Preliminary report signed by: Pj Goodrcih at 04/20/2017 9:02 AM I have personally [...] 04/20/2017 9:36 AM 9:36 AM Litzy Barron MALL MANAGER IMG MRI ORDERABLE S * (ABNORMAL) TSH (03/03/2017 8:59 AM EDT) Thyroid Stimulating Hormone 7.90(H) 0.27 - 4.20 mlU/ML [facility] Blood specimen (specimen) 03/03/2017 8:59 AM EDT 03/03/2017 9:10 AM EDT Narrative Resulting Agency Comment Spec In Lab Litzy Barron MALL MANAGER CHEMISTRY ORDERAB LES [facility] [place] [address] * CRP, acute inflammation (03/03/2017 8:59 AM EDT) C-Reactive Protein 1.8 <=4.9 mg/L [facility] Blood specimen (specimen) 03/03/2017 8:59 AM EDT 03/03/2017 9:10 AM EDT Narrative Resulting Agency Comment Spec In Lab Litzy Barron MALL MANAGER CHEMISTRY ORDERAB LES Performing Organization Address [facility]/ZIP Co de Phone Number [facility] [place] [address] * (ABNORMAL) Sedimentation rate (03/03/2017 8:59 AM EDT) Sedimentation Rate Automated 38(H) 0 - 20 mm/hr [facility] Blood specimen (specimen) 03/03/2017 8:59 AM EDT 03/03/2017 9:10 AM EDT Narrative Resulting Agency Comment Spec In Lab Litzy Henrynahomisharifa MALL MANAGER HEMATOLOGY ORDERA BLES Performing Organization Address [facility] Co de Phone Number [facility] [place] [address] * Calprotectin (03/02/2017 4:30 PM EDT) Calprotectin <15.6 <=50.0 (Normal) mcg/gm [facility] Comment: Test Performed by: [facility] [address] [address] Stool specimen (specimen) 03/02/2017 4:30 PM EDT 03/03/2017 9:19 AM EDT Narrative Resulting Agency Comment Spec In Lab Litzy Henrynahomisharifa MALL MANAGER BODY FLUIDS AND S TOOLS ORDERABLES Performing Organization Address [facility] Co de Phone Number [facility] [place] [address] * C. Difficile Screen (03/02/2017 4:30 PM EDT) C Diff Interp Negative Negative [facility] Comment: C. diff ??Negative Clostridium difficile is not present in the specimen. If patient is having diarrhea suspected to be from an infectious cause, then Contact Precautions are still required. Stool specimen (specimen) 03/02/2017 4:30 PM EDT 03/03/2017 8:57 AM EDT Narrative Resulting Agency Comment Spec In Lab MinalQuinten Barron MALL MANAGER MICROBIOLOGY - [place] [address] documented in this encounter Visit Diagnoses Diagnosis Abdominal pain, unspecified location Alternating constipation and diarrhea Other symptoms involving digestive system Gastroesophageal reflux disease, esophagitis presence not specified Alternating constipation and diarrhea Other symptoms involving digestive system Abdominal pain, unspecified location documented in this encounter Care Teams Rn Or Lpn Relationship Specialty Start Date End Date Presley Santillan MD [address] [place] [address] PCP - General Internal Medicine 02/10/17 documented as of this encounter
--- OUTSIDE RECORDS SUMMARY | 2024-05-16 17:28 | XMS_ITS | Encounter Summary ---
Author Organization [facility] Address [address] [place] [address] Care Team Providers Care Senior Sourcing Manager Name Role Phone Unavailable Primary Care Provider Unavailabl e Encounter Details Date Type Department Care Team (Late st Contact Info) Description 12/09/2011 11:35 EDT - 12/09/2011 11:36 EDT Hospital Encounter [address] [address] Halina Segura, LIZBETH [address] [place] [phone] Discharge Disposition: Home or Self Care [...]
--- OUTSIDE RECORDS SUMMARY | 2024-05-16 17:28 | XMS_ITS | Encounter Summary ---
Author Organization [facility] Address [address] [place] [address] Care Team Providers Care Media Consultant Outside Sales Name Role Phone Jessica Mohamud KOTA Primary Care Provider [phone] Encounter Details Date Type Department Care Team (Late st Contact Info) Description 08/29/2021 Lab Requisition [facility] Pathology & Laboratory Medicine - [address] [id number] Outr Resulting Lab, Provider Social History Tobacco [...] 08/28/2021 17:1 5 EST 08/29/2021 19:26 EST us Provider Outr Resulting Lab MICROBIOLOGY - GENER AL ORDERABLES Final Result [facility] [address] [place] [address] * COVID-19 TESTING (08/28/2021 17:15 EST) COVID-19 rt-PCR Result Negative Negative 08/30/2021 12:19 EST [facility] Comment: [...] was performed using the ruddy SARS-CoV-2 assay ([employer] on the Ruddy 6800 System Performing Lab Ruddy 6800 [facility] Lab 08/30/2021 12:19 EST [facility] Swab 08/28/2021 17:1 5 EST 08/29/2021 19:26 EST us Provider Outr Resulting Lab MICROBIOLOGY - GENER AL ORDERABLES Final Result [facility] [address] [place] [address] documented in this encounter Visit Diagnoses Not on filedocumented in this encounter Care Teams Media Consultant Outside Sales Relationship Specialty Start Date End Date Jessica Mohamud APRN [address] [place] [address] PCP - General 01/19/19 documented as of this encounter
--- OUTSIDE RECORDS SUMMARY | 2024-05-16 17:28 | XMS_ITS | Clinical Summary ---
Author Organization [facility] Address [address] [place] [address] Care Team Providers Care Ladle Patcher Name Role Phone Jessica Mohamud KOTA Primary Care Provider [phone] Immunizations Name Administration Dates Next Due Influenza [...] - 19+ 3-dose series) 11/10 COVID-19 Vaccine (2023- season) 2024 Insurance MEDICAID [facility] [place] Care Teams Ladle Patcher Relationship Specialty Start Date End Date Jessica Mohamud, KOTA [address] [place] [address] PCP - General 01/19/19
--- OUTSIDE RECORDS SUMMARY | 2024-05-16 17:28 | XMS_ITS | Encounter Summary ---
Author Organization [facility] Address [facility] [place] [address] Care Team Providers Care Dental Appliance Repairer Name Role Phone Presley Santillan MD Primary Care Provider [phone] Encounter Details Date Type Department Care Team (Latest Contact Info) Description 03/02/2017 8:42 AM EDT - 03/02/2017 8:44 AM EDT Hospital Encounter Laboratory [facility] [place] [phone] Alternating constipation and diarrhea; Abdominal pain, unspecified [...] Date/Time Associated Diagnosis Comments STOOL CULTURE SCREEN ([facility]/CGP/APD/NLH) Routine 03/02/2017 4:30 PM EDT Alternating [...] 1 EIA Negative for Shiga Toxin 2 [facility] Stool specimen (specimen) 03/02/2017 4:30 PM EDT 03/03/2017 8:57 AM EDT Narrative Resulting Agency Comment Spec In Lab Litzy Barron APRN MICROBIOLOGY - NERAL ORDERABLES [facility] [place] [address] * Campylobacter Antigen (03/02/2017 4:30 PM EDT) Campylobacter Ag Immunoassay Negative for Campylobacter Antigen [facility] Stool specimen (specimen) 03/02/2017 4:30 PM EDT 03/03/2017 8:57 AM EDT Narrative Resulting Agency Comment Spec In Lab Litzy Barron RENTAL AGENT MICROBIOLOGY - GE NERAL ORDERABLES [facility] [place] [address] * Stool culture (03/02/2017 4:30 PM EDT) Stool Culture No enteric pathogens isolated [facility] Stool specimen (specimen) 03/02/2017 4:30 PM EDT 03/03/2017 8:57 AM EDT Narrative Resulting Agency Comment Spec In Lab Litzy Barron RENTAL AGENT MICROBIOLOGY - GE NERAL ORDERABLES Performing Organization Address [facility] Co de Phone Number [facility] [place] [address] * C. Difficile Screen (03/02/2017 4:30 PM EDT) C Diff Interp Negative Negative [facility] Comment: C. diff ??Negative Clostridium difficile is not present in the specimen. If patient is having diarrhea suspected to be from an infectious cause, then Contact Precautions are still required. Stool specimen (specimen) 03/02/2017 4:30 PM EDT 03/03/2017 8:57 AM EDT Narrative Resulting Agency Comment Spec In Lab Litzy Barron RENTAL AGENT MICROBIOLOGY - GE NERAL ORDERABLES Performing Organization Address City/[facility]/ZIP Co de Phone Number [facility] [place] [address] * Calprotectin (03/02/2017 4:30 PM EDT) Calprotectin <15.6 <=50.0 (Normal) [facility]/gm [facility] Comment: Test Performed by: [address] [address] Stool specimen (specimen) 03/02/2017 4:30 PM EDT 03/03/2017 9:19 AM EDT Narrative Resulting Agency Comment Spec In Lab Litzy Terrazasv RENTAL AGENT BODY FLUIDS AND S TOOLS ORDERABLES Performing Organization Address City/State/[facility] Co de Phone Number [facility] [place] [address] documented in this encounter Visit Diagnoses Diagnosis Alternating constipation and diarrhea Other symptoms involving digestive system Abdominal pain, unspecified location documented in this encounter Care Teams Dental Appliance Repairer Relationship Specialty Start Date End Date Presley Santillan MD [address] [place] [address] PCP - General Internal Medicine 02/10/17 documented as of this encounter
--- OUTSIDE RECORDS SUMMARY | 2024-05-16 17:28 | XMS_ITS | Encounter Summary ---
Author Organization [facility] Address [address] [place] [address] Care Team Providers Care Catalyst Recovery Operator Name Role Phone Halina Segura LACE ROLLER Primary Care Provider + Encounter Details Date Type Department Care Team (Late st Contact Info) Description 09/04/2015 Results Only [facility] [phone] Chance Steele, DO [address] [facility] [address] [place], [place] [id number] Social History Tobacco Use Types Packs/Day Years [...] ? YANETH DESOUZA ? Accession #: ? [id number] ? : ? 1990 (Age: 24) ??F [...] The specimens are submitted entirely in K1. 09/05/2015 11:19 AM End of Report [facility] 09/04/2015 9:59 EST 09/05/2015 9:59 EST us Chance Steele DO PATHOLOGY ORDERABLES Fi nal Result Performing Organization Address City/State/[facility] Co de Phone Number [facility] [address] [place] [address] documented in this encounter Visit Diagnoses Not on filedocumented in this encounter Care Teams Catalyst Recovery Operator Relationship Specialty Start Date End Date Halina Segura NP [address] [place] [phone] PCP - General 12/11/11 09/06/15 documented as of this encounter
--- OUTSIDE RECORDS SUMMARY | 2024-05-16 17:28 | XMS_ITS | Encounter Summary ---
Author Organization [facility] Address [facility] [place] [address] Care Team Providers Care Slubber Tender Name Role Phone Presley Santillan MD Primary Care Provider [phone] Reason for Visit * Reason Comments Advice Only * Consultation (Urgent) - Specialty Diagnoses / Procedures Referred By Contac t Referred To Contact Hematology and Oncology Diagnoses Chronic ITP (idiopathic thrombocytopenia) ITP Procedures ITP Presley Santillan MD [address] [place] [address] [facility] [address] [place] [address] Referral ID Status Reason Start Date Expiration Date V isits Requested Visits Authorized [id number] Consult, Test & Treat 02/10/2017 02/10/2018 1 1 Encounter Details Date Type Department Care Team (Late st Contact Info) Description 02/17/2017 11:00 AM EDT Office Visit H[place]ology [place] [address] Yovani Fajardo MD [facility] [address] [place] [address] Acute ITP Social History Tobacco [...] normal. She was then admitted to [facility] for urgent treatment of suspected ITP. 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 Ms Gardner in interested in this. We will plan on giving Dexamethasone 40mg daily x 4 days every 21 days for 6 (total) cycles. RTC on 03/03 for labs, toxicity check, and consideration of cycle 2, or else stop and observe for relapse if toxicity is ongoing. Yovani Fajardo MD Pager: [phone] 02/17/2017 documented in this encounter Plan of Treatment Not on file documented as of this encounter Visit Diagnoses Diagnosis Acute ITP Immune thrombocytopenic purpura documented in this encounter Care Teams Slubber Tender Relationship Specialty Start Date End Date Presley Santillan MD [address] [place] [address] PCP - General Internal Medicine 02/10/17 documented as of this encounter
--- OUTSIDE RECORDS SUMMARY | 2024-05-16 17:28 | XMS_ITS | Encounter Summary ---
Author Organization Counts Include [facility] Address [facility] [place] [address] Care Team Providers Care Lastex Operator Name Role Phone Presley Santillan MD Primary Care Provider Encounter Details Date Type Department Care Team (Late st Contact Info) Description 03/11/2017 10:00 AM EDT Office Visit Hematology/Oncology at [address] [phone] Mercedez Goldberg MD [facility] [address] [place] [address] Acute ITP Social History Tobacco Use Types [...] were normal. She was then admitted to [facility] for urgent treatment of suspected ITP. 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 [...] hepatitis B reactivation and case reports of INSTRUMENT TESTER infections. Patient should use control, is not [...] with a toxicity check next week with RABIES INSPECTOR. ?? Continue weekly CBC at [facility] with RN tracking ?? Appointment with [facility] on week #4 of rituximab MERCEDEZ GOLDBERG MD Pager: [phone] 03/11/2017 * Anamaria Lamas RN - 03/11/2017 [...] purpura documented in this encounter Care Teams Lastex Operator Relationship Specialty Start Date End Date Presley Santillan MD [address] [place] [address] PCP - General Internal Medicine 02/10/17 documented as of this encounter
--- OUTSIDE RECORDS SUMMARY | 2024-05-16 17:28 | XMS_ITS | Encounter Summary ---
Author Organization [facility] Address [address] [place] [address] Care Team Providers Care Governor Assembler Hydraulic Name Role Phone Jessica Mohamud KOTA Primary Care Provider [phone] Encounter Details Date Type Department Care Team (Late st Contact Info) Description 07/24/2020 Lab Requisition [facility] Pathology & Laboratory Medicine - [address] [phone] Outr Resulting Lab, Provider Social History Tobacco [...] Unknown 07/23/2020 16:00 EST 07/24/2020 15:40 EST us Provider Outr Resulting Lab MICROBIOLOGY - GENER AL ORDERABLES Final Result [facility] [address] [place] [address] * COVID-19 TESTING (07/23/2020 16:00 EST) COVID-19 rt-PCR Result Negative Negative 07/25/2020 12:25 EST [facility] Comment: This test has [...] performed using the ruddy SARS-CoV-2 assay ([employer] on the Ruddy 6800 System Performing Lab Ruddy 6800 [facility] Lab 07/25/2020 12:25 EST [facility] Swab 07/23/2020 16:0 0 EST 07/24/2020 15:40 EST us Provider Outr Resulting Lab MICROBIOLOGY - GENER AL ORDERABLES Final Result [facility] [address] [place] [address] documented in this encounter Visit Diagnoses Not on filedocumented in this encounter Care Teams Governor Assembler Hydraulic Relationship Specialty Start Date End Date Jessica Mohamud APRN [address] [place] [address] PCP - General 01/19/19 documented as of this encounter
--- OUTSIDE RECORDS SUMMARY | 2024-05-16 17:28 | XMS_ITS | Encounter Summary ---
Author Organization [facility] Address [address] [place] [address] Care Team Providers Care Intelligence Analyst Name Role Phone Jessica Mohamud KOTA Primary Care Provider [phone] Encounter Details Date Type Department Care Team (Late st Contact Info) Description 07/19/2020 Lab Requisition [facility] Pathology & Laboratory Medicine - [address] [id number] Outr Resulting Lab, Provider Social History Tobacco [...] in accordance with CLIA regulations, College of [employer] (CAP) guidelines (Sep 15, 2019), and FDA guidance (Aug 27, 2019). This test is only for use under the Food and Drug Administration's Emergency Use Authorization. Swab ENTIRE NASOPHARYNX / Unknown 07/19/2020 11:06 EST 07/19/2020 15:58 EST us Provider Outr Resulting Lab MICROBIOLOGY - GENER AL ORDERABLES Final Result [facility] [place], [place] * COVID-19 TESTING (07/19/2020 11:06 EST) COVID-19 rt-PCR Result NEGATIVE Negative 07/20/2020 22:11 EST [facility] Comment: 2019-novel Coronavirus (2019-nCoV) not [...] in accordance with CLIA regulations, College of [employer] Pathologists (CAP) guidelines (Sep 15, 2019), and FDA guidance (Aug 27, 2019). This test is only for use under the Food and Drug Administration's Emergency Use Authorization. Performing Lab [facility] 07/20/2020 22:11 EST [facility] Swab 07/19/2020 11:0 6 EST 07/19/2020 15:58 EST us Provider Outr Resulting Lab MICROBIOLOGY - GENER AL ORDERABLES Final Result [facility] [address] [place] [address] [facility] [place], [place] documented in this encounter Visit Diagnoses Not on filedocumented in this encounter Care Teams Intelligence Analyst Relationship Specialty Start Date End Date Jessica Mohamud APRN [address] [place] [address] PCP - General 01/19/19 documented as of this encounter
--- OUTSIDE RECORDS SUMMARY | 2024-05-16 17:28 | XMS_ITS | Encounter Summary ---
Author Organization [facility] Address [address] [place] [address] Care Team Providers Care Dean Of Chapel Name Role Phone Mir Medina MD Primary Care Provider [phone] Encounter Details Date Type Department Care Team (Late st Contact Info) Description 12/05/2015 Results Only [facility] [phone] Odin Casillas NP [address] [place] [address] Social History Tobacco Use Types [...] ? YANETH DESOUZA ? Accession #: ? [id number] : ? 1990 (Age: 25) ??F ?Collect Date: ? 12/05/2015 Location: ? [facility] ? Receive Date: ? 12/07/2015 Provider: ?ODIN CASILLAS MACHINE OPERATOR REPLANTER Copy to: ? Specimen/Source: ?Pap Test, Cervix/Endocervix, [...] Report Date: ??12/18/2015 13:24 End of Report [facility] 12/05/2015 12/07/2015 us Odin Casillas MACHINE OPERATOR REPLANTER PATHOLOGY ORDERABLES Final Res ult [facility] [address] [place] [address] documented in this encounter Visit Diagnoses Not on filedocumented in this encounter Care Teams Dean Of Chapel Relationship Specialty Start Date End Date Mir Medina MD PCP - General 09/07/15 01/18/19 documented as of this encounter
--- OUTSIDE RECORDS SUMMARY | 2024-05-16 17:28 | XMS_ITS | Encounter Summary ---
Author Organization [facility] Address [facility] [place] [address] Care Team Providers Care Hatchery Employee Name Role Phone Presley Santillan MD Primary Care Provider [phone] Encounter Details Date Type Department Care Team (Late st Contact Info) Description 03/03/2017 9:30 AM EDT Office Visit Hematology [place] [address] [facility] [address] HEMATOLOGY [place] [address] Acute ITP Social History Tobacco Use Types [...] were normal. 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 [...] up Rituximab and transfer of care to [facility] for Rituximab treatment. The addition of Rituximab will also increase the chance of intermediate accountant remission. Today, we also some of Ms Gardner's fears about her ITP leading to a more aggressive malignancy, such as leukemia. I reassured her that ITP is not related to acute leukemias. Plan ?? Pulse Dex 40mg x 4 days, starting today. ?? Check labs and meet provider at [facility] next week ?? Hopefully schedule Rituximab infusion on day of appt in [facility] Dennys Fajardo MD Pager: [phone] 03/03/2017 documented in this encounter Miscellaneous Notes * Addendum Note - Dennys Fajardo MD - 03/06/2017 8:29 AM EDTAddended by: DENNYS FAJARDO on: 03/06/2017 08:29 AM Modules accepted: Orders documented in this encounter Plan of Treatment Not on file documented as of this encounter Results * Comprehensive metabolic panel (non-fasting) (03/03/2017 8:59 AM EDT) [facility] Glucose 95 65 - 199 mg/dL [facility] Comment:Diabetes: >=200 mg/d L plus symptoms Blood Urea Nitrogen 12 8 - 18 mg/dL [facility] Creatinine 0.95 0.70 - 1.20 mg/dL [facility] Comment: Please note that the pediatric reference intervals supplied above were not validated at [facility]. Results from pediatric patients should be interpreted in conjunction to the patient's age, height and muscle mass. Sodium 142 135 - 145 mmol/L [facility] Potassium 3.9 3.5 - 5.0 mmol/L [facility] Comment: Please note: ??Patients with WBC >100,000 may have falsely elevated Potassium levels. ??For accurate Potassium quantification in these patients send serum separator tube (gold top) for subsequent determinations. ??Contact the Clinical Chemistry Laboratory if there are any questions. Chloride 103 98 - 107 mmol/L [facility] Carbon Dioxide 24 22 - 31 mmol/L [facility] Anion Gap 15 5 - 15 mmol/L [facility] Calcium 9.3 8.5 - 10.5 mg/dL [facility] Protein, Total 7.4 6.1 - 8.0 gm/dL [facility] Albumin 4.4 3.2 - 5.2 gm/dL [facility] Aspartate Aminotransferase 24 0 - 30 unit/L [facility] Alanine Aminotransferase 29 0 - 30 unit/L [facility] Alkaline Phosphatase 49 40 - 104 unit/L [facility] Bilirubin, Total 0.5 0.2 - 1.3 mg/dL [facility] Est Glomerular Filtration Rate >60 >=60 [facility] Comment: This estimated GFR (eGFR) [...] the following links into your internet browser. [email or web address] Blood specimen (specimen) 03/03/2017 8:59 AM EDT 03/03/2017 9:10 AM EDT Narrative Resulting Agency Comment Spec In Lab Dennys Fajardo MD CHEMISTRY ORDERABL ES [facility] [place] [id number] * (ABNORMAL) Platelet count (03/03/2017 8:59 AM EDT) Platelet 80(L) 145 - 357 x10(3)/mc L [facility] Immature Plt % 5.6 0.0 - 7.4 % [facility] Comment: Limitation of the Immature Platelet Fraction (IPF)-May be less reliable when the platelet count is less than 43i915/uL due to statistical imprecision. The IPF value [...] in a decreased state of production. References: [employer] The Clinical Value of the Immature Platelet Fraction (IPF) in Cell Recovery Document Number 10-1143 11/2010 [employer] The Role of the Immature Platelet Fraction (IPF) in the Differential Diagnosis of Thrombocytopenia, Document MKT-10-1209 V011/07/13 P011/09 Blood specimen (specimen) 03/03/2017 8:59 AM EDT 03/03/2017 9:10 AM EDT Narrative Resulting Agency Comment Spec In Lab Dennys Fajardo MD HEMATOLOGY ORDERAB LES [facility] [place] [address] documented in this encounter Visit Diagnoses Diagnosis Acute ITP Immune thrombocytopenic purpura documented in this encounter Care Teams Hatchery Employee Relationship Specialty Start Date End Date Presley Santillan MD [address] [place] [address] PCP - General Internal Medicine 02/10/17 documented as of this encounter
--- OUTSIDE RECORDS SUMMARY | 2024-05-16 17:28 | XMS_ITS | Encounter Summary ---
Author Organization [facility] Address [address] [place] [address] Care Team Providers Care Risk Control Manager Name Role Phone Jessica Mohamud RN BSN Primary Care Provider [phone] Encounter Details Date Type Department Care Team (Late st Contact Info) Description 05/02/2022 Lab Requisition [facility] Pathology & Laboratory Medicine - [facility] [address] [place] [address] Jessica Mohamud APRN 26 [facility] [address] [place] [phone] Encounter for other general examination Social History [...] explore management options, if applicable. 05/05/2022 9:46 [facility] Final Diagnosis A. SKIN OF CALF, RIGHT, PUNCH BIOPSY: - Dermatofibroma. - Dermatofibroma present at peripheral tissue edge. B. SKIN OF THIGH, LEFT UPPER, PUNCH BIOPSY: - Dermatofibroma. - Dermatofibroma present at peripheral tissue edge. 05/05/2022 9:46 [facility] Attestation By the signature below, the attending physician certifies that they have 1) personally conducted a gross and/or microscopic examination of the described specimen(s), and/or personally interpreted the results of laboratory testing of the described specimen(s), and 2) personally rendered or confirmed the above diagnosis. 05/05/2022 9:46 [facility] at 0946 Microscopic Description There is irregular epidermal hyperplasia with basal hyperpigmentation . Within the dermis, there is a spindle cell proliferation accompanied by histiocytes. The spindle cells have plump nuclei that vary to a mild degree in size and shape. The proliferation is associated with thick bundles of collagen (collagen trapping) and areas of sclerosis. 05/05/2022 9:46 [facility] Clinical History A. Skin lesion RT calf x 5-6 yrs, changing, growing; B. Skin lesion left upper thigh x 1 yr, changing 05/05/2022 9:46 [facility] Gross Description A. [...] B1. ROBERT BELL 05/02/2022 11:11 05/05/2022 9:46 [facility] Performing Lab [facility] 05/05/2022 9:46 [facility] Scanned Images 05/05/2022 9:46 [facility] Tissue TISSUE SPECIMEN FROM SKIN / Unknown 05/01/2022 8:15 EDT 05/02/2022 9:42 EDT Tissue specimen (specimen) SPECIMEN FROM SKIN / Unknown 05/01/2022 8:15 EDT 05/02/2022 9:42 EDT us Jessica Mohamud APRN PATHOLOGY ORDERABLES Shannon diaz Result [facility] [address] [place] [address] documented in this encounter Visit Diagnoses Diagnosis Encounter for other general examination documented in this encounter Care Teams Risk Control Manager Relationship Specialty Start Date End Date Jessica Mohamud, KOTA [address] [place] [address] PCP - General 01/19/19 documented as of this encounter
--- OUTSIDE RECORDS SUMMARY | 2024-05-16 17:28 | XMS_ITS | Encounter Summary ---
Author Organization [facility] Address [address] [place] [address] Care Team Providers Care Wire Coating Operator Metal Name Role Phone Jessica Mohamud KOTA Primary Care Provider [phone] Encounter Details Date Type Department Care Team (Late st Contact Info) Description 12/26/2023 Lab Requisition [facility] Pathology & Laboratory Medicine - [address] [id number] Outr Resulting Lab, Provider Social History Tobacco [...] 20.3 See Note mIU/mL 12/28/2023 8:52 EDT [facility] Blood VENOUS BLOOD / Unknown 12/25/2023 12:10 EDT 12/26/2023 21:11 EDT Narrative [facility] - 12/28/2023 8:52 EDT NOTE: Female [facility]SH Reference Ranges (Menstruating): PHYSIOLOGICAL STATUS ? REFERENCE RANGE ? Follicular (-12 to -4 days): ?? 2.5 - 10.2 mIU/mL Midcycle (-3 to +2 days): ?3.4 - 33.4 mIU/mL Luteal (+4 to +12 days): ? 1.5 - 9.1 mIU/mL Postmenopausal: ?23.0 - 116.3 mIU/mL Reference Ranges for pediatric non-menstruating female patients have not been established. us Provider Outr Resulting Lab CHEMISTRY & BLOOD GA S ORDERABLES Final Result [facility] [address] [place] [address] * ESTRADIOL, ADULTS (12/25/2023 12:10 EDT) Estradiol 109 See Note pg/mL 12/26/2023 21:55 EDT [facility] Comment: NOTE: FEMALE REFERENCE RANGES: [...] Unknown 12/25/2023 12:10 EDT 12/26/2023 21:11 EDT us Provider Outr Resulting Lab CHEMISTRY & BLOOD GA S ORDERABLES Final Result [facility] [address] [place] [address] documented in this encounter Visit Diagnoses Not on filedocumented in this encounter Care Teams Wire Coating Operator Metal Relationship Specialty Start Date End Date Jessica Mohamud APRN [address] [place] [address] PCP - General 01/19/19 documented as of this encounter
--- OUTSIDE RECORDS SUMMARY | 2024-05-16 17:28 | XMS_ITS | Encounter Summary ---
Author Organization Health system Address [address] [place] [address] Care Team Providers Care Hostess Party Sales Representative Name Role Phone Halina Segura MARKETING AND PUBLIC RELATIONS MANAGER Primary Care Provider + Encounter Details Date Type Department Care Team (Latest Contact Info) Description 09/04/2015 9:39 EST - 09/04/2015 23:59 EST Hospital Encounter [address] [address] Unknown, Provider, MD Discharge Disposition: Home or [...] Code Departure Means Destination Home or Self Mcfp documented in this encounter Plan of Treatment Not on file documented as of this encounter Visit Diagnoses Not on filedocumented in this encounter Care Teams Hostess Party Sales Representative Relationship Specialty Start Date End Date Halina Segura NP [address] [place] [phone] PCP - General 12/11/11 09/06/15 documented as of this encounter
--- OUTSIDE RECORDS SUMMARY | 2024-05-16 17:28 | XMS_ITS | Encounter Summary ---
Author Organization [facility] Address [address] [place] [address] Care Team Providers Care Rock Mason Name Role Phone Mir Mednia MD Primary Care Provider [phone] Encounter Details Date Type Department Care Team (Late st Contact Info) Description 09/02/2017 Orders Only [facility] Adult Primary Care - [place] [address] [place] [address] Roberta Patricio MD [address] [place] [address] Social History Tobacco Use Types [...] on filedocumented in this encounter Care Teams Rock Mason Relationship Specialty Start Date End Date Mir Medina MD PCP - General 09/07/15 01/18/19 documented as of this encounter
--- OUTSIDE RECORDS SUMMARY | 2024-05-16 17:28 | XMS_ITS | Encounter Summary ---
Author Organization [facility] Address [address] [place] [address] Care Team Providers Care Classroom Technology Coach Name Role Phone Jessica Mohamud KOTA Primary Care Provider [phone] Encounter Details Date Type Department Care Team (Late st Contact Info) Description 11/06/2020 Lab Requisition [facility] Pathology & Laboratory Medicine - [address] [phone] Outr Resulting Lab, Provider Social History Tobacco [...] Unknown 11/06/2020 9:40 EDT 11/06/2020 21:04 EDT us Provider Outr Resulting Lab MICROBIOLOGY - GENER AL ORDERABLES Final Result [facility] [address] [place] [address] * COVID-19 TESTING (11/06/2020 9:40 EDT) COVID-19 rt-PCR Result Negative Negative 11/07/2020 11:23 EDT [facility] Comment: This test has [...] performed using the ruddy SARS-CoV-2 assay ([facility] on the Ruddy 6800 System Performing Lab Ruddy 6800 [facility] 11/07/2020 11:23 EDT [facility] Swab 11/06/2020 9:40 EDT 11/06/2020 21:04 EDT us Provider Outr Resulting Lab MICROBIOLOGY - GENER AL ORDERABLES Final Result [facility] [address] [place] [address] documented in this encounter Visit Diagnoses Not on filedocumented in this encounter Care Teams Classroom Technology Coach Relationship Specialty Start Date End Date Jessica Mohamud APRN [address] [place] [address] PCP - General 01/19/19 documented as of this encounter
--- OUTSIDE RECORDS SUMMARY | 2024-05-16 17:28 | XMS_ITS | Encounter Summary ---
Author Organization [facility] [place] [address] Care Team Providers Care Petroleum Supply Specialist Name Role Phone Presley Santillan MD Primary Care Provider [phone] Encounter Details Date Type Department Care Team (Late st Contact Info) Description 03/05/2017 Telephone [place] [address] Litzy Barron, BLOW MOLD OPERATOR [facility] [place] [address] Social History Tobacco Use Types Packs/Day Years [...] on filedocumented in this encounter Care Teams Petroleum Supply Specialist Relationship Specialty Start Date End Date Presley Santillan MD [address] [place] [address] PCP - General Internal Medicine 02/10/17 documented as of this encounter
--- OUTSIDE RECORDS SUMMARY | 2024-05-16 17:29 | XMS_ITS | Encounter Summary ---
Author Organization [facility] Address [address] [place] [address] Care Team Providers Care Dinkey Engine Firer/Fireman Name Role Phone Unavailable Primary Care Provider Unavailabl e Encounter Details Date Type Department Care Team (Late st Contact Info) Description 11/15/2009 Results Only [facility] Laboratory Services - [facility] ([facility]) [address] [place] [address] Brown Moy ARNP [address] [place] [address] Social History Tobacco Use Types Packs/Day Years [...] ? YANETH DESOUZA ? Accession #: ? [id number] ? : ? 1990 (Age: 19) ??F [...] of Report ? [facility] 11/15/2009 11/19/2009 us Brown TORRES PATHOLOGY ORDERABLES Shannon diaz Result [facility] [address] [place] [address] documented in this encounter Visit Diagnoses Not on filedocumented in this encounter
--- OUTSIDE RECORDS SUMMARY | 2024-05-16 17:29 | XMS_ITS | Encounter Summary ---
Author Organization [facility] Address [address] [place] [address] Care Team Providers Care Supervisor Of Communications Name Role Phone Unavailable Primary Care Provider Unavailabl e Encounter Details Date Type Department Care Team (Late st Contact Info) Description 12/09/2011 Results Only [facility] - [facility] ([facility]) [address] [place] [address] Halina García, LIZBETH [address] [place] [address] Social History Tobacco Use Types [...] ? YANETH DESOUZA ? Accession #: ? [id number] : ? 1990 (Age: 21) ??F ?Collect Date: ? 12/09/2011 Location: ? [facility] ? Receive Date: ? 12/10/2011 Provider: ?HALINA GARCÍA TIE BUYER Copy to: ? Specimen/Source: ?Pap Test, Cervix/Endocervix, ThinPrep Imaging System with manual evaluation Last Menstrual Period: ? 10/08/11 Hormonal/Contracep tive Status: ? Yes: Implanon-Implant ? SPECIMEN ADEQUACY ? Satisfactory for Evaluation - transformation zone component present GENERAL CATEGORIZATION ? Negative for Intraepithelial Lesion or Malignancy ? Document reviewed and electronically signed by: ? Elijah Johnson, DONATO(ASCP) ? Report Date: ??12/11/2011 13:05 End of Report [facility] 12/09/2011 12/10/2011 us Halina García TIE BUYER PATHOLOGY ORDERABLES Fin al Result Performing Organization Address City/State/[facility] Co de Phone Number [facility] MILLER [address] [place] [address] documented in this encounter Visit Diagnoses Not on filedocumented in this encounter
--- OUTSIDE RECORDS SUMMARY | 2024-05-16 17:29 | XMS_ITS | Encounter Summary ---
Author Organization [facility] Address [address] [place] [address] Care Team Providers Care Cytogenetics Laboratory Manager Name Role Phone Unavailable Primary Care Provider Unavailabl e Encounter Details Date Type Department Care Team (Late st Contact Info) Description 12/03/2007 Results Only [facility] [place] [address] [place] [address] Sally Garcia ARNP [address] [place] [address] Social History Tobacco Use Types [...] ? YANETH DESOUZA ? Accession #: ? [id number] : ? 1990 (Age: 17) ??F ?Collect Date: ? 12/03/2007 Location: ? [facility] ? Receive Date: ? 12/08/2007 Provider: ?SALLY TORRES Copy to: ? Specimen/Source: ?ThinPrep Pap Test, Cervix/Endocervix, processed on EnerTrac ThinPrep Imaging System, with manual evaluation Last Menstrual Period: ? 11/12/07 Hormonal/Contracep tive Status: ? Oral contraceptives ? SPECIMEN ADEQUACY ? Satisfactory for Evaluation - transformation zone component present GENERAL CATEGORIZATION ? Negative for Intraepithelial Lesion or Malignancy ? Document reviewed and electronically signed by: ? Karen Yen, SCT(ASCP) ? Report Date: ??12/09/2007 12:07 End of Report [facility]LELR 12/03/2007 12/08/2007 us Sally TORRES PATHOLOGY ORDERABLES Shannon diaz Result [facility] [address] [place] [address] documented in this encounter Visit Diagnoses Not on filedocumented in this encounter
[2024-05-16 18:17] LABS: Abs Immature Grans 0.06 10^3/uL (0.0-0.06); Absolute Basophil Count 0.02 10^3/uL (0.0-0.2); Absolute Monocyte Count 0.03 10^3/uL (0.1-0.8); Basophils % 0.2 %; HCT 40.4 % (36.0-46.0); HGB 13.9 g/dL (11.2-15.7); Immature Grans % 0.5 %; Lymphocytes % 5.2 %; MCH 31.2 pg (27.0-33.0); MCHC 34.4 % (32.0-36.0); MCV 91 fL (80-95); MPV 9.3 fL (8.0-11.0); Monocytes % 0.3 %; Neutrophils % 93.8 %; Platelet Count 263 10^3/uL (130-400); RBC 4.45 10^6/uL (3.93-5.22); RDW 11.3 % (11.7-14.6); RDW-SD 38.2 fL; WBC 11.65 10^3/uL (4.4-10.8)
[2024-05-16] MEDS: Droperidol 5 MG/2 ML VIAL IVP (18:21)
[2024-05-16] MEDS: Normal Saline 1,000 ML 1000 ML IV (18:22)
[2024-05-16 18:24] LABS: Absolute Lymphocyte Count 0.61 10^3/uL (1.2-3.4); Absolute Neutrophil Count 10.93 10^3/uL (1.2-6.7)
[2024-05-16 18:33] LABS: ALT 21 U/L (14-59); AST 19 U/L (15-37); Albumin 4.7 g/dL (3.4-5.0); Alkaline Phosphatase 69 U/L (46-116); Anion Gap 11.4 mmol/L (3-11); BUN 9 mg/dL (7-18); CO2 27.6 mmol/L (21.0-32.0); CREATININE 1.1 mg/dL (0.55-1.02); Calcium 9.4 mg/dL (8.5-10.1); Chloride 101 mmol/L (98-107); Glucose 154 mg/dL (74-106); Lipase 118 U/L (16-77); Potassium 3.2 mmol/L (3.5-5.1); Sodium 140 mmol/L (136-145); Total Protein 8.3 g/dL (6.4-8.2)
[2024-05-16] MEDS: Potassium Chloride Liquid 20 MEQ PKT 40 MEQ PO (18:50)
[2024-05-16 19:15] VITALS: BP 130/71; PULSE 99
[2024-05-16] MEDS: Ondansetron O.D.T. 4 MG TABEF, 3 TABS/BTL PO (19:38)
[2024-05-16 19:46] VITALS: BP 125/88; PULSE 86; RESP 16; O2SAT 100
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
== END 2024-05-16 19:47 | disposition home or self-care (01) ==
PROVIDERS: Emergency Provider Emergency Medicine; PCP Nurse Practitioner Family
DX: R11.10 Vomiting, unspecified (principal); E86.0 Dehydration; E87.6 Hypokalemia; K85.90 Acute pancreatitis without necrosis or infection, unspecified; R10.32 Left lower quadrant pain
CPT/HCPCS: 36415; 80053; 83690; 96361; 96374; 99284; 85025; 99283; J1790

== ENCOUNTER 2024-05-24 17:38 | Outpatient (REF) | payer MEDICAID, SELFPAY ==
[2024-05-24 21:26] LABS: Abs Immature Grans 0.04 10^3/uL (0.0-0.06); Absolute Basophil Count 0.06 10^3/uL (0.0-0.2); Absolute Eosinophil Count 0.16 10^3/uL (0.0-0.7); Absolute Monocyte Count 0.54 10^3/uL (0.1-0.8); Absolute Neutrophil Count 4.67 10^3/uL (1.2-6.7); Basophils % 0.7 %; Eosinophils % 1.9 %; HCT 40.1 % (36.0-46.0); HGB 13.6 g/dL (11.2-15.7); Immature Grans % 0.5 %; Lymphocytes % 34.6 %; MCH 31.3 pg (27.0-33.0); MCHC 33.9 % (32.0-36.0); MCV 92 fL (80-95); MPV 9.9 fL (8.0-11.0); Monocytes % 6.5 %; Neutrophils % 55.8 %; Platelet Count 274 10^3/uL (130-400); RBC 4.34 10^6/uL (3.93-5.22); RDW 11.6 % (11.7-14.6); RDW-SD 39.6 fL; WBC 8.37 10^3/uL (4.4-10.8)
[2024-05-24 21:35] LABS: ALT 26 U/L (14-59); AST 21 U/L (15-37); Albumin 4.4 g/dL (3.4-5.0); Alkaline Phosphatase 67 U/L (46-116); Anion Gap 9.9 mmol/L (3-11); BUN 6 mg/dL (7-18); Bilirubin, Total 0.44 mg/dL (0.2-1.0); CO2 27.1 mmol/L (21.0-32.0); CREATININE 0.7 mg/dL (0.55-1.02); Chloride 105 mmol/L (98-107); Estimated GFR 115.59 (mL/min/1.73m2); Glucose 89 mg/dL (74-106); Lipase 52 U/L (<78); Potassium 3.8 mmol/L (3.5-5.1); Sodium 142 mmol/L (136-145); Total Protein 7.3 g/dL (6.4-8.2)
[2024-05-24 21:39] LABS: Calcium 8.7 mg/dL (8.5-10.1)
== END 2024-05-24 17:39 | disposition home or self-care (01) ==
LOC: NCHCN 17:38
PROVIDERS: PCP Nurse Practitioner Family; Visit Provider Family Medicine
DX: R11.2 Nausea with vomiting, unspecified (principal); Z87.19 Personal history of other diseases of the digestive system
CPT/HCPCS: 80053; 83690; 85025

== ENCOUNTER 2024-05-30 05:03 | Emergency (ER) | payer MEDICAID, SELFPAY ==
[2024-05-30] VITALS (24 sets, daily range): BP systolic 103–144; BP diastolic 74–91; PULSE 89–115; RESP 9–32; TEMP 36.4–36.5; O2SAT 97–100
[2024-05-30 05:30] LABS: Abs Immature Grans 0.05 10^3/uL (0.0-0.06); Absolute Basophil Count 0.05 10^3/uL (0.0-0.2); Absolute Eosinophil Count 0.06 10^3/uL (0.0-0.7); Absolute Monocyte Count 0.84 10^3/uL (0.1-0.8); Absolute Neutrophil Count 12.32 10^3/uL (1.2-6.7); Basophils % 0.3 %; Eosinophils % 0.4 %; HCT 43.1 % (36.0-46.0); HGB 14.7 g/dL (11.2-15.7); Immature Grans % 0.3 %; MCH 31.2 pg (27.0-33.0); MCHC 34.1 % (32.0-36.0); MCV 92 fL (80-95); MPV 9.1 fL (8.0-11.0); Monocytes % 5.3 %; Neutrophils % 77.7 %; Platelet Count 313 10^3/uL (130-400); RBC 4.71 10^6/uL (3.93-5.22); RDW 11.4 % (11.7-14.6); RDW-SD 38.9 fL; WBC 15.85 10^3/uL (4.4-10.8)
[2024-05-30 05:34] LABS: Absolute Lymphocyte Count 2.54 10^3/uL (1.2-3.4); Lactate 4.7 mmol/L (0.6-1.4)
[2024-05-30 05:40] LABS: HCG Qual (Serum) Negative
[2024-05-30] MEDS: ACETAMINOPHEN 1,000 MG/100 ML BAG 400 MG IVPB (05:47)
[2024-05-30] MEDS: Droperidol 5 MG/2 ML VIAL 1.25 MG IVP (05:47)
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
[2024-05-30 05:48] LABS: ALT 25 U/L (14-59); AST 25 U/L (15-37); Albumin 4.4 g/dL (3.4-5.0); Alkaline Phosphatase 74 U/L (46-116); Anion Gap 15.3 mmol/L (3-11); BUN 7 mg/dL (7-18); Bilirubin, Total 0.63 mg/dL (0.2-1.0); CO2 22.7 mmol/L (21.0-32.0); Chloride 105 mmol/L (98-107); Estimated GFR 75.34 (mL/min/1.73m2); Glucose 140 mg/dL (74-106); Lipase 41 U/L (<78); Potassium 3.9 mmol/L (3.5-5.1); Sodium 143 mmol/L (136-145); Total Protein 7.9 g/dL (6.4-8.2)
[2024-05-30] MEDS: Normal Saline 1,000 ML 1000 ML IV (05:48)
[2024-05-30 05:53] LABS: Calcium 9.2 mg/dL (8.5-10.1)
--- NOTE | 2024-05-30 06:15 | DI.US_ITS ---
Exam(s) US ABDOMEN EXAM: US ABDOMEN CLINICAL HISTORY: epigastric abdominal pain, eval RUQ/epigastrium TECHNIQUE: Ultrasound abdomen performed using standard protocol. COMPARISON: CT CT ABDOMEN PELVIS W from 05/03/2024 US US ABDOMEN LIMITED from 05/03/2024 FINDINGS: LIVER: Normal size and echogenicity. No focal liver lesions are seen. GALLBLADDER: No evidence of cholelithiasis. No evidence of wall thickening. No pericholecystic fluid identified. BARCLAY'S SIGN: Negative. BILIARY SYSTEM: No intrahepatic or extrahepatic biliary ductal dilation. KIDNEYS: Kidneys are symmetric in size. No evidence of renal calculi. No evidence of hydronephrosis. No renal mass or cyst identified. PANCREAS: Normal where visualized. SPLEEN: Not enlarged. ABDOMINAL AORTA AND IVC: Visualized portions normal caliber. ASCITES: None seen. IMPRESSION: Normal sonographic appearance of the upper abdomen. DATA REPOSITORY:
[2024-05-30] MEDS: LORazepam 2 MG/ML VIAL 1 MG IVP (06:49)
[2024-05-30] MEDS: Sucralfate 1 GM TAB PO (06:49)
[2024-05-30 09:07] LABS: Bilirubin Negative (Negative); Blood Negative (Negative); Clarity Clear (Clear); Glucose Negative (Negative); Ketones 15 mg/dL (Negative); Leukocyte Esterase Negative (Negative); Nitrite Negative (Negative); Specific Gravity 1.025 (1.005-1.025); Urobilinogen 0.2 mg/dL (Up to 0.2)
--- NOTE | 2024-05-30 09:18 | W.EDPROG ---
Date of service: 05/30/24 Time of Service: 09:26 Medical Decision Making Patient was signed out to me by my colleague Dr. Bravo. Please refer to HPI, physical exam, assessment and plan. Patient presented with epigastric discomfort. Laboratory workup had returned and was relatively benign except for mildly elevated white count and elevated lactate, likely consistent with dehydration. Abdominal exam was reassuring with no signs of an acute surgical abdomen. Ultrasound was ordered and we are pending read at time of signout. Ultrasound has returned with no acute process or abnormality. Repeat lactate has returned with a reassuring downtrend after hydration. On reassessment patient feels improved. Repeat exam demonstrates no lower abdominal pain or tenderness. Epigastric exam demonstrates no reproducible tenderness. No guarding or rebound. Exam notably reassuring. Symptoms clinically inconsistent with pancreatitis, small bowel obstruction, cholecystitis, pancreatic abscess, or other significant etiology. Suspect mild gastric irritation, potential adhesions. Symptoms are notably clinically inconsistent with mesenteric ischemia. But otherwise patient is tolerating p.o. well, and otherwise shows reassuring exam. Patient stable for discharge. Recommend bland diet at home. Discussed red flags for which to return. I have extensively reviewed the treatment plan and discharge instructions with the patient. I have addressed all patient concerns at this time. The patient was made aware of what symptoms to monitor for that would warrant a return to the emergency department. Discussed the plan with the patient, they demonstrate verbal understanding and agreement with our assessment and plan at this time. The documentation in this chart was dictated using [employer] dictation software. Please excuse any dictation errors. FINDINGS: LIVER: Normal size and echogenicity. No focal liver lesions are seen. GALLBLADDER: No evidence of cholelithiasis. No evidence of wall thickening. No pericholecystic fluid identified. BARCLAY'S SIGN: Negative. BILIARY SYSTEM: No intrahepatic or extrahepatic biliary ductal dilation. KIDNEYS: Kidneys are symmetric in size. No evidence of renal calculi. No evidence of hydronephrosis. No renal mass or cyst identified. PANCREAS: Normal where visualized. SPLEEN: Not enlarged. ABDOMINAL AORTA AND IVC: Visualized portions normal caliber. ASCITES: None seen. IMPRESSION: Normal sonographic appearance of the upper abdomen. Quality:SDOH Health Related Social Needs: No Data to Display Sign Out Sign Out Data: Sign Out Comment: epigastric abd pain and vomiting, elevated lactate. has received droperidol and ativan for N/V with some improvement. Pending US, repeat lactate after fluids. Last updated by Daniela Alexandre MD at 05/30/24 07:29 Discharge Plan Disposition Patient Disposition: Home Condition: Good Discharge Details Chief Complaint: Abd Prob Clinical Impression: Epigastric discomfort Primary Care Provider: Jessica Mohamud ED Provider: Shiv Green Home Meds and New Rx's Prescriptions: No Action promethazine 25 mg suppository 25 mg DE Q8H PRN PRN (Reason: nausea and vomiting) Qty: 12 0RF mirtazapine 15 mg tablet 7.5 mg PO HS Patient Comments: TAKE ONE TABLET BY MOUTH AT BEDTIME famotidine 20 mg tablet 20 mg PO DAILY Qty: 14 0RF methylphenidate HCl [Concerta] 54 mg tablet extended release 24hr 54 mg PO DAILY Patient Comments: TAKE ONE TABLET BY MOUTH EVERY DAY gabapentin 300 mg capsule 300 mg PO TID Patient Comments: TAKE ONE CAPSULE BY MOUTH THREE TIMES A DAY duloxetine 60 mg capsule,delayed release(DR/EC) 60 mg PO DAILY Patient Comments: TAKE ONE CAPSULE BY MOUTH EVERY DAY Discharge Instructions Instructions: Abdominal pain Additional Instructions: At this time your ultrasound has returned with no significant abnormalities. Your pancreas numbers and your gallbladder is reassuring on exam and laboratory evaluation. You have no infection in your urine thankfully. You were dehydrated. Please continue to hydrate well at home. Please take your [id number] antiacids or Maalox and Pepto-Bismol at home. Please stick with a bland diet for the next few days avoiding fatty foods greasy foods or tomato-based products. If you notice any worsening of your symptoms, or any new symptoms such as vomiting, diarrhea, fever, chills, shortness of breath, chest pain, numbness, weakness, or fainting , please return immediately to the emergency department for reevaluation. Please follow up with your primary care provider as soon as possible for reassessment and reevaluation. As always, it was a pleasure participating in your medical care today. Stand Alone Forms: Work Release Referrals: Jessica Mohamud [Primary Care Provider] -
[2024-05-30 09:31] LABS: Lactate 2.3 mmol/L (0.6-1.4)
== END 2024-05-30 09:51 | disposition home or self-care (01) ==
PROVIDERS: Student in an Organized Health Care Education/Training Program; Emergency Provider Student in an Organized Health Care Education/Training Program; PCP Nurse Practitioner Family
DX: R11.2 Nausea with vomiting, unspecified (principal); R10.13 Epigastric pain; Z87.891 Personal history of nicotine dependence
CPT/HCPCS: 00123; 36415; 80053; 83690; 96361; 96374; 96375; 99284; 76700; 81003; 83605; 84703; 85025; J0131; J1790; J2060

== ENCOUNTER 2024-06-28 12:28 | Outpatient (REF) | payer MEDICAID, SELFPAY ==
[2024-06-28 15:10] LABS: Abs Immature Grans 0.02 10^3/uL (0.0-0.06); Absolute Basophil Count 0.03 10^3/uL (0.0-0.2); Absolute Eosinophil Count 0.02 10^3/uL (0.0-0.7); Absolute Monocyte Count 0.42 10^3/uL (0.1-0.8); Absolute Neutrophil Count 6.28 10^3/uL (1.2-6.7); Basophils % 0.3 %; Eosinophils % 0.2 %; HCT 40.8 % (36.0-46.0); HGB 14.5 g/dL (11.2-15.7); Immature Grans % 0.2 %; Lymphocytes % 21.9 %; MCH 31.5 pg (27.0-33.0); MCHC 35.5 % (32.0-36.0); MCV 89 fL (80-95); MPV 9.9 fL (8.0-11.0); Monocytes % 4.8 %; Neutrophils % 72.6 %; Platelet Count 292 10^3/uL (130-400); RBC 4.61 10^6/uL (3.93-5.22); RDW 11.6 % (11.7-14.6); RDW-SD 37.2 fL; WBC 8.67 10^3/uL (4.4-10.8)
[2024-06-28 15:33] LABS: ALT 21 U/L (14-59); AST 19 U/L (15-37); Albumin 4.4 g/dL (3.4-5.0); Alkaline Phosphatase 65 U/L (46-116); Anion Gap 14.7 mmol/L (3-11); BUN 6 mg/dL (7-18); Bilirubin, Total 0.95 mg/dL (0.2-1.0); CO2 21.3 mmol/L (21.0-32.0); Chloride 105 mmol/L (98-107); Estimated GFR 75.34 (mL/min/1.73m2); Glucose 111 mg/dL (74-106); Lipase 43 U/L (<78); Potassium 3.6 mmol/L (3.5-5.1); Sodium 141 mmol/L (136-145); Total Protein 7.3 g/dL (6.4-8.2)
== END 2024-06-28 12:29 | disposition home or self-care (01) ==
LOC: NCHCN 12:28
PROVIDERS: PCP Nurse Practitioner Family; Visit Provider Family Medicine
DX: R10.9 Unspecified abdominal pain (principal)
CPT/HCPCS: 80053; 83690; 85025

== ENCOUNTER 2024-11-14 15:04 | Emergency (ER) | payer MEDICAID, SELFPAY ==
[2024-11-14 15:07] VITALS: BP 106/73; PULSE 102; RESP 18; TEMP 36.8; O2SAT 99
[2024-11-14 15:11] VITALS: BP 106/73; PULSE 102; RESP 18; TEMP 36.8; O2SAT 99
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
--- NOTE | 2024-11-14 15:30 | DI.CT_ITS ---
Exam(s) CT ABDOMEN PELVIS W EXAM: CT ABDOMEN PELVIS W CLINICAL HISTORY: LUQ tenderness, N/V TECHNIQUE: Imaging Protocol: Axial computed tomography images with coronal and sagittal reformatted images were created and reviewed. CONTRAST MATERIAL: Intravenous: Omnipaque 350 Contrast volume:75 mL Oral: No COMPARISON: CT CT ABDOMEN PELVIS W from 05/03/2024 FINDINGS: ABDOMEN: Lung Bases: No acute abnormality. Liver: Normal density. No measurable mass. Portal, Superior Mesenteric, and Splenic Veins: Unremarkable. Gallbladder and Biliary Tract: No radiodense calculus or dilation. Pancreas: Normal density, no abnormal calcifications or inflammatory process. Spleen: Normal. Adrenals: No masses seen. Kidneys: Normal size, contour and axis. No radiodense stones or obstructive uropathy. No masses seen. Abdominal Aorta: Abdominal portion non-dilated. Bowel: There is no evidence of bowel obstruction. There is mild thickening of the wall of the colon throughout. This may be due to poor distension but colitis should also be considered. Surgical clip s are seen in the cecum likely reflecting prior appendectomy. Peritoneal Cavity: No ascites, collection or mesenteric inflammatory response. No free air. Lymph Nodes: Within normal limits. Bones: Within normal limits for the patient's age. Soft Tissues: Unremarkable. PELVIS: Bladder: Symmetric distention, no gross wall thickening. Reproductive Organs: Status post hysterectomy. Lymph Nodes: Within normal limits. Bones: Within normal limits for the patient's age. IMPRESSION: 1. Mild diffuse thickening of the wall of the colon. This may be due to underdistention but colitis should also be considered. Please correlate clinically. 2. Otherwise no acute abdominal or pelvic process is present. RADIATION DOSE DELIVERED: 343.83mGy.cm Total DLP DATA REPOSITORY: All CT scans at this facility are submitted to the National Radiology Data Registry (NRDR) Dose Index Registry (DIR) with the [employer] ([employer]). RADIATION OPTIMIZATION: All CT scans at this facility use at least one of these dose optimization te chniques: automated exposure control; mA and/or kV adjustment per patient size (includes targeted exa ms where dose is matched to clinical indication); or iterative reconstruction.
[2024-11-14 15:54] LABS: Lactate 1.6 mmol/L (<or=2.0)
[2024-11-14 15:55] LABS: Abs Immature Grans 0.02 10^3/uL (0.0-0.06); Absolute Basophil Count 0.03 10^3/uL (0.0-0.2); Absolute Eosinophil Count 0.01 10^3/uL (0.0-0.7); Absolute Lymphocyte Count 0.88 10^3/uL (1.2-3.4); Absolute Monocyte Count 0.28 10^3/uL (0.1-0.8); Absolute Neutrophil Count 6.47 10^3/uL (1.2-6.7); Basophils % 0.4 %; Eosinophils % 0.1 %; HCT 39.7 % (36.0-46.0); HGB 14.2 g/dL (11.2-15.7); Immature Grans % 0.3 %; Lymphocytes % 11.4 %; MCH 31.8 pg (27.0-33.0); MCHC 35.8 % (32.0-36.0); MCV 89 fL (80-95); MPV 9.6 fL (8.0-11.0); Monocytes % 3.6 %; Neutrophils % 84.2 %; Platelet Count 232 10^3/uL (130-400); RBC 4.47 10^6/uL (3.93-5.22); RDW 11.5 % (11.7-14.6); WBC 7.69 10^3/uL (4.4-10.8)
[2024-11-14 15:56] LABS: ESR 1 mm/hr (0-20)
[2024-11-14 16:04] LABS: Bilirubin Negative (Negative); Blood Negative (Negative); Clarity Clear (Clear); Glucose Negative (Negative); Ketones 15 mg/dL (Negative); Leukocyte Esterase Negative (Negative); Nitrite Negative (Negative); Urobilinogen 0.2 mg/dL (Up to 0.2); pH 8.5 (5-8)
[2024-11-14] MEDS: Normal Saline - Diluent 50 ML VIAL IJ (16:10)
[2024-11-14 16:18] LABS: ALT 29 U/L (14-59); AST 26 U/L (15-37); Albumin 4.4 g/dL (3.4-5.0); Alkaline Phosphatase 68 U/L (46-116); BUN 9 mg/dL (7-18); Bilirubin, Total 0.9 mg/dL (0.2-1.0); CREATININE 0.8 mg/dL (0.55-1.02); Calcium 9.6 mg/dL (8.5-10.1); Chloride 104 mmol/L (98-107); Estimated GFR 97.87 (mL/min/1.73m2); Glucose 116 mg/dL (74-106); Lipase 35 U/L (<78); Magnesium 1.8 mg/dL (1.8-2.4); Potassium 4.1 mmol/L (3.5-5.1); Sodium 141 mmol/L (136-145); Total Protein 7.4 g/dL (6.4-8.2)
[2024-11-14 16:18] LABS: Bacteria Negative HPF (Negative); C & S Indicated? No; Crystals Negative HPF (Negative); Epithelial Cells Many HPF (Negative); Mucus Heavy (Negative); RBC 0-2 HPF (0-2); WBC Negative HPF (0-5)
[2024-11-14 16:19] LABS: C-Reactive Protein < 0.50 mg/dL (<or=0.5)
[2024-11-14 16:48] LABS: C Diff PCR Negative (Negative); EPI 027-NAP1-B1 PRESUMPTIVE NEGATIVE
[2024-11-14] MEDS: ACETAMINOPHEN 1,000 MG/100 ML BTL 400 MG IVPB (16:48)
[2024-11-14] MEDS: Droperidol 5 MG/2 ML VIAL 1.25 MG IVP (17:27)
[2024-11-14] MEDS: diphenhydrAMINE 50 MG/ML VIAL 25 MG IVP (17:28)
[2024-11-14 17:51] VITALS: BP 121/68; PULSE 91; RESP 21; TEMP 36.4; O2SAT 98
[2024-11-14 18:42] VITALS: BP 121/68; PULSE 91; RESP 18; TEMP 36.4; O2SAT 98
== END 2024-11-14 18:19 | disposition home or self-care (01) ==
PROVIDERS: Emergency Provider Physician Assistant; PCP Nurse Practitioner Family
DX: K52.9 Noninfective gastroenteritis and colitis, unspecified (principal); R11.2 Nausea with vomiting, unspecified; R10.12 Left upper quadrant pain
CPT/HCPCS: 99284; 99285; 96374; 96375; 36415; 80053; 83690; 85652; 74177; 81003; 81015; 83605; 83735; 85025; 86140; J0131; J1200; J1790

== ENCOUNTER 2024-12-11 07:51 | Emergency (ER) | payer MEDICAID, SELFPAY ==
[2024-12-11 07:54] VITALS: BP 134/67; PULSE 84; RESP 18; TEMP 36.6; O2SAT 100
[2024-12-11 07:58] VITALS: BP 134/67; PULSE 84; RESP 18; TEMP 36.6; O2SAT 100
[2024-12-11 08:51] LABS: Bilirubin Negative (Negative); Blood Negative (Negative); Clarity Clear (Clear); Glucose Negative (Negative); Ketones Negative (Negative); Leukocyte Esterase Negative (Negative); Nitrite Negative (Negative); Specific Gravity 1.015 (1.005-1.025); Urobilinogen 0.2 mg/dL (Up to 0.2)
[2024-12-11] MEDS: Normal Saline 1,000 ML 1000 ML IV (08:55)
[2024-12-11] MEDS: Famotidine 20 MG/2 ML VIAL IVP (08:56)
[2024-12-11] MEDS: ACETAMINOPHEN 500 MG/50 ML BAG 200 MG IVPB (08:56)
[2024-12-11] MEDS: Dexamethasone 4 MG/ML VIAL IVP (08:57)
[2024-12-11] MEDS: Hyoscyamine 0.5 MG/ML VIAL 0.25 MG IVP (08:57)
[2024-12-11 09:14] LABS: Abs Immature Grans 0.01 10^3/uL (0.0-0.06); Absolute Basophil Count 0.04 10^3/uL (0.0-0.2); Absolute Eosinophil Count 0.17 10^3/uL (0.0-0.7); Absolute Lymphocyte Count 1.58 10^3/uL (1.2-3.4); Absolute Monocyte Count 0.38 10^3/uL (0.1-0.8); Absolute Neutrophil Count 5.09 10^3/uL (1.2-6.7); Basophils % 0.6 %; Eosinophils % 2.3 %; HCT 38.3 % (36.0-46.0); HGB 13.3 g/dL (11.2-15.7); Immature Grans % 0.1 %; Lymphocytes % 21.7 %; MCH 31.8 pg (27.0-33.0); MCHC 34.7 % (32.0-36.0); MCV 92 fL (80-95); MPV 9.5 fL (8.0-11.0); Monocytes % 5.2 %; Neutrophils % 70.1 %; Platelet Count 237 10^3/uL (130-400); RBC 4.18 10^6/uL (3.93-5.22); RDW 11.4 % (11.7-14.6); RDW-SD 38.8 fL; WBC 7.27 10^3/uL (4.4-10.8)
[2024-12-11 09:33] LABS: ALT 24 U/L (14-59); AST 24 U/L (15-37); Albumin 4.6 g/dL (3.4-5.0); Alkaline Phosphatase 79 U/L (46-116); Anion Gap 13.3 mmol/L (3-11); BUN 6 mg/dL (7-18); Bilirubin, Total 0.7 mg/dL (0.2-1.0); CO2 26.7 mmol/L (21.0-32.0); CREATININE 0.7 mg/dL (0.55-1.02); Chloride 102 mmol/L (98-107); Estimated GFR 114.88 (mL/min/1.73m2); Glucose 102 mg/dL (74-106); Lipase 35 U/L (<78); Potassium 3.8 mmol/L (3.5-5.1); Sodium 142 mmol/L (136-145); Total Protein 7.7 g/dL (6.4-8.2)
[2024-12-11 10:16] VITALS: BP 122/83; PULSE 98; RESP 16; O2SAT 100
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
[2024-12-13 10:33] LABS: Lyme Ab w Rflx to Lyme Confirm Negative (Negative)
[2024-12-15 09:18] LABS: Anaplasma phagocytophilum Negative (Negative); B. miyamotoi PCR Negative (Negative); Babesia divergens/MO-1 Negative (Negative); Babesia duncani Negative (Negative); Babesia microti Negative (Negative); Ehrlichia chaffeensis Negative (Negative); Ehrlichia ewingii/canis Negative (Negative); Ehrlichia muris eauclairensis Negative (Negative)
== END 2024-12-11 10:16 | disposition home or self-care (01) ==
PROVIDERS: Emergency Provider Physician Assistant; PCP Nurse Practitioner Family
DX: R10.12 Left upper quadrant pain (principal); D69.3 Immune thrombocytopenic purpura
CPT/HCPCS: 80053; 83690; 87798; 96365; 96375; 99284; 81003; 85025; 86618; 99283; J0131; J1100; J1980

== ENCOUNTER 2024-12-21 15:48 | Emergency (ER) | payer MEDICAID, SELFPAY ==
[2024-12-21 15:53] VITALS: BP 107/71; PULSE 102; RESP 12; TEMP 36.6; O2SAT 99
[2024-12-21] MEDS: Lactated Ringers 1,000 ML 1000 ML IV (16:40)
[2024-12-21 16:46] LABS: Bilirubin Negative (Negative); Blood Negative (Negative); Clarity Clear (Clear); Glucose Negative (Negative); Ketones >=160 mg/dL (Negative); Leukocyte Esterase Negative (Negative); Nitrite Negative (Negative); Urobilinogen 0.2 mg/dL (Up to 0.2); pH 6.5 (5-8)
[2024-12-21 16:51] LABS: Anion Gap 11.3 mmol/L (3-11); BUN 5 mg/dL (7-18); CO2 24.7 mmol/L (21.0-32.0); CREATININE 0.6 mg/dL (0.55-1.02); Calcium 9.1 mg/dL (8.5-10.1); Chloride 102 mmol/L (98-107); Creatine Kinase 89 U/L (26-192); Estimated GFR 119.23 (mL/min/1.73m2); Glucose 120 mg/dL (74-106); Magnesium 1.8 mg/dL (1.8-2.4); Potassium 3.5 mmol/L (3.5-5.1); Sodium 138 mmol/L (136-145)
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
== END 2024-12-21 17:25 | disposition home or self-care (01) ==
PROVIDERS: Emergency Provider Emergency Medicine; PCP Nurse Practitioner Family
DX: E86.0 Dehydration (principal)
CPT/HCPCS: 99283; 99284; 81025; 80048; 82550; 96360; 81003; 83735

== ENCOUNTER 2025-01-12 00:57 | Outpatient (CLI) | payer MEDICAID, SELFPAY ==
--- NOTE | 2025-01-12 | DI.CT_ITS ---
Exam(s) CT ABDOMEN PELVIS CTA EXAM: CT ABDOMEN PELVIS CTA CLINICAL HISTORY: K55.1 chronic vascular disorders of intestine, abnl pain. TECHNIQUE: Imaging Protocol: Axial computed tomography images with coronal and sagittal reformatted images were created and reviewed CONTRAST MATERIAL: Intravenous: Omnipaque 350 Contrast volume:100 ml Oral: None COMPARISON: CT CT ABDOMEN PELVIS W from 11/14/2024 FINDINGS: VISUALIZED LUNG BASES: No infiltrates nor pleural effusions. No significant nodules. ABDOMEN: AORTA: There is no significant atherosclerotic involvement of the abdominal aorta. There is no evidence of abdominal aortic aneurysm nor dissection.There is no aneurysmal dilatation of the common iliac arteries.The celiac and superior mesenteric arteries are patent.No evidence of stenosis nor embolization of these arteries. The inferior mesenteric artery is also noted to be patent. No significant stenosis at the origin of the renal arteries. There are 2 renal arteries on each side incidentally noted. There is no ascites. There are no ischemic appearing bowel loops. No evidence of bowel obstruction nor free air nor abscess. LIVER: Liver is hypodense implying a diffuse steatosis. There are no discrete focal hepatic lesions identified. No obvious dilated intrahepatic ducts. GALLBLADDER/BILIARY: The gallbladder wall exhibits uniform enhancement on this arterial phase study. There is no true gallbladder wall edema nor gallbladder distension. No obvious radiopaque calculi in the gallbladder lumen. CBD is not dilated. PANCREAS: No evidence of pancreatic mass nor dilatation of the pancreatic duct. SPLEEN: Spleen is not enlarged. There are no intrasplenic lesions. ADRENALS: There are no significant adrenal masses. KIDNEYS: No cysts evident. No calculi nor hydronephrosis. No solid renal masses. LYMPH NODES: There is no retroperitoneal nor para-aortic adenopathy. No obvious mesenteric masses. ABDOMINAL WALL: No evidence of significant anterior abdominal wall hernia. No significant inguinal hernia. GI: There is no evidence of bowel obstruction, free air, nor abscess. PELVIS: LYMPH NODES: There is no intrapelvic nor inguinal adenopathy. GI: Appendix appears to be surgically absent. There is no evidence of acute appendicitis.There is no significant sigmoid diverticular disease. URINARY BLADDER: No calculi nor masses evident. The pelvic ureters are not dilated. REPRODUCTIVE: The uterus is surgically absent. There are no abnormal adnexal masses and no free fluid in the pelvis. OSSEOUS: No significant osseous lesions. z no fractures. No listhesis. IMPRESSION: 1. No evidence of significant atherosclerotic disease in the abdominal aorta and aortoiliac segments and there is also no evidence of aortic nor iliac vessel dissection. 2. There are no ischemic appearing bowel loops. 3. There is thin uniform enhancement of the wall the gallbladder evident on this arterial phase study incidentally noted. There is no gallbladder wall edema nor gallbladder distension. No obvious intraluminal calculi. 4. Evidence of previous hysterectomy and appendectomy. RADIATION DOSE DELIVERED: 260.73mGy.cm Total DLP DATA REPOSITORY: All CT scans at this facility are submitted to the National Radiology Data Registry (NRDR) Dose Index Registry (DIR) with the [employer] ([employer]). RADIATION OPTIMIZATION: All CT scans at this facility use at least one of these dose optimization techniques: automated exposure control; mA and/or kV adjustment per patient size (includes targeted exams where dose is matched to clinical indication); or iterative reconstruction.
[2025-01-12] MEDS: Normal Saline - Diluent 50 ML VIAL IJ (14:16)
[2025-01-12] MEDS: Omnipaque 350 MG/ML 100 ML BTL IJ (14:17)
== END 2025-01-12 01:17 ==
PROVIDERS: PCP Neuromusculoskeletal Medicine & OMM; Visit Provider Neuromusculoskeletal Medicine & OMM
DX: K55.1 Chronic vascular disorders of intestine (principal)
CPT/HCPCS: 74174; J3490

== ENCOUNTER 2025-03-10 16:16 | Emergency (ER) | payer MEDICAID, SELFPAY ==
[2025-03-10 16:17] VITALS: BP 114/76; PULSE 111; RESP 16; TEMP 36.7; O2SAT 98
[2025-03-10 16:20] VITALS: BP 114/76; PULSE 111; RESP 16; TEMP 36.7; O2SAT 98
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
[2025-03-10] MEDS: Normal Saline 1,000 ML 1000 ML IV ×2 (17:43→18:33)
[2025-03-10 18:01] LABS: Abs Immature Grans 0.01 10^3/uL (0.0-0.06); HCT 37.5 % (36.0-46.0); HGB 13.2 g/dL (11.2-15.7); Immature Grans % 0.1 %; MCH 31.6 pg (27.0-33.0); MCHC 35.2 % (32.0-36.0); MCV 90 fL (80-95); MPV 9.3 fL (8.0-11.0); Platelet Count 234 10^3/uL (130-400); RBC 4.18 10^6/uL (3.93-5.22); RDW 11.2 % (11.7-14.6); RDW-SD 36.3 fL; WBC 7.64 10^3/uL (4.4-10.8)
[2025-03-10 18:11] LABS: ALT 15 U/L (14-59); AST 17 U/L (15-37); Albumin 4.7 g/dL (3.4-5.0); Alkaline Phosphatase 60 U/L (46-116); Anion Gap 10.6 mmol/L (3-11); BUN 9 mg/dL (7-18); Bilirubin, Total 0.8 mg/dL (0.2-1.0); CO2 26.4 mmol/L (21.0-32.0); Calcium 9.3 mg/dL (8.5-10.1); Chloride 101 mmol/L (98-107); Estimated GFR 97.87 (mL/min/1.73m2); Glucose 95 mg/dL (74-106); Glucose Negative (Negative); Magnesium 1.9 mg/dL (1.8-2.4); Potassium 3.8 mmol/L (3.5-5.1); Sodium 138 mmol/L (136-145); Total Protein 7.5 g/dL (6.4-8.2)
[2025-03-10 18:22] LABS: Lipase 40 U/L (<78)
[2025-03-10 18:35] VITALS: BP 115/61; RESP 16
[2025-03-10 19:45] VITALS: BP 129/71; PULSE 91; RESP 16; TEMP 36.7; O2SAT 98
--- NOTE | 2025-03-11 07:29 | NUR.NOTE ---
accessed chart to verify UPT Nursing Note:
== END 2025-03-10 19:46 | disposition home or self-care (01) ==
PROVIDERS: Emergency Provider Registered Nurse Emergency; PCP Neuromusculoskeletal Medicine & OMM
DX: K31.84 Gastroparesis (principal); R11.2 Nausea with vomiting, unspecified
CPT/HCPCS: 80053; 83690; 96360; 96361; 99284; 81003; 83735; 85025; 99283

== ENCOUNTER 2025-03-11 07:02 | Emergency (ER) | payer MEDICAID, SELFPAY ==
[2025-03-11] VITALS (11 sets, daily range): BP systolic 101–128; BP diastolic 59–85; PULSE 76–121; RESP 11–33; TEMP 35.8; O2SAT 98–100
--- NOTE | 2025-03-11 07:15 | RT.EKG_ITS ---
APPROVED REPORT Exam: Resting ECG Reason for Exam: qtc eval Patient Location: E HR:73 bpm ECG Measurements Heart Rate 73 AXIS WY 132 P 35 QRSd 94 QRS 59 QT 419 T 41 QTc 463 Conclusion Sinus rhythm, rate 73 No interval abnormalities No STEMI Baseline artifact V5/V6 likely due to patient movement No priors available for comparison
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
[2025-03-11 07:41] LABS: Glucose Negative (Negative)
[2025-03-11] MEDS: Lactated Ringers 1,000 ML 1000 ML IV (07:45)
[2025-03-11] MEDS: diphenhydrAMINE 50 MG/ML VIAL 25 MG IVP (07:51)
[2025-03-11 07:52] LABS: Abs Immature Grans 0.02 10^3/uL (0.0-0.06); HCT 35.2 % (36.0-46.0); HGB 12.5 g/dL (11.2-15.7); Immature Grans % 0.3 %; MCH 31.6 pg (27.0-33.0); MCHC 35.5 % (32.0-36.0); MCV 89 fL (80-95); MPV 9.4 fL (8.0-11.0); Platelet Count 222 10^3/uL (130-400); RBC 3.96 10^6/uL (3.93-5.22); RDW 11.3 % (11.7-14.6); RDW-SD 36.6 fL; WBC 6.14 10^3/uL (4.4-10.8)
[2025-03-11] MEDS: Droperidol 5 MG/2 ML VIAL 1.25 MG IVP (07:52)
[2025-03-11 08:06] LABS: ALT 16 U/L (14-59); AST 18 U/L (15-37); Albumin 4.3 g/dL (3.4-5.0); Alkaline Phosphatase 56 U/L (46-116); Anion Gap 13.6 mmol/L (3-11); BUN 5 mg/dL (7-18); Bilirubin, Total 1.0 mg/dL (0.2-1.0); CO2 23.4 mmol/L (21.0-32.0); Calcium 8.9 mg/dL (8.5-10.1); Chloride 105 mmol/L (98-107); Estimated GFR 114.88 (mL/min/1.73m2); Glucose 95 mg/dL (74-106); Lipase 36 U/L (<78); Magnesium 1.9 mg/dL (1.8-2.4); Potassium 3.7 mmol/L (3.5-5.1); Sodium 142 mmol/L (136-145); Total Protein 7.0 g/dL (6.4-8.2)
[2025-03-11] MEDS: LORazepam 1 MG TAB PO (08:37)
--- NOTE | 2025-03-11 09:15 | NUR.NOTE ---
Nursing Note PTstated she did not have any questions for the provider prior to DC
== END 2025-03-11 09:25 | disposition home or self-care (01) ==
PROVIDERS: Emergency Provider Emergency Medicine; PCP Neuromusculoskeletal Medicine & OMM
DX: K31.84 Gastroparesis (principal); R11.2 Nausea with vomiting, unspecified; R82.4 Acetonuria
CPT/HCPCS: 36415; 80053; 81025; 83690; 93005; 96361; 96374; 96375; 99284; 81003; 83735; 85025; 93010; J1200; J1790

== ENCOUNTER 2025-04-24 03:30 | Outpatient (CLI) | payer MEDICAID, SELFPAY ==
--- NOTE | 2025-04-24 06:15 | DI.US_ITS ---
Exam(s) US PELVIS TRANSVAGINAL EXAM: US PELVIS TRANSVAGINAL CLINICAL HISTORY: re-check ovarian cyst,n83.209. TECHNIQUE: Transabdominal and transvaginal pelvic ultrasound was performed using standard protocol. COMPARISON: US PELVIS TRANSVAG from 10/24/[address] ABDOMEN PELVIS W from 11/14/[address] ABDOMEN PELVIS CTA from 01/12/2025 FINDINGS: UTERUS: Status post hysterectomy. OVARIES: Right: 3.3 x 2.2 x 1.2 cm Cyst or mass: No suspicious cystic or solid masses. There are small follicle seen on the right ovary less than 1 cm in size. Left: 3.5 x 1.7 x 3.3 cm Cyst or mass: No suspicious cystic or solid masses. There are small hemorrhagic cysts seen on the left ovary. The largest measures 1.6 x 1.1 x 1.3 cm. Small simple follicles are also seen on the left ovary less than 1 cm in size. DOPPLER: Color: Symmetric and uniform flow to both ovaries. CUL-DE-SAC: Free fluid: None. Other: None. IMPRESSION: 1. Status post hysterectomy. 2. Bilateral ovarian follicles. 3. 1.6 cm left ovarian hemorrhagic cyst. DATA REPOSITORY:
== END 2025-04-24 03:50 ==
LOC: DI 03:30
PROVIDERS: PCP Neuromusculoskeletal Medicine & OMM; Visit Provider Obstetrics & Gynecology
DX: N83.201 Unspecified ovarian cyst, right side (principal); N83.202 Unspecified ovarian cyst, left side
CPT/HCPCS: 76830; 76856